=== PATIENT | male | born 1955 | race Caucasian/White ===

== ENCOUNTER → 2017-03-01 | Outpatient (CLI) | payer MEDICARE ==
[2017-03-01 17:51] LABS: Blood Urea Nitrogen 12 mg/dL (9-20); Non-African American GFR(MDRD) >60 (>60 ml/min/1.73 sqM)
== END | disposition home or self-care (01) ==
LOC: LABWHC1 16:55
PROVIDERS: ATTEND Psychiatry & Neurology Pain Medicine
DX: Z01.812 Encounter for preprocedural laboratory examination (principal); R41.3 Other amnesia
CPT/HCPCS: 36415; 82565; 84520

== ENCOUNTER → 2017-03-04 | Outpatient (CLI) | payer MEDICARE ==
--- NOTE | 2017-03-04 18:48 | MR ---
MRI brain with and without contrast HISTORY: Memory loss, R 41.3 Multiplanar multisequence and postcontrast images obtained through the brain following 18 cc MultiHan ce IV. No comparisons There is no restricted diffusion. There is no hemorrhage or hydrocephalus. Cortical atrophy is likely age-related. Pituitary, corpus callosum, cervical medullary junction, cerebellopontine angles are no rmal. There may be mucus retention cyst within the maxillary sinus, mucosal disease is present bilate rally. There are normal vascular flow voids. Increased signal on inversion recovery T2-weighted seque nces within the amanda, scattered hyperintensities also present within the periventricular white matter on inversion recovery and T2-weighted sequences. There are approximately 20-30 lesions. There is no abnormal enhancement following contrast administration. The orbits show a symmetric appearance. IMPRESSION: Findings likely represent demyelination related to chronic small vessel ischemia in the a ppropriate clinical setting. Age-related atrophy. Sinus disease.
== END | disposition home or self-care (01) ==
LOC: RADMRIMAIN 14:09
PROVIDERS: ATTEND Psychiatry & Neurology Pain Medicine
DX: R41.3 Other amnesia (principal); G31.9 Degenerative disease of nervous system, unspecified
CPT/HCPCS: 70553; A9577

== ENCOUNTER → 2017-03-31 | Outpatient (CLI) | payer MEDICARE ==
--- NOTE | 2017-03-31 15:10 | NM ---
EXAMINATION TYPE: NM DatScan Brain SPECT DATE OF EXAM: 03/31/2017 2:48 PM COMPARISON: NONE HISTORY: Memory loss TECHNIQUE: 10 drops of Lugol's solution was administered 1 hour prior to injection as a thyroid bloc gay agent. After the administration of 4.26 mCi I-123 Ioflupane DaTscan. Images obtained 3 hours p ost injection. SPECT images of the brain were acquired with axial and coronal reconstructions. FINDINGS: There is a normal comma shape to the striata demonstrated bilaterally. There is balanced lo ss bilaterally, slightly greater on the right than the left. 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
== END | disposition home or self-care (01) ==
LOC: RADNMMAIN 09:54
PROVIDERS: ATTEND Psychiatry & Neurology Neurology
DX: R41.3 Other amnesia (principal)
CPT/HCPCS: 78607; A9584

== ENCOUNTER 2018-02-06 11:31 | Observation (INO) | payer MEDICARE ==
[2018-02-06] MEDS ORDERED: ASPIRIN 81 MG PO STA (11:51)
[2018-02-06] MEDS ORDERED: NITROGLYCERIN OINT 1 INCH/GM PACKET TOPICAL STA (11:51)
--- NOTE | 2018-02-06 11:54 | ED ---
General Adult HPI - General Chief complaint: Chest Pain Stated complaint: High BP Time Seen by Provider: 02/06/18 11:35 Source: patient, RN notes reviewed Mode of arrival: wheelchair Limitations: no limitations - History of Present Illness Initial comments: This is a 62-year-old male who presents emergency Department with a past medical history significant for stents in December and a stent a few years ago. Patient states she was lying on the floor playing with his dog and all of a sudden he became extremely diaphoretic and dizzy he got up he was a little bit short of breath but he had no chest pain. Patient states he is exact same symptoms he had with every prior to his stenting. Patient states the only difference was he did have a little chest pain in December and today he had none. Patient denies any palpitations. Patient denies any recent fever chills or cough. Patient states he was dizzy but he did not feel near syncopal. Patient denies any leg swelling patient denies any calf pain. Patient denies abdominal pain patient denies nausea vomiting diarrhea. Patient states he feels better currently. - Related Data Home Medications Medication Instructions Recorded Confirmed Nadolol 40 mg PO QAM 10/07/14 02/06/18 Nitroglycerin Sl Tabs [Nitrostat] 0.4 mg SUBLINGUAL Q5M PRN 10/07/14 02/06/18 buPROPion HCL [Wellbutrin XL] 300 mg PO QAM 10/07/14 02/06/18 Doxazosin [Cardura] 4 mg PO BID 03/03/15 02/06/18 lamoTRIgine 150 mg PO BID 03/03/15 02/06/18 Donepezil [Aricept] 10 mg PO BID 12/20/17 02/06/18 Hydrocodone/Acetaminophen [[place] 1 tab PO Q6HR PRN 12/20/17 02/06/18 7.5-325] Memantine HCl [Namenda] 5 mg PO BID 12/20/17 02/06/18 Pramipexole Di-HCl [Mirapex] 1 mg PO HS 12/20/17 02/06/18 Primidone [Mysoline] 100 mg PO BID 12/20/17 02/06/18 QUEtiapine FUMARATE [SEROquel] 25 mg PO BID 12/20/17 02/06/18 Sertraline [Zoloft] 150 mg PO DAILY 12/20/17 02/06/18 Previous Rx's Medication Instructions Recorded Zolpidem [Ambien] 10 mg PO HS PRN #7 tab 11/28/15 Aspirin 81 mg PO DAILY #30 chew 12/22/17 Clopidogrel [Plavix] 75 mg PO DAILY #30 tab 12/24/17 Lisinopril [Prinivil] 20 mg PO DAILY #30 tablet 12/24/17 Pravastatin Sodium [Pravachol] 40 mg PO HS #30 tab 12/24/17 Allergies Allergy/AdvReac Type Severity Reaction Status Date / Time No Known Allergies Allergy Verified 02/06/18 12:14 Review of Systems ROS Statement: Those systems with pertinent positive or pertinent negative responses have been documented in the HPI. ROS Other: All systems not noted in ROS Statement are negative. Past Medical History Past Medical History: Coronary Artery Disease (CAD), Chest Pain / Angina, Dementia, GERD/Reflux, GI Bleed, Hyperlipidemia, Hypertension, Myocardial Infarction ([place]), Neurologic Disorder, Pneumonia, Prostate Disorder, Renal Disease, Skin Disorder, Sleep Apnea/CPAP/BIPAP Additional Past Medical History / Comment(s): 02/08/16 Pt presented to [facility] ER with chest pain which started last nite and he had sweating, SOB and nausea along with it. Pt spoke to his PCP and he was advised to come to the ER. Pt is being admitted with clinical impression of chest pain. Other HX: Early parkinson's with essential tremors, recent R nephrolithiasis with surgery, EDITH with no CPAP, diarrhea off and on, pneumonia/bronchitis, BPH, blood in stool-EGD /colonoscopy were normal. past hiatal hernia(sx), past falls last one 02/2017 Last Myocardial Infarction Date:: 06/09/13 History of Any Multi-Drug Resistant Organisms: None Reported Past Surgical History: Heart Catheterization, Heart Catheterization With Stent Additional Past Surgical History / Comment(s): 05/2013 stent to LAD and then a cardiac cath which showed stent patent, Recent R kidney stone removal, 03/19/15 Laparoscopic Elizabeth fundlaplication. SKIN GRAFTS CHEST & BACK FROM BASSETT AT 13 YRS OLD., COLONOSCOPY. EGD, L lazy eye surgery as toddler. Past Anesthesia/Blood Transfusion Reactions: No Reported Reaction Additional Past Anesthesia/Blood Transfusion Reaction / Comment(s): Pt received blood in 1967 without reaction. Date of Last Stent Placement:: 06/09/13 Past Psychological History: Bipolar, Depression Smoking Status: Never smoker Past Drug Use History: None Reported - Past Family History Mother Family Medical History: Liver Disease Additional Family Medical History / Comment(s): Mother was an alcoholic. She of cirrhosis of the liver at age 60yrs. Father Family Medical History: Cancer, Coronary Artery Disease (CAD), Myocardial Infarction ([place]) Additional Family Medical History / Comment(s): SKIN CA. Father of a [place] at age 65 yrs. Brother(s) Family Medical History: Cancer Additional Family Medical History / Comment(s): LEUKEMIA, LYMPH NODE CA AND MULTIPLE MYELOMA. General Exam - General Exam Comments Initial Comments: GENERAL: Patient is well-developed and well-nourished. Patient is nontoxic and well- hydrated and is in mild distress. ENT: Neck is soft and supple. No significant lymphadenopathy is noted. Oropharynx is clear. Moist mucous membranes. Neck has full range of motion without eliciting any pain. EYES: The sclera were anicteric and conjunctiva were pink and moist. Extraocular movements were intact and pupils were equal round and reactive to light. Eyelids were unremarkable. PULMONARY: Unlabored respirations. Good breath sounds bilaterally. No audible rales rhonchi or wheezing was noted. CARDIOVASCULAR: There is a regular rate and rhythm without any murmurs gallops or rubs. ABDOMEN: Soft and nontender with normal bowel sounds. No palpable organomegaly was noted. There is no palpable pulsatile mass. SKIN: Skin is clear with no lesions or rashes and otherwise unremarkable. NEUROLOGIC: Patient is alert and oriented x3. Cranial nerves II through XII are grossly intact. Motor and sensory are also intact. Normal speech, volume and content. Symmetrical smile. MUSCULOSKELETAL: Normal extremities with adequate strength and full range of motion. No lower extremity swelling or edema. No calf tenderness. LYMPHATICS: No significant lymphadenopathy is noted PSYCHIATRIC: Normal psychiatric evaluation. Normal interpersonal interactions appears functionally intact in deals appropriately with others. No signs of depression. No signs of anxiety. Limitations: no limitations Course Vital Signs 02/06/18 02/06/18 02/06/18 11:44 11:54 12:39 Temperature 98.6 F Pulse Rate 47 L 55 L Respiratory 16 17 Rate Blood Pressure 194/105 161/95 147/83 O2 Sat by Pulse 96 94 L Oximetry Medical Decision Making - Medical Decision Making EKG shows sinus bradycardia 51 bpm DE interval 282 QRS is 90 QT interval 470 QTC is 433. Patient's EKG shows no ST segment elevation or depression or T wave abnormalities are noted Patient's chest x-ray shows no acute abnormality. Patient's been asymptomatic since being in the emergency department. Blood pressure for them bilaterally and there was no discrepancy. Patient was started on heparin. I spoke with Dr. Horton he agreed to admit the patient admitted the patient continued aspirin Nitropaste and heparin on the floor. - Lab Data Result diagrams: 02/06/18 11:50 02/06/18 11:50 Lab Results 02/06/18 02/06/18 02/06/18 Range/Units 11:50 11:50 11:50 WBC 5.9 (3.8-10.6) k/uL RBC 4.62 (4.30-5.90) m/uL Hgb 13.3 (13.0-17.5) gm/dL Hct 40.2 (39.0-53.0) % MCV 87.0 (80.0-100.0) fL MCH 28.8 (25.0-35.0) pg MCHC 33.1 (31.0-37.0) g/dL RDW 14.2 (11.5-15.5) % Plt Count 252 (150-450) k/uL Neutrophils % 64 % Lymphocytes % 18 % Monocytes % 8 % Eosinophils % 7 % Basophils % 1 % Neutrophils # 3.8 (1.3-7.7) k/uL Lymphocytes # 1.1 (1.0-4.8) k/uL Monocytes # 0.5 (0-1.0) k/uL Eosinophils # 0.4 (0-0.7) k/uL Basophils # 0.0 (0-0.2) k/uL PT (9.0-12.0) sec INR (<1.2) APTT (22.0-30.0) sec Sodium 143 (137-145) mmol/L Potassium 3.9 (3.5-5.1) mmol/L Chloride 106 (98-107) mmol/L Carbon Dioxide 23 (22-30) mmol/L Anion Gap 14 mmol/L BUN 13 (9-20) mg/dL Creatinine 0.73 (0.66-1.25) mg/dL Est GFR (CKD-EPI)AfAm >90 (>60 ml/min/1.73 sqM) Est GFR (CKD-EPI)NonAf >90 (>60 ml/min/1.73 sqM) Glucose 97 (74-99) mg/dL Calcium 9.0 (8.4-10.2) mg/dL Magnesium 2.1 (1.6-2.3) mg/dL Total Bilirubin 0.4 (0.2-1.3) mg/dL AST 25 (17-59) U/L ALT 33 (21-72) U/L Alkaline Phosphatase 72 (38-126) U/L Total Creatine Kinase 86 (55-170) U/L CK-MB (CK-2) 1.7 (0.0-2.4) ng/mL CK-MB (CK-2) Rel Index 2.0 Troponin I <0.012 (0.000-0.034) ng/mL Total Protein 7.0 (6.3-8.2) g/dL Albumin 4.1 (3.5-5.0) g/dL 02/06/18 Range/Units 11:50 WBC (3.8-10.6) k/uL RBC (4.30-5.90) m/uL Hgb (13.0-17.5) gm/dL Hct (39.0-53.0) % MCV (80.0-100.0) fL MCH (25.0-35.0) pg MCHC (31.0-37.0) g/dL RDW (11.5-15.5) % Plt Count (150-450) k/uL Neutrophils % % Lymphocytes % % Monocytes % % Eosinophils % % Basophils % % Neutrophils # (1.3-7.7) k/uL Lymphocytes # (1.0-4.8) k/uL Monocytes # (0-1.0) k/uL Eosinophils # (0-0.7) k/uL Basophils # (0-0.2) k/uL PT 10.3 (9.0-12.0) sec INR 1.0 (<1.2) APTT 23.2 (22.0-30.0) sec Sodium (137-145) mmol/L Potassium (3.5-5.1) mmol/L Chloride (98-107) mmol/L Carbon Dioxide (22-30) mmol/L Anion Gap mmol/L BUN (9-20) mg/dL Creatinine (0.66-1.25) mg/dL Est GFR (CKD-EPI)AfAm (>60 ml/min/1.73 sqM) Est GFR (CKD-EPI)NonAf (>60 ml/min/1.73 sqM) Glucose (74-99) mg/dL Calcium (8.4-10.2) mg/dL Magnesium (1.6-2.3) mg/dL Total Bilirubin (0.2-1.3) mg/dL AST (17-59) U/L ALT (21-72) U/L Alkaline Phosphatase (38-126) U/L Total Creatine Kinase (55-170) U/L CK-MB (CK-2) (0.0-2.4) ng/mL CK-MB (CK-2) Rel Index Troponin I (0.000-0.034) ng/mL Total Protein (6.3-8.2) g/dL Albumin (3.5-5.0) g/dL Disposition Clinical Impression: Unstable angina Disposition: ADMITTED IP TO THIS HOSP Referrals: Hiren Horton DO [Primary Care Provider] - 1-2 days Time of Disposition: 12:53
[2018-02-06 12:04] LABS: Basophils % (A) 1 %; Eosinophils # (A) 0.4 k/uL (0-0.7); Eosinophils % (A) 7 %; HCT 40.2 % (39.0-53.0); HGB 13.3 gm/dL (13.0-17.5); Lymphocytes # (A) 1.1 k/uL (1.0-4.8); Lymphocytes % (A) 18 %; MCH 28.8 pg (25.0-35.0); MCHC 33.1 g/dL (31.0-37.0); Mean Platelet Volume 6.7; Monocytes # (A) 0.5 k/uL (0-1.0); Monocytes % (A) 8 %; Neutrophils # (A) 3.8 k/uL (1.3-7.7); Neutrophils % (A) 64 %; Platelet Count 252 k/uL (150-450); RBC 4.62 m/uL (4.30-5.90); RDW 14.2 % (11.5-15.5); WBC 5.9 k/uL (3.8-10.6)
[2018-02-06 12:10] LABS: ALT 33 U/L (21-72); AST 25 U/L (17-59); Albumin 4.1 g/dL (3.5-5.0); Alkaline Phosphatase 72 U/L (38-126); Anion Gap 14 mmol/L; Blood Urea Nitrogen 13 mg/dL (9-20); Carbon Dioxide 23 mmol/L (22-30); Chloride 106 mmol/L (98-107); Glucose 97 mg/dL (74-99); Magnesium 2.1 mg/dL (1.6-2.3); Potassium 3.9 mmol/L (3.5-5.1); Sodium 143 mmol/L (137-145); Total Bilirubin 0.4 mg/dL (0.2-1.3)
--- NOTE | 2018-02-06 12:13 | XR ---
EXAMINATION TYPE: XR chest 2V DATE OF EXAM: 02/06/2018 COMPARISON: 12/20/2017 HISTORY: Chest pain TECHNIQUE: Frontal and lateral views of the chest are obtained. FINDINGS: There is no focal air space opacity, pleural effusion, or pneumothorax seen. The cardiac silhouette size is upper limits of normal. The osseous structures are intact. Minimal multilevel de generative changes of the thoracic spine are noted. IMPRESSION: No acute cardiopulmonary process.
[2018-02-06 12:23] LABS: Partial Thromboplastin Time 23.2 sec (22.0-30.0); Prothrombin Time 10.3 sec (9.0-12.0)
[2018-02-06 12:24] LABS: Creatine Kinase 86 U/L (55-170)
[2018-02-06 12:36] LABS: Creatine Kinase MB 1.7 ng/mL (0.0-2.4); Troponin I <0.012 ng/mL (0.000-0.034)
[2018-02-06] MEDS ORDERED: HEPARIN SODIUM,PORCINE 5,000 UNIT/ML 1 ML VIAL IV ONE (12:53)
[2018-02-06] MEDS ORDERED: NITROGLYCERIN SL TABS 0.4 MG TAB SUBLINGUAL PRN ×2 (12:55→18:24)
[2018-02-06] MEDS: HEPARIN SOD,PORK IN 0.45% NACL 25,000 UNIT in 0.45% NACL 1 500ML.BAG IV SCH (13:21)
[2018-02-06] MEDS ORDERED: ZOLPIDEM 10 MG TAB PO PRN (18:24)
[2018-02-06] MEDS ORDERED: HYDROcodone/APAP 7.5-325MG 1 EACH TAB PO PRN (18:24)
[2018-02-06 18:42] LABS: Creatine Kinase 72 U/L (55-170)
[2018-02-06 18:56] LABS: Creatine Kinase MB 1.7 ng/mL (0.0-2.4); Troponin I <0.012 ng/mL (0.000-0.034)
[2018-02-06] MEDS: DONEPEZIL 10 MG TAB PO SCH (20:49)
[2018-02-06] MEDS: DOXAZOSIN 4 MG TAB PO SCH (20:49)
[2018-02-06] MEDS: NITROGLYCERIN OINT 1 INCH/GM PACKET TOPICAL SCH ×2 (20:49→23:07)
[2018-02-06] MEDS: lamoTRIgine 100 MG TAB PO SCH (20:50)
[2018-02-06] MEDS: QUEtiapine 25 MG TAB PO SCH (20:50)
[2018-02-06] MEDS: PRIMIDONE 50 MG TAB PO SCH (20:50)
[2018-02-06] MEDS: MEMANTINE 5 MG TAB PO SCH (20:50)
[2018-02-06] MEDS ORDERED: PRAMIPEXOLE 1 MG TAB PO SCH (21:00)
[2018-02-06] MEDS ORDERED: PRAVASTATIN SODIUM 40 MG TAB PO SCH (21:00)
[2018-02-07 01:58] LABS: Creatine Kinase 58 U/L (55-170)
[2018-02-07 02:12] LABS: Creatine Kinase MB 1.1 ng/mL (0.0-2.4); Troponin I <0.012 ng/mL (0.000-0.034)
[2018-02-07 04:58] LABS: Cholesterol 201 mg/dL (<200); HDL Cholesterol 34 mg/dL (40-60); LDL Cholesterol,Calculated 128 mg/dL (0-99); Triglycerides 195 mg/dL (<150)
[2018-02-07] MEDS: NITROGLYCERIN OINT 1 INCH/GM PACKET TOPICAL SCH ×2 (06:04→13:09)
[2018-02-07] MEDS ORDERED: ATORVASTATIN 80 MG TAB PO SCH (09:00)
[2018-02-07] MEDS ORDERED: CLOPIDOGREL 75 MG TAB PO SCH (09:00)
[2018-02-07] MEDS ORDERED: buPROPion XL 300 MG TAB.ER.24H PO SCH (09:00)
[2018-02-07] MEDS ORDERED: LISINOPRIL 20 MG TAB PO SCH (09:00)
[2018-02-07] MEDS ORDERED: NADOLOL 20 MG TAB PO SCH (09:00)
[2018-02-07] MEDS ORDERED: ASPIRIN 325 MG TAB PO SCH (09:00)
[2018-02-07] MEDS ORDERED: ASPIRIN 81 MG PO SCH (09:00)
[2018-02-07] MEDS ORDERED: SERTRALINE 50 MG TAB PO SCH (09:00)
[2018-02-07] MEDS ORDERED: AMINOPHYLLINE 500 MG/20 ML VIAL IV PRN (09:30)
[2018-02-07] MEDS ORDERED: REGADENOSON 0.4 MG/5 ML SYRINGE IV ONE (09:30)
--- NOTE | 2018-02-07 10:38 | P.HPIM ---
History of Present Illness H&P Date: 02/07/18 Chief Complaint: Dizziness, diaphoresis 62-year-old male who presented to the emergency room with a chief complaint of diaphoresis and dizziness. The patient states he was playing with his dog when he suddenly began to feel dizzy and noticed he was diaphoretic. The patient states these symptoms were similar to symptoms that he experienced when he required stent placement and became worried. He denied any chest pain. Denies shortness of breath. Denies nausea or vomiting. The patient has a history of hyperlipidemia, hypertension, myocardial infarction , pneumonia, sleep apnea, and memory impairment. The patient also has a history of coronary artery disease and underwent a cardiac catheterization on after having an abnormal stress test and had 3 stents placed: Mid RCA, distal left circumflex, and mid left circumflex. The patient has also had a prior stent placed to the LAD. Chest x-ray: Negative for an acute process. EKG: Sinus bradycardia. Rate 51. No ST elevation or depression. Laboratory data: WBC 5.9. Hemoglobin 13.3. Platelet count 252. Sodium 143. Potassium 3.9. BUN 13. Creatinine 0.73. Glucose 97. Magnesium 2.1. Troponins negative 3 The patient was admitted to the hospital under the care of Dr. Horton to the observation unit. Consultations were placed to cardiology. Review of Systems GENERAL: Positive for diaphoresis and dizziness, which has resolved. Patient denies fever. Denies chills. EYES: Denies blurred vision. Denies vision changes. Denies eye pain. EARS, NOSE, MOUTH, & THROAT: Denies headache. Denies sore throat. Denies ear pain. RESPIRATORY: Denies cough. Denies shortness of breath. Denies sputum production. Denies hemoptysis. CARDIOVASCULAR: Denies chest pain or pressure. Denies palpitations. Denies arrhythmias. GASTROINTESTINAL: Denies abdominal pain. Denies diarrhea. Denies constipation. Denies nausea. Denies vomiting. Denies heartburn. Denies blood in the stool. GENITOURINARY: Denies urinary frequency. Denies burning. Denies dysuria. Denies cloudy urine. Denies blood in the urine. MUSCULOSKELETAL: Denies myalgias. Denies joint swelling. Denies decreased range of motion beyond patients baseline. INTEGUMENTARY: Denies pruitis. Denies rash. PSYCHIATRIC: Denies suicidal or homicial ideations. ENDOCRINE: Denies weight change. Denies polydipsia. Denies polyuria. HEMATOLOGIC: Denies bleeding disorders. Past Medical History Past Medical History: Coronary Artery Disease (CAD), Chest Pain / Angina, Dementia, GERD/Reflux, GI Bleed, Hyperlipidemia, Hypertension, Myocardial Infarction ([place]), Neurologic Disorder, Pneumonia, Prostate Disorder, Renal Disease, Skin Disorder, Sleep Apnea/CPAP/BIPAP Additional Past Medical History / Comment(s): Pt recently admitted to [facility] with chest pain/had another PCI with stent. Other hx: early parkinson's with essential tremors, R nephrolithiasis with surgery, EDITH with no CPAP, diarrhea off and on, pneumonia/bronchitis, BPH, blood in stool-EGD/colonoscopy were normal, past hiatal hernia(sx), past falls. Last Myocardial Infarction Date:: 06/09/13 History of Any Multi-Drug Resistant Organisms: None Reported Past Surgical History: Heart Catheterization, Heart Catheterization With Stent Additional Past Surgical History / Comment(s): 05/2013 stent to LAD and then a cardiac cath which showed stent patent, Recent R kidney stone removal, 03/19/15 Laparoscopic Elizabeth fundlaplication. SKIN GRAFTS CHEST & BACK FROM BASSETT AT 13 YRS OLD., COLONOSCOPY. EGD, Jennifer rosales eye surgery as toddler. Past Anesthesia/Blood Transfusion Reactions: No Reported Reaction Additional Past Anesthesia/Blood Transfusion Reaction / Comment(s): Pt received blood in 1967 without reaction. Date of Last Stent Placement:: 12/2017 Smoking Status: Never smoker - Past Family History Mother Family Medical History: Liver Disease Additional Family Medical History / Comment(s): Mother was an alcoholic. She of cirrhosis of the liver at age 60yrs. Father Family Medical History: Cancer, Coronary Artery Disease (CAD), Myocardial Infarction ([place]) Additional Family Medical History / Comment(s): SKIN CA. Father of a [place] at age 65 yrs. Brother(s) Family Medical History: Cancer Additional Family Medical History / Comment(s): LEUKEMIA, LYMPH NODE CA AND MULTIPLE MYELOMA. Medications and Allergies Home Medications Medication Instructions Recorded Confirmed Type Nadolol 40 mg PO QAM 10/07/14 02/06/18 History Nitroglycerin Sl Tabs [Nitrostat] 0.4 mg SUBLINGUAL Q5M PRN 10/07/14 02/06/18 History buPROPion HCL [Wellbutrin XL] 300 mg PO QAM 10/07/14 02/06/18 History Doxazosin [Cardura] 4 mg PO BID 03/03/15 02/06/18 History lamoTRIgine 150 mg PO BID 03/03/15 02/06/18 History Zolpidem [Ambien] 10 mg PO HS PRN #7 tab 11/28/15 02/06/18 Rx Donepezil [Aricept] 10 mg PO BID 12/20/17 02/06/18 History Hydrocodone/Acetaminophen [[place] 1 tab PO Q6HR PRN 12/20/17 02/06/18 History 7.5-325] Memantine HCl [Namenda] 5 mg PO BID 12/20/17 02/06/18 History Pramipexole Di-HCl [Mirapex] 1 mg PO HS 12/20/17 02/06/18 History Primidone [Mysoline] 100 mg PO BID 12/20/17 02/06/18 History QUEtiapine FUMARATE [SEROquel] 25 mg PO BID 12/20/17 02/06/18 History Sertraline [Zoloft] 150 mg PO DAILY 12/20/17 02/06/18 History Aspirin 81 mg PO DAILY #30 chew 12/22/17 02/06/18 Rx Clopidogrel [Plavix] 75 mg PO DAILY #30 tab 12/24/17 02/06/18 Rx Lisinopril [Prinivil] 20 mg PO DAILY #30 tablet 12/24/17 02/06/18 Rx Pravastatin Sodium [Pravachol] 40 mg PO HS #30 tab 12/24/17 02/06/18 Rx Allergies Allergy/AdvReac Type Severity Reaction Status Date / Time No Known Allergies Allergy Verified 02/06/18 12:14 Physical Exam Vitals: Vital Signs Temp Pulse Pulse Resp BP BP Pulse Ox 02/07/18 08:00 97.8 F 55 L 18 155/91 96 02/07/18 04:00 97.6 F 55 L 16 137/76 93 L 02/07/18 00:00 54 L 16 02/06/18 23:36 98.1 F 54 L 16 136/81 94 L 02/06/18 20:00 49 L 16 02/06/18 19:35 97.8 F 49 L 16 151/76 95 02/06/18 18:44 98 02/06/18 18:01 97.6 F 46 L 17 159/88 96 02/06/18 17:45 96.9 F L 48 L 17 118/62 96 02/06/18 16:05 98.7 F 47 L 17 157/82 98 02/06/18 14:23 88 17 139/77 97 02/06/18 13:32 54 L 16 128/75 98 02/06/18 12:39 55 L 17 147/83 94 L 02/06/18 11:54 161/95 02/06/18 11:44 98.6 F 47 L 16 194/105 96 Intake and Output 02/06/18 02/07/18 02/07/18 22:59 06:59 14:59 Intake Total 377.265 473.282 Balance 377.265 473.282 Intake: IV 320 0.9 160 Heparin Sod,Pork in 0.45% 160 NaCl 25,000 unit In 0.45 % NaCl 1 500ml.bag @ 10. 02 UNITS/KG/HR 19.99 mls/ hr IV .Q24H [facility]OR[facility] Rx#: [id number] Intake, IV Titration 137.265 153.282 Amount Heparin Sod,Pork in 0.45% 137.265 153.282 NaCl 25,000 unit In 0.45 % NaCl 1 500ml.bag @ 10. 02 UNITS/KG/HR 19.99 mls/ hr IV .Q24H [facility]ORES Rx#: [id number] Oral 240 Other: Voiding Method Toilet Toilet Toilet # Voids 1 Weight 99.7 kg GENERAL: This is a 62-year-old male in no apparent distress at the time of examination. Pleasant and cooperative. HEENT: Head is atraumatic, normocephalic. Pupils are equal, round, and reactive to light. Sclerae anicteric. Conjunctivae are clear. Mucus membranes of the mouth are moist. Neck is supple. RESPIRATORY: Clear to ausculation. No wheezes, rales, or rhonchi. No use of accessory muscles. Patient maintaining oxygen saturation greater than 92%. No chest wall tenderness is noted on palpation or with deep breathing. CARDIOVASCULAR: Bradycardic. Regular rate and rhythm. S1 and S2 noted. No systolic or diastolic murmur auscultated. No JVD noted. No S3 or S4 noted. GASTROINTESTINAL: No distention noted. Abdomen soft and round. Normal active bowel sounds auscultated x 4 quadrants. No pain or tenderness noted upon palpation. INTEGUMENTARY: No cyanosis. No jaundice. No rashes noted. No cellulitis noted. EXTREMITIES: 2+ peripheral pulses. No evidence of peripheral edema. No calf tenderness noted. NEUROLOGIC: Cranial nerves II-XII intact. PSYCHIATRIC: Awake, alert, and oriented X 3. Appropriate affect. Intact judgement and insight. Results CBC & Chem 7: 02/06/18 11:50 02/06/18 11:50 Labs: Abnormal Lab Results - Last 24 Hours (Table) 02/06/18 02/06/18 02/07/18 Range/Units 11:30 19:24 01:05 APTT 32.8 H 38.4 H (22.0-30.0) sec Triglycerides 195 H (<150) mg/dL Cholesterol 201 H (<200) mg/dL LDL Cholesterol, Calc 128 H (0-99) mg/dL HDL Cholesterol 34 L (40-60) mg/dL 02/07/18 Range/Units 07:30 APTT 56.8 H (22.0-30.0) sec Triglycerides (<150) mg/dL Cholesterol (<200) mg/dL LDL Cholesterol, Calc (0-99) mg/dL HDL Cholesterol (40-60) mg/dL Thrombosis Risk Factor Assmnt - Choose All That Apply Any of the Below Risk Factors Present?: Yes Each Factor Represents 1 point: Obesity (BMI >25) Other Risk Factors: Yes Each Risk Factor Represents 2 Points: Age 61-74 years Other congenital or acquired thrombophilia - If yes, enter type in comment: No Thrombosis Risk Factor Assessment Total Risk Factor Score: 3 Thrombosis Risk Factor Assessment Level: Moderate Risk Assessment and Plan Plan: ASSESSMENT: 1. Complaints of dizziness and diaphoresis in a patient with recent stent placement who describes symptoms as being similiar to previous episode, troponins negative x 3, rule out acute coronary syndrome 2. Coronary artery disease with recent cardiac catheterization on 12/23/2017 with stent placement to the mid RCA, distal left circumflex, and mid left circumflex. Also previous stent to LAD 3. Hyperlipidemia 4. Essential hypertension 5. Sleep apnea PLAN: Cardiology on consult. Appreciate recommendations and input Patient will undergo stress test today Home meds as appropriate Monitor labs GI prophylaxis: Protonix 40 mg PO Daily DVT prophylaxis: Patient is currently on a heparin drip Monitor vital signs and address as appropriate Further recommendations pending patient's course Nurse practitioner note has been reviewed by physician. Signing provider agrees with the documented findings, assessment, and plan of care.
[2018-02-07 12:30] VITALS: BP 160/98; PULSE 57; RESP 16; TEMP 98.1
[2018-02-07] MEDS: MEMANTINE 5 MG TAB PO SCH (12:38)
[2018-02-07] MEDS: QUEtiapine 25 MG TAB PO SCH (12:38)
[2018-02-07] MEDS: DOXAZOSIN 4 MG TAB PO SCH (12:38)
[2018-02-07] MEDS: PRIMIDONE 50 MG TAB PO SCH (12:38)
[2018-02-07] MEDS: DONEPEZIL 10 MG TAB PO SCH (12:38)
[2018-02-07] MEDS: lamoTRIgine 100 MG TAB PO SCH (12:39)
--- NOTE | 2018-02-07 12:51 | CONS ---
CONSULTATION This is a 62-year-old gentleman with a history of multivessel PCI. Sometime probably 3 years or more ago, he had a LAD stenting performed. The details of the LAD stenting are not available to me. As recently as December of this year, he underwent stenting of circumflex as well as the right coronary artery, performed by Dr. Hernandez on 12/23/2017. At that time, the LAD was widely patent. He sees Dr. Gibbons usually in the office as an outpatient. He came into the hospital yesterday mainly with a complaint of feeling suddenly diaphoretic, sick and had pressure and discomfort in the chest. The quality of his chest discomfort is not strongly suggestive angina, but patient and both insist that he had a similar presentation last time. He was playing with his dog and then lying on the floor, suddenly felt dizzy, diaphoretic, then had pressure and discomfort across the chest. This pain has not recurred. He is feeling well at this time. His troponins are normal. EKG does not reveal acute changes. However, patient and both insist that his discomfort in the chest is strongly suggestive of his similar episode in December when he came in and had PCI of both RCA and distal circumflex and mid circumflex. In view of this, I am recommending a Lexiscan stress test. At the time of my evaluation, patient is resting comfortably without symptoms. PAST MEDICAL HISTORY: CAD with multivessel PCI. More than 3 years ago, LAD stenting and the vessel was patent in December of this year. He had stenting of mid and distal circumflex and RCA in December. He has history of prior VT, details unclear. He also has history of obstructive sleep apnea, wears a CPAP. He has had some Elizabeth fundoplication surgery performed according to the chart. SOCIAL HISTORY: Patient is not a smoker. Does not consume alcohol. MEDICATIONS: At home include nadolol 40 mg daily, Wellbutrin, Cardura, aspirin 81 mg daily, Plavix 75 mg daily, lisinopril 20 mg daily, pravastatin 40 mg daily. LDL cholesterol is still elevated of more than 120. He also takes Mysoline, Seroquel, Zoloft. ALLERGIES: No known drug allergies. PHYSICAL EXAMINATION: Blood pressure is 138/70, pulse rate is 60 per minute, regular. HEENT: Unremarkable. Fundus was not examined by me. Neck is supple. No JVD. I do not hear a carotid bruit. Heart exam reveals S1, S2 heard normally. No significant murmurs. Lungs are clear. Abdomen is soft, nontender. Lower extremities reveal diminished pulses. Central nervous system is normal. EKG revealed sinus bradycardia, no acute changes, voltage criteria for LVH. IMPRESSION: 1. Chest pain syndrome with diaphoresis. Cannot exclude angina in a patient with multivessel PCI. 2. Hypertension. 3. Hyperlipidemia. 4. History of some obstructive sleep apnea syndrome, on CPAP. RECOMMENDATIONS: I am recommending that we increase activity. If he has any symptoms, I will perform cardiac cath. If he has no symptoms, will perform a Lexiscan stress test and then make further recommendations. Based on the results of the stress test, will make further recommendations. Discussed my thoughts in detail with the patient and . Thank you very much for the consult. CARL / KAVON: [id number] /
--- NOTE | 2018-02-07 12:51 | NM ---
EXAMINATION TYPE: NM stress lexiscan cardiolite DATE OF EXAM: 02/07/2018 COMPARISON: NONE HISTORY: Chest pain TECHNIQUE: After the intravenous administration of 10.26 mCi Tc 99m Sestamibi - Cardiolite resting S PECT images acquired 45 minutes post injection. The patient received 0.4mg Lexiscan, 26.3 mCi Tc 99m Sestamibi - Stress images obtained [address] injection FINDINGS: Review of stress and rest SPECT images demonstrates no distinct perfusion abnormality. Gated analysi s shows normal wall motion with an estimated left ventricular ejection fraction of 56 %. TID is withi n normal limits calculated at 0.88. IMPRESSION: 1. No scintigraphic evidence for reversible ischemia. 2. Estimated left ventricular ejection fraction of 56%.
[2018-02-07] MEDS: HEPARIN SOD,PORK IN 0.45% NACL 25,000 UNIT in 0.45% NACL 1 500ML.BAG IV SCH (13:10)
--- NOTE | 2018-02-07 14:14 | P.DS ---
Providers Date of admission: 02/06/18 12:55 Expected date of discharge: 02/07/18 Attending physician: Hiren Horton Consults: 02/06/18 12:55 Consult Physician Urgent Consulting Provider: [facility] Reason/Comments: Unstable angina Do you want consulting provider notified?: Yes Primary care physician: Hiren Horton [facility] Course: 62-year-old male who presented to the emergency room with a chief complaint of diaphoresis and dizziness. The patient states he was playing with his dog when he suddenly began to feel dizzy and noticed he was diaphoretic. The patient states these symptoms were similar to symptoms that he experienced when he required stent placement and became worried. He denied any chest pain. Denies shortness of breath. Denies nausea or vomiting. The patient has a history of hyperlipidemia, hypertension, myocardial infarction , pneumonia, sleep apnea, and memory impairment. The patient also has a history of coronary artery disease and underwent a cardiac catheterization on after having an abnormal stress test and had 3 stents placed: Mid RCA, distal left circumflex, and mid left circumflex. The patient has also had a prior stent placed to the LAD. Chest x-ray: Negative for an acute process. EKG: Sinus bradycardia. Rate 51. No ST elevation or depression. Laboratory data: WBC 5.9. Hemoglobin 13.3. Platelet count 252. Sodium 143. Potassium 3.9. BUN 13. Creatinine 0.73. Glucose 97. Magnesium 2.1. Troponins negative 3 The patient was evaluated by cardiology. He underwent stress testing which was negative. He was cleared for discharge from a cardiac standpoint. He is to follow up with his information systems director on an outpatient basis. The patient was deemed stable for discharge. He is to follow up with Dr. Horton and his information systems director on an outpatient basis. patient is to resume all his previous home medications. DISCHARGE DIAGNOSIS: 1. Complaints of dizziness and diaphoresis in a patient with recent stent placement who describes symptoms as being similiar to previous episode, troponins negative x 3, acute coronary syndrome ruled out, stress testing negative 2. Coronary artery disease with recent cardiac catheterization on 12/23/2017 with stent placement to the mid RCA, distal left circumflex, and mid left circumflex. Also previous stent to LAD 3. Hyperlipidemia 4. Essential hypertension 5. Sleep apnea Nurse practitioner note has been reviewed by physician. Signing provider agrees with the documented findings, assessment, and plan of care. Plan - Discharge Summary Discharge Rx Participant: No New Discharge Prescriptions: Continue Nitroglycerin Sl Tabs [Nitrostat] 0.4 mg SUBLINGUAL Q5M PRN PRN Reason: Angina Nadolol 40 mg PO QAM buPROPion HCL [Wellbutrin XL] 300 mg PO QAM Doxazosin [Cardura] 4 mg PO BID lamoTRIgine 150 mg PO BID Zolpidem [Ambien] 10 mg PO HS PRN #7 tab PRN Reason: Agitation Sertraline [Zoloft] 150 mg PO DAILY Primidone [Mysoline] 100 mg PO BID Memantine HCl [Namenda] 5 mg PO BID Donepezil [Aricept] 10 mg PO BID Hydrocodone/Acetaminophen [[place] 7.5-325] 1 tab PO Q6HR PRN PRN Reason: Pain QUEtiapine FUMARATE [SEROquel] 25 mg PO BID Pramipexole Di-HCl [Mirapex] 1 mg PO HS Aspirin 81 mg PO DAILY #30 chew Clopidogrel [Plavix] 75 mg PO DAILY #30 tab Lisinopril [Prinivil] 20 mg PO DAILY #30 tablet Pravastatin Sodium [Pravachol] 40 mg PO HS #30 tab Discharge Medication List Nadolol 40 mg PO QAM 10/07/14 [History] Nitroglycerin Sl Tabs [Nitrostat] 0.4 mg SUBLINGUAL Q5M PRN 10/07/14 [History] buPROPion HCL [Wellbutrin XL] 300 mg PO QAM 10/07/14 [History] Doxazosin [Cardura] 4 mg PO BID 03/03/15 [History] lamoTRIgine 150 mg PO BID 03/03/15 [History] Zolpidem [Ambien] 10 mg PO HS PRN #7 tab 11/28/15 [Rx] Donepezil [Aricept] 10 mg PO BID 12/20/17 [History] Hydrocodone/Acetaminophen [[place] 7.5-325] 1 tab PO Q6HR PRN 12/20/17 [History] Memantine HCl [Namenda] 5 mg PO BID 12/20/17 [History] Pramipexole Di-HCl [Mirapex] 1 mg PO HS 12/20/17 [History] Primidone [Mysoline] 100 mg PO BID 12/20/17 [History] QUEtiapine FUMARATE [SEROquel] 25 mg PO BID 12/20/17 [History] Sertraline [Zoloft] 150 mg PO DAILY 12/20/17 [History] Aspirin 81 mg PO DAILY #30 chew 12/22/17 [Rx] Clopidogrel [Plavix] 75 mg PO DAILY #30 tab 12/24/17 [Rx] Lisinopril [Prinivil] 20 mg PO DAILY #30 tablet 12/24/17 [Rx] Pravastatin Sodium [Pravachol] 40 mg PO HS #30 tab 12/24/17 [Rx] Follow up Appointment(s)/Referral(s): Hiren Horton DO [Primary Care Provider] - 1 Week Rod Gibbons MD [STAFF PHYSICIAN] - 2 Weeks Discharge Disposition: HOME SELF-CARE
[2018-02-08] MEDS ORDERED: PANTOPRAZOLE 40 MG TABLET PO SCH (07:30)
--- NOTE | 2018-02-09 11:29 | EST ---
EXERCISE STRESS AGE: 62 SEX: M HT: 74" WT: 219 PROTOCOL: Lexiscan Cardiolite Stress Test HEART RATE REST: 53 BLOOD PRESSURE REST: 156/87 MAXIMUM HEART RATE ACHIEVED: 80 MAXIMUM BLOOD PRESSURE: 140/84 85% MPHR: 135 100% MPHR: 157 INDICATIONS: Chest pain. CLINICAL INFORMATION: Baseline EKG revealed a sinus mechanism with minor nonspecific ST abnormality. With Lexiscan administration. heart rate went up from 53 to 77 beats per minute. Blood pressure changed from 156/87 to 140/84. Patient had transient shortness of breath. EKG remained unremarkable with minor resting EKG changes. By EKG criteria, this is unremarkable Lexiscan stress test with minor resting changes. The nuclear scan results which are more pertinent, will be reported by the radiologist. MMBRYNL / IJN: [id number] /
== END 2018-02-07 15:10 | disposition home or self-care (01) ==
LOC: EC 11:31 → 3OBS 12:55
PROVIDERS: ADMIT Family Medicine; ATTEND Family Medicine
DX: R42 Dizziness and giddiness (principal); R61 Generalized hyperhidrosis; I25.10 Atherosclerotic heart disease of native coronary artery without angina pectoris; Z95.5 Presence of coronary angioplasty implant and graft; I10 Essential (primary) hypertension; E78.5 Hyperlipidemia, unspecified; G47.33 Obstructive sleep apnea (adult) (pediatric); G25.0 Essential tremor; G20 Parkinson's disease; F03.90 Unspecified dementia, unspecified severity, without behavioral disturbance, psychotic disturbance, mood disturbance, and anxiety; I25.2 Old myocardial infarction; N40.0 Benign prostatic hyperplasia without lower urinary tract symptoms; K21.9 Gastro-esophageal reflux disease without esophagitis; F31.9 Bipolar disorder, unspecified; Z79.82 Long term (current) use of aspirin; Z79.02 Long term (current) use of antithrombotics/antiplatelets; Z79.899 Other long term (current) drug therapy; Z99.89 Dependence on other enabling machines and devices; Z87.01 Personal history of pneumonia (recurrent); Z87.442 Personal history of urinary calculi; Z87.19 Personal history of other diseases of the digestive system; Z87.448 Personal history of other diseases of urinary system; Z83.79 Family history of other diseases of the digestive system; Z81.1 Family history of alcohol abuse and dependence; Z82.49 Family history of ischemic heart disease and other diseases of the circulatory system; Z80.7 Family history of other malignant neoplasms of lymphoid, hematopoietic and related tissues; Z80.6 Family history of leukemia
CPT/HCPCS: 99285 ×2; 96365 ×2; 96366 ×7; 96376 ×2; 36415; 93005; 93017; 80061; 80053; 82550 ×2; 82553 ×2; 83735; 84484 ×2; 85025; 85610; 85730 ×2; 71046; 78452; G0378 ×2; A9500; J1644 ×2; J2785

== ENCOUNTER 2018-03-07 17:18 | Inpatient (IN) | payer MEDICARE ==
[2018-03-07] MEDS ORDERED: RX INFO: IV CONTRAST WAS GIVEN 1 EACH MISC MISCELLANE PRN (19:53)
--- NOTE | 2018-03-07 19:59 | ED ---
SOB HPI - General Chief Complaint: Shortness of Breath Stated Complaint: DSYPNEA ON EXERTION, SENT BY FOR CT Time Seen by Provider: 03/07/18 19:45 Source: patient Mode of arrival: ambulatory Limitations: no limitations - History of Present Illness Initial Comments: This 62-year-old white male presents with a complaint of some dyspnea on exertion. This is been present for approximately 2 months ever since he had some cardiac stents placed. He has an occasional cough which is nonproductive. He states that the dyspnea is worse with exertion and better with rest. He denies any fevers or chills. There is no chest pain. He denies any leg pain or swelling or history of DVT or PE. He denies any history of pulmonary problems particularly asthma or COPD. He is never smoked. He apparently was seen at his primary care physician's office today and they found that he had a lowering of his pulse ox with exertion. He walked around office and his pulse ox dropped from 94% down to 88%. His doctor sent him to the ER for further evaluation and requests that he have a CT angiogram of his chest for prescription with the patient. He denies any other complaints or modifying factors. - Related Data Home Medications Medication Instructions Recorded Confirmed Nadolol 40 mg PO QAM 10/07/14 03/07/18 Nitroglycerin Sl Tabs [Nitrostat] 0.4 mg SUBLINGUAL Q5M PRN 10/07/14 03/07/18 buPROPion HCL [Wellbutrin XL] 300 mg PO QAM 10/07/14 03/07/18 Doxazosin [Cardura] 4 mg PO BID 03/03/15 03/07/18 lamoTRIgine 150 mg PO BID 03/03/15 03/07/18 Donepezil [Aricept] 10 mg PO BID 12/20/17 03/07/18 Hydrocodone/Acetaminophen [[place] 1 tab PO Q6HR PRN 12/20/17 03/07/18 7.5-325] Memantine HCl [Namenda] 5 mg PO BID 12/20/17 03/07/18 Pramipexole Di-HCl [Mirapex] 1 mg PO HS 12/20/17 03/07/18 Primidone [Mysoline] 100 mg PO BID 12/20/17 03/07/18 QUEtiapine FUMARATE [SEROquel] 25 mg PO BID 12/20/17 03/07/18 Sertraline [Zoloft] 150 mg PO DAILY 12/20/17 03/07/18 Eszopiclone [L[place]esta] 2 mg PO HS 03/07/18 03/07/18 Previous Rx's Medication Instructions Recorded Aspirin 81 mg PO DAILY #30 chew 12/22/17 Clopidogrel [Plavix] 75 mg PO DAILY #30 tab 12/24/17 Lisinopril [Prinivil] 20 mg PO DAILY #30 tablet 12/24/17 Pravastatin Sodium [Pravachol] 40 mg PO HS #30 tab 12/24/17 Allergies Allergy/AdvReac Type Severity Reaction Status Date / Time No Known Allergies Allergy Verified 03/07/18 19:57 Review of Systems ROS Statement: Those systems with pertinent positive or pertinent negative responses have been documented in the HPI. ROS Other: All systems not noted in ROS Statement are negative. Past Medical History Past Medical History: Coronary Artery Disease (CAD), Chest Pain / Angina, Dementia, GERD/Reflux, GI Bleed, Hyperlipidemia, Hypertension, Myocardial Infarction (ME), Neurologic Disorder, Pneumonia, Prostate Disorder, Renal Disease, Skin Disorder, Sleep Apnea/CPAP/BIPAP Additional Past Medical History / Comment(s): Pt recently admitted to [facility] with chest pain/had another PCI with stent. Other hx: early parkinson's with essential tremors, R nephrolithiasis with surgery, EDITH with no CPAP, diarrhea off and on, pneumonia/bronchitis, BPH, blood in stool-EGD/colonoscopy were normal, past hiatal hernia(sx), past falls. Last Myocardial Infarction Date:: 06/09/13 History of Any Multi-Drug Resistant Organisms: None Reported Past Surgical History: Heart Catheterization, Heart Catheterization With Stent Additional Past Surgical History / Comment(s): 05/2013 stent to LAD and then a cardiac cath which showed stent patent, Recent R kidney stone removal, 03/19/15 Laparoscopic Elizabeth fundlaplication. SKIN GRAFTS CHEST & BACK FROM [place] AT 13 YRS OLD., COLONOSCOPY. EGD, L lazy eye surgery as toddler. Past Anesthesia/Blood Transfusion Reactions: No Reported Reaction Additional Past Anesthesia/Blood Transfusion Reaction / Comment(s): Pt received blood in 1967 without reaction. Date of Last Stent Placement:: 12/2017 Past Psychological History: Bipolar, Depression Smoking Status: Never smoker Past Alcohol Use History: None Reported Past Drug Use History: None Reported - Past Family History Mother Family Medical History: Liver Disease Additional Family Medical History / Comment(s): Mother was an alcoholic. She of cirrhosis of the liver at age 60yrs. Father Family Medical History: Cancer, Coronary Artery Disease (CAD), Myocardial Infarction (ME) Additional Family Medical History / Comment(s): SKIN CA. Father of a ME at age 65 yrs. Brother(s) Family Medical History: Cancer Additional Family Medical History / Comment(s): LEUKEMIA, LYMPH NODE CA AND MULTIPLE MYELOMA. General Exam - General Exam Comments Initial Comments: GENERAL: The patient is well nourished and well hydrated. VITAL SIGNS: Heart rate, blood pressure, respiratory rate reviewed as recorded in nurse's notes. EYES: Pupils are round and reactive. Extraocular movements are intact. No conjunctival / lid redness or swelling. ENT: No external evidence of injury, swelling, or ecchymosis. Airway is patent. Throat is clear. NECK: Nontender. No swelling or evidence of injury. No subcutaneous emphysema. Trachea is midline. No thyroid mass. HEART: Regular rate and rhythm. Good peripheral pulses. LUNGS/CHEST: Breath sounds clear and equal bilaterally. No rales, rhonchi, or wheezes. No ecchymosis, subcutaneous emphysema, or tenderness. ABDOMEN: Abdomen soft without tenderness. No palpable masses or organomegaly. No peritoneal signs. No abdominal wall swelling or ecchymosis. EXTREMITIES: No extremity tenderness. Normal muscle tone and function. No thoracolumbar tenderness. NEUROLOGIC: Sensation is grossly intact. Cranial nerve exam reveals face is symmetrical, tongue is midline, speech is clear. SKIN: No abrasions or ecchymosis is noted. No induration or masses noted. PSYCHIATRIC: Alert and oriented. Appropriate behavior and judgment. Limitations: no limitations Course Vital Signs 03/07/18 03/07/18 03/07/18 17:53 19:52 20:07 Temperature 98.3 F Pulse Rate 54 L 67 Respiratory 20 18 18 Rate Blood Pressure 165/96 150/84 O2 Sat by Pulse 95 94 L Oximetry 03/07/18 21:16 Temperature Pulse Rate 55 L Respiratory 18 Rate Blood Pressure 152/74 O2 Sat by Pulse 96 Oximetry Medical Decision Making - Medical Decision Making The patient is seen and examined. All diagnostics are reviewed. An IV is established and he is placed on a monitoring and evaluation advisor. The EKG shows a sinus bradycardia at a rate of [address]-T wave changes noted. The patient' s WV interval is 176, QRS duration is 92, and the QTC intervals 440. The patient's d-dimer is elevated. He did have a CT a of the chest and this does show some changes of congestive heart failure with pleural effusions as well. There is some lymphadenopathy noted in the thorax. There is no definite pulmonary embolism identified. The patient's laboratory is reviewed and does show elevation of his BNP. It is felt as though he likely does have congestive heart failure. He does receive some aspirin, Nitropaste, and Lasix. It is felt as though he would benefit from admission to the hospital. He is agreeable. Case is discussed with Dr. Chakraborty and he is agreeable with admission. - Lab Data Result diagrams: 03/07/18 19:59 03/07/18 19:59 Lab Results 03/07/18 03/07/18 03/07/18 Range/Units 19:59 19:59 19:59 WBC 5.7 (3.8-10.6) k/uL RBC 4.64 (4.30-5.90) m/uL Hgb 13.2 (13.0-17.5) gm/dL Hct 40.0 (39.0-53.0) % MCV 86.2 (80.0-100.0) fL MCH 28.4 (25.0-35.0) pg MCHC 32.9 (31.0-37.0) g/dL RDW 13.7 (11.5-15.5) % Plt Count 256 (150-450) k/uL Neutrophils % 69 % Lymphocytes % 17 % Monocytes % 9 % Eosinophils % 2 % Basophils % 1 % Neutrophils # 4.0 (1.3-7.7) k/uL Lymphocytes # 1.0 (1.0-4.8) k/uL Monocytes # 0.5 (0-1.0) k/uL Eosinophils # 0.1 (0-0.7) k/uL Basophils # 0.1 (0-0.2) k/uL PT (9.0-12.0) sec INR (<1.2) APTT (22.0-30.0) sec D-Dimer (<0.60) mg/L FEU Sodium 143 (137-145) mmol/L Potassium 4.2 (3.5-5.1) mmol/L Chloride 102 (98-107) mmol/L Carbon Dioxide 26 (22-30) mmol/L Anion Gap 15 mmol/L BUN 15 (9-20) mg/dL Creatinine 0.90 (0.66-1.25) mg/dL Est GFR (CKD-EPI)AfAm >90 (>60 ml/min/1.73 sqM) Est GFR (CKD-EPI)NonAf >90 (>60 ml/min/1.73 sqM) Glucose 138 H (74-99) mg/dL Calcium 9.3 (8.4-10.2) mg/dL Total Bilirubin 0.4 (0.2-1.3) mg/dL AST 24 (17-59) U/L ALT 27 (21-72) U/L Alkaline Phosphatase 82 (38-126) U/L Total Creatine Kinase 52 L (55-170) U/L CK-MB (CK-2) 1.5 (0.0-2.4) ng/mL CK-MB (CK-2) Rel Index 2.9 Troponin I 0.027 (0.000-0.034) ng/mL NT-Pro-B Natriuret Pep pg/mL Total Protein 6.6 (6.3-8.2) g/dL Albumin 4.0 (3.5-5.0) g/dL 03/07/18 03/07/18 Range/Units 19:59 19:59 WBC (3.8-10.6) k/uL RBC (4.30-5.90) m/uL Hgb (13.0-17.5) gm/dL Hct (39.0-53.0) % MCV (80.0-100.0) fL MCH (25.0-35.0) pg MCHC (31.0-37.0) g/dL RDW (11.5-15.5) % Plt Count (150-450) k/uL Neutrophils % % Lymphocytes % % Monocytes % % Eosinophils % % Basophils % % Neutrophils # (1.3-7.7) k/uL Lymphocytes # (1.0-4.8) k/uL Monocytes # (0-1.0) k/uL Eosinophils # (0-0.7) k/uL Basophils # (0-0.2) k/uL PT 10.9 (9.0-12.0) sec INR 1.1 (<1.2) APTT 23.9 (22.0-30.0) sec D-Dimer 0.82 H (<0.60) mg/L FEU Sodium (137-145) mmol/L Potassium (3.5-5.1) mmol/L Chloride (98-107) mmol/L Carbon Dioxide (22-30) mmol/L Anion Gap mmol/L BUN (9-20) mg/dL Creatinine (0.66-1.25) mg/dL Est GFR (CKD-EPI)AfAm (>60 ml/min/1.73 sqM) Est GFR (CKD-EPI)NonAf (>60 ml/min/1.73 sqM) Glucose (74-99) mg/dL Calcium (8.4-10.2) mg/dL Total Bilirubin (0.2-1.3) mg/dL AST (17-59) U/L ALT (21-72) U/L Alkaline Phosphatase (38-126) U/L Total Creatine Kinase (55-170) U/L CK-MB (CK-2) (0.0-2.4) ng/mL CK-MB (CK-2) Rel Index Troponin I (0.000-0.034) ng/mL NT-Pro-B Natriuret Pep 1470 pg/mL Total Protein (6.3-8.2) g/dL Albumin (3.5-5.0) g/dL Disposition Clinical Impression: Dyspnea on exertion, Hypertension, S/P coronary artery stent placement, Congestive heart failure Disposition: ADMITTED IP TO THIS HOSP Condition: Fair Is patient prescribed a controlled substance at discharge?: No Referrals: Román Gutierrez DO [Primary Care Provider] - 1-2 days Time of Disposition: :44 Decision Date: 03/07/18 Decision Time: 21:44
[2018-03-07 20:17] LABS: Basophils # (A) 0.1 k/uL (0-0.2); Basophils % (A) 1 %; Eosinophils # (A) 0.1 k/uL (0-0.7); Eosinophils % (A) 2 %; HGB 13.2 gm/dL (13.0-17.5); Lymphocytes % (A) 17 %; MCH 28.4 pg (25.0-35.0); MCHC 32.9 g/dL (31.0-37.0); MCV 86.2 fL (80.0-100.0); Monocytes # (A) 0.5 k/uL (0-1.0); Monocytes % (A) 9 %; Neutrophils % (A) 69 %; Platelet Count 256 k/uL (150-450); RBC 4.64 m/uL (4.30-5.90); RDW 13.7 % (11.5-15.5); WBC 5.7 k/uL (3.8-10.6)
[2018-03-07 20:27] LABS: ALT 27 U/L (21-72); AST 24 U/L (17-59); Alkaline Phosphatase 82 U/L (38-126); Anion Gap 15 mmol/L; Blood Urea Nitrogen 15 mg/dL (9-20); Calcium 9.3 mg/dL (8.4-10.2); Carbon Dioxide 26 mmol/L (22-30); Chloride 102 mmol/L (98-107); Glucose 138 mg/dL (74-99); Potassium 4.2 mmol/L (3.5-5.1); Sodium 143 mmol/L (137-145); Total Bilirubin 0.4 mg/dL (0.2-1.3); Total Protein 6.6 g/dL (6.3-8.2)
[2018-03-07 20:39] LABS: D-Dimer 0.82 mg/L FEU (<0.60); INR 1.1 (<1.2); Partial Thromboplastin Time 23.9 sec (22.0-30.0); Prothrombin Time 10.9 sec (9.0-12.0)
[2018-03-07 20:52] LABS: Creatine Kinase MB 1.5 ng/mL (0.0-2.4); Troponin I 0.027 ng/mL (0.000-0.034)
--- NOTE | 2018-03-07 21:30 | CT ---
EXAMINATION TYPE: CT angio chest DATE OF EXAM: 03/07/2018 COMPARISON: Chest x-ray February 06, 2018 HISTORY: Dyspnea on exertion CT DLP: 434.5 mGycm. Automated Exposure Control for Dose Reduction was Utilized. CONTRAST: CTA scan of the thorax is performed with IV Contrast, patient injected with 70 mL of Isovue 370, pulm onary embolism protocol. MIP Images are created on CT scanner and reviewed. FINDINGS: LUNGS: There are tiny bilateral pleural effusions. There is adjacent increased groundglass opacity co uld reflect mild alveolar edema. There is increased interstitial markings bilaterally suggesting mild interstitial edema. No pneumothorax is present bilaterally. Mild central peribronchial wall thickeni ng is noted. No suspicious nodules or masses are identified MEDIASTINUM: There is satisfactory enhancement of the pulmonary artery and its branches, there is no CT evidence for pulmonary embolism. There is prominent bilateral hilar adenopathy. There are no defi nitive enlarged mediastinal lymph nodes No significant pericardial effusion is seen. Cardiomegaly is present. Coronary artery calcification is present which is noted marker for coronary artery disease. OTHER: There is fairly moderate fat replaced atrophy of the pancreas at level of head and more mild g eneralized atrophy noted. There is mild to moderate multilevel spurring in the thoracic spine. IMPRESSION: 1. No CT evidence for acute pulmonary embolism. 2. Correlate for CHF exacerbation as there is cardiomegaly with tiny bilateral pleural effusions and mild interstitial edema felt present. 3. Note is made of bilateral hilar adenopathy, differential includes inflammatory and infectious proc esses as well as granulomatous disease. Further clinical workup and correlation advised.
[2018-03-07] MEDS ORDERED: FUROSEMIDE 10 MG/ML 10 ML VIAL IV STA (21:40)
[2018-03-07] MEDS ORDERED: NITROGLYCERIN OINT 1 INCH/GM PACKET TOPICAL STA (21:40)
[2018-03-07] MEDS ORDERED: ASPIRIN 81 MG PO STA (21:40)
[2018-03-07] MEDS ORDERED: HYDROcodone/APAP 7.5-325MG 1 EACH TAB PO PRN (21:49)
[2018-03-07] MEDS ORDERED: NITROGLYCERIN SL TABS 0.4 MG TAB SUBLINGUAL PRN (21:49)
[2018-03-07] MEDS ORDERED: FUROSEMIDE 10 MG/ML 4 ML VIAL IV SCH (22:00)
[2018-03-07] MEDS ORDERED: NITROGLYCERIN OINT 1 INCH/GM PACKET TOPICAL SCH (22:00)
[2018-03-07] MEDS: ENOXAPARIN 40 MG/0.4 ML SYRINGE SQ SCH (22:12)
[2018-03-07] MEDS ORDERED: ALPRAZolam 0.25 MG TAB PO PRN (22:46)
[2018-03-07] MEDS ORDERED: LACTULOSE 20 GM/30 ML CUP PO PRN (22:46)
[2018-03-07] MEDS ORDERED: NALOXONE 0.4 MG/ML 1 ML VIAL IV PRN (22:46)
[2018-03-07] MEDS ORDERED: MELATONIN 3 MG TABLET PO PRN (22:46)
[2018-03-07] MEDS ORDERED: MAGNESIUM HYDROXIDE 2,400 MG/10 ML CUP PO PRN (22:46)
[2018-03-07] MEDS ORDERED: ACETAMINOPHEN TAB 325 MG TAB PO PRN (22:46)
[2018-03-07] MEDS ORDERED: CALCIUM CARBONATE 500 MG CHEWABLE PO PRN (22:46)
[2018-03-07] MEDS ORDERED: ONDANSETRON 4 MG/2 ML VIAL IVP PRN (22:46)
[2018-03-08] MEDS ORDERED: TEMAZEPAM 15 MG CAP PO ONE (00:45)
[2018-03-08 02:13] LABS: Creatine Kinase MB 1.1 ng/mL (0.0-2.4); Troponin I 0.031 ng/mL (0.000-0.034)
[2018-03-08] MEDS: FUROSEMIDE 10 MG/ML 4 ML VIAL IV SCH ×2 (06:22→17:32)
[2018-03-08] MEDS: QUEtiapine 25 MG TAB PO SCH ×2 (08:50→21:29)
[2018-03-08] MEDS: NITROGLYCERIN OINT 1 INCH/GM PACKET TOPICAL SCH ×2 (08:50→12:41)
[2018-03-08] MEDS: ASPIRIN 325 MG TAB PO SCH (08:50)
[2018-03-08] MEDS: CLOPIDOGREL 75 MG TAB PO SCH (08:50)
[2018-03-08] MEDS: DONEPEZIL 10 MG TAB PO SCH ×2 (08:50→21:29)
[2018-03-08] MEDS: lamoTRIgine 100 MG TAB PO SCH ×2 (08:51→21:30)
[2018-03-08] MEDS: buPROPion XL 300 MG TAB.ER.24H PO SCH (08:52)
[2018-03-08] MEDS: DOXAZOSIN 4 MG TAB PO SCH ×2 (08:52→21:29)
[2018-03-08] MEDS: SERTRALINE 50 MG TAB PO SCH (08:52)
[2018-03-08] MEDS: PRIMIDONE 50 MG TAB PO SCH ×2 (08:52→21:30)
[2018-03-08] MEDS: LISINOPRIL 20 MG TAB PO SCH (08:53)
[2018-03-08] MEDS: MEMANTINE 5 MG TAB PO SCH ×2 (08:53→21:29)
[2018-03-08] MEDS: NADOLOL 20 MG TAB PO SCH (08:53)
[2018-03-08] MEDS: ENOXAPARIN 40 MG/0.4 ML SYRINGE SQ SCH (09:53)
[2018-03-08 09:54] LABS: Creatine Kinase MB 0.9 ng/mL (0.0-2.4); Troponin I 0.03 ng/mL (0.000-0.034)
--- NOTE | 2018-03-08 10:27 | ECHOF ---
Referral Reason:Heart Failure MEASUREMENTS -------- HEIGHT: 182.9 cm WEIGHT: 97.1 kg BP: 110/69 IVSd: 1.6 cm (0.6 - 1.1) LVIDd: 3.6 cm (3.9 - 5.3) LVPWd: 1.6 cm (0.6 - 1.1) IVSs: 1.6 cm LVIDs: 1.9 cm LVPWs: 1.7 cm LAESV Index (A-L): 20.87 ml/m Ao Diam: 4.1 cm (2.0 - 3.7) AV Cusp: 1.7 cm (1.5 - 2.6) LA Diam: 3.9 cm (2.7 - 3.8) MV EXCURSION: 32.820 mm (> 18.000) MV EF SLOPE: 348 mm/s (70 - 150) EPSS: 1.2 cm MV E Tan: 0.55 m/s MV DecT: 209 ms MV A Tan: 0.81 m/s MV E/A Ratio: 0.69 RAP: 5.00 mmHg RVSP: 13.89 mmHg FINDINGS -------- Sinus rhythm. This was a technically good study. The left ventricular size is normal. There is moderate concentric left ventricular hypertrophy. O verall left ventricular systolic function is normal with, an EF between 55 - 60 %. The right ventricle is normal in size and function. The left atrium is normal in size. The right atrium is normal in size. Aortic valve is trileaflet and is mildly thickened. The mitral valve leaflets are mildly thickened. There is trace mitral regurgitation. Trace tricuspid regurgitation present. The right ventricular systolic pressure, as measured by Dopp ler, is 13.89mmHg. Pulmonic valve appears structurally normal. The aortic root size is normal. The pericardium is normal. CONCLUSIONS -------- 1. Sinus rhythm. 2. This was a technically good study. 3. The left ventricular size is normal. 4. There is moderate concentric left ventricular hypertrophy. 5. Overall left ventricular systolic function is normal with, an EF between 55 - 60 %. 6. The right ventricle is normal in size and function. 7. The left atrium is normal in size. 8. The right atrium is normal in size. 9. Aortic valve is trileaflet and is mildly thickened. 10. The mitral valve leaflets are mildly thickened. 11. There is trace mitral regurgitation. 12. Trace tricuspid regurgitation present. 13. The right ventricular systolic pressure, as measured by Doppler, is 13.89mmHg. 14. Pulmonic valve appears structurally normal. 15. The aortic root size is normal. 16. The pericardium is normal. NEWS CAMERAMAN: Vicky Flores RDCS
--- NOTE | 2018-03-08 12:43 | P.CRDCN ---
History of Present Illness Consult date: 03/08/18 Requesting physician: Pierce Chakraborty Reason for Consult (text): CHF Chief complaint: shortness of breath History of present illness: This is a pleasant 62-year-old gentleman with a history of coronary artery disease, status post 2 vessel stenting in December of this year, LAD stent a few years back that was patent on last heart catheterization, hypertension, hyperlipidemia, and dementia. He follows with Dr. Mireles in the office. Presented to the hospital after being seen by his primary care physician for complaints of progressively worsening shortness of breath on exertion. He was found to have a low oxygen saturation with activity in the office apparently dropping down to 83% on room air. Was sent here for further evaluation with a computed tomography scan of the chest and to be evaluated in the emergency department. CT of the chest was negative for pulmonary embolism however did show findings suggestive of congestive heart failure with tiny bilateral pleural effusions and mild interstitial edema. NT proBNP was mildly elevated at 1470. Troponins came in to be negative 3. Renal function is normal with a BUN of 15 and creatinine of 0.9. He's been started on Lasix 40 mg IV push every 12 hours and has been diuresing well. He feels his breathing is somewhat improved he is laying flat in bed without any obvious difficulty breathing. He was up walking in the halls without any difficulty. He denies having any complaints of chest discomfort, palpitations, dizziness, or syncope. He has noticed a weight gain of about 15 pounds over the last couple of months and has had noticed some abdominal distention without any peripheral edema.. Past Medical History Past Medical History: Coronary Artery Disease (CAD), Chest Pain / Angina, Dementia, GERD/Reflux, Hyperlipidemia, Hypertension, Myocardial Infarction (NM) , Neurologic Disorder, Pneumonia, Prostate Disorder, Renal Disease, Skin Disorder, Sleep Apnea/CPAP/BIPAP Additional Past Medical History / Comment(s): early parkinson's with essential tremors, R nephrolithiasis with surgery, EDITH with no CPAP, Irritable Bowel Syndrome diarrhea off and on, pneumonia/bronchitis, BPH, blood in stool-EGD/ colonoscopy were normal, past hiatal hernia(sx), past falls. Last Myocardial Infarction Date:: 06/09/13 History of Any Multi-Drug Resistant Organisms: None Reported Past Surgical History: Heart Catheterization, Heart Catheterization With Stent, Hernia Repair Additional Past Surgical History / Comment(s): 05/2013 stent to LAD and then a cardiac cath which showed stent patent, Recent R kidney stone removal, 03/19/15 Laparoscopic Elizabeth fundlaplication. SKIN GRAFTS CHEST & BACK FROM [place] AT 13 YRS OLD., COLONOSCOPY. EGD, L lazy eye surgery as toddler. Past Anesthesia/Blood Transfusion Reactions: No Reported Reaction Additional Past Anesthesia/Blood Transfusion Reaction / Comment(s): Pt received blood in 1967 without reaction. Date of Last Stent Placement:: 12/2017 Past Psychological History: Bipolar, Depression Additional Psychological History / Comment(s): Pt lives with his . He has depression but states medication for this is working. He is normally independent. Smoking Status: Never smoker Past Alcohol Use History: None Reported Additional Past Alcohol Use History / Comment(s): Pt quit drinking alcohol in 2004( drank almost on daily basis) Past Drug Use History: None Reported - Past Family History Mother Family Medical History: Liver Disease Additional Family Medical History / Comment(s): Mother was an alcoholic. She of cirrhosis of the liver at age 60yrs. Father Family Medical History: Cancer, Coronary Artery Disease (CAD), Myocardial Infarction (NM) Additional Family Medical History / Comment(s): SKIN CA. Father of a NM at age 65 yrs. Brother(s) Family Medical History: Cancer Additional Family Medical History / Comment(s): LEUKEMIA, LYMPH NODE CA AND MULTIPLE MYELOMA. Medications and Allergies Home Medications Medication Instructions Recorded Confirmed Type Nadolol 40 mg PO QAM 10/07/14 03/07/18 History Nitroglycerin Sl Tabs [Nitrostat] 0.4 mg SUBLINGUAL Q5M PRN 10/07/14 03/07/18 History buPROPion HCL [Wellbutrin XL] 300 mg PO QAM 10/07/14 03/07/18 History Doxazosin [Cardura] 4 mg PO BID 03/03/15 03/07/18 History lamoTRIgine 150 mg PO BID 03/03/15 03/07/18 History Donepezil [Aricept] 10 mg PO BID 12/20/17 03/07/18 History Hydrocodone/Acetaminophen [[place] 1 tab PO Q6HR PRN 12/20/17 03/07/18 History 7.5-325] Memantine HCl [Namenda] 5 mg PO BID 12/20/17 03/07/18 History Pramipexole Di-HCl [Mirapex] 1 mg PO HS 12/20/17 03/07/18 History Primidone [Mysoline] 100 mg PO BID 12/20/17 03/07/18 History QUEtiapine FUMARATE [SEROquel] 25 mg PO BID 12/20/17 03/07/18 History Sertraline [Zoloft] 150 mg PO DAILY 12/20/17 03/07/18 History Aspirin 81 mg PO DAILY #30 chew 12/22/17 03/07/18 Rx Clopidogrel [Plavix] 75 mg PO DAILY #30 tab 12/24/17 03/07/18 Rx Lisinopril [Prinivil] 20 mg PO DAILY #30 tablet 12/24/17 03/07/18 Rx Pravastatin Sodium [Pravachol] 40 mg PO HS #30 tab 12/24/17 03/07/18 Rx Eszopiclone [Lunesta] 2 mg PO HS 03/07/18 03/07/18 History Allergies Allergy/AdvReac Type Severity Reaction Status Date / Time No Known Allergies Allergy Verified 03/08/18 00:43 Physical Exam Vitals: Vital Signs Temp Pulse Pulse Resp BP BP Pulse Ox 03/08/18 11:00 97.4 F L 54 L 16 127/75 97 03/08/18 10:35 92 L 03/08/18 08:50 18 03/08/18 08:14 92 L 03/08/18 08:00 18 90 L 03/08/18 07:42 97.1 F L 58 L 17 138/86 93 L 03/08/18 04:00 97.8 F 61 16 110/69 93 L 03/08/18 00:20 98 F 55 L 18 106/58 98 03/07/18 22:46 70 18 146/82 93 L 03/07/18 21:55 56 L 18 149/81 95 03/07/18 21:16 55 L 18 152/74 96 03/07/18 20:07 67 18 150/84 94 L 03/07/18 19:52 18 03/07/18 17:53 98.3 F 54 L 20 165/96 95 Intake and Output 04/18/18 04/19/18 04/19/18 22:59 06:59 14:59 Intake Total 100 660 Output Total 200 Balance -100 660 Intake: Oral 100 660 Output: Urine 200 Other: Voiding Method Toilet Toilet # Voids 1 1 Weight 99.337 kg 97.2 kg PHYSICAL EXAMINATION: HEENT: Head is atraumatic, normocephalic. Pupils equal, round. Neck is supple. There is no elevated jugular venous pressure. HEART EXAMINATION: Heart sounds regular, S1 and S2 normal. No murmur or gallop heard. CHEST EXAMINATION: Lungs reveal crackles at bilateral bases. No chest wall tenderness is noted on palpation or with deep breathing. ABDOMEN: Soft, nontender, mild distention. Bowel sounds are heard. No organomegaly noted. EXTREMITIES: 2+ peripheral pulses with no evidence of peripheral edema and no calf tenderness noted. NEUROLOGIC patient is awake, alert and oriented x3. . Results 03/07/18 19:59 03/07/18 19:59 Cardiac Enzymes 03/07/18 03/07/18 03/08/18 Range/Units 19:59 19:59 01:29 AST 24 (17-59) U/L CK-MB (CK-2) 1.5 1.1 (0.0-2.4) ng/mL Troponin I 0.027 0.031 (0.000-0.034) ng/mL 03/08/18 Range/Units 08:24 AST (17-59) U/L CK-MB (CK-2) 0.9 (0.0-2.4) ng/mL Troponin I 0.030 (0.000-0.034) ng/mL Coagulation 03/07/18 Range/Units 19:59 PT 10.9 (9.0-12.0) sec APTT 23.9 (22.0-30.0) sec CBC 03/07/18 Range/Units 19:59 WBC 5.7 (3.8-10.6) k/uL RBC 4.64 (4.30-5.90) m/uL Hgb 13.2 (13.0-17.5) gm/dL Hct 40.0 (39.0-53.0) % Plt Count 256 (150-450) k/uL Comprehensive Metabolic Panel 03/07/18 Range/Units 19:59 Sodium 143 (137-145) mmol/L Potassium 4.2 (3.5-5.1) mmol/L Chloride 102 (98-107) mmol/L Carbon Dioxide 26 (22-30) mmol/L BUN 15 (9-20) mg/dL Creatinine 0.90 (0.66-1.25) mg/dL Glucose 138 H (74-99) mg/dL Calcium 9.3 (8.4-10.2) mg/dL AST 24 (17-59) U/L ALT 27 (21-72) U/L Alkaline Phosphatase 82 (38-126) U/L Total Protein 6.6 (6.3-8.2) g/dL Albumin 4.0 (3.5-5.0) g/dL Current Medications Generic Name Dose Route Start Last Admin Trade Name Freq PRN Reason Stop Dose Admin Acetaminophen 650 mg 03/07/18 22:46 Tylenol Tab PO Q6HR PRN Mild Pain or Fever > 100.5 Hydrocodone Bitart/Acetaminophen 1 each 03/07/18 21:49 [place] 7.5-325 PO Q6HR PRN Moderate Pain Alprazolam 0.25 mg 03/07/18 22:46 Xanax PO Q6HR PRN Anxiety Aspirin 325 mg 03/08/18 09:00 03/08/18 08:50 Aspirin PO 325 mg DAILY DELORES Administration Bupropion HCl 300 mg 03/08/18 09:00 03/08/18 08:52 Wellbutrin Xl PO 300 mg QAM DELORES Administration Calcium Carbonate/Glycine 1,000 mg 03/07/18 22:46 Tums PO Q4HR PRN Dyspepsia Clopidogrel Bisulfate 75 mg 03/08/18 09:00 03/08/18 08:50 Plavix PO 75 mg DAILY DELORES Administration Donepezil HCl 10 mg 03/08/18 09:00 03/08/18 08:50 Aricept PO 10 mg BID [facility]ORES Administration Doxazosin Mesylate 4 mg 03/08/18 09:00 03/08/18 08:52 Cardura PO 4 mg BID DELORES Administration Enoxaparin Sodium 40 mg 03/07/18 22:00 03/08/18 09:53 Lovenox SQ 40 mg DAILY [facility]ORES Administration Furosemide 40 mg 03/08/18 06:00 03/08/18 06:22 Lasix IV 40 mg Q12H DELORES Administration Lactulose 20 gm 03/07/18 22:46 Cephulac PO DAILY PRN Constipation Lamotrigine 150 mg 03/08/18 09:00 03/08/18 08:51 Lamictal PO 150 mg BID [facility] Administration Lisinopril 20 mg 03/08/18 09:00 03/08/18 08:53 Zestril PO 20 mg DAILY [facility]OR[facility] Administration Memantine 5 mg 03/08/18 09:00 03/08/18 08:53 Namenda PO 5 mg BID [facility] Administration Miscellaneous Information 1 each 03/07/18 19:53 03/07/18 20:06 Rx Info: Iv Contrast Was Given MISCELLANE 03/09/18 19:53 1 each DAILY PRN Administration Per Protocol Nadolol 40 mg 03/08/18 09:00 03/08/18 08:53 Corgard PO 40 mg QAM [facility] Administration Naloxone HCl 0.2 mg 03/07/18 22:46 Narcan IV Q2M PRN Opioid Reversal Nitroglycerin 0.4 mg 03/07/18 21:49 Nitrostat SUBLINGUAL Q5M PRN Angina Nitroglycerin 1 inch 03/08/18 09:00 03/08/18 08:50 Nitro-Bid Oint TOPICAL 1 inch QID [facility] Administration Ondansetron HCl 4 mg 03/07/18 22:46 Zofran IVP Q8HR PRN Nausea And Vomiting Pramipexole Dihydrochloride 1 mg 03/08/18 21:00 Mirapex PO HS [facility] Pravastatin Sodium 40 mg 03/08/18 21:00 Pravachol PO HS [facility] Primidone 100 mg 03/08/18 09:00 03/08/18 08:52 Mysoline PO 100 mg BID [facility] Administration Quetiapine Fumarate 25 mg 03/08/18 09:00 03/08/18 08:50 Seroquel PO 25 mg BID [facility] Administration Sertraline HCl 150 mg 03/08/18 09:00 03/08/18 08:52 Zoloft PO 150 mg DAILY [facility] Administration Temazepam 15 mg 03/08/18 21:00 Restoril PO HS [facility] Intake and Output 03/07/18 03/08/18 03/08/18 22:59 06:59 14:59 Intake Total 100 660 Output Total 200 Balance -100 660 Intake: Oral 100 660 Output: Urine 200 Other: Voiding Method Toilet Toilet # Voids 1 1 Weight 99.337 kg 97.2 kg 03/07/18 19:59 03/07/18 19:59 Assessment and Plan Assessment: #1 acute diastolic congestive heart failure with an ejection fraction of 55-60% #2 CAD with most recent stenting to the RCA and circumflex in December 2017 #3 hypertension #4 hyperlipidemia #5 dementia Plan: From cardiology's perspective, medications were reviewed and will continue the same. We will continue IV Lasix at this time and likely transition to by mouth Lasix tomorrow morning. We will continue to follow the patient provide further recommendations accordingly. [employer] note has been reviewed, I agree with a documented findings and plan of care. Patient was seen and examined.
--- NOTE | 2018-03-08 12:51 | P.PN ---
Progress Note - Text This is an addendum to the dictated cardiology consultation. The patient has a known history of CAD status post multivessel stenting who presented with symptoms progressive dyspnea. He denies any significant anginal pain, he has mild cough but no fever or wheezing. He has chronic dyspnea on exertion for the last 2 months is much worse recently. His physical examination shows clear lungs with no significant peripheral edema and he is in sinus mechanism. His echocardiogram showed a normal systolic function and he had minimal elevation of his NT proBNP The patient presents with mild CHF with diastolic dysfunction. We will continue IV diuretics for 24 hours and if he is stable I would expect he should be able to be discharged home tomorrow. Thank you for this consult we will follow with you.
[2018-03-08 14:02] VITALS: BMI 27.5
--- NOTE | 2018-03-08 16:40 | HP ---
HISTORY AND PHYSICAL DATE OF SERVICE: 03/08/18. PRESENTING COMPLAINT: Short of breath. HISTORY OF PRESENTING COMPLAINT: This is a 62-year-old patient who follows with Dr. Gutierrez. The patient's chronic stable medical conditions include coronary artery disease, GERD, hypertension, hyperlipidemia, BPH, obstructive sleep apnea, early Parkinson disease, irritable bowel syndrome, BPH. The patient had a stenting done in December of this year and then started feeling short of breath after that. He did have a stress test that was negative. In January of this year did have a stress test that was negative. The patient continues to feel short of breath with exertion. Denies any edema, but does need to use 2 pillows at night. His orthopnea has been positive. The patient has noted abdominal bloating. Denies any cough. No sputum. No fever. PE was ruled out. When he came in, patient did receive IV Lasix to which he feels a bit better. Denies any chest pain otherwise. REVIEW OF SYSTEMS: CONSTITUTIONAL: Tired. HEENT: None. RESPIRATORY: As above. CARDIOVASCULAR: As above. GASTROINTESTINAL: Some heartburn. GENITOURINARY: Some slow stream. MUSCULOSKELETAL: Some arthritic pain in joints. DERMATOLOGICAL: None. HEMATOLOGIC: None. LYMPHATIC: None. PSYCHIATRY: None. NEUROLOGICAL: None. PAST MEDICAL HISTORY: Coronary artery disease with stent, GERD, hypertension, hyperlipidemia, BPH, early Parkinson disease with tremor, right kidney stones, obstructive sleep apnea does not use CPAP, irritable bowel syndrome, BPH. PAST SURGICAL HISTORY: Cardiac cath with stent, had right kidney stone removed, laparoscopic Elizabeth fundoplication, lazy left eye surgery. PSYCH HISTORY: Bipolar. SOCIAL HISTORY: . Stopped drinking alcohol in 2004. No smoking. FAMILY HISTORY: Skin cancer. Father of a heart attack at age of 65. HOME MEDICATIONS: 1. Mirapex 1 mg q.h.s. 2. Nitrostat 0.4 sublingual q.5h p.r.n. 3. Nadolol 40 mg p.o. daily. 4. Namenda 5 mg b.i.d. 5. Prinivil 20 mg p.o. daily. 6. [place] 7.5 one tab q.6h p.r.n. 7. Cardura 4 mg p.o. b.i.d. 8. Aricept 10 mg p.o. b.i.d. 9. Plavix 75 mg p.o. daily. 10.Aspirin 81 mg p.o. daily. 11.Lamictal 150 mg p.o. b.i.d. 12.Wellbutrin XL 10 mg p.o. daily. 13.Zoloft 150 mg p.o. daily. 14.Seroquel 25 p.o. b.i.d. 15.Mysoline 100 mg p.o. b.i.d. 16.Pravachol 40 mg q.h.s. 17.Lunesta 2 mg q.h.s. ALLERGIES: None. PHYSICAL EXAMINATION: VITAL SIGNS ON PRESENTATION: Temperature 98.3, pulse 54, respirations 20, blood pressure 165/96, pulse ox 95% room air. GENERAL APPEARANCE: Average built sitting up not in distress. EYES: Pupils equal. Conjunctivae normal. HEENT: External nose and ears normal. Oral cavity normal. NECK: JVD possibly raised. Mass not palpable. RESPIRATORY: Effort normal. Lungs, questionable basal crackles. CARDIOVASCULAR: First and second sounds, no edema. ABDOMEN: Distended, soft. Liver and spleen not palpable. LYMPHATIC: No lymph node palpable in neck and axillae. PSYCHIATRY: Alert and oriented x3. Mood and affect normal. NEUROLOGICAL: Pupils equal. Cranial nerves grossly intact. Power and sensation grossly intact. INVESTIGATIONS: White count 5.7, hemoglobin 13.2, potassium 4.2, BUN and creatinine are normal. Troponin 0.027. ProBNP 1470. Chest CTA negative for PE, suggestive for CHF. 2D echocardiogram shows moderate concentric left ventricular hypertrophy. Ejection fraction 55-60%. ASSESSMENT: 1. Acute on chronic congestive heart failure exacerbation from diastolic dysfunction. Ejection fraction 55-60% from underlying coronary artery disease. 2. Coronary artery disease with prior history of stent. 3. Gastroesophageal reflux disease. 4. Essential hypertension. 5. Hyperlipidemia. 6. Benign prostatic hypertrophy. 7. Irritable bowel syndrome. PLAN: Patient is started on IV Lasix. Home medications are resumed. Given his abnormal CT chest and some lymphadenopathy, we will have the patient follow up as an outpatient with Pulmonary. Care was discussed with the patient. Keep a close eye on the electrolytes. MMODL / IJN: [id number] /
[2018-03-08] MEDS ORDERED: TEMAZEPAM 15 MG CAP PO SCH (21:00)
[2018-03-08] MEDS: PRAVASTATIN SODIUM 40 MG TAB PO SCH (21:29)
[2018-03-08] MEDS: PRAMIPEXOLE 1 MG TAB PO SCH (21:30)
[2018-03-08] MEDS: ZOLPIDEM 5 MG TAB PO PRN (23:00)
[2018-03-09] MEDS: FUROSEMIDE 10 MG/ML 4 ML VIAL IV SCH (06:15)
[2018-03-09 06:54] LABS: Calcium 9.3 mg/dL (8.4-10.2); Potassium 3.7 mmol/L (3.5-5.1)
[2018-03-09] MEDS: NADOLOL 20 MG TAB PO SCH (09:25)
[2018-03-09] MEDS: CLOPIDOGREL 75 MG TAB PO SCH (09:25)
[2018-03-09] MEDS: DONEPEZIL 10 MG TAB PO SCH ×2 (09:25→20:56)
[2018-03-09] MEDS: ENOXAPARIN 40 MG/0.4 ML SYRINGE SQ SCH (09:25)
[2018-03-09] MEDS: PRIMIDONE 50 MG TAB PO SCH ×2 (09:25→20:56)
[2018-03-09] MEDS: ASPIRIN 325 MG TAB PO SCH (09:25)
[2018-03-09] MEDS: buPROPion XL 300 MG TAB.ER.24H PO SCH (09:25)
[2018-03-09] MEDS: lamoTRIgine 100 MG TAB PO SCH ×2 (09:26→20:55)
[2018-03-09] MEDS: QUEtiapine 25 MG TAB PO SCH ×2 (09:26→20:56)
[2018-03-09] MEDS: DOXAZOSIN 4 MG TAB PO SCH ×2 (09:26→20:56)
[2018-03-09] MEDS: LISINOPRIL 20 MG TAB PO SCH (09:26)
[2018-03-09] MEDS: SERTRALINE 50 MG TAB PO SCH (09:26)
[2018-03-09] MEDS: MEMANTINE 5 MG TAB PO SCH ×2 (09:26→20:56)
--- NOTE | 2018-03-09 15:25 | P.PN ---
Subjective Progress Note Date: 03/09/18 Principal diagnosis: acute diastolic heart failure This is a pleasant 62-year-old gentleman with a history of coronary artery disease, status post 2 vessel stenting in December of this year, LAD stent a few years back that was patent on last heart catheterization, hypertension, hyperlipidemia, and dementia. He follows with Dr. Mireles in the office. Presented to the hospital after being seen by his primary care physician for complaints of progressively worsening shortness of breath on exertion. He was found to have a low oxygen saturation with activity in the office apparently dropping down to 83% on room air. Was sent here for further evaluation with a computed tomography scan of the chest and to be evaluated in the emergency department. CT of the chest was negative for pulmonary embolism however did show findings suggestive of congestive heart failure with tiny bilateral pleural effusions and mild interstitial edema. NT proBNP was mildly elevated at 1470. Troponins came in to be negative 3. Renal function is normal with a BUN of 15 and creatinine of 0.9. He's been started on Lasix 40 mg IV push every 12 hours and has been diuresing well. He feels his breathing is somewhat improved he is laying flat in bed without any obvious difficulty breathing. He was up walking in the halls without any difficulty. He denies having any complaints of chest discomfort, palpitations, dizziness, or syncope. He has noticed a weight gain of about 15 pounds over the last couple of months and has had noticed some abdominal distention without any peripheral edema. 03/09/18 - patient was seen and examined today. He is feeling quite a bit better. He's been up ambulating without difficulty in breathing. Upon examination he is laying flat in bed without any shortness of breath or difficulty breathing or distress. He has diuresed well on IV Lasix with close to 2 kg weight lose. Laboratory values reviewed and showed a potassium of 3.7, BUN 22, creatinine 1.05. Objective - Vital Signs Vital signs: Vital Signs Temp 97.9 F 03/09/18 09:24 Pulse 56 L 03/09/18 12:00 Resp 16 03/09/18 12:00 BP 124/72 03/09/18 12:00 Pulse Ox 91 L 03/09/18 12:00 Intake & Output 03/08/18 03/09/18 03/09/18 18:59 06:59 18:59 Intake Total 660 360 Balance 660 360 Weight 97.2 kg 95.9 kg Intake: Oral 660 360 Other: Voiding Method Toilet Toilet Toilet # Voids 2 1 2 - Exam PHYSICAL EXAMINATION: HEENT: Head is atraumatic, normocephalic. Pupils equal, round. Neck is supple. There is no elevated jugular venous pressure. HEART EXAMINATION: Heart sounds regular, S1 and S2 normal. No murmur or gallop heard. CHEST EXAMINATION: Lungs are clear to auscultation and precussion. No chest wall tenderness is noted on palpation or with deep breathing. ABDOMEN: Soft, nontender. Bowel sounds are heard. No organomegaly noted. EXTREMITIES: 2+ peripheral pulses with no evidence of peripheral edema and no calf tenderness noted. NEUROLOGIC patient is awake, alert and oriented x3. . - Labs CBC & Chem 7: 03/07/18 19:59 03/09/18 06:17 Labs: Abnormal Lab Results - Last 24 Hours (Table) 03/09/18 Range/Units 06:17 BUN 22 H (9-20) mg/dL Glucose 137 H (74-99) mg/dL Microbiology - Last 24 Hours (Table) 03/07/18 19:59 Blood Culture - Preliminary Blood No Growth after 24 hours Assessment and Plan Assessment: #1 acute diastolic congestive heart failure with an ejection fraction of 55-60% #2 CAD with most recent stenting to the RCA and circumflex in December 2017 #3 hypertension #4 hyperlipidemia #5 dementia Plan: From cardiology's perspective, medications were reviewed, we will stop IV Lasix and transition the patient to by mouth Lasix. The patient was encouraged to increase his activity. We anticipate the patient will be discharged in the next 24-48 hours. We will continue to follow the patient provide further recommendations accordingly. CELEBRITY MANAGER note has been reviewed, I agree with a documented findings and plan of care. Patient was seen and examined.
--- NOTE | 2018-03-09 17:17 | PN ---
PROGRESS NOTE DATE OF SERVICE: 03/09/18. PRESENTING COMPLAINT: Short of breath. INTERVAL HISTORY: Patient admitted with CHF exacerbation on IV Lasix. Breathing is getting better. Has been out of bed, did tolerate a diet. REVIEW OF SYSTEMS: Done for constitutional, cardiovascular, GI, pulmonary; relevant findings as above. CURRENT MEDICATIONS: Reviewed that include IV Lasix. PHYSICAL EXAMINATION: Temperature 96.7, pulse 60, respirations 18, blood pressure 113/65, pulse ox 98% on room air. GENERAL APPEARANCE: Sitting up, comfortable. EYES: Pupils equal. Conjunctivae normal. HEENT: External appearance of nose and ears normal. Oral cavity normal. NECK: JVD not raised. Mass not palpable. RESPIRATORY: Effort normal. Lungs improved air entry. CARDIOVASCULAR: First and second sounds, no edema. ABDOMEN: Soft, nontender. Liver and spleen not palpable. PSYCHIATRY: Alert and oriented x3. Mood and affect normal. INVESTIGATIONS: Potassium 3.7, BUN 22, creatinine 1.05. ASSESSMENT: 1. Acute on chronic congestive heart failure exacerbation from diastolic dysfunction, ejection fraction 55-60%, underlying coronary artery disease, improving. 2. Coronary artery disease with prior history of stent. 3. Gastroesophageal reflux disease. 4. Essential hypertension. 5. Hyperlipidemia. 6. Benign prostatic hypertrophy. 7. Irritable bowel syndrome. 8. Hypertensive heart disease. PLAN: Patient will be able to be switched over to oral Lasix. Encouraged the patient to ambulate. Hoping he can be discharged tomorrow. MMODL / IJN: [id number] /
[2018-03-09] MEDS: FUROSEMIDE 20 MG TAB PO SCH (17:52)
[2018-03-09] MEDS: PRAMIPEXOLE 1 MG TAB PO SCH (20:56)
[2018-03-09] MEDS: PRAVASTATIN SODIUM 40 MG TAB PO SCH (20:56)
[2018-03-09] MEDS: ZOLPIDEM 5 MG TAB PO PRN (23:00)
[2018-03-10 07:32] LABS: Anion Gap 13 mmol/L; Blood Urea Nitrogen 22 mg/dL (9-20); Calcium 9.3 mg/dL (8.4-10.2); Carbon Dioxide 29 mmol/L (22-30); Chloride 100 mmol/L (98-107); Glucose 99 mg/dL (74-99); Potassium 4.3 mmol/L (3.5-5.1); Sodium 142 mmol/L (137-145)
[2018-03-10 07:44] VITALS: PULSE 54; RESP 18
[2018-03-10] MEDS: buPROPion XL 300 MG TAB.ER.24H PO SCH (07:46)
[2018-03-10] MEDS: ASPIRIN 325 MG TAB PO SCH (07:46)
[2018-03-10] MEDS: DONEPEZIL 10 MG TAB PO SCH (07:47)
[2018-03-10] MEDS: DOXAZOSIN 4 MG TAB PO SCH (07:47)
[2018-03-10] MEDS: CLOPIDOGREL 75 MG TAB PO SCH (07:47)
[2018-03-10] MEDS: FUROSEMIDE 20 MG TAB PO SCH (07:47)
[2018-03-10] MEDS: ENOXAPARIN 40 MG/0.4 ML SYRINGE SQ SCH ×2 (07:47→07:53)
[2018-03-10] MEDS: MEMANTINE 5 MG TAB PO SCH (07:48)
[2018-03-10] MEDS: lamoTRIgine 100 MG TAB PO SCH (07:48)
[2018-03-10] MEDS: NADOLOL 20 MG TAB PO SCH (07:48)
[2018-03-10] MEDS: LISINOPRIL 20 MG TAB PO SCH (07:48)
[2018-03-10] MEDS: PRIMIDONE 50 MG TAB PO SCH (07:49)
[2018-03-10] MEDS: QUEtiapine 25 MG TAB PO SCH (07:49)
[2018-03-10] MEDS: SERTRALINE 50 MG TAB PO SCH (07:49)
[2018-03-10 11:12] VITALS: BP 122/74; TEMP 97.4
--- NOTE | 2018-03-10 13:21 | PN ---
PROGRESS NOTE Mr. Michael is a 63-year-old male who presented with symptoms of dyspnea. He is feeling much better today, ambulating without difficulty, denying any symptoms of chest pain. Denies any dizziness or palpitation. Denies any nausea. He is quite anxious to go home. He has a history of coronary artery disease, status post percutaneous revascularization in December. His left ventricular systolic function is stable. He continues to be at this time on aspirin once a day, Plavix 75 mg daily, Lasix 20 mg twice a day, lisinopril 20 mg daily, nadolol 40 mg daily and pravastatin 40 mg daily. PHYSICAL EXAMINATION: Blood pressure 122/70 with a heart rate in the 60s. LUNGS: Clear. HEART: Regular rate and rhythm. S1, S2. No S3. No rub. ABDOMEN: Soft, nontender. EXTREMITIES: No edema. LAB DATA: Lab data revealed a BUN and creatinine of 22 and 0.9, potassium 4.3. IMPRESSION: 1. Episode of congestive heart failure with diastolic dysfunction, stable. 2. Coronary artery disease. 3. Hypertension. 4. Hyperlipidemia. RECOMMENDATION: Patient will be discharged home today and followed as an outpatient. MMODL / IJN: [id number] /
--- NOTE | 2018-03-10 19:15 | DS ---
DISCHARGE SUMMARY DATE OF ADMISSION: 03/07/18. DATE OF DISCHARGE: 03/10/18. FINAL DIAGNOSES: 1. Acute on chronic congestive heart failure exacerbation from diastolic dysfunction. Ejection fraction 55-60% from underlying coronary artery disease. 2. Coronary artery disease with prior history of stent. 3. Gastroesophageal reflux disease. 4. Essential hypertension. 5. Hyperlipidemia. 6. Benign prostatic hypertrophy. 7. Irritable bowel syndrome. 8. Hypertensive heart disease. HOSPITAL COURSE: This is a patient with multiple medical problems who had a cardiac stent placed in December of this year presented with worsening short of breath, found to be in CHF. PE was ruled out. Echo showed the EF 55-60%. By the time of discharge doing much better. EXAM: Lungs are clear. Cardiovascular: 1st and 2nd sounds normal. CONSULTATION: Dr. Joshi from Cardiology. MEDICATIONS: Nadolol 40 mg p.o. daily, Nitrostat 0.4 sublingual q.5 p.r.n., Wellbutrin XL 300 mg p.o. daily, Cardura 4 mg p.o. b.i.d., Lamictal 150 mg p.o. b.i.d., Aricept 10 mg p.o. b.i.d., [place] 7.5 one tab q.6h p.r.n., Namenda 5 mg b.i.d., Mirapex 1 mg p.o. q.h.s., Mysoline 100 mg p.o. b.i.d., Seroquel 25 mg p.o. b.i.d., Zoloft 150 mg p.o. daily, aspirin 81 mg p.o. daily, Plavix 25 mg p.o. daily, Prinivil 20 mg p.o. daily, Pravachol 40 mg q.h.s., Lunesta 2 mg q.h.s., Lasix 20 mg p.o. b.i.d., potassium 10 mEq p.o. daily. Follow with Dr. Gutierrez on March 19, 2018; Dr. White on March 20, 2018, Dr. Sp Gibbons on March 28, 2018. BMP in 3 days. MMODL / IJN: [id number] /
== END 2018-03-10 12:59 | disposition home or self-care (01) | DRG 293 ==
LOC: EC 17:18 → 6SEL 21:47
PROVIDERS: ADMIT Hospitalist; ATTEND Hospitalist
DX: I11.0 Hypertensive heart disease with heart failure (principal); G20 Parkinson's disease; F03.90 Unspecified dementia, unspecified severity, without behavioral disturbance, psychotic disturbance, mood disturbance, and anxiety; E78.5 Hyperlipidemia, unspecified; I25.10 Atherosclerotic heart disease of native coronary artery without angina pectoris; I50.33 Acute on chronic diastolic (congestive) heart failure; K21.9 Gastro-esophageal reflux disease without esophagitis; N40.0 Benign prostatic hyperplasia without lower urinary tract symptoms; G25.0 Essential tremor; F31.9 Bipolar disorder, unspecified; R00.1 Bradycardia, unspecified; G47.33 Obstructive sleep apnea (adult) (pediatric); K58.9 Irritable bowel syndrome, unspecified; R59.1 Generalized enlarged lymph nodes; I25.2 Old myocardial infarction; Z79.82 Long term (current) use of aspirin; Z79.02 Long term (current) use of antithrombotics/antiplatelets; Z79.899 Other long term (current) drug therapy; Z87.442 Personal history of urinary calculi; Z95.5 Presence of coronary angioplasty implant and graft; Z87.01 Personal history of pneumonia (recurrent); Z91.81 History of falling; Z98.890 Other specified postprocedural states; Z81.1 Family history of alcohol abuse and dependence; Z83.79 Family history of other diseases of the digestive system; Z82.49 Family history of ischemic heart disease and other diseases of the circulatory system; Z80.8 Family history of malignant neoplasm of other organs or systems; Z80.6 Family history of leukemia; Z80.7 Family history of other malignant neoplasms of lymphoid, hematopoietic and related tissues
CPT/HCPCS: 36415; 71275; 80048; 80053; 82550; 82553; 83880; 84484; 85025; 85379; 85610; 85730; 87040; 93005; 93306; 94760; 96372; 96374; 99285

== ENCOUNTER → 2018-05-01 | Outpatient (CLI) | payer MEDICARE ==
--- NOTE | 2018-05-01 08:36 | US ---
EXAMINATION TYPE: US abdomen complete DATE OF EXAM: 05/01/2018 COMPARISON: NONE CLINICAL HISTORY: R14.0 Abdominal Distension. Distension on and off for 3 years EXAM MEASUREMENTS: Liver Length: 16.9 cm Gallbladder Wall: 0.3 cm CBD: 0.5 cm Spleen: 11.8 cm Right Kidney: 12.4 x 4.5 x 6.2 cm Left Kidney: 11.2 x 4.7 x 6.2 cm barrel chest male with bowel gas limits exam Pancreas: not seen due to bowel gas Liver: limited view due to high placement within ribcage Gallbladder: wall upper limits of normal for size, otherwise wnl Evidence for sonographic Lou's sign: no CBD: wnl Spleen: wnl Right Kidney: wnl Left Kidney: wnl Upper IVC: wnl Abd Aorta: bowel gas limits exam IMPRESSION: Somewhat Limited exam demonstrates no definite acute process.
== END | disposition home or self-care (01) ==
LOC: RADUSWWP 07:46
PROVIDERS: ATTEND Family Medicine
DX: R14.0 Abdominal distension (gaseous) (principal)
CPT/HCPCS: 76700

== ENCOUNTER → 2018-05-04 | Outpatient (CLI) | payer MEDICARE ==
--- NOTE | 2018-05-04 09:47 | CT ---
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 TECHNIQUE: Axial images at 3 mm thick sections. Reconstructed images in the coronal plane and sagitt al plane are reviewed. FINDINGS: Limited CT sections are obtained the lung apices. The lung apices appear clear. CT neck: The torus tubarius and fossa of Rosenmuller are normal. Super[employer] spaces are normal. Para nasal sinuses and mastoid air cells are clear. Parotid glands appear normal and symmetrical. Submandibular glands, are normal. Parapharyngeal spac es are normal. Multiple bilateral shotty lymph nodes are present. A suspicious mass is not identifie d at the level of the left neck BB. This is approximately at the carotid bifurcation level. A suspici ous underlying mass is not identified. On post contrast images no abnormal enhancing mass is identifi ed. Atheromatous plaquing is present at bilateral carotid bifurcations without obvious significant fl ow-limiting stenosis. No suspicious enlarged lymphadenopathy in this region is evident at this time. The hypopharynx appears within normal limits. Vocal cord level appear symmetrical. Thyroid is somewhat heterogenous and small. Osseous structures are normal. IMPRESSIONS: 1. Scattered small lymph nodes present bilaterally. No suspicious abnormality identified at the level marked by the BB.
== END | disposition home or self-care (01) ==
LOC: RADCTMAIN 07:53
PROVIDERS: ATTEND Otolaryngology
DX: R59.9 Enlarged lymph nodes, unspecified (principal); D44.6 Neoplasm of uncertain behavior of carotid body
CPT/HCPCS: 70492; Q9967

== ENCOUNTER → 2018-09-07 | Outpatient (CLI) | payer MEDICARE ==
[2018-09-07 14:34] LABS: Calcium 9.7 mg/dL (8.4-10.2); Potassium 4.1 mmol/L (3.5-5.1)
== END | disposition home or self-care (01) ==
LOC: LABWHC1 12:42
PROVIDERS: ATTEND Nurse Practitioner Adult Health
DX: I10 Essential (primary) hypertension (principal)
CPT/HCPCS: 36415; 80048

== ENCOUNTER → 2018-10-17 | Outpatient (CLI) | payer MEDICARE ==
[2018-10-17 15:52] LABS: Anion Gap 5.1 mmol/L (4.00-12.00); Calcium 9.2 mg/dL (8.7-10.3); Carbon Dioxide 30.9 mmol/L (21.6-31.8); Potassium 4.2 mmol/L (3.5-5.5)
== END | disposition home or self-care (01) ==
LOC: LABWHC1 09:27
PROVIDERS: ATTEND Internal Medicine Interventional Cardiology
DX: I25.10 Atherosclerotic heart disease of native coronary artery without angina pectoris (principal)
CPT/HCPCS: 36415; 80048

== ENCOUNTER → 2018-12-31 | Outpatient (CLI) | payer MEDICARE ==
[2018-12-31 12:19] LABS: HCT 36.3 % (39.0-53.0); HGB 12.5 gm/dL (13.0-17.5); MCHC 34.3 g/dL (31.0-37.0); MCV 93.4 fL (80.0-100.0); Mean Platelet Volume 6.4; Platelet Count 242 k/uL (150-450); RBC 3.89 m/uL (4.30-5.90); WBC 6.1 k/uL (3.8-10.6)
[2018-12-31 22:02] LABS: Anion Gap 7.7 mmol/L (4.00-12.00); Calcium 9.2 mg/dL (8.7-10.3); Carbon Dioxide 28.3 mmol/L (21.6-31.8); Potassium 4.4 mmol/L (3.5-5.5)
== END ==
LOC: LABWHC1 11:07
PROVIDERS: ATTEND Internal Medicine Interventional Cardiology
DX: N18.9 Chronic kidney disease, unspecified (principal)
CPT/HCPCS: 36415; 80048; 85027

== ENCOUNTER → 2019-01-04 | Outpatient (CLI) | payer MEDICARE ==
[2019-01-04 19:13] LABS: Anion Gap 16.7 mmol/L (4.00-12.00); Calcium 9.4 mg/dL (8.7-10.3); Carbon Dioxide 25.3 mmol/L (21.6-31.8); Potassium 3.9 mmol/L (3.5-5.5)
== END ==
LOC: LABWHC1 14:07
PROVIDERS: ATTEND Internal Medicine Critical Care Medicine
DX: E86.0 Dehydration (principal); Z79.899 Other long term (current) drug therapy
CPT/HCPCS: 36415; 80048

== ENCOUNTER 2019-01-07 18:31 | Inpatient (IN) | payer MEDICARE ==
--- NOTE | 2019-01-07 20:39 | XR ---
EXAMINATION TYPE: XR chest 2V DATE OF EXAM: 01/07/2019 COMPARISON: 12/10/2018 HISTORY: Short of breath TECHNIQUE: Frontal and lateral views of the chest are obtained. FINDINGS: There is no heart failure. There is some linear density at the left lung base. The other l laura el are clear. There are no hilar masses. Mediastinum is normal. IMPRESSION: Subsegmental atelectasis at the left lung base is new compared to old exam. Normal heart .
[2019-01-07 20:50] LABS: Basophils # (A) 0.1 k/uL (0-0.2); Basophils % (A) 1 %; Eosinophils # (A) 0.4 k/uL (0-0.7); Eosinophils % (A) 6 %; HCT 36.2 % (39.0-53.0); HGB 12.3 gm/dL (13.0-17.5); Lymphocytes # (A) 1.4 k/uL (1.0-4.8); Lymphocytes % (A) 18 %; MCH 31.6 pg (25.0-35.0); MCV 92.8 fL (80.0-100.0); Monocytes # (A) 0.7 k/uL (0-1.0); Monocytes % (A) 10 %; Neutrophils # (A) 4.8 k/uL (1.3-7.7); Neutrophils % (A) 63 %; Platelet Count 263 k/uL (150-450); WBC 7.6 k/uL (3.8-10.6)
[2019-01-07 20:58] LABS: Albumin 4.3 g/dL (3.5-5.0); Calcium 9.8 mg/dL (8.4-10.2); Magnesium 2.5 mg/dL (1.6-2.3); Phosphorus 6.7 mg/dL (2.5-4.5); Potassium 3.5 mmol/L (3.5-5.1); Total Bilirubin 0.4 mg/dL (0.2-1.3); Total Protein 7.4 g/dL (6.3-8.2)
[2019-01-07] MEDS ORDERED: ACETAMINOPHEN TAB 500 MG TAB PO STA (21:53)
[2019-01-07] MEDS ORDERED: SODIUM CHLORIDE 0.9% 500 ML 500 ML IV ONE (21:53)
[2019-01-07 21:58] LABS: Appearance,Urine Clear (Clear); Bilirubin,Urine Negative (Negative); Blood,Urine Negative (Negative); Color,Urine Light Yellow; Glucose,Urine (UA) Negative (Negative); Ketones,Urine Negative (Negative); Leukocyte Esterase,Urine Negative (Negative); Nitrite,Urine Negative (Negative); Protein,Urine Negative (Negative); Specific Gravity,Urine 1.009 (1.001-1.035); Urobilinogen,Urine <2.0 mg/dL (<2.0)
--- NOTE | 2019-01-07 22:43 | US ---
EXAM: US Retroperitoneal Limited, Renal CLINICAL HISTORY: ITS.REASON US Reason: decreased renal function TECHNIQUE: Real-time ultrasound of the retroperitoneum (limited) with image documentation. COMPARISON: No relevant prior studies available. FINDINGS: Right kidney: No stones. No solid mass. No hydronephrosis. Left kidney: No stones. No solid mass. No hydronephrosis. Bladder: Bilateral ureteral jets are seen. IMPRESSION: No acute findings.
[2019-01-07] MEDS ORDERED: NALOXONE 0.4 MG/ML 1 ML VIAL IV PRN (23:40)
--- NOTE | 2019-01-07 23:40 | ED ---
General Adult HPI - General Chief complaint: Recheck/Abnormal Lab/Rx Stated complaint: sob, Dx acute kidney failure Time Seen by Provider: 01/07/19 21:27 Source: patient Mode of arrival: wheelchair Limitations: no limitations - History of Present Illness Initial comments: 63-year-old male patient presents to the emergency department today for abnormal labs. Patient states that he was called by his physician today and told to present to the emergency department due to kidney function issues. Patient states that he does have history of congestive heart failure was started on a new water pill a couple of weeks ago. States it did draw labs Monday and called today with abnormal results. Patient states that his GFR went from 50 to 14. Patient states he has been feeling generally weak and fatigued. States he has had some dizziness. He denies any chest pain, shortness of breath, or extremity swelling. Patient states he has had increase in headaches over the last week. Patient denies any recent rash, fever, chills, abdominal pain, nausea, vomiting, diarrhea, constipation, back pain, numbness, tingling, dizziness, hematuria, dysuria, urinary urgency, urinary frequency, visual changes, or any other complaints. - Related Data Home Medications Medication Instructions Recorded Confirmed Nadolol 40 mg PO QAM 10/07/14 01/07/19 buPROPion HCL [Wellbutrin XL] 300 mg PO QAM 10/07/14 01/07/19 lamoTRIgine 150 mg PO BID 03/03/15 01/07/19 Donepezil [Aricept] 10 mg PO BID 12/20/17 01/07/19 Memantine HCl [Namenda] 5 mg PO BID 12/20/17 01/07/19 Pramipexole Di-HCl [Mirapex] 1 mg PO HS 12/20/17 01/07/19 Primidone [Mysoline] 150 mg PO BID 12/20/17 01/07/19 QUEtiapine FUMARATE [SEROquel] 50 mg PO HS 12/20/17 01/07/19 Sertraline [Zoloft] 150 mg PO DAILY 12/20/17 01/07/19 Furosemide [Lasix] 80 mg PO BID 12/10/18 01/07/19 Zolpidem Tartrate [Ambien] 10 mg PO HS 12/10/18 01/07/19 Doxazosin [Cardura] 4 mg PO HS 12/12/18 01/07/19 Melatonin 10 mg PO HS 01/07/19 01/07/19 clonazePAM [KlonoPIN] 0.5 mg PO HS 01/07/19 01/07/19 Previous Rx's Medication Instructions Recorded Clopidogrel [Plavix] 75 mg PO DAILY #30 tab 12/24/17 Lisinopril [Prinivil] 20 mg PO DAILY #30 tablet 12/24/17 Pravastatin Sodium [Pravachol] 40 mg PO HS #30 tab 12/24/17 Potassium Chloride ER [K-Dur 10] 10 meq PO DAILY #30 tab 03/10/18 Allergies Allergy/AdvReac Type Severity Reaction Status Date / Time No Known Allergies Allergy Verified 01/07/19 22:09 Review of Systems ROS Statement: Those systems with pertinent positive or pertinent negative responses have been documented in the HPI. ROS Other: All systems not noted in ROS Statement are negative. Past Medical History Past Medical History: Coronary Artery Disease (CAD), Chest Pain / Angina, Heart Failure, Dementia, GERD/Reflux, Hyperlipidemia, Hypertension, Myocardial Infarction (NC), Neurologic Disorder, Pneumonia, Prostate Disorder, Renal Disease, Skin Disorder, Sleep Apnea/CPAP/BIPAP Additional Past Medical History / Comment(s): early parkinson's with essential tremors, "lewy body dementia" R nephrolithiasis with surgery, EDITH with no CPAP, Irritable Bowel Syndrome diarrhea off and on, pneumonia/bronchitis, BPH, blood in stool-EGD/colonoscopy were normal, past hiatal hernia(sx), past falls., kidney failure, Last Myocardial Infarction Date:: 06/09/13 History of Any Multi-Drug Resistant Organisms: None Reported Past Surgical History: Heart Catheterization, Heart Catheterization With Stent, Hernia Repair Additional Past Surgical History / Comment(s): 05/2013 stent to LAD and then a cardiac cath which showed stent patent, Recent R kidney stone removal, 03/19/15 Laparoscopic Elizabeth fundlaplication. SKIN GRAFTS CHEST & BACK FROM [place] AT 13 YRS OLD., COLONOSCOPY. EGD, L lazy eye surgery as toddler. Past Anesthesia/Blood Transfusion Reactions: No Reported Reaction Additional Past Anesthesia/Blood Transfusion Reaction / Comment(s): Pt received blood in 1967 without reaction. Date of Last Stent Placement:: 12/2017 Past Psychological History: Bipolar, Depression Smoking Status: Never smoker Past Alcohol Use History: None Reported Past Drug Use History: None Reported - Past Family History Mother Family Medical History: Liver Disease Additional Family Medical History / Comment(s): Mother was an alcoholic. She of cirrhosis of the liver at age 60yrs. Father Family Medical History: Cancer, Coronary Artery Disease (CAD), Myocardial Infarction (NC) Additional Family Medical History / Comment(s): SKIN CA. Father of a NC at age 65 yrs. Brother(s) Family Medical History: Cancer Additional Family Medical History / Comment(s): LEUKEMIA, LYMPH NODE CA AND MULTIPLE MYELOMA. General Exam Limitations: no limitations General appearance: alert, in no apparent distress, other (This is a well- developed, well-nourished adult male patient in no acute distress. Vital signs upon presentation are temperature 97.9F, pulse 65, respirations 18, blood pressure 115/73, pulse ox 95% on room air.) Eye exam: Present: normal appearance, PERRL, EOMI. Absent: scleral icterus, conjunctival injection, periorbital swelling ENT exam: Present: normal exam, normal oropharynx, mucous membranes moist Respiratory exam: Present: normal lung sounds bilaterally. Absent: respiratory distress, wheezes, rales, rhonchi, stridor Cardiovascular Exam: Present: regular rate, normal rhythm, normal heart sounds. Absent: systolic murmur, diastolic murmur, rubs, gallop, clicks GI/Abdominal exam: Present: soft, normal bowel sounds. Absent: distended, tenderness, guarding, rebound, rigid Extremities exam: Present: normal inspection, full ROM, normal capillary refill , other (No extremity edema). Absent: tenderness, pedal edema, joint swelling, calf tenderness Neurological exam: Present: alert, oriented X3, CN II-XII intact Psychiatric exam: Present: normal affect, normal mood Skin exam: Present: warm, dry, intact, normal color. Absent: rash Course Vital Signs 01/07/19 01/07/19 19:37 22:28 Temperature 97.9 F 97.7 F Pulse Rate 65 55 L Respiratory 18 16 Rate Blood Pressure 115/73 110/77 O2 Sat by Pulse 95 95 Oximetry Medical Decision Making - Medical Decision Making 63-year-old male patient presents to emergency department today for evaluation of abnormal labs. Labs reviewed and did reveal hemoglobin 12.3, sodium 135, chloride 93, BUN 78, creatinine 3.34, GFR 19. Patient's phosphorus 6.7 and magnesium 2.5. Patient's labs to effect acute kidney injury. US kidneys/renal/ bladder was unremarkable. We'll admit for IV hydration. We will perform gentle hydration given his history of CHF. Chest x-ray was reviewed and showed no current evidence for pulmonary edema or heart failure. Extremities are not edematous. He was given a 500 mL bolus. We started at 50 mL of normal saline per hour. We will admit to hospitalist and consult nephrology. - Lab Data Result diagrams: 01/07/19 20:34 01/07/19 20:34 Lab Results 01/07/19 01/07/19 01/07/19 Range/Units 20:34 20:34 21:47 WBC 7.6 (3.8-10.6) k/uL RBC 3.90 L (4.30-5.90) m/uL Hgb 12.3 L (13.0-17.5) gm/dL Hct 36.2 L (39.0-53.0) % MCV 92.8 (80.0-100.0) fL MCH 31.6 (25.0-35.0) pg MCHC 34.0 (31.0-37.0) g/dL RDW 14.0 (11.5-15.5) % Plt Count 263 (150-450) k/uL Neutrophils % 63 % Lymphocytes % 18 % Monocytes % 10 % Eosinophils % 6 % Basophils % 1 % Neutrophils # 4.8 (1.3-7.7) k/uL Lymphocytes # 1.4 (1.0-4.8) k/uL Monocytes # 0.7 (0-1.0) k/uL Eosinophils # 0.4 (0-0.7) k/uL Basophils # 0.1 (0-0.2) k/uL Sodium 135 L (137-145) mmol/L Potassium 3.5 (3.5-5.1) mmol/L Chloride 93 L (98-107) mmol/L Carbon Dioxide 29 (22-30) mmol/L Anion Gap 13 mmol/L BUN 78 H (9-20) mg/dL Creatinine 3.34 H (0.66-1.25) mg/dL Est GFR (CKD-EPI)AfAm 22 (>60 ml/min/1.73 sqM) Est GFR (CKD-EPI)NonAf 19 (>60 ml/min/1.73 sqM) Glucose 105 H (74-99) mg/dL Calcium 9.8 (8.4-10.2) mg/dL Phosphorus 6.7 H (2.5-4.5) mg/dL Magnesium 2.5 H (1.6-2.3) mg/dL Total Bilirubin 0.4 (0.2-1.3) mg/dL AST 22 (17-59) U/L ALT 33 (21-72) U/L Alkaline Phosphatase 79 (38-126) U/L Total Protein 7.4 (6.3-8.2) g/dL Albumin 4.3 (3.5-5.0) g/dL Urine Color Light Yellow Urine Appearance Clear (Clear) Urine pH 5.0 (5.0-8.0) Ur Specific [place] 1.009 (1.001-1.035) Urine Protein Negative (Negative) Urine Glucose (UA) Negative (Negative) Urine Ketones Negative (Negative) Urine Blood Negative (Negative) Urine Nitrite Negative (Negative) Urine Bilirubin Negative (Negative) Urine Urobilinogen <2.0 (<2.0) mg/dL Ur Leukocyte Esterase Negative (Negative) - Radiology Data Radiology results: report reviewed, image reviewed Two-view x-ray of the chest is obtained. Report was reviewed in its entirety. Impression by Dr. East shows subsegmental atelectasis at the left lung bases new compared to old exam. Normal heart. Ultrasound of the kidneys and bladder showed no acute findings. Disposition Clinical Impression: Acute kidney injury Disposition: ADMITTED IP TO THIS [facility] Condition: Serious Referrals: Román Gutierrez DO [Primary Care Provider] - 1-2 days Decision to Admit Reason: Admit from EC Decision Date: 01/07/19 Decision Time: 23:39
[2019-01-08] MEDS: ZOLPIDEM 5 MG TAB PO SCH ×2 (00:54→22:53)
[2019-01-08] MEDS: SODIUM CHLORIDE 0.9% 1,000 ML IV SCH ×2 (00:55→20:07)
[2019-01-08 09:00] LABS: Calcium 9.4 mg/dL (8.4-10.2); Potassium 3.6 mmol/L (3.5-5.1)
[2019-01-08] MEDS ORDERED: LISINOPRIL 20 MG TAB PO SCH (09:00)
[2019-01-08] MEDS: DONEPEZIL 10 MG TAB PO SCH ×2 (09:50→20:06)
[2019-01-08] MEDS: CLOPIDOGREL 75 MG TAB PO SCH (09:50)
[2019-01-08] MEDS: buPROPion XL 300 MG TAB.ER.24H PO SCH (09:50)
[2019-01-08] MEDS: lamoTRIgine 100 MG TAB PO SCH ×2 (09:50→20:05)
[2019-01-08] MEDS: NADOLOL 20 MG TAB PO SCH (09:51)
[2019-01-08] MEDS: PRIMIDONE 50 MG TAB PO SCH ×2 (09:51→20:04)
[2019-01-08] MEDS: MEMANTINE 5 MG TAB PO SCH ×2 (09:51→20:06)
[2019-01-08] MEDS: SERTRALINE 50 MG TAB PO SCH (09:51)
[2019-01-08] MEDS: POTASSIUM CHLORIDE ER 10 MEQ TAB.ER.PRT PO SCH (09:51)
[2019-01-08] MEDS ORDERED: ACETAMINOPHEN TAB 500 MG TAB PO PRN (16:23)
[2019-01-08] MEDS ORDERED: ALPRAZolam 0.25 MG TAB PO PRN (16:23)
[2019-01-08 17:12] LABS: Prothrombin Time 10.3 sec (9.0-12.0)
--- NOTE | 2019-01-08 20:03 | HP ---
HISTORY AND PHYSICAL CHIEF COMPLAINTS: Dehydration, renal injury. HISTORY OF PRESENT ILLNESS: This 63-year-old gentleman with a past medical history of CAD, CHF, dementia, GERD, hypertension, hyperlipidemia, history of myocardial infarction, history of pneumonia, history of skin disorder, history of sleep apnea, early Parkinson's, history of CAD, stent, being followed by Dr. Gutierrez in the outpatient setting, was admitted to [facility] with complaints of abnormal labs. The patient apparently saw the physician today and was asked to go home. His GFR apparently went from 50 to 14. The patient also complained of some weakness and some fatigue. The patient also nausea and diminished p.o. intake. A chest x-ray and abdominal ultrasound were done during the admission. Chest x-ray showed some atelectasis. Bladder ultrasound showed no acute findings. The creatinine was found to be 3.34, which was worsened from the baseline of 1.1. Patient apparently was taking Motrin, also. Nephrology is following the patient. Patient was placed on IV fluids. Past medical history reviewed. The patient also apparently was recently started on . REVIEW OF SYSTEMS: CARDIOVASCULAR SYSTEM: No angina, palpitations. RESPIRATORY SYSTEM: As mentioned earlier. GI: No nausea, vomiting. : No dysuria or retention. NERVOUS SYSTEM: No numbness, weakness. ALLERGY/IMMUNOLOGY: No asthma, hayfever. MUSCULOSKELETAL: As mentioned earlier. HEMATOLOGY/ONCOLOGY: No history of anemia. ENDOCRINE: As mentioned earlier. CONSTITUTIONAL: As mentioned earlier. DERMATOLOGY: Negative. RHEUMATOLOGY: Negative. PSYCHIATRY: As mentioned earlier. MEDICATIONS: Include: 1. Lamictal 150 mg p.o. b.i.d. 2. Klonopin 0.5 mg at bedtime. 3. Wellbutrin XL 300 mg each morning. 4. Ambien 10 mg at bedtime. 5. Zoloft 150 mg daily. 6. Seroquel 50 mg at bedtime. 7. Mysoline 150 mg p.o. b.i.d. 8. Pravachol 40 mg at bedtime. 9. MiraLAX 1 mg at bedtime. 10.K-Dur 10 mEq p.o. daily. 11.Nadolol 40 mg each morning. 12.Namenda 5 mg p.o. b.i.d. 13.Melatonin 10 mg at bedtime. 14.Prinivil 20 mg p.o. daily. 15.Lasix 80 mg p.o. b.i.d. 16.Cardura 4 mg at bedtime. 17.Aricept 10 mg p.o. daily. 18.Plavix 75 mg p.o. daily. ALLERGIES: NONE. FAMILY HISTORY: History of CAD, myocardial infarction, skin cancer. SOCIAL HISTORY: No history of smoking. No history of alcohol intake. PHYSICAL EXAMINATION: Patient is alert, oriented x3. Pulse 60, blood pressure 119/60, respiration 20, temperature 97.9, pulse ox 96% on room air. HEENT: Conjunctivae normal. Oral mucosa dry. NECK: No jugular venous distention. No carotid bruit. No lymph node enlargement. CARDIOVASCULAR SYSTEM: S1, S2 muffled. RESPIRATORY SYSTEM: Breath sounds diminished at the bases. No rhonchi. No crackles. ABDOMEN: Soft, non-tender. No mass palpable. No hepatosplenomegaly. LEGS: No edema. No swelling. NERVOUS SYSTEM: Higher functions as mentioned earlier. Moves all 4 limbs. No focal motor or sensory deficit. LYMPHATICS: No lymph node palpable in neck, axillae or groin. SKIN: No ulcer, rash, bleeding. JOINTS: No active deforming arthropathy. LABS: Labs at this time show WBC 7.6, hemoglobin 12.3. Sodium 135, creatinine 3.34. Magnesium is 2.5. ASSESSMENT: 1. Acute renal failure, possibly prerenal, with acute tubular necrosis, possibly medication-induced. 2. Hyponatremia. 3. Anemia, normocytic; anemia of chronic disease. 4. Coronary artery disease. 5. History of congestive heart failure. 6. Dementia. 7. Gastroesophageal reflux disease. 8. Hypertension. 9. Hyperlipidemia. 10.History of myocardial infarction. 11.History of pneumonia. 12.History of sleep apnea. 13.History of early Parkinson's. 14.History of Lewy body dementia. 15.History of right nephrolithiasis. 16.History of sleep apnea. 17.History of coronary artery disease, stent. 18.History of bipolar and depression. RECOMMENDATIONS AND DISCUSSION: In this 63-year-old gentleman who presented with multiple complex medical issues , we will monitor the patient closely, continue the current medications, continue with symptomatic treatment. Otherwise at this time I would recommend continuing with IV fluids. Monitor creatinine closely. Avoid diuretics for now. Closely follow with Nephrology. Guarded prognosis because of multiple complex medical issues. Further recommendations to follow. See orders for further details. MMODL / IJN: [id number] / MTDD
[2019-01-08] MEDS ORDERED: ZOLPIDEM 5 MG TAB PO SCH (21:00)
[2019-01-08] MEDS ORDERED: PRAVASTATIN SODIUM 40 MG TAB PO SCH (21:00)
[2019-01-08] MEDS ORDERED: clonazePAM 0.5 MG TAB PO SCH (21:00)
[2019-01-08] MEDS ORDERED: PRAMIPEXOLE 1 MG TAB PO SCH (21:00)
[2019-01-08] MEDS ORDERED: MELATONIN 5 MG TABLET PO SCH (21:00)
[2019-01-08] MEDS ORDERED: QUEtiapine 50 MG TAB PO SCH (21:00)
[2019-01-08] MEDS ORDERED: DOXAZOSIN 4 MG TAB PO SCH (21:00)
[2019-01-08] MEDS: HEPARIN SODIUM,PORCINE 5,000 UNIT/ML 1 ML VIAL SQ SCH (22:53)
--- NOTE | 2019-01-08 23:46 | CONS ---
CONSULTATION REASON FOR CONSULT: Renal failure. HISTORY OF PRESENT ILLNESS: The patient is a 63-year-old male who was admitted to the hospital with complaints of increasing weakness, unsteadiness and abnormal labs done as outpatient. Patient stated that he had issues with increasing lower extremity swelling, for which he was started on metolazone about a week ago by Cardiology. He noticed that he had voided significant amounts of urine, and over the past one week he has become increasingly weak and dizzy. He was evaluated at printed circuit designer's office and noted to be volume- depleted. Patient denies any prior history of kidney diseases. He stated that his GFR went from 50 to 14. Other labs are not available. On admission to the hospital, serum creatinine was 3.3. It is down to 2.7 now. We do have a serum creatinine of 0.9 on 12/10/2018. His serum creatinine on 01/04/2019 was 4.1. Patient states he is feeling better. He is currently maintained on IV fluids. He is voiding as well. Patient also admitted to history of use of nonsteroidal anti-inflammatory agents in the form of ibuprofen prior to admission. PAST MEDICAL HISTORY: 1. Hypertension. 2. Congestive heart failure, ejection fraction not known. 3. Dyslipidemia. 4. Coronary artery disease. 5. History of MD. 6. BPH. 7. Obstructive sleep apnea. 8. Early Parkinson's disease. 9. History of Lewy body dementia. 10.History of right kidney stones. 11.Hiatal hernia. 12.Bipolar disorder. PAST SURGICAL HISTORY: 1. Cardiac catheterization. 2. Coronary stent placement. 3. Hernia repair. 4. Right kidney stone removal. 5. Skin grafts from villareal. 6. Colonoscopy. 7. EGD. 8. Left eye surgery for lazy eye. SOCIAL HISTORY: Negative for smoking, drug abuse or alcohol abuse. MEDICATIONS: Medications prior to admission included: 1. Klonopin. 2. Melatonin. 3. Cardura. 4. Ambien. 5. Lasix. 6. Zoloft. 7. Seroquel. 8. Mirapex. 9. Namenda. 10.Aricept. 11.Prinivil. 12.Plavix. 13.Pravachol. 14.Potassium. 15.Metolazone. 16.Nadolol. 17.Wellbutrin. 18.Lamotrigine. ALLERGIES: NONE. REVIEW OF SYSTEMS: As per HPI. Other systems negative. PHYSICAL EXAMINATION: Patient is comfortable, awake, alert, oriented x3, not in any acute distress. Blood pressure is 119/68, heart rate 60 per minute. Patient is afebrile. EXAMINATION OF THE HEART: S1 and S2. EXAMINATION OF LUNGS: Bilateral breath sounds are heard. ABDOMEN: Soft, non-tender. Examination of lower extremities shows no evidence of edema. [employer] exam is grossly intact. LABS: Sodium 138, potassium 3.6, chloride 95, CO2 of 33, BUN 71, serum creatinine 2.7. Hemoglobin was 12.3. UA is completely benign. ASSESSMENT: 1. Acute kidney injury secondary to recent diuresis, currently improving. Continue to maintain patient on IV fluids. Continue to avoid nephrotoxic agents. I decreased the dose of lisinopril. We will hold the CHERELLE inhibitors today and we can resume at 5 mg daily tomorrow. Blood pressure is actually on the lower side. Therefore I will discontinue it. 2. Hypertension. Blood pressure is low. Hold off on the anti-hypertensive medications, particularly the CHERELLE inhibitors, for now. 3. History of congestive heart failure, ejection fraction not known. 4. Volume overload prior to admission as outpatient, currently improved. Patient is currently volume-depleted and receiving IV fluids. 5. Hypokalemia secondary to diuretics. We will replace. PLAN: Continue IV fluids. Continue with potassium supplementation. Repeat labs in a.m. Discontinue lisinopril. I will check an ultrasound of the kidneys as well. Thank you for this consultation. Will continue to follow the patient with you during his hospitalization. MMODL / IJN: [id number] /
[2019-01-09 07:04] VITALS: BP 105/64; PULSE 59; TEMP 98.2
[2019-01-09] MEDS ORDERED: PANTOPRAZOLE 40 MG TABLET PO SCH (07:30)
[2019-01-09 07:54] LABS: Basophils # (A) 0.1 k/uL (0-0.2); Basophils % (A) 1 %; Eosinophils # (A) 0.3 k/uL (0-0.7); Eosinophils % (A) 5 %; HCT 36.7 % (39.0-53.0); HGB 11.9 gm/dL (13.0-17.5); Lymphocytes # (A) 1.2 k/uL (1.0-4.8); Lymphocytes % (A) 20 %; MCH 31.1 pg (25.0-35.0); MCHC 32.3 g/dL (31.0-37.0); MCV 96.4 fL (80.0-100.0); Mean Platelet Volume 6.2; Monocytes # (A) 0.4 k/uL (0-1.0); Monocytes % (A) 7 %; Neutrophils # (A) 3.9 k/uL (1.3-7.7); Neutrophils % (A) 66 %; Platelet Count 250 k/uL (150-450); RBC 3.81 m/uL (4.30-5.90)
[2019-01-09 08:10] LABS: Calcium 9.6 mg/dL (8.4-10.2); Potassium 3.9 mmol/L (3.5-5.1)
[2019-01-09] MEDS: NADOLOL 20 MG TAB PO SCH (08:46)
[2019-01-09] MEDS: lamoTRIgine 100 MG TAB PO SCH (08:53)
[2019-01-09] MEDS: HEPARIN SODIUM,PORCINE 5,000 UNIT/ML 1 ML VIAL SQ SCH (08:53)
[2019-01-09] MEDS: CLOPIDOGREL 75 MG TAB PO SCH (08:53)
[2019-01-09] MEDS: buPROPion XL 300 MG TAB.ER.24H PO SCH (08:53)
[2019-01-09] MEDS: DONEPEZIL 10 MG TAB PO SCH (08:53)
[2019-01-09] MEDS: POTASSIUM CHLORIDE ER 10 MEQ TAB.ER.PRT PO SCH (08:54)
[2019-01-09] MEDS: PRIMIDONE 50 MG TAB PO SCH (08:54)
[2019-01-09] MEDS: MEMANTINE 5 MG TAB PO SCH (08:54)
[2019-01-09] MEDS: SERTRALINE 50 MG TAB PO SCH (08:55)
[2019-01-09] MEDS ORDERED: LISINOPRIL 5 MG TAB PO SCH (09:00)
[2019-01-09 09:30] VITALS: RESP 18
--- NOTE | 2019-01-09 11:49 | P.CRDCN ---
History of Present Illness History of present illness: This is a pleasant 63-year-old male past medical history significant for coronary artery disease, chronic diastolic heart failure, hypertension, dyslipidemia, obstructive sleep apnea, chronic kidney disease and former alcohol dependence. He follows in the office with Dr. Hernandez. Most recent cardiac catheterization performed 12/12/2018 revealed patent stents in the mid RCA, mid circumflex and mid LAD with severe disease involving the very distal apical LAD. He presented to the hospital with symptoms of dehydration. Laboratory data reviewed, WBC 6.0, hemoglobin 11.9, platelet's 250, sodium 140, potassium 3.9, creatinine on admission 3.34 down to 1.71 this morning, magnesium on admission 2.5. He recently saw Dr. Hernandez in the office and was complaining of weight gain and shortness of breath. At that time it was recommended that he take metazalone 2.5 mg every other day, continue Lasix 80 mg twice a day, low sodium diet and monitor kidney function and electrolytes in one week. Chest x-ray on admission revealed atelectasis at the left lung base with no overt heart failure noted. Ultrasound of the kidneys was negative. Current cardiac medications include Plavix 75 mg daily, Cardura 4 mg daily, Lasix 80 mg twice a day, Zaroxolyn 2.5 mg every other day, lisinopril 20 mg daily, nadolol 40 mg daily, potassium supplementation daily, pravastatin 40 mg daily, primidone 150 mg twice a day. He hasn't seen a consultation by nephrology and Lasix and lisinopril are currently being held and metaxalone is discontinued indefinitely. Patient was seen and examined sitting up in the chair in no acute distress. He denies symptoms of chest discomfort, dizziness or palpitations. He states that he saw Dr. Hernandez in the office he had significant lower extremity edema and over the previous week he had urinated quite significantly and the swelling in his legs has gone down completely. However he still states he feels full in the abdomen region. And he does get short of breath with mild exertion. At rest he is breathing quite comfortably completing sentences without difficulty. Most recent echocardiogram obtained November 2018 reveals preserved left ventricular systolic function with ejection fraction 50-55%. At the time of my exam: CONSTITUTIONAL: Denies fever. Denies chills. EYES: Denies blurred vision. Denies vision changes. Denies eye pain. EARS, NOSE, MOUTH & THROAT: Denies headache. Denies sore throat. Denies ear pain. CARDIOVASCULAR: Denies chest pain. Denies shortness of breath. Denies orthopnea. Denies PND. Denies palpitations. RESPIRATORY: Denies cough. GASTROINTESTINAL: Denies abdominal pain. Denies diarrhea. Denies constipation. Denies nausea. Denies vomiting. Complains of abdominal bloating. MUSCULOSKELETAL: Denies myalgias. INTEGUMENTARY: Denies pruitis. Denies rash. NEUROLOGIC: Denies numbness. Denies tingling. Denies weakness. PSYCHIATRIC: Denies anxiety. Denies depression. ENDOCRINE: Denies fatigue. Denies weight change. Denies polydipsia. Denies polyurina. GENITOURINARY: Denies burning, hematuria or urgency with micturation. HEMATOLOGIC: Denies history of anemia. Denies bleeding. Blood pressure 105/64 heart rate 59 afebrile maintaining oxygen saturation on room air GENERAL: This is a 63-year-old male in no apparent distress at the time of my examination. HEENT: Head is atraumatic, normocephalic. Pupils are equal, round. Sclerae anicteric. Conjunctivae are clear. Mucous membranes of the mouth are moist. Neck is supple. There is no jugular venous distention. No carotid bruit is heard. LUNGS: Clear to auscultation no wheezes, rales or rhonchi. No chest wall tenderness is noted on palpation or with deep breathing. HEART: Regular rate and rhythm without murmurs, rubs or gallops. S1 and S2 heard. ABDOMEN: Soft, nontender. Bowel sounds are heard. No organomegaly noted. EXTREMITIES: No evidence of peripheral edema and no calf tenderness noted. VASCULAR: Radial and dorsalis pedis pulses palpated, no evidence of clubbing. NEUROLOGIC: Patient is awake, alert and oriented x3. ASSESSMENT Acute kidney injury secondary to diuretic therapy Chronic diastolic heart failure, currently euvolemic Coronary artery disease status post multiple angioplasties with recent cath revealing patent stents. Dyslipidemia Hypertension PLAN Continue current regimen. Discontinue metazalone. When appropriate per nephrology lasix should be resumed. Follow up with Dr. Hernandez upon discharge. Thank you kindly for this consultation. Nurse Practitioner note has been reviewed, I agree with a documented findings and plan of care. Patient was seen and examined. Past Medical History Past Medical History: Coronary Artery Disease (CAD), Chest Pain / Angina, Heart Failure, Dementia, GERD/Reflux, Hyperlipidemia, Hypertension, Myocardial Infarction (ME), Neurologic Disorder, Pneumonia, Prostate Disorder, Renal Disease, Skin Disorder, Sleep Apnea/CPAP/BIPAP Additional Past Medical History / Comment(s): early parkinson's with essential tremors, "lewy body dementia" R nephrolithiasis with surgery, EDITH with no CPAP, Irritable Bowel Syndrome diarrhea off and on, pneumonia/bronchitis, BPH, blood in stool-EGD/colonoscopy were normal, past hiatal hernia(sx), past falls., kidney failure, Last Myocardial Infarction Date:: 06/09/13 History of Any Multi-Drug Resistant Organisms: None Reported Past Surgical History: Heart Catheterization, Heart Catheterization With Stent, Hernia Repair Additional Past Surgical History / Comment(s): 05/2013 stent to LAD and then a cardiac cath which showed stent patent, Recent R kidney stone removal, 03/19/15 Laparoscopic Elizabeth fundlaplication. SKIN GRAFTS CHEST & BACK FROM [place] AT 13 YRS OLD., COLONOSCOPY. EGD, L [facility] eye surgery as toddler. Past Anesthesia/Blood Transfusion Reactions: No Reported Reaction Additional Past Anesthesia/Blood Transfusion Reaction / Comment(s): Pt received blood in 1967 without reaction. Date of Last Stent Placement:: 12/2017 Past Psychological History: Bipolar, Depression Additional Psychological History / Comment(s): Pt lives with his . He has depression but states medication for this is working. He is normally independent. Smoking Status: Never smoker Past Alcohol Use History: None Reported Additional Past Alcohol Use History / Comment(s): Pt quit drinking alcohol in 2004( drank almost on daily basis) Past Drug Use History: None Reported - Past Family History Mother Family Medical History: Liver Disease Additional Family Medical History / Comment(s): Mother was an alcoholic. She of cirrhosis of the liver at age 60yrs. Father Family Medical History: Cancer, Coronary Artery Disease (CAD), Myocardial Infarction (ME) Additional Family Medical History / Comment(s): SKIN CA. Father of a ME at age 65 yrs. Brother(s) Family Medical History: Cancer Additional Family Medical History / Comment(s): LEUKEMIA, LYMPH NODE CA AND MULTIPLE MYELOMA. Medications and Allergies Home Medications Medication Instructions Recorded Confirmed Type Nadolol 40 mg PO QAM 10/07/14 01/07/19 History buPROPion HCL [Wellbutrin XL] 300 mg PO QAM 10/07/14 01/07/19 History lamoTRIgine 150 mg PO BID 03/03/15 01/07/19 History Donepezil [Aricept] 10 mg PO BID 12/20/17 01/07/19 History Memantine HCl [Namenda] 5 mg PO BID 12/20/17 01/07/19 History Pramipexole Di-HCl [Mirapex] 1 mg PO HS 12/20/17 01/07/19 History Primidone [Mysoline] 150 mg PO BID 12/20/17 01/07/19 History QUEtiapine FUMARATE [SEROquel] 50 mg PO HS 12/20/17 01/07/19 History Sertraline [Zoloft] 150 mg PO DAILY 12/20/17 01/07/19 History Clopidogrel [Plavix] 75 mg PO DAILY #30 tab 12/24/17 01/07/19 Rx Pravastatin Sodium [Pravachol] 40 mg PO HS #30 tab 12/24/17 01/07/19 Rx Potassium Chloride ER [K-Dur 10] 10 meq PO DAILY #30 tab 03/10/18 01/07/19 Rx Zolpidem Tartrate [Ambien] 10 mg PO HS 12/10/18 01/07/19 History Doxazosin [Cardura] 4 mg PO HS 12/12/18 01/07/19 History Melatonin 10 mg PO HS 01/07/19 01/07/19 History clonazePAM [KlonoPIN] 0.5 mg PO HS 01/07/19 01/07/19 History Furosemide [Lasix] 40 mg PO BID #0 01/09/19 01/07/19 Rx Pantoprazole [Protonix] 40 mg PO JUANCARLOS #30 tablet. 01/09/19 Rx Allergies Allergy/AdvReac Type Severity Reaction Status Date / Time No Known Allergies Allergy Verified 01/07/19 22:09 Physical Exam Vitals: Vital Signs Temp Pulse Resp BP Pulse Ox 01/09/19 07:02 98.2 F 59 L 16 105/64 92 L 01/09/19 04:43 97.5 F L 51 L 16 93/54 93 L 01/08/19 21:00 97.7 F 58 L 18 129/88 92 L 01/08/19 15:41 65 20 01/08/19 13:00 97.9 F 60 20 119/68 96 01/08/19 11:03 97.9 F 57 L 16 108/65 94 L Intake and Output 01/08/19 01/09/19 01/09/19 22:59 06:59 14:59 Intake Total 480 Balance 480 Intake: Oral 480 Other: Voiding Method Toilet Urinal # Voids 2 2 Results 01/09/19 07:06 01/09/19 07:06 Coagulation 01/08/19 Range/Units 08:00 PT 10.3 (9.0-12.0) sec CBC 01/09/19 Range/Units 07:06 WBC 6.0 (3.8-10.6) k/uL RBC 3.81 L (4.30-5.90) m/uL Hgb 11.9 L (13.0-17.5) gm/dL Hct 36.7 L (39.0-53.0) % Plt Count 250 (150-450) k/uL Comprehensive Metabolic Panel 01/08/19 01/09/19 Range/Units 08:00 07:06 Sodium 138 140 (137-145) mmol/L Potassium 3.6 3.9 (3.5-5.1) mmol/L Chloride 95 L 100 (98-107) mmol/L Carbon Dioxide 33 H 32 H (22-30) mmol/L BUN 71 H 48 H (9-20) mg/dL Creatinine 2.71 H 1.71 H (0.66-1.25) mg/dL Glucose 113 H 138 H (74-99) mg/dL Calcium 9.4 9.6 (8.4-10.2) mg/dL Current Medications Generic Name Dose Route Start Last Admin Trade Name Freq PRN Reason Stop Dose Admin Acetaminophen 500 mg 01/08/19 16:23 01/08/19 17:54 Tylenol Tab PO 500 mg Q6HR PRN Administration Fever and/ or Pain Alprazolam 0.25 mg 01/08/19 16:23 Xanax PO TID PRN Anxiety Bupropion HCl 300 mg 01/08/19 09:00 01/08/19 09:50 Wellbutrin Xl PO 300 mg QAM DELORES Administration Clonazepam 0.5 mg 01/08/19 21:00 01/08/19 20:07 Klonopin PO 0.5 mg HS DELORES Administration Clopidogrel Bisulfate 75 mg 01/08/19 09:00 01/08/19 09:50 Plavix PO 75 mg DAILY DELORES Administration Donepezil HCl 10 mg 01/08/19 09:00 01/08/19 20:06 Aricept PO 10 mg BID DELORES Administration Doxazosin Mesylate 4 mg 01/08/19 21:00 01/08/19 20:06 Cardura PO 4 mg HS DELORES Administration Heparin Sodium (Porcine) 5,000 unit 01/08/19 21:00 01/08/19 22:53 Heparin SQ 5,000 unit Q12HR DELORES Administration Sodium Chloride 1,000 mls @ 50 mls/hr 01/07/19 23:45 01/08/19 20:07 Saline 0.9% IV 50 mls/hr .Q20H DELORES Administration Lamotrigine 150 mg 01/08/19 09:00 01/08/19 20:05 Lamictal PO 150 mg BID DELORES Administration Melatonin 10 mg 01/08/19 21:00 01/08/19 20:06 Melatonin PO 10 mg HS DELORES Administration Memantine 5 mg 01/08/19 09:00 01/08/19 20:06 Namenda PO 5 mg BID DELORES Administration Nadolol 40 mg 01/08/19 09:00 01/08/19 09:51 Corgard PO 40 mg QAM DELORES Administration Naloxone HCl 0.2 mg 01/07/19 23:40 Narcan IV Q2M PRN Opioid Reversal Pantoprazole Sodium 40 mg 01/09/19 07:30 Protonix PO AC-BRKFST DELORES Potassium Chloride 10 meq 01/08/19 09:00 01/08/19 09:51 K-Dur 10 PO 10 meq DAILY DELORES Administration Pramipexole Dihydrochloride 1 mg 01/08/19 21:00 01/08/19 20:06 Mirapex PO 1 mg HS DELORES Administration Pravastatin Sodium 40 mg 01/08/19 21:00 01/08/19 20:06 Pravachol PO 40 mg HS DELORES Administration Primidone 150 mg 01/08/19 09:00 01/08/19 20:04 Mysoline PO 150 mg BID DELORES Administration Quetiapine Fumarate 50 mg 01/08/19 21:00 01/08/19 20:05 Seroquel PO 50 mg HS DELORES Administration Sertraline HCl 150 mg 01/08/19 09:00 01/08/19 09:51 Zoloft PO 150 mg DAILY DELORES Administration Zolpidem Tartrate 10 mg 01/08/19 00:34 01/08/19 22:53 Ambien PO 10 mg HS DELORES Administration Intake and Output 01/08/19 01/09/19 01/09/19 22:59 06:59 14:59 Intake Total 480 Balance 480 Intake: Oral 480 Other: Voiding Method Toilet Urinal # Voids 2 2 01/09/19 07:06 01/09/19 07:06
--- NOTE | 2019-01-10 07:11 | PN ---
PROGRESS NOTE Patient is seen for followup for acute kidney injury. He is currently comfortable. Renal function has improved significantly with creatinine down to 1.7 mg/dL from 3.34. The patient denies any complaints and he would like to go home today. PHYSICAL EXAMINATION: On examination, blood pressure this morning was 105/64, heart rate 59 per minute. He is afebrile. EXAMINATION OF THE HEART: S1, S2. EXAMINATION OF THE LUNGS: Bilateral breath sounds are heard. Abdomen is soft, nontender. Examination of lower extremities shows no evidence of edema. [employer] exam is grossly intact. LABS: Labs show serum creatinine down to 1.7, sodium 140, potassium 3.9, BUN 48, hemoglobin 11.9 g/dL. ASSESSMENT: 1. Acute kidney injury, prerenal, currently significantly improved. I will discontinue the IV fluids. Patient may resume his diuretics at a lower dose as outpatient. We should also see him in the office for followup in about 1 week's time. 2. History of congestive heart failure, ejection fraction not known. 3. Hypertension, currently off of CHERELLE inhibitors. 4. Hypokalemia secondary to diuretics, status post replacement. PLAN: Continue off of lisinopril. Discontinue IV fluids today. The patient can resume lower dose of Lasix at 40 mg daily as outpatient and he will need follow up as outpatient in about 1 week's time. MMODL / IJN: [id number] /
--- NOTE | 2019-01-10 11:39 | DS ---
DISCHARGE SUMMARY DATE OF SERVICE: 01/09/2019 FINAL DIAGNOSES: 1. Acute renal failure possibly prerenal with acute tubular necrosis, possibly medication induced. 2. Hyponatremia. 3. Anemia, normocytic anemia of chronic disease. 4. Coronary artery disease. 5. History of congestive heart failure. 6. Dementia. 7. Gastroesophageal reflux disease. 8. Hypertension. 9. Hyperlipidemia. 10.History of myocardial infarction. 11.History of pneumonia. 12.History of sleep apnea. 13.History of early Parkinson's. 14.History of Lewy body dementia. 15.History of right nephrolithiasis. 16.History of sleep apnea. 17.History of coronary artery disease, stent. 18.History of bipolar depression. 19.Congestive heart failure with chronic diastolic dysfunction, ejection fraction 50% to 55%. DISCHARGE DISPOSITION: The patient will be discharged in stable condition with guarded prognosis. HISTORY OF PRESENT ILLNESS: This is a 63-year-old gentleman with a past medical history of multiple medical problems was admitted with renal failure. The patient had multiple medical issues and the patient was treated with IV fluids. The patient improved significantly. The patient was seen by Dr. Hyde. The creatinine improved to 1.7 from 3.34 and the patient was discharged in stable condition with guarded prognosis. On exam, vitals are stable. CARDIOVASCULAR: S1, S2. ABDOMEN: Soft. NERVOUS SYSTEM: No focal deficit. The Lasix dose was decreased and recommended close follow up with Dr. Hyde and Dr. Hernandez in the outpatient. DISCHARGE ADVICE: 1. Diet is cardiac. 2. Activity limited until followup. 3. Follow up with Dr. Gutierrez to 2 to 3 days.. 4. Follow up with Dr. Hyde as advised. 5. Follow up with Dr. Hernandez as advised. The medications are: 1. Wellbutrin XL 300 mg q.a.m. 2. Klonopin 0.5 mg q.h.s. 3. Aricept 10 mg p.o. b.i.d. 4. Cardura 4 mg q.h.s. 5. Lamictal 150 mg p.o. b.i.d. 6. Melatonin 10 mg q.h.s. 7. Namenda 5 mg p.o. b.i.d. 8. Nadolol 40 mg q.a.m. 9. Mirapex 1 mg q.h.s. 10.Mysoline 150 mg p.o. b.i.d. 11.Seroquel 50 mg q.h.s. 12.Zoloft 150 mg p.o. daily. 13.Ambien 10 mg q.h.s. 14.Plavix 75 mg p.o. daily. 15.Lasix 40 daily p.o. b.i.d. 16.Protonix 40 mg daily. 17.K-Dur 10 mEq p.o. daily. 18.Pravachol 40 mg q.h.s. Once again, the patient will be discharged in a stable condition with a guarded prognosis. MMODL / IJN: [id number] /
== END 2019-01-09 12:45 | disposition home or self-care (01) | DRG 683 ==
LOC: EC 18:31 → 3NMEDONC 23:13
PROVIDERS: ADMIT Hospitalist; ATTEND Hospitalist
DX: N17.9 Acute kidney failure, unspecified (principal); E87.1 Hypo-osmolality and hyponatremia; I50.32 Chronic diastolic (congestive) heart failure; J98.11 Atelectasis; G20 Parkinson's disease; I11.0 Hypertensive heart disease with heart failure; F02.80 Dementia in other diseases classified elsewhere, unspecified severity, without behavioral disturbance, psychotic disturbance, mood disturbance, and anxiety; D63.8 Anemia in other chronic diseases classified elsewhere; E78.5 Hyperlipidemia, unspecified; E86.0 Dehydration; E87.6 Hypokalemia; G47.33 Obstructive sleep apnea (adult) (pediatric); I25.10 Atherosclerotic heart disease of native coronary artery without angina pectoris; I25.2 Old myocardial infarction; K21.9 Gastro-esophageal reflux disease without esophagitis; N40.0 Benign prostatic hyperplasia without lower urinary tract symptoms; T50.2X5A Adverse effect of carbonic-anhydrase inhibitors, benzothiadiazides and other diuretics, initial encounter; F32.9 Major depressive disorder, single episode, unspecified; K44.9 Diaphragmatic hernia without obstruction or gangrene; K58.0 Irritable bowel syndrome with diarrhea; Z79.02 Long term (current) use of antithrombotics/antiplatelets; Z79.899 Other long term (current) drug therapy; Z87.01 Personal history of pneumonia (recurrent); Z87.442 Personal history of urinary calculi; Z95.5 Presence of coronary angioplasty implant and graft; Z80.6 Family history of leukemia; Z80.7 Family history of other malignant neoplasms of lymphoid, hematopoietic and related tissues; Z80.8 Family history of malignant neoplasm of other organs or systems; Z81.1 Family history of alcohol abuse and dependence; Z82.49 Family history of ischemic heart disease and other diseases of the circulatory system; Z83.79 Family history of other diseases of the digestive system
CPT/HCPCS: 36415; 71046; 76770; 80048; 80053; 81003; 83735; 84100; 85025; 85610; 93005; 96360; 99285

== ENCOUNTER → 2019-01-14 | Outpatient (CLI) | payer MEDICARE ==
[2019-01-14 18:39] LABS: Calcium 9.4 mg/dL (8.7-10.3); Potassium 4.2 mmol/L (3.5-5.5)
== END | disposition home or self-care (01) ==
LOC: LABWHC1 08:30
PROVIDERS: ATTEND Internal Medicine Interventional Cardiology
DX: N18.9 Chronic kidney disease, unspecified (principal)
CPT/HCPCS: 36415; 80048

== ENCOUNTER 2019-03-27 13:45 | Inpatient (IN) | payer MEDICARE ==
--- NOTE | 2019-03-27 14:28 | ED ---
General Adult HPI - General Chief complaint: Shortness of Breath Stated complaint: Dyspnea Time Seen by Provider: 03/27/19 13:55 Source: patient, RN notes reviewed Mode of arrival: wheelchair Limitations: no limitations - History of Present Illness Initial comments: Patient is a pleasant 64-year-old male presenting to the emergency department with complaints of difficulty in breathing. Symptoms have progressed over the past couple of weeks. Symptoms do worsen with exertion. No leg swelling. Patient does have history of similar symptoms previously associated with congestive heart failure. Occasional cough. Patient did have fever last week. - Related Data Home Medications Medication Instructions Recorded Confirmed Nadolol 40 mg PO QAM 10/07/14 03/27/19 buPROPion HCL [Wellbutrin XL] 300 mg PO QAM 10/07/14 03/27/19 lamoTRIgine 150 mg PO BID 03/03/15 03/27/19 Donepezil [Aricept] 10 mg PO BID 12/20/17 03/27/19 Memantine HCl [Namenda] 5 mg PO BID 12/20/17 03/27/19 Pramipexole Di-HCl [Mirapex] 1 mg PO HS 12/20/17 03/27/19 Primidone [Mysoline] 150 mg PO BID 12/20/17 03/27/19 QUEtiapine FUMARATE [SEROquel] 50 mg PO HS 12/20/17 03/27/19 Sertraline [Zoloft] 150 mg PO DAILY 12/20/17 03/27/19 Zolpidem Tartrate [Ambien] 10 mg PO HS 12/10/18 03/27/19 Doxazosin [Cardura] 4 mg PO HS 12/12/18 03/27/19 Melatonin 10 mg PO HS 01/07/19 03/27/19 clonazePAM [KlonoPIN] 0.5 mg PO HS 01/07/19 03/27/19 Previous Rx's Medication Instructions Recorded Clopidogrel [Plavix] 75 mg PO DAILY #30 tab 12/24/17 Pravastatin Sodium [Pravachol] 40 mg PO HS #30 tab 12/24/17 Potassium Chloride ER [K-Dur 10] 10 meq PO DAILY #30 tab 03/10/18 Furosemide [Lasix] 40 mg PO BID #0 01/09/19 Pantoprazole [Protonix] 40 mg PO AC-BRKFST #30 tablet. 01/09/19 Allergies Allergy/AdvReac Type Severity Reaction Status Date / Time No Known Allergies Allergy Verified 03/27/19 14:19 Review of Systems ROS Statement: Those systems with pertinent positive or pertinent negative responses have been documented in the HPI. ROS Other: All systems not noted in ROS Statement are negative. Constitutional: Reports: as per HPI, fever Eyes: Denies: eye pain ENT: Denies: ear pain Respiratory: Reports: cough, dyspnea Cardiovascular: Reports: as per HPI Endocrine: Reports: fatigue Gastrointestinal: Denies: abdominal pain Genitourinary: Denies: dysuria Musculoskeletal: Denies: back pain Skin: Denies: rash Neurological: Denies: headache Past Medical History Past Medical History: Coronary Artery Disease (CAD), Chest Pain / Angina, Heart Failure, Dementia, GERD/Reflux, Hyperlipidemia, Hypertension, Myocardial Infarction (NH), Neurologic Disorder, Pneumonia, Prostate Disorder, Renal Disease, Skin Disorder, Sleep Apnea/CPAP/BIPAP Additional Past Medical History / Comment(s): early parkinson's with essential tremors, "lewy body dementia" R nephrolithiasis with surgery, EDITH with no CPAP, Irritable Bowel Syndrome diarrhea off and on, pneumonia/bronchitis, BPH, blood in stool-EGD/colonoscopy were normal, past hiatal hernia(sx), past falls., kidney failure, Last Myocardial Infarction Date:: 06/09/13 History of Any Multi-Drug Resistant Organisms: None Reported Past Surgical History: Heart Catheterization, Heart Catheterization With Stent, Hernia Repair Additional Past Surgical History / Comment(s): 05/2013 stent to LAD and then a ca rdiac cath which showed stent patent, Recent R kidney stone removal, 03/19/15 Laparoscopic Elizabeth fundlaplication. SKIN GRAFTS CHEST & BACK FROM BASSETT AT 13 YRS OLD., COLONOSCOPY. EGD, L lazy eye surgery as toddler. Past Anesthesia/Blood Transfusion Reactions: No Reported Reaction Additional Past Anesthesia/Blood Transfusion Reaction / Comment(s): Pt received blood in 1967 without reaction. Date of Last Stent Placement:: 12/2017 Past Psychological History: Bipolar, Depression Smoking Status: Never smoker Past Alcohol Use History: None Reported Past Drug Use History: None Reported - Past Family History Mother Family Medical History: Liver Disease Additional Family Medical History / Comment(s): Mother was an alcoholic. She of cirrhosis of the liver at age 60yrs. Father Family Medical History: Cancer, Coronary Artery Disease (CAD), Myocardial Infarction (NH) Additional Family Medical History / Comment(s): SKIN CA. Father of a NH at age 65 yrs. Brother(s) Family Medical History: Cancer Additional Family Medical History / Comment(s): LEUKEMIA, LYMPH NODE CA AND MULTIPLE MYELOMA. General Exam Limitations: no limitations General appearance: alert, in no apparent distress Head exam: Present: atraumatic Eye exam: Present: normal appearance, PERRL ENT exam: Present: normal oropharynx Neck exam: Present: normal inspection Respiratory exam: Present: decreased breath sounds Cardiovascular Exam: Present: regular rate, normal rhythm GI/Abdominal exam: Present: soft, distended (Mild distention which patient states she gets with CHF.). Absent: tenderness, guarding, rebound, rigid Extremities exam: Present: normal inspection. Absent: pedal edema, calf tenderness Neurological exam: Present: alert Psychiatric exam: Present: normal affect, normal mood Skin exam: Present: normal color Course Vital Signs 03/27/19 03/27/19 03/27/19 13:49 14:06 14:10 Temperature 98.8 F 100.1 F H Pulse Rate 76 Respiratory 16 20 Rate Blood Pressure 128/80 O2 Sat by Pulse 94 L Oximetry 03/27/19 15:08 Temperature Pulse Rate 65 Respiratory 18 Rate Blood Pressure 141/98 O2 Sat by Pulse 97 Oximetry EKG Findings - EKG Comments: EKG Findings:: Normal sinus rhythm 65. CA 174. QRS 98. QT 412. QTC 420. Normal QRS. No acute ST change. Medical Decision Making - Medical Decision Making Patient reevaluated and resting comfortably in bed. Patient updated on results and plan. Case was discussed in detail with Dr. caba, who will admit for Dr. Gutierrez. Cardiology will be consult. - Lab Data Result diagrams: 03/27/19 14:30 03/27/19 14:30 Lab Results 03/27/19 03/27/19 03/27/19 Range/Units 14:30 14:30 14:30 WBC 6.5 (3.8-10.6) k/uL RBC 3.67 L (4.30-5.90) m/uL Hgb 11.2 L (13.0-17.5) gm/dL Hct 34.0 L (39.0-53.0) % MCV 92.5 (80.0-100.0) fL MCH 30.6 (25.0-35.0) pg MCHC 33.1 (31.0-37.0) g/dL RDW 14.3 (11.5-15.5) % Plt Count 307 (150-450) k/uL Neutrophils % 74 % Lymphocytes % 11 % Monocytes % 7 % Eosinophils % 4 % Basophils % 1 % Neutrophils # 4.8 (1.3-7.7) k/uL Lymphocytes # 0.7 L (1.0-4.8) k/uL Monocytes # 0.5 (0-1.0) k/uL Eosinophils # 0.3 (0-0.7) k/uL Basophils # 0.0 (0-0.2) k/uL PT (9.0-12.0) sec INR (<1.2) APTT (22.0-30.0) sec D-Dimer (<0.60) mg/L FEU Sodium 136 L (137-145) mmol/L Potassium 4.3 (3.5-5.1) mmol/L Chloride 102 (98-107) mmol/L Carbon Dioxide 27 (22-30) mmol/L Anion Gap 7 mmol/L BUN 16 (9-20) mg/dL Creatinine 0.90 (0.66-1.25) mg/dL Est GFR (CKD-EPI)AfAm >90 (>60 ml/min/1.73 sqM) Est GFR (CKD-EPI)NonAf >90 (>60 ml/min/1.73 sqM) Glucose 100 H (74-99) mg/dL Plasma Lactic Acid Sudheer (0.7-2.0) mmol/L Calcium 9.0 (8.4-10.2) mg/dL Total Bilirubin 0.4 (0.2-1.3) mg/dL AST 41 (17-59) U/L ALT 74 H (21-72) U/L Alkaline Phosphatase 156 H (38-126) U/L Creatine Kinase 44 L (55-170) U/L Troponin I (0.000-0.034) ng/mL NT-Pro-B Natriuret Pep 1500 pg/mL Total Protein 6.3 (6.3-8.2) g/dL Albumin 3.5 (3.5-5.0) g/dL Influenza Type A RNA (Not Detectd) Influenza Type B (PCR) (Not Detectd) 03/27/19 03/27/19 03/27/19 Range/Units 14:30 14:30 14:30 WBC (3.8-10.6) k/uL RBC (4.30-5.90) m/uL Hgb (13.0-17.5) gm/dL Hct (39.0-53.0) % MCV (80.0-100.0) fL MCH (25.0-35.0) pg MCHC (31.0-37.0) g/dL RDW (11.5-15.5) % Plt Count (150-450) k/uL Neutrophils % % Lymphocytes % % Monocytes % % Eosinophils % % Basophils % % Neutrophils # (1.3-7.7) k/uL Lymphocytes # (1.0-4.8) k/uL Monocytes # (0-1.0) k/uL Eosinophils # (0-0.7) k/uL Basophils # (0-0.2) k/uL PT 11.4 (9.0-12.0) sec INR 1.1 (<1.2) APTT 25.8 (22.0-30.0) sec D-Dimer (<0.60) mg/L FEU Sodium (137-145) mmol/L Potassium (3.5-5.1) mmol/L Chloride (98-107) mmol/L Carbon Dioxide (22-30) mmol/L Anion Gap mmol/L BUN (9-20) mg/dL Creatinine (0.66-1.25) mg/dL Est GFR (CKD-EPI)AfAm (>60 ml/min/1.73 sqM) Est GFR (CKD-EPI)NonAf (>60 ml/min/1.73 sqM) Glucose (74-99) mg/dL Plasma Lactic Acid Sudheer 0.8 (0.7-2.0) mmol/L Calcium (8.4-10.2) mg/dL Total Bilirubin (0.2-1.3) mg/dL AST (17-59) U/L ALT (21-72) U/L Alkaline Phosphatase (38-126) U/L Creatine Kinase (55-170) U/L Troponin I 0.193 H* (0.000-0.034) ng/mL NT-Pro-B Natriuret Pep pg/mL Total Protein (6.3-8.2) g/dL Albumin (3.5-5.0) g/dL Influenza Type A RNA (Not Detectd) Influenza Type B (PCR) (Not Detectd) 03/27/19 03/27/19 Range/Units 14:30 15:06 WBC (3.8-10.6) k/uL RBC (4.30-5.90) m/uL Hgb (13.0-17.5) gm/dL Hct (39.0-53.0) % MCV (80.0-100.0) fL MCH (25.0-35.0) pg MCHC (31.0-37.0) g/dL RDW (11.5-15.5) % Plt Count (150-450) k/uL Neutrophils % % Lymphocytes % % Monocytes % % Eosinophils % % Basophils % % Neutrophils # (1.3-7.7) k/uL Lymphocytes # (1.0-4.8) k/uL Monocytes # (0-1.0) k/uL Eosinophils # (0-0.7) k/uL Basophils # (0-0.2) k/uL PT (9.0-12.0) sec INR (<1.2) APTT (22.0-30.0) sec D-Dimer 0.44 (<0.60) mg/L FEU Sodium (137-145) mmol/L Potassium (3.5-5.1) mmol/L Chloride (98-107) mmol/L Carbon Dioxide (22-30) mmol/L Anion Gap mmol/L BUN (9-20) mg/dL Creatinine (0.66-1.25) mg/dL Est GFR (CKD-EPI)AfAm (>60 ml/min/1.73 sqM) Est GFR (CKD-EPI)NonAf (>60 ml/min/1.73 sqM) Glucose (74-99) mg/dL Plasma Lactic Acid Sudheer (0.7-2.0) mmol/L Calcium (8.4-10.2) mg/dL Total Bilirubin (0.2-1.3) mg/dL AST (17-59) U/L ALT (21-72) U/L Alkaline Phosphatase (38-126) U/L Creatine Kinase (55-170) U/L Troponin I (0.000-0.034) ng/mL NT-Pro-B Natriuret Pep pg/mL Total Protein (6.3-8.2) g/dL Albumin (3.5-5.0) g/dL Influenza Type A RNA Not Detected (Not Detectd) Influenza Type B (PCR) Not Detected (Not Detectd) - Radiology Data Radiology results: image reviewed (Chest x-ray shows no acute process) Disposition Clinical Impression: NSTEMI (non-ST elevated myocardial infarction) Disposition: ADMITTED IP TO THIS HOSP Is patient prescribed a controlled substance at d/c from ED?: No Referrals: Román Gutierrez DO [Primary Care Provider] - 1-2 days Decision Time: 16:41
--- NOTE | 2019-03-27 14:40 | XR ---
EXAMINATION TYPE: XR chest 2V DATE OF EXAM: 03/27/2019 COMPARISON: 01/07/2019 HISTORY: Shortness of breath TECHNIQUE: Frontal and lateral views of the chest are obtained. FINDINGS: Scattered senescent parenchymal changes noted. Hyperinflation compatible with COPD. No evidence for infiltrate. No evidence for atelectasis. Heart size is stable. Mediastinal structures are stable and grossly unremarkable. No evidence for hilar prominence. Degenerative changes dorsal spine. IMPRESSION: 1. No evidence for acute pulmonary disease.
[2019-03-27 14:56] LABS: ALT 74 U/L (21-72); AST 41 U/L (17-59); Albumin 3.5 g/dL (3.5-5.0); Alkaline Phosphatase 156 U/L (38-126); Anion Gap 7 mmol/L; Blood Urea Nitrogen 16 mg/dL (9-20); Carbon Dioxide 27 mmol/L (22-30); Chloride 102 mmol/L (98-107); Creatine Kinase 44 U/L (55-170); Glucose 100 mg/dL (74-99); Potassium 4.3 mmol/L (3.5-5.1); Sodium 136 mmol/L (137-145); Total Bilirubin 0.4 mg/dL (0.2-1.3); Total Protein 6.3 g/dL (6.3-8.2)
[2019-03-27 15:11] LABS: INR 1.1 (<1.2); Partial Thromboplastin Time 25.8 sec (22.0-30.0); Prothrombin Time 11.4 sec (9.0-12.0)
[2019-03-27 15:25] LABS: Basophils % (A) 1 %; Eosinophils # (A) 0.3 k/uL (0-0.7); Eosinophils % (A) 4 %; HGB 11.2 gm/dL (13.0-17.5); Lymphocytes # (A) 0.7 k/uL (1.0-4.8); Lymphocytes % (A) 11 %; MCH 30.6 pg (25.0-35.0); MCHC 33.1 g/dL (31.0-37.0); MCV 92.5 fL (80.0-100.0); Monocytes # (A) 0.5 k/uL (0-1.0); Monocytes % (A) 7 %; Neutrophils # (A) 4.8 k/uL (1.3-7.7); Neutrophils % (A) 74 %; Platelet Count 307 k/uL (150-450); RBC 3.67 m/uL (4.30-5.90); RDW 14.3 % (11.5-15.5); WBC 6.5 k/uL (3.8-10.6)
[2019-03-27] MEDS ORDERED: ASPIRIN 81 MG PO STA (16:43)
[2019-03-27] MEDS ORDERED: HEPARIN SODIUM,PORCINE 5,000 UNIT/ML 1 ML VIAL IV PRN (16:43)
[2019-03-27] MEDS ORDERED: HEPARIN SODIUM,PORCINE 5,000 UNIT/ML 1 ML VIAL IV ONE (16:43)
[2019-03-27] MEDS ORDERED: NITROGLYCERIN SL TABS 0.4 MG TAB SUBLINGUAL PRN (16:43)
[2019-03-27] MEDS: HEPARIN SOD,PORK IN 0.45% NACL 25,000 UNIT in 0.45% NACL 1 250ML.BAG IV SCH (17:06)
[2019-03-27 19:23] LABS: Appearance,Urine Clear (Clear); Bilirubin,Urine Negative (Negative); Blood,Urine Negative (Negative); Color,Urine Yellow; Glucose,Urine (UA) Negative (Negative); Ketones,Urine Negative (Negative); Leukocyte Esterase,Urine Negative (Negative); Nitrite,Urine Negative (Negative); PH, Urine 6.5 (5.0-8.0); Protein,Urine Trace (Negative); Specific Gravity,Urine 1.025 (1.001-1.035); Urobilinogen,Urine <2.0 mg/dL (<2.0)
[2019-03-27 21:29] VITALS: BMI 30.8
[2019-03-27 21:48] LABS: Troponin I 0.216 ng/mL (0.000-0.034)
[2019-03-27] MEDS: PRIMIDONE 50 MG TAB PO SCH (22:51)
[2019-03-27] MEDS: DONEPEZIL 10 MG TAB PO SCH (22:51)
[2019-03-27] MEDS: clonazePAM 0.5 MG TAB PO SCH (22:51)
[2019-03-27] MEDS: PRAVASTATIN SODIUM 40 MG TAB PO SCH (22:52)
[2019-03-27] MEDS: DOXAZOSIN 4 MG TAB PO SCH (22:52)
[2019-03-27] MEDS: ZOLPIDEM 10 MG TAB PO SCH (22:52)
[2019-03-27] MEDS: QUEtiapine 25 MG TAB PO SCH (22:52)
--- NOTE | 2019-03-27 23:10 | HP ---
HISTORY AND PHYSICAL DATE OF ADMISSION: 03/27/2019 DATE OF SERVICE: 03/27/2019. PRESENTING COMPLAINT: Short of breath. HISTORY OF PRESENTING COMPLAINT: This is a pleasant 64-year-old patient of Dr. Gutierrez whose chronic stable medical conditions include congestive heart failure, EF 55% to 60%, coronary artery disease with stent in December of 2017, GERD, essential hypertension, hyperlipidemia, irritable bowel syndrome, hypertensive heart disease, mild cognitive impairment and interstitial pulmonary fibrosis. The patient has been progressively getting increasingly short of breath for one week, got a cough with yellow sputum. Also had a fever of 102 to 103 at home, decreased appetite, tired, rundown. Hence patient was brought in. The patient did have a cardiac catheterization in November of this year by Dr. Hernandez. No significant disease was found. The patient did also have a high-resolution CT scan that did show pulmonary fibrosis. REVIEW OF SYSTEMS: CONSTITUTIONAL: Weak and tired. Loss of appetite. Fever. HEENT: None. RESPIRATORY: As above. CARDIOVASCULAR: No edema. GASTROINTESTINAL: Heartburn. GENITOURINARY: None. MUSCULOSKELETAL: None. DERMATOLOGICAL: None. HEMATOLOGICAL: None. LYMPHATICS: None. PSYCHIATRY: None. NEUROLOGICAL: None. PAST MEDICAL HISTORY: 1. Congestive heart failure, diastolic dysfunction, EF 55% to 60%. 2. Coronary artery disease with stent in December 2017. 3. GERD. 4. Hypertension. 5. Hyperlipidemia. 6. Irritable bowel syndrome. 7. Hypertensive heart disease. 8. Obstructive sleep apnea. Does not use CPAP. 9. Early Parkinson's with transitional tremors. 10.Lewy body dementia. 11.Right nephrolithiasis with surgery. 12.BPH. PAST SURGICAL HISTORY: 1. Coronary artery disease with stent. 2. Right kidney stone removed. 3. Laparoscopic Elizabeth fundoplication. 4. Skin graft from villareal at 13 years of age. 5. Left lazy eye since surgery. PSYCH HISTORY: Bipolar. SOCIAL HISTORY: . Stopped drinking alcohol in 2004. No smoking. FAMILY HISTORY: Coronary artery disease, skin cancer. HOME MEDICATIONS: 1. Tylenol 1500 mg p.o. daily p.r.n. 2. Hydralazine 25 mg t.i.d. 3. Lamictal 150 mg p.o. b.i.d. 4. Klonopin 0.5 mg p.o. at bedtime. 5. Wellbutrin XL 300 mg p.o. daily. 6. Ambien 10 mg at bedtime. 7. Zoloft 150 mg p.o. daily. 8. Seroquel 50 mg at bedtime. 9. Mysoline 150 mg p.o. b.i.d. 10.Pravachol 40 mg at bedtime. 11.Mirapex 1 mg p.o. at bedtime. 12.Potassium 10 mEq p.o. daily. 13.Protonix 40 mg before breakfast. 14.Marinol 40 mg p.o. daily. 15.Namenda 5 mg p.o. b.i.d. 16.Melatonin 10 mg at bedtime. 17.Lasix 40 mg p.o. b.i.d. 18.Cardura 4 mg at bedtime. 19.Aricept 10 mg b.i.d. 20.Plavix 75 mg p.o. daily. ALLERGIES: NONE. PHYSICAL EXAMINATION: VITAL SIGNS ON PRESENTATION: Temperature 100.1, pulse 76, respiration 20, blood pressure 128/80, pulse ox 94% on room air. GENERAL APPEARANCE: Sitting up. Short of breath. Some wheezing. CARDIOVASCULAR: First and second sounds normal. No edema. ABDOMEN: Soft, non-tender. Liver and spleen not palpable. LYMPHATIC: No lymph node palpable in neck or axillae. PSYCHIATRY: Alert and oriented x3. Mood and affect normal. NEUROLOGICAL: Pupils equal. Cranial nerves grossly intact. Power and sensation grossly intact. INVESTIGATIONS: White count 6.5, hemoglobin 11.2, potassium 4.3. BUN and creatinine normal. Troponin 0.193, 0.216. ProBNP 1500. Influenza A and B negative. EKG tracing, personally reviewed by me, shows normal sinus rhythm. Chest x-ray film, personally reviewed by me, shows no obvious infiltrate. ASSESSMENT: 1. Patient presented with worsening shortness of breath for one week, cough, yellow sputum, fever up to 102 at home. This could be possibly underlying acute tracheobronchitis, though x-ray does not show any obvious evidence of pneumonia. 2. Chronic congestive heart failure from diastolic dysfunction. Ejection fraction 55% to 60%. 3. Coronary artery disease with stent in December 2017 and repeat cardiac cath in November of 2018. 4. Gastroesophageal reflux disease. 5. Essential hypertension. 6. Hyperlipidemia. 7. Irritable bowel syndrome. 8. Hypertensive heart disease. 9. Obesity; body mass index 31. 10.Mild cognitive impairment secondary to early Parkinson's disorder. 11.Troponin leak; could be from hemodynamic mismatch. No obvious evidence of acute coronary syndrome. PLAN: Cardiology and Pulmonary are being consulted. Home medications are resumed. Patient will be put on IV ceftriaxone. Other home medications are resumed. Care was discussed with the patient. MMODL / MARYN: [id number] /
[2019-03-28] MEDS: MELATONIN 5 MG TABLET PO SCH ×2 (00:16→22:27)
[2019-03-28] MEDS: hydrALAZINE HCL 25 MG TAB PO SCH ×4 (00:16→22:27)
[2019-03-28] MEDS: lamoTRIgine 100 MG TAB PO SCH ×3 (00:16→22:27)
[2019-03-28] MEDS: PRAMIPEXOLE 0.5 MG TAB PO SCH ×2 (00:17→22:26)
[2019-03-28] MEDS: MEMANTINE 5 MG TAB PO SCH ×3 (00:17→22:28)
[2019-03-28 03:04] LABS: Mean Platelet Volume 6.8; Platelet Count 323 k/uL (150-450)
[2019-03-28 03:08] LABS: Cholesterol 143 mg/dL (<200); HDL Cholesterol 18 mg/dL (40-60); LDL Cholesterol,Calculated 90 mg/dL (0-99); Triglycerides 174 mg/dL (<150)
[2019-03-28 03:50] LABS: Troponin I 0.253 ng/mL (0.000-0.034)
[2019-03-28] MEDS: PANTOPRAZOLE 40 MG TABLET PO SCH (06:56)
[2019-03-28] MEDS: FUROSEMIDE 80 MG TAB PO SCH ×2 (07:43→22:28)
[2019-03-28] MEDS: CLOPIDOGREL 75 MG TAB PO SCH (07:50)
[2019-03-28] MEDS: buPROPion XL 300 MG TAB.ER.24H PO SCH (07:50)
[2019-03-28] MEDS: DONEPEZIL 10 MG TAB PO SCH ×2 (07:50→22:28)
[2019-03-28] MEDS: NADOLOL 20 MG TAB PO SCH (07:51)
[2019-03-28] MEDS: POTASSIUM CHLORIDE ER 10 MEQ TAB.ER.PRT PO SCH (07:51)
[2019-03-28] MEDS: SERTRALINE 50 MG TAB PO SCH (07:51)
[2019-03-28] MEDS: PRIMIDONE 50 MG TAB PO SCH ×2 (07:51→22:27)
--- NOTE | 2019-03-28 08:13 | P.CRDCN ---
History of Present Illness Consult date: 03/28/19 Requesting physician: Pierce Chakraborty Reason for Consult (text): Abnormal troponin Chief complaint: Cough, shortness of breath, fever History of present illness: This is a pleasant 64-year-old gentleman who follows with Dr. Menendez in the office. He has a known history of coronary artery disease with prior stent placements, hypertension, hyperlipidemia, obstructive sleep apnea, chronic kidney disease, former alcohol abuse. Most recent cardiac catheterization was performed in November of this year which revealed patent stents in the mid RCA, mid circumflex, and mid LAD with severe disease involving the distal apical LAD. He presents to the hospital on this occasion with symptoms of fever of 102, associated cough of productive sputum which is yellow, and exertional shortness of breath. He states he's been feeling well for approximately a week. He went to see his primary care doctor. Lab tests, they called him that his troponins were abnormal and he was advised to come to the hospital for further evaluation and treatment. Chest x-ray on admission did not reveal any evidence for acute pulmonary disease. EKG shows a normal sinus rhythm with nonspecific ST-T wave changes. Blood pressure on arrival here 128/80 with a heart rate in the 70s, 94% on room air. Patient did have a temperature of 100.1. White blood cell count is normal, hemoglobin 11.2, platelet count 323. D-dimer 0.4. Sodium 136, potassium 4.3, BUN 16 and creatinine 0.9. BNP level MD, troponins 0.193, 0.216, 0.253. Influenza A and B were negative. At the time of my examination this morning, patient just complains of feeling weak, he denies having any chest discomfort prior to his admission or at present. His breathing while lying in bed is stable, he did state that just walking to the bathroom he became quite short of breath. Past Medical History Past Medical History: Coronary Artery Disease (CAD), Chest Pain / Angina, Heart Failure, Dementia, GERD/Reflux, Hyperlipidemia, Hypertension, Myocardial Infarction (AR), Neurologic Disorder, Pneumonia, Prostate Disorder, Renal Disease, Skin Disorder, Sleep Apnea/CPAP/BIPAP Additional Past Medical History / Comment(s): early parkinson's with essential tremors, "lewy body dementia" R nephrolithiasis with surgery, EDITH with no CPAP, Irritable Bowel Syndrome diarrhea off and on, pneumonia/bronchitis, BPH, blood in stool-EGD/colonoscopy were normal, past hiatal hernia(sx), past falls., kidney failure, Last Myocardial Infarction Date:: 06/09/13 History of Any Multi-Drug Resistant Organisms: None Reported Past Surgical History: Heart Catheterization, Heart Catheterization With Stent, Hernia Repair Additional Past Surgical History / Comment(s): 05/2013 stent to LAD and then a cardiac cath which showed stent patent, Recent R kidney stone removal, 03/19/15 Laparoscopic Elizabeth fundlaplication. SKIN GRAFTS CHEST & BACK FROM [place] AT 13 YRS OLD., COLONOSCOPY. EGD[facility]. Past Anesthesia/Blood Transfusion Reactions: No Reported Reaction Additional Past Anesthesia/Blood Transfusion Reaction / Comment(s): Pt received blood in 1967 without reaction. Date of Last Stent Placement:: 12/2017 Past Psychological History: Bipolar, Depression Additional Psychological History / Comment(s): Pt lives with his . He has depression but states medication for this is working. He is normally independent. Smoking Status: Never smoker Past Alcohol Use History: None Reported Additional Past Alcohol Use History / Comment(s): Pt quit drinking alcohol in 2004( drank almost on daily basis) Past Drug Use History: None Reported - Past Family History Mother Family Medical History: Liver Disease Additional Family Medical History / Comment(s): Mother was an alcoholic. She of cirrhosis of the liver at age 60yrs. Father Family Medical History: Cancer, Coronary Artery Disease (CAD), Myocardial Infarction (AR) Additional Family Medical History / Comment(s): SKIN CA. Father of a AR at age 65 yrs. Brother(s) Family Medical History: Cancer Additional Family Medical History / Comment(s): LEUKEMIA, LYMPH NODE CA AND MULTIPLE MYELOMA. Medications and Allergies Home Medications Medication Instructions Recorded Confirmed Type Nadolol 40 mg PO QAM 10/07/14 03/27/19 History buPROPion HCL [Wellbutrin XL] 300 mg PO QAM 10/07/14 03/27/19 History lamoTRIgine 150 mg PO BID 03/03/15 03/27/19 History Donepezil [Aricept] 10 mg PO BID 12/20/17 03/27/19 History Memantine HCl [Namenda] 5 mg PO BID 12/20/17 03/27/19 History Pramipexole Di-HCl [Mirapex] 1 mg PO HS 12/20/17 03/27/19 History Primidone [Mysoline] 150 mg PO BID 12/20/17 03/27/19 History QUEtiapine FUMARATE [SEROquel] 50 mg PO HS 12/20/17 03/27/19 History Sertraline [Zoloft] 150 mg PO DAILY 12/20/17 03/27/19 History Clopidogrel [Plavix] 75 mg PO DAILY #30 tab 12/24/17 03/27/19 Rx Pravastatin Sodium [Pravachol] 40 mg PO HS #30 tab 12/24/17 03/27/19 Rx Potassium Chloride ER [K-Dur 10] 10 meq PO DAILY #30 tab 03/10/18 03/27/19 Rx Zolpidem Tartrate [Ambien] 10 mg PO HS 12/10/18 03/27/19 History Doxazosin [Cardura] 4 mg PO HS 12/12/18 03/27/19 History Melatonin 10 mg PO HS 01/07/19 03/27/19 History clonazePAM [KlonoPIN] 0.5 mg PO HS 01/07/19 03/27/19 History Furosemide [Lasix] 40 mg PO BID #0 01/09/19 03/27/19 Rx Pantoprazole [Protonix] 40 mg PO AC-BRKFST #30 tablet.dr 01/09/19 03/27/19 Rx Acetaminophen [Tylenol] 1,500 mg PO DAILY PRN 03/27/19 03/27/19 History hydrALAZINE HCL 25 mg PO TID 03/27/19 03/27/19 History Allergies Allergy/AdvReac Type Severity Reaction Status Date / Time No Known Allergies Allergy Verified 03/27/19 14:19 Physical Exam Vitals: Vital Signs Temp Pulse Pulse Resp BP BP Pulse Ox 03/28/19 04:00 98.2 F 62 18 114/71 92 L 03/28/19 00:00 98.3 F 68 18 132/76 95 03/27/19 21:09 98.2 F 63 18 120/73 96 03/27/19 20:00 98.2 F 63 18 120/73 96 03/27/19 18:48 98.3 F 63 18 138/83 96 03/27/19 17:17 65 16 97 03/27/19 15:08 65 18 141/98 97 03/27/19 14:10 100.1 F H 03/27/19 14:06 20 03/27/19 13:49 98.8 F 76 16 128/80 94 L Intake and Output 03/27/19 03/28/19 03/28/19 22:59 06:59 14:59 Intake Total 240 89.979 67.177 Output Total 200 Balance 40 89.979 67.177 Intake: Intake, IV Titration 89.979 67.177 Amount Heparin Sod,Pork in 0.45% 89.979 67.177 NaCl 25,000 unit In 0.45 % NaCl 1 250ml.bag @ 9.1 UNITS/KG/HR 9.906 mls/hr IV .Q24H [facility] Rx#: [id number] Oral 240 Output: Urine 200 Other: Voiding Method Toilet Toilet # Voids 1 Weight 107.3 kg PHYSICAL EXAMINATION: GENERAL: 64-year-old gentleman in no acute distress at the time of my examination HEENT: Head is atraumatic, normocephalic. Pupils equal, round. Sclera ani cteric. Conjunctiva are clear. Mucous membranes of the mouth are moist. Neck is supple. There is no elevated jugular venous pressure. No carotid bruit is heard. HEART EXAMINATION: Heart S1, S2 normal. No murmur or gallop heard. CHEST EXAMINATION: Ends reveal fine crackles to bilateral bases. ABDOMEN: Soft, nontender. Bowel sounds are heard. No organomegaly noted. EXTREMITIES: 2+ peripheral pulses with no evidence of peripheral edema and no calf tenderness noted. NEUROLOGIC patient is awake, alert and oriented 3 . . Results 03/28/19 02:34 03/27/19 14:30 Cardiac Enzymes 03/27/19 03/27/19 03/27/19 Range/Units 14:30 14:30 20:57 AST 41 (17-59) U/L CK-MB (CK-2) 1.0 (0.0-2.4) ng/mL Troponin I 0.193 H* 0.216 H* (0.000-0.034) ng/mL 03/28/19 Range/Units 02:34 AST (17-59) U/L CK-MB (CK-2) 1.0 (0.0-2.4) ng/mL Troponin I 0.253 H* (0.000-0.034) ng/mL Coagulation 03/27/19 03/27/19 03/28/19 Range/Units 14:30 23:51 06:32 PT 11.4 (9.0-12.0) sec APTT 25.8 28.4 29.9 (22.0-30.0) sec Lipids 03/28/19 Range/Units 02:34 Triglycerides 174 H (<150) mg/dL Cholesterol 143 (<200) mg/dL HDL Cholesterol 18 L (40-60) mg/dL CBC 03/27/19 03/28/19 Range/Units 14:30 02:34 WBC 6.5 (3.8-10.6) k/uL RBC 3.67 L (4.30-5.90) m/uL Hgb 11.2 L (13.0-17.5) gm/dL Hct 34.0 L (39.0-53.0) % Plt Count 307 323 (150-450) k/uL Comprehensive Metabolic Panel 03/27/19 Range/Units 14:30 Sodium 136 L (137-145) mmol/L Potassium 4.3 (3.5-5.1) mmol/L Chloride 102 (98-107) mmol/L Carbon Dioxide 27 (22-30) mmol/L BUN 16 (9-20) mg/dL Creatinine 0.90 (0.66-1.25) mg/dL Glucose 100 H (74-99) mg/dL Calcium 9.0 (8.4-10.2) mg/dL AST 41 (17-59) U/L ALT 74 H (21-72) U/L Alkaline Phosphatase 156 H (38-126) U/L Total Protein 6.3 (6.3-8.2) g/dL Albumin 3.5 (3.5-5.0) g/dL Current Medications Generic Name Dose Route Start Last Admin Trade Name Freq PRN Reason Stop Dose Admin Acetaminophen 1,000 mg 03/27/19 22:10 Tylenol Tab PO DAILY PRN Headache Aspirin 325 mg 03/28/19 09:00 03/28/19 07:50 Aspirin PO 325 mg DAILY [facility] Administration Bupropion HCl 300 mg 03/28/19 09:00 03/28/19 07:50 Wellbutrin Xl PO 300 mg QAM [facility] Administration Clonazepam 0.5 mg 03/27/19 22:15 03/27/19 22:51 Klonopin PO 0.5 mg HS [facility] Administration Clopidogrel Bisulfate 75 mg 03/28/19 09:00 03/28/19 07:50 Plavix PO 75 mg DAILY [facility] Administration Donepezil HCl 10 mg 03/27/19 22:15 03/28/19 07:50 Aricept PO 10 mg BID [facility] Administration Doxazosin Mesylate 4 mg 03/27/19 22:15 03/27/19 22:52 Cardura PO 4 mg HS [facility] Administration Furosemide 40 mg 03/28/19 09:00 03/28/19 07:43 Lasix PO Not Given BID [facility] Heparin Sodium (Porcine) 0 unit 03/27/19 16:43 Heparin IV Q6HR PRN Low PTT Protocol Hydralazine HCl 25 mg 03/27/19 22:15 03/28/19 07:50 Apresoline PO 25 mg TID [facility] Administration Heparin Sodium/Sodium Chloride 250 mls @ 9.906 mls/hr 03/27/19 16:45 03/28/19 07:17 25,000 unit/ Sodium Chloride IV 15.1 units/kg/hr .Q24H [facility] 16.438 mls/hr Titration Protocol 9.1 UNITS/KG/HR Ceftriaxone Sodium 1 gm/ 50 mls @ 100 mls/hr 03/27/19 22:15 03/27/19 23:02 Sodium Chloride IVPB 100 mls/hr Q24H [facility] Administration Lamotrigine 150 mg 03/27/19 22:15 03/28/19 07:50 Lamictal PO 150 mg BID [facility] Administration Melatonin 10 mg 03/27/19 22:15 03/28/19 00:16 Melatonin PO Not Given HS [facility] Memantine 5 mg 03/27/19 22:15 03/28/19 07:51 Namenda PO 5 mg BID [facility] Administration Nadolol 40 mg 03/28/19 09:00 03/28/19 07:51 Corgard PO 40 mg QAM [facility] Administration Nitroglycerin 0.4 mg 03/27/19 16:43 Nitrostat SUBLINGUAL Q5M PRN Chest Pain Pantoprazole Sodium 40 mg 03/28/19 07:30 03/28/19 06:56 Protonix PO 40 mg AC-BRKFST [facility] Administration Potassium Chloride 10 meq 03/28/19 09:00 03/28/19 07:51 K-Dur 10 PO 10 meq DAILY [facility] Administration Pramipexole Dihydrochloride 1 mg 03/27/19 22:15 03/28/19 00:17 Mirapex PO 1 mg HS [facility] Administration Pravastatin Sodium 40 mg 03/27/19 22:15 03/27/19 22:52 Pravachol PO 40 mg HS [facility] Administration Primidone 150 mg 03/27/19 22:15 03/28/19 07:51 Mysoline PO 150 mg BID [facility] Administration Quetiapine Fumarate 50 mg 03/27/19 22:15 03/27/19 22:52 Seroquel PO 50 mg HS [facility] Administration Sertraline HCl 150 mg 03/28/19 09:00 03/28/19 07:51 Zoloft PO 150 mg DAILY [facility] Administration Sodium Chloride 10 ml 03/27/19 21:00 03/28/19 07:52 Saline Flush IV 10 ml BID [facility] Administration Zolpidem Tartrate 10 mg 03/27/19 22:15 03/27/19 22:52 Ambien PO 10 mg HS [facility] Administration Intake and Output 03/27/19 03/28/19 03/28/19 22:59 06:59 14:59 Intake Total 240 89.979 67.177 Output Total 200 Balance 40 89.979 67.177 Intake: Intake, IV Titration 89.979 67.177 Amount Heparin Sod,Pork in 0.45% 89.979 67.177 NaCl 25,000 unit In 0.45 % NaCl 1 250ml.bag @ 9.1 UNITS/KG/HR 9.906 mls/hr IV .Q24H [facility] Rx#: [id number] Oral 240 Output: Urine 200 Other: Voiding Method Toilet Toilet # Voids 1 Weight 107.3 kg 03/28/19 02:34 03/27/19 14:30 EKG Interpretations (text) EKG shows normal sinus rhythm with nonspecific ST-T wave changes. Assessment and Plan Plan: Assessment and plan #1 symptoms of shortness of breath with productive cough of yellow sputum, fever up to 102 at home. Possible tracheobronchitis. Influenza A and B were neg ative. #2 abnormal troponins, could be secondary to infectious process, patient denies chest pain. No significant rise and fall pattern noted. #3 known history of coronary artery disease with prior stent placement #4 hypertension #5 hyperlipidemia #6 sleep apnea #7 Early Parkinson's #8 chronic diastolic congestive heart failure Plan We will obtain an echocardiogram with Doppler study. Decrease aspirin to 81 mg daily, patient has been initiated on IV antibiotics. We will obtain Dr. Menendez's most recent progress note from the office, at this time continue current medical therapy. DNP note has been reviewed, I agree with a documented findings and plan of care. Patient was seen and examined.
[2019-03-28] MEDS ORDERED: ASPIRIN 325 MG TAB PO SCH (09:00)
[2019-03-28] MEDS: ACETAMINOPHEN TAB 500 MG TAB PO PRN (09:02)
--- NOTE | 2019-03-28 10:45 | US ---
EXAMINATION TYPE: US abdomen limited DATE OF EXAM: 03/28/2019 COMPARISON: CT chest December 13, 2018. CLINICAL HISTORY: abdominal distention. ABD distention x many years Scanning of bilateral flank and lower quadrants as well as midline of pelvis shows no drainable fluid collection or ascites. IMPRESSION: As above.
[2019-03-28] MEDS: HEPARIN SOD,PORK IN 0.45% NACL 25,000 UNIT in 0.45% NACL 1 250ML.BAG IV SCH ×2 (15:50→20:52)
[2019-03-28] MEDS ORDERED: VANCOMYCIN IV PER PHARMACY 1 EACH MISC MISCELLANE PRN (15:51)
--- NOTE | 2019-03-28 16:11 | P.CNPUL ---
History of Present Illness Consult date: 03/28/19 Reason for consult: dyspnea Chief complaint: Shortness of breath History of present illness: This is a 64-year-old white male patient with past medical history of coronary artery disease with previous stenting, hypertension, hyperlipidemia, obstructive sleep apnea, and patient does not have a CPAP device, CK-MB, former alcohol abuse. Other history includes Parkinson's disease with essential tremors, BPH, irritable bowel syndrome, depression. he is a lifetime nonsmoker. No history of asthma or COPD. Not on oxygen at his baseline, patient presented to the hospital with complaints of increased shortness of breath, cough with production of some yellow sputum, fever of 102, and increased exertional shortness of breath. He was seen in the office by his primary care physician, who obtained some blood work and troponins were found to be abnormal and patient was advised to come to the hospital for further evaluation and treatment. Chest x-ray on admission did not reveal any evidence of acute pulmonary disease, EKG showed normal sinus rhythm with nonspecific ST and T wave changes. No signs were stable, patient is on room air, and his pulse ox is 94%, he is afebrile currently, did have a low-grade temp on presentation with a temp of 100.1F. No significant leukocytosis, white blood cell count was normal, hemoglobin was 11.2, d-dimer was not elevated to 0.4, electrolytes are within normal limits, and his renal profile was normal. ProBNP was elevated at 1500, and troponins were 0.193, 0.216, 0.253, influenza screen was negative. Patient was started on oral Lasix, enteric antibiotics, breathing treatments, he is on heparin drip for positive troponins. He denies having any chest pain. No palpitations, has had issues with the increased abdominal distention lately, but abdomen is soft, nontender, he stated Dr. Gutierrez was obtain ultrasound of the abdomen to evaluate for ascites, ultrasound the abdomen was obtained and showed no evidence of any drainable fluid collection or ascites. Patient was seen by Dr. Ludwig in the office for his history of obstructive sleep apnea, and his age he was found to be at around 18, patient was having night terrors, and he was unable to wear a CPAP device. No underlying chronic lung disease, his FEV1 is 3.46 L or 85% of predicted, FVC of 4.5 L or 84% of predicted. During my evaluation patient is calm and comfortable, she is resting in bed, he is on room air with pulse ox of 95%, lung sounds are positive for bibasilar crackles, no rhonchi or wheezing. No swelling in his lower extremities Review of Systems All systems: negative Constitutional: Denies chills, Denies fever Eyes: denies blurred vision, denies pain Ears, nose, mouth and throat: Denies headache, Denies sore throat Cardiovascular: Denies chest pain, Denies shortness of breath Respiratory: Denies cough Gastrointestinal: Denies abdominal pain, Denies diarrhea, Denies nausea, Denies vomiting Musculoskeletal: Denies myalgias Integumentary: Denies pruritus, Denies rash Neurological: Denies numbness, Denies weakness Psychiatric: Denies anxiety, Denies depression Endocrine: Denies fatigue, Denies weight change Past Medical History Past Medical History: Coronary Artery Disease (CAD), Chest Pain / Angina, Heart Failure, Dementia, GERD/Reflux, Hyperlipidemia, Hypertension, Myocardial Infarction (GA), Neurologic Disorder, Pneumonia, Prostate Disorder, Renal Disease, Skin Disorder, Sleep Apnea/CPAP/BIPAP Additional Past Medical History / Comment(s): early parkinson's with essential tremors, "lewy body dementia" R nephrolithiasis with surgery, EDITH with no CPAP, Irritable Bowel Syndrome diarrhea off and on, pneumonia/bronchitis, BPH, blood in stool-EGD/colonoscopy were normal, past hiatal hernia(sx), past falls., kidney failure, Last Myocardial Infarction Date:: 06/09/13 History of Any Multi-Drug Resistant Organisms: None Reported Past Surgical History: Heart Catheterization, Heart Catheterization With Stent, Hernia Repair Additional Past Surgical History / Comment(s): 05/2013 stent to LAD and then a cardiac cath which showed stent patent, Recent R kidney stone removal, 03/19/15 Laparoscopic Elizabeth fundlaplication. SKIN GRAFTS CHEST & BACK FROM [place]T AT 13 YRS OLD., COLONOSCOPY. EGD, L abdiely eye surgery as toddler. Past Anesthesia/Blood Transfusion Reactions: No Reported Reaction Additional Past Anesthesia/Blood Transfusion Reaction / Comment(s): Pt received blood in 1967 without reaction. Date of Last Stent Placement:: 12/2017 Past Psychological History: Bipolar, Depression Additional Psychological History / Comment(s): Pt lives with his . He has d epression but states medication for this is working. He is normally independent. Smoking Status: Never smoker Past Alcohol Use History: None Reported Additional Past Alcohol Use History / Comment(s): Pt quit drinking alcohol in 2004( drank almost on daily basis) Past Drug Use History: None Reported - Past Family History Mother Family Medical History: Liver Disease Additional Family Medical History / Comment(s): Mother was an alcoholic. She of cirrhosis of the liver at age 60yrs. Father Family Medical History: Cancer, Coronary Artery Disease (CAD), Myocardial Infarction (GA) Additional Family Medical History / Comment(s): SKIN CA. Father of a GA at age 65 yrs. Brother(s) Family Medical History: Cancer Additional Family Medical History / Comment(s): LEUKEMIA, LYMPH NODE CA AND MULTIPLE MYELOMA. Medications and Allergies Home Medications Medication Instructions Recorded Confirmed Type Nadolol 40 mg PO QAM 10/07/14 03/27/19 History buPROPion HCL [Wellbutrin XL] 300 mg PO QAM 10/07/14 03/27/19 History lamoTRIgine 150 mg PO BID 03/03/15 03/27/19 History Donepezil [Aricept] 10 mg PO BID 12/20/17 03/27/19 History Memantine HCl [Namenda] 5 mg PO BID 12/20/17 03/27/19 History Pramipexole Di-HCl [Mirapex] 1 mg PO HS 12/20/17 03/27/19 History Primidone [Mysoline] 150 mg PO BID 12/20/17 03/27/19 History QUEtiapine FUMARATE [SEROquel] 50 mg PO HS 12/20/17 03/27/19 History Sertraline [Zoloft] 150 mg PO DAILY 12/20/17 03/27/19 History Clopidogrel [Plavix] 75 mg PO DAILY #30 tab 12/24/17 03/27/19 Rx Pravastatin Sodium [Pravachol] 40 mg PO HS #30 tab 12/24/17 03/27/19 Rx Potassium Chloride ER [K-Dur 10] 10 meq PO DAILY #30 tab 03/10/18 03/27/19 Rx Zolpidem Tartrate [Ambien] 10 mg PO HS 12/10/18 03/27/19 History Doxazosin [Cardura] 4 mg PO HS 12/12/18 03/27/19 History Melatonin 10 mg PO HS 01/07/19 03/27/19 History clonazePAM [KlonoPIN] 0.5 mg PO HS 01/07/19 03/27/19 History Furosemide [Lasix] 40 mg PO BID #0 01/09/19 03/27/19 Rx Pantoprazole [Protonix] 40 mg PO AC-BRKFST #30 tablet. 01/09/19 03/27/19 Rx Acetaminophen [Tylenol] 1,500 mg PO DAILY PRN 03/27/19 03/27/19 History hydrALAZINE HCL 25 mg PO TID 03/27/19 03/27/19 History Allergies Allergy/AdvReac Type Severity Reaction Status Date / Time No Known Allergies Allergy Verified 03/27/19 14:19 Physical Exam Vitals: Vital Signs Temp Pulse Pulse Resp BP Pulse Ox 03/28/19 15:20 97.8 F 62 16 113/71 95 03/28/19 11:53 96.6 F L 61 18 115/72 94 L 03/28/19 09:57 94 L 03/28/19 08:00 98 F 67 18 127/79 94 L 03/28/19 04:00 98.2 F 62 18 114/71 92 L 03/28/19 00:00 98.3 F 68 18 132/76 95 03/27/19 21:09 98.2 F 63 18 120/73 96 03/27/19 20:00 98.2 F 63 18 120/73 96 03/27/19 18:48 98.3 F 63 18 138/83 96 03/27/19 17:17 65 16 97 Intake and Output 03/28/19 03/28/19 03/28/19 06:59 14:59 22:59 Intake Total 89.979 880.021 Balance 89.979 880.021 Intake: IV 240 0.9 160 Heparin Sod,Pork in 0.45% 80 NaCl 25,000 unit In 0.45 % NaCl 1 250ml.bag @ 9.1 UNITS/KG/HR 9.906 mls/hr IV .Q24H [facility] Rx#: [id number] Intake, IV Titration 89.979 160.021 Amount Heparin Sod,Pork in 0.45% 89.979 160.021 NaCl 25,000 unit In 0.45 % NaCl 1 250ml.bag @ 9.1 UNITS/KG/HR 9.906 mls/hr IV .Q24H [facility] Rx#: [id number] Oral 480 Other: Voiding Method Toilet # Voids 1 Weight 107.3 kg GENERAL EXAM: Alert, pleasant, 64-year-old white male, on room air, with pulse ox of 95%, comfortable in no apparent distress. HEAD: Normocephalic/atraumatic. EYES: Normal reaction of pupils, equal size. Conjunctiva pink, sclera white. NOSE: Clear with pink turbinates. THROAT: No erythema or exudates. NECK: No masses, no JVD, no thyroid enlargement, no adenopathy. CHEST: No chest wall deformity. Symmetrical expansion. LUNGS: Equal air entry with bibasilar crackles CVS: Regular rate and rhythm, normal S1 and S2, no gallops, no murmurs, no rubs ABDOMEN: Soft, nontender, distended. No hepatosplenomegaly, normal bowel sounds, no guarding or rigidity. EXTREMITIES: No clubbing, no edema, no cyanosis, 2+ pulses and upper and lower extremities. MUSCULOSKELETAL: Muscle strength and tone normal. SPINE: No scoliosis or deformity SKIN: No rashes CENTRAL NERVOUS SYSTEM: Alert and oriented -3. No focal deficits, tone is normal in all 4 extremities. PSYCHIATRIC: Alert and oriented -3. Appropriate affect. Intact judgment and insight. Results - Laboratory Findings CBC and BMP: 03/28/19 02:34 03/27/19 14:30 PT/INR, D-dimer PT 11.4 sec (9.0-12.0) 03/27/19 14:30 INR 1.1 (<1.2) 03/27/19 14:30 D-Dimer 0.44 mg/L FEU (<0.60) 03/27/19 14:30 Abnormal lab findings: Abnormal Labs 03/27/19 03/27/19 03/27/19 14:30 14:30 14:30 RBC 3.67 L Hgb 11.2 L Hct 34.0 L Lymphocytes # 0.7 L APTT Sodium 136 L Glucose 100 H ALT 74 H Alkaline Phosphatase 156 H Creatine Kinase 44 L Troponin I 0.193 H* Triglycerides HDL Cholesterol Urine Protein 03/27/19 03/27/1919 18:55 20:57 20:57 RBC Hgb Hct Lymphocytes # APTT Sodium Glucose ALT Alkaline Phosphatase Creatine Kinase 36 L Troponin I 0.216 H* Triglycerides HDL Cholesterol Urine Protein Trace H 03/28/19 03/28/19 03/28/19 02:34 02:34 02:34 RBC Hgb Hct Lymphocytes # APTT Sodium Glucose ALT Alkaline Phosphatase Creatine Kinase 32 L Troponin I 0.253 H* Triglycerides 174 H HDL Cholesterol 18 L Urine Protein 03/28/19 13:12 RBC Hgb Hct Lymphocytes # APTT 42.4 H Sodium Glucose ALT Alkaline Phosphatase Creatine Kinase Troponin I Triglycerides HDL Cholesterol Urine Protein - Diagnostic Findings Chest x-ray: report reviewed, image reviewed Assessment and Plan Plan: #1. Increased dyspnea, related to acute exacerbation of chronic congestive hea rt failure with previously documented preserved left ventricle systolic function #2. Febrile illness, possibly related to tracheobronchitis, no leukocytosis, no acute pulmonary process on chest x-ray #3. Abdominal distention, an ultrasound the abdomen did not show any significant drainable amount of ascites #4. History of obstructive sleep apnea, with AHI of 17, not on CPAP #5. History of coronary artery disease with previous stenting #6. Hypertention, hyperlipidemia #7. Early Parkinson's disease with the essential tremors #8. Chronic diastolic congestive heart failure Plan: We'll continue with a past, breathing treatments, x-ray was reviewed and did not show any evidence of acute pulmonary process, no focal infiltrates, currently afebrile, blood culture and sent, and is negative thus far, urinalysis was negative for infection. Influenza screen was negative, we'll obtain sputum culture. Echocardiogram is pending, patient is undergoing cardiac evaluation, US ultrasound was obtained and did not show any significant ascites. Continue to follow and make further recommendations based on the course I performed a history & physical examination of the patient and discussed their management with my nurse practitioner, Deidra Dempsey. I reviewed the nurse practitioner's note and agree with the documented findings and plan of care. Lung sounds are positive for basilar rales. The findings and the impression was discussed with the patient. I attest to the documentation by the nurse practitioner. Time with Patient: Greater than 30
[2019-03-28] MEDS ORDERED: VANCOMYCIN 1,750 MG in SODIUM CHLORIDE 0.9% 500 ML 500 ML IVPB ONE (16:30)
[2019-03-28 16:39] LABS: Anion Gap 7 mmol/L; Blood Urea Nitrogen 16 mg/dL (9-20); Calcium 8.5 mg/dL (8.4-10.2); Carbon Dioxide 27 mmol/L (22-30); Chloride 105 mmol/L (98-107); Glucose 92 mg/dL (74-99); Potassium 4.4 mmol/L (3.5-5.1); Sodium 139 mmol/L (137-145)
[2019-03-28 17:31] LABS: ABG Base Excess 2.2 mmol/L; ABG HCO3 26 mmol/L (21-25); ABG Oxygen Saturation 94.7 % (94-97); ABG PCO2 38 mmHg (35-45); ABG PH 7.45 (7.35-7.45); ABG PO2 73 mmHg (83-108); ABG TCO2 27 mmol/L (19-24)
[2019-03-28] MEDS: clonazePAM 0.5 MG TAB PO SCH (22:27)
[2019-03-28] MEDS: QUEtiapine 25 MG TAB PO SCH (22:27)
[2019-03-28] MEDS: DOXAZOSIN 4 MG TAB PO SCH (22:28)
[2019-03-28] MEDS: PRAVASTATIN SODIUM 40 MG TAB PO SCH (22:28)
[2019-03-28] MEDS: ZOLPIDEM 10 MG TAB PO SCH (22:28)
[2019-03-29 03:39] VITALS: RESP 18
[2019-03-29] MEDS ORDERED: VANCOMYCIN 1,750 MG in SODIUM CHLORIDE 0.9% 500 ML 500 ML IVPB SCH (06:00)
[2019-03-29] MEDS: PANTOPRAZOLE 40 MG TABLET PO SCH (06:15)
[2019-03-29] MEDS: ACETAMINOPHEN TAB 500 MG TAB PO PRN (06:15)
[2019-03-29 06:59] LABS: Anion Gap 7 mmol/L; Blood Urea Nitrogen 11 mg/dL (9-20); Calcium 8.6 mg/dL (8.4-10.2); Carbon Dioxide 24 mmol/L (22-30); Chloride 106 mmol/L (98-107); Glucose 100 mg/dL (74-99); Potassium 4.4 mmol/L (3.5-5.1); Sodium 137 mmol/L (137-145)
--- NOTE | 2019-03-29 06:59 | PN ---
PROGRESS NOTE DATE OF SERVICE: 03/28/2019 PRESENTING COMPLAINT: Short of breath. INTERVAL HISTORY: The patient presented with what appears to be acute tracheobronchitis/pneumonia. Feels a little bit less congested today. Decreased cough and decreased sputum production. Had a fever at home. Feels a bit tired. REVIEW OF SYSTEMS: Done for constitutional, cardiovascular, GI, pulmonary; relevant findings as above. CURRENT MEDICATIONS: Current medications are reviewed that include IV ceftriaxone. PHYSICAL EXAMINATION: On examination, temperature 97.8, pulse 62, respirations 16, blood pressure 113/71, pulse ox 97% on room air. GENERAL APPEARANCE: Sitting up, short of breath. EYES: Pupils equal. Conjunctivae normal. NECK: JVD not raised. Mass not palpable. RESPIRATORY: Effort increased. LUNGS: Decreased breath sounds. CARDIOVASCULAR: First and second sounds normal. No edema. ABDOMEN: Soft, nontender. Liver and spleen not palpable. PSYCHIATRY: Alert and oriented x3. Mood and affect normal. INVESTIGATIONS: Troponin 0.1, 0.2, 0.2. Abdominal ultrasound does not show any significant ascites. ASSESSMENT: 1. Pneumonia versus acute tracheobronchitis with a fever up to 102 at home, short of breath, cough, yellow sputum. 2. Chronic congestive heart failure from diastolic dysfunction. Ejection fraction 55% to 60%. 3. Coronary artery disease with stent in December , repeat cardiac cath in November 2018. 4. Gastroesophageal reflux disease. 5. Essential hypertension. 6. Hyperlipidemia. 7. Irritable bowel syndrome. 8. Hypertensive heart disease. 9. Obesity; body mass index 31. 10.Mild cognitive impairment secondary to early Parkinson's disorder. 11.Troponin leak, could be from hemodynamic mismatch. No evidence of acute coronary syndrome. PLAN: Continue current medications and treatment plan. Patient is slowly starting to turn around. Patient was seen both by Cardiology and Pulmonary. Continue with same treatment and DC the IV heparin. MMODL / IJN: [id number] /
[2019-03-29 07:10] LABS: Basophils # (A) 0.1 k/uL (0-0.2); Basophils % (A) 1 %; Eosinophils # (A) 0.2 k/uL (0-0.7); Eosinophils % (A) 3 %; HCT 33.4 % (39.0-53.0); HGB 10.9 gm/dL (13.0-17.5); Lymphocytes # (A) 0.7 k/uL (1.0-4.8); Lymphocytes % (A) 12 %; MCH 30.5 pg (25.0-35.0); MCHC 32.7 g/dL (31.0-37.0); MCV 93.2 fL (80.0-100.0); Monocytes # (A) 0.4 k/uL (0-1.0); Monocytes % (A) 7 %; Neutrophils # (A) 4.1 k/uL (1.3-7.7); Neutrophils % (A) 75 %; Platelet Count 361 k/uL (150-450); RBC 3.58 m/uL (4.30-5.90); RDW 14.8 % (11.5-15.5); WBC 5.4 k/uL (3.8-10.6)
[2019-03-29] MEDS: lamoTRIgine 100 MG TAB PO SCH (08:07)
[2019-03-29] MEDS: NADOLOL 20 MG TAB PO SCH (08:07)
[2019-03-29] MEDS: PRIMIDONE 50 MG TAB PO SCH (08:07)
[2019-03-29] MEDS: MEMANTINE 5 MG TAB PO SCH (08:08)
[2019-03-29] MEDS: POTASSIUM CHLORIDE ER 10 MEQ TAB.ER.PRT PO SCH (08:08)
[2019-03-29] MEDS: buPROPion XL 300 MG TAB.ER.24H PO SCH (08:08)
[2019-03-29] MEDS: FUROSEMIDE 80 MG TAB PO SCH (08:08)
[2019-03-29] MEDS: hydrALAZINE HCL 25 MG TAB PO SCH ×2 (08:08→15:20)
[2019-03-29] MEDS: SERTRALINE 50 MG TAB PO SCH (08:08)
[2019-03-29] MEDS: DONEPEZIL 10 MG TAB PO SCH (08:08)
[2019-03-29] MEDS: CLOPIDOGREL 75 MG TAB PO SCH (08:08)
[2019-03-29] MEDS ORDERED: ASPIRIN 81 MG PO SCH (09:00)
--- NOTE | 2019-03-29 11:09 | ECHOF ---
Referral Reason:nstemi MEASUREMENTS -------- HEIGHT: 182.9 cm WEIGHT: 107.0 kg BP: 114/71 RVIDd: 3.9 cm (< 3.3) IVSd: 1.1 cm (0.6 - 1.1) LVIDd: 4.9 cm (3.9 - 5.3) LVPWd: 1.1 cm (0.6 - 1.1) IVSs: 1.5 cm LVIDs: 4.1 cm LVPWs: 1.7 cm LA Diam: 5.2 cm (2.7 - 3.8) LAESV Index (A-L): 41.85 ml/m Ao Diam: 3.8 cm (2.0 - 3.7) AV Cusp: 2.2 cm (1.5 - 2.6) LA Diam: 4.6 cm (2.7 - 3.8) MV EXCURSION: 18.959 mm (> 18.000) MV EF SLOPE: 74 mm/s (70 - 150) EPSS: 0.4 cm MV E Tna: 0.68 m/s MV DecT: 205 ms MV A Tan: 0.86 m/s MV E/A Ratio: 0.79 RAP: 5.00 mmHg RVSP: 14.49 mmHg FINDINGS -------- Sinus rhythm. This was a technically adequate study. The left ventricular size is normal. Left ventricular wall thickness is normal. Overall left vent ricular systolic function is normal with, an EF between 55 - 60 %. The right ventricle is mildly enlarged. The left atrium is moderately dilated. LA is severely dilated >40 ml/m2 The right atrium is mildly enlarged. Interatrial and interventricular septum intact. Trace amount of aortic regurgitation. Mild mitral regurgitation is present. Trace tricuspid regurgitation present. Right ventricular systolic pressure is normal at < 35 mmHg. The pulmonic valve is normal. The aortic root size is normal. Normal inferior vena cava with normal inspiratory collapse consistent with estimated right atrial pre ssure of 5 mmHg. Echo free space represents a pericardial fat pad. CONCLUSIONS -------- 1. Sinus rhythm. 2. This was a technically adequate study. 3. The left ventricular size is normal. 4. Left ventricular wall thickness is normal. 5. Overall left ventricular systolic function is normal with, an EF between 55 - 60 %. 6. The right ventricle is mildly enlarged. 7. The left atrium is moderately dilated. 8. LA is severely dilated >40 ml/m2 9. The right atrium is mildly enlarged. 10. Interatrial and interventricular septum intact. 11. Trace amount of aortic regurgitation. 12. Mild mitral regurgitation is present. 13. Trace tricuspid regurgitation present. 14. Right ventricular systolic pressure is normal at < 35 mmHg. 15. The pulmonic valve is normal. 16. The aortic root size is normal. 17. Normal inferior vena cava with normal inspiratory collapse consistent with estimated right atrial pressure of 5 mmHg. 18. Echo free space represents a pericardial fat pad. [employer]CR[employer] BOOM OPERATOR: Honey Roberson RDCS
--- NOTE | 2019-03-29 14:14 | P.PN ---
Subjective Progress Note Date: 03/29/19 Principal diagnosis: Tracheobronchitis This is a pleasant 64-year-old gentleman with a known history of CAD and prior LAD stenting, chronic diastolic congestive heart failure, hypertension, dyslipidemia, was admitted to the hospital with symptoms of shortness of breath and productive cough as well as fever of 102 Fahrenheit. He was diagnosed with tracheobronchitis. On follow-up with the patient today, 03/29/2019, he is feeling better intermittent shortness of breath. No chest pain or chest discomfort. The troponin is a slightly elevated but the patient does not have any chest pain or ischemic ST or T-wave abnormalities nor wall motion abnormalities by echocardiogram. We'll continue the conservative medical approach and continue following up with the patient. Objective - Vital Signs Vital signs: Vital Signs Temp 97.4 F L 03/29/19 08:09 Pulse 55 L 03/29/19 11:16 Resp 18 03/29/19 11:16 BP 125/74 03/29/19 11:16 Pulse Ox 96 03/29/19 11:16 Intake & Output 03/28/19 03/29/19 03/29/19 18:59 06:59 18:59 Intake Total 1120.021 480 Output Total 300 Balance 1120.021 180 Intake: IV 240 0.9 160 Heparin Sod,Pork in 0.45% 80 NaCl 25,000 unit In 0.45 % NaCl 1 250ml.bag @ 9.1 UNITS/KG/HR 9.906 mls/hr IV .Q24H [facility] Rx#: [id number] Intake, IV Titration 160.021 Amount Heparin Sod,Pork in 0.45% 160.021 NaCl 25,000 unit In 0.45 % NaCl 1 250ml.bag @ 9.1 UNITS/KG/HR 9.906 mls/hr IV .Q24H [facility] Rx#: [id number] Oral 720 480 Output: Urine 300 Other: Voiding Method Toilet - Constitutional General appearance: Present: no acute distress - Respiratory Respiratory: bilateral: wheezing - Cardiovascular Rhythm: regular Heart sounds: normal: S1, S2 - Labs CBC & Chem 7: 03/29/19 06:25 03/29/19 06:25 Labs: Abnormal Lab Results - Last 24 Hours (Table) 03/28/19 03/28/19 03/29/19 Range/Units 17:27 19:52 06:25 RBC 3.58 L (4.30-5.90) m/uL Hgb 10.9 L (13.0-17.5) gm/dL Hct 33.4 L (39.0-53.0) % Lymphocytes # 0.7 L (1.0-4.8) k/uL APTT 51.7 H (22.0-30.0) sec ABG pO2 73 L (83-108) mmHg ABG HCO3 26 H (21-25) mmol/L ABG Total CO2 27 H (19-24) mmol/L Glucose (74-99) mg/dL 03/29/19 Range/Units 06:25 RBC (4.30-5.90) m/uL Hgb (13.0-17.5) gm/dL Hct (39.0-53.0) % Lymphocytes # (1.0-4.8) k/uL APTT (22.0-30.0) sec ABG pO2 (83-108) mmHg ABG HCO3 (21-25) mmol/L ABG Total CO2 (19-24) mmol/L Glucose 100 H (74-99) mg/dL Microbiology - Last 24 Hours (Table) 03/27/19 14:30 Blood Culture Gram Stain - Preliminary Blood Blood Culture - Preliminary Coagulase Negative Staph 03/27/19 14:30 Blood Culture - Final Blood Assessment and Plan Assessment: Assessment #1 tracheobronchitis #2 CAD and prior LAD stenting #3 chronic diastolic CHF #4 hypertension #5 dyslipidemia Plan #1 continue the current medical regimen #2 the echocardiogram was reviewed and revealed normal LV function without wall motion abnormalities #3 continue the conservative approach regarding the mildly abnormal cardiac enzymes
--- NOTE | 2019-03-29 14:18 | P.PN ---
Subjective Progress Note Date: 03/29/19 Principal diagnosis: Shortness of breath This is a 64-year-old white male patient with past medical history of coronary artery disease with previous stenting, hypertension, hyperlipidemia, obstructive sleep apnea, and patient does not have a CPAP device, CK-MB, former alcohol abu se. Other history includes Parkinson's disease with essential tremors, BPH, irritable bowel syndrome, depression. he is a lifetime nonsmoker. No history of asthma or COPD. Not on oxygen at his baseline, patient presented to the hospital with complaints of increased shortness of breath, cough with production of some yellow sputum, fever of 102, and increased exertional shortness of breath. He was seen in the office by his primary care physician, who obtained some blood work and troponins were found to be abnormal and patient was advised to come to the hospital for further evaluation and treatment. Chest x-ray on admission did not reveal any evidence of acute pulmonary disease, EKG showed normal sinus rhythm with nonspecific ST and T wave changes. No signs were stable, patient is on room air, and his pulse ox is 94%, he is afebrile currently, did have a low-grade temp on presentation with a temp of 100.1F. No significant leukocytosis, white blood cell count was normal, hemoglobin was 11.2, d-dimer was not elevated to 0.4, electrolytes are within normal limits, and his renal profile was normal. ProBNP was elevated at 1500, and troponins were 0.193, 0.216, 0.253, influenza screen was negative. Patient was started on oral Lasix, enteric antibiotics, breathing treatments, he is on heparin drip for positive troponins. He denies having any chest pain. No palpitations, has had issues with the increased abdominal distention lately, but abdomen is soft, nontender, he stated Dr. Gutierrez was obtain ultrasound of the abdomen to evaluate for ascites, ultrasound the abdomen was obtained and showed no evidence of any drainable fluid collection or ascites. Patient was seen by Dr. Ludwig in the office for his history of obstructive sleep apnea, and his age he was found to be at around 18, patient was having night terrors, and he was unable to wear a CPAP device. No underlying chronic lung disease, his FEV1 is 3.46 L or 85% of predicted, FVC of 4.5 L or 84% of predicted. During my evaluation patient is calm and comfortable, she is resting in bed, he is on room air with pulse ox of 95%, lung sounds are positive for bibasilar crackles, no rhonchi or wheezing. No swelling in his lower extremities On 03/29/2019 patient seen in follow-up on selective care unit, he is awake and alert, in no acute distress, he is resting comfortably in bed, denies any chest pain, lung sounds are diminished at the bases, a few crackles, no rhonchi, no wheezes, abdomen is large obese and soft, ultrasound the abdomen did not show any amount of drainable ascites. Patient has been up ambulating in the room, tolerating activity well, he has been afebrile, echocardiogram was completed and showed normal left ventricular systolic function with an EF of 55-60%, trace aortic regurgitation, mild mitral regurgitation, trace tricuspid regurgitation, right ventricular systolic pressure is less than 35mm is of mercury. Room air pulse ox is 96%, blood culture is showing coagulase-negative staph, likely contamination. No complaints of chest pain, no difficulty breathing, no significant congestion. Objective - Vital Signs Vital signs: Vital Signs Temp 97.4 F L 03/29/19 08:09 Pulse 55 L 03/29/19 11:16 Resp 18 03/29/19 11:16 BP 125/74 03/29/19 11:16 Pulse Ox 96 03/29/19 11:16 Intake & Output 03/28/19 03/29/19 03/29/19 18:59 06:59 18:59 Intake Total 1120.021 480 Output Total 300 Balance 1120.021 180 Intake: IV 240 0.9 160 Heparin Sod,Pork in 0.45% 80 NaCl 25,000 unit In 0.45 % NaCl 1 250ml.bag @ 9.1 UNITS/KG/HR 9.906 mls/hr IV .Q24H [facility]OR[facility] Rx#: [id number] Intake, IV Titration 160.021 Amount Heparin Sod,Pork in 0.45% 160.021 NaCl 25,000 unit In 0.45 % NaCl 1 250ml.bag @ 9.1 UNITS/KG/HR 9.906 mls/hr IV .Q24H [facility]OR[facility] Rx#: [id number] Oral 720 480 Output: Urine 300 Other: Voiding Method Toilet - Exam GENERAL EXAM: Alert, pleasant, 64-year-old white male, on room air, with pulse ox of 95%, comfortable in no apparent distress. HEAD: Normocephalic/atraumatic. EYES: Normal reaction of pupils, equal size. Conjunctiva pink, sclera white. NOSE: Clear with pink turbinates. THROAT: No erythema or exudates. NECK: No masses, no JVD, no thyroid enlargement, no adenopathy. CHEST: No chest wall deformity. Symmetrical expansion. LUNGS: Equal air entry with bibasilar crackles CVS: Regular rate and rhythm, normal S1 and S2, no gallops, no murmurs, no rubs ABDOMEN: Soft, nontender, distended. No hepatosplenomegaly, normal bowel sounds, no guarding or rigidity. EXTREMITIES: No clubbing, no edema, no cyanosis, 2+ pulses and upper and lower extremities. MUSCULOSKELETAL: Muscle strength and tone normal. SPINE: No scoliosis or deformity SKIN: No rashes CENTRAL NERVOUS SYSTEM: Alert and oriented -3. No focal deficits, tone is normal in all 4 extremities. PSYCHIATRIC: Alert and oriented -3. Appropriate affect. Intact judgment and insight. - Labs CBC & Chem 7: 03/29/19 06:25 03/29/19 06:25 Labs: Abnormal Lab Results - Last 24 Hours (Table) 03/28/19 03/28/19 03/29/19 Range/Units 17:27 19:52 06:25 RBC 3.58 L (4.30-5.90) m/uL Hgb 10.9 L (13.0-17.5) gm/dL Hct 33.4 L (39.0-53.0) % Lymphocytes # 0.7 L (1.0-4.8) k/uL APTT 51.7 H (22.0-30.0) sec ABG pO2 73 L (83-108) mmHg ABG HCO3 26 H (21-25) mmol/L ABG Total CO2 27 H (19-24) mmol/L Glucose (74-99) mg/dL 03/29/19 Range/Units 06:25 RBC (4.30-5.90) m/uL Hgb (13.0-17.5) gm/dL Hct (39.0-53.0) % Lymphocytes # (1.0-4.8) k/uL APTT (22.0-30.0) sec ABG pO2 (83-108) mmHg ABG HCO3 (21-25) mmol/L ABG Total CO2 (19-24) mmol/L Glucose 100 H (74-99) mg/dL Microbiology - Last 24 Hours (Table) 03/27/19 14:30 Blood Culture Gram Stain - Preliminary Blood Blood Culture - Preliminary Coagulase Negative Staph 03/27/19 14:30 Blood Culture - Final Blood Assessment and Plan Plan: #1. Increased dyspnea, related to acute exacerbation of chronic congestive hea rt failure with previously documented preserved left ventricle systolic function #2. Febrile illness, possibly related to tracheobronchitis, no leukocytosis, no acute pulmonary process on chest x-ray #3. Abdominal distention, an ultrasound the abdomen did not show any significant drainable amount of ascites #4. History of obstructive sleep apnea, with AHI of 17, not on CPAP #5. History of coronary artery disease with previous stenting #6. Hypertention, hyperlipidemia #7. Early Parkinson's disease with the essential tremors #8. Chronic diastolic congestive heart failure Plan: Vital signs have been stable, patient is afebrile, blood cultures showing coagulase-negative staph, likely contamination, no acute events overnight, no worsening dyspnea, no chest pain, echocardiogram showed normal ventricular function, patient is on empiric antibiotics, breathing treatments, oral diu retics. Doing well. Will await further recommendations from cardiology I performed a history & physical examination of the patient and discussed their management with my nurse practitioner, Deidra Dempsey. I reviewed the nurse practitioner's note and agree with the documented findings and plan of care. Lung sounds are positive for basilar rales. The findings and the impression was discussed with the patient. I attest to the documentation by the nurse practitioner. Time with Patient: Less than 30
[2019-03-29 15:23] VITALS: BP 137/102; PULSE 58; TEMP 97.5
--- NOTE | 2019-03-30 14:34 | DS ---
DISCHARGE SUMMARY DATE OF ADMISSION: 03/27/2019 DATE OF DISCHARGE: 03/29/2019 FINAL DIAGNOSES: 1. Pneumonia suspect gram-negative organism, POA. 2. Chronic congestive heart failure from diastolic dysfunction. Ejection fraction 55% to 60%. 3. Coronary artery disease with stent in December of 2017. 4. Gastroesophageal reflux disease. 5. Essential hypertension. 6. Hyperlipidemia. 7. Irritable bowel syndrome. 8. Hypertensive heart disease. 9. Obesity; body mass index 31. 10.Mild cognitive impairment secondary to Parkinson's disorder. 11.Troponin leak due to hemodynamic mismatch. No evidence of acute coronary syndrome. CONSULTATIONS: Dr. Hernandez from Cardiology; Dr. Sanabria from Pulmonary. HOSPITAL COURSE: This patient presented with what appears to be pneumonia and a small troponin leak. Doing much better by the time of discharge, up and about, tolerating a diet. Did have a abdominal ultrasound unremarkable and 2-D echocardiogram, EF of 55% to 60%. On examination, temperature 97.5, pulse 58, respiration 18, blood pressure 137/102, pulse ox 95% on room air. The patient is up and about in the hallway. LUNGS: Improved air entry. CARDIOVASCULAR: First and second sounds normal. DISCHARGE MEDICATIONS: 1. Nadolol 40 mg p.o. daily. 2. Wellbutrin XL 300 mg p.o. daily. 3. Lamictal 150 mg p.o. b.i.d. 4. Aricept 10 mg p.o. b.i.d. 5. Namenda 5 mg p.o. b.i.d. 6. Mirapex 1 mg p.o. q.h.s. 7. Mysoline 150 mg p.o. b.i.d. 8. Seroquel 50 mg q.h.s. 9. Zoloft 150 mg p.o. daily. 10.Plavix 75 mg p.o. daily. 11.Pravachol 40 mg q.h.s. 12.Potassium 10 mEq p.o. daily. 13.Ambien 10 mg q.h.s. 14.Cardura 4 mg q.h.s. 15.Melatonin 10 mg q.h.s. 16.Klonopin 0.5 mg p.o. q.h.s. 17.Lasix 40 mg b.i.d. 18.Protonix 40 mg before breakfast. 19.Tylenol 1500 mg p.o. daily p.r.n. 20.Hydralazine 25 mg p.o. t.i.d. 21.Aspirin 81 mg p.o. daily. 22.Ceftin 500 mg p.o. b.i.d. for 3 days. Follow up with Dr. Gutierrez on 04/03/2019. Follow up with Dr. Hernandez on 04/01/2019. MMBRYNL / IJN: [id number] /
== END 2019-03-29 16:50 | disposition home or self-care (01) | DRG 178 ==
LOC: EC 13:45 → 3SCARD 16:43
PROVIDERS: ADMIT Hospitalist; ATTEND Hospitalist
DX: J15.6 Pneumonia due to other Gram-negative bacteria (principal); I50.32 Chronic diastolic (congestive) heart failure; I11.0 Hypertensive heart disease with heart failure; J84.10 Pulmonary fibrosis, unspecified; F02.80 Dementia in other diseases classified elsewhere, unspecified severity, without behavioral disturbance, psychotic disturbance, mood disturbance, and anxiety; G31.83 Neurocognitive disorder with Lewy bodies; E66.9 Obesity, unspecified; R77.9 Abnormality of plasma protein, unspecified; E78.5 Hyperlipidemia, unspecified; G47.33 Obstructive sleep apnea (adult) (pediatric); I34.0 Nonrheumatic mitral (valve) insufficiency; I25.10 Atherosclerotic heart disease of native coronary artery without angina pectoris; I25.2 Old myocardial infarction; K21.9 Gastro-esophageal reflux disease without esophagitis; K58.9 Irritable bowel syndrome, unspecified; N40.0 Benign prostatic hyperplasia without lower urinary tract symptoms; F32.9 Major depressive disorder, single episode, unspecified; Z68.31 Body mass index [BMI] 31.0-31.9, adult; Z79.02 Long term (current) use of antithrombotics/antiplatelets; Z79.899 Other long term (current) drug therapy; Z87.442 Personal history of urinary calculi; Z95.5 Presence of coronary angioplasty implant and graft; Z87.01 Personal history of pneumonia (recurrent); Z80.6 Family history of leukemia; Z80.8 Family history of malignant neoplasm of other organs or systems; Z81.1 Family history of alcohol abuse and dependence; Z82.49 Family history of ischemic heart disease and other diseases of the circulatory system
CPT/HCPCS: 36415; 36600; 71046; 76705; 80048; 80053; 80061; 81003; 82550; 82553; 82805; 83605; 83880; 84484; 85025; 85049; 85379; 85610; 85730; 87040; 87077; 87186; 87502; 93005; 93306; 94760; 96374; 99291

== ENCOUNTER → 2019-07-02 | Outpatient (CLI) | payer MEDICARE | END | disposition home or self-care (01) | LOC: LAB 10:31 | PROVIDERS: ATTEND Urology | DX: N40.1 Benign prostatic hyperplasia with lower urinary tract symptoms (principal) | CPT/HCPCS: 84153 ==

== ENCOUNTER 2019-08-04 22:57 | Inpatient (IN) | payer MEDICARE ==
[~2019-08-04 22:57] MED LIST: IV FLUID CONTINUATION 400 ML IV ONE; LIDOCAINE 1% INJ 10MG/ML (20 ML MDV) SQ ONE
[2019-08-04] MEDS ORDERED: SODIUM CHLORIDE 0.9% 1,000 ML IV STA (23:02)
[2019-08-04] MEDS ORDERED: NITROGLYCERIN OINT 1 INCH/GM PACKET TOPICAL STA (23:02)
[2019-08-04] MEDS ORDERED: HEPARIN SODIUM,PORCINE 5,000 UNIT/ML 1 ML VIAL IV STA (23:02)
[2019-08-04 23:11] LABS: Anisocytosis Slight; Basophils # (A) 0.1 k/uL (0-0.2); Basophils % (A) 1 %; Eosinophils # (A) 0.3 k/uL (0-0.7); Eosinophils % (A) 5 %; HCT 38.3 % (39.0-53.0); Lymphocytes # (A) 1.3 k/uL (1.0-4.8); Lymphocytes % (A) 21 %; MCH 29.4 pg (25.0-35.0); MCHC 33.8 g/dL (31.0-37.0); MCV 86.9 fL (80.0-100.0); Mean Platelet Volume 6.6; Monocytes # (A) 0.5 k/uL (0-1.0); Monocytes % (A) 7 %; Neutrophils # (A) 3.9 k/uL (1.3-7.7); Neutrophils % (A) 63 %; Platelet Count 237 k/uL (150-450); RBC 4.41 m/uL (4.30-5.90); RDW 16.2 % (11.5-15.5); WBC 6.1 k/uL (3.8-10.6)
--- NOTE | 2019-08-04 23:13 | ED ---
Chest Pain HPI - General Stated Complaint: chest pain Time Seen by Provider: 08/04/19 23:02 Source: patient, EMS Mode of arrival: EMS Limitations: no limitations - History of Present Illness Initial Comments: Ye is a 64-year-old gentleman with a history of known coronary artery disease who presents to the emergency department today for evaluation of chest pain. Patient reports that he was resting at home sitting on the couch when he developed left-sided retrosternal chest pain. Patient then contacted EMS, EMS arrived on scene and gave him aspirin as well as nitro in route to the hospital the patient began saying that the pain was now pressure-like and more severe. Patient was somewhat diaphoretic appearing uncomfortable. A repeat EKG showed new developing ST elevations in the anterior leads. - Related Data Home Medications Medication Instructions Recorded Confirmed Nadolol 40 mg PO QAM 10/07/14 08/04/19 buPROPion HCL [Wellbutrin XL] 300 mg PO QAM 10/07/14 08/04/19 lamoTRIgine 150 mg PO BID 03/03/15 08/04/19 Donepezil [Aricept] 10 mg PO BID 12/20/17 08/04/19 Memantine HCl [Namenda] 5 mg PO BID 12/20/17 08/04/19 Pramipexole Di-HCl [Mirapex] 1 mg PO HS 12/20/17 08/04/19 Primidone [Mysoline] 150 mg PO BID 12/20/17 08/04/19 QUEtiapine FUMARATE [SEROquel] 50 mg PO HS 12/20/17 08/04/19 Sertraline [Zoloft] 150 mg PO DAILY 12/20/17 08/04/19 Zolpidem Tartrate [Ambien] 10 mg PO HS 12/10/18 08/04/19 Doxazosin [Cardura] 4 mg PO HS 12/12/18 08/04/19 Melatonin 10 mg PO HS 01/07/19 08/04/19 Acetaminophen [Tylenol] 1,000 mg PO DAILY PRN 03/27/19 08/04/19 hydrALAZINE HCL 25 mg PO TID 03/27/19 08/04/19 HYDROcodone/APAP 5-325MG [Tupman 1 tab PO BID PRN 08/04/19 08/04/19 5-325] clonazePAM [KlonoPIN] 1 mg PO HS 08/04/19 08/04/19 Previous Rx's Medication Instructions Recorded Clopidogrel [Plavix] 75 mg PO DAILY #30 tab 12/24/17 Pravastatin Sodium [Pravachol] 40 mg PO HS #30 tab 12/24/17 Potassium Chloride ER [K-Dur 10] 10 meq PO DAILY #30 tab 03/10/18 Furosemide [Lasix] 40 mg PO BID #0 01/09/19 Pantoprazole [Protonix] 40 mg PO AC-BRKFST #30 tablet. 01/09/19 Allergies Allergy/AdvReac Type Severity Reaction Status Date / Time No Known Allergies Allergy Verified 08/04/19 23:21 Review of Systems ROS Statement: Those systems with pertinent positive or pertinent negative responses have been documented in the HPI. ROS Other: All systems not noted in ROS Statement are negative. EKG Findings - EKG Comments: EKG Findings:: Prehospital initial EKG was obtained at 2237, sinus rhythm normal axis normal intervals no obvious ST elevations or depressions. Repeat prehospital EKG obtained at 2251, sinus rhythm with ST elevations in V2 V3 and V4 concerning for STEMI. Initial 12-lead EKG obtained at 2300, rate is 73 rhythm is sinus with PVCs, normal axis, normal intervals, SD 172, QRS 98, QTC 442. There are significant ST elevations in leads V3 and V4 with minimal ST depression in lead 1 but no other reciprocal changes. This is concerning for acute infarction. Repeat EKG obtained at 2312, rate is 60 rhythm is sinus there is normal axis, there are normal intervals, SD 176, QRS 92, QTc 433. There continues to be ST elevations in V3 and V4 patient concerning for ischemia Past Medical History Past Medical History: Coronary Artery Disease (CAD), Chest Pain / Angina, Heart Failure, Dementia, GERD/Reflux, Hyperlipidemia, Hypertension, Myocardial Infarction ([place]), Neurologic Disorder, Pneumonia, Prostate Disorder, Renal Disease, Skin Disorder, Sleep Apnea/CPAP/BIPAP Additional Past Medical History / Comment(s): early parkinson's with essential tremors, "lewy body dementia" R nephrolithiasis with surgery, EDITH with no CPAP, Irritable Bowel Syndrome diarrhea off and on, pneumonia/bronchitis, BPH, blood in stool-EGD/colonoscopy were normal, past hiatal hernia(sx), past falls., kidney failure, Last Myocardial Infarction Date:: 06/09/13 History of Any Multi-Drug Resistant Organisms: None Reported Past Surgical History: Heart Catheterization, Heart Catheterization With Stent, Hernia Repair Additional Past Surgical History / Comment(s): 05/2013 stent to LAD and then a cardiac cath which showed stent patent, Recent R kidney stone removal, 03/19/15 Laparoscopic Elizabeth fundlaplication. SKIN GRAFTS CHEST & BACK FROM BASSETT AT 13 YRS OLD., COLONOSCOPY. EGD, L lazy eye surgery as toddler. Past Anesthesia/Blood Transfusion Reactions: No Reported Reaction Additional Past Anesthesia/Blood Transfusion Reaction / Comment(s): Pt received blood in 1967 without reaction. Date of Last Stent Placement:: 12/2017 Past Psychological History: Bipolar, Depression Smoking Status: Never smoker Past Alcohol Use History: None Reported Past Drug Use History: None Reported - Past Family History Mother Family Medical History: Liver Disease Additional Family Medical History / Comment(s): Mother was an alcoholic. She of cirrhosis of the liver at age 60yrs. Father Family Medical History: Cancer, Coronary Artery Disease (CAD), Myocardial Infarction ([place]) Additional Family Medical History / Comment(s): SKIN CA. Father of a [place] at age 65 yrs. Brother(s) Family Medical History: Cancer Additional Family Medical History / Comment(s): LEUKEMIA, LYMPH NODE CA AND MULTIPLE MYELOMA. General Exam - General Exam Comments Initial Comments: Physical Exam GENERAL: Uncomfortable appearing 64-year-old gentleman Diaphoretic, merino discoloration of skin HENT: Normocephalic, Atraumatic. EYES: PERRL, EOMI PULMONARY: Unlabored respirations. No audible rales rhonchi or wheezing was noted. CARDIOVASCULAR: There is a regular rate and rhythm without any murmurs gallops or rubs. Warm and well perfused extremities Strong radial DP and PT pulses ABDOMEN: Soft and nontender with normal bowel sounds. No palpable masses, no pulsatile masses SKIN: Diaphoretic : External genitalia NEUROLOGIC: Patient is alert and oriented x3. Moving all extremities spontaneously MUSCULOSKELETAL: Normal extremities with adequate strength and full range of motion. No lower extremity swelling or edema. No calf tenderness. PSYCHIATRIC: Normal psychiatric evaluation. Limitations: no limitations Course Vital Signs 08/04/19 08/04/19 08/04/19 22:57 23:14 23:21 Temperature 97.8 F Pulse Rate 69 62 63 Respiratory 16 20 16 Rate Blood Pressure 158/101 177/106 139/85 O2 Sat by Pulse 95 98 96 Oximetry Chest Pain MDM - Differential Diagnosis AMI - MDM Prehospital EKG concerning for STEMI EKG upon arrival concerning for ischemic changes with ST elevations in V3 and V4 no reciprocal changes Patient care was discussed with Dr. Gibbons cardiology exceptional children teacher assistant agrees with plan for activation of labor operator Meds and admission ordered Critical Care Time Critical Care Time: Yes Total Critical Care Time: 30 Critical Care Time: Critical Care Time Critical care time was exclusive of separately billable procedures and treating other patients and teaching time. Critical care was necessary to treat or prevent imminent or life-threatening deterioration. Given the critical condition in which the patient arrived, the patient was immediately assessed by myself and the nurse, and cardiac monitoring initiated due to the potential for rapid decompensation of the patient's clinical condition. During the course of the patients stay, I spent a considerable amount of time at the bedside performing serial re-evaluations of the patient's hemodynamic and clinical status because of the recognized potential threat to life or limb in this condition. I then had a chance to review not only all of the available current laboratory and radiographic studies obtained today, but I also reviewed old records available to me at the time. Additionally, any ancillary information available including nanotechnology engineering technician records were reviewed. Sequential vital signs were obtained. Disposition Clinical Impression: ST elevation myocardial infarction (STEMI) Disposition: ADMITTED IP TO THIS HOSP Condition: Serious
[2019-08-04 23:20] LABS: ALT 45 U/L (21-72); AST 38 U/L (17-59); African American GFR (CKD) >90 (>60 ml/min/1.73 sqM); Albumin 4.1 g/dL (3.5-5.0); Alkaline Phosphatase 81 U/L (38-126); Anion Gap 10 mmol/L; Blood Urea Nitrogen 15 mg/dL (9-20); Calcium 9.4 mg/dL (8.4-10.2); Carbon Dioxide 25 mmol/L (22-30); Chloride 106 mmol/L (98-107); Glucose 94 mg/dL (74-99); Magnesium 2.1 mg/dL (1.6-2.3); Potassium 4.1 mmol/L (3.5-5.1); Sodium 141 mmol/L (137-145); Total Bilirubin 0.3 mg/dL (0.2-1.3); Total Protein 7.3 g/dL (6.3-8.2)
[2019-08-04] MEDS ORDERED: NALOXONE 0.4 MG/ML 1 ML VIAL IV PRN (23:22)
[2019-08-04 23:26] LABS: Partial Thromboplastin Time 24.5 sec (22.0-30.0); Prothrombin Time 10.4 sec (9.0-12.0)
[2019-08-04] MEDS ORDERED: MIDAZOLAM (PF) 2 MG/2 ML VIAL IV ONE (23:56)
--- NOTE | 2019-08-04 23:56 | XR ---
EXAM: XR Chest, 1 View CLINICAL HISTORY: ITS.REASON XR Reason: chest pain TECHNIQUE: Frontal view of the chest. COMPARISON: Chest radiography 03/27/19 FINDINGS: Lungs: Atelectasis versus infiltrate at the left lower lobe. Pleural space: Unremarkable. No pneumothorax. Heart: Unremarkable. No cardiomegaly. Mediastinum: Unchanged. Bones/joints: Unremarkable. IMPRESSION: Atelectasis versus infiltrate at the left lower lobe.
[2019-08-05] MEDS ORDERED: IOPAMIDOL-370 125ML BTL INJ ONE (00:09)
[2019-08-05] MEDS ORDERED: RX INFO: IV CONTRAST WAS GIVEN 1 EACH MISC MISCELLANE PRN (00:14)
--- NOTE | 2019-08-05 00:19 | CONS ---
CONSULTATION CHIEF COMPLAINT: Chest pain. This is a 64-year-old gentleman with history of coronary artery disease, status post prior angioplasty, who presented to [facility] complaining of chest pain. His chest discomfort started around 7 o'clock last night and has gradually gotten worse and he arrived in the emergency room around 11 o'clock this night. He describes it as a moderate to severe intensity pericardial chest pain without any shortness of breath or diaphoresis. The pain radiated to his back. His EKG shows ST- segment elevation in V3 and V4 with ST-segment depression in the 1 and aVL. He was brought to cardiac catheterization for emergent catheterization and primary angioplasty. I am seeing the patient in the catheterization laboratory technician. At the time of my evaluation, patient states that his chest discomfort is getting better after the initial intervention in the emergency room. PAST MEDICAL HISTORY: Significant for coronary artery disease status post angioplasty and hypertension. MEDICATIONS: I do not have a list of his medications. ALLERGIES: He denies any allergies. SOCIAL HISTORY: Negative for smoking, EtOH abuse, or drug abuse. REVIEW OF SYSTEMS: HEENT is unremarkable. Cardiac as described above. Respiratory negative. GI negative. ALLERGY/IMMUNOLOGY: Negative. SKIN: Negative. Musculoskeletal negative. Endocrine: Negative. Derm negative. Constitutional negative. Oncological negative. Rest of the system review is not relevant. EXAM: The patient is comfortable at rest. Vital signs are stable. Chest exam reveals good air entry bilaterally. Heart exam reveals first and second heart sounds. No gallop. No murmur. Abdomen is soft, nontender. Exam of extremities did not reveal any edema. Peripheral pulses are felt. Labs are pending at this time. I do not have his old records with me. ASSESSMENT: Acute anterior wall myocardial infarction. PLAN: Patient will undergo emergent cardiac catheterization with a view to performing angioplasty. He understands risks, benefits. MMODL / IJN: [id number] /
[2019-08-05 00:48] VITALS: BMI 29.5
--- NOTE | 2019-08-05 00:52 | CC ---
CARDIAC CATHETERIZATION REPORT INDICATION: Acute ischemic syndrome in a patient with known CAD status post prior multivessel angioplasty. PROCEDURE NOTE: After obtaining informed consent, left heart catheterization and coronary angiogram were performed via the right femoral artery using standard Alcira catheters. The patient tolerated the procedure well without any obvious immediate complications. A femoral angiogram was performed and Angio-Seal was deployed for hemostasis. Patient received moderate conscious sedation. Total sedation time was 12 minutes. FINDINGS: HEMODYNAMICS: Left ventricular end-diastolic pressure is 8 to 12 mm. There is no significant gradient across the aortic valve. LEFT VENTRICULOGRAM: Left ventriculogram is not performed. ANGIOGRAPHIC DATA: LEFT MAIN CORONARY ARTERY: Left main coronary artery is a normal-sized vessel and is free of stenosis. Divides into left anterior descending coronary artery and circumflex coronary artery. CIRCUMFLEX CORONARY ARTERY: Circumflex coronary artery shows a mild atherosclerotic plaque in its midportion. The proximal circumflex coronary artery is previously stented and the stent appears patent. LEFT ANTERIOR DESCENDING CORONARY ARTERY: LAD has been previously stented in its midportion and the stent appears patent. In the very distal LAD as it wraps around the apex of the heart, there is a 90 to 95% stenosis, but this vessel is very distal. The diagonal branch has an atherosclerotic plaque in the ostial portion and in its midportion, but this again is a small caliber vessel. RIGHT CORONARY ARTERY: Right coronary artery is a large dominant vessel that shows atherosclerotic plaque in its midportion. This was previously stented and the stent appears patent. The angiograms were compared to the previous angiogram done at the beginning of the year and they seem relatively unchanged. CONCLUSIONS: 1. Patent stents within the LAD, circ and the right coronary artery. 2. Very distal left anterior descending coronary artery has a significant stenosis, but this is a very small caliber vessel and patient was advised medical therapy. 3. The diagonal branch is a small caliber vessel, shows diffuse disease. PLAN: I reviewed angiographic data with the patient and advised him on medical therapy at this time. He understands and is in agreement with the plan. MMODL / IJN: [id number] /
[2019-08-05 02:28] VITALS: RESP 18
[2019-08-05] MEDS: SODIUM CHLORIDE 0.9% 1,000 ML IV SCH (05:49)
[2019-08-05] MEDS: CLOPIDOGREL 75 MG TAB PO SCH (09:34)
[2019-08-05] MEDS: ASPIRIN 81 MG PO SCH (09:34)
--- NOTE | 2019-08-05 11:51 | P.HPIM ---
History of Present Illness This is a pleasant 64 years old male with past medical history of coronary artery disease, status post stent placement in LAD congestive heart failure, dementia, GERD, hyperlipidemia, hypertension, pneumonia, kidney stones, sleep a pnea and Parkinson disease and Irritable bowel syndrome lewy body dementia, recurrent falls. Patient presents this time because of chest pain Vital signs stable and patient is afebrile. CBC, BMP and liver enzymes were unremarkable. Troponin is elevated 0.02 to 0.09. Chest x-ray showing atelect asis versus infiltrate in the left lower lung, however patient is a febrile, no leukocytosis, no overt respiratory symptoms. Most likely patient have atelectasis. He underwent cardiac cath by coroner forensic technician team and found to have patent LAD and it's stent as well as circumflex and right coronary arteries. Review of Systems CONSTITUTIONAL: No fever, no malaise, no fatigue. HEENT: No recent visual problems or hearing problems. Denied any sore throat. CARDIOVASCULAR: No orthopnea, PND, no palpitations, no syncope. PULMONARY: No shortness of breath, no cough, no hemoptysis. GASTROINTESTINAL: No diarrhea, no nausea, no vomiting, no abdominal pain. Normoactive bowel sounds. NEUROLOGICAL: No headaches, no weakness, no numbness. HEMATOLOGICAL: Denies any bleeding or petechiae. GENITOURINARY: Denies any burning micturition, frequency, or urgency. MUSCULOSKELETAL/RHEUMATOLOGICAL: Denies any joint pain, swelling, or any muscle pain. ENDOCRINE: Denies any polyuria or polydipsia. Past Medical History Past Medical History: Coronary Artery Disease (CAD), Chest Pain / Angina, Heart Failure, Dementia, GERD/Reflux, Hyperlipidemia, Hypertension, Myocardial Infarction ([place]), Neurologic Disorder, Pneumonia, Prostate Disorder, Renal Disease, Skin Disorder, Sleep Apnea/CPAP/BIPAP Additional Past Medical History / Comment(s): early parkinson's with essential tremors, "lewy body dementia" R nephrolithiasis with surgery, EDITH with no CPAP, Irritable Bowel Syndrome diarrhea off and on, pneumonia/bronchitis, BPH, blood in stool-EGD/colonoscopy were normal, past hiatal hernia(sx), past falls., kidney failure, Last Myocardial Infarction Date:: 06/09/13 History of Any Multi-Drug Resistant Organisms: None Reported Past Surgical History: Heart Catheterization, Heart Catheterization With Stent, Hernia Repair Additional Past Surgical History / Comment(s): 05/2013 stent to LAD and then a cardiac cath which showed stent patent, Recent R kidney stone removal, 03/19/15 Laparoscopic Elizabeth fundlaplication. SKIN GRAFTS CHEST & BACK FROM B[place]ETT AT 13 YRS OLD., COLONOSCOPY. EGD, L lazy eye surgery as toddler. Past Anesthesia/Blood Transfusion Reactions: No Reported Reaction Additional Past Anesthesia/Blood Transfusion Reaction / Comment(s): Pt received blood in 1967 without reaction. Date of Last Stent Placement:: 12/2017 Past Psychological History: Bipolar, Depression Smoking Status: Never smoker Past Alcohol Use History: None Reported Past Drug Use History: None Reported - Past Family History Mother Family Medical History: Liver Disease Additional Family Medical History / Comment(s): Mother was an alcoholic. She of cirrhosis of the liver at age 60yrs. Father Family Medical History: Cancer, Coronary Artery Disease (CAD), Myocardial Infarction ([place]) Additional Family Medical History / Comment(s): SKIN CA. Father of a [place] at age 65 yrs. Brother(s) Family Medical History: Cancer Additional Family Medical History / Comment(s): LEUKEMIA, LYMPH NODE CA AND MULTIPLE MYELOMA. Medications and Allergies Home Medications Medication Instructions Recorded Confirmed Type Nadolol 40 mg PO QAM 10/07/14 08/04/19 History buPROPion HCL [Wellbutrin XL] 300 mg PO QAM 10/07/14 08/04/19 History lamoTRIgine 150 mg PO BID 03/03/15 08/04/19 History Donepezil [Aricept] 10 mg PO BID 12/20/17 08/04/19 History Memantine HCl [Namenda] 5 mg PO BID 12/20/17 08/04/19 History Pramipexole Di-HCl [Mirapex] 1 mg PO HS 12/20/17 08/04/19 History Primidone [Mysoline] 150 mg PO BID 12/20/17 08/04/19 History QUEtiapine FUMARATE [SEROquel] 50 mg PO HS 12/20/17 08/04/19 History Sertraline [Zoloft] 150 mg PO DAILY 12/20/17 08/04/19 History Clopidogrel [Plavix] 75 mg PO DAILY #30 tab 12/24/17 08/04/19 Rx Pravastatin Sodium [Pravachol] 40 mg PO HS #30 tab 12/24/17 08/04/19 Rx Potassium Chloride ER [K-Dur 10] 10 meq PO DAILY #30 tab 03/10/18 08/04/19 Rx Zolpidem Tartrate [Ambien] 10 mg PO HS 12/10/18 08/04/19 History Doxazosin [Cardura] 4 mg PO HS 12/12/18 08/04/19 History Melatonin 10 mg PO HS 01/07/19 08/04/19 History Furosemide [Lasix] 40 mg PO BID #0 01/09/19 08/04/19 Rx Pantoprazole [Protonix] 40 mg PO AC-BRKFST #30 tablet.dr 01/09/19 08/04/19 Rx Acetaminophen [Tylenol] 1,000 mg PO DAILY PRN 03/27/19 08/04/19 History hydrALAZINE HCL 25 mg PO TID 03/27/19 08/04/19 History HYDROcodone/APAP 5-325MG [[place] 1 tab PO BID PRN 08/04/19 08/04/19 History 5-325] clonazePAM [KlonoPIN] 1 mg PO HS 08/04/19 08/04/19 History Allergies Allergy/AdvReac Type Severity Reaction Status Date / Time No Known Allergies Allergy Verified 08/04/19 23:21 Physical Exam Vitals: Vital Signs Temp Pulse Pulse Resp BP BP Pulse Ox 08/05/19 08:00 97.6 F 72 18 121/75 95 08/05/19 04:00 97.6 F 55 L 18 122/75 97 08/05/19 02:15 73 18 106/67 97 08/05/19 01:15 62 16 145/92 98 08/05/19 00:59 64 16 128/78 97 08/05/19 00:45 62 16 135/74 98 08/05/19 00:37 98.0 F 64 16 137/88 95 08/05/19 00:30 98.0 F 64 16 137/88 95 08/04/19 23:21 63 16 139/85 96 08/04/19 23:14 62 20 177/106 98 08/04/19 22:57 97.8 F 69 16 158/101 95 Intake and Output 09/15/19 09/16/19 09/16/19 22:59 06:59 14:59 Intake Total 358 Balance 358 Intake: Oral 358 Other: Voiding Method Urinal Weight 104.326 kg 106.1 kg GENERAL: The patient is alert and oriented x3, not in any acute distress. Well developed, well nourished. HEENT: Pupils are round and equally reacting to light. EOMI. No scleral icterus. No conjunctival pallor. Normocephalic, atraumatic. No pharyngeal erythema. No thyromegaly. CARDIOVASCULAR: S1 and S2 present. No murmurs, rubs, or gallops. PULMONARY: Chest is clear to auscultation, no wheezing or crackles. ABDOMEN: Soft, nontender, nondistended, normoactive bowel sounds. No palpable organomegaly. MUSCULOSKELETAL: No joint swelling or deformity. EXTREMITIES: No cyanosis, clubbing, or pedal edema. NEUROLOGICAL: Gross neurological examination did not reveal any focal deficits. SKIN: No rashes. Results CBC & Chem 7: 08/04/19 23:02 08/04/19 23:02 Labs: Abnormal Lab Results - Last 24 Hours (Table) 08/04/19 08/05/19 Range/Units 23:02 05:02 Hct 38.3 L (39.0-53.0) % RDW 16.2 H (11.5-15.5) % Troponin I 0.090 H* (0.000-0.034) ng/mL Thrombosis Risk Factor Assmnt - Choose All That Apply Any of the Below Risk Factors Present?: Yes Each Factor Represents 1 point: Obesity (BMI >25) Other Risk Factors: Yes Each Risk Factor Represents 2 Points: Age 61-74 years Thrombosis Risk Factor Assessment Total Risk Factor Score: 3 Thrombosis Risk Factor Assessment Level: Moderate Risk Assessment and Plan Assessment: Chest pain, rule out cardiac causes History of coronary artery disease status post stent in LAD in 2013 Chronic congestive heart failure Dementia Parkinson disease with Lewy body dementia Irritable bowel syndrome Recurrent falls History of kidney stones Hyperlipidemia Hypertension GERD Atelectasis of the left lung Plan: This is a pleasant 64 years old male who presents because of chest pain. We will do EKG and serial cardiac enzymes and call cardiology consult. Labs and medication were reviewed.. Continue same treatment. Continue with symptomatic treatment. Resume home medication. Monitor lytes and vitals. DVT and GI prophylaxis. Further recommendations of the clinical course of the patient DVT prophylaxis: Subcutaneous heparin GI Prophylaxis: Pepcid PT/OT: Pending Prognosis is guarded
--- NOTE | 2019-08-05 15:07 | P.PN ---
Subjective Progress Note Date: 08/05/19 This is a 64-year-old gentleman with history of coronary artery disease and prior angioplasty who presented to the hospital with symptoms of chest discomfort, his EKG suggestive of possible anterior lateral wall myocardial infarction and for this reason the patient was taken directly to the cardiac catheterization lab by Dr. Mireles. The cardiac catheterization revealed patent stents within the LAD, circumflex and right coronary artery. The very distal LAD has a significant stenosis however this is a very small caliber vessel and medical therapy was advised. The diagonal branch is a small-caliber vessel which shows diffuse disease. The decision was made to continue maximal medical therapy. Patient was seen and examined this morning, he denies any chest pain at present. His blood pressures 122/70 with a heart rate in the 50s to 60s, 97% on room air. Patient's initial troponin was 0.0-2, subsequent troponin 0.09, 0.13. We will add some to come and do an echocardiogram with Doppler study. Continue aspirin 81 mg daily, Plavix 75 mg daily. We will start the patient on a statin, and if blood pressure and heart rate tolerate we will also initiate a small dose beta florinda. No CHERELLE inhibitor at this time because of hypotension, if pressure continues to be stable we will consider the addition of a well. Objective - Vital Signs Vital signs: Vital Signs Temp 97.6 F 08/05/19 08:00 Pulse 72 08/05/19 08:00 Resp 18 08/05/19 08:00 BP 121/75 08/05/19 08:00 Pulse Ox 95 08/05/19 08:00 Intake & Output 08/04/19 08/05/19 08/05/19 18:59 06:59 18:59 Intake Total 200 358 Balance 200 358 Weight 106.1 kg Intake: IV 200 Oral 358 Other: Voiding Method Urinal Urinal - Exam PHYSICAL EXAMINATION: GENERAL: 64-year-old gentleman in no acute distress at the time of my examination HEENT: Head is atraumatic, normocephalic. Pupils equal, round. Sclera anicteric. Conjunctiva are clear. Mucous membranes of the mouth are moist. Neck is supple. There is no elevated jugular venous pressure. No carotid bruit is heard. HEART EXAMINATION: Heart S1, S2 normal. No murmur or gallop heard. CHEST EXAMINATION: Lungs are clear to auscultation and precussion. No chest wall tenderness is noted on palpation or with deep breathing. ABDOMEN: Soft, nontender. Bowel sounds are heard. No organomegaly noted. EXTREMITIES: 2+ peripheral pulses with no evidence of peripheral edema and no calf tenderness noted. Right groin soft, no evidence of any hematoma. NEUROLOGIC patient is awake, alert and oriented 3. . - Labs CBC & Chem 7: 08/04/19 23:02 08/04/19 23:02 Labs: Abnormal Lab Results - Last 24 Hours (Table) 08/04/19 08/05/19 08/05/19 Range/Units 23:02 05:02 11:13 Hct 38.3 L (39.0-53.0) % RDW 16.2 H (11.5-15.5) % Troponin I 0.090 H* 0.130 H* (0.000-0.034) ng/mL Assessment and Plan Plan: Assessment and plan #1 non-Q-wave MA, status post cardiac catheterization, medical therapy advised #2 known history of coronary artery disease with prior PCI #3 hypertension #4 hyperlipidemia Plan We will start the patient on a statin, continue aspirin and Plavix, obtain an ec hocardiogram with Doppler study. We will also add a small dose of beta florinda, and if the blood pressure tolerates consider the addition of an CHERELLE inhibitor from tomorrow. Further recommendations to follow. DNP note has been reviewed, I agree with a documented findings and plan of care. Patient was seen and examined.
[2019-08-05] MEDS ORDERED: HYDROcodone/APAP 5-325MG 1 EACH TAB PO PRN (18:22)
[2019-08-05] MEDS ORDERED: ACETAMINOPHEN TAB 500 MG TAB PO PRN (18:22)
[2019-08-05] MEDS ORDERED: MELATONIN 5 MG TABLET PO SCH (21:00)
[2019-08-05] MEDS ORDERED: clonazePAM 1 MG TAB PO SCH (21:00)
[2019-08-05] MEDS ORDERED: PRAVASTATIN SODIUM 40 MG TAB PO SCH (21:00)
[2019-08-05] MEDS ORDERED: QUEtiapine 50 MG TAB PO SCH (21:00)
[2019-08-05] MEDS ORDERED: PRAMIPEXOLE 1 MG TAB PO SCH (21:00)
[2019-08-05] MEDS ORDERED: DOXAZOSIN 4 MG TAB PO SCH (21:00)
[2019-08-05] MEDS: lamoTRIgine 100 MG TAB PO SCH (22:58)
[2019-08-05] MEDS: PRIMIDONE 50 MG TAB PO SCH ×2 (22:59→23:02)
[2019-08-05] MEDS: MEMANTINE 5 MG TAB PO SCH (23:00)
[2019-08-05] MEDS: hydrALAZINE HCL 25 MG TAB PO SCH (23:01)
[2019-08-05] MEDS: DONEPEZIL 10 MG TAB PO SCH (23:02)
[2019-08-05] MEDS: FUROSEMIDE 40 MG TAB PO SCH (23:04)
[2019-08-06 06:10] LABS: African American GFR (CKD) >90 (>60 ml/min/1.73 sqM); Anion Gap 9 mmol/L; Blood Urea Nitrogen 12 mg/dL (9-20); Calcium 8.9 mg/dL (8.4-10.2); Carbon Dioxide 25 mmol/L (22-30); Chloride 106 mmol/L (98-107); Glucose 102 mg/dL (74-99); Potassium 4.1 mmol/L (3.5-5.1); Sodium 140 mmol/L (137-145)
[2019-08-06] MEDS ORDERED: PANTOPRAZOLE 40 MG TABLET PO SCH (07:30)
--- NOTE | 2019-08-06 07:34 | ECHOF ---
Referral Reason:assess lvf MEASUREMENTS -------- HEIGHT: 182.9 cm WEIGHT: 105.7 kg BP: RVIDd: 3.5 cm (< 3.3) IVSd: 1.2 cm (0.6 - 1.1) LVIDd: 4.8 cm (3.9 - 5.3) LVPWd: 1.5 cm (0.6 - 1.1) IVSs: 1.6 cm LVIDs: 3.7 cm LVPWs: 1.5 cm LA Diam: 3.9 cm (2.7 - 3.8) LAESV Index (A-L): 28.11 ml/m Ao Diam: 3.6 cm (2.0 - 3.7) AV Cusp: 1.7 cm (1.5 - 2.6) LA Diam: 4.3 cm (2.7 - 3.8) MV EXCURSION: 20.824 mm (> 18.000) MV EF SLOPE: 65 mm/s (70 - 150) EPSS: 0.6 cm MV E Tan: 0.58 m/s MV DecT: 196 ms MV A Tan: 0.59 m/s MV E/A Ratio: 0.98 RAP: 5.00 mmHg RVSP: 21.36 mmHg FINDINGS -------- Sinus rhythm. This was a technically adequate study. The left ventricular size is normal. There is mild concentric left ventricular hypertrophy. Overa ll left ventricular systolic function is normal with, an EF between 55 - 60 %. The diastolic fillin g pattern is normal for the age of the patient 8.00. The right ventricle is normal in size. Normal LA size by volume 22+/-6 ml/m2. The right atrial size is normal. The aortic valve is trileaflet, and appears structurally normal. No aortic stenosis or regurgitation. The mitral valve leaflets are mildly thickened. Mild mitral regurgitation is present. Mild tricuspid regurgitation present. There is no evidence of pulmonary hypertension. The right v entricular systolic pressure, as measured by Doppler, is 21.36mmHg. Trace/mild (physiologic) pulmonic regurgitation. The aortic root size is normal. There is no pericardial effusion. CONCLUSIONS -------- 1. Sinus rhythm. 2. This was a technically adequate study. 3. The left ventricular size is normal. 4. There is mild concentric left ventricular hypertrophy. 5. Overall left ventricular systolic function is normal with, an EF between 55 - 60 %. 6. The diastolic filling pattern is normal for the age of the patient 8.00 7. Normal LA size by volume 22+/-6 ml/m2. 8. The aortic valve is trileaflet, and appears structurally normal. No aortic stenosis or regurgitati on. 9. The mitral valve leaflets are mildly thickened. 10. Mild mitral regurgitation is present. 11. Mild tricuspid regurgitation present. 12. There is no evidence of pulmonary hypertension. 13. Trace/mild (physiologic) pulmonic regurgitation. 14. The aortic root size is normal. 15. There is no pericardial effusion. AERIAL PHOTOGRAPH INTERPRETER: Mary Mtz RDCS
[2019-08-06] MEDS: ASPIRIN 81 MG PO SCH (08:25)
[2019-08-06] MEDS: FUROSEMIDE 40 MG TAB PO SCH (08:25)
[2019-08-06] MEDS: lamoTRIgine 100 MG TAB PO SCH (08:25)
[2019-08-06] MEDS: hydrALAZINE HCL 25 MG TAB PO SCH (08:25)
[2019-08-06] MEDS: CLOPIDOGREL 75 MG TAB PO SCH (08:25)
[2019-08-06] MEDS: DONEPEZIL 10 MG TAB PO SCH (08:25)
[2019-08-06] MEDS: MEMANTINE 5 MG TAB PO SCH (08:26)
[2019-08-06] MEDS ORDERED: METOPROLOL SUCCINATE (ER) 50 MG TAB.ER.24H PO SCH (09:00)
[2019-08-06] MEDS ORDERED: buPROPion XL 300 MG TAB.ER.24H PO SCH (09:00)
[2019-08-06] MEDS ORDERED: POTASSIUM CHLORIDE ER 10 MEQ TAB.ER.PRT PO SCH (09:00)
[2019-08-06] MEDS ORDERED: SERTRALINE 50 MG TAB PO SCH (09:00)
[2019-08-06] MEDS ORDERED: NADOLOL 20 MG TAB PO SCH (09:00)
[2019-08-06] MEDS: SODIUM CHLORIDE 0.9% 1,000 ML IV SCH (09:53)
--- NOTE | 2019-08-06 14:06 | P.PN ---
Subjective Progress Note Date: 08/06/19 This is a 64-year-old gentleman with history of coronary artery disease and prior angioplasty who presented to the hospital with symptoms of chest discomfort, his EKG suggestive of possible anterior lateral wall myocardial infarction and for this reason the patient was taken directly to the cardiac catheterization lab by Dr. Mireles. The cardiac catheterization revealed patent stents within the LAD, circumflex and right coronary artery. The very distal LAD has a significant stenosis however this is a very small caliber vessel and medical therapy was advised. The diagonal branch is a small-caliber vessel which shows diffuse disease. The decision was made to continue maximal medical therapy. Patient was seen and examined this morning, he denies any chest pain at present. His blood pressures 122/70 with a heart rate in the 50s to 60s, 97% on room air. Patient's initial troponin was 0.0-2, subsequent troponin 0.09, 0.13. We will add some to come and do an echocardiogram with Doppler study. Continue aspirin 81 mg daily, Plavix 75 mg daily. We will start the patient on a statin, and if blood pressure and heart rate tolerate we will also initiate a small dose beta florinda. No CHERELLE inhibitor at this time because of hypotension, if pressure continues to be stable we will consider the addition of a well. 08/06/2019 Patient seen and examined this morning, denies any chest pain, breathing is stable. Echo was performed which revealed a normal left ventricular systolic function. Blood pressure 130/80 with a heart rate in the 70s, 94% on room air. Sodium 140, potassium 4.1, BUN 12 and creatinine 0.8. Objective - Vital Signs Vital signs: Vital Signs Temp 98.1 F 08/06/19 08:00 Pulse 77 08/06/19 08:00 Resp 18 08/06/19 08:00 BP 131/81 08/06/19 08:00 Pulse Ox 94 L 08/06/19 08:00 Intake & Output 08/05/19 08/06/19 08/06/19 18:59 06:59 18:59 Intake Total 824 480 Output Total 300 300 Balance 524 -300 480 Weight 105.7 kg Intake: Oral 824 480 Output: Urine 300 300 Other: Voiding Method Urinal Urinal # Voids 0 1 - Exam PHYSICAL EXAMINATION: GENERAL: 64-year-old gentleman in no acute distress at the time of my examination HEENT: Head is atraumatic, normocephalic. Pupils equal, round. Sclera anicteric. Conjunctiva are clear. Mucous membranes of the mouth are moist. Neck is supple. There is no elevated jugular venous pressure. No carotid bruit is heard. HEART EXAMINATION: Heart S1, S2 normal. No murmur or gallop heard. CHEST EXAMINATION: Lungs are clear to auscultation and precussion. No chest wall tenderness is noted on palpation or with deep breathing. ABDOMEN: Soft, nontender. Bowel sounds are heard. No organomegaly noted. EXTREMITIES: 2+ peripheral pulses with no evidence of peripheral edema and no calf tenderness noted. Right groin soft, no evidence of any hematoma. NEUROLOGIC patient is awake, alert and oriented 3. . - Labs CBC & Chem 7: 08/04/19 23:02 08/06/19 05:07 Labs: Abnormal Lab Results - Last 24 Hours (Table) 08/05/19 08/06/19 Range/Units 11:13 05:07 Glucose 102 H (74-99) mg/dL Troponin I 0.130 H* (0.000-0.034) ng/mL Assessment and Plan Plan: Assessment and plan #1 non-Q-wave OR, status post cardiac catheterization, medical therapy advised #2 known history of coronary artery disease with prior PCI #3 hypertension #4 hyperlipidemia Plan From cardiology's perspective, patient may be able to be discharged home today. We will make a follow-up appointment in the office post discharge. DNP note has been reviewed, I agree with a documented findings and plan of care. Patient was seen and examined.
[2019-08-06 14:11] VITALS: BP 128/80; PULSE 74; TEMP 97.9
[2019-08-06] MEDS ORDERED: ATORVASTATIN 80 MG TAB PO SCH (21:00)
--- NOTE | 2019-08-06 22:05 | P.DS ---
Providers Date of admission: 08/04/19 23:35 Attending physician: Lashawn Bernal Consults: 08/05/19 10:19 Consult Physician Routine Consulting Provider: Almaz Vidal Consult Reason/Comments: cath on 08/04/19 Do you want consulting provider notified?: Already Contacted Primary care physician: [facility] Course: Diagnoses: Chest pain, with ST elevation in the anterior lateral lytes and elevated troponins. Status post cardiac cath showing patent coronary arteries Left lung atelectasis History of coronary artery disease status post stent in LAD in 2013 Chronic congestive heart failure Dementia Parkinson disease with Lewy body dementia Irritable bowel syndrome Recurrent falls History of kidney stones Hyperlipidemia Hypertension GERD Atelectasis of the left lung Hospital course: This is a pleasant 64 years old male with past medical history of coronary artery disease, status post stent placement in LAD, congestive heart failure, dementia, GERD, hyperlipidemia, hypertension, pneumonia, kidney stones, sleep apnea and Parkinson disease and Irritable bowel syndrome lewy body dementia, recurrent falls. Patient presents this time because of chest pain. On admission patient has elevated troponin 0.09 and 0.23, and EKG was suspicious for ST elevation in the renae-ateral leads. Relations Director evaluated the patient and He underwent cardiac catheterization revealed patent stents within the LAD, circumflex and right coronary artery. Relations Director recommended to continue with medical therapy. He's was started on statin and beta florinda (changed Nadolol to metoprolol on discharge) and to continue with aspirin and Plavix. Vital signs stable and patient is afebrile. CBC, BMP and liver enzymes were unremarkable. Chest x-ray showing atelectasis versus infiltrate in the left lower lung, however patient is a febrile, no leukocytosis, no overt respiratory symptoms. Most likely patient have atelectasis. On the day of discharge his chest pain is completely resolved as 0/10 in severity. No other symptoms. No dyspnea. No fever. No change in urine or bowel habits. No abdominal pain. No nausea vomiting. No headache or weakness. At baseline and normal. Get up and go test is normal. Patient was cleared for discharge by zinc furnace charger team Problems and management plan were discussed with the patient and he verbalized understanding and acceptance Patient was found stable and can be discharged home however he needs follow-up as an outpatient. pt agrees with appointment and timing made for him with his pcp and zinc furnace charger and states he will follow up Gen: patient is a AAOx3, no distress CVS: S1-S2, RRR, no murmur Lungs: B/L CTA, no wheezing Abdomen: soft, no distention, no tenderness, positive bowel sounds Extremity: no leg edema or induration Time spent more than 35 minutes Patient Condition at Discharge: Stable Plan - Discharge Summary Discharge Rx Participant: No New Discharge Prescriptions: New Aspirin 81 mg PO DAILY #30 chew Atorvastatin [Lipitor] 80 mg PO HS #30 tab Metoprolol Succinate (ER) [Toprol XL] 50 mg PO DAILY #30 tab.er.24h Continue buPROPion HCL [Wellbutrin XL] 300 mg PO QAM lamoTRIgine 150 mg PO BID Sertraline [Zoloft] 150 mg PO DAILY Primidone [Mysoline] 150 mg PO BID Memantine HCl [Namenda] 5 mg PO BID Donepezil [Aricept] 10 mg PO BID QUEtiapine FUMARATE [SEROquel] 50 mg PO HS Pramipexole Di-HCl [Mirapex] 1 mg PO HS Clopidogrel [Plavix] 75 mg PO DAILY #30 tab Potassium Chloride ER [K-Dur 10] 10 meq PO DAILY #30 tab Zolpidem Tartrate [Ambien] 10 mg PO HS Doxazosin [Cardura] 4 mg PO HS Melatonin 10 mg PO HS Pantoprazole [Protonix] 40 mg PO AC-BRKFST #30 tablet. Furosemide [Lasix] 40 mg PO BID #0 Acetaminophen [Tylenol] 1,000 mg PO DAILY PRN PRN Reason: Headache hydrALAZINE HCL 25 mg PO TID clonazePAM [KlonoPIN] 1 mg PO HS HYDROcodone/APAP 5-325MG [[place] 5-325] 1 tab PO BID PRN PRN Reason: Pain Discontinued Nadolol 40 mg PO QAM Pravastatin Sodium [Pravachol] 40 mg PO HS #30 tab Discharge Medication List buPROPion HCL [Wellbutrin XL] 300 mg PO QAM 10/07/14 [History] lamoTRIgine 150 mg PO BID 03/03/15 [History] Donepezil [Aricept] 10 mg PO BID 12/20/17 [History] Memantine HCl [Namenda] 5 mg PO BID 12/20/17 [History] Pramipexole Di-HCl [Mirapex] 1 mg PO HS 12/20/17 [History] Primidone [Mysoline] 150 mg PO BID 12/20/17 [History] QUEtiapine FUMARATE [SEROquel] 50 mg PO HS 12/20/17 [History] Sertraline [Zoloft] 150 mg PO DAILY 12/20/17 [History] Clopidogrel [Plavix] 75 mg PO DAILY #30 tab 12/24/17 [Rx] Potassium Chloride ER [K-Dur 10] 10 meq PO DAILY #30 tab 03/10/18 [Rx] Zolpidem Tartrate [Ambien] 10 mg PO HS 12/10/18 [History] Doxazosin [Cardura] 4 mg PO HS 12/12/18 [History] Melatonin 10 mg PO HS 01/07/19 [History] Furosemide [Lasix] 40 mg PO BID #0 01/09/19 [Rx] Pantoprazole [Protonix] 40 mg PO AC-BRKFST #30 tablet.dr 01/09/19 [Rx] Acetaminophen [Tylenol] 1,000 mg PO DAILY PRN 03/27/19 [History] hydrALAZINE HCL 25 mg PO TID 03/27/19 [History] HYDROcodone/APAP 5-325MG [[place] 5-325] 1 tab PO BID PRN 08/04/19 [History] clonazePAM [KlonoPIN] 1 mg PO HS 08/04/19 [History] Aspirin 81 mg PO DAILY #30 chew 08/06/19 [Rx] Atorvastatin [Lipitor] 80 mg PO HS #30 tab 08/06/19 [Rx] Metoprolol Succinate (ER) [Toprol XL] 50 mg PO DAILY #30 tab.er.24h 08/06/19 [Rx] Follow up Appointment(s)/Referral(s): Román Gutierrez DO [Primary Care Provider] - 08/07/19 (Please keep previous appointment with primary care provider. ) Deshawn Hernandez MD [STAFF PHYSICIAN] - 08/13/19 1:15 pm Patient Instructions/Handouts: *Surgery [facility] - After Heart Catheterization - Corporate Security Manager Instructions, Heart Healthy Diet (DC) Discharge Disposition: HOME SELF-CARE
== END 2019-08-06 15:51 | disposition home or self-care (01) | DRG 281 ==
LOC: EC 22:57 → 2SICU 23:35 → 3SCARD 08-05 00:30
PROVIDERS: ADMIT Hospitalist; ATTEND Hospitalist
PROC: 4A023N7 Measurement of Cardiac Sampling and Pressure, Left Heart, Percutaneous Approach (ICD-10-PCS; principal; 2019-08-05)
PROC: B2111ZZ Fluoroscopy of Multiple Coronary Arteries using Low Osmolar Contrast (ICD-10-PCS; 2019-08-05)
DX: I21.09 ST elevation (STEMI) myocardial infarction involving other coronary artery of anterior wall (principal); J98.11 Atelectasis; E78.5 Hyperlipidemia, unspecified; G31.83 Neurocognitive disorder with Lewy bodies; F32.9 Major depressive disorder, single episode, unspecified; G25.0 Essential tremor; G47.33 Obstructive sleep apnea (adult) (pediatric); I11.0 Hypertensive heart disease with heart failure; I25.10 Atherosclerotic heart disease of native coronary artery without angina pectoris; I25.2 Old myocardial infarction; I50.9 Heart failure, unspecified; K21.9 Gastro-esophageal reflux disease without esophagitis; K58.0 Irritable bowel syndrome with diarrhea; R29.6 Repeated falls; Z79.02 Long term (current) use of antithrombotics/antiplatelets; Z79.82 Long term (current) use of aspirin; Z79.899 Other long term (current) drug therapy; Z80.6 Family history of leukemia; Z80.7 Family history of other malignant neoplasms of lymphoid, hematopoietic and related tissues; Z81.1 Family history of alcohol abuse and dependence; F02.80 Dementia in other diseases classified elsewhere, unspecified severity, without behavioral disturbance, psychotic disturbance, mood disturbance, and anxiety; Z82.49 Family history of ischemic heart disease and other diseases of the circulatory system; Z87.442 Personal history of urinary calculi; Z95.5 Presence of coronary angioplasty implant and graft; Z91.81 History of falling; Z87.01 Personal history of pneumonia (recurrent); N40.0 Benign prostatic hyperplasia without lower urinary tract symptoms; N19 Unspecified kidney failure
CPT/HCPCS: 36415; 71045; 80048; 80053; 83735; 83880; 84484; 85025; 85610; 85730; 93005; 93306; 93458; 96372; 96374; 99291

== ENCOUNTER → 2020-01-23 | Outpatient (CLI) | payer MEDICARE ==
[2020-01-23 16:53] LABS: African American GFR (CKD) 67.3 (60.0-200.0); Anion Gap 9.5 mmol/L (4.00-12.00); BUN/Creat Ratio 10.77 Ratio (12.00-20.00); Calcium 9.1 mg/dL (8.7-10.3); Carbon Dioxide 27.5 mmol/L (21.6-31.8); Magnesium 2.1 mg/dL (1.5-2.4); Non-African American GFR(CKD) 58.1 (60.0-200.0); Potassium 4.2 mmol/L (3.5-5.5)
== END | disposition home or self-care (01) ==
LOC: LABWHC1 11:12
PROVIDERS: ATTEND Nurse Practitioner Adult Health
DX: I10 Essential (primary) hypertension (principal)
CPT/HCPCS: 36415; 80048; 83735

== ENCOUNTER → 2020-02-05 | Outpatient (CLI) | payer MEDICARE ==
[2020-02-05 18:26] LABS: African American GFR (CKD) 48.7 (60.0-200.0); Anion Gap 13.9 mmol/L (4.00-12.00); BUN/Creat Ratio 21.76 Ratio (12.00-20.00); Calcium 9.5 mg/dL (8.7-10.3); Carbon Dioxide 31.1 mmol/L (21.6-31.8); Potassium 3.5 mmol/L (3.5-5.5)
== END | disposition home or self-care (01) ==
LOC: LABWHC1 14:26
PROVIDERS: ATTEND Internal Medicine Interventional Cardiology
DX: N18.9 Chronic kidney disease, unspecified (principal)
CPT/HCPCS: 36415; 80048

== ENCOUNTER 2020-02-17 13:07 | Observation (INO) | payer MEDICARE ==
[2020-02-17] MEDS ORDERED: NITROGLYCERIN OINT 1 INCH/GM PACKET TOPICAL STA (13:36)
--- NOTE | 2020-02-17 13:41 | ED ---
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 No fevers chills no sweats no other modifying factors. MD Complaint: shortness of breath - Related Data Home Medications Medication Instructions Recorded Confirmed buPROPion HCL [Wellbutrin XL] 300 mg PO QAM 10/07/14 08/04/19 lamoTRIgine 150 mg PO BID 03/03/15 08/04/19 Donepezil [Aricept] 10 mg PO BID 12/20/17 08/04/19 Memantine HCl [Namenda] 5 mg PO BID 12/20/17 08/04/19 Pramipexole Di-HCl [Mirapex] 1 mg PO HS 12/20/17 08/04/19 Primidone [Mysoline] 150 mg PO BID 12/20/17 08/04/19 QUEtiapine FUMARATE [SEROquel] 50 mg PO HS 12/20/17 08/04/19 Sertraline [Zoloft] 150 mg PO DAILY 12/20/17 08/04/19 Zolpidem Tartrate [Ambien] 10 mg PO HS 12/10/18 08/04/19 Doxazosin [Cardura] 4 mg PO HS 12/12/18 08/04/19 Melatonin 10 mg PO HS 01/07/19 08/04/19 Acetaminophen [Tylenol] 1,000 mg PO DAILY PRN 03/27/19 08/04/19 hydrALAZINE HCL 25 mg PO TID 03/27/19 08/04/19 HYDROcodone/APAP 5-325MG [[place] 1 tab PO BID PRN 08/04/19 08/04/19 5-325] clonazePAM [KlonoPIN] 1 mg PO HS 08/04/19 08/04/19 Previous Rx's Medication Instructions Recorded Clopidogrel [Plavix] 75 mg PO DAILY #30 tab 12/24/17 Potassium Chloride ER [K-Dur 10] 10 meq PO DAILY #30 tab 03/10/18 Furosemide [Lasix] 40 mg PO BID #0 01/09/19 Pantoprazole [Protonix] 40 mg PO COLTBRKFST #30 tablet. 01/09/19 Aspirin 81 mg PO DAILY #30 chew 08/06/19 Atorvastatin [Lipitor] 80 mg PO HS #30 tab 08/06/19 Metoprolol Succinate (ER) [Toprol 50 mg PO DAILY #30 tab.er.24h 08/06/19 XL] Allergies Allergy/AdvReac Type Severity Reaction Status Date / Time No Known Allergies Allergy Verified 02/17/20 13:10 Review of Systems ROS Statement: Those systems with pertinent positive or pertinent negative responses have been documented in the HPI. ROS Other: All systems not noted in ROS Statement are negative. Past Medical History Past Medical History: Coronary Artery Disease (CAD), Chest Pain / Angina, Heart Failure, Dementia, GERD/Reflux, Hyperlipidemia, Hypertension, Myocardial Infarction ([place]), Neurologic Disorder, Pneumonia, Prostate Disorder, Renal Disease, Skin Disorder, Sleep Apnea/CPAP/BIPAP Additional Past Medical History / Comment(s): early parkinson's with essential tremors, "lewy body dementia" R nephrolithiasis with surgery, EDITH with no CPAP, Irritable Bowel Syndrome diarrhea off and on, pneumonia/bronchitis, BPH, blood in stool-EGD/colonoscopy were normal, past hiatal hernia(sx), past falls., kidney failure, Last Myocardial Infarction Date:: 06/09/13 History of Any Multi-Drug Resistant Organisms: None Reported Past Surgical History: Back Surgery, Heart Catheterization, Heart Catheterization With Stent, Hernia Repair Additional Past Surgical History / Comment(s): 05/2013 stent to LAD and then a cardiac cath which showed stent patent, Recent R kidney stone removal, 03/19/15 Laparoscopic Elizabeth fundlaplication. SKIN GRAFTS CHEST & BACK FROM BASSETT AT 13 YRS OLD., COLONOSCOPY. EGD, L [facility] eye surgery as toddler. Past Anesthesia/Blood Transfusion Reactions: No Reported Reaction Additional Past Anesthesia/Blood Transfusion Reaction / Comment(s): Pt received blood in 1967 without reaction. Date of Last Stent Placement:: 12/2017 Past Psychological History: Bipolar, Depression Smoking Status: Never smoker Past Alcohol Use History: None Reported Past Drug Use History: None Reported - Past Family History Mother Family Medical History: Liver Disease Additional Family Medical History / Comment(s): Mother was an alcoholic. She of cirrhosis of the liver at age 60yrs. Father Family Medical History: Cancer, Coronary Artery Disease (CAD), Myocardial Infarction ([place]) Additional Family Medical History / Comment(s): SKIN CA. Father of a [place] at age 65 yrs. Brother(s) Family Medical History: Cancer Additional Family Medical History / Comment(s): LEUKEMIA, LYMPH NODE CA AND MULTIPLE MYELOMA. General Exam - General Exam Comments Initial Comments: This is a well-developed well-nourished awake alert oriented times female Limitations: no limitations General appearance: alert, in no apparent distress, anxious Head exam: Present: atraumatic, normocephalic, normal inspection Eye exam: Present: normal appearance, PERRL, EOMI. Absent: scleral icterus, conjunctival injection, periorbital swelling ENT exam: Present: normal exam, mucous membranes moist Neck exam: Present: normal inspection. Absent: tenderness, meningismus, lymphadenopathy Respiratory exam: Present: normal lung sounds bilaterally. Absent: respiratory distress, wheezes, rales, rhonchi, stridor Cardiovascular Exam: Present: regular rate, normal rhythm, normal heart sounds. Absent: systolic murmur, diastolic murmur, rubs, gallop, clicks GI/Abdominal exam: Present: soft, normal bowel sounds. Absent: distended, tenderness, guarding, rebound, rigid Extremities exam: Present: normal inspection, full ROM, normal capillary refill. Absent: tenderness, pedal edema, joint swelling, calf tenderness Back exam: Present: normal inspection Neurological exam: Present: alert, oriented X3, CN II-XII intact Psychiatric exam: Present: normal affect, normal mood Skin exam: Present: warm, dry, intact, normal color. Absent: rash Course Vital Signs 02/17/20 02/17/20 13:10 14:00 Temperature 98.3 F Pulse Rate 97 87 Respiratory 18 18 Rate Blood Pressure 143/82 O2 Sat by Pulse 97 96 Oximetry - Reevaluation(s) Reevaluation #1: 02/17/20 14:14 Examination the patient finds that he is pain-free at this time. Medical Decision Making - Medical Decision Making I did discuss [employer] the patient as well as Dr. Chakraborty. Patient be admitted for evaluation by Dr. Hernandez from cardiology. The presentation is consistent with unstable angina. - Lab Data Result diagrams: 02/17/20 13:30 02/17/20 13:30 Lab Results 02/17/20 02/17/20 02/17/20 Range/Units 13:30 13:30 13:30 WBC 7.3 (3.8-10.6) k/uL RBC 4.42 (4.30-5.90) m/uL Hgb 12.9 L (13.0-17.5) gm/dL Hct 38.6 L (39.0-53.0) % MCV 87.3 (80.0-100.0) fL MCH 29.3 (25.0-35.0) pg MCHC 33.5 (31.0-37.0) g/dL RDW 17.9 H (11.5-15.5) % Plt Count 243 (150-450) k/uL Neutrophils % 76 % Lymphocytes % 13 % Monocytes % 7 % Eosinophils % 2 % Basophils % 0 % Neutrophils # 5.6 (1.3-7.7) k/uL Lymphocytes # 1.0 (1.0-4.8) k/uL Monocytes # 0.5 (0-1.0) k/uL Eosinophils # 0.1 (0-0.7) k/uL Basophils # 0.0 (0-0.2) k/uL Anisocytosis Slight PT 10.0 (9.0-12.0) sec INR 1.0 (<1.2) APTT 21.9 L (22.0-30.0) sec D-Dimer 0.46 (<0.60) mg/L FEU Sodium 139 (137-145) mmol/L Potassium 3.9 (3.5-5.1) mmol/L Chloride 103 (98-107) mmol/L Carbon Dioxide 24 (22-30) mmol/L Anion Gap 12 mmol/L BUN 28 H (9-20) mg/dL Creatinine 1.02 (0.66-1.25) mg/dL Est GFR (CKD-EPI)AfAm >90 (>60 ml/min/1.73 sqM) Est GFR (CKD-EPI)NonAf 78 (>60 ml/min/1.73 sqM) Glucose 150 H (74-99) mg/dL Plasma Lactic Acid Sudheer (0.7-2.0) mmol/L Calcium 9.2 (8.4-10.2) mg/dL Magnesium 2.2 (1.6-2.3) mg/dL Total Bilirubin 0.3 (0.2-1.3) mg/dL AST 31 (17-59) U/L ALT 45 (4-49) U/L Alkaline Phosphatase 87 (38-126) U/L Creatine Kinase 40 L (55-170) U/L Total Protein 7.2 (6.3-8.2) g/dL Albumin 4.2 (3.5-5.0) g/dL 02/16/20 Range/Units 13:30 WBC (3.8-10.6) k/uL RBC (4.30-5.90) m/uL Hgb (13.0-17.5) gm/dL Hct (39.0-53.0) % MCV (80.0-100.0) fL MCH (25.0-35.0) pg MCHC (31.0-37.0) g/dL RDW (11.5-15.5) % Plt Count (150-450) k/uL Neutrophils % % Lymphocytes % % Monocytes % % Eosinophils % % Basophils % % Neutrophils # (1.3-7.7) k/uL Lymphocytes # (1.0-4.8) k/uL Monocytes # (0-1.0) k/uL Eosinophils # (0-0.7) k/uL Basophils # (0-0.2) k/uL Anisocytosis PT (9.0-12.0) sec INR (<1.2) APTT (22.0-30.0) sec D-Dimer (<0.60) mg/L FEU Sodium (137-145) mmol/L Potassium (3.5-5.1) mmol/L Chloride (98-107) mmol/L Carbon Dioxide (22-30) mmol/L Anion Gap mmol/L BUN (9-20) mg/dL Creatinine (0.66-1.25) mg/dL Est GFR (CKD-EPI)AfAm (>60 ml/min/1.73 sqM) Est GFR (CKD-EPI)NonAf (>60 ml/min/1.73 sqM) Glucose (74-99) mg/dL Plasma Lactic Acid Sudheer 2.0 (0.7-2.0) mmol/L Calcium (8.4-10.2) mg/dL Magnesium (1.6-2.3) mg/dL Total Bilirubin (0.2-1.3) mg/dL AST (17-59) U/L ALT (4-49) U/L Alkaline Phosphatase (38-126) U/L Creatine Kinase (55-170) U/L Total Protein (6.3-8.2) g/dL Albumin (3.5-5.0) g/dL - EKG Data -: EKG Interpreted by Me EKG shows normal: sinus rhythm (Sinus rhythm with frequent unifocal PVCs rate was 89. Interval 166 QRS duration 106 QT since QTC 370/4) - Radiology Data Radiology results: report reviewed (I did review the imaging and report no acute findings.), image reviewed Critical Care Time Critical Care Time: Yes Critical Care Time: 34 minutes of critical care time which includes initial presentation with history physical labs x-rays multiple reevaluation of the patient to response to therapy discuss with the patient and admitting physician regarding findings admission orders documentation of the above Disposition Clinical Impression: Dyspnea on exertion, Unstable angina Disposition: ADMITTED IP TO THIS [facility] Condition: Fair Referrals: Román Gutierrez DO [Primary Care Provider] - 1-2 days
[2020-02-17 13:48] LABS: Anisocytosis Slight; Basophils % (A) 0 %; Eosinophils # (A) 0.1 k/uL (0-0.7); Eosinophils % (A) 2 %; HCT 38.6 % (39.0-53.0); HGB 12.9 gm/dL (13.0-17.5); Lymphocytes % (A) 13 %; MCH 29.3 pg (25.0-35.0); MCHC 33.5 g/dL (31.0-37.0); MCV 87.3 fL (80.0-100.0); Mean Platelet Volume 6.8; Monocytes # (A) 0.5 k/uL (0-1.0); Monocytes % (A) 7 %; Neutrophils # (A) 5.6 k/uL (1.3-7.7); Neutrophils % (A) 76 %; Platelet Count 243 k/uL (150-450); RBC 4.42 m/uL (4.30-5.90); RDW 17.9 % (11.5-15.5); WBC 7.3 k/uL (3.8-10.6)
[2020-02-17 13:58] LABS: ALT 45 U/L (4-49); AST 31 U/L (17-59); African American GFR (CKD) >90 (>60 ml/min/1.73 sqM); Albumin 4.2 g/dL (3.5-5.0); Alkaline Phosphatase 87 U/L (38-126); Anion Gap 12 mmol/L; Blood Urea Nitrogen 28 mg/dL (9-20); Calcium 9.2 mg/dL (8.4-10.2); Carbon Dioxide 24 mmol/L (22-30); Chloride 103 mmol/L (98-107); Creatine Kinase 40 U/L (55-170); Glucose 150 mg/dL (74-99); Magnesium 2.2 mg/dL (1.6-2.3); Non-African American GFR(CKD) 78 (>60 ml/min/1.73 sqM); Potassium 3.9 mmol/L (3.5-5.1); Sodium 139 mmol/L (137-145); Total Bilirubin 0.3 mg/dL (0.2-1.3); Total Protein 7.2 g/dL (6.3-8.2)
[2020-02-17 14:12] LABS: D-Dimer 0.46 mg/L FEU (<0.60); Partial Thromboplastin Time 21.9 sec (22.0-30.0)
--- NOTE | 2020-02-17 14:17 | XR ---
EXAMINATION TYPE: XR chest 1V portable DATE OF EXAM: 02/17/2020 Comparison: 08/04/2019 Clinical History: 64-year-old male difficulty breathing Findings: The heart is upper limits of normal in size. Mild atherosclerotic arch calcifications. Large patient body habitus casts some density over the lungs, especially peripherally on the right. No obvious cons olidation or sizable effusion. Impression: Exam limitations as above. No definite acute process.
[2020-02-17] MEDS ORDERED: HEPARIN SODIUM,PORCINE 5,000 UNIT/ML 1 ML VIAL IV ONE (14:20)
[2020-02-17] MEDS ORDERED: NITROGLYCERIN SL TABS 0.4 MG TAB SUBLINGUAL PRN (14:20)
[2020-02-17] MEDS ORDERED: ACETAMINOPHEN TAB 500 MG TAB PO PRN (14:28)
[2020-02-17] MEDS ORDERED: HYDROcodone/APAP 5-325MG 1 EACH TAB PO PRN (14:28)
[2020-02-17] MEDS ORDERED: HEPARIN SOD,PORK IN 0.45% NACL 25,000 UNIT in 0.45% NACL 1 250ML.BAG IV SCH (14:30)
[2020-02-17] MEDS: SODIUM CHLORIDE 0.9% 1,000 ML IV SCH (15:07)
[2020-02-17] MEDS: hydrALAZINE HCL 25 MG TAB PO SCH ×2 (15:52→21:29)
[2020-02-17] MEDS: NITROGLYCERIN OINT 1 INCH/GM PACKET TOPICAL SCH ×2 (17:05→23:16)
[2020-02-17] MEDS: FUROSEMIDE 80 MG TAB PO SCH (17:05)
[2020-02-17] MEDS ORDERED: ZOLPIDEM 10 MG TAB PO PRN (21:00)
[2020-02-17] MEDS ORDERED: clonazePAM 1 MG TAB PO SCH (21:00)
[2020-02-17] MEDS ORDERED: QUEtiapine 25 MG TAB PO SCH (21:00)
[2020-02-17] MEDS: MELATONIN 5 MG TABLET PO PRN (21:29)
[2020-02-17] MEDS: MEMANTINE 5 MG TAB PO SCH (21:29)
[2020-02-17] MEDS: ATORVASTATIN 80 MG TAB PO SCH (21:29)
[2020-02-17] MEDS: DOXAZOSIN 4 MG TAB PO SCH (21:30)
[2020-02-17] MEDS: lamoTRIgine 100 MG TAB PO SCH (21:30)
[2020-02-17] MEDS: PRIMIDONE 50 MG TAB PO SCH (21:30)
[2020-02-17] MEDS: PRAMIPEXOLE 1 MG TAB PO SCH (21:30)
[2020-02-17] MEDS: DONEPEZIL 10 MG TAB PO SCH (21:30)
--- NOTE | 2020-02-17 22:09 | P.HPIM ---
History of Present Illness H&P Date: 02/17/20 Chief Complaint: Chest pressure or shortness of breath History of presenting complaint: This is a pleasant 64-year-old patient of Dr. Gutierrez. Chronic stable medical conditions include cognitive impairment, GERD, hyperlipidemia, hypertension, early Parkinson's versus essential tremor, reported dementia, obstructive sleep apnea does not use CPAP, irritable bowel syndrome, BPH hiatal hernia. Has known coronary artery disease with stent. 4 over the patient has been progressively getting more and more short of breath. And feeling like a heavy pressure across the chest like elephant sitting. Symptoms became more progressively worse decided come to the hospital. Some perspiration. No dizziness no lightheadedness. Admitted for the same. No radiation to the neck or arm of the chest pressure. Review of systems: GEN.: Tired EYES: None HEENT: None NECK: None RESPIRATORY: As above CARDIOVASCULAR: As above GASTROINTESTINAL: None GENITOURINARY: Decreased urine stream MUSCULOSKELETAL: Joint pains LYMPHATICS: None HEMATOLOGICAL: None PSYCHIATRY: A bit forgetful NEUROLOGICAL: None Past medical history to include: Coronary artery disease with stent, cognitive impairment, GERD, hyperlipidemia, hypertension, Parkinson disease, BPH, obstructive sleep apnea does not use CPAP, hiatal hernia Elizabeth fundoplication depression Social history: lives with no smoking. Stopped drinking alcohol in 2004. Prior to that used to drink every day Physical examination: VITAL SIGNS: 98.3, 97, 18, 143/82, 97% on room air GENERAL: [BMI 30.8, propped up in bed a bit tired. EYES: Pupils equal. Conjunctiva normal. HEENT: External appearance of nose and ears normal, oral cavity grossly normal. NECK: JVD not raised; masses not palpable. HEART: First and second heart sounds are normal; no edema. LUNGS: Respiratory rate increased clear to auscultation. ABDOMEN: Soft, distended, some divarication of recti nontender, liver spleen not palpable, no masses palpable. MUSCULAR skeletal: Evidence of OA PSYCH: Alert and oriented x3; mood and affect normal. NEUROLOGICAL: Cranial nerves grossly intact; no facial asymmetry, power and sensation grossly intact. LYMPHATICS: No lymph nodes palpable in the axilla and neck INVESTIGATIONS, reviewed in the clinical context: White count 7.3 hemoglobin 12.9 platelets 243 potassium 3.9 creatinine 1.0 to ProBNP 71 d-dimer 0.46 EKG tracing personally reviewed by me-normal sinus rhythm with PVCs Chest x-ray film personally reviewed by me-poor inspiration no obvious infiltrate or vascular prominence Assessment: -Possible unstable angina and a patient known coronary artery disease, patient does not have much evidence of CHF. 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 Cardiac exam is negative. Cardiology will be consulted. Care was discussed with the patient question were answered. Past Medical History Past Medical History: Coronary Artery Disease (CAD), Chest Pain / Angina, Heart Failure, Dementia, GERD/Reflux, Hyperlipidemia, Hypertension, Myocardial Infarction ([place]), Neurologic Disorder, Pneumonia, Prostate Disorder, Renal Disease, Skin Disorder, Sleep Apnea/CPAP/BIPAP Additional Past Medical History / Comment(s): early parkinson's with essential tremors, "lewy body dementia" R nephrolithiasis with surgery, EDITH with no CPAP, Irritable Bowel Syndrome diarrhea off and on, pneumonia/bronchitis, BPH, blood in stool-EGD/colonoscopy were normal, past hiatal hernia(sx), past falls., kidney failure, Last Myocardial Infarction Date:: 06/09/13 History of Any Multi-Drug Resistant Organisms: None Reported Past Surgical History: Back Surgery, Heart Catheterization, Heart Catheterization With Stent, Hernia Repair Additional Past Surgical History / Comment(s): 05/2013 stent to LAD and then a cardiac cath which showed stent patent, Recent R kidney stone removal, 03/19/15 Laparoscopic Elizabeth fundlaplication. SKIN GRAFTS CHEST & BACK FROM BASSETT AT 13 YRS OLD., COLONOSCOPY. [facility], [facility]. Past Anesthesia/Blood Transfusion Reactions: No Reported Reaction Additional Past Anesthesia/Blood Transfusion Reaction / Comment(s): Pt received blood in 1967 without reaction. Date of Last Stent Placement:: 12/2017 Past Psychological History: Bipolar, Depression Additional Psychological History / Comment(s): Pt lives with his . He has depression but states medication for this is working. He is normally independent. Smoking Status: Never smoker Past Alcohol Use History: None Reported Additional Past Alcohol Use History / Comment(s): Pt quit drinking alcohol in 2004( drank almost on daily basis) Past Drug Use History: None Reported - Past Family History Mother Family Medical History: Liver Disease Additional Family Medical History / Comment(s): Mother was an alcoholic. She of cirrhosis of the liver at age 60yrs. Father Family Medical History: Cancer, Coronary Artery Disease (CAD), Myocardial Infarction ([place]) Additional Family Medical History / Comment(s): SKIN CA. Father of a [place] at age 65 yrs. Brother(s) Family Medical History: Cancer Additional Family Medical History / Comment(s): LEUKEMIA, LYMPH NODE CA AND MULTIPLE MYELOMA. Medications and Allergies Home Medications Medication Instructions Recorded Confirmed Type Primidone [Mysoline] 150 mg PO BID 12/20/17 02/17/20 History Potassium Chloride ER [K-Dur 10] 10 meq PO DAILY #30 tab 03/10/18 02/17/20 Rx Doxazosin [Cardura] 4 mg PO BID 12/12/18 02/17/20 History HYDROcodone/APAP 5-325MG [[place] 1 tab PO BID PRN 08/04/19 02/17/20 History 5-325] Atorvastatin [Lipitor] 80 mg PO HS #30 tab 08/06/19 02/17/20 Rx Metoprolol Succinate (ER) [Toprol 50 mg PO DAILY #30 tab.er.24h 08/06/19 02/17/20 Rx XL] Cyclobenzaprine [Flexeril] 5 mg PO BID 02/17/20 02/17/20 History Ibuprofen [Motrin] 800 mg PO TID PRN 02/17/20 02/17/20 History Memantine [Namenda] 10 mg PO BID 02/17/20 02/17/20 History Metolazone [Zaroxolyn] 2.5 mg PO DIRECTED 02/17/20 02/17/20 History Pramipexole Di-HCl [Mirapex] 1.5 mg PO HS 02/17/20 02/17/20 History Primidone [Mysoline] 100 mg PO DAILY@1200 02/17/20 02/17/20 History QUEtiapine FUMARATE [SEROquel] 300 mg PO HS 02/17/20 02/17/20 History clonazePAM [KlonoPIN] 0.5 mg PO HS 02/17/20 02/17/20 History lamoTRIgine [LaMICtal] 200 mg PO BID 02/17/20 02/17/20 History Allergies Allergy/AdvReac Type Severity Reaction Status Date / Time No Known Allergies Allergy Verified 02/17/20 14:31 Physical Exam Vitals: Vital Signs Temp Pulse Pulse Resp BP BP Pulse Ox 02/17/20 20:03 92 18 02/17/20 20:02 97.6 F 92 18 131/85 94 L 02/17/20 19:23 97 02/17/20 16:00 75 18 02/17/20 15:36 98.0 F 75 18 120/76 95 02/17/20 14:55 80 18 110/79 96 02/17/20 14:00 87 18 96 02/17/20 13:10 98.3 F 97 18 143/82 97 Intake and Output 02/17/20 02/17/20 02/17/20 06:59 14:59 22:59 Intake Total 356 Output Total 900 Balance -544 Intake: Oral 356 Output: Urine 900 Other: Voiding Method Urinal # Voids 1 Weight 108.862 kg Results CBC & Chem 7: 02/17/20 13:30 02/17/20 13:30 Labs: Abnormal Lab Results - Last 24 Hours (Table) 02/17/20 02/17/20 02/17/20 Range/Units 13:30 13:30 13:30 Hgb 12.9 L (13.0-17.5) gm/dL Hct 38.6 L (39.0-53.0) % RDW 17.9 H (11.5-15.5) % APTT 21.9 L (22.0-30.0) sec BUN 28 H (9-20) mg/dL Glucose 150 H (74-99) mg/dL Creatine Kinase 40 L (55-170) U/L Thrombosis Risk Factor Assmnt - Choose All That Apply Each Factor Represents 1 point: Obesity (BMI >25) Each Risk Factor Represents 3 Points: Family history of DVT/PE Thrombosis Risk Factor Assessment Total Risk Factor Score: 4 Thrombosis Risk Factor Assessment Level: Moderate Risk
[2020-02-17] MEDS ORDERED: HEPARIN SODIUM,PORCINE 5,000 UNIT/ML 1 ML VIAL IV PRN (22:45)
[2020-02-18 05:29] LABS: Cholesterol 120 mg/dL (<200); HDL Cholesterol 36 mg/dL (40-60); LDL Cholesterol,Calculated 64 mg/dL (0-99); Triglycerides 98 mg/dL (<150)
[2020-02-18] MEDS: NITROGLYCERIN OINT 1 INCH/GM PACKET TOPICAL SCH ×2 (06:26→11:43)
[2020-02-18] MEDS: PANTOPRAZOLE 40 MG TABLET PO SCH (06:26)
[2020-02-18] MEDS: DONEPEZIL 10 MG TAB PO SCH ×2 (08:15→21:09)
[2020-02-18] MEDS: ASPIRIN 81 MG PO SCH (08:15)
[2020-02-18] MEDS: POTASSIUM CHLORIDE ER 10 MEQ TAB.ER.PRT PO SCH (08:15)
[2020-02-18] MEDS: MEMANTINE 5 MG TAB PO SCH ×2 (08:15→21:08)
[2020-02-18] MEDS: PRIMIDONE 50 MG TAB PO SCH ×2 (08:15→21:09)
[2020-02-18] MEDS: METOPROLOL SUCCINATE (ER) 50 MG TAB.ER.24H PO SCH (08:15)
[2020-02-18] MEDS: lamoTRIgine 100 MG TAB PO SCH ×2 (08:15→21:08)
[2020-02-18] MEDS: CLOPIDOGREL 75 MG TAB PO SCH (08:15)
[2020-02-18] MEDS: hydrALAZINE HCL 25 MG TAB PO SCH ×3 (08:16→21:08)
[2020-02-18] MEDS: FUROSEMIDE 80 MG TAB PO SCH ×2 (08:19→17:10)
[2020-02-18] MEDS ORDERED: buPROPion XL 300 MG TAB.ER.24H PO SCH (09:00)
[2020-02-18] MEDS ORDERED: ASPIRIN 325 MG TAB PO SCH (09:00)
[2020-02-18] MEDS ORDERED: SERTRALINE 50 MG TAB PO SCH (09:00)
--- NOTE | 2020-02-18 13:15 | P.CRDCN ---
History of Present Illness Consult date: 02/18/20 Requesting physician: Pierce Chakraborty Consult reason: chest pain Chief complaint: Exertional shortness of breath History of present illness: This is a 64-year-old gentleman with history of coronary artery disease and prior PCI, hypertension, hyperlipidemia, nonsmoker, nondiabetic who follows with Dr. Menendez in the office. His most recent hospitalization was in July 2019 at which time he presented with an acute coronary syndrome, underwent a cardiac catheterization which revealed patent stents within the LAD circumflex and RCA. Very distal LAD had significant stenosis but it was a small caliber vessel and the patient was advised medical therapy at that time, patient also had a diagonal branch, small vessel which showed diffuse disease at that time. Patient also underwent an echocardiogram with Doppler study on that admission which revealed an ejection fraction of 55-60%. The patient presents to the hospital on this occasion with symptoms of exertional shortness of br eath, he denies any overt chest discomfort but states that with even minimal exertion he becomes very short of breath. He states that the symptoms have been going on for approximately one week in duration. Blood pressure 108/70 with a heart rate in the 80s. EKG on presentation here showed a normal sinus rhythm with occasional PVC. Chest x-ray did not reveal any acute process. Laboratory data was reviewed, white blood cell count 7.3, hemoglobin 12.9, platelet count 243. D-dimer 0.46, sodium 139, potassium 3.9, BUN 28, creatinine 1.0, troponins were negative 3. Past Medical History Past Medical History: Coronary Artery Disease (CAD), Chest Pain / Angina, Heart Failure, Dementia, GERD/Reflux, Hyperlipidemia, Hypertension, Myocardial Infarction (MD), Neurologic Disorder, Pneumonia, Prostate Disorder, Renal Disease, Skin Disorder, Sleep Apnea/CPAP/BIPAP Additional Past Medical History / Comment(s): early parkinson's with essential tremors, "lewy body dementia" R nephrolithiasis with surgery, EDITH with no CPAP, Irritable Bowel Syndrome diarrhea off and on, pneumonia/bronchitis, BPH, blood in stool-EGD/colonoscopy were normal, past hiatal hernia(sx), past falls., kidney failure, Last Myocardial Infarction Date:: 06/09/13 History of Any Multi-Drug Resistant Organisms: None Reported Past Surgical History: Back Surgery, Heart Catheterization, Heart Catheterization With Stent, Hernia Repair Additional Past Surgical History / Comment(s): 05/2013 stent to LAD and then a cardiac cath which showed stent patent, Recent R kidney stone removal, 03/19/15 Laparoscopic Elizabeth fundlaplication. SKIN GRAFTS CHEST & BACK FROM [place] AT 13 YRS OLD., COLONOSCOPY. EGD, L lazy eye surgery as toddler. Past Anesthesia/Blood Transfusion Reactions: No Reported Reaction Additional Past Anesthesia/Blood Transfusion Reaction / Comment(s): Pt received blood in 1967 without reaction. Date of Last Stent Placement:: 12/2017 Past Psychological History: Bipolar, Depression Additional Psychological History / Comment(s): Pt lives with his . He has depression but states medication for this is working. He is normally independent. Smoking Status: Never smoker Past Alcohol Use History: None Reported Additional Past Alcohol Use History / Comment(s): Pt quit drinking alcohol in 2004( drank almost on daily basis) Past Drug Use History: None Reported - Past Family History Mother Family Medical History: Liver Disease Additional Family Medical History / Comment(s): Mother was an alcoholic. She of cirrhosis of the liver at age 60yrs. Father Family Medical History: Cancer, Coronary Artery Disease (CAD), Myocardial Infarction (MD) Additional Family Medical History / Comment(s): SKIN CA. Father of a MD at age 65 yrs. Brother(s) Family Medical History: Cancer Additional Family Medical History / Comment(s): LEUKEMIA, LYMPH NODE CA AND MULTIPLE MYELOMA. Medications and Allergies Home Medications Medication Instructions Recorded Confirmed Type Primidone [Mysoline] 150 mg PO BID 12/20/17 02/17/20 History Potassium Chloride ER [K-Dur 10] 10 meq PO DAILY #30 tab 03/10/18 02/17/20 Rx Doxazosin [Cardura] 4 mg PO BID 12/12/18 02/17/20 History HYDROcodone/APAP 5-325MG [Purchase 1 tab PO BID PRN 08/04/19 02/17/20 History 5-325] Atorvastatin [Lipitor] 80 mg PO HS #30 tab 08/06/19 02/17/20 Rx Metoprolol Succinate (ER) [Toprol 50 mg PO DAILY #30 tab.er.24h 08/06/19 02/17/20 Rx XL] Cyclobenzaprine [Flexeril] 5 mg PO BID PRN 02/17/20 02/17/20 History Ibuprofen [Motrin] 800 mg PO TID PRN 02/17/20 02/17/20 History Memantine [Namenda] 10 mg PO BID 02/17/20 02/17/20 History Pramipexole Di-HCl [Mirapex] 1.5 mg PO HS 02/17/20 02/17/20 History QUEtiapine FUMARATE [SEROquel] 300 mg PO HS 02/17/20 02/17/20 History lamoTRIgine [LaMICtal] 200 mg PO BID 02/17/20 02/17/20 History Allergies Allergy/AdvReac Type Severity Reaction Status Date / Time No Known Allergies Allergy Verified 02/17/20 14:31 Physical Exam Vitals: Vital Signs Temp Pulse Pulse Resp BP BP Pulse Ox 02/18/20 08:00 98.1 F 83 16 106/71 96 02/18/20 04:00 97.9 F 82 18 111/63 92 L 02/18/20 02:10 88 84/54 02/18/20 02:04 85 103/61 02/18/20 00:00 98.1 F 92 18 100/55 91 L 02/17/20 20:03 92 18 02/17/20 20:02 97.6 F 92 18 131/85 94 L 02/17/20 19:23 97 02/17/20 16:00 75 18 02/17/20 15:36 98.0 F 75 18 120/76 95 02/17/20 14:55 80 18 110/79 96 02/17/20 14:00 87 18 96 02/17/20 13:10 98.3 F 97 18 143/82 97 Intake and Output 02/17/20 02/18/20 02/18/20 22:59 06:59 14:59 Intake Total 672.167 240 115.635 Output Total 900 425 Balance -227.833 -185 115.635 Intake: IV 240 Sodium Chloride 0.9% 1, 240 000 ml @ 20 mls/hr IV . Q24H [facility] Rx#:[id number] Intake, IV Titration 76.167 115.635 Amount Heparin Sod,Pork in 0.45% 76.167 115.635 NaCl 25,000 unit In 0.45 % NaCl 1 250ml.bag @ 9. 186 UNITS/KG/HR 10 mls/hr IV .Q24H [facility] Rx#: [id number] Oral 596 Output: Urine 900 425 Other: Voiding Method Urinal Urinal # Voids 1 Weight 110.2 kg PHYSICAL EXAMINATION: GENERAL: 64-year-old gentleman in no acute distress at the time of my examination HEENT: Head is atraumatic, normocephalic. Pupils equal, round. Sclera anicteric. Conjunctiva are clear. Mucous membranes of the mouth are moist. Neck is supple. There is no elevated jugular venous pressure. No carotid bruit is heard. HEART EXAMINATION: Heart S1, S2 normal. No murmur or gallop heard. CHEST EXAMINATION: Lungs are clear to auscultation and precussion. No chest wall tenderness is noted on palpation or with deep breathing. ABDOMEN: Soft, obese, nontender. Bowel sounds are heard. No organomegaly noted. EXTREMITIES: 2+ peripheral pulses with evidence of peripheral edema and no calf tenderness noted. NEUROLOGIC patient is awake, alert and oriented 3 . Results 02/17/20 13:30 02/17/20 13:30 Cardiac Enzymes 02/17/20 02/17/20 02/17/20 Range/Units 13: 13: 20:50 AST 31 (17-59) U/L Troponin I <0.012 <0.012 (0.000-0.034) ng/mL 02/18/20 Range/Units 02:04 AST (17-59) U/L Troponin I <0.012 (0.000-0.034) ng/mL Coagulation 02/17/20 02/17/20 02/18/20 Range/Units 13:30 20:50 05:02 PT 10.0 (9.0-12.0) sec APTT 21.9 L 27.7 55.1 H (22.0-30.0) sec Lipids 02/18/20 Range/Units 05:02 Triglycerides 98 (<150) mg/dL Cholesterol 120 (<200) mg/dL HDL Cholesterol 36 L (40-60) mg/dL CBC 02/17/20 Range/Units 13:30 WBC 7.3 (3.8-10.6) k/uL RBC 4.42 (4.30-5.90) m/uL Hgb 12.9 L (13.0-17.5) gm/dL Hct 38.6 L (39.0-53.0) % Plt Count 243 (150-450) k/uL Comprehensive Metabolic Panel 02/17/20 Range/Units 13:30 Sodium 139 (137-145) mmol/L Potassium 3.9 (3.5-5.1) mmol/L Chloride 103 (98-107) mmol/L Carbon Dioxide 24 (22-30) mmol/L BUN 28 H (9-20) mg/dL Creatinine 1.02 (0.66-1.25) mg/dL Glucose 150 H (74-99) mg/dL Calcium 9.2 (8.4-10.2) mg/dL AST 31 (17-59) U/L ALT 45 (4-49) U/L Alkaline Phosphatase 87 (38-126) U/L Total Protein 7.2 (6.3-8.2) g/dL Albumin 4.2 (3.5-5.0) g/dL Current Medications Generic Name Dose Route Start Last Admin Trade Name Freq PRN Reason Stop Dose Admin Acetaminophen 1,000 mg 02/17/20 14:28 Tylenol Tab PO DAILY PRN Headache Hydrocodone Bitart/Acetaminophen 1 each 02/17/20 14:28 Purchase 5-325 PO BID PRN Pain Aspirin 81 mg 02/18/20 09:00 02/18/20 08:15 Aspirin PO 81 mg DAILY [facility] Administration Atorvastatin Calcium 80 mg 02/17/20 21:00 02/17/20 21:29 Lipitor PO 80 mg HS [facility] Administration Bupropion HCl 300 mg 02/18/20 09:00 02/18/20 08:16 Wellbutrin Xl PO 300 mg QAM [facility] Administration Clonazepam 1 mg 02/17/20 21:00 02/17/20 21:29 Klonopin PO 1 mg HS [facility] Administration Clopidogrel Bisulfate 75 mg 02/18/20 09:00 02/18/20 08:15 Plavix PO 75 mg DAILY [facility] Administration Donepezil HCl 10 mg 02/17/20 21:00 02/18/20 08:15 Aricept PO 10 mg BID [facility] Administration Doxazosin Mesylate 4 mg 02/17/20 21:00 02/17/20 21:30 Cardura PO 4 mg HS [facility] Administration Furosemide 40 mg 02/17/20 17:30 03/31/20 08:19 Lasix PO 40 mg BID-W/MEALS [facility] Administration Hydralazine HCl 25 mg 02/17/20 16:00 02/18/20 08:16 Apresoline PO 25 mg TID [facility] Administration Sodium Chloride 1,000 mls @ 20 mls/hr 02/17/20 14:30 02/17/20 15:07 Saline 0.9% IV 20 mls/hr .Q24H [facility] Administration Heparin Sodium/Sodium Chloride 250 mls @ 10 mls/hr 02/17/20 14:30 02/18/20 07:25 25,000 unit/ Sodium Chloride IV 12.186 units/kg/hr .Q24H [facility] 13.266 mls/hr Titration Protocol 9.186 UNITS/KG/HR Lamotrigine 150 mg 02/17/20 21:00 02/18/20 08:15 Lamictal PO 150 mg BID [facility] Administration Melatonin 10 mg 02/17/20 21:00 02/17/20 21:29 Melatonin PO 10 mg HS PRN Administration Insomnia Memantine 5 mg 02/17/20 21:00 02/18/20 08:15 Namenda PO 5 mg BID [facility] Administration Metoprolol Succinate 50 mg 02/18/20 09:00 02/18/20 08:15 Toprol Xl PO 50 mg DAILY [facility] Administration Nitroglycerin 0.4 mg 02/17/20 14:20 02/18/20 02:04 Nitrostat SUBLINGUAL 0.4 mg Q5M PRN Administration Chest Pain Nitroglycerin 1 inch 02/17/20 18:00 02/18/20 06:26 Nitro-Bid Oint TOPICAL 1 inch Q6HR [facility] Administration Pantoprazole Sodium 40 mg 02/18/20 07:30 02/18/20 06:26 Protonix PO Not Given AC-BRKFST [facility] Potassium Chloride 10 meq 02/18/20 09:00 02/18/20 08:15 K-Dur 10 PO 10 meq DAILY [facility] Administration Pramipexole Dihydrochloride 1 mg 02/17/20 21:00 02/17/20 21:30 Mirapex PO 1 mg HS [facility] Administration Primidone 150 mg 02/17/20 21:00 02/18/20 08:15 Mysoline PO 150 mg BID [facility] Administration Quetiapine Fumarate 50 mg 02/17/20 21:00 02/17/20 21:29 Seroquel PO 50 mg HS [facility] Administration Sertraline HCl 150 mg 02/18/20 09:00 02/18/20 08:15 Zoloft PO 150 mg DAILY [facility] Administration Zolpidem Tartrate 10 mg 02/17/20 21:00 Ambien PO HS PRN Insomnia Intake and Output 02/17/20 02/18/20 02/18/20 22:59 06:59 14:59 Intake Total 672.167 240 115.635 Output Total 900 425 Balance -227.833 -185 115.635 Intake: IV 240 Sodium Chloride 0.9% 1, 240 000 ml @ 20 mls/hr IV . Q24H [facility] Rx#:[id number] Intake, IV Titration 76.167 115.635 Amount Heparin Sod,Pork in 0.45% 76.167 115.635 NaCl 25,000 unit In 0.45 % NaCl 1 250ml.bag @ 9. 186 UNITS/KG/HR 10 mls/hr IV .Q24H [facility] Rx#: [id number] Oral 596 Output: Urine 900 425 Other: Voiding Method Urinal Urinal # Voids 1 Weight 110.2 kg 02/17/20 13:30 02/17/20 13:30 EKG Interpretations (text) EKG shows a normal sinus rhythm with occasional PVC Assessment and Plan Plan: Assessment and plan #1 symptoms of exertional shortness of breath. Troponins negative 3. EKG shows normal sinus rhythm with occasional PVC. Patient had a cardiac catheterization performed in July of last year which revealed patent stents in the LAD, circumflex, and right coronary artery, patient had a significant stenosis in the very distal LAD, and it was felt to be a very small-caliber vessel. The diagonal branch showed diffuse disease. Medical therapy was advised at that time. #2 known history of coronary artery disease with prior PCI's #3 hypertension #4 hyperlipidemia Plan We will repeat an echocardiogram with Doppler study as well as a chest x-ray. Discontinue the IV heparin and start the patient on subcutaneous heparin. We will also request a consultation with pulmonary, patient follows with Dr. Ludwig as an outpatient. Further recommendations to follow. DNP note has been reviewed, I agree with a documented findings and plan of care. Patient was seen and examined.
--- NOTE | 2020-02-18 13:38 | XR ---
EXAMINATION TYPE: XR chest 2V DATE OF EXAM: 02/18/2020 COMPARISON: 02/17/2020 HISTORY: Shortness of breath TECHNIQUE: Frontal and lateral views of the chest are obtained. FINDINGS: Scattered senescent parenchymal changes noted. Hyperinflation compatible with COPD. No evidence for infiltrate. No evidence for atelectasis. Heart size is stable. Mediastinal structures are stable and grossly unremarkable. No evidence for hilar prominence. Degenerative changes dorsal spine. IMPRESSION: 1. No evidence for acute pulmonary disease.
[2020-02-18] MEDS ORDERED: RX INFO: IV CONTRAST WAS GIVEN 1 EACH MISC MISCELLANE PRN (19:05)
--- NOTE | 2020-02-18 19:05 | P.PN ---
Progress Note - Text Progress Note Date: 02/18/20 Chief Complaint: Chest pressure or shortness of breath History of presenting complaint: This is a pleasant 64-year-old patient of Dr. Gutierrez. Chronic stable medical conditions include cognitive impairment, GERD, hyperlipidemia, hypertension, early Parkinson's versus essential tremor, reported dementia, obstructive sleep apnea does not use CPAP, irritable bowel syndrome, BPH hiatal hernia. Has known coronary artery disease with stent. 4 over the patient has been progressively getting more and more short of breath. And feeling like a heavy pressure across the chest like elephant sitting. Symptoms became more progressively worse decided come to the hospital. Some perspiration. No dizziness no lightheadedness. Admitted for the same. No radiation to the neck or arm of the chest pressure. Today-laying in bed. No new issues. Seen by cardiology. Patient did have a cardiac catheterization July. Apparently no significant blockage at that time.. Review of systems: Was done for constitutional, cardiovascular, GI, pulmonary. relevant finding as above Active Medications Acetaminophen (Tylenol Tab) 1,000 mg PO DAILY PRN PRN Reason: Headache Hydrocodone Bitart/Acetaminophen ([place] 5-325) 1 each PO BID PRN PRN Reason: Pain Aspirin (Aspirin) 81 mg PO DAILY [facility] Last Admin: 02/18/20 08:15 Dose: 81 mg Documented by: Atorvastatin Calcium (Lipitor) 80 mg PO [facility] Last Admin: 02/17/20 21:29 Dose: 80 mg Documented by: Clopidogrel Bisulfate (Plavix) 75 mg PO DAILY [facility] Last Admin: 02/18/20 08:15 Dose: 75 mg Documented by: Donepezil HCl (Aricept) 10 mg PO BID [facility] Last Admin: 02/18/20 08:15 Dose: 10 mg Documented by: Doxazosin Mesylate (Cardura) 4 mg PO HS [facility] Last Admin: 02/17/20 21:30 Dose: 4 mg Documented by: Furosemide (Lasix) 40 mg PO BID-W/MEALS [facility] Last Admin: 02/18/20 17:10 Dose: 40 mg Documented by: Heparin Sodium (Porcine) (Heparin) 5,000 unit SQ Q12HR [facility] Hydralazine HCl (Apresoline) 25 mg PO TID [facility] Last Admin: 02/18/20 15:32 Dose: 25 mg Documented by: Sodium Chloride (Saline 0.9%) 1,000 mls @ 20 mls/hr IV .Q24H [facility] Last Admin: 02/17/20 15:07 Dose: 20 mls/hr Documented by: Lamotrigine (Lamictal) 150 mg PO BID [facility] Last Admin: 02/18/20 08:15 Dose: 150 mg Documented by: Melatonin (Melatonin) 10 mg PO HS PRN PRN Reason: Insomnia Last Admin: 02/17/20 21:29 Dose: 10 mg Documented by: Memantine (Namenda) 5 mg PO BID [facility] Last Admin: 02/18/20 08:15 Dose: 5 mg Documented by: Metoprolol Succinate (Toprol Xl) 50 mg PO DAILY [facility] Last Admin: 02/18/20 08:15 Dose: 50 mg Documented by: Nitroglycerin (Nitrostat) 0.4 mg SUBLINGUAL Q5M PRN PRN Reason: Chest Pain Last Admin: 02/18/20 02:04 Dose: 0.4 mg Documented by: Pantoprazole Sodium (Protonix) 40 mg PO AC-BRKFST [facility] Last Admin: 02/18/20 06:26 Dose: Not Given Documented by: Potassium Chloride (K-Dur 10) 10 meq PO DAILY [facility] Last Admin: 02/18/20 08:15 Dose: 10 meq Documented by: Pramipexole Dihydrochloride (Mirapex) 1 mg PO HS [facility] Last Admin: 02/17/20 21:30 Dose: 1 mg Documented by: Primidone (Mysoline) 150 mg PO BID [facility] Last Admin: 02/18/20 08:15 Dose: 150 mg Documented by: Quetiapine Fumarate (Seroquel) 300 mg PO [facility] Zolpidem Tartrate (Ambien) 10 mg PO HS PRN PRN Reason: Insomnia Physical examination: VITAL SIGNS: 97.7, 83, 16, 105/59, 92% on room air GENERAL: Propped up in bed. EYES: Pupils equal. Conjunctiva normal. HEENT: External appearance of nose and ears normal, oral cavity grossly normal. NECK: JVD not raised; masses not palpable. HEART: First and second heart sounds are normal; no edema. LUNGS: Respiratory rate increased clear to auscultation. ABDOMEN: Soft, distended, some divarication of recti nontender, liver spleen not palpable, no masses palpable. MUSCULAR skeletal: Evidence of OA PSYCH: Alert and oriented x3; mood and affect normal. INVESTIGATIONS, reviewed in the clinical context: White count 7.3 hemoglobin 12.9 platelets 243 potassium 3.9 creatinine 1.0 to ProBNP 71 d-dimer 0.46 EKG tracing personally reviewed by me-normal sinus rhythm with PVCs Chest x-ray film personally reviewed by me-poor inspiration no obvious infiltrate or vascular prominence Assessment: -Anterior chest wall pain and pressure. Not felt to be angina per cardiology. 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 Pulmonary has been consulted. Other medication treatment plan to continue. We'll order a computed tomography scan of the chest to rule out PE.
[2020-02-18] MEDS ORDERED: QUEtiapine 100 MG TAB PO SCH (21:00)
[2020-02-18] MEDS: HEPARIN SODIUM,PORCINE 5,000 UNIT/ML 1 ML VIAL SQ SCH (21:08)
[2020-02-18] MEDS: ATORVASTATIN 80 MG TAB PO SCH (21:08)
[2020-02-18] MEDS: DOXAZOSIN 4 MG TAB PO SCH (21:08)
[2020-02-18] MEDS: PRAMIPEXOLE 1 MG TAB PO SCH (21:08)
--- NOTE | 2020-02-18 21:10 | CT ---
EXAMINATION TYPE: CT chest angio for PE DATE OF EXAM: 02/18/2020 COMPARISON: 12/10/2018 HISTORY: Shortness of breath. CT DLP: 1095.8 mGycm Automated exposure control for dose reduction was used. CONTRAST: Performed with IV Contrast, patient injected with 160ml mL of Isovue 370. There are 3-D post processed images. FINDINGS: There is no pleural effusion. The lungs are clear of consolidation. There are no hilar masses. There is no mediastinal adenopathy. Thoracic aorta is atheromatous. Heart size is fairly normal. There is normal contrast opacification of the central pulmonary arteries. There are no filling defect s. There is suboptimal contrast density in the smaller branches of the pulmonary arteries. I see no d efinite filling defect. There is no thoracic aortic aneurysm or dissection. The bony thorax appears i ntact. IMPRESSION: No evidence of pulmonary embolism. Minimal subsegmental atelectasis in the posterior lung el. No adverse change compared to old exam.
[2020-02-18] MEDS: MELATONIN 5 MG TABLET PO PRN (21:14)
--- NOTE | 2020-02-18 21:20 | P.CNPUL ---
History of Present Illness Consult date: 02/18/20 Reason for consult: dyspnea History of present illness: We are consulted on this patient is a 64-year-old male with known history of EDITH, REM behavioral disorder, lower body dementia, coronary artery disease and bipolar disorder. We will consulted for increased shortness of breath. The patient was reporting that he was getting progressively more short of breath especially with activity. Breasts he does well. His pulse ox is around 96%. His chest x-ray is within normal limits. His FEV1 is at 85% of predicted which is also within normal limits. His diffusion capacity is at 59% predicted and this is based on the pulmonary function test from 12/18/2018. In fact, I saw this patient in my office on 02/07/2020 and seeing the patient for increased shortness of breath. The patient underwent a cardiac catheterization on 08/04/2019 and the patient was found to have patent stents to the LAD, circumflex and RCA. The patient also had a very distant LAD coronary artery disease that was stenotic but it was of a small caliber and he was advised medical therapy for that. The diagonal branch was also small caliber with diffuse disease and he was advised medical therapy for that. He underwent a echo cardiogram and 2018 and echo showed an ejection fraction of 55-60% and there was mild LVH, no significant valvular heart disease and no evidence of any significant pulmonary hypertension. I also reviewed the last chest x-ray from 08/04/2019 that showed some atelectasis in the left lower lobe. The patient continued to be short of breath and the patient was given increased dose of diuretics and currently is taking Lasix 80 mg twice a day which made him hypotensive and the patient was given Midrin every other day. I reviewed a series of blood and that the patient hadn't [facility]. Specifically the last 2, which were done on01/23/2020 and 02/05/2020, the creatinine came up from 0.8 up to 1.3 and later on to 1.7 without any GFR down to 48. The patient is orthostatic. The patient stands up and he gets quite dizzy and this was witnessed today in the office. At the same time is having some increased cough and congestion and some increased wheezing. No chest pain. No angina. No swelling lower extremities. The chest x-ray in the office was within normal limits. At that point, I gave this patient a prednisone burst taper although I was not actually sure that his symptoms were related to COPD exacerba tion. I also gave the patient recommendations to The Lasix to 40 Mg Once a Day. During this current admission, the patient is a negative troponin 3, CPKs of 40, renal function is within normal limits, coagulation profile is within normal limits, d-dimer is at 0.4, the troponin 3 was negative. ProBNP level is at 71. The white cell count is at 7.3. He was 12.9. Chest x-ray is within normal limits. EKG showing a normal sinus rhythm with premature ventricular complexes. Fortunately, his renal function is stable and has normalized compared to his last evaluation. Review of Systems Constitutional: Denies weight loss, denies fatigue, no night sweats, no fever, no chills. Cardiovascular:As noted in HPI.Multiple stents placed, previous HI, recent cardiac catheterization showed patent stents. History of diastolic congestive heart failure. Pulmonary: As noted in HPI.Mostly dyspnea on exertion. GI: Denies nausea vomiting abdominal pain Has history of irritable bowel syndrome. Genitourinary: Denies dysuria, frequency, or urgency. Neurologic: Denies weakness, confusion, dizziness, or numbness. Musculoskeletal: Denies weakness arthralgia or myalgia Skin: Denies any skin lesions or rashes. Endocrine: No polydipsia, no polyuria, no heat or cold sensitivity. Hematologic: No clotting bleeding or bruising Psychiatric: No symptoms of active depression. Past Medical History Past Medical History: Coronary Artery Disease (CAD), Chest Pain / Angina, Heart Failure, Dementia, GERD/Reflux, Hyperlipidemia, Hypertension, Myocardial Infarction (HI), Neurologic Disorder, Pneumonia, Prostate Disorder, Renal Disease, Skin Disorder, Sleep Apnea/CPAP/BIPAP Additional Past Medical History / Comment(s): early parkinson's with essential tremors, "lewy body dementia" R nephrolithiasis with surgery, EDITH with no CPAP, Irritable Bowel Syndrome diarrhea off and on, pneumonia/bronchitis, BPH, blood in stool-EGD/colonoscopy were normal, past hiatal hernia(sx), past falls., kidney failure, Last Myocardial Infarction Date:: 06/09/13 History of Any Multi-Drug Resistant Organisms: None Reported Past Surgical History: Back Surgery, Heart Catheterization, Heart Catheterization With Stent, Hernia Repair Additional Past Surgical History / Comment(s): 05/2013 stent to LAD and then a cardiac cath which showed stent patent, Recent R kidney stone removal, 03/19/15 Laparoscopic Leizabeth fundlaplication. SKIN GRAFTS CHEST & BACK FROM [place] AT 13 YRS OLD., COLONOSCOPY. EGD, L lazy eye surgery as toddler. Past Anesthesia/Blood Transfusion Reactions: No Reported Reaction Additional Past Anesthesia/Blood Transfusion Reaction / Comment(s): Pt received blood in 1967 without reaction. Date of Last Stent Placement:: 12/2017 Past Psychological History: Bipolar, Depression Additional Psychological History / Comment(s): Pt lives with his . He has depression but states medication for this is working. He is normally independent. Smoking Status: Never smoker Past Alcohol Use History: None Reported Additional Past Alcohol Use History / Comment(s): Pt quit drinking alcohol in 2004( drank almost on daily basis) Past Drug Use History: None Reported - Past Family History Mother Family Medical History: Liver Disease Additional Family Medical History / Comment(s): Mother was an alcoholic. She of cirrhosis of the liver at age 60yrs. Father Family Medical History: Cancer, Coronary Artery Disease (CAD), Myocardial Infarction (HI) Additional Family Medical History / Comment(s): SKIN CA. Father of a HI at age 65 yrs. Brother(s) Family Medical History: Cancer Additional Family Medical History / Comment(s): LEUKEMIA, LYMPH NODE CA AND MULTIPLE MYELOMA. Medications and Allergies Home Medications Medication Instructions Recorded Confirmed Type Primidone [Mysoline] 150 mg PO BID 12/20/17 02/17/20 History Potassium Chloride ER [K-Dur 10] 10 meq PO DAILY #30 tab 03/10/18 02/17/20 Rx Doxazosin [Cardura] 4 mg PO BID 12/12/18 02/17/20 History HYDROcodone/APAP 5-325MG [[place] 1 tab PO BID PRN 08/04/19 02/17/20 History 5-325] Atorvastatin [Lipitor] 80 mg PO HS #30 tab 08/06/19 02/17/20 Rx Metoprolol Succinate (ER) [Toprol 50 mg PO DAILY #30 tab.er.24h 08/06/19 02/17/20 Rx XL] Cyclobenzaprine [Flexeril] 5 mg PO BID PRN 02/17/20 02/17/20 History Ibuprofen [Motrin] 800 mg PO TID PRN 02/17/20 02/17/20 History Memantine [Namenda] 10 mg PO BID 02/17/20 02/17/20 History Pramipexole Di-HCl [Mirapex] 1.5 mg PO HS 02/17/20 02/17/20 History QUEtiapine FUMARATE [SEROquel] 300 mg PO HS 02/17/20 02/17/20 History lamoTRIgine [LaMICtal] 200 mg PO BID 02/17/20 02/17/20 History Allergies Allergy/AdvReac Type Severity Reaction Status Date / Time No Known Allergies Allergy Verified 02/17/20 14:31 Physical Exam Vitals: Vital Signs Temp Pulse Pulse Resp BP BP Pulse Ox 02/18/20 11:46 97.7 F 83 16 105/59 92 L 02/18/20 08:00 98.1 F 83 16 106/71 96 02/18/20 04:00 97.9 F 82 18 111/63 92 L 02/18/20 02:10 88 84/54 02/18/20 02:04 85 103/61 02/18/20 00:00 98.1 F 92 18 100/55 91 L 02/17/20 20:03 92 18 02/17/20 20:02 97.6 F 92 18 131/85 94 L 02/17/20 19:23 97 02/17/20 16:00 75 18 02/17/20 15:36 98.0 F 75 18 120/76 95 02/17/20 14:55 80 18 110/79 96 Intake and Output 02/17/20 02/18/20 02/18/20 22:59 06:59 14:59 Intake Total 672.167 240 355.635 Output Total 900 425 Balance -227.833 -185 355.635 Intake: IV 240 Sodium Chloride 0.9% 1, 240 000 ml @ 20 mls/hr IV . Q24H DELORES Rx#:[id number] Intake, IV Titration 76.167 115.635 Amount Heparin Sod,Pork in 0.45% 76.167 115.635 NaCl 25,000 unit In 0.45 % NaCl 1 250ml.bag @ 9. 186 UNITS/KG/HR 10 mls/hr IV .Q24H DELORES Rx#: [id number] Oral 596 240 Output: Urine 900 425 Other: Voiding Method Urinal Urinal # Voids 1 Weight 110.2 kg General Appearance no diaphoresis, no respiratory distress, speech not interrupted by breaths, no dyspnea, no pallor, not cachectic, well nourished, appears well HEENT no pursed lip breathing, no jugular venous distention, no mucous membrane cyanosis, no perioral cyanosis, mallampati classification: class 1 Chest no barrel chest, no retractions, no sternocleidomastoid muscle contractions, no supraclavicular retractions, no intercostal retractions, no prolonged expiratory wheezing, no decreased air movement, no rhonchi, no hyperinflation, (normal) adventitious sounds: rales / crackles: bilaterally: midlung el, decreased air movement Heart no right ventricular heave, no distant heart sounds, no s3 gallop, (normal) jugular vein: jugular venous distention: by 0cm, (normal) jugular vein GI bowel sounds: hyperactive (borborygmi), bowel sounds: diminished or absent Extremities no cyanosis, no clubbing, no edema Neurologic no decreased mental status, no somnolence, no confusion Assisstive Devices: ambulates with no assitive devices Gait and Mobility: gait WNL, full weight bearing Skin General Appearance normal, (normal) normal except as noted Results - Laboratory Findings CBC and BMP: 02/17/20 13:30 02/17/20 13:30 PT/INR, D-dimer PT 10.0 sec (9.0-12.0) 02/17/20 13:30 INR 1.0 (<1.2) 02/17/20 13:30 D-Dimer 0.46 mg/L FEU (<0.60) 02/17/20 13:30 Abnormal lab findings: Abnormal Labs 02/17/20 02/17/20 02/17/20 13:30 13:30 13:30 Hgb 12.9 L Hct 38.6 L RDW 17.9 H APTT 21.9 L BUN 28 H Glucose 150 H Creatine Kinase 40 L HDL Cholesterol 02/18/20 02/18/20 05:02 05:02 Hgb Hct RDW APTT 55.1 H BUN Glucose Creatine Kinase HDL Cholesterol 36 L - Diagnostic Findings Chest x-ray: image reviewed Assessment and Plan Plan: 1 dyspnea on exertion, without any underlying clear pulmonary cause. The patient was recently treated for symptoms of bronchitis and was given a Depo- Medrol shot and a prednisone burst taper. His chest x-ray within normal limits. He was found to have some degree of dehydration and he was asked to reduce his diuretics. Cardiac enzymes are normal. Cardiac catheterization was noted fro July 2019. His presentation could be related to stable angina. Cardiac enzymes are negative. ProBNP level was nonelevated. D-dimer is low. Chest x- ray is within normal limits. EKG is nonspecific. 2 obstructive sleep apnea syndrome this patient's sleep apnea is mild. His AHI 17. He is not tolerant to BiPAP therapy. 3 Lewy body dementia with behavioral disturbance 4 coronary arteriosclerosis Cardiac catheterization 08/04/2019 revealed patent stents to LAD RCA and circumflex and there was some distant stenosis in the LAD and diagonal branch that showed diffuse disease and he was offered medical treatment. 5 bipolar disorder currently on a combination of Seroquel, Wellbutrin, Lamictal and Zoloft 6 congestive heart failure inactive and stable. The patient's most recent echocardiogram at shown a preserved LV function with an ejection fraction of 55% without pulmonary hyp ertension or valvular heart disease.repeat echocardiogram that was done on 08/05/2019 showed preserved LV function without any significant changes in his LV function or valvular function. 7 BPH 8 hypertension 9 hyperlipidemia 10 acid reflux 11 nephrolithiasis Plan no evidence of any pulmonary limitation for the patient's shortness of breath. The patient was given a walk in the hallways and the patient maintain a pulse ox above 92% without any significant desaturation. The pulmonary workup did not indicate any clear cause to contribute to his shortness of breath. May benefit from an outpatient cardiac stress test to see if there is any limitation was exertion due to stable coronary artery disease.
[2020-02-18] MEDS: SODIUM CHLORIDE 0.9% 1,000 ML IV SCH (22:21)
[2020-02-19 04:24] VITALS: RESP 18
[2020-02-19] MEDS: PANTOPRAZOLE 40 MG TABLET PO SCH (06:19)
[2020-02-19] MEDS: FUROSEMIDE 80 MG TAB PO SCH (06:19)
[2020-02-19] MEDS: PRIMIDONE 50 MG TAB PO SCH (08:51)
[2020-02-19] MEDS: POTASSIUM CHLORIDE ER 10 MEQ TAB.ER.PRT PO SCH (08:51)
[2020-02-19] MEDS: lamoTRIgine 100 MG TAB PO SCH (08:51)
[2020-02-19] MEDS: CLOPIDOGREL 75 MG TAB PO SCH (08:51)
[2020-02-19] MEDS: hydrALAZINE HCL 25 MG TAB PO SCH ×2 (08:51→15:15)
[2020-02-19] MEDS: MEMANTINE 5 MG TAB PO SCH (08:51)
[2020-02-19] MEDS: METOPROLOL SUCCINATE (ER) 50 MG TAB.ER.24H PO SCH (08:51)
[2020-02-19] MEDS: HEPARIN SODIUM,PORCINE 5,000 UNIT/ML 1 ML VIAL SQ SCH (08:52)
[2020-02-19] MEDS: DONEPEZIL 10 MG TAB PO SCH (08:52)
[2020-02-19] MEDS: ASPIRIN 81 MG PO SCH (08:53)
--- NOTE | 2020-02-19 09:00 | ECHOF ---
Referral Reason:sob MEASUREMENTS -------- HEIGHT: 188.0 cm WEIGHT: 109.8 kg BP: 105/59 RVIDd: 4.0 cm (< 3.3) IVSd: 1.4 cm (0.6 - 1.1) LVIDd: 4.5 cm (3.9 - 5.3) LVPWd: 1.4 cm (0.6 - 1.1) IVSs: 2.3 cm LVIDs: 2.2 cm LVPWs: 2.2 cm LAESV Index (A-L): 28.36 ml/m Ao Diam: 3.8 cm (2.0 - 3.7) AV Cusp: 1.8 cm (1.5 - 2.6) MV EXCURSION: 18.959 mm (> 18.000) MV EF SLOPE: 79 mm/s (70 - 150) EPSS: 1.0 cm MV E Tan: 0.61 m/s MV DecT: 206 ms MV A Tan: 0.88 m/s MV E/A Ratio: 0.70 RAP: 5.00 mmHg RVSP: 16.65 mmHg FINDINGS -------- Sinus rhythm. This was a technically adequate study. The left ventricular size is normal. There is mild concentric left ventricular hypertrophy. Overa ll left ventricular systolic function is normal with, an EF between 55 - 60 %. The diastolic fillin g pattern is normal for the age of the patient 9.61. The right ventricle is mild to moderately enlarged. Normal LA size by volume 22+/-6 ml/m2. The right atrium was not well visualized. Interatrial and interventricular septum intact. The aortic valve is trileaflet, and appears structurally normal. No aortic stenosis or regurgitation. The mitral valve is normal. Mild mitral regurgitation is present. Mild tricuspid regurgitation present. There is no evidence of pulmonary hypertension. The right v entricular systolic pressure, as measured by Doppler, is 16.65mmHg. Trace/mild (physiologic) pulmonic regurgitation. The aortic root size is normal. IVC Not well visulized. There is no pericardial effusion. CONCLUSIONS -------- 1. There is mild concentric left ventricular hypertrophy. 2. Overall left ventricular systolic function is normal with, an EF between 55 - 60 %. 3. The diastolic filling pattern is normal for the age of the patient 9.61 4. The right ventricle is mild to moderately enlarged. 5. Normal LA size by volume 22+/-6 ml/m2. 6. The aortic valve is trileaflet, and appears structurally normal. No aortic stenosis or regurgitati on. 7. Mild mitral regurgitation is present. 8. Mild tricuspid regurgitation present. 9. There is no evidence of pulmonary hypertension. 10. Trace/mild (physiologic) pulmonic regurgitation. 11. IVC Not well visulized. 12. There is no pericardial effusion. KETTLE FRY COOK OPERATOR: Honey Roberson RDCS
[2020-02-19 11:16] VITALS: BP 102/65; PULSE 62; TEMP 97.7
--- NOTE | 2020-02-19 12:14 | P.PN ---
Subjective Progress Note Date: 02/19/20 This is a 64-year-old gentleman with history of coronary artery disease and prior PCI, hypertension, hyperlipidemia, nonsmoker, nondiabetic who follows with Dr. Menendez in the office. His most recent hospitalization was in July 2019 at which time he presented with an acute coronary syndrome, underwent a cardiac catheterization which revealed patent stents within the LAD circumflex and RCA. Very distal LAD had significant stenosis but it was a small caliber vessel and the patient was advised medical therapy at that time, patient also had a diagonal branch, small vessel which showed diffuse disease at that time. Patient also underwent an echocardiogram with Doppler study on that admi ssion which revealed an ejection fraction of 55-60%. The patient presents to the hospital on this occasion with symptoms of exertional shortness of breath, he denies any overt chest discomfort but states that with even minimal exertion he becomes very short of breath. He states that the symptoms have been going on for approximately one week in duration. Blood pressure 108/70 with a heart rate in the 80s. EKG on presentation here showed a normal sinus rhythm with occasional PVC. Chest x-ray did not reveal any acute process. Laboratory data was reviewed, white blood cell count 7.3, hemoglobin 12.9, platelet count 243. D-dimer 0.46, sodium 139, potassium 3.9, BUN 28, creatinine 1.0, troponins were negative 3. 02/19/2020 Patient was seen and examined this morning, doing well overall, denies any chest discomfort, patient does feel quite short of breath walking back from the bathroom. Dr. Jackson had a lengthy discussion with the patient explaining that this was all likely due to deconditioning. Patient was also seen in consultation by pulmonary service, who did not feel that there is any active pulmonary issue at this time. Hemodynamically he is stable. Objective - Vital Signs Vital signs: Vital Signs Temp 97.7 F 02/19/20 11:11 Pulse 62 02/19/20 11:11 Resp 18 02/19/20 11:11 BP 102/65 02/19/20 11:11 Pulse Ox 92 L 02/19/20 11:11 Intake & Output 02/18/20 02/19/20 02/19/20 18:59 06:59 18:59 Intake Total 499.635 40 240 Output Total 200 Balance 499.635 -160 240 Weight 110.8 kg Intake: IV 40 Sodium Chloride 0.9% 1, 40 000 ml @ 20 mls/hr IV . Q24H DELORES Rx#:[id number] Intake, IV Titration 115.635 Amount Heparin Sod,Pork in 0.45% 115.635 NaCl 25,000 unit In 0.45 % NaCl 1 250ml.bag @ 9. 186 UNITS/KG/HR 10 mls/hr IV .Q24H DELORES Rx#: [id number] Oral 384 240 Output: Urine 200 Other: Voiding Method Urinal Urinal Urinal # Voids 1 1 # Bowel Movements 1 - Exam PHYSICAL EXAMINATION: GENERAL: 64-year-old gentleman in no acute distress at the time of my examination HEENT: Head is atraumatic, normocephalic. Pupils equal, round. Sclera anicteric. Conjunctiva are clear. Mucous membranes of the mouth are moist. Neck is supple. There is no elevated jugular venous pressure. No carotid bruit is heard. HEART EXAMINATION: Heart S1, S2 normal. No murmur or gallop heard. CHEST EXAMINATION: Lungs are clear to auscultation and precussion. No chest wall tenderness is noted on palpation or with deep breathing. ABDOMEN: Soft, nontender. Bowel sounds are heard. No organomegaly noted. EXTREMITIES: 2+ peripheral pulses with evidence of peripheral edema and no calf tenderness noted. NEUROLOGIC patient is awake, alert and oriented 3 . - Labs CBC & Chem 7: 02/17/20 13:30 02/17/20 13:30 Assessment and Plan Plan: Assessment and plan #1 symptoms of exertional shortness of breath. Troponins negative 3. EKG shows normal sinus rhythm with occasional PVC. Patient had a cardiac catheterization performed in July of last year which revealed patent stents in the LAD, circumflex, and right coronary artery, patient had a significant stenosis in the very distal LAD, and it was felt to be a very small-caliber vessel. The diagonal branch showed diffuse disease. Medical therapy was advised at that time. #2 known history of coronary artery disease with prior PCI's #3 hypertension #4 hyperlipidemia Plan CTA of the chest was performed which was negative for pulmonary embolism. From cardiology's perspective, Dr. Jackson felt that the patient needs to increase his physical activity, he feels that the shortness of breath is related to deconditioning. Patient has been advised to be discharged home, and follow-up in the office. DNP note has been reviewed, I agree with a documented findings and plan of care. Patient was seen and examined.
--- NOTE | 2020-02-19 14:20 | P.PN ---
Subjective Progress Note Date: 02/19/20 We are consulted on this patient is a 64-year-old male with known history of EDITH, REM behavioral disorder, lower body dementia, coronary artery disease and bipolar disorder. We will consulted for increased shortness of breath. The patient was reporting that he was getting progressively more short of breath especially with activity. Breasts he does well. His pulse ox is around 96%. His chest x-ray is within normal limits. His FEV1 is at 85% of predicted which is also within normal limits. His diffusion capacity is at 59% predicted and this is based on the pulmonary function test from 12/18/2018. In fact, I saw this patient in my office on 02/07/2020 and seeing the patient for increased shortness of breath. The patient underwent a cardiac catheterization on 08/04/2019 and the patient was found to have patent stents to the LAD, circumflex and RCA. The patient also had a very distant LAD coronary artery disease that was stenotic but it was of a small caliber and he was advised medical therapy for that. The diagonal branch was also small caliber with diffuse disease and he was advised medical therapy for that. He underwent a echo cardiogram and 2018 and echo showed an ejection fraction of 55-60% and there was mild LVH, no significant valvular heart disease and no evidence of any significant pulmonary hypertension. I also reviewed the last chest x-ray from 08/04/2019 that showed some atelectasis in the left lower lobe. The patient continued to be short of breath and the patient was given increased dose of diuretics and currently is taking Lasix 80 mg twice a day which made him hypotensive and the patient was given Midrin every other day. I reviewed a series of blood and that the patient hadn't [facility]. Specifically the last 2, which were done on01/23/2020 and 02/05/2020, the creatinine came up from 0.8 up to 1.3 and later on to 1.7 without any GFR down to 48. The patient is orthostatic. The patient stands up and he gets quite dizzy and this was witnessed today in the office. At the same time is having some increased cough and congestion and some increased wheezing. No chest pain. No angina. No swelling lower extremities. The chest x-ray in the office was within normal limits. At that point, I gave this patient a prednisone burst taper although I was not actually sure that his symptoms were related to COPD exacerbation. I also gave the patient recommendations to The Lasix to 40 Mg Once a Day. During this current admission, the patient is a negative troponin 3, CPKs of 40, renal function is within normal limits, coagulation profile is within normal limits, d-dimer is at 0.4, the troponin 3 was negative. ProBNP level is at 71. The white cell count is at 7.3. He was 12.9. Chest x-ray is within normal limits. EKG showing a normal sinus rhythm with premature ventricular complexes. Fortunately, his renal function is stable and has normalized compared to his last evaluation. On 02/19/2020 patient seen in follow-up on selective care unit, still has episodes of exertional dyspnea, but no acute distress, medical point of chest pain, patient has been evaluated by cardiology, Karlos cardiac enzymes and troponins were negative, EKG on presentation showed normal sinus rhythm with occasional PVCs. CT chest has been reviewed showing no evidence of pulmonary embolism, and minimal subsegmental atelectasis in the posterior lung el. No cough, no rhonchi, no wheezing, no clear cut pulmonary cause for his shortness of breath. Hemodynamically patient has been stable. Cardiology has cleared the patient for discharge home with outpatient follow-up in the office Objective - Vital Signs Vital signs: Vital Signs Temp 97.7 F 02/19/20 11:11 Pulse 62 02/19/20 11:11 Resp 18 02/19/20 11:11 BP 102/65 02/19/20 11:11 Pulse Ox 92 L 02/19/20 11:11 Intake & Output 02/18/20 02/19/20 02/19/20 18:59 06:59 18:59 Intake Total 499.635 40 600 Output Total 200 Balance 499.635 -160 600 Weight 110.8 kg Intake: IV 40 Sodium Chloride 0.9% 1, 40 000 ml @ 20 mls/hr IV . Q24H DELORES Rx#:[id number] Intake, IV Titration 115.635 Amount Heparin Sod,Pork in 0.45% 115.635 NaCl 25,000 unit In 0.45 % NaCl 1 250ml.bag @ 9. 186 UNITS/KG/HR 10 mls/hr IV .Q24H DELORES Rx#: [id number] Oral 384 600 Output: Urine 200 Other: Voiding Method Urinal Urinal Urinal # Voids 1 1 # Bowel Movements 1 - Exam GENERAL EXAM: Alert, very pleasant, 64-year-old white male, on room air comfortable in no apparent distress. HEAD: Normocephalic/atraumatic. EYES: Normal reaction of pupils, equal size. Conjunctiva pink, sclera white. NOSE: Clear with pink turbinates. THROAT: No erythema or exudates. NECK: No masses, no JVD, no thyroid enlargement, no adenopathy. CHEST: No chest wall deformity. Symmetrical expansion. LUNGS: Equal air entry with no crackles, wheeze, rhonchi or dullness. CVS: Regular rate and rhythm, normal S1 and S2, no gallops, no murmurs, no rubs ABDOMEN: Soft, nontender. No hepatosplenomegaly, normal bowel sounds, no guarding or rigidity. EXTREMITIES: No clubbing, no edema, no cyanosis, 2+ pulses and upper and lower extremities. MUSCULOSKELETAL: Muscle strength and tone normal. SPINE: No scoliosis or deformity SKIN: No rashes CENTRAL NERVOUS SYSTEM: Alert and oriented -3. No focal deficits, tone is normal in all 4 extremities. PSYCHIATRIC: Alert and oriented -3. Appropriate affect. Intact judgment and insight. - Labs CBC & Chem 7: 02/17/20 13:30 02/17/20 13:30 Assessment and Plan Plan: Assessment: 1 dyspnea on exertion, without any underlying clear pulmonary cause. The patient was recently treated for symptoms of bronchitis and was given a Depo- Medrol shot and a prednisone burst taper. His chest x-ray within normal limits. He was found to have some degree of dehydration and he was asked to reduce his diuretics. Cardiac enzymes are normal. Cardiac catheterization was noted from July 2019. His presentation could be related to stable angina. Cardiac enzymes are negative. ProBNP level was nonelevated. D-dimer is low. Chest x- ray is within normal limits. EKG is nonspecific. 2 obstructive sleep apnea syndrome this patient's sleep apnea is mild. His AHI 17. He is not tolerant to BiPAP therapy. 3 Lewy body dementia with behavioral disturbance 4 coronary arteriosclerosis Cardiac catheterization 08/04/2019 revealed patent stents to LAD RCA and circumflex and there was some distant stenosis in the LAD and diagonal branch th at showed diffuse disease and he was offered medical treatment. 5 bipolar disorder currently on a combination of Seroquel, Wellbutrin, Lamictal and Zoloft 6 congestive heart failure inactive and stable. The patient's most recent echocardiogram at shown a preserved LV function with an ejection fraction of 55% without pulmonary hypertension or valvular heart disease.repeat echocardiogram that was done on 08/05/2019 showed preserved LV function without any significant changes in his LV function or valvular function. 7 BPH 8 hypertension 9 hyperlipidemia 10 acid reflux 11 nephrolithiasis Plan: perspective patient is clear for discharge home today, vital signs are stable, patient has been tolerating ambulation, still has some mild exertional dyspnea, but no other pulmonary complaints, no cough, no congestion, no wheezing, lung sounds are clear, he is on room air, no evidence of pulmonary embolism, no clear-cut evidence of pulmonary cause for his dyspnea. Patient has been cleared by cardiology for discharge home with outpatient follow-up. I performed a history & physical examination of the patient and discussed their management with my nurse practitioner, Deidra Dempsey. I reviewed the nurse practitioner's note and agree with the documented findings and plan of care. Lung sounds are positive for clear breath sounds. The findings and the impression was discussed with the patient. I attest to the documentation by the nurse practitioner. Time with Patient: Less than 30
--- NOTE | 2020-02-20 00:43 | P.DS ---
Providers Date of admission: 02/17/20 14:20 Attending physician: Pierce Chakraborty Consults: 02/17/20 14:20 Consult Physician Urgent Consulting Provider: Deshawn Hernandez Consult Reason/Comments: Angina, exertional dyspnea Do you want consulting provider notified?: Yes 02/18/20 12:46 Consult Physician Urgent Consulting Provider: Chioma Ludwig Consult Reason/Comments: shortness of breath Do you want consulting provider notified?: Yes Primary care physician: [facility] Hospital Course: Diagnoses: -Exertional dyspnea, mostly related to deconditioning. 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 Patient has been evaluated by both cardiology and pulmonary service with no clear cause found. Continue his heart or lung. His d-dimer is negative at 0.46 WNL, no leukocytosis and no fever, BMP and liver enzymes were unremarkable serial troponins were negative. Patient underwent cardiac catheterization on 08/04/2019 and found to have patent stents to the LAD, circumflex and RCA coronary arteries. When I saw the patient this morning he was lying in bed comfortable states that his baseline, he states to me that he work today and the whole weight of the medical mckeon [id number] with no exertional dyspnea however his concerns that way never he goes upstairs around 12 steps he got exertional dyspnea, I discussed with the patient if he wants to wait for physical therapy to evaluate him home patient declined and wanted to go home and follow up with his doctors as an outpatient. On the day of discharge patient denies other symptoms, no chest pain no abdominal pain no nausea vomiting, no change in urine or bowel habits, no fever Patient was cleared for discharge by both pulmonary and cardiology services Aspirin and Plavix was added by cardiology service, also his Lasix was increased from 40 twice a day up to 80 by mouth twice a day, upon my recommendation the bedside nurse double checked with the cardiology team about the date 6 dose and they confirmed to her the recommendation for patient to be discharged on Lasix 80 mg twice daily, prescription was sent to the pharmacy Patient also discharged on hydralazine his other blood pressure medication. Patient states that he was taken Seroquel and Aricept for 3 years with no problems and he has this medication at home Problems and management plan were discussed with the patient and he verbalized understanding and acceptance Patient was found stable and can be discharged home however he needs follow-up as an outpatient. Patient was instructed to follow up with PCP within one week and patient agrees, patient confirmed to me that he agrees with his appointments and timing with his PCP Dr. Gutierrez at sterile preparation technician Dr. Menendez Gen: patient is a AAOx3, no distress CVS: S1-S2, RRR, no murmur Lungs: B/L CTA, no wheezing Abdomen: soft, no distention, no tenderness, positive bowel sounds Extremity: no leg edema or induration Time spent more than 35 minutes Patient Condition at Discharge: Fair Plan - Discharge Summary Discharge Rx Participant: Yes New Discharge Prescriptions: New hydrALAZINE HCL [Apresoline] 25 mg PO TID #90 tab Donepezil [Aricept] 10 mg PO BID tab Aspirin 81 mg PO DAILY #30 chew Furosemide [Lasix] 40 mg PO BID-W/MEALS #120 tab Nitroglycerin Sl Tabs [Nitrostat] 0.4 mg SUBLINGUAL Q5M PRN #30 tab PRN Reason: Chest Pain Clopidogrel [Plavix] 75 mg PO DAILY #30 tab Pantoprazole [Protonix] 40 mg PO AC-BRKFST #14 tablet.dr Acetaminophen Tab [Tylenol] 1,000 mg PO DAILY PRN tab PRN Reason: Headache Continue Primidone [Mysoline] 150 mg PO BID Potassium Chloride ER [K-Dur 10] 10 meq PO DAILY #30 tab Doxazosin [Cardura] 4 mg PO BID HYDROcodone/APAP 5-325MG [[place] 5-325] 1 tab PO BID PRN PRN Reason: Pain Atorvastatin [Lipitor] 80 mg PO HS #30 tab Metoprolol Succinate (ER) [Toprol XL] 50 mg PO DAILY #30 tab.er.24h Cyclobenzaprine [Flexeril] 5 mg PO BID PRN PRN Reason: Muscle Pain lamoTRIgine [LaMICtal] 200 mg PO BID Memantine [Namenda] 10 mg PO BID Pramipexole Di-HCl [Mirapex] 1.5 mg PO HS QUEtiapine FUMARATE [SEROquel] 300 mg PO HS Discontinued Ibuprofen [Motrin] 800 mg PO TID PRN PRN Reason: Pain Discharge Medication List Primidone [Mysoline] 150 mg PO BID 12/20/17 [History] Potassium Chloride ER [K-Dur 10] 10 meq PO DAILY #30 tab 03/10/18 [Rx] Doxazosin [Cardura] 4 mg PO BID 12/12/18 [History] HYDROcodone/APAP 5-325MG [[place] 5-325] 1 tab PO BID PRN 08/04/19 [History] Atorvastatin [Lipitor] 80 mg PO HS #30 tab 08/06/19 [Rx] Metoprolol Succinate (ER) [Toprol XL] 50 mg PO DAILY #30 tab.er.24h 08/06/19 [Rx] Cyclobenzaprine [Flexeril] 5 mg PO BID PRN 02/17/20 [History] Memantine [Namenda] 10 mg PO BID 02/17/20 [History] Pramipexole Di-HCl [Mirapex] 1.5 mg PO HS 02/17/20 [History] QUEtiapine FUMARATE [SEROquel] 300 mg PO HS 02/17/20 [History] lamoTRIgine [LaMICtal] 200 mg PO BID 02/17/20 [History] Acetaminophen Tab [Tylenol] 1,000 mg PO DAILY PRN tab 02/19/20 [Rx] Aspirin 81 mg PO DAILY #30 chew 02/19/20 [Rx] Clopidogrel [Plavix] 75 mg PO DAILY #30 tab 02/19/20 [Rx] Donepezil [Aricept] 10 mg PO BID tab 02/19/20 [Rx] Furosemide [Lasix] 40 mg PO BID-W/MEALS #120 tab 02/19/20 [Rx] Nitroglycerin Sl Tabs [Nitrostat] 0.4 mg SUBLINGUAL Q5M PRN #30 tab 02/19/20 [Rx] Pantoprazole [Protonix] 40 mg PO AC-BRKFST #14 tablet. 02/19/20 [Rx] hydrALAZINE HCL [Apresoline] 25 mg PO TID #90 tab 02/19/20 [Rx] Follow up Appointment(s)/Referral(s): Román Gutierrez DO [Primary Care Provider] - 02/21/20 8:40 am (we recommend to check your blood tests with your doctors including youir kidney function test and electrolytes) Deshawn Hernandez MD [STAFF PHYSICIAN] - 02/28/20 2:15 pm Activity/Diet/Wound Care/Special Instructions: heart healthy diet activity is limited till you see your doctor we recommend to avoid (Viagra) or similar medications and follow up with your doctor Discharge Disposition: HOME SELF-CARE
== END 2020-02-18 14:20 | disposition home or self-care (01) ==
LOC: EC 13:07 → 3SCARD 14:20 → INTOOBSV 14:20 → 3SCARD 14:43 → UNDODISIN 02-19 17:47
PROVIDERS: ADMIT Hospitalist; ATTEND Hospitalist
DX: R06.09 Other forms of dyspnea (principal); F02.81 Dementia in other diseases classified elsewhere, unspecified severity, with behavioral disturbance; R07.9 Chest pain, unspecified; E78.5 Hyperlipidemia, unspecified; E86.0 Dehydration; F31.9 Bipolar disorder, unspecified; G47.33 Obstructive sleep apnea (adult) (pediatric); I11.0 Hypertensive heart disease with heart failure; I25.10 Atherosclerotic heart disease of native coronary artery without angina pectoris; I25.2 Old myocardial infarction; I50.9 Heart failure, unspecified; K21.9 Gastro-esophageal reflux disease without esophagitis; K58.9 Irritable bowel syndrome, unspecified; N20.0 Calculus of kidney; N40.0 Benign prostatic hyperplasia without lower urinary tract symptoms; Z79.02 Long term (current) use of antithrombotics/antiplatelets; Z79.82 Long term (current) use of aspirin; Z79.899 Other long term (current) drug therapy; G31.83 Neurocognitive disorder with Lewy bodies; I49.3 Ventricular premature depolarization; Z80.6 Family history of leukemia; Z80.7 Family history of other malignant neoplasms of lymphoid, hematopoietic and related tissues; Z81.1 Family history of alcohol abuse and dependence; Z82.49 Family history of ischemic heart disease and other diseases of the circulatory system; Z87.442 Personal history of urinary calculi; Z95.5 Presence of coronary angioplasty implant and graft; F02.80 Dementia in other diseases classified elsewhere, unspecified severity, without behavioral disturbance, psychotic disturbance, mood disturbance, and anxiety
CPT/HCPCS: 96376 ×2; 96366 ×2; 96372; 96365; 99291; 36415; 93005 ×2; 93306; 85379; 83880; 80061; 80053; 82550; 83605; 83735; 84484 ×2; 85025; 85610; 85730 ×2; 71045; 71046; 71275; G0378 ×2; J1644 ×3; Q9967

== ENCOUNTER → 2020-06-05 | Outpatient (CLI) | payer MEDICARE ==
--- NOTE | 2020-06-05 09:44 | CT ---
EXAMINATION TYPE: CT lumbar spine wo/w con DATE OF EXAM: 06/05/2020 COMPARISON: None HISTORY: follow up low back pain post lumbar fusion oct 2019 CT DLP: 4659.4 mGycm Automated exposure control for dose reduction was used. CONTRAST: CT scan of the lumbar is performed without and with IV Contrast, patient injected with 100 mL of Isov ue 300. Enhanced CT of the lumbar spine was performed. Bone and soft tissue window settings are submitted as well as coronal and sagittal reconstructions. L1-L2: Normal disc space height. No disc herniation protrusion or central stenosis. No facet joint arthropathy. No evidence for foraminal encroachment. L2-L3: Normal disc space height. No disc herniation protrusion or central stenosis. No facet joint arthropathy. No evidence for foraminal encroachment. L3-L4: Postoperative changes of lumbar fusion and laminectomy. Pedicular screws are in place with str eak artifact limiting evaluation. No obvious no recurrent disc seen with certainty. L4-L5: Vacuum disc noted. Postoperative changes of decompressive laminectomy with pedicular screws. E xtensive streak artifact renders this level nondiagnostic. L5-S1: Normal disc space height. No disc herniation protrusion or central stenosis. No facet joint arthropathy. No evidence for foraminal encroachment. IMPRESSION: Decompressive laminectomy and pedicular screw placement from L3 through L5 S1. Alignment is anatomic. There is extensive streak artifact resulting in exam limitation.
== END | disposition home or self-care (01) ==
LOC: RADCTMAIN 08:32
PROVIDERS: ATTEND Psychiatry & Neurology Neurology
DX: M54.5 Low back pain (principal); Z98.1 Arthrodesis status; M51.36 Other intervertebral disc degeneration, lumbar region
CPT/HCPCS: 72133; Q9967

== ENCOUNTER → 2020-07-08 | Outpatient (CLI) | payer MEDICARE ==
[2020-07-08 18:07] LABS: African American GFR (CKD) 91.8 (60.0-200.0); Anion Gap 8.9 mmol/L (4.00-12.00); Calcium 8.9 mg/dL (8.7-10.3); Carbon Dioxide 23.1 mmol/L (21.6-31.8); Non-African American GFR(CKD) 79.2 (60.0-200.0); Potassium 4.3 mmol/L (3.5-5.5)
== END | disposition home or self-care (01) ==
LOC: LABWHC1 08:06
PROVIDERS: ATTEND Nurse Practitioner Adult Health
DX: I11.0 Hypertensive heart disease with heart failure (principal); I25.10 Atherosclerotic heart disease of native coronary artery without angina pectoris; I50.32 Chronic diastolic (congestive) heart failure; E78.2 Mixed hyperlipidemia; Z51.81 Encounter for therapeutic drug level monitoring
CPT/HCPCS: 36415; 80048; 83735

== ENCOUNTER 2020-08-11 20:55 | Emergency (ER) | payer MEDICARE ==
[2020-08-11 21:03] VITALS: BP 158/98; PULSE 89; RESP 18; TEMP 98.5
--- NOTE | 2020-08-11 21:19 | ED ---
Male Urogenital HPI - General Chief complaint: Urogenital Stated complaint: Catheter Issue Source: patient Mode of arrival: ambulatory Limitations: no limitations - History of Present Illness Initial comments: 65yo male presenting to the ER for cc of pulled catheter half way out. Patient states he didn't indwelling Pulido catheter placed after his TURP procedure yesterday for prostate disease. He states that his urine was finally clearing of blood just prior to him pulling the catheter out now he states he has a light red tint to the urine. patient admits to pain. Denies fevers. Denies abdominal pain or additional complaints. Patient presented for replacement of catheter. - Related Data Home Medications Medication Instructions Recorded Confirmed Primidone [Mysoline] 150 mg PO BID 12/20/17 02/17/20 Doxazosin [Cardura] 4 mg PO BID 12/12/18 02/17/20 HYDROcodone/APAP 5-325MG [[place] 1 tab PO BID PRN 08/04/19 02/17/20 5-325] Cyclobenzaprine [Flexeril] 5 mg PO BID PRN 02/17/20 02/17/20 Memantine [Namenda] 10 mg PO BID 02/17/20 02/17/20 Pramipexole Di-HCl [Mirapex] 1.5 mg PO HS 02/17/20 02/17/20 QUEtiapine FUMARATE [SEROquel] 300 mg PO HS 02/17/20 02/17/20 lamoTRIgine [LaMICtal] 200 mg PO BID 02/17/20 02/17/20 Previous Rx's Medication Instructions Recorded Potassium Chloride ER [K-Dur 10] 10 meq PO DAILY #30 tab 03/10/18 Atorvastatin [Lipitor] 80 mg PO HS #30 tab 08/06/19 Metoprolol Succinate (ER) [Toprol 50 mg PO DAILY #30 tab.er.24h 08/06/19 XL] Acetaminophen Tab [Tylenol] 1,000 mg PO DAILY PRN tab 02/19/20 Aspirin 81 mg PO DAILY #30 chew 02/19/20 Clopidogrel [Plavix] 75 mg PO DAILY #30 tab 02/19/20 Donepezil [Aricept] 10 mg PO BID tab 02/19/20 Furosemide [Lasix] 40 mg PO BID-W/MEALS #120 tab 04/01/20 Nitroglycerin Sl Tabs [Nitrostat] 0.4 mg SUBLINGUAL Q5M PRN #30 tab 02/19/20 Pantoprazole [Protonix] 40 mg PO AC-BRKFST #14 tablet. 02/19/20 hydrALAZINE HCL [Apresoline] 25 mg PO TID #90 tab 02/19/20 Allergies Allergy/AdvReac Type Severity Reaction Status Date / Time No Known Allergies Allergy Verified 08/11/20 21:03 Review of Systems ROS Statement: Those systems with pertinent positive or pertinent negative responses have been documented in the HPI. ROS Other: All systems not noted in ROS Statement are negative. Past Medical History Past Medical History: Coronary Artery Disease (CAD), Chest Pain / Angina, Heart Failure, Dementia, GERD/Reflux, Hyperlipidemia, Hypertension, Myocardial Infarction (NH), Neurologic Disorder, Pneumonia, Prostate Disorder, Renal Disease, Skin Disorder, Sleep Apnea/CPAP/BIPAP Additional Past Medical History / Comment(s): early parkinson's with essential tremors, "lewy body dementia" R nephrolithiasis with surgery, EDITH with no CPAP, Irritable Bowel Syndrome diarrhea off and on, pneumonia/bronchitis, BPH, blood in stool-EGD/colonoscopy were normal, past hiatal hernia(sx), past falls., kidney failure, Last Myocardial Infarction Date:: 06/09/13 History of Any Multi-Drug Resistant Organisms: None Reported Past Surgical History: Back Surgery, Heart Catheterization, Heart Catheterization With Stent, Hernia Repair Additional Past Surgical History / Comment(s): 05/2013 stent to LAD and then a cardiac cath which showed stent patent, Recent R kidney stone removal, 03/19/15 Laparoscopic Elizabeth fundlaplication. SKIN GRAFTS CHEST & BACK FROM [place]T AT 13 YRS OLD., COLONOSCOPY. EGD, L lazy eye surgery as toddler. Past Anesthesia/Blood Transfusion Reactions: No Reported Reaction Additional Past Anesthesia/Blood Transfusion Reaction / Comment(s): Pt received blood in 1967 without reaction. Date of Last Stent Placement:: 12/2017 Past Psychological History: Bipolar, Depression Smoking Status: Never smoker Past Alcohol Use History: None Reported Past Drug Use History: None Reported - Past Family History Mother Family Medical History: Liver Disease Additional Family Medical History / Comment(s): Mother was an alcoholic. She of cirrhosis of the liver at age 60yrs. Father Family Medical History: Cancer, Coronary Artery Disease (CAD), Myocardial Infarction (NH) Additional Family Medical History / Comment(s): SKIN CA. Father of a NH at age 65 yrs. Brother(s) Family Medical History: Cancer Additional Family Medical History / Comment(s): LEUKEMIA, LYMPH NODE CA AND MULTIPLE MYELOMA. General Exam - General Exam Comments Initial Comments: General: The patient is awake and alert, in no distress, and does not appear acutely ill. Eye: Pupils are equal, round and reactive to light, extra-ocular movements are intact. No nystagmus. There is normal conjunctiva bilaterally. No signs of icterus. Cardiovascular: There is a regular rate and rhythm. No murmur, rub or gallop is appreciated. Respiratory: Lungs are clear to auscultation, respirations are non-labored, breath sounds are equal. No wheezes, stridor, rales, or rhonchi. Gastrointestinal: Soft, non-distended, non-tender abdomen without masses or organomegaly noted. There is no rebound or guarding present. Musculoskeletal: Normal ROM, no tenderness. Strength 5/5. Sensation intact. Pulses equal bilaterally 2+. Neurological: A&O x 3. CN II-XII intact grossly, There are no obvious motor or sensory deficits. Coordination appears grossly intact. Speech is normal. Skin: Skin is warm and dry and no rashes or lesions are noted. Psychiatric: Cooperative, appropriate mood & affect, normal judgment. Limitations: no limitations Course Vital Signs 08/11/20 21:00 Temperature 98.5 F Pulse Rate 89 Respiratory 18 Rate Blood Pressure 158/98 O2 Sat by Pulse 95 Oximetry Medical Decision Making - Medical Decision Making Pulido replaced, no meatus injury noted. Pulido functioning. Pt denies current pain. Patient is to contact urology tomorrow and schedule appointment for f/u. Patient discharged appearing well after discussing case with DR. Rodriguez Disposition Clinical Impression: Pulido catheter problem Disposition: HOME SELF-CARE Condition: Good Instructions (If sedation given, give patient instructions): Pulido Catheter Placement and Care (ED) Additional Instructions: Please use medication as discussed. Please follow-up with urology in the next 2 days.. Please return to emergency room if the symptoms increase or worsen or for any other concerns. Is patient prescribed a controlled substance at d/c from ED?: No Referrals: Román Gutierrez DO [Primary Care Provider] - 1-2 days Time of Disposition: 21:36
== END 2020-08-11 21:48 | disposition home or self-care (01) ==
LOC: EC 20:55
DX: T83.021A Displacement of indwelling urethral catheter, initial encounter (principal); I13.0 Hypertensive heart and chronic kidney disease with heart failure and stage 1 through stage 4 chronic kidney disease, or unspecified chronic kidney disease; N18.9 Chronic kidney disease, unspecified; I50.9 Heart failure, unspecified; N40.0 Benign prostatic hyperplasia without lower urinary tract symptoms; G47.33 Obstructive sleep apnea (adult) (pediatric); G20 Parkinson's disease; F31.9 Bipolar disorder, unspecified; I25.2 Old myocardial infarction; Z79.899 Other long term (current) drug therapy; Z99.89 Dependence on other enabling machines and devices
CPT/HCPCS: 51702; 99283

== ENCOUNTER 2021-03-10 11:59 | Observation (INO) | payer MEDICARE, OTHER ==
--- NOTE | 2021-03-10 12:26 | ED ---
General Adult HPI - General Chief complaint: Fall Stated complaint: Fall Time Seen by Provider: 03/10/21 12:06 Source: patient, EMS Mode of arrival: EMS Limitations: no limitations - History of Present Illness Initial comments: 66-year-old male with a complicated past medical history including early Parkinson's presents to the emergency room for a chief complaint of fall. Patient states he was at [employer] and he thinks he must of tripped over the c urb and fallen. Patient does not remember tripping. He does not know if he lost consciousness, however no lightheadedness or chest pain preceding the fall. He states he just suddenly "found himself on the ground." Patient states he is having neck pain and right upper neck shoulder pain. He also has a scrape on his right knee. Patient has no other complaints at this time including shortness of breath, chest pain, abdominal pain, nausea or vomiting, headache, or visual changes. - Related Data Home Medications Medication Instructions Recorded Confirmed Primidone [Mysoline] 200 mg PO BID 12/20/17 03/10/21 HYDROcodone/APAP 5-325MG [[place] 1 tab PO BID PRN 08/04/19 03/10/21 5-325] Cyclobenzaprine [Flexeril] 5 mg PO BID PRN 02/17/20 03/10/21 Memantine [Namenda] 10 mg PO BID 02/17/20 03/10/21 Pramipexole Di-HCl [Mirapex] 1.5 mg PO HS 02/17/20 03/10/21 Furosemide [Lasix] 40 mg PO BID 03/10/21 03/10/21 Ibuprofen [Motrin] 800 mg PO Q8H PRN 03/10/21 03/10/21 Pregabalin [Lyrica] 100 mg PO BID 03/10/21 03/10/21 QUEtiapine [SEROquel] 100 mg PO HS 03/10/21 03/10/21 Sertraline [Zoloft] 50 mg PO DAILY 03/10/21 03/10/21 clonazePAM [KlonoPIN] 0.5 mg PO HS 03/10/21 03/10/21 hydrALAZINE HCL [Apresoline] 25 mg PO BID 03/10/21 03/10/21 Previous Rx's Medication Instructions Recorded Atorvastatin [Lipitor] 80 mg PO HS #30 tab 08/06/19 Metoprolol Succinate (ER) [Toprol 50 mg PO DAILY #30 tab.er.24h 08/06/19 XL] Aspirin 81 mg PO DAILY #30 chew 02/19/20 Nitroglycerin Sl Tabs [Nitrostat] 0.4 mg SUBLINGUAL Q5M PRN #30 tab 02/19/20 Allergies Allergy/AdvReac Type Severity Reaction Status Date / Time No Known Allergies Allergy Verified 03/10/21 13:29 Review of Systems ROS Statement: Those systems with pertinent positive or pertinent negative responses have been documented in the HPI. ROS Other: All systems not noted in ROS Statement are negative. Past Medical History Past Medical History: Coronary Artery Disease (CAD), Chest Pain / Angina, Heart Failure, Dementia, GERD/Reflux, Hyperlipidemia, Hypertension, Myocardial Infarction ([place]), Neurologic Disorder, Pneumonia, Prostate Disorder, Renal Disease, Skin Disorder, Sleep Apnea/CPAP/BIPAP Additional Past Medical History / Comment(s): early parkinson's with essential tremors, "lewy body dementia" R nephrolithiasis with surgery, EDITH with no CPAP, Irritable Bowel Syndrome diarrhea off and on, pneumonia/bronchitis, BPH, blood in stool-EGD/colonoscopy were normal, past hiatal hernia(sx), past falls., kidney failure, Last Myocardial Infarction Date:: 06/09/13 History of Any Multi-Drug Resistant Organisms: None Reported Past Surgical History: Back Surgery, Heart Catheterization, Heart Cathet erization With Stent, Hernia Repair Additional Past Surgical History / Comment(s): 05/2013 stent to LAD and then a cardiac cath which showed stent patent, Recent R kidney stone removal, 03/19/15 Laparoscopic Elizabeth fundlaplication. SKIN GRAFTS CHEST & BACK FROM BASSETT AT 13 YRS OLD., COLONOSCOPY. EGD, L lazy eye surgery as toddler. Past Anesthesia/Blood Transfusion Reactions: No Reported Reaction Additional Past Anesthesia/Blood Transfusion Reaction / Comment(s): Pt received blood in 1967 without reaction. Date of Last Stent Placement:: 12/2017 Past Psychological History: Bipolar, Depression Smoking Status: Never smoker Past Alcohol Use History: None Reported Past Drug Use History: None Reported - Past Family History Mother Family Medical History: Liver Disease Additional Family Medical History / Comment(s): Mother was an alcoholic. She of cirrhosis of the liver at age 60yrs. Father Family Medical History: Cancer, Coronary Artery Disease (CAD), Myocardial Infarction (MO) Additional Family Medical History / Comment(s): SKIN CA. Father of a [place] at age 65 yrs. Brother(s) Family Medical History: Cancer Additional Family Medical History / Comment(s): LEUKEMIA, LYMPH NODE CA AND MULTIPLE MYELOMA. General Exam Limitations: no limitations General appearance: alert, in no apparent distress Head exam: Present: atraumatic, normocephalic, normal inspection Eye exam: Present: normal appearance, PERRL, EOMI. Absent: scleral icterus, conjunctival injection, periorbital swelling ENT exam: Present: normal exam, mucous membranes moist Neck exam: Present: tenderness (generalized midline neck tenderness). Absent: full ROM (c-collar in place) Respiratory exam: Present: normal lung sounds bilaterally. Absent: respiratory distress, wheezes Cardiovascular Exam: Present: regular rate, normal rhythm, normal heart sounds GI/Abdominal exam: Present: soft, normal bowel sounds. Absent: distended, tenderness, guarding, rebound, rigid Extremities exam: Present: other (strength 5/5 in EDSON, sensation intact, radial pulses 2+ bilat) Back exam: Absent: CVA tenderness (R), CVA tenderness (L), vertebral tenderness (no thoracic or lumbar spine tenderness) Neurological exam: Present: alert Course Vital Signs 03/10/21 12:01 Temperature 98.1 F Pulse Rate 52 L Respiratory 18 Rate Blood Pressure 200/97 O2 Sat by Pulse 97 Oximetry Medical Decision Making - Medical Decision Making Vitals are stable. Patient hypertensive likely secondary to pain. Patient does have midline neck tenderness. Patient feels that his right arm is weaker than his left. My physical exam findings do not elicit this. CBC CMP unremarkable. CT cervical spine shows no evident acute fracture or subluxation. However c- collar was not cleared because he feels weak in the right arm. At this time patient will be admitted for neck pain and sensation of right arm weakness and syncopal syncopal event. Orthopedics did accept this case as this this is a trauma admission. We will consult medicine and cardiology. - Lab Data Result diagrams: 03/10/21 12:37 03/10/21 13:30 Lab Results 03/10/21 03/10/21 03/10/21 Range/Units 12:37 12:37 13:30 WBC 4.7 (3.8-10.6) k/uL RBC 4.55 (4.30-5.90) m/uL Hgb 13.1 (13.0-17.5) gm/dL Hct 38.1 L (39.0-53.0) % MCV 83.7 (80.0-100.0) fL MCH 28.7 (25.0-35.0) pg MCHC 34.3 (31.0-37.0) g/dL RDW 16.1 H (11.5-15.5) % Plt Count 181 (150-450) k/uL MPV 7.6 Neutrophils % (Manual) 58 % Band Neuts % (Manual) 1 % Lymphocytes % (Manual) 23 % Monocytes % (Manual) 14 % Eosinophils % (Manual) 4 % Neutrophils # (Manual) 2.70 (1.3-7.7) k/uL Lymphocytes # (Manual) 1.08 (1.0-4.8) k/uL Monocytes # (Manual) 0.66 (0-1.0) k/uL Eosinophils # (Manual) 0.19 (0-0.7) k/uL Nucleated RBCs 0 (0-0) /100 WBC Manual Slide Review Performed Anisocytosis Slight PT 11.2 (9.0-12.0) sec INR 1.1 (<1.2) APTT 24.6 (22.0-30.0) sec Sodium 137 (137-145) mmol/L Potassium 4.0 (3.5-5.1) mmol/L Chloride 107 (98-107) mmol/L Carbon Dioxide 24 (22-30) mmol/L Anion Gap 6 mmol/L BUN 8 L (9-20) mg/dL Creatinine 0.65 L (0.66-1.25) mg/dL Est GFR (CKD-EPI)AfAm >90 (>60 ml/min/1.73 sqM) Est GFR (CKD-EPI)NonAf >90 (>60 ml/min/1.73 sqM) Glucose 99 (74-99) mg/dL Calcium 8.1 L (8.4-10.2) mg/dL Total Bilirubin 0.6 (0.2-1.3) mg/dL AST 34 (17-59) U/L ALT 23 (4-49) U/L Alkaline Phosphatase 79 (38-126) U/L Total Protein 6.5 (6.3-8.2) g/dL Albumin 3.5 (3.5-5.0) g/dL Disposition Clinical Impression: Syncope, Fall, Neck pain Disposition: ADMITTED IP TO THIS HOSP Referrals: Román Gutierrez DO [Primary Care Provider] - 1-2 days Time of Disposition: 14:30
--- NOTE | 2021-03-10 12:36 | CT ---
EXAMINATION TYPE: CT brain [facility] DATE OF EXAM: 03/10/2021 COMPARISON: None HISTORY: Fall CT DLP: 1435.[address] of the brain was performed. The ventricles, basal cisterns and sulci overlying the cerebral convexities demonstrate mild enlargem ent. There is no evidence for intracranial hemorrhage or sulcal effacement. There is decreased attenuatio n about the periventricular white matter and deep white matter of both cerebral hemispheres, compatib le with chronic small vessel ischemia. No mass effects are seen. If symptoms persist consider MRI. Osseous calvarium is intact. IMPRESSION: 1. Age related atrophic and chronic small vessel ischemic change without acute intracranial process seen at this time. CT Cervical Spine: Unenhanced CT of the cervical spine was performed with bone and soft tissue window settings submitted . Coronal and sagittal reconstruction is obtained. There is normal alignment and prevertebral soft tissues. No evidence for acute cervical fracture . Scattered degenerative disc disease and spondylosis. Biapical scarring. IMPRESSION: 1. No evidence for acute fracture or subluxation of the cervical spine.
[2021-03-10 12:56] LABS: Anisocytosis Slight; HCT 38.1 % (39.0-53.0); HGB 13.1 gm/dL (13.0-17.5); MCH 28.7 pg (25.0-35.0); MCHC 34.3 g/dL (31.0-37.0); MCV 83.7 fL (80.0-100.0); Mean Platelet Volume 7.6; Platelet Count 181 k/uL (150-450); RBC 4.55 m/uL (4.30-5.90); RDW 16.1 % (11.5-15.5); WBC 4.7 k/uL (3.8-10.6)
[2021-03-10 13:12] LABS: INR 1.1 (<1.2); Partial Thromboplastin Time 24.6 sec (22.0-30.0); Prothrombin Time 11.2 sec (9.0-12.0)
[2021-03-10 13:50] LABS: Band Neutrophils % 1 %; Eosinophils # (M) 0.19 k/uL (0-0.7); Lymphocytes # (M) 1.08 k/uL (1.0-4.8); Monocytes # (M) 0.66 k/uL (0-1.0); Neutrophils % (M) 58 %; Nucleated Red Blood Cells 0 /100 WBC (0-0); Total Cells Counted 100
[2021-03-10 14:02] LABS: ALT 23 U/L (4-49); African American GFR (CKD) >90 (>60 ml/min/1.73 sqM); Albumin 3.5 g/dL (3.5-5.0); Anion Gap 6 mmol/L; Blood Urea Nitrogen 8 mg/dL (9-20); Calcium 8.1 mg/dL (8.4-10.2); Carbon Dioxide 24 mmol/L (22-30); Chloride 107 mmol/L (98-107); Glucose 99 mg/dL (74-99); Non-African American GFR(CKD) >90 (>60 ml/min/1.73 sqM); Sodium 137 mmol/L (137-145); Total Bilirubin 0.6 mg/dL (0.2-1.3); Total Protein 6.5 g/dL (6.3-8.2)
[2021-03-10 14:05] LABS: AST 34 U/L (17-59); Alkaline Phosphatase 79 U/L (38-126)
--- NOTE | 2021-03-10 14:14 | XR ---
EXAMINATION TYPE: XR chest 1V portable DATE OF EXAM: 03/10/2021 HISTORY: Shortness of breath. COMPARISON: 02/18/2020 TECHNIQUE: Single view of the chest is submitted. FINDINGS: Demonstrated are scattered senescent parenchymal change. There is no evidence for focal infiltrate. The heart is stable. Hilar and mediastinal structures are within normal limits. Degenerative changes are seen of the dorsal spine. IMPRESSION: 1. Chronic changes without evidence for acute pulmonary disease.
[2021-03-10] MEDS ORDERED: HYDROmorphone 0.5 MG/0.5 ML SYRINGE IVP STA (14:23)
[2021-03-10] MEDS ORDERED: NALOXONE 0.4 MG/ML 1 ML VIAL IV PRN (14:32)
[2021-03-10] MEDS ORDERED: ONDANSETRON 4 MG/2 ML VIAL IVP PRN (14:32)
[2021-03-10] MEDS: HYDROmorphone 0.5 MG/0.5 ML SYRINGE IVP PRN ×2 (16:47→23:21)
[2021-03-10] MEDS: DEXAMETHASONE SOD PHOSPHATE 4 MG/ML 1 ML VIAL IV SCH ×3 (16:47→23:21)
[2021-03-10] MEDS ORDERED: CYCLOBENZAPRINE 5 MG TAB PO PRN (22:24)
[2021-03-10] MEDS ORDERED: HYDROcodone/APAP 5-325MG 1 EACH TAB PO PRN (22:24)
[2021-03-10] MEDS ORDERED: IBUPROFEN 800 MG TAB PO PRN (22:24)
--- NOTE | 2021-03-10 22:24 | MR ---
EXAMINATION TYPE: MR cervical spine wo con DATE OF EXAM: 03/10/2021 COMPARISON: None HISTORY: Neck pain, right arm weakness. Multiplanar multiecho imaging of the cervical spine was performed without contrast. Normal alignment. There is some degenerative disc space narrowing at C5-6. There is less severe narro wing of the other disc spaces. There is no compression fracture. There is small posterior disc bulgin g and herniation from C3 to C6. There is some facet arthropathy and endplate spur formation. There is a mild relative spinal stenosis at C3-4. The canal is narrowed to 6.5 mm. There is no evidence of ce rvical cord edema. The canal measures 7 mm at C5-6. On the T2 images there is abnormal increased signal in the amanda not changed compared to old MR scan o f 03/04/2017. I see no focal bone destruction. IMPRESSION: Mild multilevel spondylotic changes with small posterior disc herniations. Mild spinal stenosis at C3 -4 and C5-6 as above. No fracture. No cord edema. There is pontine increased signal not changed rosi red to exam 4 years ago and could relate to chronic ischemia or demyelinating disease. Pontine abnorm ality measures 2.5 x 1.3 cm.
[2021-03-10] MEDS ORDERED: clonazePAM 0.5 MG TAB PO SCH (22:30)
[2021-03-10] MEDS ORDERED: QUEtiapine 100 MG TAB PO SCH (22:30)
[2021-03-10] MEDS ORDERED: PRAMIPEXOLE 0.5 MG TAB PO SCH (22:30)
[2021-03-10] MEDS: MEMANTINE 10 MG TAB PO SCH (23:18)
[2021-03-11] MEDS: DEXAMETHASONE SOD PHOSPHATE 4 MG/ML 1 ML VIAL IV SCH ×3 (04:07→12:28)
[2021-03-11 04:48] LABS: Cholesterol 87 mg/dL (<200); HDL Cholesterol 19 mg/dL (40-60); LDL Cholesterol,Calculated 50 mg/dL (0-99); Triglycerides 89 mg/dL (<150)
--- NOTE | 2021-03-11 07:27 | P.PN ---
Progress Note - Text Progress Note Date: 03/11/21 Reviewed C spine MRI and CT scan. There is no fracture or dislocation noted. There is overall well maintained alignment of the C spine. There is stenosis noted at C3-4 as well as C4-5 and 5-6 which is moderate in nature. There is somewhat of pincer lesion at C3-4 due to anterior and posterior compression but no cord signal changes, no evidence of myelomalacia or demylenation in the cord. There is central pontine demylination which was read as old and no changes. There is C4-5 anterior listhesis that appears to be stable. We will evaluate the patient. Continue on decadron for now. Secondary survey for other orthopedic injuries. Medicine work up for syncope and medical issues related to fall.
[2021-03-11 07:55] VITALS: RESP 18; TEMP 97.3
[2021-03-11] MEDS ORDERED: FUROSEMIDE 20 MG TAB PO SCH (09:00)
[2021-03-11] MEDS ORDERED: PREGABALIN 100 MG CAP PO SCH (09:00)
[2021-03-11] MEDS ORDERED: hydrALAZINE HCL 25 MG TAB PO SCH (09:00)
[2021-03-11] MEDS ORDERED: METOPROLOL SUCCINATE (ER) 50 MG TAB.ER.24H PO SCH (09:00)
[2021-03-11] MEDS ORDERED: FUROSEMIDE 40 MG TAB PO SCH (09:00)
[2021-03-11] MEDS ORDERED: PRIMIDONE 50 MG TAB PO SCH (09:00)
[2021-03-11] MEDS ORDERED: SERTRALINE 50 MG TAB PO SCH (09:00)
[2021-03-11 09:18] VITALS: BP 134/80; PULSE 76
--- NOTE | 2021-03-11 10:12 | P.HPOR ---
History of Present Illness H&P Date: 03/11/21 Chief Complaint: neck pain 66-year-old male presents emergency department after taking a fall while he was at [employer]. The patient states that he is unsure of the events the fall as he just woke up on the ground. He complains of neck pain and head pain after this. Patient does state that in positive loss of consciousness but unknown blunt head trauma. He is not complaining of any head pain. He does complain of neck pain that seems to be in the posterior aspect of his neck near the cervical thoracic junction. The patient does have a history of neck pain and states that he is being treated outpatient by Dr. Kaur who was going to place injections into his neck in the next few days. The patient has had some upper and lower extremity issues in the past specifically in his legs he has had some lower extremity numbness and tingling which seems to be about the same as it was previously he is a previous history of a lumbar fusion that was done several years ago by an outside hospital [facility]. He states no surgeries or other injuries to his neck. He denies any numbness or tingling in his upper extremities. 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 He does complain of some right upper extremity weakness says it just seems different than before. He denies any new weakness in his lower extremities denies any new numbness or tingling in his lower extremities denies any bowel or bladder issues. He denies any perineal numbness or tingling at this time. He denies any fevers chills shortness of breath or chest pain at this time. Review of Systems 14 points review of systems completed and as stated in HPI, all other systems reviewed are negative. Past Medical History Past Medical History: Coronary Artery Disease (CAD), Chest Pain / Angina, Heart Failure, Dementia, GERD/Reflux, Hyperlipidemia, Hypertension, Myocardial Infarction (LA), Neurologic Disorder, Pneumonia, Prostate Disorder, Renal Disease, Skin Disorder, Sleep Apnea/CPAP/BIPAP Additional Past Medical History / Comment(s): early parkinson's with essential tremors, "lewy body dementia" R nephrolithiasis with surgery, EDITH with no CPAP, Irritable Bowel Syndrome diarrhea off and on, pneumonia/bronchitis, BPH, blood in stool-EGD/colonoscopy were normal, past hiatal hernia(sx), past falls., kidney failure, Last Myocardial Infarction Date:: 06/09/13 History of Any Multi-Drug Resistant Organisms: None Reported Past Surgical History: Back Surgery, Heart Catheterization, Heart Catheterization With Stent, Hernia Repair Additional Past Surgical History / Comment(s): 05/2013 stent to LAD and then a cardiac cath which showed stent patent, Recent R kidney stone removal, 03/19/15 Laparoscopic Elizabeth fundlaplication. SKIN GRAFTS CHEST & BACK FROM BASSETT AT 13 YRS OLD., COLONOSCOPY. [facility] Past Anesthesia/Blood Transfusion Reactions: No Reported Reaction Additional Past Anesthesia/Blood Transfusion Reaction / Comment(s): Pt received blood in 1967 without reaction. Date of Last Stent Placement:: 12/2017 Past Psychological History: Bipolar, Depression Additional Psychological History / Comment(s): Pt lives with his . He has depression but states medication for this is working. He is normally independent. Smoking Status: Never smoker Past Alcohol Use History: None Reported Additional Past Alcohol Use History / Comment(s): Pt quit drinking alcohol in 2004( drank almost on daily basis) Past Drug Use History: None Reported - Past Family History Mother Family Medical History: Liver Disease Additional Family Medical History / Comment(s): Mother was an alcoholic. She of cirrhosis of the liver at age 60yrs. Father Family Medical History: Cancer, Coronary Artery Disease (CAD), Myocardial Infarction (LA) Additional Family Medical History / Comment(s): SKIN CA. Father of a [place] at age 65 yrs. Brother(s) Family Medical History: Cancer Additional Family Medical History / Comment(s): LEUKEMIA, LYMPH NODE CA AND MULTIPLE MYELOMA. Medications and Allergies Home Medications Medication Instructions Recorded Confirmed Type Primidone [Mysoline] 200 mg PO BID 12/20/17 03/10/21 History HYDROcodone/APAP 5-325MG [[place] 1 tab PO BID PRN 08/04/19 03/10/21 History 5-325] Atorvastatin [Lipitor] 80 mg PO HS #30 tab 08/06/19 03/10/21 Rx Metoprolol Succinate (ER) [Toprol 50 mg PO DAILY #30 tab.er.24h 08/06/19 03/10/21 Rx XL] Cyclobenzaprine [Flexeril] 5 mg PO BID PRN 02/17/20 03/10/21 History Memantine [Namenda] 10 mg PO BID 02/17/20 03/10/21 History Pramipexole Di-HCl [Mirapex] 1.5 mg PO HS 02/17/20 03/10/21 History Aspirin 81 mg PO DAILY #30 chew 02/19/20 03/10/21 Rx Nitroglycerin Sl Tabs [Nitrostat] 0.4 mg SUBLINGUAL Q5M PRN #30 tab 02/19/20 03/10/21 Rx Furosemide [Lasix] 40 mg PO BID 03/10/21 03/10/21 History Ibuprofen [Motrin] 800 mg PO Q8H PRN 03/10/21 03/10/21 History Pregabalin [Lyrica] 100 mg PO BID 03/10/21 03/10/21 History QUEtiapine [SEROquel] 100 mg PO HS 03/10/21 03/10/21 History Sertraline [Zoloft] 50 mg PO DAILY 03/10/21 03/10/21 History clonazePAM [KlonoPIN] 0.5 mg PO HS 03/10/21 03/10/21 History hydrALAZINE HCL [Apresoline] 25 mg PO BID 03/10/21 03/10/21 History Allergies Allergy/AdvReac Type Severity Reaction Status Date / Time No Known Allergies Allergy Verified 03/10/21 13:29 Physical Examination Osteopathic Statement: *. No significant issues noted on an osteopathic structural exam other than those noted in the History and Physical/Consult. PHYSICAL EXAMINATION: Vitals: Stable General: Awake, alert, appropriate for age, in no acute distress. HEENT: No unusual neck masses around region of lateral neck triangle, thyroid, supraclavicular groove. Extremities: Skin warm and dry without no acute lesions, coloration, temperature, skin intact, no tenderness or erythema. Integument: Hairy patches: Absent Dorsal skin dimples: Absent Cafe au lait spots: Absent Surgical incisions: Posterior lumbar spine well-healed midline Palpation: Please see Pain drawing on Intake sheet for further detail. (Tenderness = T, Nontender = NT, Swelling = S, Ecchymosis = E) Findings on Midline and paraspinal palpation and percussion: Cervical: Mild midline tenderness to palpation Thoracic: Mild midline tenderness to palpation Lumbar: NT Sacral: NT Special findings: None POSTURAL and MUSCULO-SKELETAL EVALUATION: Coronal Balance: Neutral Recumbent testing: Patient can lay flat on back Sagittal Balance: Positive Shoulder Profile: Level Pelvic Girdle: Level Neck ROM: Unrestricted in six directions Lumbar ROM: Unrestricted in six directions Shoulder ROM: Symmetric in abduction, ER/IR Hip ROM: Symmetric in abduction, adduction, ER/IR Knee ROM: Symmetric and intact in Flexion / extension Hands: Normal appearing structure L and R Feet: Normal appearing structure L and R VASCULAR STATUS : Wrist Pulses: 2/4 bilateral radial and ulnar Pedal Pulses: 2/4 bilateral DP and PT Color: Normal Edema: None NEUROLOGIC EXAMINATION: Mental Status: Awake and alert, fully oriented, with normal attention, concentration and memory, and fluent, appropriate speech. Cranial Nerves: I: Olfactory not tested. II: Visual acuity normal, no visual field deficit noted with confrontation. III,IV: Normal pupillary reflexes & intact extraocular movements without nystagmus. V,: Intact symmetrical facial sensation. VII: Intact symmetrical facial motor movement VIII: Hearing intact. IX,X: Intact gag, swallow, & normal voice. XI: Sternocleidomastoid, trapezius function intact. XII: Tongue midline with normal movements. Special Tests: L'hermitte's Sign: Absent Spurling'Sign: Absent Bilateral Cubital percussion test: Absent Bilateral Sunni-Tinel sign - Carpal region: Absent Bilateral Straight Leg Raising: Absent Bilateral Motor Exam (0-5/5, N/T) STRENGTH UPPER EXTREMITY Shoulder Abd (Not part of TAMARA Motor score): RIGHT 4+ LEFT 5 Elbow Flexors: RIGHT 4+ LEFT 5 Elbow Extensor: RIGHT 5 LEFT 5 Wrrist Dorsiflexors: RIGHT 4+ LEFT 5 Finger Abductor: RIGHT 5 LEFT 5 Quality Assurance Coach: RIGHT 5 LEFT 5 LOWER EXTREMITY Hip Flexor (Not part of TAMARA Motor Score): RIGHT 5 LEFT 5 Knee Flexor: RIGHT 5 LEFT 5 Knee Extensor: RIGHT 5 LEFT 5 Ankle Dorsiflexion: RIGHT 5 LEFT 5 Ankle Plantarflexion: RIGHT 5 LEFT 5 EHL: RIGHT 5 LEFT 5 FHL: RIGHT 5 LEFT 5 TAMARA Motor Score: RIGHT 47/50 LEFT 50/50 The only appreciable weakness that he has right now is in his biceps and somewhat in his wrist extension however this is somewhat due to cooperation at this time. REFLEXES Biecp: RIGHT 2 LEFT 2 Tricep: RIGHT 2 LEFT 2 Brachioradialis: RIGHT 2 LEFT 2 Patellar: RIGHT 2 LEFT 2 Achilles: RIGHT 2 LEFT 2 Pathological Reflexes Chahal's: RIGHT Absent LEFT Absent Babinski: RIGHT Absent LEFT Absent Clonus: RIGHT None LEFT None SENSORY Joint Position: Intact bilaterally Vibration Intact bilaterally Pain and LT sense Intact C5-T1 and L2-S1 Dermatomal deficit None Gait and Functional Evaluation: Ambulatory aids: Independent Hand and finger dexterity intact bilaterally. Disdiadochokinesis examination negative bilaterally. Results CT cervical spine 03/10/2021: This demonstrates overall fairly well-maintained alignment within the cervical spine. There is no instability noted. Occipital cervical and C1 2 joints appear stable. There is a slight anterior listhesis of C4 on C5. There is spondylosis from C3 to C6. There is anterior osteophytic changes C5-C6 with complete disc desiccation at this level. There are no apparent fractures or dislocations throughout the subaxial or super axial cervical spine. There is bony stenosis noted at C3 4 and L4 5 bilaterally. MRI without contrast cervical spine 03/10/2021: This demonstrates again overall well-maintained alignment with no acute fracture dislocation that is evident. There is stenosis noted from C3 to C6 with the most significant stenosis at C3 4 and C5 6. There is a pincer-type lesion due to disc herniation disc bulge as well as ligamentum hypertrophy at C3-C4. There is no evident myelomalacia in this area. No evident cord signal change throughout. There is pontine myelomalacia which is noted and this is also noted in radiology report however this is not changed since previous imaging. There are no other fractures dislocations or lesions noted the central and foraminal stenosis from C3 to C6 is moderate to severe. - Labs Labs: Abnormal Lab Results - Last 24 Hours (Table) 03/10/21 03/10/21 03/10/21 Range/Units 12:37 13:30 13:30 Hct 38.1 L (39.0-53.0) % RDW 16.1 H (11.5-15.5) % BUN 8 L (9-20) mg/dL Creatinine 0.65 L (0.66-1.25) mg/dL Calcium 8.1 L (8.4-10.2) mg/dL HDL Cholesterol 19 L (40-60) mg/dL H & H 03/10/21 Range/Units 12:37 Hgb 13.1 (13.0-17.5) gm/dL Hct 38.1 L (39.0-53.0) % Coagulation 03/10/21 Range/Units 12:37 INR 1.1 (<1.2) Result Diagrams: 03/10/21 12:37 03/10/21 13:30 Assessment and Plan Assessment: 66-year-old male status post fall from standing 1. C3 to C6 moderate to severe stenosis, without myelopathy 2. Right upper extremity weakness 3. Pontine demyelination, chronic 4. Status post fall from standing with loss of consciousness and presumed blunt head trauma, negative CT for fracture or acute intracranial processes 5. Presumed syncopal event 6. Complex medical history Plan: -medicine management. Symptom Control: -Pain control: Adequate at this time . Would recommend low on the narcotic side of pain medications if needed. Could try a muscle relaxer as well Activity: -Aggressive ambulation protocol. OOB with all meals. OOB or in chair 4-5x daily. -PT/OT Hard cervical collar, aspen collar when up and about Prophylaxis: -TEDs, SCDs, mechanical ppx. OK for heparin today. Early ambulation is best. -GI ppx. Imaging/labs: No further imaging needed -Trend labs as appropriate Intervention: Hard cervical collar PT OT Continue Decadron 4 mg every 4 hours Monitor neurologic status. While this is not a overt central cord injury he does have reason and stenosis which could be related to this. I do not feel that emergent or urgent surgery is needed however we will attempt to treat his symptoms at this time. Dispo: Likely home when medically cleared. Patient can follow-up with me in the office in one week we will we can discuss his symptoms as well as possible surgical interventions. We will monitor his symptoms while he is here, if they change or get worse we can discuss surgical options however at this point I do not feel that he is in need of emergent or urgent surgical intervention.
--- NOTE | 2021-03-11 10:43 | P.CRDCN ---
History of Present Illness History of present illness: HISTORY OF PRESENTING ILLNESS This is a 64-year-old male with history of coronary artery disease and prior PCI, chronic diastolic heart failure, hypertension, hyperlipidemia, early Parkinson's. He is a nonsmoker, nondiabetic who follows with Dr. Menendez in the office. Patient presents to the emergency department for chief complaint of fall. He states that he was at [place] and he thinks he tripped over the curb and fell. However he does not remember tripping. He states that he just suddenly found himself on the ground and a gentlemen called EMS and he was transported to the hospital. He states he was slightly lightheaded and short of breath after fall. He denies at that time or yesterday any chest pain, palpitations, dizziness, fatigue, change in vision, weakness. At home over the past week he has noticed a temperature of 100.F which resolved. He also describes having palpitations, maybe anxiety, while sleeping, he has a bed that is capable of raising the head which he does, sleeps with one pillow. He also endorses 15lb unintentional weight loss in 2 weeks. He denies symptoms of orthopnea or PND Laboratory data reviewed, troponin negative x 3, Sodium 137, K 4.0, Scr 0.65, BUN 8, covid-19 [place] [id number], HR 64, afebrile, oxygen saturations 94% on room air. Current cardiac medications include hydralazine 25 mg twice a day metoprolol succinate 50 mg daily, Lasix 40 mg twice a day, atorvastatin 80 mg nightly, aspirin 81 mg daily DIAGNOSTICS EKG reveals sinus rhythm, heart rate 63, no significant STT wave abnormalities, left axis deviation. Prior EKG sinus rhythm, heart rate 85, with PAC. Telemetry tracings indicate sinus mechanism with occasional PVCs, no arrhythmia noted. Occasionally HR 50s. Chest xray- no acute cardiopulmonary process CT cervical spine with no evidence of acute fracture or subluxation of the cervical spine MRI without contrast cervical spine: no acute fracture dislocation that is evident. There is stenosis noted from C3 to C6 with the most significant stenosis at C3 4 and C5 6. There is a pincer-type lesion due to disc herniation disc bulge as well as ligamentum hypertrophy at C3-C4. Echo 01/2020: EF between 5560 percent, RV is mildly to moderately enlarged, mild MR, mild TR July 2019- cardiac catheterization which revealed patent stents within the LAD circumflex and RCA. Very distal LAD had significant stenosis but it was a small caliber vessel and the patient was advised medical therapy at that time, patient also had a diagonal branch, small vessel which showed diffuse disease at that time. REVIEW OF SYSTEMS At the time of my exam: CONSTITUTIONAL: Denies fever or chills. CARDIOVASCULAR: Denies chest pain, shortness of breath, orthopnea, PND or palpitations. RESPIRATORY: Denies cough. GASTROINTESTINAL: Denies abdominal pain, diarrhea, constipation, nausea or vomiting. MUSCULOSKELETAL: Denies myalgias. NEUROLOGIC: +syncope Denies numbness, tingling, headacbe or weakness. ENDOCRINE: Denies fatigue, weight change, polydipsia or polyurina. GENITOURINARY: Denies burning, hematuria or urgency with micturation. HEMATOLOGIC: Denies history of anemia or bleeding. PHYSICAL EXAMINATION CONSTITUTIONAL: No apparent distress. HEENT: Head is normocephalic. Pupils are equal, round. Sclerae anicteric. Mucous membranes of the mouth are moist. No JVD. No carotid bruit. CHEST EXAMINATION: Lungs are clear to auscultation. No chest wall tenderness is noted on palpation or with deep breathing. HEART EXAMINATION: Regular rate and rhythm. S1, S2 heard. No murmurs, gallops or rub. ABDOMEN: Soft, nontender. Positive bowel sounds. EXTREMITIES: 2+ peripheral pulses, no lower extremity edema and no calf tenderness. SKIN: intact NEUROLOGIC EXAMINATION: Patient is awake, alert and oriented x3. ASSESSMENT Syncope- unclear etiology. Acute coronary syndrome has been ruled out. Telemetry tracings indicate no arrhythmia at this time. Orthostatic vitals signs are not significant. Possibly related to hypotension vs arrhythmia Coronary artery disease s/p PCI Hypertension Hyperlipididema Chronic Diastolic heart failure with preserved EF PLAN Decrease Lasix 20mg BID Orthostatic vitals- BP decreased from lying to sitting, but increased when standing Ortho following for C3 to C6 moderate to severe stenosis seen on MRI cervial spine Continue telemetry, if no arrhythmia on telemetry, and Vital signs remain stable. Ok to discharge patient from cardiology perspective and patient can follow up with Dr. Hernandez in the office for an event monitor outpatient to rule out arrhythmia event. Thank you kindly for this consultation. Nurse Practitioner note has been reviewed, I agree with a documented findings and plan of care. Patient was seen and examined. Past Medical History Past Medical History: Coronary Artery Disease (CAD), Chest Pain / Angina, Heart Failure, Dementia, GERD/Reflux, Hyperlipidemia, Hypertension, Myocardial I nfarction (CO), Neurologic Disorder, Pneumonia, Prostate Disorder, Renal Disease, Skin Disorder, Sleep Apnea/CPAP/BIPAP Additional Past Medical History / Comment(s): early parkinson's with essential tremors, "lewy body dementia" R nephrolithiasis with surgery, EDITH with no CPAP, Irritable Bowel Syndrome diarrhea off and on, pneumonia/bronchitis, BPH, blood in stool-EGD/colonoscopy were normal, past hiatal hernia(sx), past falls., kidney failure, Last Myocardial Infarction Date:: 06/09/13 History of Any Multi-Drug Resistant Organisms: None Reported Past Surgical History: Back Surgery, Heart Catheterization, Heart Catheterization With Stent, Hernia Repair Additional Past Surgical History / Comment(s): 05/2013 stent to LAD and then a cardiac cath which showed stent patent, Recent R kidney stone removal, 03/19/15 Laparoscopic Elizabeth fundlaplication. SKIN GRAFTS CHEST & BACK FROM [place] AT 13 YRS OLD., COLONOSCOPY. EGD, L connie eye surgery as toddler. Past Anesthesia/Blood Transfusion Reactions: No Reported Reaction Additional Past Anesthesia/Blood Transfusion Reaction / Comment(s): Pt received blood in 1967 without reaction. Date of Last Stent Placement:: 12/2017 Past Psychological History: Bipolar, Depression Additional Psychological History / Comment(s): Pt lives with his . He has depression but states medication for this is working. He is normally independent. Smoking Status: Never smoker Past Alcohol Use History: None Reported Additional Past Alcohol Use History / Comment(s): Pt quit drinking alcohol in 2004( drank almost on daily basis) Past Drug Use History: None Reported - Past Family History Mother Family Medical History: Liver Disease Additional Family Medical History / Comment(s): Mother was an alcoholic. She of cirrhosis of the liver at age 60yrs. Father Family Medical History: Cancer, Coronary Artery Disease (CAD), Myocardial Infarction (CO) Additional Family Medical History / Comment(s): SKIN CA. Father of a CO at age 65 yrs. Brother(s) Family Medical History: Cancer Additional Family Medical History / Comment(s): LEUKEMIA, LYMPH NODE CA AND MULTIPLE MYELOMA. Medications and Allergies Home Medications Medication Instructions Recorded Confirmed Type Primidone [Mysoline] 200 mg PO BID 12/20/17 03/10/21 History HYDROcodone/APAP 5-325MG [[place] 1 tab PO BID PRN 08/04/19 03/10/21 History 5-325] Atorvastatin [Lipitor] 80 mg PO HS #30 tab 08/06/19 03/10/21 Rx Metoprolol Succinate (ER) [Toprol 50 mg PO DAILY #30 tab.er.24h 08/06/1903/10 Rx XL] Cyclobenzaprine [Flexeril] 5 mg PO BID PRN 02/17/20 03/10/21 History Memantine [Namenda] 10 mg PO BID 02/17/20 03/10/21 History Pramipexole Di-HCl [Mirapex] 1.5 mg PO HS 02/17/20 03/10/21 History Aspirin 81 mg PO DAILY #30 chew 02/19/20 03/10/21 Rx Nitroglycerin Sl Tabs [Nitrostat] 0.4 mg SUBLINGUAL Q5M PRN #30 tab 02/19/20 03/10/21 Rx Furosemide [Lasix] 40 mg PO BID 03/10/21 03/10/21 History Ibuprofen [Motrin] 800 mg PO Q8H PRN 03/10/21 03/10/21 History Pregabalin [Lyrica] 100 mg PO BID 03/10/21 03/10/21 History QUEtiapine [SEROquel] 100 mg PO HS 03/10/21 03/10/21 History Sertraline [Zoloft] 50 mg PO DAILY 03/10/21 03/10/21 History clonazePAM [KlonoPIN] 0.5 mg PO HS 03/10/21 03/10/21 History hydrALAZINE HCL [Apresoline] 25 mg PO BID 03/10/21 03/10/21 History Allergies Allergy/AdvReac Type Severity Reaction Status Date / Time No Known Allergies Allergy Verified 03/10/21 13:29 Physical Exam Vitals: Vital Signs Temp Pulse Pulse Resp BP BP Pulse Ox 03/11/21 01:36 20 03/11/21 01:21 97.5 F L 81 14 83/56 93 L 03/10/21 21:09 97.8 F 59 L 20 163/89 94 L 03/10/21 20:58 97.9 F 66 18 142/91 93 L 03/10/21 17:32 97.9 F 66 18 142/91 93 L 03/10/21 16:45 73 18 159/100 95 03/10/21 14:37 63 18 190/90 97 03/10/21 12:01 98.1 F 52 L 18 200/97 97 Intake and Output 03/10/21 03/11/21 03/11/21 22:59 06:59 14:59 Other: Voiding Method Urinal # Voids 0 1 Weight 102.965 kg Results 03/10/21 12:37 03/10/21 13:30 Cardiac Enzymes 03/10/21 03/10/21 03/10/21 Range/Units 13:30 13:30 20:44 AST 34 (17-59) U/L Troponin I <0.012 <0.012 (0.000-0.034) ng/mL 03/10/21 Range/Units 23:57 AST (17-59) U/L Troponin I <0.012 (0.000-0.034) ng/mL Coagulation 03/10/21 Range/Units 12:37 PT 11.2 (9.0-12.0) sec APTT 24.6 (22.0-30.0) sec Lipids 03/10/21 Range/Units 13:30 Triglycerides 89 (<150) mg/dL Cholesterol 87 (<200) mg/dL HDL Cholesterol 19 L (40-60) mg/dL CBC 03/10/21 Range/Units 12:37 WBC 4.7 (3.8-10.6) k/uL RBC 4.55 (4.30-5.90) m/uL Hgb 13.1 (13.0-17.5) gm/dL Hct 38.1 L (39.0-53.0) % Plt Count 181 (150-450) k/uL Comprehensive Metabolic Panel 03/10/21 Range/Units 13:30 Sodium 137 (137-145) mmol/L Potassium 4.0 (3.5-5.1) mmol/L Chloride 107 (98-107) mmol/L Carbon Dioxide 24 (22-30) mmol/L BUN 8 L (9-20) mg/dL Creatinine 0.65 L (0.66-1.25) mg/dL Glucose 99 (74-99) mg/dL Calcium 8.1 L (8.4-10.2) mg/dL AST 34 (17-59) U/L ALT 23 (4-49) U/L Alkaline Phosphatase 79 (38-126) U/L Total Protein 6.5 (6.3-8.2) g/dL Albumin 3.5 (3.5-5.0) g/dL Current Medications Generic Name Dose Route Start Last Admin Trade Name Freq PRN Reason Stop Dose Admin Hydrocodone Bitart/Acetaminophen 1 each 03/10/21 22:24 Hydrocodone/Apap 5-325mg 1 Each Tab PO BID PRN Pain Atorvastatin Calcium 80 mg 03/11/21 21:00 Atorvastatin 80 Mg Tab PO HS DELORES Clonazepam 0.5 mg 03/10/21 22:30 03/10/21 23:00 Clonazepam 0.5 Mg Tab PO 0.5 mg HS DELORES Administration Cyclobenzaprine HCl 5 mg 03/10/21 22:24 03/10/21 23:00 Cyclobenzaprine 5 Mg Tab PO 5 mg BID PRN Administration Muscle Pain Dexamethasone Sodium Phosphate 4 mg 03/10/21 16:00 03/11/21 04:07 Dexamethasone Sod Phosphate 4 Mg/Ml 1 Ml Vial IV 4 mg Q4HR DELORES Administration Furosemide 40 mg 03/11/21 09:00 Furosemide 40 Mg Tab PO BID@0900,1600 DELORES Hydralazine HCl 25 mg 03/11/21 09:00 Hydralazine Hcl 25 Mg Tab PO BID DELORES Hydromorphone HCl 0.5 mg 03/10/21 14:32 03/10/21 23:21 Hydromorphone 0.5 Mg/0.5 Ml Syringe IVP 0.5 mg Q3HR PRN Administration Moderate Pain Ibuprofen 800 mg 03/10/21 22:24 Ibuprofen 800 Mg Tab PO Q8H PRN Pain Memantine 10 mg 03/10/21 22:30 03/10/21 23:18 Memantine 10 Mg Tab PO 10 mg BID DELORES Administration Metoprolol Succinate 50 mg 03/11/21 09:00 Metoprolol Succinate (Er) 50 Mg Tab.Er.24h PO DAILY DELORES Naloxone HCl 0.2 mg 03/10/21 14:32 Naloxone 0.4 Mg/Ml 1 Ml Vial IV Q2M PRN Opioid Reversal Ondansetron HCl 4 mg 03/10/21 14:32 Ondansetron 4 Mg/2 Ml Vial IVP Q8HR PRN Nausea And Vomiting Pramipexole Dihydrochloride 1.5 mg 03/10/21 22:30 03/10/21 23:18 Pramipexole 0.5 Mg Tab PO 1.5 mg HS DELORES Administration Pregabalin 100 mg 03/11/21 09:00 Pregabalin 100 Mg Cap PO BID DELORES Primidone 200 mg 03/11/21 09:00 Primidone 50 Mg Tab PO BID DELORES Quetiapine Fumarate 100 mg 03/10/21 22:30 03/10/21 23:18 Quetiapine 100 Mg Tab PO 100 mg HS DELORES Administration Sertraline HCl 50 mg 03/11/21 09:00 Sertraline 50 Mg Tab PO DAILY DELORES Intake and Output 03/10/21 03/11/21 03/11/21 22:59 06:59 14:59 Other: Voiding Method Urinal # Voids 0 1 Weight 102.965 kg 03/10/21 12:37 03/10/21 13:30
[2021-03-11] MEDS: MEMANTINE 10 MG TAB PO SCH (10:56)
--- NOTE | 2021-03-11 14:04 | HP ---
HISTORY AND PHYSICAL HISTORY AND PHYSICAL AND DISCHARGE SUMMARY: HISTORY OF PRESENT ILLNESS: This 66-year-old gentleman with a past medical history of CAD, CHF, dementia, GERD, hypertension, hyperlipidemia, being followed by Dr. Gutierrez in the outpatient setting apparently had a fall at [facility]. The patient also had early Parkinson's. The patient does not have any loss of consciousness. Patient complains of neck pain. Patient admitted for further evaluation and treatment. Patient apparently had cervical stenosis. Dr. Lopez from Orthopedic Surgery seen the patient recommended outpatient followup. Currently the patient is comfortable. There is no history of fever, rigors. There is no history of headache, loss of consciousness or seizures at this time. No weakness. The patient is able to ambulate. PAST MEDICAL HISTORY: History of CAD, CHF, dementia, GERD, hypertension, hyperlipidemia, multiple medical issues. MEDICATIONS: Home medications are: 1. Apresoline. 2. Klonopin. 3. Zoloft. 4. Seroquel. 5. Mysoline. 6. Lyrica. 7. Mirapex. 8. Nitrostat. 9. Toprol. 10.Namenda. 11.Motrin. 12.Mason. 13.Lasix. 14.Flexeril. 15.Lipitor. 16.Aspirin. ALLERGIES: None. FAMILY HISTORY: History of CAD, myocardial infarction, skin cancer. SOCIAL HISTORY: No history of smoking. No history of alcohol intake. REVIEW OF SYSTEMS: ENT: As mentioned earlier. CARDIOVASCULAR SYSTEM: No angina. RESPIRATORY SYSTEM: No cough or hemoptysis. GI: No nausea. : No dysuria. NERVOUS SYSTEM: No numbness or weakness. ALLERGY/IMMUNOLOGY: No asthma or hayfever. MUSCULOSKELETAL: As mentioned earlier. HEMATOLOGY: No history of anemia. ENDOCRINE: No history of diabetes or hypothyroidism. CONSTITUTIONAL: As mentioned earlier. DERMATOLOGY: Negative. RHEUMATOLOGY: Negative. PSYCHIATRY: As mentioned earlier. PHYSICAL EXAMINATION: The patient is alert and oriented x3. Pulse is 64, blood pressure 134/79, respiration 18, temperature 97.3, pulse ox 94% on room air. HEENT: Conjunctivae normal. NECK: No jugular venous distention. CARDIOVASCULAR: S1, S2 muffled. RESPIRATORY: Breath sounds diminished at the bases. No rhonchi. No crackles. ABDOMEN: Soft, nontender. No mass palpable. LEGS: No edema, no swelling. NERVOUS SYSTEM: Higher functions as mentioned earlier. Moves all 4 limbs. No focal motor or sensory deficits. LYMPHATICS: No lymphadenopathy of the neck, axillae or groin. SKIN: No ulcer, rash or bleeding. JOINTS: No active deforming arthropathy. No orthostatic vitals. Neck movements are full. LABS: WBC 4.7, hemoglobin 13.1, creatinine is 0.65. COVID-19 is negative. Otherwise cervical spine MRI shows spondylitic changes, mild spinal stenosis C3-4. ASSESSMENT: 1. Fall and neck pain, cervical degenerative joint disease. 2. Cervical stenosis mild C3-4 and C5-6. 3. Coronary artery disease. 4. Congestive heart failure. 5. Dementia. 6. Gastroesophageal reflux disease. 7. Hypertension. 8. Hyperlipidemia. 9. History of myocardial infarction. 10.History of Parkinson's. 11.History of prostate disorder. 12.History of sleep apnea. 13.Essential tremors. 14.Lewy body dementia. 15.Nephrolithiasis. 16.Back surgery, degenerative joint disease. 17.History of coronary artery disease, stent. 18.Bipolar, depression. 19.FULL CODE. RECOMMENDATIONS AND DISCUSSION: In this 66-year-old gentleman who presented with multiple medical problems at this time we will continue with conservative line of management and Orthopedic has seen the patient, Dr. Lopez has recommended outpatient followup. Patient may be discharged in stable condition with guarded prognosis. I recommend the patient to continue the home medications. Follow with Dr. Gutierrez and Dr. Lopez as recommended. Please refer to the labs and multiple progress and history and physical notes for further information. MMODL / IJN: [id number] /
[2021-03-11] MEDS ORDERED: ATORVASTATIN 80 MG TAB PO SCH (21:00)
== END 2021-03-11 12:57 | disposition home or self-care (01) ==
LOC: EC 11:59 → 6NMEDSUR 16:19
PROVIDERS: ADMIT Hospitalist; ATTEND Hospitalist
DX: R55 Syncope and collapse (principal); M54.2 Cervicalgia; M50.321 Other cervical disc degeneration at C4-C5 level; M48.02 Spinal stenosis, cervical region; W10.1XXA Fall (on)(from) sidewalk curb, initial encounter; Y92.511 Restaurant or cafe as the place of occurrence of the external cause; Y93.89 Activity, other specified; I25.10 Atherosclerotic heart disease of native coronary artery without angina pectoris; I50.32 Chronic diastolic (congestive) heart failure; G31.83 Neurocognitive disorder with Lewy bodies; K21.9 Gastro-esophageal reflux disease without esophagitis; E78.5 Hyperlipidemia, unspecified; I11.0 Hypertensive heart disease with heart failure; I25.2 Old myocardial infarction; G47.30 Sleep apnea, unspecified; K58.0 Irritable bowel syndrome with diarrhea; N20.0 Calculus of kidney; Z98.1 Arthrodesis status; K44.9 Diaphragmatic hernia without obstruction or gangrene; M47.812 Spondylosis without myelopathy or radiculopathy, cervical region; G37.8 Other specified demyelinating diseases of central nervous system; G25.0 Essential tremor; I49.3 Ventricular premature depolarization; F31.9 Bipolar disorder, unspecified; Z79.82 Long term (current) use of aspirin; Z79.899 Other long term (current) drug therapy; Z20.822 Contact with and (suspected) exposure to COVID-19; Z94.5 Skin transplant status; Z95.5 Presence of coronary angioplasty implant and graft; Z86.59 Personal history of other mental and behavioral disorders; Z80.6 Family history of leukemia; Z82.49 Family history of ischemic heart disease and other diseases of the circulatory system; Z81.1 Family history of alcohol abuse and dependence; Z80.8 Family history of malignant neoplasm of other organs or systems; Z80.7 Family history of other malignant neoplasms of lymphoid, hematopoietic and related tissues
CPT/HCPCS: 96376 ×3; 96374; 96375; 99285; 36415; 93005; 80061; 80053; 84484; 85025; 85610; 85730; 87635; 71045; 72125; 70450; 72141; G0378 ×2; J1100 ×2; J1170

== ENCOUNTER → 2021-06-01 | Outpatient (CLI) | payer MEDICARE ==
--- NOTE | 2021-06-01 09:07 | US ---
EXAMINATION TYPE: US thyroid st tissue head/neck DATE OF EXAM: 06/01/2021 COMPARISON: MR & CT CLINICAL HISTORY: R59.0 Localized enlarged lymph nodes. Patient states he has two palpable areas. The first area is left lateral neck near carotid bulb. Ther e is a node seen measuring 1.5 x 0.6 cm, and another smaller node measuring 0.9 x 0.4 cm. The second palpable area is located right posterior neck just below hairline. There is an echogenic l esion measuring 0.8 x 0.5 x 0.8 cm, appears as a lipoma. IMPRESSION: 1. Palpable abnormality in the left lateral neck near the carotid bulb corresponds to 2 adjacent none nlarged normal-appearing lymph nodes. 2. The second palpable abnormality in the right posterior neck below the hairline corresponds to a 0. 8 cm ill-defined hyperechoic lesion which may represent a lipoma. CT neck with contrast may be helpful for further evaluation of both areas.
== END | disposition home or self-care (01) ==
LOC: RADUSWWP 07:16
PROVIDERS: ATTEND Family Medicine
DX: R22.1 Localized swelling, mass and lump, neck (principal)
CPT/HCPCS: 76536

== ENCOUNTER 2021-06-07 14:27 | Emergency (ER) | payer MEDICARE ==
[2021-06-07] MEDS ORDERED: ACETAMINOPHEN TAB 500 MG TAB PO STA (15:40)
[2021-06-07] MEDS ORDERED: SODIUM CHLORIDE 0.9% 1,000 ML IV STA (15:40)
[2021-06-07 16:11] LABS: ALT 27 U/L (4-49); AST 33 U/L (17-59); African American GFR (CKD) >90 (>60 ml/min/1.73 sqM); Albumin 4.1 g/dL (3.5-5.0); Alkaline Phosphatase 78 U/L (38-126); Anion Gap 9 mmol/L; Blood Urea Nitrogen 21 mg/dL (9-20); Carbon Dioxide 26 mmol/L (22-30); Chloride 107 mmol/L (98-107); Glucose 95 mg/dL (74-99); Non-African American GFR(CKD) >90 (>60 ml/min/1.73 sqM); Potassium 4.3 mmol/L (3.5-5.1); Sodium 142 mmol/L (137-145); Total Bilirubin 0.3 mg/dL (0.2-1.3)
[2021-06-07 16:19] LABS: Basophils # (A) 0.1 k/uL (0-0.2); Basophils % (A) 1 %; Eosinophils # (A) 0.3 k/uL (0-0.7); Eosinophils % (A) 5 %; HCT 39.9 % (39.0-53.0); HGB 13.1 gm/dL (13.0-17.5); Lymphocytes # (A) 1.1 k/uL (1.0-4.8); Lymphocytes % (A) 19 %; MCHC 32.9 g/dL (31.0-37.0); MCV 85.1 fL (80.0-100.0); Mean Platelet Volume 6.8; Monocytes # (A) 0.5 k/uL (0-1.0); Monocytes % (A) 9 %; Neutrophils # (A) 3.7 k/uL (1.3-7.7); Neutrophils % (A) 62 %; Platelet Count 225 k/uL (150-450); RBC 4.69 m/uL (4.30-5.90)
--- NOTE | 2021-06-07 17:11 | CT ---
EXAMINATION TYPE: CT brain cspine wo con DATE OF EXAM: 06/07/2021 COMPARISON: 03/10/2021 HISTORY: Swelling to the back of the head and neck without injury. CT DLP: 1714.9 mGycm Automated exposure control for dose reduction was used. There is cerebral cortical atrophy. There is no mass effect nor midline shift. There is no sign of in tracranial hemorrhage. The calvarium is intact. Skull base is intact. There is mucus retention cysts in the maxillary sinuses. Orbital margins are intact. Cervical vertebra have normal alignment. There is degenerative disc space narrowing at C5-6 and C6-7 with spur formation. Posterior elements are intact. There is hypertrophic mild multilevel facet arthr opathy. IMPRESSION: Spondylotic changes in the lower cervical spine. No fracture. No change. Mild cerebral atrophy. No acute intracranial abnormality. Maxillary sinusitis slightly worse than old exam.
--- NOTE | 2021-06-07 17:13 | ED ---
Neck Injury/Pain HPI - General Chief Complaint: Neck Pain/Injury Stated Complaint: Swelling in head Time Seen by Provider: 06/07/21 15:35 Source: patient, RN notes reviewed Mode of arrival: ambulatory Limitations: no limitations - History of Present Illness Initial Comments: Patient is a 66-year-old male that presents with posterior right-sided neck pain and a swollen lymph node. He notes that he was seen here several days ago with no acute findings and imaging or labs. He notes that his primary care sent him to get a possible computed tomography scan. Patient did not appear to be any distress or pain. He noted that he was mildly tender on the posterior right aspect of his neck over swollen lymph nodes. He denied any chest pain shortness of breath headache nausea vomiting diarrhea constipation fever fatigue chills. - Related Data Home Medications Medication Instructions Recorded Confirmed Primidone [Mysoline] 200 mg PO BID 12/20/17 03/10/21 HYDROcodone/APAP 5-325MG [[place] 1 tab PO BID PRN 08/04/19 03/10/21 5-325] Cyclobenzaprine [Flexeril] 5 mg PO BID PRN 02/17/20 03/10/21 Memantine [Namenda] 10 mg PO BID 02/17/20 03/10/21 Pramipexole Di-HCl [Mirapex] 1.5 mg PO HS 02/17/20 03/10/21 Furosemide [Lasix] 40 mg PO BID 03/10/21 03/10/21 Ibuprofen [Motrin] 800 mg PO Q8H PRN 03/10/21 03/10/21 Pregabalin [Lyrica] 100 mg PO BID 03/10/21 03/10/21 QUEtiapine [SEROquel] 100 mg PO HS 03/10/21 03/10/21 Sertraline [Zoloft] 50 mg PO DAILY 03/10/21 03/10/21 clonazePAM [KlonoPIN] 0.5 mg PO HS 03/10/21 03/10/21 hydrALAZINE HCL [Apresoline] 25 mg PO BID 03/10/21 03/10/21 Previous Rx's Medication Instructions Recorded Atorvastatin [Lipitor] 80 mg PO HS #30 tab 08/06/19 Metoprolol Succinate (ER) [Toprol 50 mg PO DAILY #30 tab.er.24h 08/06/19 XL] Aspirin 81 mg PO DAILY #30 chew 02/19/20 Nitroglycerin Sl Tabs [Nitrostat] 0.4 mg SUBLINGUAL Q5M PRN #30 tab 02/19/20 Allergies Allergy/AdvReac Type Severity Reaction Status Date / Time No Known Allergies Allergy Verified 06/07/21 15:20 Review of Systems ROS Statement: Those systems with pertinent positive or pertinent negative responses have been documented in the HPI. ROS Other: All systems not noted in ROS Statement are negative. Past Medical History Past Medical History: Coronary Artery Disease (CAD), Chest Pain / Angina, Heart Failure, Dementia, GERD/Reflux, Hyperlipidemia, Hypertension, Myocardial Infarction (NM), Neurologic Disorder, Pneumonia, Prostate Disorder, Renal Disease, Skin Disorder, Sleep Apnea/CPAP/BIPAP Additional Past Medical History / Comment(s): early parkinson's with essential tremors, "lewy body dementia" R nephrolithiasis with surgery, EDITH with no CPAP, Irritable Bowel Syndrome diarrhea off and on, pneumonia/bronchitis, BPH, blood in stool-EGD/colonoscopy were normal, past hiatal hernia(sx), past falls., kidney failure, Last Myocardial Infarction Date:: 06/09/13 History of Any Multi-Drug Resistant Organisms: None Reported Past Surgical History: Back Surgery, Heart Catheterization, Heart Catheterizatio n With Stent, Hernia Repair Additional Past Surgical History / Comment(s): 05/2013 stent to LAD and then a cardiac cath which showed stent patent, Recent R kidney stone removal, 03/19/15 Laparoscopic Elizabeth fundlaplication. SKIN GRAFTS CHEST & BACK FROM BASSETT AT 13 YRS OLD., COLONOSCOPY. EGD, L [facility] eye surgery as toddler. Past Anesthesia/Blood Transfusion Reactions: No Reported Reaction Additional Past Anesthesia/Blood Transfusion Reaction / Comment(s): Pt received blood in 1967 without reaction. Date of Last Stent Placement:: 12/2017 Past Psychological History: Bipolar, Depression Smoking Status: Never smoker Past Alcohol Use History: None Reported Past Drug Use History: None Reported - Past Family History Mother Family Medical History: Liver Disease Additional Family Medical History / Comment(s): Mother was an alcoholic. She of cirrhosis of the liver at age 60yrs. Father Family Medical History: Cancer, Coronary Artery Disease (CAD), Myocardial Infarction (NM) Additional Family Medical History / Comment(s): SKIN CA. Father of a NM at age 65 yrs. Brother(s) Family Medical History: Cancer Additional Family Medical History / Comment(s): LEUKEMIA, LYMPH NODE CA AND MULTIPLE MYELOMA. General Exam Limitations: no limitations General appearance: alert, in no apparent distress Head exam: Present: atraumatic, normocephalic, normal inspection Eye exam: Present: normal appearance, PERRL, EOMI. Absent: scleral icterus, conjunctival injection, periorbital swelling Neck exam: Present: normal inspection, full ROM, lymphadenopathy (Singular p osterior cervical lymph node less than 0.5 cm.). Absent: tenderness, meningismus Respiratory exam: Present: normal lung sounds bilaterally. Absent: respiratory distress, wheezes, rales, rhonchi, stridor Cardiovascular Exam: Present: regular rate, normal rhythm, normal heart sounds. Absent: systolic murmur, diastolic murmur, rubs, gallop, clicks GI/Abdominal exam: Present: soft, normal bowel sounds. Absent: distended, tenderness, guarding, rebound, rigid Extremities exam: Present: normal inspection, full ROM, normal capillary refill. Absent: tenderness, pedal edema, joint swelling, calf tenderness Neurological exam: Present: alert, oriented X3, CN II-XII intact Psychiatric exam: Present: normal affect, normal mood Skin exam: Present: warm, dry, intact, normal color. Absent: rash Course Vital Signs 06/07/21 06/07/21 15:17 15:37 Temperature 98.1 F Pulse Rate 73 74 Respiratory 18 20 Rate Blood Pressure 155/85 172/93 O2 Sat by Pulse 95 95 Oximetry Medical Decision Making - Medical Decision Making 66-year-old male complaining of right-sided posterior neck pain with swollen lymph nodes. Labs, CT of the head and C-spine, 1 L normal saline, 1000 mg of Tylenol ordered. Labs unremarkable. Computed tomography scan negative for any acute process. Case discussed with Dr. Hoffman, patient discharge home with follow-up to primary care. - Lab Data Result diagrams: 06/07/21 15:44 06/07/21 15:44 Lab Results 06/07/21 06/07/21 Range/Units 15:44 15:44 WBC 6.0 (3.8-10.6) k/uL RBC 4.69 (4.30-5.90) m/uL Hgb 13.1 (13.0-17.5) gm/dL Hct 39.9 (39.0-53.0) % MCV 85.1 (80.0-100.0) fL MCH 28.0 (25.0-35.0) pg MCHC 32.9 (31.0-37.0) g/dL RDW 16.0 H (11.5-15.5) % Plt Count 225 (150-450) k/uL MPV 6.8 Neutrophils % 62 % Lymphocytes % 19 % Monocytes % 9 % Eosinophils % 5 % Basophils % 1 % Neutrophils # 3.7 (1.3-7.7) k/uL Lymphocytes # 1.1 (1.0-4.8) k/uL Monocytes # 0.5 (0-1.0) k/uL Eosinophils # 0.3 (0-0.7) k/uL Basophils # 0.1 (0-0.2) k/uL Sodium 142 (137-145) mmol/L Potassium 4.3 (3.5-5.1) mmol/L Chloride 107 (98-107) mmol/L Carbon Dioxide 26 (22-30) mmol/L Anion Gap 9 mmol/L BUN 21 H (9-20) mg/dL Creatinine 0.82 (0.66-1.25) mg/dL Est GFR (CKD-EPI)AfAm >90 (>60 ml/min/1.73 sqM) Est GFR (CKD-EPI)NonAf >90 (>60 ml/min/1.73 sqM) Glucose 95 (74-99) mg/dL Calcium 9.0 (8.4-10.2) mg/dL Total Bilirubin 0.3 (0.2-1.3) mg/dL AST 33 (17-59) U/L ALT 27 (4-49) U/L Alkaline Phosphatase 78 (38-126) U/L Total Protein 7.0 (6.3-8.2) g/dL Albumin 4.1 (3.5-5.0) g/dL - Radiology Data Radiology results: report reviewed, image reviewed CT of the brain and C-spine: Spondylitic changes in the lower cervical spine. No fracture. No change. Mild cerebral atrophy. No acute intracranial abnormality. Maxillary sinusitis/worsen or exam. Disposition Clinical Impression: Neck pain, Cervical lymphadenopathy Disposition: HOME SELF-CARE Condition: Stable Instructions (If sedation given, give patient instructions): Neck Pain (ED) Additional Instructions: Please return to the Emergency Department if symptoms worsen or any other concerns. Follow-up with primary care in the next several days. Take Tylenol and Motrin as needed for pain. Is patient prescribed a controlled substance at d/c from ED?: No Referrals: Román Gutierrez DO [Primary Care Provider] - 1-2 days Time of Disposition: 17:29
[2021-06-07 17:39] VITALS: BP 147/89; PULSE 62; RESP 18; TEMP 97.9
== END 2021-06-07 17:38 | disposition home or self-care (01) ==
LOC: EC 14:27
DX: R59.0 Localized enlarged lymph nodes (principal); M54.2 Cervicalgia; I11.0 Hypertensive heart disease with heart failure; I50.9 Heart failure, unspecified; I25.10 Atherosclerotic heart disease of native coronary artery without angina pectoris; I25.2 Old myocardial infarction; K21.9 Gastro-esophageal reflux disease without esophagitis; E78.5 Hyperlipidemia, unspecified; G20 Parkinson's disease; F02.80 Dementia in other diseases classified elsewhere, unspecified severity, without behavioral disturbance, psychotic disturbance, mood disturbance, and anxiety; F31.9 Bipolar disorder, unspecified; Z79.891 Long term (current) use of opiate analgesic; Z79.1 Long term (current) use of non-steroidal anti-inflammatories (NSAID); Z79.82 Long term (current) use of aspirin; Z79.899 Other long term (current) drug therapy; Z82.49 Family history of ischemic heart disease and other diseases of the circulatory system
CPT/HCPCS: 36415; 70450; 72125; 80053; 85025; 96360; 96361; 99284

== ENCOUNTER → 2021-06-15 | Outpatient (CLI) | payer MEDICARE ==
--- NOTE | 2021-06-15 16:21 | CT ---
EXAMINATION TYPE: CT soft tissue neck w con DATE OF EXAM: 06/15/2021 COMPARISON: 06/07/2021 cervical spine HISTORY: posterior neck swelling CT DLP: 532.5 mGycm CONTRAST: Patient injected with 100 mL of Isovue 300. TECHNIQUE: Axial images at 3 mm thick sections. Reconstructed images in the coronal plane and sagitt al plane are reviewed. FINDINGS: Limited CT sections are obtained the lung apices. The lung apices appear clear. CT neck: The torus tubarius and fossa of Rosenmuller are normal. Lumber Mover spaces are normal. Ther e is a retention cyst within the left maxillary sinus. Parotid glands appear normal and symmetrical. Submandibular glands, are normal. Parapharyngeal spac es are normal. No suspicious adenopathy is evident. The hypopharynx appears within normal limits. Vocal cord level appear symmetrical. Thyroid as visualized is normal. Mild degenerative disc changes are within the cervical spine. IMPRESSIONS: 1. No suspicious abnormality to account for posterior neck swelling.
== END | disposition home or self-care (01) ==
LOC: RADCTMAIN 13:32
PROVIDERS: ATTEND Family Medicine
DX: R22.1 Localized swelling, mass and lump, neck (principal)
CPT/HCPCS: 70491; Q9967

== ENCOUNTER 2021-08-13 21:21 | Emergency (ER) | payer MEDICARE ==
[2021-08-13] MEDS ORDERED: MORPHINE SULFATE 4 MG/ML SYRINGE IV STA ×2 (21:50→23:26)
[2021-08-13 22:02] VITALS: RESP 18
--- NOTE | 2021-08-13 22:10 | ED ---
Fall HPI - General Chief Complaint: Fall Stated Complaint: Fall, neck pain Time Seen by Provider: 08/13/21 21:22 Source: patient, EMS Mode of arrival: EMS - History of Present Illness MD Complaint: fall -: minutes(s) Fall From: standing When Fall Occurred: just prior to arrival Fall Witnessed: yes, by bystander Place Fall Occurred: street Loss of Consciousness: unsure Prolonged Down Time?: no Symptoms Prior to Fall: none Location: neck, back Severity: severe Quality: sharp Associated Symptoms: numbness (Bilateral arms) - Related Data Home Medications Medication Instructions Recorded Confirmed Primidone [Mysoline] 200 mg PO BID 12/20/17 03/10/21 HYDROcodone/APAP 5-325MG [[place] 1 tab PO BID PRN 08/04/19 03/10/21 5-325] Cyclobenzaprine [Flexeril] 5 mg PO BID PRN 02/17/20 03/10/21 Memantine [Namenda] 10 mg PO BID 02/17/20 03/10/21 Pramipexole Di-HCl [Mirapex] 1.5 mg PO HS 02/17/20 03/10/21 Furosemide [Lasix] 40 mg PO BID 03/10/21 03/10/21 Ibuprofen [Motrin] 800 mg PO Q8H PRN 03/10/21 03/10/21 Pregabalin [Lyrica] 100 mg PO BID 03/10/21 03/10/21 QUEtiapine [SEROquel] 100 mg PO HS 03/10/21 03/10/21 Sertraline [Zoloft] 50 mg PO DAILY 03/10/21 03/10/21 clonazePAM [KlonoPIN] 0.5 mg PO HS 03/10/21 03/10/21 hydrALAZINE HCL [Apresoline] 25 mg PO BID 03/10/21 03/10/21 Previous Rx's Medication Instructions Recorded Atorvastatin [Lipitor] 80 mg PO HS #30 tab 08/06/19 Metoprolol Succinate (ER) [Toprol 50 mg PO DAILY #30 tab.er.24h 08/06/19 XL] Aspirin 81 mg PO DAILY #30 chew 02/19/20 Nitroglycerin Sl Tabs [Nitrostat] 0.4 mg SUBLINGUAL Q5M PRN #30 tab 04/01/20 Allergies Allergy/AdvReac Type Severity Reaction Status Date / Time No Known Allergies Allergy Verified 06/07/21 15:20 Review of Systems ROS Statement: Those systems with pertinent positive or pertinent negative responses have been documented in the HPI. ROS Other: All systems not noted in ROS Statement are negative. Constitutional: Denies: fever, chills, weakness Eyes: Denies: vision change ENT: Denies: throat pain Respiratory: Denies: cough, dyspnea Cardiovascular: Denies: chest pain, palpitations, syncope Gastrointestinal: Denies: abdominal pain, vomiting, diarrhea Genitourinary: Denies: dysuria, hematuria, testicular pain Musculoskeletal: Reports: as per HPI, back pain Skin: Denies: rash, lesions Neurological: Reports: paresthesias (Bilateral arms). Denies: headache, weakness, numbness Past Medical History Past Medical History: Coronary Artery Disease (CAD), Chest Pain / Angina, Heart Failure, Dementia, GERD/Reflux, Hyperlipidemia, Hypertension, Myocardial Infarction (PR), Neurologic Disorder, Pneumonia, Prostate Disorder, Renal Disease, Skin Disorder, Sleep Apnea/CPAP/BIPAP Additional Past Medical History / Comment(s): early parkinson's with essential tremors, "lewy body dementia" R nephrolithiasis with surgery, EDITH with no CPAP, Irritable Bowel Syndrome diarrhea off and on, pneumonia/bronchitis, BPH, blood in stool-EGD/colonoscopy were normal, past hiatal hernia(sx), past falls., kidney failure, Last Myocardial Infarction Date:: 06/09/13 History of Any Multi-Drug Resistant Organisms: None Reported Past Surgical History: Back Surgery, Heart Catheterization, Heart Catheterization With Stent, Hernia Repair Additional Past Surgical History / Comment(s): 05/2013 stent to LAD and then a cardiac cath which showed stent patent, Recent R kidney stone removal, 03/19/15 Laparoscopic Elizabeth fundlaplication. SKIN GRAFTS CHEST & BACK FROM BASSETT AT 13 YRS OLD., COLONOSCOPY. EGD, [facility] as toddler. Past Anesthesia/Blood Transfusion Reactions: No Reported Reaction Additional Past Anesthesia/Blood Transfusion Reaction / Comment(s): Pt received blood in 1967 without reaction. Date of Last Stent Placement:: 12/2017 Past Psychological History: Bipolar, Depression Smoking Status: Never smoker Past Alcohol Use History: None Reported Past Drug Use History: None Reported - Past Family History Mother Family Medical History: Liver Disease Additional Family Medical History / Comment(s): Mother was an alcoholic. She of cirrhosis of the liver at age 60yrs. Father Family Medical History: Cancer, Coronary Artery Disease (CAD), Myocardial Infarction (PR) Additional Family Medical History / Comment(s): SKIN CA. Father of a PR at age 65 yrs. Brother(s) Family Medical History: Cancer Additional Family Medical History / Comment(s): LEUKEMIA, LYMPH NODE CA AND MULTIPLE MYELOMA. General Exam Limitations: physical limitation General appearance: alert, in no apparent distress Head exam: Present: atraumatic, normocephalic Eye exam: Present: normal appearance. Absent: scleral icterus, conjunctival injection ENT exam: Present: normal oropharynx Neck exam: Present: normal inspection Respiratory exam: Present: normal lung sounds bilaterally. Absent: respiratory distress, wheezes, rales, rhonchi, stridor Cardiovascular Exam: Present: regular rate, normal rhythm, normal heart sounds. Absent: systolic murmur, diastolic murmur, rubs, gallop GI/Abdominal exam: Present: soft Extremities exam: Present: normal inspection, full ROM, normal capillary refill. Absent: tenderness Back exam: Present: normal inspection, tenderness, vertebral tenderness (T- spine) Neurological exam: Present: alert, oriented X3, CN II-XII intact. Absent: motor sensory deficit Skin exam: Present: warm, dry, intact, normal color. Absent: rash Course Vital Signs 08/13/21 08/13/21 21:50 23:45 Temperature 98 F Pulse Rate 65 59 L Respiratory 18 18 Rate Blood Pressure 165/106 145/92 O2 Sat by Pulse 97 96 Oximetry Medical Decision Making - Lab Data Result diagrams: 08/13/21 22:03 08/13/21 22:03 Lab Results 08/13/21 08/13/21 Range/Units 22:03 22:03 WBC 6.9 (3.8-10.6) k/uL RBC 4.48 (4.30-5.90) m/uL Hgb 12.8 L (13.0-17.5) gm/dL Hct 39.6 (39.0-53.0) % MCV 88.5 (80.0-100.0) fL MCH 28.7 (25.0-35.0) pg MCHC 32.4 (31.0-37.0) g/dL RDW 15.4 (11.5-15.5) % Plt Count 175 (150-450) k/uL MPV 8.1 Neutrophils % 68 % Lymphocytes % 17 % Monocytes % 9 % Eosinophils % 3 % Basophils % 1 % Neutrophils # 4.7 (1.3-7.7) k/uL Lymphocytes # 1.2 (1.0-4.8) k/uL Monocytes # 0.6 (0-1.0) k/uL Eosinophils # 0.2 (0-0.7) k/uL Basophils # 0.0 (0-0.2) k/uL Sodium 138 (137-145) mmol/L Potassium 4.6 (3.5-5.1) mmol/L Chloride 105 (98-107) mmol/L Carbon Dioxide 25 (22-30) mmol/L Anion Gap 8 mmol/L BUN 14 (9-20) mg/dL Creatinine 0.76 (0.66-1.25) mg/dL Est GFR (CKD-EPI)AfAm >90 (>60 ml/min/1.73 sqM) Est GFR (CKD-EPI)NonAf >90 (>60 ml/min/1.73 sqM) Glucose 84 (74-99) mg/dL Calcium 8.3 L (8.4-10.2) mg/dL Serum Alcohol <10 mg/dL Disposition Clinical Impression: Cervical strain Disposition: HOME SELF-CARE Condition: Good Instructions (If sedation given, give patient instructions): Fall Prevention ( ED), Cervical Strain (ED) Is patient prescribed a controlled substance at d/c from ED?: No Referrals: Román Gutierrez DO [Primary Care Provider] - 1-2 days
[2021-08-13 22:47] LABS: Basophils % (A) 1 %; Eosinophils # (A) 0.2 k/uL (0-0.7); Eosinophils % (A) 3 %; HCT 39.6 % (39.0-53.0); HGB 12.8 gm/dL (13.0-17.5); Lymphocytes # (A) 1.2 k/uL (1.0-4.8); Lymphocytes % (A) 17 %; MCH 28.7 pg (25.0-35.0); MCHC 32.4 g/dL (31.0-37.0); MCV 88.5 fL (80.0-100.0); Mean Platelet Volume 8.1; Monocytes # (A) 0.6 k/uL (0-1.0); Monocytes % (A) 9 %; Neutrophils # (A) 4.7 k/uL (1.3-7.7); Neutrophils % (A) 68 %; Platelet Count 175 k/uL (150-450); RBC 4.48 m/uL (4.30-5.90); RDW 15.4 % (11.5-15.5); WBC 6.9 k/uL (3.8-10.6)
[2021-08-13 23:00] LABS: African American GFR (CKD) >90 (>60 ml/min/1.73 sqM); Alcohol <10 mg/dL; Anion Gap 8 mmol/L; Blood Urea Nitrogen 14 mg/dL (9-20); Calcium 8.3 mg/dL (8.4-10.2); Carbon Dioxide 25 mmol/L (22-30); Chloride 105 mmol/L (98-107); Glucose 84 mg/dL (74-99); Non-African American GFR(CKD) >90 (>60 ml/min/1.73 sqM); Sodium 138 mmol/L (137-145)
[2021-08-13 23:01] LABS: Potassium 4.6 mmol/L (3.5-5.1)
--- NOTE | 2021-08-13 23:19 | CT ---
EXAMINATION TYPE: CT brain cspine wo con DATE OF EXAM: 08/13/2021 COMPARISON: 06/07/2021 HISTORY: FALL INJURY CT DLP: 1572.3 mGycm Automated exposure control for dose reduction was used. Images of the brain and cervical spine obtained with no contrast. Ventricles have normal size. There is no mass effect nor midline shift. There is no sign of intracran ial hemorrhage. Calvarium is intact. Cervical vertebra have normal alignment. There is narrowing of C5-6 disc space with anterior spurring . Posterior elements are intact. There is mild hypertrophic facet arthropathy in the cervical spine a t C3-4. There is no evidence for fracture. IMPRESSION: Negative CT scan of the brain. Spondylotic changes in the cervical spine. No fracture. The No change compared to old exam.
--- NOTE | 2021-08-13 23:26 | CT ---
EXAMINATION TYPE: CT thoracic spine wo con DATE OF EXAM: 08/13/2021 COMPARISON: Chest CT scan 02/18/2020 HISTORY: PAIN FROM FALL CT DLP: 1680 mGycm Automated exposure control for dose reduction was used. Thoracic vertebra have normal alignment. There is no compression fracture. There is mild spurring ant eriorly in the mid and lower thoracic spine. There is no evidence of paraspinal mass. I see no focal bone destruction. Posterior elements are intact. There is no evidence of thoracic bony spinal stenosi s. IMPRESSION: Mild spur formation. No fracture. No change compared to old exam.
[2021-08-14] MEDS ORDERED: MORPHINE SULFATE 4 MG/ML SYRINGE IV STA (01:05)
[2021-08-14] MEDS ORDERED: HYDROmorphone 0.5 MG/0.5 ML SYRINGE IVP STA (01:30)
[2021-08-14 02:00] VITALS: BP 128/90; PULSE 63; TEMP 97.6
== END 2021-08-14 02:00 | disposition home or self-care (01) ==
LOC: EC 21:21
DX: S16.1XXA Strain of muscle, fascia and tendon at neck level, initial encounter (principal); I11.0 Hypertensive heart disease with heart failure; I25.10 Atherosclerotic heart disease of native coronary artery without angina pectoris; I25.2 Old myocardial infarction; I50.9 Heart failure, unspecified; Z79.899 Other long term (current) drug therapy; W18.30XA Fall on same level, unspecified, initial encounter; Y92.410 Unspecified street and highway as the place of occurrence of the external cause
CPT/HCPCS: 36415; 80048; 85025; 72128; 72125; 70450; 99284; 96374; 96375; 96376; G0480; J2270 ×2; J1170; 80320

== ENCOUNTER 2021-08-18 12:34 | Emergency (ER) | payer MEDICARE ==
[2021-08-18 12:50] VITALS: TEMP 98.2
[2021-08-18] MEDS ORDERED: MECLIZINE 12.5 MG TAB PO STA (14:46)
[2021-08-18] MEDS ORDERED: METOCLOPRAMIDE 5 MG/ML 2 ML VIAL IM STA (14:46)
--- NOTE | 2021-08-18 14:50 | ED ---
General Adult HPI - General Chief complaint: Dizziness Stated complaint: dizziness, falls-revisit Time Seen by Provider: 08/18/21 14:29 Source: patient, RN notes reviewed Mode of arrival: wheelchair Limitations: no limitations - History of Present Illness Initial comments: Patient is a pleasant 66-year-old male presenting to the emergency department with complaints of dizziness. Patient did have a fall several days ago. Patient stepped on a pot hole and tripped. Patient did strike his head at that time. Patient has been having dizziness described as a spinning sensation since that time. Patient does have history of similar episodes once previously. Patient states dizziness has been fairly steady since he fell. Patient did have a secondary fall today however no injury. No significant headache. No confusion or speech problems. Symptoms are positional and worse with upright position. - Related Data Home Medications Medication Instructions Recorded Confirmed Primidone [Mysoline] 100 mg PO BID 12/20/17 08/18/21 Memantine [Namenda] 10 mg PO BID 02/17/20 08/18/21 Pramipexole Di-HCl [Mirapex] 1.5 mg PO HS 02/17/20 08/18/21 Furosemide [Lasix] 40 mg PO BID 03/10/21 08/18/21 Pregabalin [Lyrica] 100 mg PO BID 03/10/21 08/18/21 QUEtiapine [SEROquel] 200 mg PO HS 03/10/21 08/18/21 hydrALAZINE HCL [Apresoline] 25 mg PO BID-W/MEALS 03/10/21 08/18/21 Sertraline [Zoloft] 200 mg PO DAILY 08/18/21 08/18/21 tiZANidine [Zanaflex] 2 mg PO BID PRN 08/18/21 08/18/21 Previous Rx's Medication Instructions Recorded Atorvastatin [Lipitor] 80 mg PO HS #30 tab 08/06/19 Metoprolol Succinate (ER) [Toprol 50 mg PO DAILY #30 tab.er.24h 08/06/19 XL] Nitroglycerin Sl Tabs [Nitrostat] 0.4 mg SUBLINGUAL Q5M PRN #30 tab 02/19/20 Metoclopramide HCl [Reglan] 10 mg PO Q6HR PRN #10 tablet 08/18/21 Allergies Allergy/AdvReac Type Severity Reaction Status Date / Time No Known Allergies Allergy Verified 08/18/21 15:01 Review of Systems ROS Statement: Those systems with pertinent positive or pertinent negative responses have been documented in the HPI. ROS Other: All systems not noted in ROS Statement are negative. Constitutional: Denies: fever Eyes: Denies: eye pain ENT: Denies: ear pain Respiratory: Denies: cough Cardiovascular: Denies: chest pain Endocrine: Denies: fatigue Gastrointestinal: Denies: abdominal pain Genitourinary: Denies: dysuria Musculoskeletal: Denies: back pain Skin: Denies: rash Neurological: Reports: vertigo. Denies: headache, weakness, confusion Past Medical History Past Medical History: Coronary Artery Disease (CAD), Chest Pain / Angina, Heart Failure, Dementia, GERD/Reflux, Hyperlipidemia, Hypertension, Myocardial Infarction ([place]), Neurologic Disorder, Pneumonia, Prostate Disorder, Renal Disease, Skin Disorder, Sleep Apnea/CPAP/BIPAP Additional Past Medical History / Comment(s): early parkinson's with essential tremors, "lewy body dementia" R nephrolithiasis with surgery, EDITH with no CPAP, Irritable Bowel Syndrome diarrhea off and on, pneumonia/bronchitis, BPH, blood in stool-EGD/colonoscopy were normal, past hiatal hernia(sx), past falls., kidney failure, Last Myocardial Infarction Date:: 06/09/13 History of Any Multi-Drug Resistant Organisms: None Reported Past Surgical History: Back Surgery, Heart Catheterization, Heart Catheterization With Stent, Hernia Repair Additional Past Surgical History / Comment(s): 05/2013 stent to LAD and then a cardiac cath which showed stent patent, Recent R kidney stone removal, 03/19/15 Laparoscopic Elizabeth fundlaplication. SKIN GRAFTS CHEST & BACK FROM BASSETT AT 13 YRS OLD., COLONOSCOPY. EGD, L lazy eye surgery as toddler. Past Anesthesia/Blood Transfusion Reactions: No Reported Reaction Additional Past Anesthesia/Blood Transfusion Reaction / Comment(s): Pt received blood in 1967 without reaction. Date of Last Stent Placement:: 12/2017 Past Psychological History: Bipolar, Depression Smoking Status: Never smoker Past Alcohol Use History: None Reported Past Drug Use History: None Reported - Past Family History Mother Family Medical History: Liver Disease Additional Family Medical History / Comment(s): Mother was an alcoholic. She of cirrhosis of the liver at age 60yrs. Father Family Medical History: Cancer, Coronary Artery Disease (CAD), Myocardial Infarction (SD) Additional Family Medical History / Comment(s): SKIN CA. Father of a SD at age 65 yrs. Brother(s) Family Medical History: Cancer Additional Family Medical History / Comment(s): LEUKEMIA, LYMPH NODE CA AND MULTIPLE MYELOMA. General Exam Limitations: no limitations General appearance: alert, in no apparent distress Head exam: Present: normocephalic, other (Posterior scalp abrasion) Eye exam: Present: normal appearance, PERRL, EOMI. Absent: nystagmus ENT exam: Present: normal oropharynx Neck exam: Present: normal inspection. Absent: tenderness Respiratory exam: Present: normal lung sounds bilaterally Cardiovascular Exam: Present: regular rate, normal rhythm GI/Abdominal exam: Present: soft. Absent: tenderness Extremities exam: Present: normal inspection, full ROM. Absent: tenderness Neurological exam: Present: alert, oriented X3, CN II-XII intact. Absent: motor sensory deficit Expanded Neurological exam: Present: protecting the airway Patient oriented to: Present: person, place, time Speech: Present: fluid speech Cranial nerves: EOM's Intact: Normal Sensory exam: Upper Extremity Light Touch: Normal, Lower Extremity Light Touch: Normal Motor strength exam: RUE: 5, LUE: 5, RLE: 5, LLE: 5 Eye Response: (4) open spontaneously Motor Response: (6) obeys commands Verbal Response: (5) oriented Psychiatric exam: Present: normal affect, normal mood Skin exam: Present: normal color Course Vital Signs 08/18/21 12:47 Temperature 98.2 F Pulse Rate 78 Respiratory 20 Rate Blood Pressure 165/84 O2 Sat by Pulse 97 Oximetry Medical Decision Making - Medical Decision Making Patient reevaluated and feeling much better following medications. Patient states his symptoms seem to be somewhat worse following previous CT and did want repeat CT. Patient was updated on results. Patient is comfortable with discharge at this time. - Radiology Data Radiology results: report reviewed (brain CT shows no acute process) Disposition Clinical Impression: Dizziness, Head injury Disposition: HOME SELF-CARE Condition: Stable Instructions (If sedation given, give patient instructions): Dizziness (ED), Head Injury (ED) Additional Instructions: [id number] Antivert if needed. Prescription has been sent to pharmacy. Return for increased dizziness, weakness or confusion, worsening or change in symptoms or other concerns. Please do follow-up with your doctor in the next day or 2 for recheck. Prescriptions: Metoclopramide HCl [Reglan] 10 mg PO Q6HR PRN #10 tablet PRN Reason: Nausea Is patient prescribed a controlled substance at d/c from ED?: No Referrals: Román Gutierrez DO [Primary Care Provider] - 1-2 days Time of Disposition: 17:03
--- NOTE | 2021-08-18 15:57 | CT ---
EXAMINATION TYPE: CT brain wo con DATE OF EXAM: 08/18/2021 COMPARISON: 08/13/2021 INDICATION: headache, dizziness, falls DLP: 1099.4 mGycm, Automated exposure control for dose reduction was used. CONTRAST: None CT of the brain is performed utilizing 3 mm thick sections through the posterior fossa and 3 mm thick sections through the remaining calvarium. Study is performed within 24 hours of arrival to the hosp [facility]. No abnormal hyperdensity is present to suggest an acute intracranial hemorrhage. No mass lesion is evident. No acute infarcts are evident. Ventricles and sulci are appropriate for the patient age. Paranasal sinuses and mastoid air cells within the [id number] are clear. IMPRESSIONS: 1. No acute intracranial process.
[2021-08-18 17:12] VITALS: BP 150/78; PULSE 76; RESP 18
== END 2021-08-18 17:11 | disposition home or self-care (01) ==
LOC: EC 12:34
DX: S09.90XA Unspecified injury of head, initial encounter (principal); I11.0 Hypertensive heart disease with heart failure; I50.9 Heart failure, unspecified; I25.10 Atherosclerotic heart disease of native coronary artery without angina pectoris; F02.80 Dementia in other diseases classified elsewhere, unspecified severity, without behavioral disturbance, psychotic disturbance, mood disturbance, and anxiety; K21.9 Gastro-esophageal reflux disease without esophagitis; E78.5 Hyperlipidemia, unspecified; I25.2 Old myocardial infarction; F31.9 Bipolar disorder, unspecified; Z79.899 Other long term (current) drug therapy; W01.0XXA Fall on same level from slipping, tripping and stumbling without subsequent striking against object, initial encounter
CPT/HCPCS: 99284; 96372; 70450; J2765

== ENCOUNTER → 2022-01-25 | Outpatient (CLI) | payer MEDICARE ==
[2022-01-25 17:46] LABS: African American GFR (CKD) >90 (>60 ml/min/1.73 sqM); Blood Urea Nitrogen 17 mg/dL (9-20); Non-African American GFR(CKD) 85 (>60 ml/min/1.73 sqM)
--- NOTE | 2022-01-25 18:28 | CT ---
EXAMINATION TYPE: CT angio chest DATE OF EXAM: 01/25/2022 6:19 PM COMPARISON: Same-day radiograph. HISTORY: SOB CT DLP: 436.3 mGycm Automated exposure control for dose reduction was used. CONTRAST: CTA scan of the thorax is performed with IV Contrast, patient injected with 100 mL of Isovue 370, pul monary embolism protocol. MIP images are created and reviewed. FINDINGS: LUNGS: The lungs are grossly clear, there is no concerning parenchymal mass or nodule identified. T here is no pleural effusion or pneumothorax seen. The tracheobronchial tree is patent. MEDIASTINUM: There is satisfactory enhancement of the pulmonary artery and its branches, there is no CT evidence for pulmonary embolism. There are no greater than 1 cm hilar or mediastinal lymph nodes. There is moderate thoracic aorta and coronary atherosclerotic disease. There is ectasia of the asce nding aorta measuring up to 3.8 cm. No pericardial effusion is seen. OTHER: Remote healed right eighth rib fracture. No additional significant abnormality is seen. IMPRESSION: NO ACUTE PE OR CARDIOPULMONARY ABNORMALITY.
== END | disposition home or self-care (01) ==
LOC: RADCTMAIN 16:57
PROVIDERS: ATTEND Internal Medicine
DX: R06.02 Shortness of breath (principal)
CPT/HCPCS: 82565; 84520; 71275; Q9967

== ENCOUNTER 2022-11-19 17:13 | Inpatient (IN) | payer MEDICARE ==
[2022-11-19] MEDS ORDERED: ALBUTEROL HFA INHALER INHALATION STA (17:40)
[2022-11-19] MEDS ORDERED: DEXAMETHASONE SOD PHOSPHATE 10 MG/ML 1 ML VIAL IM STA (17:40)
[2022-11-19] MEDS ORDERED: DEXAMETHASONE SOD PHOSPHATE 10 MG/ML 1 ML VIAL IVP STA (17:47)
--- NOTE | 2022-11-19 17:49 | ED ---
URI HPI - General Chief Complaint: Upper Respiratory Infection Stated Complaint: ANUJ, chest pain Time Seen by Provider: 11/19/22 17:32 Source: patient, RN notes reviewed, old records reviewed Mode of arrival: ambulatory Limitations: no limitations - History of Present Illness Initial Comments: 67-year-old male presents with 2 days of low grade fever 99, cough, shortness of breath and tickle in his throat. Denies any sick contacts. Did see his primary care yesterday and x-ray was negative and influenza swab negative. States continues to have persistent cough and shortness of breath. Patient states chest pain worse with deep breaths or coughing. MD Complaint: fever, cough, sore throat, nasal congestion -: days(s) (2) Severity scale (1-10): 6 Consistency: intermittent Worsens With: deep breaths (cough) - Related Data Home Medications Medication Instructions Recorded Confirmed Primidone [Mysoline] 150 mg PO BID 12/20/17 11/19/22 Memantine [Namenda] 10 mg PO BID 02/17/20 11/19/22 Pramipexole Di-HCl [Mirapex] 1.5 mg PO HS 02/17/20 11/19/22 Furosemide [Lasix] 40 mg PO DAILY 03/10/21 11/19/22 Pregabalin [Lyrica] 200 mg PO HS 03/10/21 11/19/22 QUEtiapine [SEROquel] 100 mg PO HS 03/10/21 11/19/22 hydrALAZINE HCL [Apresoline] 25 mg PO DAILY 03/10/21 11/19/22 Sertraline [Zoloft] 200 mg PO HS 08/18/21 11/19/22 tiZANidine [Zanaflex] 2 mg PO BID PRN 08/18/21 11/19/22 Ibuprofen [Motrin] 800 mg PO TID PRN 11/19/22 11/19/22 Metoprolol Succinate [Metoprolol 25 mg PO DAILY 11/19/22 11/19/22 Succinate ER] predniSONE [Deltasone] 20 mg PO DIRECTED 11/19/22 11/19/22 Previous Rx's Medication Instructions Recorded Atorvastatin [Lipitor] 80 mg PO HS #30 tab 08/06/19 Nitroglycerin Sl Tabs [Nitrostat] 0.4 mg SUBLINGUAL Q5M PRN #30 tab 02/19/20 Allergies Allergy/AdvReac Type Severity Reaction Status Date / Time No Known Allergies Allergy Verified 11/19/22 19:20 Review of Systems ROS Statement: Those systems with pertinent positive or pertinent negative responses have been documented in the HPI. ROS Other: All systems not noted in ROS Statement are negative. Past Medical History Past Medical History: Coronary Artery Disease (CAD), Chest Pain / Angina, Heart Failure, Dementia, GERD/Reflux, Hyperlipidemia, Hypertension, Myocardial Infarction ([place]), Neurologic Disorder, Pneumonia, Prostate Disorder, Renal Disease, Skin Disorder, Sleep Apnea/CPAP/BIPAP Additional Past Medical History / Comment(s): early parkinson's with essential tremors, "lewy body dementia" R nephrolithiasis with surgery, EDITH with no CPAP, Irritable Bowel Syndrome diarrhea off and on, pneumonia/bronchitis, BPH, blood in stool-EGD/colonoscopy were normal, past hiatal hernia(sx), past falls., kidney failure, Last Myocardial Infarction Date:: 06/09/13 History of Any Multi-Drug Resistant Organisms: None Reported Past Surgical History: Back Surgery, Heart Catheterization, Heart Catheterization With Stent, Hernia Repair Additional Past Surgical History / Comment(s): 05/2013 stent to LAD and then a cardiac cath which showed stent patent, Recent R kidney stone removal, 03/19/15 Laparoscopic Elizabeth fundlaplication. SKIN GRAFTS CHEST & BACK FROM BASSETT AT 13 YRS OLD., COLONOSCOPY. EGD, L lazy eye surgery as toddler. Past Anesthesia/Blood Transfusion Reactions: No Reported Reaction Additional Past Anesthesia/Blood Transfusion Reaction / Comment(s): Pt received blood in 1967 without reaction. Date of Last Stent Placement:: 12/2017 Past Psychological History: Bipolar, Depression Smoking Status: Never smoker Past Alcohol Use History: None Reported Past Drug Use History: None Reported - Past Family History Mother Family Medical History: Liver Disease Additional Family Medical History / Comment(s): Mother was an alcoholic. She of cirrhosis of the liver at age 60yrs. Father Family Medical History: Cancer, Coronary Artery Disease (CAD), Myocardial Infarction ([place]) Additional Family Medical History / Comment(s): SKIN CA. Father of a [place] at age 65 yrs. Brother(s) Family Medical History: Cancer Additional Family Medical History / Comment(s): LEUKEMIA, LYMPH NODE CA AND MULTIPLE MYELOMA. General Exam Limitations: no limitations General appearance: alert, in no apparent distress Head exam: Present: atraumatic Eye exam: Absent: scleral icterus, conjunctival injection, periorbital swelling ENT exam: Present: mucous membranes moist Expanded Mouth exam: Present: tongue normal, tongue elevation. Absent: drooling, son mus, muffled voice Throat exam: negative: tonsillar erythema, tonsillar exudate, R peritonsillar mass, L peritonsillar mass Neck exam: Absent: tenderness, meningismus, lymphadenopathy Respiratory exam: Present: wheezes (Bilateral expiratory). Absent: respiratory distress, rales, rhonchi, stridor, chest wall tenderness, decreased breath sounds Cardiovascular Exam: Present: regular rate GI/Abdominal exam: Present: soft. Absent: distended, tenderness, rigid Extremities exam: Present: normal capillary refill. Absent: pedal edema Back exam: Present: other (old lumbar surgical scar). Absent: tenderness, CVA tenderness (R), CVA tenderness (L), rash noted Neurological exam: Present: alert, oriented X3 Psychiatric exam: Present: normal affect, normal mood Skin exam: Present: warm, dry, normal color. Absent: rash, cyanosis, diaphoretic, petechiae, pallor Course Vital Signs 11/19/22 11/19/22 11/19/22 17:18 19:00 19:05 Temperature 99.1 F Pulse Rate 91 78 75 Respiratory 16 24 Rate Blood Pressure 178/93 151/92 O2 Sat by Pulse 96 93 L Oximetry 11/19/22 11/19/22 11/19/22 19:15 19:20 20:18 Temperature Pulse Rate 92 81 Respiratory 20 Rate Blood Pressure 151/92 O2 Sat by Pulse 98 Oximetry 11/19/22 11/19/22 20:47 21:21 Temperature 98.7 F Pulse Rate 95 90 Respiratory 20 Rate Blood Pressure 141/95 O2 Sat by Pulse 95 Oximetry - Reevaluation(s) Reevaluation #1: 11/19/22 20:12 Lab contacted by Darren CARLISLE regarding troponin result, test was not run and state will run it at this time. Patient remains with expiratory wheezes bilaterally. Repeat treatment ordered, oxygen sat 98% on room air 11/19/22 20:12 Time: 20:11 Medical Decision Making - Medical Decision Making No evidence of leukocytosis. Troponin negative at 0.016. EKG shows some ST depression in leads II and III which are not seen compared to old February 2021. Patient states has chest tightness with deep breath or coughing. Chest x-ray shows no acute cardiopulmonary disease. This is likely pleuritic due to a viral URI as he does have bilateral expiratory wheezes which improved after albuterol treatment. Case discussed with Dr. Lujan and due to patient's significant cardiac history and ekg changes will be admitted to the hospital. I did discuss heparin with Dr. Delgadillo and will hold at this time until repeat troponin. Aspirin was given. Patient is agreeable to admission. - Lab Data Result diagrams: 11/19/22 18:22 11/19/22 18:22 Lab Results 11/19/22 11/19/22 11/19/22 Range/Units 17:22 18:22 18:22 WBC 7.7 (3.8-10.6) k/uL RBC 4.25 L (4.30-5.90) m/uL Hgb 13.0 (13.0-17.5) gm/dL Hct 38.5 L (39.0-53.0) % MCV 90.5 (80.0-100.0) fL MCH 30.6 (25.0-35.0) pg MCHC 33.8 (31.0-37.0) g/dL RDW 15.1 (11.5-15.5) % Plt Count 174 (150-450) k/uL MPV 7.6 Neutrophils % 79 % Lymphocytes % 8 % Monocytes % 6 % Eosinophils % 5 % Basophils % 1 % Neutrophils # 6.1 (1.3-7.7) k/uL Lymphocytes # 0.6 L (1.0-4.8) k/uL Monocytes # 0.5 (0-1.0) k/uL Eosinophils # 0.4 (0-0.7) k/uL Basophils # 0.1 (0-0.2) k/uL Sodium 140 (137-145) mmol/L Potassium 4.1 (3.5-5.1) mmol/L Chloride 105 (98-107) mmol/L Carbon Dioxide 25 (22-30) mmol/L Anion Gap 10 mmol/L BUN 11 (9-20) mg/dL Creatinine 0.88 (0.66-1.25) mg/dL Est GFR (CKD-EPI)AfAm >90 (>60 ml/min/1.73 sqM) Est GFR (CKD-EPI)NonAf 90 (>60 ml/min/1.73 sqM) Glucose 95 (74-99) mg/dL Calcium 8.0 L (8.4-10.2) mg/dL Total Bilirubin 0.7 (0.2-1.3) mg/dL AST 32 (17-59) U/L ALT 24 (4-49) U/L Alkaline Phosphatase 79 (38-126) U/L Troponin I (0.000-0.034) ng/mL Total Protein 6.6 (6.3-8.2) g/dL Albumin 3.7 (3.5-5.0) g/dL Influenza Type A (PCR) Not Detected (Not Detectd) Influenza Type B (PCR) Not Detected (Not Detectd) RSV (PCR) Not Detected (Not Detectd) SARS-CoV-2 (PCR) Not Detected (Not Detectd) 11/19/22 Range/Units 18:22 WBC (3.8-10.6) k/uL RBC (4.30-5.90) m/uL Hgb (13.0-17.5) gm/dL Hct (39.0-53.0) % MCV (80.0-100.0) fL MCH (25.0-35.0) pg MCHC (31.0-37.0) g/dL RDW (11.5-15.5) % Plt Count (150-450) k/uL MPV Neutrophils % % Lymphocytes % % Monocytes % % Eosinophils % % Basophils % % Neutrophils # (1.3-7.7) k/uL Lymphocytes # (1.0-4.8) k/uL Monocytes # (0-1.0) k/uL Eosinophils # (0-0.7) k/uL Basophils # (0-0.2) k/uL Sodium (137-145) mmol/L Potassium (3.5-5.1) mmol/L Chloride (98-107) mmol/L Carbon Dioxide (22-30) mmol/L Anion Gap mmol/L BUN (9-20) mg/dL Creatinine (0.66-1.25) mg/dL Est GFR (CKD-EPI)AfAm (>60 ml/min/1.73 sqM) Est GFR (CKD-EPI)NonAf (>60 ml/min/1.73 sqM) Glucose (74-99) mg/dL Calcium (8.4-10.2) mg/dL Total Bilirubin (0.2-1.3) mg/dL AST (17-59) U/L ALT (4-49) U/L Alkaline Phosphatase (38-126) U/L Troponin I 0.016 (0.000-0.034) ng/mL Total Protein (6.3-8.2) g/dL Albumin (3.5-5.0) g/dL Influenza Type A (PCR) (Not Detectd) Influenza Type B (PCR) (Not Detectd) RSV (PCR) (Not Detectd) SARS-CoV-2 (PCR) (Not Detectd) - EKG Data EKG shows normal: sinus rhythm (Sinus rhythm with a ventricular rate of 86, IL interval 0.160, QRS 0.94, QTC 0.449; indeterminate axis; compared to old EKG for 03/10/21) Disposition Clinical Impression: Chest pain Disposition: ADMITTED IP TO THIS [facility] Condition: Good Decision Date: 11/19/22 Decision Time: 20:48
--- NOTE | 2022-11-19 18:21 | XR ---
EXAMINATION TYPE: XR chest 2V DATE OF EXAM: 11/19/2022 COMPARISON: 01/25/2022 HISTORY: Short of breath TECHNIQUE: 2 view FINDINGS: Heart is normal. Lungs are clear of consolidation. There are no hilar masses. Costophrenic angles are clear. IMPRESSION: No active cardiopulmonary disease. No change.
[2022-11-19 18:33] LABS: Basophils # (A) 0.1 k/uL (0-0.2); Basophils % (A) 1 %; Eosinophils # (A) 0.4 k/uL (0-0.7); Eosinophils % (A) 5 %; HCT 38.5 % (39.0-53.0); Lymphocytes # (A) 0.6 k/uL (1.0-4.8); Lymphocytes % (A) 8 %; MCH 30.6 pg (25.0-35.0); MCHC 33.8 g/dL (31.0-37.0); MCV 90.5 fL (80.0-100.0); Mean Platelet Volume 7.6; Monocytes # (A) 0.5 k/uL (0-1.0); Monocytes % (A) 6 %; Neutrophils # (A) 6.1 k/uL (1.3-7.7); Neutrophils % (A) 79 %; Platelet Count 174 k/uL (150-450); RBC 4.25 m/uL (4.30-5.90); RDW 15.1 % (11.5-15.5); WBC 7.7 k/uL (3.8-10.6)
[2022-11-19] MEDS ORDERED: IPRATROPIUM-ALBUTEROL 3 ML NEB INHALATION STA (18:43)
[2022-11-19 18:49] LABS: Chloride 105 mmol/L (98-107); Potassium 4.1 mmol/L (3.5-5.1)
[2022-11-19 18:50] LABS: ALT 24 U/L (4-49); AST 32 U/L (17-59); African American GFR (CKD) >90 (>60 ml/min/1.73 sqM); Albumin 3.7 g/dL (3.5-5.0); Alkaline Phosphatase 79 U/L (38-126); Anion Gap 10 mmol/L; Blood Urea Nitrogen 11 mg/dL (9-20); Carbon Dioxide 25 mmol/L (22-30); Glucose 95 mg/dL (74-99); Non-African American GFR(CKD) 90 (>60 ml/min/1.73 sqM); Sodium 140 mmol/L (137-145); Total Bilirubin 0.7 mg/dL (0.2-1.3); Total Protein 6.6 g/dL (6.3-8.2)
[2022-11-19] MEDS ORDERED: ALBUTEROL NEBULIZED 2.5 MG/3 ML INHALATION STA (20:13)
[2022-11-19] MEDS ORDERED: NALOXONE 0.4 MG/ML 1 ML VIAL IV PRN (20:47)
[2022-11-19] MEDS ORDERED: ASPIRIN 81 MG PO STA (20:50)
[2022-11-19] MEDS ORDERED: tiZANidine 4 MG TAB PO PRN (22:00)
[2022-11-19] MEDS: MEMANTINE 10 MG TAB PO SCH (23:46)
[2022-11-19] MEDS: ATORVASTATIN 80 MG TAB PO SCH (23:46)
[2022-11-19] MEDS: QUEtiapine 100 MG TAB PO SCH (23:47)
[2022-11-19] MEDS: PRAMIPEXOLE 0.5 MG TAB PO SCH (23:47)
[2022-11-19] MEDS: SERTRALINE 100 MG TAB PO SCH (23:47)
[2022-11-19] MEDS: PREGABALIN 100 MG CAP PO SCH (23:47)
[2022-11-19] MEDS: PRIMIDONE 50 MG TAB PO SCH (23:47)
--- NOTE | 2022-11-20 01:21 | P.HPIM ---
History of Present Illness H&P Date: 11/19/22 The patient is a 67-year-old male with a PMH of CAD status post stenting, chronic diastolic CHF, hyperlipidemia, hypertension who presented to the emergency room with complaints of chest discomfort. The patient states that this past morning, he gradually developed a sharp substernal chest discomfort, 7 out of 10 on maximal intensity, pleuritic in nature, nonradiating, and constant. The patient was ultimately seen at an urgent care center where a chest x-ray and EKG were unremarkable. The patient reports however that he continued having the chest discomfort without became accompanied with shortness of breath, dry cough, and wheezing. He subsequently decided to come to the emergency room. Upon arrival at the emergency room the vital signs were BP 170/93, pulse 91, SpO2 96% on room air, and temp 99.1F. EKG had revealed normal sinus rhythm at 86 bpm with poor R-wave progression and biphasic inferior lead Q waves as reviewed by me. Chest x-ray was unremarkable. Laboratory evaluation was remarkable for troponin of 0.016. Review of systems: Pertinent positives and negatives as discussed in HPI, a complete review of systems was performed and all other systems are negative. Physical examination: General: non toxic, no distress, appears older than stated age, obese Derm: no unusual rashes/lesions, warm Head: atraumatic, normocephalic, symmetric Eyes: EOMI, no lid lag, anicteric sclera, pupils equal round reactive to light ENT: Nose and ears atraumatic Neck: No cervical lymphadenopathy, trachea midline, supple Mouth: no lip lesion, mucus membranes moist Cardiovascular: S1S2 reg, no murmur, positive dorsalis pedis pulse bilateral, no edema Lungs: Diffuse expiratory wheezing with some rhonchi noted, no rales, no accessory muscle use Abdominal: soft, nontender to palpation, no guarding Ext: muscle strength 5 out of 5 in all 4 extremities grossly, no gross muscle atrophy, no contractures, Neuro: CN II-XI grossly intact, no gross focal neuro deficits Psych: Alert, oriented, appropriate affect Assessment/plan Atypical Chest pain, rule out ACS -Cardiac monitoring -Cardiology consulted -Continue with aspirin, statin -Trend troponin -Echocardiogram Chronic conditions: Diastolic CHF, hyperlipidemia, hypertension -Continue with home meds DVT prophylaxis -Heparin subcu The patient is admitted with an anticipated less than 2 midnight stay for evaluation of chest pain CODE STATUS: Full Code Discussed with: Patient Anticipated discharge date: in am Anticipated discharge place: Home Past Medical History Past Medical History: Coronary Artery Disease (CAD), Chest Pain / Angina, Heart Failure, Dementia, GERD/Reflux, Hyperlipidemia, Hypertension, Myocardial Infarction ([place]), Neurologic Disorder, Pneumonia, Prostate Disorder, Renal Disease, Skin Disorder, Sleep Apnea/CPAP/BIPAP Additional Past Medical History / Comment(s): early parkinson's with essential tremors, "lewy body dementia" R nephrolithiasis with surgery, EDITH with no CPAP, Irritable Bowel Syndrome diarrhea off and on, pneumonia/bronchitis, BPH, blood in stool-EGD/colonoscopy were normal, past hiatal hernia(sx), past falls., kidney failure, Last Myocardial Infarction Date:: 06/09/13 History of Any Multi-Drug Resistant Organisms: None Reported Past Surgical History: Back Surgery, Heart Catheterization, Heart Catheterizatio n With Stent, Hernia Repair Additional Past Surgical History / Comment(s): 05/2013 stent to LAD and then a cardiac cath which showed stent patent, Recent R kidney stone removal, 03/19/15 Laparoscopic Elizabeth fundlaplication. SKIN GRAFTS CHEST & BACK FROM BASSETT AT 13 YRS OLD., COLONOSCOPY. EGD, L lazy eye surgery as toddler. Past Anesthesia/Blood Transfusion Reactions: No Reported Reaction Additional Past Anesthesia/Blood Transfusion Reaction / Comment(s): Pt received blood in 1967 without reaction. Date of Last Stent Placement:: 12/2017 Past Psychological History: Bipolar, Depression Smoking Status: Never smoker Past Alcohol Use History: None Reported Past Drug Use History: None Reported - Past Family History Mother Family Medical History: Liver Disease Additional Family Medical History / Comment(s): Mother was an alcoholic. She of cirrhosis of the liver at age 60yrs. Father Family Medical History: Cancer, Coronary Artery Disease (CAD), Myocardial Infarction ([place]) Additional Family Medical History / Comment(s): SKIN CA. Father of a [place] at age 65 yrs. Brother(s) Family Medical History: Cancer Additional Family Medical History / Comment(s): LEUKEMIA, LYMPH NODE CA AND MULTIPLE MYELOMA. Medications and Allergies Home Medications Medication Instructions Recorded Confirmed Type Primidone [Mysoline] 150 mg PO BID 12/20/17 11/19/22 History Atorvastatin [Lipitor] 80 mg PO HS #30 tab 08/06/19 11/19/22 Rx Memantine [Namenda] 10 mg PO BID 02/17/20 11/19/22 History Pramipexole Di-HCl [Mirapex] 1.5 mg PO HS 02/17/20 11/19/22 History Nitroglycerin Sl Tabs [Nitrostat] 0.4 mg SUBLINGUAL Q5M PRN #30 tab 02/19/20 11/19/22 Rx Furosemide [Lasix] 40 mg PO DAILY 03/10/21 11/19/22 History Pregabalin [Lyrica] 200 mg PO HS 03/10/21 11/19/22 History QUEtiapine [SEROquel] 100 mg PO HS 03/10/21 11/19/22 History hydrALAZINE HCL [Apresoline] 25 mg PO DAILY 03/10/21 11/19/22 History Sertraline [Zoloft] 200 mg PO HS 08/18/21 11/19/22 History tiZANidine [Zanaflex] 2 mg PO BID PRN 08/18/21 11/19/22 History Ibuprofen [Motrin] 800 mg PO TID PRN 11/19/22 11/19/22 History Metoprolol Succinate [Metoprolol 25 mg PO DAILY 11/19/22 11/19/22 History Succinate ER] predniSONE [Deltasone] 20 mg PO DIRECTED 11/19/22 11/19/22 History Allergies Allergy/AdvReac Type Severity Reaction Status Date / Time No Known Allergies Allergy Verified 11/19/22 19:20 Physical Exam Vitals: Vital Signs Temp Pulse Pulse Resp BP BP Pulse Ox 11/20/22 00:00 86 19 11/19/22 22:19 98.4 F 86 19 144/84 95 11/19/22 21:21 98.7 F 90 20 141/95 95 11/19/22 20:47 95 11/19/22 20:18 81 11/19/22 19:20 20 151/92 98 11/19/22 19:15 92 11/19/22 19:05 75 11/19/22 19:00 78 24 151/92 93 L 11/19/22 17:18 99.1 F 91 16 178/93 96 Intake and Output 11/19/22 11/19/22 11/20/22 14:59 22:59 06:59 Other: Weight 108.862 kg Results CBC & Chem 7: 11/19/22 18:22 11/19/22 18:22 Labs: Abnormal Lab Results - Last 24 Hours (Table) 11/19/22 11/19/22 Range/Units 18:22 18:22 RBC 4.25 L (4.30-5.90) m/uL Hct 38.5 L (39.0-53.0) % Lymphocytes # 0.6 L (1.0-4.8) k/uL Calcium 8.0 L (8.4-10.2) mg/dL Thrombosis Risk Factor Assmnt - Choose All That Apply Each Factor Represents 1 point: Abnormal pulmonary function (COPD), Obesity (BMI >25) Other Risk Factors: Yes Each Risk Factor Represents 2 Points: Age 61-74 years Other congenital or acquired thrombophilia - If yes, enter type in comment: No Thrombosis Risk Factor Assessment Total Risk Factor Score: 4 Thrombosis Risk Factor Assessment Level: Moderate Risk
[2022-11-20 06:28] LABS: Basophils % (A) 0 %; Eosinophils % (A) 0 %; HCT 36.1 % (39.0-53.0); HGB 12.3 gm/dL (13.0-17.5); Lymphocytes # (A) 0.4 k/uL (1.0-4.8); Lymphocytes % (A) 6 %; MCV 91.2 fL (80.0-100.0); Monocytes # (A) 0.4 k/uL (0-1.0); Monocytes % (A) 6 %; Neutrophils # (A) 5.2 k/uL (1.3-7.7); Neutrophils % (A) 86 %; Platelet Count 181 k/uL (150-450); RBC 3.96 m/uL (4.30-5.90); RDW 14.9 % (11.5-15.5)
[2022-11-20 06:36] LABS: African American GFR (CKD) >90 (>60 ml/min/1.73 sqM); Anion Gap 7 mmol/L; Blood Urea Nitrogen 16 mg/dL (9-20); Calcium 8.1 mg/dL (8.4-10.2); Carbon Dioxide 25 mmol/L (22-30); Chloride 107 mmol/L (98-107); Glucose 172 mg/dL (74-99); Non-African American GFR(CKD) >90 (>60 ml/min/1.73 sqM); Potassium 4.2 mmol/L (3.5-5.1); Sodium 139 mmol/L (137-145)
[2022-11-20] MEDS: HEPARIN SODIUM,PORCINE/PF 5,000 UNIT/0.5 ML SYRINGE SQ SCH ×3 (08:21→22:57)
[2022-11-20] MEDS: hydrALAZINE HCL 25 MG TAB PO SCH (08:22)
[2022-11-20] MEDS ORDERED: IPRATROPIUM-ALBUTEROL 3 ML NEB INHALATION PRN (08:32)
[2022-11-20] MEDS: PRIMIDONE 50 MG TAB PO SCH ×2 (08:34→21:47)
[2022-11-20] MEDS: MEMANTINE 10 MG TAB PO SCH ×2 (08:34→21:47)
[2022-11-20] MEDS ORDERED: predniSONE 20 MG TAB PO SCH (09:00)
[2022-11-20] MEDS ORDERED: FUROSEMIDE 40 MG TAB PO SCH (09:00)
--- NOTE | 2022-11-20 10:30 | P.CRDCN ---
History of Present Illness Consult date: 11/20/22 Chief complaint: Shortness of breath and chest pain History of present illness: The patient is a pleasant 67-year-old gentleman with a past medical history significant for CAD with prior stenting of the LCx and LAD and RCA as well as heart failure with preserved ejection fraction as well as hypertension and dyslipidemia presented complaining of chest discomfort and shortness of breath. The symptoms started mainly was shortness of breath over the last week or so associated with cough not productive of any sputum. No fever and no chills. No lower extremities edema noted. Subsequently because he continues to cough extensively he developed chest discomfort. The discomfort as a sharp kind of discomfort mainly with cough but sometimes without cough. No dizziness or lightheadedness and no feeling of heart racing or fluttering and no presyncope or syncope. He gained about 5 pounds within a week. Because of the shortness of breath and chest discomfort. To continue the emergency department if he underwent a workup including a chest x-ray did not show any acute abnormalities. EKG showed sinus rhythm was no significant changes. The troponin came in to be unremarkable. No NT proBNP was checked but we are in process of getting that checked. His oxygen saturation was borderline on room air but better on oxygen through nasal cannula. On examination he definitely have bilateral expiratory wheezing as well as bilateral rhonchi and he seems to be in heart failure. Past Medical History Past Medical History: Coronary Artery Disease (CAD), Chest Pain / Angina, Heart Failure, Dementia, GERD/Reflux, Hyperlipidemia, Hypertension, Myocardial Infarction ([place]), Neurologic Disorder, Pneumonia, Prostate Disorder, Renal Disease, Skin Disorder, Sleep Apnea/CPAP/BIPAP Additional Past Medical History / Comment(s): early parkinson's with essential tremors, "lewy body dementia" R nephrolithiasis with surgery, EDITH with no CPAP, Irritable Bowel Syndrome diarrhea off and on, pneumonia/bronchitis, BPH, blood in stool-EGD/colonoscopy were normal, past hiatal hernia(sx), past falls., kidney failure, Last Myocardial Infarction Date:: 06/09/13 History of Any Multi-Drug Resistant Organisms: None Reported Past Surgical History: Back Surgery, Heart Catheterization, Heart Catheterization With Stent, Hernia Repair Additional Past Surgical History / Comment(s): 05/2013 stent to LAD and then a cardiac cath which showed stent patent, Recent R kidney stone removal, 03/19/15 Laparoscopic Elizabeth fundlaplication. SKIN GRAFTS CHEST & BACK FROM BASSETT AT 13 YRS OLD., COLONOSCOPY. EGD, L abdiely eye surgery as toddler. Past Anesthesia/Blood Transfusion Reactions: No Reported Reaction Additional Past Anesthesia/Blood Transfusion Reaction / Comment(s): Pt received blood in 1967 without reaction. Date of Last Stent Placement:: 12/2017 Past Psychological History: Bipolar, Depression Smoking Status: Never smoker Past Alcohol Use History: None Reported Past Drug Use History: None Reported - Past Family History Mother Family Medical History: Liver Disease Additional Family Medical History / Comment(s): Mother was an alcoholic. She of cirrhosis of the liver at age 60yrs. Father Family Medical History: Cancer, Coronary Artery Disease (CAD), Myocardial Infarction ([place]) Additional Family Medical History / Comment(s): SKIN CA. Father of a [place] at age 65 yrs. Brother(s) Family Medical History: Cancer Additional Family Medical History / Comment(s): LEUKEMIA, LYMPH NODE CA AND MULTIPLE MYELOMA. Medications and Allergies Home Medications Medication Instructions Recorded Confirmed Type Primidone [Mysoline] 150 mg PO BID 12/20/17 11/19/22 History Atorvastatin [Lipitor] 80 mg PO HS #30 tab 08/06/19 11/19/22 Rx Memantine [Namenda] 10 mg PO BID 02/17/20 11/19/22 History Pramipexole Di-HCl [Mirapex] 1.5 mg PO HS 02/17/20 11/19/22 History Nitroglycerin Sl Tabs [Nitrostat] 0.4 mg SUBLINGUAL Q5M PRN #30 tab 02/19/20 11/19/22 Rx Furosemide [Lasix] 40 mg PO DAILY 03/10/21 11/19/22 History Pregabalin [Lyrica] 200 mg PO HS 03/10/21 11/19/22 History QUEtiapine [SEROquel] 100 mg PO HS 03/10/21 11/19/22 History hydrALAZINE HCL [Apresoline] 25 mg PO DAILY 03/10/21 11/19/22 History Sertraline [Zoloft] 200 mg PO HS 08/18/21 11/19/22 History tiZANidine [Zanaflex] 2 mg PO BID PRN 08/18/21 11/19/22 History Ibuprofen [Motrin] 800 mg PO TID PRN 11/19/22 11/19/22 History Metoprolol Succinate [Metoprolol 25 mg PO DAILY 11/19/22 11/19/22 History Succinate ER] predniSONE [Deltasone] 20 mg PO DIRECTED 11/19/22 11/19/22 History Allergies Allergy/AdvReac Type Severity Reaction Status Date / Time No Known Allergies Allergy Verified 11/19/22 19:20 Physical Exam Vitals: Vital Signs Temp Pulse Pulse Resp BP BP Pulse Ox 11/20/22 09:08 78 11/20/22 08:56 93 L 11/20/22 08:52 85 11/20/22 08:21 22 11/20/22 07:00 97.4 F L 64 22 110/72 95 11/20/22 01:49 97.8 F 85 20 135/84 93 L 11/20/22 00:00 86 19 11/19/22 22:19 98.4 F 86 19 144/84 95 11/19/22 21:21 98.7 F 90 20 141/95 95 11/19/22 20:47 95 11/19/22 20:18 81 11/19/22 19:20 20 151/92 98 11/19/22 19:15 92 11/19/22 19:05 75 11/19/22 19:00 78 24 151/92 93 L 11/19/22 17:18 99.1 F 91 16 178/93 96 Intake and Output 11/19/22 11/20/22 11/20/22 22:59 06:59 14:59 Other: Voiding Method Toilet # Voids 2 3 Weight 108.862 kg - Constitutional General appearance: no acute distress - Respiratory Respiratory: bilateral: rhonchi, wheezing - Cardiovascular Rhythm: regular Results 11/20/22 05:06 11/20/22 05:06 Cardiac Enzymes 11/19/22 11/19/22 11/19/22 Range/Units 18:22 18:22 21:09 AST 32 (17-59) U/L Troponin I 0.016 0.020 (0.000-0.034) ng/mL 11/20/22 Range/Units 00:22 AST (17-59) U/L Troponin I 0.015 (0.000-0.034) ng/mL CBC 11/19/22 11/20/22 Range/Units 18:22 05:06 WBC 7.7 6.0 (3.8-10.6) k/uL RBC 4.25 L 3.96 L (4.30-5.90) m/uL Hgb 13.0 12.3 L (13.0-17.5) gm/dL Hct 38.5 L 36.1 L (39.0-53.0) % Plt Count 174 181 (150-450) k/uL Comprehensive Metabolic Panel 11/19/22 11/20/22 Range/Units 18:22 05:06 Sodium 140 139 (137-145) mmol/L Potassium 4.1 4.2 (3.5-5.1) mmol/L Chloride 105 107 (98-107) mmol/L Carbon Dioxide 25 25 (22-30) mmol/L BUN 11 16 (9-20) mg/dL Creatinine 0.88 0.87 (0.66-1.25) mg/dL Glucose 95 172 H (74-99) mg/dL Calcium 8.0 L 8.1 L (8.4-10.2) mg/dL AST 32 (17-59) U/L ALT 24 (4-49) U/L Alkaline Phosphatase 79 (38-126) U/L Total Protein 6.6 (6.3-8.2) g/dL Albumin 3.7 (3.5-5.0) g/dL Current Medications Generic Name Dose Route Start Last Admin Trade Name Freq PRN Reason Stop Dose Admin Acetaminophen 650 mg 11/19/22 20:47 Acetaminophen Tab 325 Mg Tab PO Q6HR PRN Mild Pain or Fever > 100.5 Albuterol/Ipratropium 3 ml 11/20/22 08:32 11/20/22 08:52 Ipratropium-Albuterol 3 Ml Neb INHALATION 3 ml RT-Q2H PRN Administration Shortness Of Breath Or Wheezing Albuterol/Ipratropium 3 ml 11/20/22 12:00 Ipratropium-Albuterol 3 Ml Neb INHALATION RT-Q4H DELORES Atorvastatin Calcium 80 mg 11/19/22 23:00 11/19/22 23:46 Atorvastatin 80 Mg Tab PO 80 mg HS DELORES Administration Furosemide 40 mg 11/20/22 09:00 11/20/22 08:22 Furosemide 40 Mg Tab PO 40 mg DAILY DELORES Administration Heparin Sodium (Porcine) 5,000 unit 11/20/22 08:00 11/20/22 08:21 Heparin Sodium,Porcine/Pf 5,000 Unit/0.5 Ml Syringe SQ 5,000 unit Q8HR DELORES Administration Hydralazine HCl 25 mg 11/20/22 09:00 11/20/22 08:22 Hydralazine Hcl 25 Mg Tab PO 25 mg DAILY DELORES Administration Memantine 10 mg 11/19/22 23:00 11/20/22 08:34 Memantine 10 Mg Tab PO 10 mg BID DELORES Administration Metoprolol Succinate 25 mg 11/20/22 09:00 Metoprolol Succinate (Er) 25 Mg Tab.Er.24h PO DAILY DELORES Naloxone HCl 0.2 mg 11/19/22 20:47 Naloxone 0.4 Mg/Ml 1 Ml Vial IV Q2M PRN Opioid Reversal Pramipexole Dihydrochloride 1.5 mg 11/19/22 23:00 11/19/22 23:47 Pramipexole 0.5 Mg Tab PO 1.5 mg HS DELORES Administration Prednisone 20 mg 11/20/22 09:00 Prednisone 20 Mg Tab PO DIRECTED DELORES Pregabalin 200 mg 11/19/22 23:00 11/19/22 23:47 Pregabalin 100 Mg Cap PO 200 mg HS DELORES Administration Primidone 150 mg 11/19/22 23:00 11/20/22 08:34 Primidone 50 Mg Tab PO 150 mg BID DELORES Administration Quetiapine Fumarate 100 mg 11/19/22 23:00 11/19/22 23:47 Quetiapine 100 Mg Tab PO 100 mg HS DELORES Administration Sertraline HCl 200 mg 11/19/22 23:00 11/19/22 23:47 Sertraline 100 Mg Tab PO 200 mg HS DELORES Administration Tizanidine HCl 2 mg 11/19/22 22:00 Tizanidine 4 Mg Tab PO BID PRN Muscle Spasm Intake and Output 11/19/22 11/20/22 11/20/22 22:59 06:59 14:59 Other: Voiding Method Toilet # Voids 2 3 Weight 108.862 kg 11/20/22 05:06 11/20/22 05:06 Assessment and Plan Assessment: Assessment Heart failure with preserved ejection fraction exacerbation CAD with a prior stenting as described above Multiple comorbid conditions Plan DC Lasix by mouth and start the patient on Lasix IV Monitor the kidney function and electrolytes Follow-up with the patient
[2022-11-20] MEDS: METOPROLOL SUCCINATE (ER) 25 MG TAB.ER.24H PO SCH (10:33)
[2022-11-20] MEDS: IPRATROPIUM-ALBUTEROL 3 ML NEB INHALATION SCH ×4 (12:06→23:15)
[2022-11-20] MEDS: FUROSEMIDE 10 MG/ML 4 ML VIAL IV SCH (16:09)
--- NOTE | 2022-11-20 18:15 | P.PN ---
Subjective Progress Note Date: 11/20/22 Hospital course: The patient is a very pleasant 67-year-old male with a past medical history including CAD status post stenting, chronic diastolic CHF, hyperlipidemia, and hypertension. He presented to the emergency department with a chief complaint of chest pain. Patient reported pain began approximately 4 days ago and initially described as a midsternal chest discomfort that waxed and waned and progressively worsened and eventually was associated with shortness of breath, cough, and wheezing that he came to the emergency department for evaluation. Upon arrival in the emergency department, patient underwent full evaluation. Patient was found to be hypertensive with blood pressure 170/93 and heart rate of 91. EKG completed revealing normal sinus rhythm at 86 bpm with no significant T-wave or ST abnormalities showing no signs of acute ischemia upon personal review. Chest x-ray also reviewed and unremarkable showing no signs of acute cardiopulmonary process. Labs completed and reviewed. CBC and CMP showing no significant abnormalities. Troponin 0.016. Covid PCR, influenza A, influenza B, and RSV were negative. Patient was admitted under our services with consultation to cardiology. Troponins trended overnight resulting is 0.016, 0.020, and 0.015. Physical examination: patient seen and fully evaluated at bedside. Patient with significant wheezing and diffuse scattered rhonchithroughout bilateral lungs. Patient currently requiring supplemental oxygen 2 L to maintain SpO2 greater than 90%. Morning labs reviewed and stable.patient reports chest pain/tightness has resolved but continues to have significant wheezing and shortness of breath. Patient does report slight chest discomfort with deep breath. Patient denies having any other complaints or needs at this time. General: non toxic, no distress, appears older than stated age, obese Derm: no unusual rashes/lesions, warm Head: atraumatic, normocephalic, symmetric Eyes: EOMI, no lid lag, anicteric sclera, pupils equal round reactive to light ENT: Nose and ears atraumatic Neck: No cervical lymphadenopathy, trachea midline, supple Mouth: no lip lesion, mucus membranes moist Cardiovascular: S1S2 reg, no murmur, positive dorsalis pedis pulse bilateral, no edema Lungs: Diffuse expiratory wheezing with some rhonchi noted, no rales, no accessory muscle use Abdominal: soft, nontender to palpation, no guarding Ext: muscle strength 5 out of 5 in all 4 extremities grossly, no gross muscle a trophy, no contractures, Neuro: CN II-XI grossly intact, no gross focal neuro deficits Psych: Alert, oriented, appropriate affect Assessment and plan of care: Chest pain, acute coronary event ruled out Acute on chronic diastolic heart failure exacerbation Hypertension Hyperlipidemia -Cardiology consult -Telemetry monitoring -Troponins negative -ProBNP 1200 -Daily weights -Close monitoring of I's and O's -Cardiac diet -Lasix -Aspirin, atorvastatin, hydralazine, and metoprolol -Continued close monitoring of electrolytes while diuresing. CODE STATUS: Full Code DVT prophylaxis: Heparin Discussed with: Patient Anticipated discharge date: 1-[address]: Home A total of 34 minutes was spent on the care of this complex patient more than 50% of the time was spent in counseling and care coordination. Objective - Vital Signs Vital signs: Vital Signs Temp 97.4 F L 11/20/22 07:00 Pulse 78 11/20/22 09:08 Resp 22 11/20/22 08:21 BP 110/72 11/20/22 07:00 Pulse Ox 93 L 11/20/22 08:56 FiO2 Intake & Output 11/19/22 11/20/22 11/20/22 18:59 06:59 18:59 Weight 108.862 kg 108.862 kg Other: Voiding Method Toilet # Voids 3 - Labs CBC & Chem 7: 11/20/22 05:06 11/20/22 05:06 Labs: Abnormal Lab Results - Last 24 Hours (Table) 11/19/22 11/19/22 11/20/22 Range/Units 18:22 18:22 05:06 RBC 4.25 L 3.96 L (4.30-5.90) m/uL Hgb 12.3 L (13.0-17.5) gm/dL Hct 38.5 L 36.1 L (39.0-53.0) % Lymphocytes # 0.6 L 0.4 L (1.0-4.8) k/uL Glucose (74-99) mg/dL Calcium 8.0 L (8.4-10.2) mg/dL 11/20/22 Range/Units 05:06 RBC (4.30-5.90) m/uL Hgb (13.0-17.5) gm/dL Hct (39.0-53.0) % Lymphocytes # (1.0-4.8) k/uL Glucose 172 H (74-99) mg/dL Calcium 8.1 L (8.4-10.2) mg/dL
[2022-11-20] MEDS: ATORVASTATIN 80 MG TAB PO SCH (21:46)
[2022-11-20] MEDS: PREGABALIN 100 MG CAP PO SCH (21:47)
[2022-11-20] MEDS: QUEtiapine 100 MG TAB PO SCH (21:47)
[2022-11-20] MEDS: SERTRALINE 100 MG TAB PO SCH (21:48)
[2022-11-20] MEDS: PRAMIPEXOLE 0.5 MG TAB PO SCH (21:48)
[2022-11-21] MEDS: IPRATROPIUM-ALBUTEROL 3 ML NEB INHALATION SCH ×5 (03:05→21:29)
[2022-11-21] MEDS: FUROSEMIDE 10 MG/ML 4 ML VIAL IV SCH ×2 (07:56→21:31)
[2022-11-21] MEDS: PRAMIPEXOLE 0.5 MG TAB PO SCH (07:56)
[2022-11-21] MEDS: ASPIRIN 81 MG PO SCH (07:57)
[2022-11-21] MEDS: PRIMIDONE 50 MG TAB PO SCH ×2 (07:57→22:14)
[2022-11-21] MEDS: hydrALAZINE HCL 25 MG TAB PO SCH (07:57)
[2022-11-21] MEDS: HEPARIN SODIUM,PORCINE/PF 5,000 UNIT/0.5 ML SYRINGE SQ SCH ×2 (07:57→15:31)
[2022-11-21] MEDS: MEMANTINE 10 MG TAB PO SCH ×2 (07:57→22:14)
[2022-11-21] MEDS: METOPROLOL SUCCINATE (ER) 25 MG TAB.ER.24H PO SCH (07:57)
[2022-11-21] MEDS: methylPREDNISolone SOD SUCCI 125 MG/2 ML VIAL IV SCH ×2 (08:23→15:31)
--- NOTE | 2022-11-21 09:34 | P.PN ---
Subjective Progress Note Date: 11/21/22 HISTORY OF PRESENT ILLNESS: The patient is a pleasant 67-year-old gentleman with a past medical history significant for CAD with prior stenting of the LCx and LAD and RCA as well as heart failure with preserved ejection fraction as well as hypertension and dyslipidemia presented complaining of chest discomfort and shortness of breath. The symptoms started mainly was shortness of breath over the last week or so associated with cough not productive of any sputum. No fever and no chills. No lower extremities edema noted. Subsequently because he continues to cough extensively he developed chest discomfort. The discomfort as a sharp kind of discomfort mainly with cough but sometimes without cough. No dizziness or lightheadedness and no feeling of heart racing or fluttering and no presyncope or syncope. He gained about 5 pounds within a week. Because of the shortness of breath and chest discomfort. To continue the emergency department if he underwent a workup including a chest x-ray did not show any acute abnormalities. EKG showed sinus rhythm was no significant changes. The troponin came in to be unremarkable. No NT proBNP was checked but we are in process of getting that checked. His oxygen saturation was borderline on room air but better on oxygen through nasal cannula. On examination he definitely have bilateral expiratory wheezing as well as bilateral rhonchi and he seems to be in heart failure. 11/21/2022 Patient examined this morning at the bedside. Patient denies chest pain or pressure. He reports shortness of breath and has audible wheezing during examination. He remains on IV Lasix. PHYSICAL EXAM: VITAL SIGNS: Reviewed. GENERAL: Well-developed in no acute distress. NECK: Supple. No JVD or thyromegaly LUNGS: Respirations even and unlabored. Lungs with significant wheezing throughout HEART: Regular rate and rhythm. S1 and S2 heard. EXTREMITIES: Normal range of motion. No clubbing or cyanosis. Peripheral pulses intact. No lower extremity edema ASSESSMENT: Acute exacerbation of COPD Acute on chronic heart failure with preserved ejection fraction Coronary artery disease with previous stenting Hyperlipidemia PLAN: Await results of 2D echo Continue IV Lasix Accurate I&O, daily weights, and monitoring of kidney function Begin IV Solu-Medrol 60 mg every 8 hours Further recommendations pending patient course Nurse practitioner note has been reviewed by physician. Signing provider agrees with the documented findings, assessment, and plan of care. Objective - Vital Signs Vital signs: Vital Signs Temp 98.4 F 01/02/23 07:15 Pulse 80 11/21/22 08:26 Resp 26 H 11/21/22 07:15 BP 119/75 11/21/22 07:15 Pulse Ox 95 11/21/22 07:15 FiO2 Intake & Output 11/20/22 11/21/22 11/21/22 18:59 06:59 18:59 Intake Total 118 118 Output Total 1300 650 Balance -1182 -650 118 Intake: Oral 118 118 Output: Urine 1300 650 Other: Voiding Method Toilet Toilet Toilet Urinal Urinal # Voids 1 2 - Labs CBC & Chem 7: 11/20/22 05:06 11/20/22 05:06
[2022-11-21] MEDS: guaiFENesin 600 MG TABLET.ER PO SCH ×3 (11:03→22:15)
[2022-11-21] MEDS: BUDESONIDE 1 MG/2 ML NEBU INHALATION SCH ×2 (12:42→21:29)
--- NOTE | 2022-11-21 14:41 | CA ---
Transthoracic Echo Report Name: Ye Michael Age: 67 Gender: M : 1955 Exam Date: 11/21/2022 10:23 Exam Location: [facility] Ht (in): 74 Wt (lb): 240 Ordering Physician: Mike Virk Attending/Referring Phys: Project Surveyor Honey Roberson RDCS Procedure CPT: Indications: Chest Pain Cardiac Hx: Technical Quality: Fair Contrast 1: Total Dose (mL): Contrast 2: Total Dose (mL): MEASUREMENTS (Male / Female) Normal Values 2D ECHO LV Diastolic Diameter PLAX 4.4 cm 4.2 - 5.9 / 3.9 - 5.3 cm LV Systolic Diameter PLAX 2.4 cm IVS Diastolic Thickness 1.3 cm 0.6 - 1.0 / 0.6 - 0.9 cm LVPW Diastolic Thickness 1.5 cm 0.6 - 1.0 / 0.6 - 0.9 cm LV Relative Wall Thickness 0.6 LA Volume 59.5 cm??? 18 - 58 / 22 - 52 cm??? M-MODE Aortic Root Diameter MM 3.7 cm LA Systolic Diameter MM 4.6 cm LA Ao Ratio MM 1.3 AV Cusp Separation MM 2.1 cm DOPPLER AV Peak Velocity 171.4 cm/s AV Peak Gradient 11.8 mmHg LVOT Peak Velocity 135.3 cm/s LVOT Peak Gradient 7.3 mmHg MV Area PHT 3.0 cm??? Mitral E Point Velocity 60.0 cm/s Mitral A Point Velocity 90.7 cm/s Mitral E to A Ratio 0.7 MV Deceleration Time 250.8 ms TR Peak Velocity 207.3 cm/s TR Peak Gradient 17.2 mmHg Right Ventricular Systolic Press 22.2 mmHg FINDINGS Left Ventricle Mildly increased septal wall thickness. Normal left ventricular systolic function with no obvious regional wall motion abnormalities. Left ventricular ejection fraction is estimated at 55%. Right Ventricle Mild right ventricular dilatation. Right ventricular systolic pressure within normal limits. Right Atrium Normal right atrial size. Left Atrium Mildly increased left atrial volume. Mitral Valve Structurally normal mitral valve. No mitral stenosis. Mild mitral regurgitation. Aortic Valve No aortic valve stenosis or regurgitation. Tricuspid Valve Mild tricuspid regurgitation. Pulmonic Valve Trace pulmonic regurgitation. Pericardium No pericardial effusion. Aorta Normal size aortic root and proximal ascending aorta. CONCLUSIONS Normal left ventricular dimension and systolic function Previewed by: Dr. Deshawn Hernandez MD (Electronically Signed) Final Date: 21 November 2022 14:40
[2022-11-21] MEDS: SERTRALINE 100 MG TAB PO SCH (22:14)
[2022-11-21] MEDS: ATORVASTATIN 80 MG TAB PO SCH (22:14)
[2022-11-21] MEDS: QUEtiapine 100 MG TAB PO SCH (22:14)
[2022-11-21] MEDS: PREGABALIN 100 MG CAP PO SCH (22:15)
--- NOTE | 2022-11-21 22:22 | P.PN ---
Progress Note - Text Progress Note Date: 11/21/22 Hospital course: The patient is a very pleasant 67-year-old male with a past medical history including CAD status post stenting, chronic diastolic CHF, hyperlipidemia, and hypertension. He presented to the emergency department with a chief complaint of chest pain. Patient reported pain began approximately 4 days ago and initially described as a midsternal chest discomfort that waxed and waned and progressively worsened and eventually was associated with shortness of breath, cough, and wheezing that he came to the emergency department for evaluation. Upon arrival in the emergency department, patient underwent full evaluation. Patient was found to be hypertensive with blood pressure 170/93 and heart rate of 91. EKG completed revealing normal sinus rhythm at 86 bpm with no significant T-wave or ST abnormalities showing no signs of acute ischemia upon personal review. Chest x-ray also reviewed and unremarkable showing no signs of acute cardiopulmonary process. Labs completed and reviewed. CBC and CMP showing no significant abnormalities. Troponin 0.016. Covid PCR, influenza A, influenza B, and RSV were negative. Patient was admitted under our services with consultation to cardiology. Troponins trended overnight resulting is 0.016, 0.020, and 0.015. 11/21/2022: I assumed care of the patient today. [67-year-old patient of Dr. Gutierrez. Chronic stable medical conditions include cognitive impairment, GERD, hyperlipidemia, hypertension, early Parkinson's versus essential tremor, reported dementia, obstructive sleep apnea does not use CPAP, irritable bowel syndrome, BPH hiatal hernia. Has known coronary artery disease with stent.] Significantly short of breath. Wheezing. Appetite is fair. Had a BM. Starting the patient on IV Solu-Medrol, IV Pulmicort, have the patient sit up in a chair. Past medical history to include: Coronary artery disease with stent, cognitive impairment, GERD, hyperlipidemia, hypertension, Parkinson disease, BPH, obstructive sleep apnea does not use CPAP, hiatal hernia Elizabeth fundoplication depression Social history: lives with no smoking. Stopped drinking alcohol in 2004. Prior to that used to drink every day Active Medications Acetaminophen (Acetaminophen Tab 325 Mg Tab) 650 mg PO Q6HR PRN PRN Reason: Mild Pain or Fever > 100.5 Albuterol/Ipratropium (Ipratropium-Albuterol 3 Ml Neb) 3 ml INHALATION RT-Q2H PRN PRN Reason: Shortness Of Breath Or Wheezing Last Admin: 11/20/22 08:52 Dose: 3 ml Albuterol/Ipratropium (Ipratropium-Albuterol 3 Ml Neb) 3 ml INHALATION RT-Q4H [facility] Last Admin: 11/21/22 21:29 Dose: 3 ml Aspirin (Aspirin 81 Mg) 81 mg PO DAILY [facility] Last Admin: 11/21/22 07:57 Dose: 81 mg Atorvastatin Calcium (Atorvastatin 80 Mg Tab) 80 mg PO HS [facility] Last Admin: 11/20/22 21:46 Dose: 80 mg Budesonide (Budesonide 1 Mg/2 Ml Nebu) 1 mg INHALATION RT-BID [facility] Last Admin: 11/21/22 21:29 Dose: 1 mg Furosemide (Furosemide 10 Mg/Ml 4 Ml Vial) 40 mg IV Q12HR [facility] Last Admin: 11/21/22 21:31 Dose: 40 mg Guaifenesin (Guaifenesin 600 Mg Tablet.Er) 600 mg PO TID [facility] Last Admin: 11/21/22 15:31 Dose: 600 mg Heparin Sodium (Porcine) (Heparin Sodium,Porcine/Pf 5,000 Unit/0.5 Ml Syringe) 5,000 unit SQ Q8HR [facility] Last Admin: 11/21/22 15:31 Dose: 5,000 unit Hydralazine HCl (Hydralazine Hcl 25 Mg Tab) 25 mg PO DAILY [facility] Last Admin: 11/21/22 07:57 Dose: 25 mg Memantine (Memantine 10 Mg Tab) 10 mg PO BID [facility] Last Admin: 11/21/22 07:57 Dose: 10 mg Methylprednisolone Sodium Succinate (Methylprednisolone Sod Succi 125 Mg/2 Ml Vial) 60 mg IV Q8HR [facility] Last Admin: 11/21/22 15:31 Dose: 60 mg Metoprolol Succinate (Metoprolol Succinate (Er) 25 Mg Tab.Er.24h) 25 mg PO DAILY [facility] Last Admin: 11/21/22 07:57 Dose: 25 mg Naloxone HCl (Naloxone 0.4 Mg/Ml 1 Ml Vial) 0.2 mg IV Q2M PRN PRN Reason: Opioid Reversal Pramipexole Dihydrochloride (Pramipexole 0.5 Mg Tab) 1.5 mg PO [facility] Last Admin: 11/21/22 07:56 Dose: 1.5 mg Pregabalin (Pregabalin 100 Mg Cap) 200 mg PO [facility] Last Admin: 11/20/22 21:47 Dose: 200 mg Primidone (Primidone 50 Mg Tab) 150 mg PO BID [facility] Last Admin: 11/21/22 07:57 Dose: 150 mg Quetiapine Fumarate (Quetiapine 100 Mg Tab) 100 mg PO [facility] Last Admin: 11/20/22 21:47 Dose: 100 mg Sertraline HCl (Sertraline 100 Mg Tab) 200 mg PO [facility] Last Admin: 11/20/22 21:48 Dose: 200 mg Tizanidine HCl (Tizanidine 4 Mg Tab) 2 mg PO BID PRN PRN Reason: Muscle Spasm Last Admin: 11/20/22 22:57 Dose: 2 mg INVESTIGATIONS, reviewed in the clinical context: 2-D echo cardiac: EF 55% White count 6 hemoglobin 12.3 platelets 181 potassium 4.2 creatinine 0.87 Troponin I: 0.016, 0.020, 0.015 ProBNP 1200 Chest x-ray film personally reviewed by me-hyperinflation Assessment and plan: -Acute congestive heart exacerbation from diastolic dysfunction EF 55%: Slow to respond IV Lasix -Acute bronchospasm: severe: IV Solu-Medrol. 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 Check BNP/chest x-ray/BMP-in the morning. Other medications to continue. IV Lasix..
[2022-11-22] MEDS: IPRATROPIUM-ALBUTEROL 3 ML NEB INHALATION SCH ×6 (00:17→20:21)
[2022-11-22] MEDS: methylPREDNISolone SOD SUCCI 125 MG/2 ML VIAL IV SCH ×5 (00:18→23:50)
[2022-11-22] MEDS: HEPARIN SODIUM,PORCINE/PF 5,000 UNIT/0.5 ML SYRINGE SQ SCH ×4 (00:18→23:50)
--- NOTE | 2022-11-22 08:20 | XR ---
EXAMINATION TYPE: XR chest 2V DATE OF EXAM: 11/22/2022 COMPARISON: Chest x-ray 3 days ago HISTORY: CHF. TECHNIQUE: Frontal and lateral views of the chest are obtained. FINDINGS: There is no suspicious new focal air space opacity, pleural effusion, or pneumothorax seen . The cardiac silhouette size is stable and upper limits of normal with atherosclerotic change aorti c knob redemonstrated. Overlying EKG leads are redemonstrated . The osseous structures are intact. IMPRESSION: No acute process. No significant change from most recent x-ray.
[2022-11-22 08:46] LABS: African American GFR (CKD) 90.5 (60.0-200.0); Anion Gap 12.2 mmol/L (10.00-18.00); BUN/Creat Ratio 23.3 Ratio (12.00-20.00); Blood Urea Nitrogen 23.3 mg/dL (9.0-27.0); Calcium 8.6 mg/dL (8.7-10.3); Carbon Dioxide 26.8 mmol/L (20.0-27.5); Non-African American GFR(CKD) 78.1 (60.0-200.0); Potassium 3.7 mmol/L (3.5-5.5)
[2022-11-22] MEDS: BUDESONIDE 1 MG/2 ML NEBU INHALATION SCH ×2 (08:48→20:21)
--- NOTE | 2022-11-22 09:01 | P.CNPUL ---
History of Present Illness Consult date: 11/22/22 Requesting physician: Pierce Chakraborty Reason for consult: dyspnea, cough, hypoxemia, abnormal CXR/CT Chief complaint: Shortness of breath, chest congestion. History of present illness: Pulmonary consult dated 11/22/2021. 67-year-old male who presents to the emergency department on November 19, c omplaining of upper respiratory tract infection, chest congestion and pain, and difficulty in breathing. We were consulted just today. The patient does see my partner in the office, but only received the consultation today. The patient states that since she's been here, he's had no improvement in his respiratory issues. He's been feeling poorly, 2 days prior to his admission in the emergency department. He apparently does see his primary care physician, prior to coming to the ER, and apparently had a chest x-ray that was negative, an influenza swab that was negative. Because of worsening complaints, he decided to be seen. Currently, the patient is on 4 L of oxygen. He has been using BiPAP, at nighttime, at 12/6 and 35%. The patient may benefit from bronchoscopy. White count 6, hemoglobin 12.3, hematocrit 36.1, and platelet count normal. Electrolytes are completely normal. N-terminal proBNP is 1010. The patient's troponin was normal. The patient's had chest x-rays on the day of admission, and also on the third, both of which showed no acute disease. Review of Systems REVIEW OF SYSTEMS: CONSTITUTIONAL: [Negative.] NEUROLOGIC: [ Negative.] HEENT: [ Negative.] CARDIAC: Chest pain. PULMONARY: Shortness of breath, cough, chest congestion, wheezing, chest tightness. GI: [Negative.] : [Negative.] RHEUMATOLOGIC: [ Negative.] IMMUNOLOGIC: [ Negative.] ENDOCRINE: [Negative. ] DERMATOLOGIC: [Negative.] Past Medical History Past Medical History: Coronary Artery Disease (CAD), Chest Pain / Angina, Heart Failure, Dementia, GERD/Reflux, Hyperlipidemia, Hypertension, Myocardial Infarction (AK), Neurologic Disorder, Pneumonia, Prostate Disorder, Renal Disease, Skin Disorder, Sleep Apnea/CPAP/BIPAP Additional Past Medical History / Comment(s): early parkinson's with essential tremors, "lewy body dementia" R nephrolithiasis with surgery, EDITH with no CPAP, Irritable Bowel Syndrome diarrhea off and on, pneumonia/bronchitis, BPH, blood in stool-EGD/colonoscopy were normal, past hiatal hernia(sx), past falls., kidney failure, Last Myocardial Infarction Date:: 06/09/13 History of Any Multi-Drug Resistant Organisms: None Reported Past Surgical History: Back Surgery, Heart Catheterization, Heart Catheterization With Stent, Hernia Repair Additional Past Surgical History / Comment(s): 05/2013 stent to LAD and then a cardiac cath which showed stent patent, Recent R kidney stone removal, 03/19/15 Laparoscopic Elizabeth fundlaplication. SKIN GRAFTS CHEST & BACK FROM [place] AT 13 YRS OLD., COLONOSCOPY. EGD, [facility] surgery as toddler. Past Anesthesia/Blood Transfusion Reactions: No Reported Reaction Additional Past Anesthesia/Blood Transfusion Reaction / Comment(s): Pt received blood in 1967 without reaction. Date of Last Stent Placement:: 12/2017 Past Psychological History: Bipolar, Depression Smoking Status: Never smoker Past Alcohol Use History: None Reported Past Drug Use History: None Reported - Past Family History Mother Family Medical History: Liver Disease Additional Family Medical History / Comment(s): Mother was an alcoholic. She of cirrhosis of the liver at age 60yrs. Father Family Medical History: Cancer, Coronary Artery Disease (CAD), Myocardial Infa rction (AK) Additional Family Medical History / Comment(s): SKIN CA. Father of a AK at age 65 yrs. Brother(s) Family Medical History: Cancer Additional Family Medical History / Comment(s): LEUKEMIA, LYMPH NODE CA AND MULTIPLE MYELOMA. Medications and Allergies Home Medications Medication Instructions Recorded Confirmed Type Primidone [Mysoline] 150 mg PO BID 12/20/17 11/19/22 History Atorvastatin [Lipitor] 80 mg PO HS #30 tab 08/06/19 11/19/22 Rx Memantine [Namenda] 10 mg PO BID 02/17/20 11/19/22 History Pramipexole Di-HCl [Mirapex] 1.5 mg PO HS 02/17/20 11/19/22 History Nitroglycerin Sl Tabs [Nitrostat] 0.4 mg SUBLINGUAL Q5M PRN #30 tab 02/19/20 11/19/22 Rx Furosemide [Lasix] 40 mg PO DAILY 03/10/21 11/19/22 History Pregabalin [Lyrica] 200 mg PO HS 03/10/21 11/19/22 History QUEtiapine [SEROquel] 100 mg PO HS 03/10/21 11/19/22 History hydrALAZINE HCL [Apresoline] 25 mg PO DAILY 03/10/21 11/19/22 History Sertraline [Zoloft] 200 mg PO HS 08/18/21 11/19/22 History tiZANidine [Zanaflex] 2 mg PO BID PRN 08/18/21 11/19/22 History Ibuprofen [Motrin] 800 mg PO TID PRN 11/19/22 11/19/22 History Metoprolol Succinate [Metoprolol 25 mg PO DAILY 11/19/22 11/19/22 History Succinate ER] predniSONE [Deltasone] 20 mg PO DIRECTED 11/19/22 11/19/22 History Allergies Allergy/AdvReac Type Severity Reaction Status Date / Time No Known Allergies Allergy Verified 11/19/22 19:20 Physical Exam Osteopathic Statement: *. No significant issues noted on an osteopathic structural exam other than those noted in the History and Physical/Consult. Vitals: Vital Signs Temp Pulse Pulse Resp BP Pulse Ox FiO2 11/22/22 08:46 88 11/22/22 07:00 98.5 F 92 24 156/85 93 L 11/22/22 04:52 35 11/22/22 04:40 107 H 11/22/22 02:50 98.6 F 85 18 107/73 93 L 11/22/22 00:30 84 11/22/22 00:22 35 11/22/22 00:20 82 11/21/22 21:41 82 11/21/22 21:31 80 11/21/22 19:26 99.1 F 83 18 132/80 96 11/21/22 17:50 99 11/21/22 17:15 94 L 35 11/21/22 16:47 88 11/21/22 16:35 88 11/21/22 15:00 98.8 F 83 16 122/71 94 L 11/21/22 12:53 80 11/21/22 12:42 84 Intake and Output 11/21/22 11/22/22 11/22/22 22:59 06:59 14:59 Intake Total 240 Output Total 750 400 Balance -510 -400 Intake: Oral 240 Output: Urine 750 400 Other: Voiding Method Toilet Urinal No acute distress, oriented 3. Mild conversational dyspnea. Currently on 4 L of oxygen. No use of accessory muscles. HEENT examination is grossly unremarkable. Neck supple. Full range of motion. No adenopathy thyromegaly or neck vein distention. Cardiovascular examination reveals regular rhythm rate. S1-S2 normal. No S3 or S4. No discernible murmur noted. Heart rate 88 bpm. Heart sounds are distant. Lungs reveal scattered bilateral expiratory rhonchi. Breath sounds are equal bilaterally. The patient wheezes and coughs on forced maneuver. No crackles. Saturations 91% on 4 L. Abdomen soft bowel sounds are heard. No masses or tenderness. Extremities are intact. No cyanosis clubbing or edema. Skin is without rash or lesion. Neurologic examination is brief but nonfocal. Results - Laboratory Findings CBC and BMP: 11/20/22 05:06 11/22/22 05:35 Abnormal lab findings: Abnormal Labs 11/19/22 11/19/22 11/20/22 18:22 18:22 05:06 RBC 4.25 L 3.96 L Hgb 12.3 L Hct 38.5 L 36.1 L Lymphocytes # 0.6 L 0.4 L BUN/Creatinine Ratio Glucose Calcium 8.0 L 11/20/22 11/22/22 05:06 05:35 RBC Hgb Hct Lymphocytes # BUN/Creatinine Ratio 23.30 H Glucose 172 H 178 H Calcium 8.1 L 8.6 L - Diagnostic Findings Chest x-ray: image reviewed Assessment and Plan Assessment: Probable viral upper respiratory tract infection, with significant bronchial inflammation and acute bronchospasm. Patient tested negative for influenza, RSV, and coronavirus. History of CAD, with previous stent placement. History of CHF. History of gastroesophageal reflux disease. History of hyperlipidemia. History of hypertension. History of myocardial infarction. History of sleep apnea. History of possible Lewy body dementia. Multiple other medical problems and comorbidities. Plan: Plan dated 11/22/2021. The patient's medications are adjusted a bit. We'll make sure the patient's on budesonide and formoterol. In addition, the patient is on albuterol sulfate and ipratropium bromide. The patient's Solu-Medrol was increased to 60 mg every 6 hours. We will ask for a pro-calcitonin level. The patient may benefit from bronchoscopy, and airway examination with BAL. Continue to follow the patient and make recommendations along the way. Time with Patient: Greater than 30
[2022-11-22] MEDS: METOPROLOL SUCCINATE (ER) 25 MG TAB.ER.24H PO SCH (09:38)
[2022-11-22] MEDS: ASPIRIN 81 MG PO SCH (09:38)
[2022-11-22] MEDS: FUROSEMIDE 40 MG TAB PO SCH (09:38)
[2022-11-22] MEDS: guaiFENesin 600 MG TABLET.ER PO SCH ×3 (09:38→21:59)
[2022-11-22] MEDS: PRIMIDONE 50 MG TAB PO SCH ×2 (09:39→21:59)
[2022-11-22] MEDS: MEMANTINE 10 MG TAB PO SCH ×2 (09:39→21:59)
--- NOTE | 2022-11-22 10:05 | P.PN ---
Subjective Progress Note Date: 11/22/22 HISTORY OF PRESENT ILLNESS: The patient is a pleasant 67-year-old gentleman with a past medical history significant for CAD with prior stenting of the LCx and LAD and RCA as well as heart failure with preserved ejection fraction as well as hypertension and dyslipidemia presented complaining of chest discomfort and shortness of breath. The symptoms started mainly was shortness of breath over the last week or so associated with cough not productive of any sputum. No fever and no chills. No lower extremities edema noted. Subsequently because he continues to cough extensively he developed chest discomfort. The discomfort as a sharp kind of discomfort mainly with cough but sometimes without cough. No dizziness or lightheadedness and no feeling of heart racing or fluttering and no presyncope or syncope. He gained about 5 pounds within a week. Because of the shortness of breath and chest discomfort. To continue the emergency department if he underwent a workup including a chest x-ray did not show any acute abnormalities. EKG showed sinus rhythm was no significant changes. The troponin came in to be unremarkable. No NT proBNP was checked but we are in process of getting that checked. His oxygen saturation was borderline on room air but better on oxygen through nasal cannula. On examination he definitely have bilateral expiratory wheezing as well as bilateral rhonchi and he seems to be in heart failure. 11/21/2022 Patient examined this morning at the bedside. Patient denies chest pain or pressure. He reports shortness of breath and has audible wheezing during examination. He remains on IV Lasix. 11/22/2022 Patient examined this morning at the bedside. He reports improvement in his breathing since starting steroids. However, he continues to wheeze this morning. He denies chest pain or pressure. Vital signs are stable. Echocardiogram completed revealing ejection fraction 55%, mild mitral regurgitation, mild tricuspid regurgitation. PHYSICAL EXAM: VITAL SIGNS: Reviewed. GENERAL: Well-developed in no acute distress. NECK: Supple. No JVD or thyromegaly LUNGS: Respirations even and unlabored. Lungs with expiratory wheezing throughout HEART: Regular rate and rhythm. S1 and S2 heard. EXTREMITIES: Normal range of motion. No clubbing or cyanosis. Peripheral pulses intact. No lower extremity edema ASSESSMENT: Acute exacerbation of COPD Acute on chronic heart failure with preserved ejection fraction Coronary artery disease with previous stenting Hyperlipidemia PLAN: Continue current cardiac medications Discontinue IV Lasix. Resume home dose of oral Lasix. Patient is currently stable from a cardiac standpoint. We will sign off. Please reconsult if needed. Nurse practitioner note has been reviewed by physician. Signing provider agrees with the documented findings, assessment, and plan of care. Objective - Vital Signs Vital signs: Vital Signs Temp 98.5 F 11/22/22 07:00 Pulse 91 11/22/22 09:08 Resp 24 11/22/22 07:00 BP 156/85 11/22/22 07:00 Pulse Ox 91 L 11/22/22 08:52 FiO2 4 11/22/22 08:52 Intake & Output 11/21/22 11/22/22 11/22/22 18:59 06:59 18:59 Intake Total 598 Output Total 980 850 Balance -382 -850 Intake: Oral 598 Output: Urine 980 850 Other: Voiding Method Toilet Toilet Urinal Urinal # Bowel Movements 1 - Labs CBC & Chem 7: 11/20/22 05:06 11/22/22 05:35 Labs: Abnormal Lab Results - Last 24 Hours (Table) 11/22/22 Range/Units 05:35 BUN/Creatinine Ratio 23.30 H (12.00-20.00) Ratio Glucose 178 H (70-110) mg/dL Calcium 8.6 L (8.7-10.3) mg/dL
[2022-11-22] MEDS: ACETAMINOPHEN TAB 325 MG TAB PO PRN (12:22)
--- NOTE | 2022-11-22 18:22 | P.PN ---
Progress Note - Text Progress Note Date: 11/22/22 Hospital course: The patient is a very pleasant 67-year-old male with a past medical history including CAD status post stenting, chronic diastolic CHF, hyperlipidemia, and hypertension. He presented to the emergency department with a chief complaint of chest pain. Patient reported pain began approximately 4 days ago and initially described as a midsternal chest discomfort that waxed and waned and progressively worsened and eventually was associated with shortness of breath, cough, and wheezing that he came to the emergency department for evaluation. Upon arrival in the emergency department, patient underwent full evaluation. Patient was found to be hypertensive with blood pressure 170/93 and heart rate of 91. EKG completed revealing normal sinus rhythm at 86 bpm with no significant T-wave or ST abnormalities showing no signs of acute ischemia upon personal review. Chest x-ray also reviewed and unremarkable showing no signs of acute cardiopulmonary process. Labs completed and reviewed. CBC and CMP showing no significant abnormalities. Troponin 0.016. Covid PCR, influenza A, influenza B, and RSV were negative. Patient was admitted under our services with consultation to cardiology. Troponins trended overnight resulting is 0.016, 0.020, and 0.015. 11/21/2022: I assumed care of the patient today. [67-year-old patient of Dr. Gutierrez. Chronic stable medical conditions include cognitive impairment, GERD, hyperlipidemia, hypertension, early Parkinson's versus essential tremor, reported dementia, obstructive sleep apnea does not use CPAP, irritable bowel syndrome, BPH hiatal hernia. Has known coronary artery disease with stent.] Significantly short of breath. Wheezing. Appetite is fair. Had a BM. Starting the patient on IV Solu-Medrol, IV Pulmicort, have the patient sit up in a chair. 11/22/2022: Remains to be short of breath wheezing. Some improvement. Seen by pulmonary today. [place] Teixeira, Perforomist. IV Solu-Medrol. Eating about 50%. Past medical history to include: Coronary artery disease with stent, cognitive impairment, GERD, hyperlipidemia, hypertension, Parkinson disease, BPH, obstructive sleep apnea does not use CPAP, hiatal hernia Elizabeth fundoplication depression Social history: lives with no smoking. Stopped drinking alcohol in 2004. Prior to that used to drink every day Active Medications Acetaminophen (Acetaminophen Tab 325 Mg Tab) 650 mg PO Q6HR PRN PRN Reason: Mild Pain or Fever > 100.5 Last Admin: 11/22/22 12:22 Dose: 650 mg Albuterol/Ipratropium (Ipratropium-Albuterol 3 Ml Neb) 3 ml INHALATION RT-Q2H PRN PRN Reason: Shortness Of Breath Or Wheezing Last Admin: 11/20/22 08:52 Dose: 3 ml Albuterol/Ipratropium (Ipratropium-Albuterol 3 Ml Neb) 3 ml INHALATION RT-Q4H [facility] Last Admin: 11/22/22 16:19 Dose: 3 ml Aspirin (Aspirin 81 Mg) 81 mg PO DAILY [facility] Last Admin: 11/22/22 09:38 Dose: 81 mg Atorvastatin Calcium (Atorvastatin 80 Mg Tab) 80 mg PO HS [facility] Last Admin: 11/21/22 22:14 Dose: 80 mg Budesonide (Budesonide 1 Mg/2 Ml Nebu) 1 mg INHALATION RT-BID [facility] Last Admin: 11/22/22 08:48 Dose: 1 mg Formoterol Fumarate (Formoterol Fumarate 20 Mcg/2 Ml Nebu) 20 mcg INHALATION RT-BID [facility] Furosemide (Furosemide 40 Mg Tab) 40 mg PO DAILY [facility] Last Admin: 11/22/22 09:38 Dose: 40 mg Guaifenesin (Guaifenesin 600 Mg Tablet.Er) 600 mg PO TID [facility] Last Admin: 11/22/22 16:23 Dose: 600 mg Heparin Sodium (Porcine) (Heparin Sodium,Porcine/Pf 5,000 Unit/0.5 Ml Syringe) 5,000 unit SQ Q8HR [facility] Last Admin: 11/22/22 16:23 Dose: 5,000 unit Memantine (Memantine 10 Mg Tab) 10 mg PO BID [facility] Last Admin: 11/22/22 09:39 Dose: 10 mg Methylprednisolone Sodium Succinate (Methylprednisolone Sod Succi 125 Mg/2 Ml Vial) 60 mg IV Q6HR [facility] Last Admin: 11/22/22 17:45 Dose: 60 mg Metoprolol Succinate (Metoprolol Succinate (Er) 25 Mg Tab.Er.24h) 25 mg PO DAILY [facility] Last Admin: 11/22/22 09:38 Dose: 25 mg Naloxone HCl (Naloxone 0.4 Mg/Ml 1 Ml Vial) 0.2 mg IV Q2M PRN PRN Reason: Opioid Reversal Pramipexole Dihydrochloride (Pramipexole 0.5 Mg Tab) 1.5 mg PO [facility] Last Admin: 11/21/22 07:56 Dose: 1.5 mg Pregabalin (Pregabalin 100 Mg Cap) 200 mg PO [facility] Last Admin: 11/21/22 22:15 Dose: 200 mg Primidone (Primidone 50 Mg Tab) 150 mg PO BID [facility] Last Admin: 11/22/22 09:39 Dose: 150 mg Quetiapine Fumarate (Quetiapine 100 Mg Tab) 100 mg PO [facility] Last Admin: 11/21/22 22:14 Dose: 100 mg Sertraline HCl (Sertraline 100 Mg Tab) 200 mg PO [facility] Last Admin: 11/21/22 22:14 Dose: 200 mg Tizanidine HCl (Tizanidine 4 Mg Tab) 2 mg PO BID PRN PRN Reason: Muscle Spasm Last Admin: 11/20/22 22:57 Dose: 2 mg INVESTIGATIONS, reviewed in the clinical context: 11/22/2022: Potassium 3.7 creatinine 1.0. Pro calcitonin 0.13 proBNP 1010 2-D echo cardiac: EF 55% White count 6 hemoglobin 12.3 platelets 181 potassium 4.2 creatinine 0.87 Troponin I: 0.016, 0.020, 0.015 ProBNP 1200 Chest x-ray film personally reviewed by me-hyperinflation Assessment and plan: -Acute congestive heart exacerbation from diastolic dysfunction EF 55%: Better Changed over to oral Lasix -Acute bronchospasm: severe:: Slow to respond IV Solu-Medrol 60 mg every 6. 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 Changed over to oral Lasix. We'll add Zithromax for possible tracheal bronchitis
[2022-11-22] MEDS: AZITHROMYCIN 500 MG TAB PO SCH (19:57)
[2022-11-22] MEDS: FORMOTEROL FUMARATE 20 MCG/2 ML NEBU INHALATION SCH (20:21)
[2022-11-22] MEDS: QUEtiapine 100 MG TAB PO SCH (21:58)
[2022-11-22] MEDS: SERTRALINE 100 MG TAB PO SCH (21:58)
[2022-11-22] MEDS: PRAMIPEXOLE 0.5 MG TAB PO SCH (21:59)
[2022-11-22] MEDS: PREGABALIN 100 MG CAP PO SCH (21:59)
[2022-11-22] MEDS: ATORVASTATIN 80 MG TAB PO SCH (22:00)
[2022-11-23] MEDS: IPRATROPIUM-ALBUTEROL 3 ML NEB INHALATION SCH ×6 (01:11→20:52)
[2022-11-23] MEDS: methylPREDNISolone SOD SUCCI 125 MG/2 ML VIAL IV SCH ×2 (06:03→12:52)
[2022-11-23] MEDS: FORMOTEROL FUMARATE 20 MCG/2 ML NEBU INHALATION SCH ×2 (08:37→20:51)
[2022-11-23] MEDS: BUDESONIDE 1 MG/2 ML NEBU INHALATION SCH ×2 (08:37→20:51)
[2022-11-23] MEDS: guaiFENesin 600 MG TABLET.ER PO SCH ×3 (08:50→21:56)
[2022-11-23] MEDS: PRIMIDONE 50 MG TAB PO SCH ×2 (08:50→21:57)
[2022-11-23] MEDS: MEMANTINE 10 MG TAB PO SCH ×2 (08:51→21:56)
[2022-11-23] MEDS: HEPARIN SODIUM,PORCINE/PF 5,000 UNIT/0.5 ML SYRINGE SQ SCH ×3 (08:51→16:54)
[2022-11-23] MEDS: FUROSEMIDE 40 MG TAB PO SCH (08:51)
[2022-11-23] MEDS: ASPIRIN 81 MG PO SCH (08:51)
[2022-11-23] MEDS: AZITHROMYCIN 500 MG TAB PO SCH (08:51)
[2022-11-23] MEDS: METOPROLOL SUCCINATE (ER) 25 MG TAB.ER.24H PO SCH (08:52)
--- NOTE | 2022-11-23 14:47 | P.PN ---
Progress Note - Text Progress Note Date: 11/23/22 Hospital course: The patient is a very pleasant 67-year-old male with a past medical history including CAD status post stenting, chronic diastolic CHF, hyperlipidemia, and hypertension. He presented to the emergency department with a chief complaint of chest pain. Patient reported pain began approximately 4 days ago and initially described as a midsternal chest discomfort that waxed and waned and progressively worsened and eventually was associated with shortness of breath, cough, and wheezing that he came to the emergency department for evaluation. Upon arrival in the emergency department, patient underwent full evaluation. Patient was found to be hypertensive with blood pressure 170/93 and heart rate of 91. EKG completed revealing normal sinus rhythm at 86 bpm with no significant T-wave or ST abnormalities showing no signs of acute ischemia upon personal review. Chest x-ray also reviewed and unremarkable showing no signs of acute cardiopulmonary process. Labs completed and reviewed. CBC and CMP showing no significant abnormalities. Troponin 0.016. Covid PCR, influenza A, influenza B, and RSV were negative. Patient was admitted under our services with consultation to cardiology. Troponins trended overnight resulting is 0.016, 0.020, and 0.015. 11/21/2022: I assumed care of the patient today. [67-year-old patient of Dr. Gutierrez. Chronic stable medical conditions include cognitive impairment, GERD, hyperlipidemia, hypertension, early Parkinson's versus essential tremor, reported dementia, obstructive sleep apnea does not use CPAP, irritable bowel syndrome, BPH hiatal hernia. Has known coronary artery disease with stent.] Significantly short of breath. Wheezing. Appetite is fair. Had a BM. Starting the patient on IV Solu-Medrol, IV Pulmicort, have the patient sit up in a chair. 11/22/2022: Remains to be short of breath wheezing. Some improvement. Seen by pulmonary today. [place], Perforomist. IV Solu-Medrol. Eating about 50%. 11/23/2022: Some improvement in shortness of breath and wheezing. Eating better. Cutback and Solu-Medrol to 40 mg every 8. Other medications to continue. Have the patient sit up in a chair. Past medical history to include: Coronary artery disease with stent, cognitive impairment, GERD, hyperlipidemia, hypertension, Parkinson disease, BPH, obstructive sleep apnea does not use CPAP, hiatal hernia Elizabeth fundoplication depression Social history: lives with no smoking. Stopped drinking alcohol in 2004. Prior to that used to drink every day Active Medications Acetaminophen (Acetaminophen Tab 325 Mg Tab) 650 mg PO Q6HR PRN PRN Reason: Mild Pain or Fever > 100.5 Last Admin: 11/22/22 12:22 Dose: 650 mg Albuterol/Ipratropium (Ipratropium-Albuterol 3 Ml Neb) 3 ml INHALATION RT-Q2H PRN PRN Reason: Shortness Of Breath Or Wheezing Last Admin: 11/20/22 08:52 Dose: 3 ml Albuterol/Ipratropium (Ipratropium-Albuterol 3 Ml Neb) 3 ml INHALATION RT-Q4H [facility] Last Admin: 11/23/22 12:27 Dose: 3 ml Aspirin (Aspirin 81 Mg) 81 mg PO DAILY [facility] Last Admin: 11/23/22 08:51 Dose: 81 mg Atorvastatin Calcium (Atorvastatin 80 Mg Tab) 80 mg PO HS [facility] Last Admin: 11/22/22 22:00 Dose: 80 mg Azithromycin (Azithromycin 500 Mg Tab) 500 mg PO DAILY [facility]; Protocol Stop: 11/24/22 09:01 Last Admin: 11/23/22 08:51 Dose: 500 mg Budesonide (Budesonide 1 Mg/2 Ml Nebu) 1 mg INHALATION RT-BID [facility] Last Admin: 11/23/22 08:37 Dose: 1 mg Formoterol Fumarate (Formoterol Fumarate 20 Mcg/2 Ml Nebu) 20 mcg INHALATION RT-BID [facility] Last Admin: 11/23/22 08:37 Dose: 20 mcg Furosemide (Furosemide 40 Mg Tab) 40 mg PO DAILY [facility] Last Admin: 11/23/22 08:51 Dose: 40 mg Guaifenesin (Guaifenesin 600 Mg Tablet.Er) 600 mg PO TID [facility] Last Admin: 11/23/22 08:50 Dose: 600 mg Heparin Sodium (Porcine) (Heparin Sodium,Porcine/Pf 5,000 Unit/0.5 Ml Syringe) 5,000 unit SQ Q8HR [facility] Last Admin: 11/23/22 08:51 Dose: 5,000 unit Memantine (Memantine 10 Mg Tab) 10 mg PO BID [facility] Last Admin: 11/23/22 08:51 Dose: 10 mg Methylprednisolone Sodium Succinate (Methylprednisolone Sod Succi 125 Mg/2 Ml Vial) 40 mg IV Q8H [facility] Metoprolol Succinate (Metoprolol Succinate (Er) 25 Mg Tab.Er.24h) 25 mg PO DAILY [facility] Last Admin: 11/23/22 08:52 Dose: 25 mg Naloxone HCl (Naloxone 0.4 Mg/Ml 1 Ml Vial) 0.2 mg IV Q2M PRN PRN Reason: Opioid Reversal Pramipexole Dihydrochloride (Pramipexole 0.5 Mg Tab) 1.5 mg PO [facility] Last Admin: 11/22/22 21:59 Dose: 1.5 mg Pregabalin (Pregabalin 100 Mg Cap) 200 mg PO [facility] Last Admin: 11/22/22 21:59 Dose: 200 mg Primidone (Primidone 50 Mg Tab) 150 mg PO BID [facility] Last Admin: 11/23/22 08:50 Dose: 150 mg Quetiapine Fumarate (Quetiapine 100 Mg Tab) 100 mg PO [facility] Last Admin: 11/22/22 21:58 Dose: 100 mg Sertraline HCl (Sertraline 100 Mg Tab) 200 mg PO [facility] Last Admin: 11/22/22 21:58 Dose: 200 mg Tizanidine HCl (Tizanidine 4 Mg Tab) 2 mg PO BID PRN PRN Reason: Muscle Spasm Last Admin: 11/20/22 22:57 Dose: 2 mg INVESTIGATIONS, reviewed in the clinical context: 11/22/2022: Potassium 3.7 creatinine 1.0. Pro calcitonin 0.13 proBNP 1010 2-D echo cardiac: EF 55% White count 6 hemoglobin 12.3 platelets 181 potassium 4.2 creatinine 0.87 Troponin I: 0.016, 0.020, 0.015 ProBNP 1200 Chest x-ray film personally reviewed by me-hyperinflation Assessment and plan: -Acute congestive heart exacerbation from diastolic dysfunction EF 55%: Better Changed over to oral Lasix -Acute tracheobronchitis Zithromax -Acute bronchospasm: severe:: Slow improvement Decrease IV Solu-Medrol 40 mg every 8. 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 Zithromax for possible tracheal bronchitis
--- NOTE | 2022-11-23 14:57 | P.PN ---
Subjective Progress Note Date: 11/23/22 67-year-old male who presents to the emergency department on November 19, complaining of upper respiratory tract infection, chest congestion and pain, and difficulty in breathing. We were consulted just today. The patient does see my partner in the office, but only received the consultation today. The patient states that since she's been here, he's had no improvement in his respiratory issues. He's been feeling poorly, 2 days prior to his admission in the emergency department. He apparently does see his primary care physician, prior to coming to the ER, and apparently had a chest x-ray that was negative, an influenza swab that was negative. Because of worsening complaints, he decided to be seen. Currently, the patient is on 4 L of oxygen. He has been using BiPAP, at nighttime, at 12/6 and 35%. The patient may benefit from bronchoscopy. White count 6, hemoglobin 12.3, hematocrit 36.1, and platelet count normal. Electrolytes are completely normal. N-terminal proBNP is 1010. The patient's troponin was normal. The patient's had chest x-rays on the day of admission, and also on the third, both of which showed no acute disease. On 11/23/2022, the patient is struggling with his breathing. The patient remains bronchospastic and short of breath and he continues to have cough and congestion and chest tightness and wheezing. Resonant only limited improvement over the past 48 hours. The patient remains on IV Solu-Medrol and currently he is at a dose of 40 mg IV every 8 hours. He is on oral Zithromax 500 mg by mouth daily. Is also on DuoNeb nebulized treatments [id number] 4 times a day. Is well-known to me. Is known to have COPD. He is off the BiPAP for now. His blood work from yesterday was showing a full calcitonin level of 0.1 and a proBNP level of 1000. Electrolytes are all within normal limits. Objective - Vital Signs Vital signs: Vital Signs Temp 98.0 F 11/23/22 07:00 Pulse 67 11/23/22 12:38 Resp 22 11/23/22 07:00 BP 126/53 11/23/22 07:00 Pulse Ox 77 L 11/23/22 08:38 FiO2 35 11/23/22 01:24 Intake & Output 11/22/22 11/23/22 11/23/22 18:59 06:59 18:59 Output Total 975 Balance -975 Output: Urine 975 Other: Voiding Method Toilet Toilet Urinal Urinal # Voids 1 1 - Exam No acute distress, oriented 3. Mild conversational dyspnea. Currently on 4 L of oxygen. No use of accessory muscles. HEENT examination is grossly unremarkable. Neck supple. Full range of motion. No adenopathy thyromegaly or neck vein distention. Cardiovascular examination reveals regular rhythm rate. S1-S2 normal. No S3 or S4. No discernible murmur noted. Heart rate 88 bpm. Heart sounds are distant. Lungs reveal scattered bilateral expiratory rhonchi. Breath sounds are equal bilaterally. The patient wheezes and coughs on forced maneuver. No crackles. Abdomen soft bowel sounds are heard. No masses or tenderness. Extremities are intact. No cyanosis clubbing or edema. Skin is without rash or lesion. Neurologic examination is brief but nonfocal. - Labs CBC & Chem 7: 11/20/22 05:06 11/22/22 05:35 Assessment and Plan Plan: Acute COPD exacerbation likely secondary to a upper respiratory tract infection, with significant bronchial inflammation and acute bronchospasm. Patient tested negative for influenza, RSV, and coronavirus. History of CAD, with previous stent placement. History of CHF. History of gastroesophageal reflux disease. History of hyperlipidemia. History of hypertension. History of myocardial infarction. History of sleep apnea. History of possible Lewy body dementia. Multiple other medical problems and comorbidities. Plan: Limited recovery in this patient over the past 48 hours and the patient has developed shortness of breath and bronchospasm and wheeze Noted the vital screening including influenza, RSV and Covid 19 were negative Planning to the bronchoscopy and a bronchioloalveolar lavage in the morning to rule out any bacterial growth Continue bronchodilators and steroids We'll continue to follow. Keep oxygen at 4 L and gradually wean it down to maintain a saturation above 90%.
[2022-11-23] MEDS: methylPREDNISolone SOD SUCCI 40 MG/ML 1 ML VIAL IV SCH (21:56)
[2022-11-23] MEDS: PREGABALIN 100 MG CAP PO SCH (21:56)
[2022-11-23] MEDS: PRAMIPEXOLE 0.5 MG TAB PO SCH (21:56)
[2022-11-23] MEDS: ATORVASTATIN 80 MG TAB PO SCH (21:56)
[2022-11-23] MEDS: SERTRALINE 100 MG TAB PO SCH (21:56)
[2022-11-23] MEDS: QUEtiapine 100 MG TAB PO SCH (21:56)
[2022-11-24] MEDS: HEPARIN SODIUM,PORCINE/PF 5,000 UNIT/0.5 ML SYRINGE SQ SCH ×4 (00:12→21:07)
[2022-11-24] MEDS: IPRATROPIUM-ALBUTEROL 3 ML NEB INHALATION SCH ×6 (00:34→19:51)
[2022-11-24] MEDS: methylPREDNISolone SOD SUCCI 40 MG/ML 1 ML VIAL IV SCH ×3 (06:25→21:05)
[2022-11-24] MEDS: BUDESONIDE 1 MG/2 ML NEBU INHALATION SCH ×2 (09:02→19:51)
[2022-11-24] MEDS: FORMOTEROL FUMARATE 20 MCG/2 ML NEBU INHALATION SCH ×2 (09:02→19:51)
[2022-11-24] MEDS: ASPIRIN 81 MG PO SCH (09:05)
[2022-11-24] MEDS: PRIMIDONE 50 MG TAB PO SCH ×2 (09:05→21:07)
[2022-11-24] MEDS: MEMANTINE 10 MG TAB PO SCH ×2 (09:07→21:06)
[2022-11-24] MEDS: AZITHROMYCIN 500 MG TAB PO SCH (09:07)
[2022-11-24] MEDS: FUROSEMIDE 40 MG TAB PO SCH (09:07)
[2022-11-24] MEDS: METOPROLOL SUCCINATE (ER) 25 MG TAB.ER.24H PO SCH (09:08)
[2022-11-24] MEDS: guaiFENesin 600 MG TABLET.ER PO SCH ×3 (09:08→21:06)
[2022-11-24 11:55] VITALS: BMI 30.8
[2022-11-24] MEDS ORDERED: LIDOCAINE 2% INJ 20 MG/ML (2 ML VIAL) ONE (15:34)
[2022-11-24] MEDS ORDERED: PROPOFOL 10 MG/ML 20 ML VIAL IV ONE (15:34)
[2022-11-24] MEDS ORDERED: IV FLUID CONTINUATION 1,000 ML IV ONE ×2 (15:35)
[2022-11-24] MEDS ORDERED: LIDOCAINE 2% INJ 20 MG/ML INTRATRACH ONE (15:51)
--- NOTE | 2022-11-24 15:56 | P.PN ---
Subjective Progress Note Date: 11/24/22 67-year-old male who presents to the emergency department on November 19, complaining of upper respiratory tract infection, chest congestion and pain, and difficulty in breathing. We were consulted just today. The patient does see my partner in the office, but only received the consultation today. The patient states that since she's been here, he's had no improvement in his respiratory issues. He's been feeling poorly, 2 days prior to his admission in the emergency department. He apparently does see his primary care physician, prior to coming to the ER, and apparently had a chest x-ray that was negative, an influenza swab that was negative. Because of worsening complaints, he decided to be seen. Currently, the patient is on 4 L of oxygen. He has been using BiPAP, at nighttime, at 12/6 and 35%. The patient may benefit from bronchoscopy. White count 6, hemoglobin 12.3, hematocrit 36.1, and platelet count normal. Electrolytes are completely normal. N-terminal proBNP is 1010. The patient's troponin was normal. The patient's had chest x-rays on the day of admission, and also on the third, both of which showed no acute disease. On 11/23/2022, the patient is struggling with his breathing. The patient remains bronchospastic and short of breath and he continues to have cough and congestion and chest tightness and wheezing. Resonant only limited improvement over the past 48 hours. The patient remains on IV Solu-Medrol and currently he is at a dose of 40 mg IV every 8 hours. He is on oral Zithromax 500 mg by mouth daily. Is also on DuoNeb nebulized treatments [id number] 4 times a day. Is well-known to me. Is known to have COPD. He is off the BiPAP for now. His blood work from yesterday was showing a full calcitonin level of 0.1 and a proBNP level of 1000. Electrolytes are all within normal limits. 11/24/2022, the patient is still struggling with his breathing is limited improvement over the past several days despite being on a combination of bronchodilators and steroids and antibiotics. Based on that, we decided to proceed with a bronchoscopy and a bronchial lavage and is scheduled to be done today. Objective - Vital Signs Vital signs: Vital Signs Temp 97.5 F L 11/24/22 08:00 Pulse 67 11/24/22 12:55 Resp 18 11/24/22 08:00 BP 156/89 11/24/22 08:00 Pulse Ox 89 L 11/24/22 09:03 FiO2 35 11/23/22 01:24 Intake & Output 11/23/22 11/24/22 11/24/22 18:59 06:59 18:59 Output Total 975 Balance -975 Weight 108.862 kg Output: Urine 975 Other: Voiding Method Toilet Urinal # Voids 2 2 # Bowel Movements 2 - Exam No acute distress, oriented 3. Mild conversational dyspnea. Currently on 4 L of oxygen. No use of accessory muscles. HEENT examination is grossly unremarkable. Neck supple. Full range of motion. No adenopathy thyromegaly or neck vein distention. Cardiovascular examination reveals regular rhythm rate. S1-S2 normal. No S3 or S4. No discernible murmur noted. Heart rate 88 bpm. Heart sounds are distant. Lungs reveal scattered bilateral expiratory rhonchi. Breath sounds are equal bilaterally. The patient wheezes and coughs on forced maneuver. No crackles. Abdomen soft bowel sounds are heard. No masses or tenderness. Extremities are intact. No cyanosis clubbing or edema. Skin is without rash or lesion. Neurologic examination is brief but nonfocal. - Labs CBC & Chem 7: 11/20/22 05:06 11/22/22 05:35 Assessment and Plan Plan: Acute COPD exacerbation likely secondary to a upper respiratory tract infection, with significant bronchial inflammation and acute bronchospasm. Patient tested negative for influenza, RSV, and coronavirus. History of CAD, with previous stent placement. History of CHF. History of gastroesophageal reflux disease. History of hyperlipidemia. History of hypertension. History of myocardial infarction. History of sleep apnea. History of possible Lewy body dementia. Multiple other medical problems and comorbidities. Plan: Limited recovery in this patient over the past 48 hours and the patient has developed shortness of breath and bronchospasm and wheeze Noted the vital screening including influenza, RSV and Covid 19 were negative Planning to the bronchoscopy and a bronchioloalveolar lavage in the morning to rule out any bacterial growth Continue bronchodilators and steroids We'll continue to follow. Keep oxygen at 4 L and gradually wean it down to maintain a saturation above 90%. Overall clinical condition is unchanged. We will going to proceed with a bronchoscopy and bronchoalveolar lavage and further recommendations to follow based on the results of the lavage.
--- NOTE | 2022-11-24 16:02 | P.PCN ---
Date of Procedure: 11/24/22 Preoperative Diagnosis: Persistent COPD exacerbation, retained secretions Postoperative Diagnosis: Same Implants: Bronchoscopy, bronchioloalveolar lavage of the lingula Anesthesia: MAC Surgeon: Chioma Ludwig Lead Machinist #1: Kanwal Estrada Estimated Blood Loss (ml): 0 Pathology: other Condition: stable Disposition: floor Operative Findings: This is a flexible bronchoscopy that was done in the endoscopy suite. This procedure was done under conscious sedation. The patient was given propofol during the course of this bronchoscopy. After achieving adequate sedation, the flexible bronchoscope was introduced through the right nostril and was advanced to the upper airway. Examination of posterior pharynx, larynx, epiglottis and vocal cords was all within normal limits. The loose secretions that were suctioned out. Following that, a total of 2 mL of 1% lidocaine was applied to the vocal cords and the bronchoscope was advanced into the upper trachea. Examination of the tracheal bronchial tree was done. The airways were slightly inflamed and the bronchial mucosa was slightly erythematous. There was copious amount of rest or secretions retained within the airways that were suctioned out. The rest or secretions came on without any major difficulties. The airways otherwise were patent. No endobronchial tumors. The visualized there was included the entire trachea, bilateral mainstem bronchi, right upper lobe bronchus admitted lobe right lower lobe bronchus and the various 10 segments on the right, left upper and left lower lobe bronchus and the various 10 segments on the left. A bronchial lavage of the lingula was done. A total of 80 mL of fluid was infused and 20 mL was suctioned back without any major difficulties. Aspirate was nonbloody. Therapeutic airway suctioning was done in the bronchoscope was removed without any complications. The patient was transferred back to recovery. The bronchial lavage was sent for microbial cultures and atelectasis.
--- NOTE | 2022-11-24 16:25 | P.PN ---
Progress Note - Text Progress Note Date: 11/24/22 Hospital course: The patient is a very pleasant 67-year-old male with a past medical history including CAD status post stenting, chronic diastolic CHF, hyperlipidemia, and hypertension. He presented to the emergency department with a chief complaint of chest pain. Patient reported pain began approximately 4 days ago and initially described as a midsternal chest discomfort that waxed and waned and progressively worsened and eventually was associated with shortness of breath, cough, and wheezing that he came to the emergency department for evaluation. Upon arrival in the emergency department, patient underwent full evaluation. Patient was found to be hypertensive with blood pressure 170/93 and heart rate of 91. EKG completed revealing normal sinus rhythm at 86 bpm with no significant T-wave or ST abnormalities showing no signs of acute ischemia upon personal review. Chest x-ray also reviewed and unremarkable showing no signs of acute cardiopulmonary process. Labs completed and reviewed. CBC and CMP showing no significant abnormalities. Troponin 0.016. Covid PCR, influenza A, influenza B, and RSV were negative. Patient was admitted under our services with consultation to cardiology. Troponins trended overnight resulting is 0.016, 0.020, and 0.015. 11/21/2022: I assumed care of the patient today. [67-year-old patient of Dr. Gutierrez. Chronic stable medical conditions include cognitive impairment, GERD, hyperlipidemia, hypertension, early Parkinson's versus essential tremor, reported dementia, obstructive sleep apnea does not use CPAP, irritable bowel syndrome, BPH hiatal hernia. Has known coronary artery disease with stent.] Significantly short of breath. Wheezing. Appetite is fair. Had a BM. Starting the patient on IV Solu-Medrol, IV Pulmicort, have the patient sit up in a chair. 11/22/2022: Remains to be short of breath wheezing. Some improvement. Seen by pulmonary today. Los Teixeira, Perforomist. IV Solu-Medrol. Eating about 50%. 11/23/2022: Some improvement in shortness of breath and wheezing. Eating better. Cutback and Solu-Medrol to 40 mg every 8. Other medications to continue. Have the patient sit up in a chair. 11/24/2022: Sulfa patient this morning. Congested the chest. Later this afternoon underwent full bronchoscopy for lavage. Copious secretions were aspirated. Aspirate was nonbloody. Past medical history to include: Coronary artery disease with stent, cognitive impairment, GERD, hyperlipidemia, hypertension, Parkinson disease, BPH, obstructive sleep apnea does not use CPAP, hiatal hernia Elizabeth fundoplication depression Social history: lives with no smoking. Stopped drinking alcohol in 2004. Prior to that used to drink every day Active Medications Acetaminophen (Acetaminophen Tab 325 Mg Tab) 650 mg PO Q6HR PRN PRN Reason: Mild Pain or Fever > 100.5 Last Admin: 11/22/22 12:22 Dose: 650 mg Albuterol/Ipratropium (Ipratropium-Albuterol 3 Ml Neb) 3 ml INHALATION RT-Q2H PRN PRN Reason: Shortness Of Breath Or Wheezing Last Admin: 11/20/22 08:52 Dose: 3 ml Albuterol/Ipratropium (Ipratropium-Albuterol 3 Ml Neb) 3 ml INHALATION RT-Q4H [facility] Last Admin: 11/24/22 15:58 Dose: Not Given Aspirin (Aspirin 81 Mg) 81 mg PO DAILY [facility] Last Admin: 11/24/22 09:05 Dose: Not Given Atorvastatin Calcium (Atorvastatin 80 Mg Tab) 80 mg PO HS [facility] Last Admin: 11/23/22 21:56 Dose: 80 mg Budesonide (Budesonide 1 Mg/2 Ml Nebu) 1 mg INHALATION RT-BID [facility] Last Admin: 11/24/22 09:02 Dose: 1 mg Formoterol Fumarate (Formoterol Fumarate 20 Mcg/2 Ml Nebu) 20 mcg INHALATION RT-BID [facility] Last Admin: 11/24/22 09:02 Dose: 20 mcg Furosemide (Furosemide 40 Mg Tab) 40 mg PO DAILY [facility] Last Admin: 11/24/22 09:07 Dose: 40 mg Guaifenesin (Guaifenesin 600 Mg Tablet.Er) 600 mg PO TID [facility] Last Admin: 11/24/22 09:08 Dose: 600 mg Heparin Sodium (Porcine) (Heparin Sodium,Porcine/Pf 5,000 Unit/0.5 Ml Syringe) 5,000 unit SQ Q8HR [facility] Last Admin: 11/24/22 09:04 Dose: Not Given Memantine (Memantine 10 Mg Tab) 10 mg PO BID [facility] Last Admin: 11/24/22 09:07 Dose: 10 mg Methylprednisolone Sodium Succinate (Methylprednisolone Sod Succi 40 Mg/Ml 1 Ml Vial) 40 mg IV Q8H [facility] Last Admin: 11/24/22 15:04 Dose: 40 mg Metoprolol Succinate (Metoprolol Succinate (Er) 25 Mg Tab.Er.24h) 25 mg PO DAILY [facility] Last Admin: 11/24/22 09:08 Dose: 25 mg Naloxone HCl (Naloxone 0.4 Mg/Ml 1 Ml Vial) 0.2 mg IV Q2M PRN PRN Reason: Opioid Reversal Pramipexole Dihydrochloride (Pramipexole 0.5 Mg Tab) 1.5 mg PO [facility] Last Admin: 11/23/22 21:56 Dose: 1.5 mg Pregabalin (Pregabalin 100 Mg Cap) 200 mg PO [facility] Last Admin: 11/23/22 21:56 Dose: 200 mg Primidone (Primidone 50 Mg Tab) 150 mg PO BID [facility] Last Admin: 11/24/22 09:05 Dose: 150 mg Quetiapine Fumarate (Quetiapine 100 Mg Tab) 100 mg PO [facility] Last Admin: 11/23/22 21:56 Dose: 100 mg Sertraline HCl (Sertraline 100 Mg Tab) 200 mg PO [facility] Last Admin: 11/23/22 21:56 Dose: 200 mg Tizanidine HCl (Tizanidine 4 Mg Tab) 2 mg PO BID PRN PRN Reason: Muscle Spasm Last Admin: 11/20/22 22:57 Dose: 2 mg INVESTIGATIONS, reviewed in the clinical context: 11/22/2022: Potassium 3.7 creatinine 1.0. Pro calcitonin 0.13 proBNP 1010 2-D echo cardiac: EF 55% White count 6 hemoglobin 12.3 platelets 181 potassium 4.2 creatinine 0.87 Troponin I: 0.016, 0.020, 0.015 ProBNP 1200 Chest x-ray film personally reviewed by me-hyperinflation Assessment and plan: -Acute congestive heart exacerbation from diastolic dysfunction EF 55%: Better Changed over to oral Lasix -Acute severe tracheobronchitis Zithromax. Patient underwent bronchoscopy with lavage -Acute bronchospasm: severe:: Slow improvement Decrease IV Solu-Medrol 40 mg every 8. 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 Zithromax for possible tracheal bronchitis. Status post bronchial lavage today.
[2022-11-24] MEDS: ACETAMINOPHEN TAB 325 MG TAB PO PRN (21:05)
[2022-11-24] MEDS: QUEtiapine 100 MG TAB PO SCH (21:06)
[2022-11-24] MEDS: PRAMIPEXOLE 0.5 MG TAB PO SCH (21:06)
[2022-11-24] MEDS: SERTRALINE 100 MG TAB PO SCH (21:06)
[2022-11-24] MEDS: PREGABALIN 100 MG CAP PO SCH (21:07)
[2022-11-24] MEDS: ATORVASTATIN 80 MG TAB PO SCH (21:07)
[2022-11-24 23:24] LABS: Appearance,BF Blood Tinged
[2022-11-25] MEDS: IPRATROPIUM-ALBUTEROL 3 ML NEB INHALATION SCH ×3 (02:58→10:58)
[2022-11-25] MEDS: methylPREDNISolone SOD SUCCI 40 MG/ML 1 ML VIAL IV SCH (05:56)
[2022-11-25] MEDS: FORMOTEROL FUMARATE 20 MCG/2 ML NEBU INHALATION SCH (07:22)
[2022-11-25] MEDS: BUDESONIDE 1 MG/2 ML NEBU INHALATION SCH (07:22)
[2022-11-25 08:54] VITALS: BP 135/79; PULSE 64; RESP 19; TEMP 97.8
[2022-11-25] MEDS: HEPARIN SODIUM,PORCINE/PF 5,000 UNIT/0.5 ML SYRINGE SQ SCH (10:11)
[2022-11-25] MEDS: ASPIRIN 81 MG PO SCH (10:12)
[2022-11-25] MEDS: METOPROLOL SUCCINATE (ER) 25 MG TAB.ER.24H PO SCH (10:12)
[2022-11-25] MEDS: MEMANTINE 10 MG TAB PO SCH (10:12)
[2022-11-25] MEDS: FUROSEMIDE 40 MG TAB PO SCH (10:12)
[2022-11-25] MEDS: guaiFENesin 600 MG TABLET.ER PO SCH (10:12)
[2022-11-25] MEDS: PRIMIDONE 50 MG TAB PO SCH (10:12)
--- NOTE | 2022-11-25 16:14 | P.DS ---
Providers Date of admission: 11/20/22 11:07 Expected date of discharge: 11/25/22 Attending physician: Pierce Chakraborty Consults: 11/21/22 17:00 Consult Physician Routine Consulting Provider: Scot Summers Reason/Comments: SOB Do you want consulting provider notified?: Yes [facility] [place] [facility] Course: Hospital course: The patient is a very pleasant 67-year-old male with a past medical history including CAD status post stenting, chronic diastolic CHF, hyperlipidemia, and hypertension. He presented to the emergency department with a chief complaint of chest pain. Patient reported pain began approximately 4 days ago and initially described as a midsternal chest discomfort that waxed and waned and progressively worsened and eventually was associated with shortness of breath, cough, and wheezing that he came to the emergency department for evaluation. Upon arrival in the emergency department, patient underwent full evaluation. Patient was found to be hypertensive with blood pressure 170/93 and heart rate of 91. EKG completed revealing normal sinus rhythm at 86 bpm with no significant T-wave or ST abnormalities showing no signs of acute ischemia upon personal review. Chest x-ray also reviewed and unremarkable showing no signs of acute cardiopulmonary process. Labs completed and reviewed. CBC and CMP sh owing no significant abnormalities. Troponin 0.016. Covid PCR, influenza A, influenza B, and RSV were negative. Patient was admitted under our services with consultation to cardiology. Troponins trended overnight resulting is 0.016, 0.020, and 0.015. 11/21/2022: I assumed care of the patient today. [67-year-old patient of Dr. Gutierrez. Chronic stable medical conditions include cognitive impairment, GERD, hyperlipidemia, hypertension, early Parkinson's versus essential tremor, reported dementia, obstructive sleep apnea does not use CPAP, irritable bowel syndrome, BPH hiatal hernia. Has known coronary artery disease with stent.] Significantly short of breath. Wheezing. Appetite is fair. Had a BM. Starting the patient on IV Solu-Medrol, IV Pulmicort, have the patient sit up in a chair. 11/22/2022: Remains to be short of breath wheezing. Some improvement. Seen by pulmonary today. [place]ira, Perforomist. IV Solu-Medrol. Eating about 50%. 11/23/2022: Some improvement in shortness of breath and wheezing. Eating better. Cutback and Solu-Medrol to 40 mg every 8. Other medications to continue. Have the patient sit up in a chair. 11/24/2022: Sulfa patient this morning. Congested the chest. Later this afternoon underwent full bronchoscopy for lavage. Copious secretions were aspirated. Aspirate was nonbloody. 11/25/2022: Patient doing much better after his lavage bronchoscopy yesterday. Slight cough. Breathing better. Home oxygen being arranged. Discussed with Dr. Ludwig. Stable for discharge. Discussed with patient. Will follow with Dr. Ludwig in the office. Discussion and discharge planning more than 35 minutes. Past medical history to include: Coronary artery disease with stent, cognitive impairment, GERD, hyperlipidemia, hypertension, Parkinson disease, BPH, obstructive sleep apnea does not use CPAP, hiatal hernia Elizabeth fundoplication depression Social history: lives with no smoking. Stopped drinking alcohol in 2004. Prior to that used to drink every day On examination: VITAL SIGNS: [97.8, 64, 19, 135 and 79, 89% room air] GENERAL APPEARANCE: Sitting up in a chair, breathing better HEENT: Normal external appearance of nose and ear. Oral cavity normal EYES: Pupils equal. Conjunctiva normal. NECK: JVD not raised. Mass not palpable. RESPIRATORY: Respiratory effort increased. Lungs decreased breath sounds, mild wheezing CARDIOVASCULAR: First and second sounds normal. No edema. ABDOMEN: Soft. Liver and spleen not palpable. No tenderness. No mass palpable. PSYCHIATRY: Alert and oriented x3. Mood and affect normal. INVESTIGATIONS, reviewed in the clinical context: 11/22/2022: Potassium 3.7 creatinine 1.0. Pro calcitonin 0.13 proBNP 1010 2-D echo cardiac: EF 55% White count 6 hemoglobin 12.3 platelets 181 potassium 4.2 creatinine 0.87 Troponin I: 0.016, 0.020, 0.015 ProBNP 1200 Chest x-ray film personally reviewed by me-hyperinflation Assessment and plan: -Acute congestive heart exacerbation from diastolic dysfunction EF 55%: Better Lasix -Acute severe tracheobronchitis Zithromax. Patient underwent bronchoscopy with lavage by Dr. Ludwig -Acute bronchospasm: severe:: Better Prednisone taper. Symbicort. 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 Namenda -Irritable bowel syndrome -Bipolar depression Zoloft, Seroquel Disposition: Home Plan - Discharge Summary New Discharge Prescriptions: New guaiFENesin [Mucinex] 600 mg PO TID #60 tab Budesonide/Formoterol Fumarate [Symbicort 80-4.5 Mcg Inhaler] 1 puff INHALATION BID #1 each Albuterol Sulfate [Albuterol Sulfate Hfa] 1 puff PO Q4-6H #8.5 gm Aspirin 81 mg PO DAILY tab predniSONE 10 mg PO DAILY #30 tab Continue Primidone [Mysoline] 150 mg PO BID Atorvastatin [Lipitor] 80 mg PO HS #30 tab Memantine [Namenda] 10 mg PO BID Pramipexole Di-HCl [Mirapex] 1.5 mg PO HS Nitroglycerin Sl Tabs [Nitrostat] 0.4 mg SUBLINGUAL Q5M PRN #30 tab PRN Reason: Chest Pain Furosemide [Lasix] 40 mg PO DAILY Pregabalin [Lyrica] 200 mg PO HS QUEtiapine [SEROquel] 100 mg PO HS tiZANidine [Zanaflex] 2 mg PO BID PRN PRN Reason: Muscle Spasm Sertraline [Zoloft] 200 mg PO HS Ibuprofen [Motrin] 800 mg PO TID PRN PRN Reason: Pain Or Fever > 100.5 Metoprolol Succinate [Metoprolol Succinate ER] 25 mg PO DAILY Discontinued predniSONE [Deltasone] 20 mg PO DIRECTED hydrALAZINE HCL [Apresoline] 25 mg PO DAILY Discharge Medication List Primidone [Mysoline] 150 mg PO BID 12/20/17 [History] Atorvastatin [Lipitor] 80 mg PO HS #30 tab 08/06/19 [Rx] Memantine [Namenda] 10 mg PO BID 02/17/20 [History] Pramipexole Di-HCl [Mirapex] 1.5 mg PO HS 02/17/20 [History] Nitroglycerin Sl Tabs [Nitrostat] 0.4 mg SUBLINGUAL Q5M PRN #30 tab 02/19/20 [Rx] Furosemide [Lasix] 40 mg PO DAILY 03/10/21 [History] Pregabalin [Lyrica] 200 mg PO HS 03/10/21 [History] QUEtiapine [SEROquel] 100 mg PO HS 03/10/21 [History] Sertraline [Zoloft] 200 mg PO HS 08/18/21 [History] tiZANidine [Zanaflex] 2 mg PO BID PRN 08/18/21 [History] Ibuprofen [Motrin] 800 mg PO TID PRN 11/19/22 [History] Metoprolol Succinate [Metoprolol Succinate ER] 25 mg PO DAILY 11/19/22 [History] Albuterol Sulfate [Albuterol Sulfate Hfa] 1 puff PO Q4-6H #8.5 gm 11/25/22 [Rx] Aspirin 81 mg PO DAILY tab 11/25/22 [Rx] Budesonide/Formoterol Fumarate [Symbicort 80-4.5 Mcg Inhaler] 1 puff INHALATION BID #1 each 11/25/22 [Rx] guaiFENesin [Mucinex] 600 mg PO TID #60 tab 11/25/22 [Rx] predniSONE 10 mg PO DAILY #30 tab 11/25/22 [Rx] Follow up Appointment(s)/Referral(s): Román Gutierrez DO [Primary Care Provider] - 1-2 days Chioma Ludwig MD [STAFF PHYSICIAN] - 1 Week Discharge Disposition: HOME SELF-CARE
== END 2022-11-25 12:30 | disposition home or self-care (01) | DRG 291 ==
LOC: EC 17:13 → 6NMEDSUR 20:31 → OBSVTOIN 11-20 11:07
PROVIDERS: ADMIT Hospitalist; ATTEND Hospitalist
PROC: 5A09357 Assistance with Respiratory Ventilation, Less than 24 Consecutive Hours, Continuous Positive Airway Pressure (ICD-10-PCS; 2022-11-23)
PROC: 0B9H8ZX Drainage of Lung Lingula, Via Natural or Artificial Opening Endoscopic, Diagnostic (ICD-10-PCS; principal; 2022-11-24 07:45)
DX: I11.0 Hypertensive heart disease with heart failure (principal); I50.33 Acute on chronic diastolic (congestive) heart failure; J44.1 Chronic obstructive pulmonary disease with (acute) exacerbation; J98.11 Atelectasis; J44.0 Chronic obstructive pulmonary disease with (acute) lower respiratory infection; F31.30 Bipolar disorder, current episode depressed, mild or moderate severity, unspecified; F02.A0 Dementia in other diseases classified elsewhere, mild, without behavioral disturbance, psychotic disturbance, mood disturbance, and anxiety; I25.2 Old myocardial infarction; I25.10 Atherosclerotic heart disease of native coronary artery without angina pectoris; J20.9 Acute bronchitis, unspecified; E66.9 Obesity, unspecified; G47.33 Obstructive sleep apnea (adult) (pediatric); G31.83 Neurocognitive disorder with Lewy bodies; Z68.30 Body mass index [BMI] 30.0-30.9, adult; K21.9 Gastro-esophageal reflux disease without esophagitis; N40.0 Benign prostatic hyperplasia without lower urinary tract symptoms; R09.02 Hypoxemia; K58.9 Irritable bowel syndrome, unspecified; G20 Parkinson's disease; E78.5 Hyperlipidemia, unspecified; Z79.82 Long term (current) use of aspirin; Z79.899 Other long term (current) drug therapy; Z82.49 Family history of ischemic heart disease and other diseases of the circulatory system; Z95.5 Presence of coronary angioplasty implant and graft; Z28.311 Partially vaccinated for COVID-19; Z20.822 Contact with and (suspected) exposure to COVID-19; Z87.442 Personal history of urinary calculi; Z71.3 Dietary counseling and surveillance
CPT/HCPCS: 31624; 36415; 71046; 80048; 80053; 83880; 84145; 84484; 85025; 87070; 87102; 87116; 87205; 87206; 87252; 87496; 87498; 87502; 87529; 87634; 87636; 87798; 88108; 88305; 89050; 93005; 93306; 94640; 94660; 94760; 94762; 96374; 99285

== ENCOUNTER 2023-02-27 16:05 | Observation (INO) | payer MEDICARE ==
[2023-02-27] MEDS ORDERED: SODIUM CHLORIDE 0.9% 500 ML 500 ML IV STA ×2 (16:26→19:53)
[2023-02-27] MEDS ORDERED: SODIUM CHLORIDE 0.9% 1,000 ML IV STA (16:26)
[2023-02-27] MEDS ORDERED: DILTIAZEM DRIP BOLUS FROM BAG 1 MG SOLN IV ONE ×2 (16:29→20:27)
[2023-02-27] MEDS ORDERED: niCARdipine 20 MG in SODIUM CHLORIDE 0.9% 192 ML IV SCH (16:30)
[2023-02-27 16:46] LABS: Basophils # (A) 0.1 k/uL (0-0.2); Basophils % (A) 1 %; Eosinophils # (A) 0.3 k/uL (0-0.7); Eosinophils % (A) 4 %; HGB 13.9 gm/dL (13.0-17.5); Lymphocytes # (A) 1.4 k/uL (1.0-4.8); Lymphocytes % (A) 20 %; MCH 29.2 pg (25.0-35.0); MCHC 33.1 g/dL (31.0-37.0); MCV 88.3 fL (80.0-100.0); Mean Platelet Volume 7.5; Monocytes # (A) 0.5 k/uL (0-1.0); Monocytes % (A) 8 %; Neutrophils # (A) 4.5 k/uL (1.3-7.7); Neutrophils % (A) 65 %; Platelet Count 257 k/uL (150-450); RBC 4.75 m/uL (4.30-5.90); RDW 14.7 % (11.5-15.5)
[2023-02-27 16:55] LABS: ALT 32 U/L (4-49); AST 28 U/L (17-59); African American GFR (CKD) >90 (>60 ml/min/1.73 sqM); Albumin 3.9 g/dL (3.5-5.0); Alkaline Phosphatase 92 U/L (38-126); Anion Gap 8 mmol/L; Blood Urea Nitrogen 16 mg/dL (9-20); Calcium 9.1 mg/dL (8.4-10.2); Carbon Dioxide 25 mmol/L (22-30); Chloride 106 mmol/L (98-107); Glucose 128 mg/dL (74-99); Magnesium 1.9 mg/dL (1.6-2.3); Non-African American GFR(CKD) 85 (>60 ml/min/1.73 sqM); Potassium 3.3 mmol/L (3.5-5.1); Sodium 139 mmol/L (137-145); Total Bilirubin 0.8 mg/dL (0.2-1.3); Total Protein 6.9 g/dL (6.3-8.2)
[2023-02-27] MEDS ORDERED: DILTIAZEM 5 MG/ML 5 ML VIAL IV NR (17:00)
[2023-02-27 17:01] LABS: Partial Thromboplastin Time 22.5 sec (22.0-30.0); Prothrombin Time 10.7 sec (9.0-12.0)
--- NOTE | 2023-02-27 17:09 | XR ---
EXAMINATION TYPE: XR chest 1V portable DATE OF EXAM: 02/27/2023 COMPARISON: 11/22/2022 INDICATION: Seeing spots TECHNIQUE: Single frontal view of the chest is obtained. FINDINGS: The heart size is normal. The pulmonary vasculature is normal. The lungs are clear. IMPRESSION: 1. No acute pulmonary process.
--- NOTE | 2023-02-27 17:42 | ED ---
Dizziness HPI - General Chief Complaint: Chest Pain Stated Complaint: Dizziness,Chest Pain Time Seen by Provider: 02/27/23 16:20 Source: patient, RN notes reviewed, old records reviewed Mode of arrival: ambulatory Limitations: no limitations - History of Present Illness Initial Comments: This is a 67-year-old male to the ER for evaluation today. Patient presents today for evaluation of dizziness lightheadedness not feeling well elevated heart rate was sent in for elevated heart rate possibly atrial fibrillation was found to be nature fibrillation here in the emergency department. No change in medications no other complaints no chest pain currently MD Complaint: dizziness, lightheadedness, other (Elevated heart rate at his doctor's office) Timing: unsure, constant Description: lightheadedness, near-syncope Severity: severe Improves With: nothing Worsens With: movement Associated Symptoms: denies other symptoms - Related Data Home Medications Medication Instructions Recorded Confirmed Primidone [Mysoline] 150 mg PO BID 12/20/17 02/27/23 Memantine [Namenda] 10 mg PO BID 02/17/20 02/27/23 Pramipexole Di-HCl [Mirapex] 1.5 mg PO HS 02/17/20 02/27/23 Furosemide [Lasix] 40 mg PO BID 03/10/21 02/27/23 Pregabalin [Lyrica] 200 mg PO HS 03/10/21 02/27/23 QUEtiapine [SEROquel] 100 mg PO HS 03/10/21 02/27/23 Sertraline [Zoloft] 200 mg PO HS 08/18/21 02/27/23 Ibuprofen [Motrin] 800 mg PO TID PRN 11/19/22 02/27/23 Albuterol Sulfate [Albuterol 2 puff INHALATION RT-Q4H PRN 02/27/23 02/27/23 Sulfate Hfa] Budesonide/Formoterol Fumarate 1 puff INHALATION RT-BID 02/27/23 02/27/23 [Symbicort 80-4.5 Mcg Inhaler] HYDROcodone/APAP 5-325MG [[place] 1 tab PO TID PRN 02/27/23 02/27/23 5-325] Metoprolol Succinate (ER) [Toprol 50 mg PO DAILY 02/27/23 02/27/23 Xl] hydrALAZINE HCL [Apresoline] 25 mg PO DAILY 02/27/23 02/27/23 Previous Rx's Medication Instructions Recorded Atorvastatin [Lipitor] 80 mg PO HS #30 tab 08/06/19 Nitroglycerin Sl Tabs [Nitrostat] 0.4 mg SUBLINGUAL Q5M PRN #30 tab 02/19/20 Aspirin 81 mg PO DAILY tab 11/25/22 Allergies Allergy/AdvReac Type Severity Reaction Status Date / Time No Known Allergies Allergy Verified 02/27/23 16:55 Review of Systems ROS Statement: Those systems with pertinent positive or pertinent negative responses have been documented in the HPI. ROS Other: All systems not noted in ROS Statement are negative. Past Medical History Past Medical History: Coronary Artery Disease (CAD), Chest Pain / Angina, Heart Failure, Dementia, GERD/Reflux, Hyperlipidemia, Hypertension, Myocardial Infarction ([place]), Neurologic Disorder, Pneumonia, Prostate Disorder, Renal Disease, Skin Disorder, Sleep Apnea/CPAP/BIPAP Additional Past Medical History / Comment(s): early parkinson's with essential tremors, "lewy body dementia" R nephrolithiasis with surgery, EDITH with no CPAP, Irritable Bowel Syndrome diarrhea off and on, pneumonia/bronchitis, BPH, blood in stool-EGD/colonoscopy were normal, past hiatal hernia(sx), past falls., kidney failure, Last Myocardial Infarction Date:: 06/09/13 History of Any Multi-Drug Resistant Organisms: None Reported Past Surgical History: Back Surgery, Heart Catheterization, Heart Catheterization With Stent, Hernia Repair Additional Past Surgical History / Comment(s): 05/2013 stent to LAD and then a cardiac cath which showed stent patent, Recent R kidney stone removal, 03/19/15 Laparoscopic Elizabeth fundlaplication. SKIN GRAFTS CHEST & BACK FROM BASSETT AT 13 YRS OLD., COLONOSCOPY. EGD, L [facility] eye surgery as toddler. Past Anesthesia/Blood Transfusion Reactions: No Reported Reaction Additional Past Anesthesia/Blood Transfusion Reaction / Comment(s): Pt received blood in 1967 without reaction. Date of Last Stent Placement:: 12/2017 Past Psychological History: Bipolar, Depression Smoking Status: Never smoker Past Alcohol Use History: None Reported Past Drug Use History: None Reported - Past Family History Mother Family Medical History: Liver Disease Additional Family Medical History / Comment(s): Mother was an alcoholic. She of cirrhosis of the liver at age 60yrs. Father Family Medical History: Cancer, Coronary Artery Disease (CAD), Myocardial Infarction ([place]) Additional Family Medical History / Comment(s): SKIN CA. Father of a [place] at age 65 yrs. Brother(s) Family Medical History: Cancer Additional Family Medical History / Comment(s): LEUKEMIA, LYMPH NODE CA AND MULTIPLE MYELOMA. General Exam Limitations: no limitations General appearance: alert, in no apparent distress, anxious Head exam: Present: atraumatic, normocephalic, normal inspection Eye exam: Present: normal appearance, PERRL, EOMI. Absent: scleral icterus, conjunctival injection, periorbital swelling ENT exam: Present: normal exam, mucous membranes moist Neck exam: Present: normal inspection. Absent: tenderness, meningismus, lymphadenopathy Respiratory exam: Present: normal lung sounds bilaterally. Absent: respiratory distress, wheezes, rales, rhonchi, stridor Cardiovascular Exam: Present: tachycardia, irregular rhythm, normal heart sound s. Absent: systolic murmur, diastolic murmur, rubs, gallop, clicks GI/Abdominal exam: Present: soft, normal bowel sounds. Absent: distended, tenderness, guarding, rebound, rigid Extremities exam: Present: normal inspection, full ROM, normal capillary refill. Absent: tenderness, pedal edema, joint swelling, calf tenderness Back exam: Present: normal inspection Neurological exam: Present: alert, oriented X3, CN II-XII intact Psychiatric exam: Present: normal affect, normal mood Skin exam: Present: warm, dry, intact, normal color. Absent: rash Course Vital Signs 02/27/23 02/27/23 02/27/23 16:10 16:50 17:08 Temperature 97.9 F Pulse Rate 170 H 137 H 96 Respiratory 18 20 18 Rate Blood Pressure 108/68 110/75 108/67 O2 Sat by Pulse 91 L 95 95 Oximetry 02/27/23 02/27/23 02/27/23 17:38 18:26 19:15 Temperature Pulse Rate 111 H 125 H 117 H Respiratory 20 19 17 Rate Blood Pressure 106/75 106/75 121/77 O2 Sat by Pulse 94 L 95 94 L Oximetry - Reevaluation(s) Reevaluation #1: 02/27/23 19:55 Medical record is reviewed Reevaluation #2: 02/27/23 19:56 patient's heart rate and blood pressure remained labile heart rate remains elevated despite treatment here in the ER Reevaluation #3: 02/27/23 19:56 Patient informed results and questions are answered Reevaluation #4: 02/27/23 19:56 Was pt. sent in by a medical professional or institution? @ -PCP Did you speak to anyone other than the patient for history? @ -family at bedside, PCP Did you review nursing and triage notes? @ -agree Were old charts reviewed? @ -yes Differential Diagnosis? @ -dizziness EKG interpreted by me (3pts min.)? @ -yes X-rays interpreted by me (1pt min.)? @ -yes CT interpreted by me (1pt min.)? @ -no U/S interpreted by me (1pt. min.)? @ -no What testing was considered but not performed? (CT, X-rays, U/S, labs)? Why? @ no What meds were considered but not given? Why? @ -no Did you discuss the management of the patient with other professionals? @ -no Did you reconcile home meds? @ -yes Was smoking cessation discussed for >3mins.? @ -no Was critical care preformed (if so, how long)? @ -yes Were there social determinants of health that impacted care today? How? (Homelessness, low income, unemployed, alcoholism, drug addiction, transportation, low edu. Level, literacy, decrease access to med. care, skilled nursing, rehab)? @ -no Was there de-escalation of care discussed even if they declined? (Discuss DNR or withdrawal of care, Hospice)? @ -no What co-morbidities impacted this encounter? (DM, HTN, Smoking, COPD, CAD, Cancer, CVA, Hep., AIDS, mental health diagnosis, sleep apnea, morbid obesity)? @ -no Was patient admitted / discharged? @ -admit Undiagnosed new problem with uncertain prognosis? @ -no Drug Therapy requiring intensive monitoring for toxicity (Heparin, Nitro, Insulin, Cardizem)? @ -cardizem Were any procedures done? @ -no Diagnosis/symptom? @ -afibRVR Acute, or Chronic, or Acute on Chronic? @ -AonC Uncomplicated (without systemic symptoms) or Complicated (systemic symptoms)? @ -compicated Side effects of treatment? @ -yes Exacerbation, Progression, or Severe Exacerbation] @ -exacerbation/severe Poses a threat to life or bodily function? @ -yes Reevaluation #5: 02/27/23 19:56 Differential Dizziness: Benign paroxysmal positional Vertigo, Menieres disease, otitis media, acoustic neuroma, vertebrobasilar insufficiency, cerebellar stroke, encephalitis, hypovolemic, arrhythmia, coronary artery syndrome, anemia, this is not meant to be an all-inclusive list - Consultations Consultation #1: spoke w [facility] re admission and they are agreeable EKG Findings - EKG Comments: EKG Findings:: KGS shows arib RVR 147 QRS 99 QTc 383 Medical Decision Making - Medical Decision Making 67 male to the ER for evaluation patient presents today for evaluation of elevated heart rate and dizziness with labile blood pressure here in the ER A. fib with RVR will admit for rate control hydration and electronically - Lab Data Result diagrams: 02/27/23 16:33 02/27/23 16:33 Lab Results 02/27/23 02/27/23 02/27/23 Range/Units 16:33 16:33 16:33 WBC 7.0 (3.8-10.6) k/uL RBC 4.75 (4.30-5.90) m/uL Hgb 13.9 (13.0-17.5) gm/dL Hct 42.0 (39.0-53.0) % MCV 88.3 (80.0-100.0) fL MCH 29.2 (25.0-35.0) pg MCHC 33.1 (31.0-37.0) g/dL RDW 14.7 (11.5-15.5) % Plt Count 257 (150-450) k/uL MPV 7.5 Neutrophils % 65 % Lymphocytes % 20 % Monocytes % 8 % Eosinophils % 4 % Basophils % 1 % Neutrophils # 4.5 (1.3-7.7) k/uL Lymphocytes # 1.4 (1.0-4.8) k/uL Monocytes # 0.5 (0-1.0) k/uL Eosinophils # 0.3 (0-0.7) k/uL Basophils # 0.1 (0-0.2) k/uL PT 10.7 (9.0-12.0) sec INR 1.0 (<1.2) APTT 22.5 (22.0-30.0) sec Sodium 139 (137-145) mmol/L Potassium 3.3 L (3.5-5.1) mmol/L Chloride 106 (98-107) mmol/L Carbon Dioxide 25 (22-30) mmol/L Anion Gap 8 mmol/L BUN 16 (9-20) mg/dL Creatinine 0.94 (0.66-1.25) mg/dL Est GFR (CKD-EPI)AfAm >90 (>60 ml/min/1.73 sqM) Est GFR (CKD-EPI)NonAf 85 (>60 ml/min/1.73 sqM) Glucose 128 H (74-99) mg/dL Calcium 9.1 (8.4-10.2) mg/dL Magnesium 1.9 (1.6-2.3) mg/dL Total Bilirubin 0.8 (0.2-1.3) mg/dL AST 28 (17-59) U/L ALT 32 (4-49) U/L Alkaline Phosphatase 92 (38-126) U/L Troponin I (0.000-0.034) ng/mL NT-Pro-B Natriuret Pep pg/mL Total Protein 6.9 (6.3-8.2) g/dL Albumin 3.9 (3.5-5.0) g/dL 02/27/23 02/27/23 Range/Units 16:33 16:33 WBC (3.8-10.6) k/uL RBC (4.30-5.90) m/uL Hgb (13.0-17.5) gm/dL Hct (39.0-53.0) % MCV (80.0-100.0) fL MCH (25.0-35.0) pg MCHC (31.0-37.0) g/dL RDW (11.5-15.5) % Plt Count (150-450) k/uL MPV Neutrophils % % Lymphocytes % % Monocytes % % Eosinophils % % Basophils % % Neutrophils # (1.3-7.7) k/uL Lymphocytes # (1.0-4.8) k/uL Monocytes # (0-1.0) k/uL Eosinophils # (0-0.7) k/uL Basophils # (0-0.2) k/uL PT (9.0-12.0) sec INR (<1.2) APTT (22.0-30.0) sec Sodium (137-145) mmol/L Potassium (3.5-5.1) mmol/L Chloride (98-107) mmol/L Carbon Dioxide (22-30) mmol/L Anion Gap mmol/L BUN (9-20) mg/dL Creatinine (0.66-1.25) mg/dL Est GFR (CKD-EPI)AfAm (>60 ml/min/1.73 sqM) Est GFR (CKD-EPI)NonAf (>60 ml/min/1.73 sqM) Glucose (74-99) mg/dL Calcium (8.4-10.2) mg/dL Magnesium (1.6-2.3) mg/dL Total Bilirubin (0.2-1.3) mg/dL AST (17-59) U/L ALT (4-49) U/L Alkaline Phosphatase (38-126) U/L Troponin I 0.025 (0.000-0.034) ng/mL NT-Pro-B Natriuret Pep 411 pg/mL Total Protein (6.3-8.2) g/dL Albumin (3.5-5.0) g/dL - EKG Data -: EKG Interpreted by Me (EKG does show atrial fibrillation with RVR no ST elevation no ST depression) Critical Care Time Critical Care Time: Yes Total Critical Care Time: 31 Disposition Clinical Impression: Chest pain, Atrial fibrillation with RVR, Hypokalemia Disposition: ADMITTED IP TO THIS [facility] Condition: Serious Is patient prescribed a controlled substance at d/c from ED?: No Referrals: Román Gutierrez DO [Primary Care Provider] - 1-2 days Time of Disposition: 20:00
[2023-02-27] MEDS ORDERED: MORPHINE SULFATE 4 MG/ML SYRINGE IV PRN (18:31)
[2023-02-27] MEDS ORDERED: MORPHINE SULFATE 4 MG/ML SYRINGE IVP STA (18:31)
[2023-02-27] MEDS ORDERED: KETOROLAC 15 MG/ML 1 ML VIAL IVP STA (18:31)
[2023-02-27] MEDS ORDERED: POTASSIUM BICARBONATE/CIT AC 20 MEQ TABLET.EFF PO ONE (19:53)
[2023-02-27] MEDS ORDERED: METOPROLOL TARTRATE 5 MG/5 ML VIAL IVP STA (19:53)
[2023-02-27] MEDS ORDERED: DILTIAZEM 5 MG/ML 5 ML VIAL IVP STA (20:26)
[2023-02-27] MEDS ORDERED: DILTIAZEM 125 MG in SODIUM CHLORIDE 0.9% 100 ML IV SCH (20:30)
[2023-02-27] MEDS: POTASSIUM BICARBONATE/CIT AC 20 MEQ TABLET.EFF PO SCH ×2 (20:34→23:21)
[2023-02-27] MEDS ORDERED: GABAPENTIN 100 MG CAP PO STA (23:07)
[2023-02-27] MEDS ORDERED: GABAPENTIN 100 MG CAP PO ONE (23:15)
[2023-02-27] MEDS ORDERED: PRAMIPEXOLE 0.5 MG TAB PO SCH (23:15)
[2023-02-28 00:16] VITALS: RESP 16
[2023-02-28] MEDS ORDERED: ONDANSETRON 4 MG/2 ML VIAL IVP PRN (00:16)
[2023-02-28] MEDS ORDERED: NALOXONE 0.4 MG/ML 1 ML VIAL IV PRN (00:16)
[2023-02-28] MEDS: PRIMIDONE 50 MG TAB PO SCH ×2 (00:22→08:42)
[2023-02-28] MEDS: tiZANidine 4 MG TAB PO SCH ×2 (00:22→08:43)
[2023-02-28 03:16] VITALS: TEMP 97.9
[2023-02-28] MEDS ORDERED: FUROSEMIDE 40 MG TAB PO SCH (09:00)
[2023-02-28] MEDS ORDERED: hydrALAZINE HCL 25 MG TAB PO SCH (09:00)
[2023-02-28] MEDS ORDERED: ASPIRIN 81 MG PO SCH (09:00)
[2023-02-28] MEDS ORDERED: METOPROLOL SUCCINATE (ER) 50 MG TAB.ER.24H PO SCH (09:00)
[2023-02-28 09:22] LABS: ALT 27 U/L (4-49); AST 24 U/L (17-59); African American GFR (CKD) >90 (>60 ml/min/1.73 sqM); Albumin 3.3 g/dL (3.5-5.0); Alkaline Phosphatase 72 U/L (38-126); Anion Gap 5 mmol/L; Blood Urea Nitrogen 14 mg/dL (9-20); Calcium 8.1 mg/dL (8.4-10.2); Carbon Dioxide 27 mmol/L (22-30); Chloride 108 mmol/L (98-107); Glucose 96 mg/dL (74-99); Magnesium 2.1 mg/dL (1.6-2.3); Non-African American GFR(CKD) >90 (>60 ml/min/1.73 sqM); Potassium 3.6 mmol/L (3.5-5.1); Sodium 140 mmol/L (137-145); Total Bilirubin 0.5 mg/dL (0.2-1.3)
[2023-02-28] MEDS ORDERED: SYMBICORT 80-4.5 MCG INHALER INHALATION SCH (10:52)
[2023-02-28] MEDS ORDERED: HYDROcodone/APAP 5-325MG 1 EACH TAB PO PRN (10:52)
[2023-02-28] MEDS ORDERED: ALBUTEROL HFA INHALER INHALATION PRN (10:52)
[2023-02-28] MEDS ORDERED: NITROGLYCERIN SL TABS 0.4 MG TAB SUBLINGUAL PRN (10:52)
[2023-02-28] MEDS ORDERED: MEMANTINE 10 MG TAB PO SCH (11:00)
[2023-02-28 11:28] VITALS: BP 132/79; PULSE 79
--- NOTE | 2023-02-28 12:00 | CONS ---
CONSULTATION HISTORY OF PRESENT ILLNESS: Mr. Michael is a 67-year-old gentleman with a known history of CAD, prior multivessel PCI involving all 3 vessels. He also has a history of hypertension and hyperlipidemia. He came into the hospital yesterday through the emergency room with complaints of having lightheadedness, dizziness, felt rapid heart rate. He apparently went to his neurologist's office and was found to have a rapid heart rate and was sent to the emergency room. He also had dizziness and lightheadedness but no syncope and had shortness of breath. After arrival, he was found to be in atrial fibrillation with a rapid ventricular rate and has converted to sinus rhythm. He is resting comfortably without symptoms at the time of my evaluation. This is a new onset atrial fibrillation for him. He also has multiple comorbid conditions in the form of CAD, hypertension, hyperlipidemia, question of dementia, and also benign prostatic hypertrophy and obstructive sleep apnea, wears a CPAP. At the time of my evaluation, he is resting comfortably without symptoms. His EKG revealed sinus mechanism without acute changes. On arrival in the emergency room, he had atrial fibrillation, rapid ventricular rate with minor IVCD, rate in the 140s. PAST MEDICAL HISTORY: 1. CAD with multivessel PCI involving all 3 vessels. 2. Hypertension. 3. Hyperlipidemia. 4. Dementia. 5. History of some Parkinson's syndrome, and also, he is under the care of a neurologist. His last PCI procedure was performed in December 2017, mid RCA stenting and also distal circumflex stenting and mid circumflex stenting. MEDICATIONS AT HOME: Include: 1. Albuterol inhaler. 2. Metoprolol succinate 50 mg daily. 3. He takes primidone. 4. Namenda. 5. Lasix 40 mg b.i.d. 6. Lyrica. 7. Atorvastatin 80 mg daily. 8. Also, some Zoloft. 9. Aspirin 81 mg daily. LABORATORY DATA: Revealed an elevated troponin of 0.124, which has come down to 0.08. His troponin elevation is probably related to atrial fibrillation, rapid rate. He is resting comfortably with a normal EKG at this time. PHYSICAL EXAMINATION: VITAL SIGNS: Blood pressure is 140/80, pulse rate is 67 per minute. HEENT: Unremarkable. Fundus was not examined by me. NECK: Supple. No JVD. I do not hear a carotid bruit. HEART: Reveals S1 and S2 with a short systolic murmur at left sternal border. Preserved second heart sound. LUNGS: Clear. ABDOMEN: Soft and nontender. EXTREMITIES: Lower extremities reveal normal pulses. No edema. CENTRAL NERVOUS SYSTEM: Normal. IMPRESSION: 1. Atrial fibrillation, paroxysmal, rapid ventricular rate, now in sinus rhythm. 2. Coronary artery disease with multivessel percutaneous coronary intervention. 3. Elevated troponin related to atrial fibrillation, rapid ventricular rate. 4. Hypertension. 5. Hyperlipidemia. RECOMMENDATIONS: I am recommending that we increase activity, start him on Xarelto 20 mg daily, continue aspirin 81 mg daily, and possibly discharge him today, and he will see Dr. Hernandez in 2 to 3 weeks. To call if he has a question, concern, or problem. Discussed my thoughts in detail with the patient. We will check another troponin, and if it is coming down, we can send him home. [id number] / MARYN: [id number] /
[2023-02-28] MEDS ORDERED: RIVAROXABAN 20 MG TAB PO SCH (17:30)
--- NOTE | 2023-02-28 19:46 | P.HPIM ---
History of Present Illness H&P Date: 02/28/23 Chief Complaint: Chest pressure 67-year-old patient of Dr. Gutierrez. Chronic stable medical conditions include cognitive impairment, GERD, hyperlipidemia, hypertension, early Parkinson's versus essential tremor, reported dementia, obstructive sleep apnea does not use CPAP, irritable bowel syndrome, BPH hiatal hernia. Has known coronary artery disease with stent. Patient was at her appointment yesterday. He was told by his physician that his heart rate was up to 1 190s. Patient being feeling dizzy lightheaded. Some chest pressure. Was sent out of the ER. Had a small troponin leak. Started on IV Cardizem drip. No prior history of atrial fibrillation.] Review of systems: GEN.: Tired EYES: None HEENT: None NECK: None RESPIRATORY: None CARDIOVASCULAR: As above GASTROINTESTINAL: None GENITOURINARY: None MUSCULOSKELETAL: None LYMPHATICS: None HEMATOLOGICAL: None PSYCHIATRY: None NEUROLOGICAL: None Past medical history to include: Coronary artery disease with stent, cognitive impairment, GERD, hyperlipidemia, hypertension, Parkinson disease, BPH, obstructive sleep apnea does not use CPAP, hiatal hernia Elizabeth fundoplication depression Social history: lives with no smoking. Stopped drinking alcohol in 2004. Prior to that used to drink every day On examination: VITAL SIGNS: 97.9, 170, 18, 108/68, 91% room air upon presentation GENERAL APPEARANCE: BMI 29.3, awake, declining in bed, " HEENT: Normal external appearance of nose and ear. Oral cavity normal EYES: Pupils equal. Conjunctiva normal. NECK: JVD not raised. Mass not palpable. RESPIRATORY: Respiratory effort . Lungs decreased breath sounds, CARDIOVASCULAR: First and second sounds normal. No edema. ABDOMEN: Soft. Liver and spleen not palpable. No tenderness. No mass palpable. PSYCHIATRY: Alert and oriented x3. Mood and affect normal. NEUROLOGICAL: Cranial nerves grossly intact per sensation grossly intact LYMPHATICS: No lymph nodes were palpable neck and axilla INVESTIGATIONS, reviewed in the clinical context: February 28: Potassium 3.6 creatinine 0.78 Admission labs: White count 7 hemoglobin 13.9 platelets 257 potassium 3.3 crit 0.94 Troponin I 0.025, 0.124, 0.084. TSH 2.1 EKG tracing personally reviewed by me-atrial fibrillation, rate 147 Chest x-ray film personally reviewed by me-some hyperinflation Assessment and plan: -Paroxysmal atrial fibrillation with rapid ventricular rate on presentation. Started on Cardizem drip. Started on xarelto. 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 Started on xarelto. Other medications continue. Follow with cardiology. Past Medical History Past Medical History: Coronary Artery Disease (CAD), Chest Pain / Angina, Heart Failure, Dementia, GERD/Reflux, Hyperlipidemia, Hypertension, Myocardial Infarction ([place]), Neurologic Disorder, Pneumonia, Prostate Disorder, Renal Disease, Skin Disorder, Sleep Apnea/CPAP/BIPAP Additional Past Medical History / Comment(s): early parkinson's with essential tremors, "lewy body dementia" R nephrolithiasis with surgery, EDITH with no CPAP, Irritable Bowel Syndrome diarrhea off and on, pneumonia/bronchitis, BPH, blood in stool-EGD/colonoscopy were normal, past hiatal hernia(sx), past falls., kidney failure, Last Myocardial Infarction Date:: 06/09/13 History of Any Multi-Drug Resistant Organisms: None Reported Past Surgical History: Back Surgery, Heart Catheterization, Heart Catheterization With Stent, Hernia Repair Additional Past Surgical History / Comment(s): 05/2013 stent to LAD and then a cardiac cath which showed stent patent, Recent R kidney stone removal, 03/19/15 Laparoscopic Elizabeth fundlaplication. SKIN GRAFTS CHEST & BACK FROM BASSETT AT 13 YRS OLD., COLONOSCOPY. EGD, [facility] as toddler. Past Anesthesia/Blood Transfusion Reactions: No Reported Reaction Additional Past Anesthesia/Blood Transfusion Reaction / Comment(s): Pt received blood in 1967 without reaction. Date of Last Stent Placement:: 12/2017 Past Psychological History: Bipolar, Depression Additional Psychological History / Comment(s): Pt lives with his . He has depression but states medication for this is working. He is normally independent. Smoking Status: Never smoker Past Alcohol Use History: None Reported Additional Past Alcohol Use History / Comment(s): Pt quit drinking alcohol in 2004( drank almost on daily basis) Past Drug Use History: None Reported - Past Family History Mother Family Medical History: Liver Disease Additional Family Medical History / Comment(s): Mother was an alcoholic. She of cirrhosis of the liver at age 60yrs. Father Family Medical History: Cancer, Coronary Artery Disease (CAD), Myocardial Infarction ([place]) Additional Family Medical History / Comment(s): SKIN CA. Father of a [place] at age 65 yrs. Brother(s) Family Medical History: Cancer Additional Family Medical History / Comment(s): LEUKEMIA, LYMPH NODE CA AND MULTIPLE MYELOMA. Medications and Allergies Home Medications Medication Instructions Recorded Confirmed Type Primidone [Mysoline] 150 mg PO BID 12/20/17 02/27/23 History Atorvastatin [Lipitor] 80 mg PO HS #30 tab 08/06/19 02/27/23 Rx Memantine [Namenda] 10 mg PO BID 02/17/20 02/27/23 History Pramipexole Di-HCl [Mirapex] 1.5 mg PO HS 02/17/20 02/27/23 History Nitroglycerin Sl Tabs [Nitrostat] 0.4 mg SUBLINGUAL Q5M PRN #30 tab 02/19/20 02/27/23 Rx Furosemide [Lasix] 40 mg PO BID 03/10/21 02/27/23 History Pregabalin [Lyrica] 200 mg PO HS 03/10/21 02/27/23 History QUEtiapine [SEROquel] 100 mg PO HS 03/10/21 02/27/23 History Sertraline [Zoloft] 200 mg PO HS 08/18/21 02/27/23 History Aspirin 81 mg PO DAILY tab 11/25/22 02/27/23 Rx Albuterol Sulfate [Albuterol 2 puff INHALATION RT-Q4H PRN 02/27/23 02/27/23 History Sulfate Hfa] Budesonide/Formoterol Fumarate 1 puff INHALATION RT-BID 02/27/23 02/27/23 History [Symbicort 80-4.5 Mcg Inhaler] HYDROcodone/APAP 5-325MG [[place] 1 tab PO TID PRN 02/27/23 02/27/23 History 5-325] Metoprolol Succinate (ER) [Toprol 50 mg PO DAILY 02/27/23 02/27/23 History XL] Rivaroxaban [Xarelto] 20 mg PO W/SUPPER #30 tab 02/28/23 Rx tiZANidine [Zanaflex] 2 mg PO TID #60 tab 02/28/23 Rx Allergies Allergy/AdvReac Type Severity Reaction Status Date / Time No Known Allergies Allergy Verified 02/27/23 16:55 Physical Exam Vitals: Vital Signs Temp Pulse Pulse Resp BP BP Pulse Ox 02/28/23 08:52 94 L 02/28/23 08:27 97.9 F 67 16 142/80 97 02/28/23 03:15 97.9 F 66 16 109/67 94 L 02/28/23 01:02 97.7 F 88 16 118/82 99 02/28/23 00:40 98.6 F 77 16 117/68 95 02/28/23 00:15 16 02/27/23 22:35 78 17 104/80 96 02/27/23 21:17 88 18 129/101 96 02/27/23 20:35 79 18 109/74 95 02/27/23 19:15 117 H 17 121/77 94 L 02/27/23 18:26 125 H 19 106/75 95 02/27/23 17:38 111 H 20 106/75 94 L 02/27/23 17:08 96 18 108/67 95 02/27/23 16:50 137 H 20 110/75 95 02/27/23 16:10 97.9 F 170 H 18 108/68 91 L Intake and Output 02/27/23 02/28/23 02/28/23 22:59 06:59 14:59 Intake Total 140.417 25 Output Total 200 Balance 140.417 25 -200 Intake: Intake, IV Titration 140.417 25 Amount Diltiazem 125 mg In 25 Sodium Chloride 0.9% 100 ml @ 5 MG/HR 5 mls/hr IV .Q24H [facility] Rx#:[id number] niCARdipine 20 mg In 140.417 Sodium Chloride 0.9% 192 ml @ 5 MG/HR 50 mls/hr IV .Q4H [facility] Rx#:[id number] Output: Urine 200 Other: Voiding Method Toilet Urinal # Voids 1 Weight 104.326 kg 103.5 kg Results CBC & Chem 7: 02/27/23 16:33 02/28/23 08:15 Labs: Abnormal Lab Results - Last 24 Hours (Table) 02/27/23 02/28/23 02/28/23 Range/Units 16:33 03:46 08:15 Potassium 3.3 L (3.5-5.1) mmol/L Chloride (98-107) mmol/L Glucose 128 H (74-99) mg/dL Calcium (8.4-10.2) mg/dL Troponin I 0.124 H* 0.084 H* (0.000-0.034) ng/mL Total Protein (6.3-8.2) g/dL Albumin (3.5-5.0) g/dL 02/28/23 Range/Units 08:15 Potassium (3.5-5.1) mmol/L Chloride 108 H (98-107) mmol/L Glucose (74-99) mg/dL Calcium 8.1 L (8.4-10.2) mg/dL Troponin I (0.000-0.034) ng/mL Total Protein 6.0 L (6.3-8.2) g/dL Albumin 3.3 L (3.5-5.0) g/dL Thrombosis Risk Factor Assmnt - Choose All That Apply Any of the Below Risk Factors Present?: Yes Each Risk Factor Represents 2 Points: Age 61-74 years Thrombosis Risk Factor Assessment Total Risk Factor Score: 2 Thrombosis Risk Factor Assessment Level: Low Risk
--- NOTE | 2023-02-28 19:49 | P.DS ---
Providers Date of admission: 02/28/23 00:17 Expected date of discharge: 02/28/23 Attending physician: Pierce Chakraborty Consults: 02/28/23 00:16 Consult Physician Routine Consulting Provider: Dasia Joshi Consult Reason/Comments: afibRVR Do you want consulting provider notified?: Yes Primary care physician: [facility] Course: Chief Complaint: Chest pressure 67-year-old patient of Dr. Gutierrez. Chronic stable medical conditions include cognitive impairment, GERD, hyperlipidemia, hypertension, early Parkinson's versus essential tremor, reported dementia, obstructive sleep apnea does not use CPAP, irritable bowel syndrome, BPH hiatal hernia. Has known coronary artery disease with stent. Patient was at her appointment yesterday. He was told by his physician that his heart rate was up to 1 190s. Patient being feeling dizzy lightheaded. Some chest pressure. Was sent out of the ER. Had a small troponin leak. Started on IV Cardizem drip. No prior history of atrial fibrillation. Later patient converted to sinus rhythm. Started on xarelto. Patient cleared by cardiology to go home. He'll follow-up with Dr. Menendez. Past medical history to include: Coronary artery disease with stent, cognitive impairment, GERD, hyperlipidemia, hypertension, Parkinson disease, BPH, obstructive sleep apnea does not use CPAP, hiatal hernia Elizabeth fundoplication depression Social history: lives with no smoking. Stopped drinking alcohol in 2004. Prior to that used to drink every day On examination: VITAL SIGNS: Afebrile, 78, 17, 104/80, 96% on room air GENERAL APPEARANCE: BMI 29.3, awake, resting HEENT: Normal external appearance of nose and ear. Oral cavity normal EYES: Pupils equal. Conjunctiva normal. NECK: JVD not raised. Mass not palpable. RESPIRATORY: Respiratory effort . Lungs decreased breath sounds, CARDIOVASCULAR: First and second sounds normal. No edema. ABDOMEN: Soft. Liver and spleen not palpable. No tenderness. No mass palpable. PSYCHIATRY: Alert and oriented x3. Mood and affect normal. NEUROLOGICAL: Cranial nerves grossly intact per sensation grossly intact LYMPHATICS: No lymph nodes were palpable neck and axilla INVESTIGATIONS, reviewed in the clinical context: February 28: Potassium 3.6 creatinine 0.78 Admission labs: White count 7 hemoglobin 13.9 platelets 257 potassium 3.3 crit 0.94 Troponin I 0.025, 0.124, 0.084. TSH 2.1 EKG tracing personally reviewed by me-atrial fibrillation, rate 147 Chest x-ray film personally reviewed by me-some hyperinflation Assessment and plan: -Paroxysmal atrial fibrillation with rapid ventricular rate on presentation., Back in sinus rhythm Started on Cardizem drip-discontinued. Started on xarelto. Cardiology consulted -Troponin leak due to uncontrolled A. fib. 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 Namenda -Irritable bowel syndrome -Bipolar depression Zoloft, Seroquel Disposition: Home Plan - Discharge Summary Discharge Rx Participant: No New Discharge Prescriptions: New Rivaroxaban [Xarelto] 20 mg PO W/SUPPER #30 tab tiZANidine [Zanaflex] 2 mg PO TID #60 tab Continue Primidone [Mysoline] 150 mg PO BID Atorvastatin [Lipitor] 80 mg PO HS #30 tab Memantine [Namenda] 10 mg PO BID Pramipexole Di-HCl [Mirapex] 1.5 mg PO HS Nitroglycerin Sl Tabs [Nitrostat] 0.4 mg SUBLINGUAL Q5M PRN #30 tab PRN Reason: Chest Pain Furosemide [Lasix] 40 mg PO BID Pregabalin [Lyrica] 200 mg PO HS QUEtiapine [SEROquel] 100 mg PO HS Sertraline [Zoloft] 200 mg PO HS Budesonide/Formoterol Fumarate [Symbicort 80-4.5 Mcg Inhaler] 1 puff INHALATION RT-BID Aspirin 81 mg PO DAILY tab Albuterol Sulfate [Albuterol Sulfate Hfa] 2 puff INHALATION RT-Q4H PRN PRN Reason: Shortness Of Breath HYDROcodone/APAP 5-325MG [[place] 5-325] 1 tab PO TID PRN PRN Reason: Pain Metoprolol Succinate (ER) [Toprol XL] 50 mg PO DAILY Discontinued Ibuprofen [Motrin] 800 mg PO TID PRN PRN Reason: Pain Or Fever > 100.5 hydrALAZINE HCL [Apresoline] 25 mg PO DAILY Discharge Medication List Primidone [Mysoline] 150 mg PO BID 12/20/17 [History] Atorvastatin [Lipitor] 80 mg PO HS #30 tab 08/06/19 [Rx] Memantine [Namenda] 10 mg PO BID 02/17/20 [History] Pramipexole Di-HCl [Mirapex] 1.5 mg PO HS 02/17/20 [History] Nitroglycerin Sl Tabs [Nitrostat] 0.4 mg SUBLINGUAL Q5M PRN #30 tab 02/19/20 [Rx] Furosemide [Lasix] 40 mg PO BID 03/10/21 [History] Pregabalin [Lyrica] 200 mg PO HS 03/10/21 [History] QUEtiapine [SEROquel] 100 mg PO HS 03/10/21 [History] Sertraline [Zoloft] 200 mg PO HS 08/18/21 [History] Aspirin 81 mg PO DAILY tab 11/25/22 [Rx] Albuterol Sulfate [Albuterol Sulfate Hfa] 2 puff INHALATION RT-Q4H PRN 02/27/23 [History] Budesonide/Formoterol Fumarate [Symbicort 80-4.5 Mcg Inhaler] 1 puff INHALATION RT-BID 02/27/23 [History] HYDROcodone/APAP 5-325MG [[place] 5-325] 1 tab PO TID PRN 02/27/23 [History] Metoprolol Succinate (ER) [Toprol XL] 50 mg PO DAILY 02/27/23 [History] Rivaroxaban [Xarelto] 20 mg PO W/SUPPER #30 tab 02/28/23 [Rx] tiZANidine [Zanaflex] 2 mg PO TID #60 tab 02/28/23 [Rx] Follow up Appointment(s)/Referral(s): Román Gutierrez DO [Primary Care Provider] - 03/02/23 11:20 am Deshawn Hernandez MD [STAFF PHYSICIAN] - 03/22/23 1:45 pm Patient Instructions/Handouts: A-fib (Atrial Fibrillation) (DC), Safe Use of Anticoagulants (ED) Discharge Disposition: HOME SELF-CARE
[2023-02-28] MEDS ORDERED: SERTRALINE 100 MG TAB PO SCH (21:00)
[2023-02-28] MEDS ORDERED: ATORVASTATIN 80 MG TAB PO SCH (21:00)
[2023-02-28] MEDS ORDERED: PREGABALIN 100 MG CAP PO SCH (21:00)
[2023-02-28] MEDS ORDERED: QUEtiapine 100 MG TAB PO SCH (21:00)
== END 2023-02-28 14:57 | disposition home or self-care (01) ==
LOC: EC 16:05 → 3SCARD 02-28 00:17 → INTOOBSV 02-28 00:17 → 3SCARD 02-28 00:28 → UNDODISIN 02-28 14:57
PROVIDERS: ADMIT Hospitalist; ATTEND Hospitalist
DX: I48.0 Paroxysmal atrial fibrillation (principal); E87.6 Hypokalemia; G31.83 Neurocognitive disorder with Lewy bodies; F02.83 Dementia in other diseases classified elsewhere, unspecified severity, with mood disturbance; R79.89 Other specified abnormal findings of blood chemistry; I25.10 Atherosclerotic heart disease of native coronary artery without angina pectoris; I11.0 Hypertensive heart disease with heart failure; I50.9 Heart failure, unspecified; N40.0 Benign prostatic hyperplasia without lower urinary tract symptoms; G47.33 Obstructive sleep apnea (adult) (pediatric); G20 Parkinson's disease; K21.9 Gastro-esophageal reflux disease without esophagitis; K58.9 Irritable bowel syndrome, unspecified; K44.9 Diaphragmatic hernia without obstruction or gangrene; F31.9 Bipolar disorder, unspecified; E78.5 Hyperlipidemia, unspecified; Z79.82 Long term (current) use of aspirin; Z79.51 Long term (current) use of inhaled steroids; Z79.899 Other long term (current) drug therapy; Z95.5 Presence of coronary angioplasty implant and graft; I25.2 Old myocardial infarction; Z87.442 Personal history of urinary calculi; Z87.01 Personal history of pneumonia (recurrent); Z98.890 Other specified postprocedural states; Z63.72 Alcoholism and drug addiction in family; Z81.1 Family history of alcohol abuse and dependence; Z82.49 Family history of ischemic heart disease and other diseases of the circulatory system; Z83.79 Family history of other diseases of the digestive system; Z80.7 Family history of other malignant neoplasms of lymphoid, hematopoietic and related tissues; Z80.6 Family history of leukemia; Z80.8 Family history of malignant neoplasm of other organs or systems
CPT/HCPCS: 96366 ×2; 96376; 96361; 96365; 96367; 96375; 99291; 36415; 94640; 94760; 93005; 83880; 80053 ×2; 84443; 83735 ×2; 84484 ×2; 85025; 85610; 85730; 71045; G0378; J1885

== ENCOUNTER → 2023-02-27 | Outpatient (CLI) | payer MEDICARE | END | disposition home or self-care (01) | LOC: LABWHC1 15:48 | PROVIDERS: ATTEND Psychiatry & Neurology Neurology | DX: I49.9 Cardiac arrhythmia, unspecified (principal) | CPT/HCPCS: 36415; 93005 ==

== ENCOUNTER → 2023-07-04 | Outpatient (CLI) | payer MEDICARE ==
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
== END | disposition home or self-care (01) ==
LOC: RADUSWWP 10:19
PROVIDERS: ATTEND Family Medicine
DX: R22.2 Localized swelling, mass and lump, trunk (principal)
CPT/HCPCS: 76705

== ENCOUNTER 2023-11-06 19:12 | Emergency (ER) | payer MEDICARE, OTHER ==
[2023-11-06 19:31] VITALS: TEMP 97.9
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
[2023-11-06 23:05] VITALS: BP 173/91; PULSE 63; RESP 16
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
== END 2023-11-06 22:59 | disposition home or self-care (01) ==
LOC: EC 19:12
DX: M54.2 Cervicalgia (principal); M54.50 Low back pain, unspecified; I25.10 Atherosclerotic heart disease of native coronary artery without angina pectoris; I11.0 Hypertensive heart disease with heart failure; I50.9 Heart failure, unspecified; I25.2 Old myocardial infarction; G47.30 Sleep apnea, unspecified; F31.9 Bipolar disorder, unspecified; Z79.899 Other long term (current) drug therapy; V89.2XXA Person injured in unspecified motor-vehicle accident, traffic, initial encounter; Y92.410 Unspecified street and highway as the place of occurrence of the external cause
CPT/HCPCS: 72050; 72100; 99284

== ENCOUNTER → 2023-12-28 | Outpatient (CLI) | payer MEDICARE ==
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
== END | disposition home or self-care (01) ==
LOC: RADUSWWP 15:46
PROVIDERS: ATTEND Family Medicine
DX: R22.1 Localized swelling, mass and lump, neck (principal); R09.89 Other specified symptoms and signs involving the circulatory and respiratory systems
CPT/HCPCS: 76536; 93880

== ENCOUNTER 2024-02-16 19:58 | Observation (INO) | payer MEDICARE, OTHER ==
[2024-02-16] MEDS: MORPHINE SULFATE 4 MG/ML SYRINGE IV STA (20:40)
[2024-02-16] MEDS: NITROGLYCERIN SL TABS 0.4 MG TAB SUBLINGUAL STA (20:51)
[2024-02-16] MEDS: ASPIRIN 81 MG PO STA (20:52)
[2024-02-16 21:15] LABS: Basophils % (A) 0 %; Eosinophils # (A) 0.2 k/uL (0-0.7); Eosinophils % (A) 4 %; HCT 40.6 % (39.0-53.0); HGB 13.7 gm/dL (13.0-17.5); Lymphocytes # (A) 1.3 k/uL (1.0-4.8); Lymphocytes % (A) 19 %; MCH 30.3 pg (25.0-35.0); MCHC 33.7 g/dL (31.0-37.0); Mean Platelet Volume 7.5; Monocytes # (A) 0.5 k/uL (0-1.0); Monocytes % (A) 8 %; Neutrophils # (A) 4.5 k/uL (1.3-7.7); Neutrophils % (A) 67 %; Platelet Count 212 k/uL (150-450); RBC 4.51 m/uL (4.30-5.90); RDW 15.1 % (11.5-15.5); WBC 6.7 k/uL (3.8-10.6)
[2024-02-16 21:22] LABS: Partial Thromboplastin Time 23.1 sec (22.0-30.0); Prothrombin Time 11.4 sec (10.0-12.5)
[2024-02-16 21:26] LABS: ALT 28 U/L (4-49); AST 27 U/L (17-59); African American GFR (CKD) >90 (>60 ml/min/1.73 sqM); Albumin 3.7 g/dL (3.5-5.0); Alkaline Phosphatase 75 U/L (38-126); Anion Gap 7 mmol/L; Blood Urea Nitrogen 12 mg/dL (9-20); Calcium 8.3 mg/dL (8.4-10.2); Carbon Dioxide 25 mmol/L (22-30); Chloride 108 mmol/L (98-107); Glucose 96 mg/dL (74-99); Non-African American GFR(CKD) >90 (>60 ml/min/1.73 sqM); Potassium 3.5 mmol/L (3.5-5.1); Sodium 140 mmol/L (137-145); Total Bilirubin 0.5 mg/dL (0.2-1.3); Total Protein 6.5 g/dL (6.3-8.2)
--- NOTE | 2024-02-16 22:59 | ED ---
Chest Pain HPI - General Chief Complaint: Chest Pain Stated Complaint: high BP chest pain Time Seen by Provider: 02/16/24 20:31 Source: patient Mode of arrival: ambulatory Limitations: no limitations - History of Present Illness Initial Comments: this patient is 68-year-old man who presents to have evaluation of substernal chest pain. The patient states that it had come on approximate 2 hours ago. He did not note exertional component. There was associated dyspnea. He checked his blood pressure at home and found that it was elevated as well. The patient called EMS and he did take aspirin and nitroglycerin. There was some relief of the symptoms following nitroglycerin. MD Complaint: chest pain Onset/Timin -: hour(s) Onset: during rest Pain Location: substernal Pain Radiation: none Severity: moderate Quality: heaviness Consistency: now resolved Improves With: nothing Worsens With: nothing Anginal Symptoms: dyspnea Treatments Prior to Arrival: aspirin, nitroglycerin - Related Data Home Medications Medication Instructions Recorded Confirmed Primidone [Mysoline] 150 mg PO BID 12/20/17 02/27/23 Memantine [Namenda] 10 mg PO BID 02/17/20 02/27/23 Pramipexole Di-HCl [Mirapex] 1.5 mg PO HS 02/17/20 02/27/23 Furosemide [Lasix] 40 mg PO BID 03/10/21 02/27/23 Pregabalin [Lyrica] 200 mg PO HS 03/10/21 02/27/23 QUEtiapine [SEROquel] 100 mg PO HS 03/10/21 02/27/23 Sertraline [Zoloft] 200 mg PO HS 08/18/21 02/27/23 Albuterol Sulfate [Albuterol 2 puff INHALATION RT-Q4H PRN 02/27/23 02/27/23 Sulfate Hfa] Budesonide/Formoterol Fumarate 1 puff INHALATION RT-BID 02/27/23 02/27/23 [Symbicort 80-4.5 Mcg Inhaler] HYDROcodone/APAP 5-325MG [[place] 1 tab PO TID PRN 02/27/23 02/27/23 5-325] Metoprolol Succinate (ER) [Toprol 50 mg PO DAILY 02/27/23 02/27/23 XL] Previous Rx's Medication Instructions Recorded Atorvastatin [Lipitor] 80 mg PO HS #30 tab 08/06/19 Nitroglycerin Sl Tabs [Nitrostat] 0.4 mg SUBLINGUAL Q5M PRN #30 tab 02/19/20 Aspirin 81 mg PO DAILY tab 11/25/22 Rivaroxaban [Xarelto] 20 mg PO W/SUPPER #30 tab 02/28/23 tiZANidine [Zanaflex] 2 mg PO TID #60 tab 02/28/23 Allergies Allergy/AdvReac Type Severity Reaction Status Date / Time No Known Allergies Allergy Verified 02/16/24 20:18 Review of Systems ROS Statement: Those systems with pertinent positive or pertinent negative responses have been documented in the HPI. ROS Other: All systems not noted in ROS Statement are negative. Constitutional: Denies: fever, chills, weakness Respiratory: Reports: as per HPI, dyspnea. Denies: cough, wheezes Cardiovascular: Reports: as per HPI, chest pain. Denies: palpitations, orthopnea, edema, syncope Gastrointestinal: Denies: abdominal pain, nausea, vomiting, diarrhea Genitourinary: Denies: dysuria, hematuria Musculoskeletal: Denies: back pain Skin: Denies: rash Neurological: Denies: headache, weakness EKG Findings - EKG Results: EKG: sinus rhythm (rate 71 bpm), normal ST/T - Blocks, [place], Hypertrophy, ST Abn: AV and intraventricular conduction: intraventricular conduction delay QRS axis and voltage: left axis deviation (-30 to -90) Past Medical History Past Medical History: Coronary Artery Disease (CAD), Chest Pain / Angina, Heart Failure, Dementia, GERD/Reflux, Hyperlipidemia, Hypertension, Myocardial Infarction (ID), Neurologic Disorder, Pneumonia, Prostate Disorder, Renal Disease, Skin Disorder, Sleep Apnea/CPAP/BIPAP Additional Past Medical History / Comment(s): early parkinson's with essential tremors, "lewy body dementia" R nephrolithiasis with surgery, EDITH with no CPAP, Irritable Bowel Syndrome diarrhea off and on, pneumonia/bronchitis, BPH, blood in stool-EGD/colonoscopy were normal, past hiatal hernia(sx), past falls., kidney failure, Last Myocardial Infarction Date:: 06/09/13 History of Any Multi-Drug Resistant Organisms: None Reported Past Surgical History: Back Surgery, Heart Catheterization, Heart Catheterization With Stent, Hernia Repair Additional Past Surgical History / Comment(s): 05/2013 stent to LAD and then a cardiac cath which showed stent patent, Recent R kidney stone removal, 03/19/15 Laparoscopic Elizabeth fundlaplication. SKIN GRAFTS CHEST & BACK FROM BASSETT AT 13 YRS OLD., COLONOSCOPY. EGD, L [facility] eye surgery as toddler. Past Anesthesia/Blood Transfusion Reactions: No Reported Reaction Additional Past Anesthesia/Blood Transfusion Reaction / Comment(s): Pt received blood in 1967 without reaction. Date of Last Stent Placement:: 12/2017 Past Psychological History: Bipolar, Depression Smoking Status: Never smoker Past Alcohol Use History: None Reported Past Drug Use History: None Reported - Past Family History Mother Family Medical History: Liver Disease Additional Family Medical History / Comment(s): Mother was an alcoholic. She of cirrhosis of the liver at age 60yrs. Father Family Medical History: Cancer, Coronary Artery Disease (CAD), Myocardial Infarction (ID) Additional Family Medical History / Comment(s): SKIN CA. Father of a ID at age 65 yrs. Brother(s) Family Medical History: Cancer Additional Family Medical History / Comment(s): LEUKEMIA, LYMPH NODE CA AND MULTIPLE MYELOMA. General Exam Limitations: no limitations General appearance: alert, in no apparent distress Head exam: Present: atraumatic, normocephalic Eye exam: Present: normal appearance. Absent: scleral icterus, conjunctival injection ENT exam: Present: normal oropharynx Neck exam: Present: normal inspection Respiratory exam: Present: normal lung sounds bilaterally. Absent: respiratory distress, wheezes, rales, rhonchi, stridor, accessory muscle use Cardiovascular Exam: Present: regular rate, normal rhythm, normal heart sounds. Absent: systolic murmur, diastolic murmur, rubs, gallop GI/Abdominal exam: Present: soft. Absent: distended, tenderness, guarding, rebound, rigid, mass, pulsatile mass Extremities exam: Present: normal inspection, normal capillary refill. Absent: pedal edema, calf tenderness Back exam: Present: normal inspection. Absent: CVA tenderness (R), CVA tenderness (L) Neurological exam: Present: alert Skin exam: Present: warm, dry, intact, normal color. Absent: rash Course Vital Signs 02/16/24 02/16/24 02/16/24 20:14 22:50 23:42 Temperature 98 F Pulse Rate 78 63 64 Respiratory 16 18 16 Rate Blood Pressure 153/98 157/113 145/89 O2 Sat by Pulse 94 L 95 95 Oximetry Chest Pain MDM - MDM The patient had chest x-ray which I interpreted as negative for acute infiltrate, pneumothorax, congestive heart failure Was pt. sent in by a medical professional or institution (, ANDREA, MULCHER OPERATOR, urgent care, hospital, or [facility]...) When possible be specific @ -[No] Did you speak to anyone other than the patient for history (EMS, parent, family, police, friend...)? What history was obtained from this source @ -[No] Did you review nursing and triage notes (agree or disagree)? Why? @ -[I reviewed and agree with nursing and triage notes] Were old charts reviewed (outside hosp., previous admission, EMS record, old EKG, old radiological studies, urgent care reports/EKG's, [facility] records)? Report findings @ -[Yes, old charts were reviewed] Differential Diagnosis (chest pain, altered mental status, abdominal pain women, abdominal pain men, vaginal bleeding, weakness, fever, dyspnea, syncope, headache, dizziness, GI bleed, back pain, seizure, CVA, palpatations, mental health, musculoskeletal)? @ -[Differential Chest Pain: Stable Angina, Unstable Angina, STEMI, NSTEMI Aortic Dissection, Pneumothorax, Musculoskeletal, Esophageal Spasm GERD, Cholecystitis, Pancreatitis, Zoster, this is not meant to be an all-inclusive list. EKG interpreted by me (3pts min.). @ -[I interpreted as above X-rays interpreted by me (1pt min.). @ -[Interpreted as above CT interpreted by me (1pt min.). @ -[None done] U/S interpreted by me (1pt. min.). @ -[None done] What testing was considered but not performed or refused? (CT, X-rays, U/S, labs)? Why? @ -[None] What meds were considered but not given or refused? Why? @ -[None] Did you discuss the management of the patient with other professionals (professionals i.e. ANDREA Alvarado, MULCHER OPERATOR, lab, RT, psych nurse, social services analyst, ed manager, teacher, business practices officer, rn field case manager)? Give summary @ -[Case discussed with the admitting physician and treatment recommendations incorporated Was smoking cessation discussed for >3mins.? @ -[No] Was critical care preformed (if so, how long)? @ -[No] Were there social determinants of health that impacted care today? How? (Homelessness, low income, unemployed, alcoholism, drug addiction, transportation, low edu. Level, literacy, decrease access to med. care, intermediate, rehab)? @ -[No] Was there de-escalation of care discussed even if they declined (Discuss DNR or withdrawal of care, Hospice)? DNR status @ -[No] What co-morbidities impacted this encounter? (DM, HTN, Smoking, COPD, CAD, Cancer, CVA, ARF, Chemo, Hep., AIDS, mental health diagnosis, sleep apnea, morbid obesity)? @ -[Hypertension, hyperlipidemia, coronary artery disease, COPD Was patient admitted / discharged? Hospital course, mention meds given and route, prescriptions, significant lab abnormalities, going to OR and other pertinent info. @ -[Patient is a 68-year-old man who presented with episode of chest pain that did have some relief with nitroglycerin. The patient will be admitted to have telemetry monitoring, serial cardiac enzymes, cardiology consultation Undiagnosed new problem with uncertain prognosis? @ -[No] Drug Therapy requiring intensive monitoring for toxicity (Heparin, Nitro, Insulin, Cardizem)? @ -[No] Were any procedures done? @ -[No] Diagnosis/symptom? @ -[Acute chest pain Acute on chronic hypertension Acute, or Chronic, or Acute on Chronic? @ -[As above Uncomplicated (without systemic symptoms) or Complicated (systemic symptoms)? @ -[Uncomplicated Side effects of treatment? @ -[No] Exacerbation, Progression, or Severe Exacerbation? @ -[No] Poses a threat to life or bodily function? How? (Chest pain, [place], ID, pneumonia, PE, COPD, DKA, ARF, appy, cholecystitis, CVA, Diverticulitis, Homicidal, Suicidal, threat to staff... and all critical care pts) @ -[There is possible threat to life, chest pain requires further evaluation therefore patient admitted Disposition Clinical Impression: Chest pain, Hypertension Disposition: ADMITTED IP TO THIS HOSP Condition: Fair Is patient prescribed a controlled substance at d/c from ED?: No
[2024-02-16] MEDS ORDERED: NITROGLYCERIN SL TABS 0.4 MG TAB SUBLINGUAL PRN (23:01)
[2024-02-16] MEDS ORDERED: HYDROcodone/APAP 5-325MG 1 EACH TAB PO PRN (23:08)
[2024-02-16] MEDS ORDERED: ALBUTEROL NEBULIZED 2.5 MG/3 ML INHALATION PRN (23:08)
[2024-02-16] MEDS: LABETALOL 5 MG/ML VIAL MDV IVP STA (23:33)
[2024-02-16] MEDS: SODIUM CHLORIDE 0.9% 1,000 ML IV SCH (23:35)
[2024-02-16] MEDS: ATORVASTATIN 80 MG TAB PO SCH (23:37)
[2024-02-16] MEDS: PREGABALIN 100 MG CAP PO SCH (23:38)
[2024-02-16] MEDS: QUEtiapine 100 MG TAB PO SCH (23:38)
[2024-02-16] MEDS: MEMANTINE 10 MG TAB PO SCH (23:38)
[2024-02-16] MEDS: SERTRALINE 100 MG TAB PO SCH (23:38)
[2024-02-16] MEDS: PRIMIDONE 50 MG TAB PO SCH (23:39)
[2024-02-16] MEDS: FUROSEMIDE 40 MG TAB PO SCH (23:39)
[2024-02-16 23:51] VITALS: RESP 16
[2024-02-17] MEDS: PRAMIPEXOLE 0.5 MG TAB PO SCH (01:38)
--- NOTE | 2024-02-17 02:03 | XR ---
EXAMINATION TYPE: XR chest 2V DATE OF EXAM: 02/16/2024 9:10 PM CLINICAL INDICATION:Male, 68 years old with history of Chest Pain; [facility] COMPARISON: None TECHNIQUE: XR chest 2V. Frontal and lateral views of the chest.. FINDINGS: Lines/Tubes/Devices: EKG leads overlie the chest. No indwelling lines are seen. Heart/mediastinum: Heart size upper normal. Atherosclerotic calcifications are seen in the aorta. Pulmonary vascularity: Not increased, Lungs/Pleura: COPD There is no evidence of pleural effusion, focal consolidation, or pneumothorax. Musculoskeletal: No acute osseous abnormality demonstrated in the limits of the exam. Other findings: None. IMPRESSION: No acute cardiopulmonary abnormality.
[2024-02-17] MEDS: ASPIRIN 81 MG PO SCH (08:30)
[2024-02-17] MEDS ORDERED: METOPROLOL SUCCINATE (ER) 50 MG TAB.ER.24H PO SCH (09:00)
[2024-02-17] MEDS ORDERED: ASPIRIN 325 MG TAB PO SCH (09:00)
[2024-02-17] MEDS: SYMBICORT 80-4.5 MCG INHALER INHALATION SCH (09:28)
--- NOTE | 2024-02-17 09:41 | P.HPIM ---
History of Present Illness H&P Date: 02/17/24 Chief Complaint: Chest pain 68-year-old patient of Dr. Gutierrez. Chronic stable medical conditions include cognitive impairment, GERD, hyperlipidemia, hypertension, early Parkinson's versus essential tremor, reported dementia, obstructive sleep apnea does not use CPAP, irritable bowel syndrome, BPH hiatal hernia. Has known coronary artery disease with stent. Patient initially developed upper chest pain for lasting for 3 to 4 seconds. Sharp in nature. Then developed a chest pressure with lasted maybe less than 10 minutes. Patient did feel a bit dizzy. No perspiration. No short of breath. Decided to come in. Also noticed blood pressure to be high above 220 systolic. Review of systems: GEN.: None EYES: None HEENT: None NECK: None RESPIRATORY: None CARDIOVASCULAR: As above GASTROINTESTINAL: None GENITOURINARY: None MUSCULOSKELETAL: None LYMPHATICS: None HEMATOLOGICAL: None PSYCHIATRY: None NEUROLOGICAL: None Past medical history to include: Coronary artery disease with stent, cognitive impairment, GERD, hyperlipidemia, hypertension, Parkinson disease, BPH, obstructive sleep apnea does not use CPAP, hiatal hernia Elizabeth fundoplication depression Social history: lives with no smoking. Stopped drinking alcohol in 2004. Prior to that used to drink every day On examination: VITAL SIGNS: 98.2, 50, 16, 1 one 5 x 70, 95% on 2 L GENERAL APPEARANCE: BMI 28.9, sitting up in a chair HEENT: Normal external appearance of nose and ear. Oral cavity normal EYES: Pupils equal. Conjunctiva normal. NECK: JVD not raised. Mass not palpable. RESPIRATORY: Respiratory effort . Lungs decreased breath sounds, CARDIOVASCULAR: First and second sounds normal. No edema. ABDOMEN: Soft. Liver and spleen not palpable. No tenderness. No mass palpable. PSYCHIATRY: Alert and oriented x3. Mood and affect normal. NEUROLOGICAL: Cranial nerves grossly intact per sensation grossly intact LYMPHATICS: No lymph nodes were palpable neck and axilla INVESTIGATIONS, reviewed in the clinical context: White count 6.7 hemoglobin 13.7 platelets 212 potassium 3.5 creatinine 0.75 Troponin I times three 0.013, 0.016, 0.015 EKG tracing personally reviewed by me-normal sinus rhythm Chest x-ray film personally reviewed by me-some fullness in the dalia Assessment and plan: -Anterior chest wall pain, in a patient known coronary artery disease Telemetry. Serial cardiac enzymes. Cardiology consulted. -Paroxysmal atrial fibrillation: Sinus rhythm Xarelto. 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 Home medication resumed. Cardiology consult. Past Medical History Past Medical History: Coronary Artery Disease (CAD), Chest Pain / Angina, Heart Failure, Dementia, GERD/Reflux, Hyperlipidemia, Hypertension, Myocardial Infarction ([place]), Neurologic Disorder, Pneumonia, Prostate Disorder, Renal Disease, Skin Disorder, Sleep Apnea/CPAP/BIPAP Additional Past Medical History / Comment(s): early parkinson's with essential tremors, "lewy body dementia" R nephrolithiasis with surgery, EDITH with no CPAP, Irritable Bowel Syndrome diarrhea off and on, pneumonia/bronchitis, BPH, blood in stool-EGD/colonoscopy were normal, past hiatal hernia(sx), past falls., kidney failure, Last Myocardial Infarction Date:: 06/09/13 History of Any Multi-Drug Resistant Organisms: None Reported Past Surgical History: Back Surgery, Heart Catheterization, Heart Catheterization With Stent, Hernia Repair Additional Past Surgical History / Comment(s): 05/2013 stent to LAD and then a cardiac cath which showed stent patent, Recent R kidney stone removal, 03/19/15 Laparoscopic Elizabeth fundlaplication. SKIN GRAFTS CHEST & BACK FROM BASSETT AT 13 YRS OLD., COLONOSCOPY. EGD, L [facility] eye surgery as toddler. Past Anesthesia/Blood Transfusion Reactions: No Reported Reaction Additional Past Anesthesia/Blood Transfusion Reaction / Comment(s): Pt received blood in 1967 without reaction. Date of Last Stent Placement:: 12/2017 Past Psychological History: Bipolar, Depression Smoking Status: Never smoker Past Alcohol Use History: None Reported Past Drug Use History: None Reported - Past Family History Mother Family Medical History: Liver Disease Additional Family Medical History / Comment(s): Mother was an alcoholic. She of cirrhosis of the liver at age 60yrs. Father Family Medical History: Cancer, Coronary Artery Disease (CAD), Myocardial Infarction ([place]) Additional Family Medical History / Comment(s): SKIN CA. Father of a [place] at age 65 yrs. Brother(s) Family Medical History: Cancer Additional Family Medical History / Comment(s): LEUKEMIA, LYMPH NODE CA AND MULTIPLE MYELOMA. Medications and Allergies Home Medications Medication Instructions Recorded Confirmed Type Primidone [Mysoline] 150 mg PO BID 12/20/17 02/27/23 History Atorvastatin [Lipitor] 80 mg PO HS #30 tab 08/06/19 02/27/23 Rx Memantine [Namenda] 10 mg PO BID 02/17/20 02/27/23 History Pramipexole Di-HCl [Mirapex] 1.5 mg PO HS 02/17/20 02/27/23 History Nitroglycerin Sl Tabs [Nitrostat] 0.4 mg SUBLINGUAL Q5M PRN #30 tab 02/19/20 02/27/23 Rx Furosemide [Lasix] 40 mg PO BID 03/10/21 02/27/23 History Pregabalin [Lyrica] 200 mg PO HS 03/10/21 02/27/23 History QUEtiapine [SEROquel] 100 mg PO HS 03/10/21 02/27/23 History Sertraline [Zoloft] 200 mg PO HS 08/18/21 02/27/23 History Aspirin 81 mg PO DAILY tab 11/25/22 02/27/23 Rx Albuterol Sulfate [Albuterol 2 puff INHALATION RT-Q4H PRN 02/27/23 02/27/23 History Sulfate Hfa] Budesonide/Formoterol Fumarate 1 puff INHALATION RT-BID 02/27/23 02/27/23 History [Symbicort 80-4.5 Mcg Inhaler] HYDROcodone/APAP 5-325MG [[place] 1 tab PO TID PRN 02/27/23 02/27/23 History 5-325] Metoprolol Succinate (ER) [Toprol 50 mg PO DAILY 02/27/23 02/27/23 History XL] Rivaroxaban [Xarelto] 20 mg PO W/SUPPER #30 tab 02/28/23 Rx tiZANidine [Zanaflex] 2 mg PO TID #60 tab 02/28/23 Rx Allergies Allergy/AdvReac Type Severity Reaction Status Date / Time No Known Allergies Allergy Verified 02/16/24 20:18 Physical Exam Vitals: Vital Signs Temp Pulse Pulse Resp BP BP Pulse Ox 02/17/24 02:00 98.1 F 76 16 145/84 96 02/16/24 23:42 64 16 145/89 95 02/16/24 22:50 63 18 157/113 95 02/16/24 20:14 98 F 78 16 153/98 94 L Intake and Output 02/16/24 02/17/24 02/17/24 22:59 06:59 14:59 Other: # Voids 1 Weight 102.058 kg 102.058 kg Results CBC & Chem 7: 02/16/24 21:00 02/16/24 21:00 Labs: Abnormal Lab Results - Last 24 Hours (Table) 02/16/24 Range/Units 21:00 Chloride 108 H (98-107) mmol/L Calcium 8.3 L (8.4-10.2) mg/dL
[2024-02-17 09:48] LABS: Chol/HDL Ratio 3.88 Ratio; LDL Cholesterol,Calculated 48.4 mg/dL (0.0-131.0)
[2024-02-17] MEDS ORDERED: tiZANidine 4 MG TAB PO PRN (11:03)
[2024-02-17] MEDS: tiZANidine 4 MG TAB PO SCH (11:24)
[2024-02-17] MEDS: IBUPROFEN 800 MG TAB PO SCH (11:36)
[2024-02-17] MEDS: METOPROLOL SUCCINATE (ER) 25 MG TAB.ER.24H PO SCH (11:36)
[2024-02-17] MEDS: PRIMIDONE 50 MG TAB PO SCH (15:19)
[2024-02-17] MEDS: CARBIDOPA-LEVODOPA 25-100 MG 1 EACH TAB PO SCH (15:19)
[2024-02-17] MEDS: hydrALAZINE HCL 25 MG TAB PO SCH (15:20)
[2024-02-17] MEDS: LOSARTAN 25 MG TAB PO SCH (17:31)
[2024-02-17] MEDS: amLODIPine 5 MG TAB PO SCH (17:31)
[2024-02-17] MEDS: RIVAROXABAN 20 MG TAB PO SCH (17:31)
--- NOTE | 2024-02-17 17:35 | P.CRDCN ---
History of Present Illness Consult date: 02/17/24 History of present illness: HISTORY OF PRESENTING ILLNESS Patient is a 68-year-old male with past medical history of A-fib, diagnosed in 2022, paroxysmal, CAD s/p PCI known to Dr. Menendez. He also has history of hypertension, intentional resting tremors on higher doses of primidone, resting sleep restless leg syndrome, Parkinson disease on Sinemet, dementia on Namenda. He presented to the hospital because of elevated blood pressure that he has been noticing for last 2 to 3 days. He reports that his systolic blood pressure has been in 200s. He also reported on and off substernal chest pressure-like symptoms when his blood pressure was high. In the ER he received 1 dose of labetalol and since then his blood pressure has been consistently around 120s to 130s mmHg systolic. Since then he has reported that his chest pain has not reoccurred. He denies any palpitations lightheadedness or dizziness. He denies any changes in his vision, focal weakness in bilateral upper and lower extremities or any changes in vision hearing or speech. ECG showed sinus bradycardia, heart rate 54 bpm, left axis deviation and possible LVH by voltage criteria. He had nonspecific ST changes in inferolateral leads with mild T wave inversions Labs shows hemoglobin 13.7, creatinine 0.7, troponin x 3 negative, LDL 48, HDL 26, TG 133 REVIEW OF SYSTEMS 14 point review of system is negative except what is mentioned above in HPI. PHYSICAL EXAMINATION Vital signs reviewed. Head: Normocephalic. Eyes: Sclerae nonicteric. Neck: Brisk carotid upstroke, no jugular venous distention. Lungs: Clear to auscultation. Heart: Regular rate and rhythm, S1-S2, no S3, no murmur or rub. Abdomen: Soft nontender, positive bowel sounds. Extremities: No edema, intact distal pulses. Neuro: Alert, oritented, no focal deficits. Detailed neuro exam was not performed. ASSESSMENT Hypertensive urgency, currently resolved Paroxysmal atrial fibrillation,, currently in sinus bradycardia Atypical chest pain CAD s/p three-vessel PCI with 5 MANJIT as per patient Intentional tremors Resting tremors with concerns of parkinsonism Restless leg syndrome PLAN Not of acute coronary syndrome. Patient report he had outpatient stress test with Dr. Menendez 6 months ago which was reported to be negative. With the clinical presentation and recent negative stress test I do not think we need to do inpatient stress test at this time. For some reason patient is on hydralazine. Patient is not sure if he missed his medication or delayed taking his hydralazine which could be one of the reasons his blood pressure was significantly elevated. I will discontinue his hydralazine. I will start him on amlodipine 5 mg, losartan 25 mg daily. Monitor his blood pressure overnight Continue metoprolol succinate 25 mg daily for his prior history of A-fib. His resting heart rate is around 50s. With activity his heart rate goes into 60s to 70s. Continue home medications, aspirin, Lipitor. He is on Lasix 40 mg once a day only. On discharge please discharge him on once a day not twice a day. Obtain limited echocardiogram If blood pressure normal tomorrow, discharged home Recommend outpatient follow-up with Dr. Menendez, consider Holter monitor to see chronotropic competence and heart rate response to metoprolol, review stress test results, Amilcar Anderson MD, FACC, RPVI Thank you for allowing [facility] to participate in this patient's care. Feel free to reach out in case of any followup questions. Past Medical History Past Medical History: Coronary Artery Disease (CAD), Chest Pain / Angina, Heart Failure, Dementia, GERD/Reflux, Hyperlipidemia, Hypertension, Myocardial Infarction (DE), Neurologic Disorder, Pneumonia, Prostate Disorder, Renal Disease, Skin Disorder, Sleep Apnea/CPAP/BIPAP Additional Past Medical History / Comment(s): early parkinson's with essential tremors, "lewy body dementia" R nephrolithiasis with surgery, EDITH with no CPAP, Irritable Bowel Syndrome diarrhea off and on, pneumonia/bronchitis, BPH, blood in stool-EGD/colonoscopy were normal, past hiatal hernia(sx), past falls., kidney failure, Last Myocardial Infarction Date:: 06/09/13 History of Any Multi-Drug Resistant Organisms: None Reported Past Surgical History: Back Surgery, Heart Catheterization, Heart Catheterization With Stent, Hernia Repair Additional Past Surgical History / Comment(s): 05/2013 stent to LAD and then a cardiac cath which showed stent patent, Recent R kidney stone removal, 03/19/15 Laparoscopic Elizabeth fundlaplication. SKIN GRAFTS CHEST & BACK FROM BASSETT AT 13 YRS OLD., COLONOSCOPY. EGD, L lazy eye surgery as toddler. Past Anesthesia/Blood Transfusion Reactions: No Reported Reaction Additional Past Anesthesia/Blood Transfusion Reaction / Comment(s): Pt received blood in 1967 without reaction. Date of Last Stent Placement:: 12/2017 Past Psychological History: Bipolar, Depression Smoking Status: Never smoker Past Alcohol Use History: None Reported Past Drug Use History: None Reported - Past Family History Mother Family Medical History: Liver Disease Additional Family Medical History / Comment(s): Mother was an alcoholic. She of cirrhosis of the liver at age 60yrs. Father Family Medical History: Cancer, Coronary Artery Disease (CAD), Myocardial Infarction (DE) Additional Family Medical History / Comment(s): SKIN CA. Father of a DE at age 65 yrs. Brother(s) Family Medical History: Cancer Additional Family Medical History / Comment(s): LEUKEMIA, LYMPH NODE CA AND MULTIPLE MYELOMA. Medications and Allergies Home Medications Medication Instructions Recorded Confirmed Type Primidone [Mysoline] 150 mg PO BID@0900,2100 12/20/17 02/17/24 History Atorvastatin [Lipitor] 80 mg PO HS #30 tab 08/06/19 02/17/24 Rx Memantine [Namenda] 10 mg PO BID 02/17/20 02/17/24 History Pramipexole Di-HCl [Mirapex] 1.5 mg PO HS 02/17/20 02/17/24 History Furosemide [Lasix] 40 mg PO BID 03/10/21 02/17/24 History Pregabalin [Lyrica] 100 mg PO BID 03/10/21 02/17/24 History QUEtiapine [SEROquel] 100 mg PO HS 03/10/21 02/17/24 History Sertraline [Zoloft] 200 mg PO HS 08/18/21 02/17/24 History Aspirin 81 mg PO DAILY tab 11/25/22 02/17/24 Rx HYDROcodone/APAP 5-325MG [Lewis 1 tab PO TID PRN 02/27/23 02/17/24 History 5-325] Rivaroxaban [Xarelto] 20 mg PO W/SUPPER #30 tab 02/28/23 02/17/24 Rx Carbidopa-Levodopa 25-100 mg 1 tab PO TID 02/17/24 02/17/24 History [Sinemet 25-100] Ibuprofen [Motrin] 800 mg PO TID 02/17/24 02/17/24 History Metoprolol Succinate (ER) [Toprol 25 mg PO DAILY 02/17/24 02/17/24 History Xl] Primidone [Mysoline] 100 mg PO DAILY@1500 02/17/24 02/17/24 History hydrALAZINE HCL [Apresoline] 25 mg PO TID 02/17/24 02/17/24 History tiZANidine [Zanaflex] 2 mg PO BID PRN 02/17/24 02/17/24 History Allergies Allergy/AdvReac Type Severity Reaction Status Date / Time No Known Allergies Allergy Verified 02/17/24 10:04 Physical Exam Vitals: Vital Signs Temp Pulse Pulse Resp BP BP Pulse Ox 02/17/24 14:48 97.7 F 56 L 16 114/72 92 L 02/17/24 13:31 61 16 02/17/24 11:34 61 108/58 02/17/24 08:00 50 L 16 02/17/24 07:00 98.2 F 50 L 16 115/70 95 02/17/24 02:00 98.1 F 76 16 145/84 96 02/16/24 23:42 64 16 145/89 95 02/16/24 22:50 63 18 157/113 95 02/16/24 20:14 98 F 78 16 153/98 94 L Intake and Output 02/17/24 02/17/24 02/17/24 06:59 14:59 22:59 Output Total 575 Balance -575 Output: Urine 575 Straight 575 Other: Voiding Method Toilet # Voids 1 Weight 102.058 kg Results 02/16/24 21:00 02/16/24 21:00 Cardiac Enzymes 02/16/24 02/16/24 02/16/24 Range/Units 21:00 21:00 23:43 AST 27 (17-59) U/L Troponin I 0.013 0.016 (0.000-0.034) ng/mL 02/17/24 Range/Units 04:40 AST (17-59) U/L Troponin I 0.015 (0.000-0.034) ng/mL Coagulation 02/16/24 Range/Units 21:00 PT 11.4 (10.0-12.5) sec APTT 23.1 (22.0-30.0) sec Lipids 02/17/24 Range/Units 04:40 Triglycerides 133.00 (0.00-149.00) mg/dL Cholesterol 101.00 (0.00-200.00) mg/dL HDL Cholesterol 26.00 L (40.00-60.00) mg/dL Cholesterol/HDL Ratio 3.88 Ratio CBC 02/16/24 Range/Units 21:00 WBC 6.7 (3.8-10.6) k/uL RBC 4.51 (4.30-5.90) m/uL Hgb 13.7 (13.0-17.5) gm/dL Hct 40.6 (39.0-53.0) % Plt Count 212 (150-450) k/uL Comprehensive Metabolic Panel 02/16/24 Range/Units 21:00 Sodium 140 (137-145) mmol/L Potassium 3.5 (3.5-5.1) mmol/L Chloride 108 H (98-107) mmol/L Carbon Dioxide 25 (22-30) mmol/L BUN 12 (9-20) mg/dL Creatinine 0.75 (0.66-1.25) mg/dL Glucose 96 (74-99) mg/dL Calcium 8.3 L (8.4-10.2) mg/dL AST 27 (17-59) U/L ALT 28 (4-49) U/L Alkaline Phosphatase 75 (38-126) U/L Total Protein 6.5 (6.3-8.2) g/dL Albumin 3.7 (3.5-5.0) g/dL Current Medications Generic Name Dose Route Start Last Admin Trade Name Freq PRN Reason Stop Dose Admin Hydrocodone Bitart/Acetaminophen 1 each 02/16/24 23:08 Hydrocodone/Apap 5-325mg 1 Each Tab PO TID PRN Pain Albuterol Sulfate 2.5 mg 02/16/24 23:08 Albuterol Nebulized 2.5 Mg/3 Ml INHALATION RT-Q4H PRN Shortness Of Breath Amlodipine Besylate 5 mg 02/17/24 17:30 02/17/24 17:31 Amlodipine 5 Mg Tab PO 5 mg DAILY DELORES Administration Aspirin 81 mg 02/17/24 09:00 02/17/24 08:30 Aspirin 81 Mg PO 81 mg DAILY DELORES Administration Atorvastatin Calcium 80 mg 02/16/24 23:30 02/16/24 23:37 Atorvastatin 80 Mg Tab PO 80 mg HS DELORES Administration Budesonide/Formoterol Fumarate 1 puff 02/17/24 08:00 02/17/24 09:28 Symbicort 80-4.5 Mcg Inhaler INHALATION 1 puff RT-BID DELORES Administration Carbidopa/Levodopa 1 each 02/17/24 16:00 02/17/24 15:19 Carbidopa-Levodopa 25-100 Mg 1 Each Tab PO 1 each TID DELORES Administration Furosemide 40 mg 02/18/24 09:00 Furosemide 40 Mg Tab PO DAILY [facility] Sodium Chloride 1,000 mls @ 20 mls/hr 02/16/24 23:15 02/16/24 23:35 Saline 0.9% IV 20 mls/hr .Q24H DELORES Administration Ibuprofen 800 mg 02/17/24 12:30 02/17/24 17:30 Ibuprofen 800 Mg Tab PO 800 mg TID-W/MEALS DELORES Administration Losartan Potassium 25 mg 02/17/24 17:30 02/17/24 17:31 Losartan 25 Mg Tab PO 25 mg DAILY DELORES Administration Memantine 10 mg 02/16/24 23:30 02/17/24 08:29 Memantine 10 Mg Tab PO 10 mg BID DELORES Administration Metoprolol Succinate 25 mg 02/17/24 11:15 02/17/24 11:36 Metoprolol Succinate (Er) 25 Mg Tab.Er.24h PO 25 mg DAILY DELORES Administration Nitroglycerin 0.4 mg 02/16/24 23:01 Nitroglycerin Sl Tabs 0.4 Mg Tab SUBLINGUAL Q5M PRN Chest Pain Pramipexole Dihydrochloride 1.5 mg 02/16/24 23:30 02/17/24 01:38 Pramipexole 0.5 Mg Tab PO Not Given HS DELORES Pregabalin 200 mg 02/16/24 23:30 02/16/24 23:38 Pregabalin 100 Mg Cap PO 200 mg HS DELORES Administration Primidone 150 mg 02/16/24 23:30 02/17/24 08:29 Primidone 50 Mg Tab PO 150 mg BID DELORES Administration Primidone 100 mg 02/17/24 15:00 02/17/24 15:19 Primidone 50 Mg Tab PO 100 mg DAILY@1500 DELORES Administration Quetiapine Fumarate 100 mg 02/16/24 23:30 02/16/24 23:38 Quetiapine 100 Mg Tab PO 100 mg HS DELORES Administration Rivaroxaban 20 mg 02/17/24 17:30 02/17/24 17:31 Rivaroxaban 20 Mg Tab PO 20 mg W/SUPPER DELORES Administration Protocol Sertraline HCl 200 mg 02/16/24 23:30 02/16/24 23:38 Sertraline 100 Mg Tab PO 200 mg HS DELORES Administration Tizanidine HCl 2 mg 02/17/24 11:03 Tizanidine 4 Mg Tab PO BID PRN Muscle Spasm Intake and Output 02/17/24 02/17/24 02/17/24 06:59 14:59 22:59 Output Total 575 Balance -575 Output: Urine 575 Straight 575 Other: Voiding Method Toilet # Voids 1 Weight 102.058 kg 02/16/24 21:00 02/16/24 21:00
[2024-02-18 08:22] VITALS: BP 116/70; PULSE 56; TEMP 97.4
[2024-02-18] MEDS: FUROSEMIDE 40 MG TAB PO SCH (09:17)
--- NOTE | 2024-02-18 11:17 | P.PN ---
Subjective Progress Note Date: 02/18/24 Progress note February 18, 2024 Patient is doing well from cardiovascular standpoint. Blood pressure is much better controlled, systolic blood pressure around 110 mmHg, resting heart rate around 60 mmHg. He is tolerating addition of amlodipine and losartan 25 mg. HISTORY OF PRESENTING ILLNESS Patient is a 68-year-old male with past medical history of A-fib, diagnosed in 2022, paroxysmal, CAD s/p PCI known to Dr. Menendez. He also has history of hypertension, intentional resting tremors on higher doses of primidone, resting sleep restless leg syndrome, Parkinson disease on Sinemet, dementia on Namenda. He presented to the hospital because of elevated blood pressure that he has been noticing for last 2 to 3 days. He reports that his systolic blood pressure has been in 200s. He also reported on and off substernal chest pressure-like symptoms when his blood pressure was high. In the ER he received 1 dose of labetalol and since then his blood pressure has been consistently around 120s to 130s mmHg systolic. Since then he has reported that his chest pain has not reoccurred. He denies any palpitations lightheadedness or dizziness. He denies any changes in his vision, focal weakness in bilateral upper and lower extremities or any changes in vision hearing or speech. ECG showed sinus bradycardia, heart rate 54 bpm, left axis deviation and possible LVH by voltage criteria. He had nonspecific ST changes in inferolateral leads with mild T wave inversions Labs shows hemoglobin 13.7, creatinine 0.7, troponin x 3 negative, LDL 48, HDL 26, TG 133 REVIEW OF SYSTEMS 14 point review of system is negative except what is mentioned above in HPI. PHYSICAL EXAMINATION Vital signs reviewed. Head: Normocephalic. Eyes: Sclerae nonicteric. Neck: Brisk carotid upstroke, no jugular venous distention. Lungs: Clear to auscultation. Heart: Regular rate and rhythm, S1-S2, no S3, no murmur or rub. Abdomen: Soft nontender, positive bowel sounds. Extremities: No edema, intact distal pulses. Neuro: Alert, oritented, no focal deficits. Detailed neuro exam was not performed. ASSESSMENT Hypertensive urgency, currently resolved Paroxysmal atrial fibrillation,, currently in sinus bradycardia Atypical chest pain CAD s/p three-vessel PCI with 5 MANJIT as per patient Intentional tremors Resting tremors with concerns of parkinsonism Restless leg syndrome PLAN Not of acute coronary syndrome. Patient report he had outpatient stress test with Dr. Menendez 6 months ago which was reported to be negative. With the clinical presentation and recent negative stress test I do not think we need to do inpatient stress test at this time. For some reason patient is on hydralazine. Patient is not sure if he missed his medication or delayed taking his hydralazine which could be one of the reasons his blood pressure was significantly elevated. I will discontinue his hydralazine. I will start him on amlodipine 5 mg, losartan 25 mg daily. Monitor his blood pressure overnight Continue metoprolol succinate 25 mg daily for his prior history of A-fib. His resting heart rate is around 50s. With activity his heart rate goes into 60s to 70s. Continue home medications, aspirin, Lipitor. He is on Lasix 40 mg once a day only. On discharge please discharge him on once a day not twice a day. Obtain limited echocardiogram Patient's hemodynamics and blood pressure are within normal ranges on current regimen. Okay to be discharged from cardiovascular standpoint. Do not resume hydralazine at discharge. Start the medications I started him on. Recommend obtaining a BMP 1 week from today to monitor renal function and potassium after addition of losartan. Recommend outpatient follow-up with Dr. Menendez, consider Holter monitor to see chronotropic competence and heart rate response to metoprolol, review stress test results, Objective - Vital Signs Vital signs: Vital Signs Temp 97.4 F L 02/18/24 07:00 Pulse 56 L 02/18/24 08:00 Resp 16 02/18/24 08:00 BP 116/70 02/18/24 07:00 Pulse Ox 92 L 02/18/24 07:00 FiO2 Intake & Output 02/17/24 02/18/24 02/18/24 18:59 06:59 18:59 Intake Total 118 598 Output Total 850 300 Balance -732 298 Intake: Oral 118 598 Output: Urine 850 300 Straight 575 Other: Voiding Method Toilet Toilet Urinal Urinal # Voids 0 - Labs CBC & Chem 7: 02/16/24 21:00 02/16/24 21:00
--- NOTE | 2024-02-18 19:22 | P.DS ---
Providers Date of admission: 02/16/24 23:01 Expected date of discharge: 02/18/24 Attending physician: Pierce Chakraborty Consults: 02/16/24 23:01 Consult Physician Routine Consulting Provider: Amilcar Anderson Consult Reason/Comments: chest pain Do you want consulting provider notified?: Yes Primary care physician: [facility] Course: Chief Complaint: Chest pain 68-year-old patient of Dr. Gutierrez. Chronic stable medical conditions include cognitive impairment, GERD, hyperlipidemia, hypertension, early Parkinson's versus essential tremor, reported dementia, obstructive sleep apnea does not use CPAP, irritable bowel syndrome, BPH hiatal hernia. Has known coronary artery disease with stent. Patient initially developed upper chest pain for lasting for 3 to 4 seconds. Sharp in nature. Then developed a chest pressure with lasted maybe less than 10 minutes. Patient did feel a bit dizzy. No perspiration. No short of breath. Decided to come in. Also noticed blood pressure to be high above 220 systolic. February 17: Doing well. No further chest pain. Cleared by cardiology. For blood pressure Cozaar and amlodipine was added. Hydralazine was discontinued. Patient will follow-up with Dr. Hernandez. Past medical history to include: Coronary artery disease with stent, cognitive impairment, GERD, hyperlipidemia, hypertension, Parkinson disease, BPH, obstructive sleep apnea does not use CPAP, hiatal hernia Elizabeth fundoplication depression Social history: lives with no smoking. Stopped drinking alcohol in 2004. Prior to that used to drink every day On examination: VITAL SIGNS: 97.4, 56, 16, 1 one 6 x 70, 92% room air GENERAL APPEARANCE: Comfortable HEENT: Normal external appearance of nose and ear. Oral cavity normal EYES: Pupils equal. Conjunctiva normal. NECK: JVD not raised. Mass not palpable. RESPIRATORY: Respiratory effort . Lungs decreased breath sounds, CARDIOVASCULAR: First and second sounds normal. No edema. ABDOMEN: Soft. Liver and spleen not palpable. No tenderness. No mass palpable. PSYCHIATRY: Alert and oriented x3. Mood and affect normal. INVESTIGATIONS, reviewed in the clinical context: LDL 48 White count 6.7 hemoglobin 13.7 platelets 212 potassium 3.5 creatinine 0.75 Troponin I times three 0.013, 0.016, 0.015 EKG tracing personally reviewed by me-normal sinus rhythm Chest x-ray film personally reviewed by me-some fullness in the dalia Assessment and plan: -Anterior chest wall pain, in a patient known coronary artery disease: Could be musculoskeletal Seen by cardiology. No further intervention -Paroxysmal atrial fibrillation: Sinus rhythm Xarelto. 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 Namenda -Irritable bowel syndrome -Bipolar depression Zoloft, Seroquel Disposition: Home Past Medical History Past Medical History: Coronary Artery Disease (CAD), Chest Pain / Angina, Heart Failure, Dementia, GERD/Reflux, Hyperlipidemia, Hypertension, Myocardial Inf arction (MS), Neurologic Disorder, Pneumonia, Prostate Disorder, Renal Disease, Skin Disorder, Sleep Apnea/CPAP/BIPAP Additional Past Medical History / Comment(s): early parkinson's with essential tremors, "lewy body dementia" R nephrolithiasis with surgery, EDITH with no CPAP, Irritable Bowel Syndrome diarrhea off and on, pneumonia/bronchitis, BPH, blood in stool-EGD/colonoscopy were normal, past hiatal hernia(sx), past falls., kidney failure, Last Myocardial Infarction Date:: 06/09/13 History of Any Multi-Drug Resistant Organisms: None Reported Past Surgical History: Back Surgery, Heart Catheterization, Heart Catheterization With Stent, Hernia Repair Additional Past Surgical History / Comment(s): 05/2013 stent to LAD and then a cardiac cath which showed stent patent, Recent R kidney stone removal, 03/19/15 Laparoscopic Elizabeth fundlaplication. SKIN GRAFTS CHEST & BACK FROM BASSETT AT 13 YRS OLD., COLONOSCOPY. EGD, L lazy eye surgery as toddler. Past Anesthesia/Blood Transfusion Reactions: No Reported Reaction Additional Past Anesthesia/Blood Transfusion Reaction / Comment(s): Pt received blood in 1967 without reaction. Date of Last Stent Placement:: 12/2017 Past Psychological History: Bipolar, Depression Smoking Status: Never smoker Past Alcohol Use History: None Reported Past Drug Use History: None Reported Plan - Discharge Summary New Discharge Prescriptions: New Losartan [Cozaar] 25 mg PO HS #30 tab amLODIPine [Norvasc] 5 mg PO HS #30 tab Continue Primidone [Mysoline] 150 mg PO BID@0900,2100 Atorvastatin [Lipitor] 80 mg PO HS #30 tab Memantine [Namenda] 10 mg PO BID Pramipexole Di-HCl [Mirapex] 1.5 mg PO HS Pregabalin [Lyrica] 100 mg PO BID QUEtiapine [SEROquel] 100 mg PO HS Sertraline [Zoloft] 200 mg PO HS Rivaroxaban [Xarelto] 20 mg PO W/SUPPER #30 tab tiZANidine [Zanaflex] 2 mg PO BID PRN PRN Reason: Muscle Spasm Primidone [Mysoline] 100 mg PO DAILY@1500 Carbidopa-Levodopa 25-100 mg [Sinemet 25-100 mg] 1 tab PO TID Aspirin 81 mg PO DAILY tab HYDROcodone/APAP 5-325MG [Baker 5-325] 1 tab PO TID PRN PRN Reason: Pain Metoprolol Succinate (ER) [Toprol XL] 25 mg PO DAILY Ibuprofen [Motrin] 800 mg PO TID Changed Furosemide [Lasix] 40 mg PO DAILY #0 Discontinued hydrALAZINE HCL [Apresoline] 25 mg PO TID Discharge Medication List Primidone [Mysoline] 150 mg PO BID@0900,2100 12/20/17 [History] Atorvastatin [Lipitor] 80 mg PO HS #30 tab 08/06/19 [Rx] Memantine [Namenda] 10 mg PO BID 02/17/20 [History] Pramipexole Di-HCl [Mirapex] 1.5 mg PO HS 02/17/20 [History] Pregabalin [Lyrica] 100 mg PO BID 03/10/21 [History] QUEtiapine [SEROquel] 100 mg PO HS 03/10/21 [History] Sertraline [Zoloft] 200 mg PO HS 08/18/21 [History] Aspirin 81 mg PO DAILY tab 11/25/22 [Rx] HYDROcodone/APAP 5-325MG [Baker 5-325] 1 tab PO TID PRN 02/27/23 [History] Rivaroxaban [Xarelto] 20 mg PO W/SUPPER #30 tab 02/28/23 [Rx] Carbidopa-Levodopa 25-100 mg [Sinemet 25-100 mg] 1 tab PO TID 02/17/24 [History] Ibuprofen [Motrin] 800 mg PO TID 02/17/24 [History] Metoprolol Succinate (ER) [Toprol XL] 25 mg PO DAILY 02/17/24 [History] Primidone [Mysoline] 100 mg PO DAILY@1500 02/17/24 [History] tiZANidine [Zanaflex] 2 mg PO BID PRN 02/17/24 [History] Furosemide [Lasix] 40 mg PO DAILY #0 02/18/24 [Rx] Losartan [Cozaar] 25 mg PO HS #30 tab 02/18/24 [Rx] amLODIPine [Norvasc] 5 mg PO HS #30 tab 02/18/24 [Rx] Follow up Appointment(s)/Referral(s): Román Gutierrez DO [Primary Care Provider] - 1-2 days Deshawn Hernandez MD [STAFF PHYSICIAN] - 2 Weeks Patient Instructions/Handouts: Chest Pain (ED) Discharge Disposition: HOME SELF-CARE
== END 2024-02-18 12:12 | disposition home or self-care (01) ==
LOC: EC 19:58 → 6NMEDSUR 23:01
PROVIDERS: ADMIT Hospitalist; ATTEND Hospitalist
DX: R07.89 Other chest pain (principal); I16.0 Hypertensive urgency; I48.0 Paroxysmal atrial fibrillation; I25.10 Atherosclerotic heart disease of native coronary artery without angina pectoris; I10 Essential (primary) hypertension; E78.5 Hyperlipidemia, unspecified; J44.9 Chronic obstructive pulmonary disease, unspecified; F31.9 Bipolar disorder, unspecified; K21.9 Gastro-esophageal reflux disease without esophagitis; N40.0 Benign prostatic hyperplasia without lower urinary tract symptoms; G47.33 Obstructive sleep apnea (adult) (pediatric); G20.A1 Parkinson's disease without dyskinesia, without mention of fluctuations; K58.0 Irritable bowel syndrome with diarrhea; G31.83 Neurocognitive disorder with Lewy bodies; F02.80 Dementia in other diseases classified elsewhere, unspecified severity, without behavioral disturbance, psychotic disturbance, mood disturbance, and anxiety; G25.81 Restless legs syndrome; R00.1 Bradycardia, unspecified; K44.9 Diaphragmatic hernia without obstruction or gangrene; Z79.51 Long term (current) use of inhaled steroids; Z79.82 Long term (current) use of aspirin; Z79.01 Long term (current) use of anticoagulants; Z79.899 Other long term (current) drug therapy; Z95.5 Presence of coronary angioplasty implant and graft
CPT/HCPCS: 96374; 99285; 36415; 94640 ×3; 93005; 80061; 80053; 83735; 84484 ×2; 85025; 85610; 85730; 71046; G0378 ×3; J1920

== ENCOUNTER 2024-05-18 17:55 | Inpatient (IN) | payer MEDICARE ==
--- NOTE | 2024-05-18 18:50 | ED ---
Male Urogenital HPI - General Chief complaint: Urogenital Stated complaint: fever, vomitting, hypertension Time Seen by Provider: 05/18/24 18:25 Source: patient Mode of arrival: ambulatory Limitations: no limitations - History of Present Illness Initial comments: 69-year-old male present with chief complaint of fever and urinary retention. Patient recently had neck surgery at an outside facility. States that after the surgery he was unable to empty his bladder and had a Pulido placed. 2 days ago he had his follow-up with his surgeon, they state that the appointment went well and then they were sent across the street to the urologist office for removal of the Pulido catheter. He has had difficult urination ever since and today is unable to urinate. He states that he was feeling much worse today, he had a fever at home with nausea and vomiting as well. He has generalized bodyaches and right-sided flank pain. - Related Data Home Medications Medication Instructions Recorded Confirmed Primidone [Mysoline] 100 mg PO DAILY 12/20/17 05/19/24 Memantine [Namenda] 10 mg PO BID 02/17/20 05/19/24 Pramipexole Di-HCl [Mirapex] 1.5 mg PO HS 02/17/20 05/19/24 Pregabalin [Lyrica] 100 mg PO BID 03/10/21 05/19/24 Sertraline [Zoloft] 200 mg PO DAILY 08/18/21 05/19/24 HYDROcodone/APAP 5-325MG [[place] 1 tab PO Q6H PRN 02/27/23 05/19/24 5-325] Ibuprofen [Motrin] 800 mg PO TID PRN 02/17/24 05/19/24 Metoprolol Succinate (ER) [Toprol 25 mg PO DAILY 02/17/24 05/19/24 XL] Primidone [Mysoline] 150 mg PO HS 02/17/24 05/19/24 Tamsulosin [Flomax] 0.4 mg PO DAILY 05/19/24 05/19/24 hydrALAZINE HCL [Apresoline] 25 mg PO TID 05/19/24 05/19/24 Previous Rx's Medication Instructions Recorded Atorvastatin [Lipitor] 80 mg PO HS #30 tab 08/06/19 Aspirin 81 mg PO DAILY tab 11/25/22 Furosemide [Lasix] 40 mg PO DAILY #0 02/18/24 Allergies Allergy/AdvReac Type Severity Reaction Status Date / Time No Known Allergies Allergy Verified 05/19/24 13:05 Review of Systems ROS Statement: Those systems with pertinent positive or pertinent negative responses have been documented in the HPI. ROS Other: All systems not noted in ROS Statement are negative. Past Medical History Past Medical History: Coronary Artery Disease (CAD), Chest Pain / Angina, Heart Failure, Dementia, GERD/Reflux, Hyperlipidemia, Hypertension, Myocardial Infarction ([place]), Neurologic Disorder, Pneumonia, Prostate Disorder, Renal Disease, Skin Disorder, Sleep Apnea/CPAP/BIPAP Additional Past Medical History / Comment(s): early parkinson's with essential tremors, "lewy body dementia" R nephrolithiasis with surgery, EDITH with no CPAP, Irritable Bowel Syndrome diarrhea off and on, pneumonia/bronchitis, BPH, blood in stool-EGD/colonoscopy were normal, past hiatal hernia(sx), past falls., kidney failure, Last Myocardial Infarction Date:: 06/09/13 History of Any Multi-Drug Resistant Organisms: None Reported Past Surgical History: Back Surgery, Heart Catheterization, Heart Catheterization With Stent, Hernia Repair Additional Past Surgical History / Comment(s): 05/2013 stent to LAD and then a cardiac cath which showed stent patent, Recent R kidney stone removal, 03/19/15 Laparoscopic Elizabeth fundlaplication. SKIN GRAFTS CHEST & BACK FROM BASSETT AT 13 YRS OLD., COLONOSCOPY. EGD, L lazy eye surgery as toddler. c3 c4 fusion, c4 c5 fusion. Past Anesthesia/Blood Transfusion Reactions: No Reported Reaction Additional Past Anesthesia/Blood Transfusion Reaction / Comment(s): Pt received blood in 1967 without reaction. Date of Last Stent Placement:: 12/2017 Past Psychological History: Bipolar, Depression Smoking Status: Never smoker Past Alcohol Use History: None Reported Past Drug Use History: None Reported - Past Family History Mother Family Medical History: Liver Disease Additional Family Medical History / Comment(s): Mother was an alcoholic. She of cirrhosis of the liver at age 60yrs. Father Family Medical History: Cancer, Coronary Artery Disease (CAD), Myocardial Infarction ([place]) Additional Family Medical History / Comment(s): SKIN CA. Father of a [place] at age 65 yrs. Brother(s) Family Medical History: Cancer Additional Family Medical History / Comment(s): LEUKEMIA, LYMPH NODE CA AND MULTIPLE MYELOMA. General Exam Limitations: no limitations General appearance: alert, in no apparent distress Head exam: Present: atraumatic, normocephalic Eye exam: Present: normal appearance, EOMI Neck exam: Present: normal inspection. Absent: meningismus Respiratory exam: Present: normal lung sounds bilaterally. Absent: respiratory distress, wheezes, rales, rhonchi, stridor Cardiovascular Exam: Present: normal rhythm, tachycardia, normal heart sounds. Absent: systolic murmur, diastolic murmur, rubs, gallop, clicks Neurological exam: Present: alert, oriented X3 Psychiatric exam: Present: normal affect, normal mood Skin exam: Present: normal color Course Vital Signs 05/18/24 05/18/24 05/18/24 18:18 21:00 23:08 Temperature 102.8 F H 102.7 F H 98.4 F Pulse Rate 129 H 115 H 97 Respiratory 18 20 18 Rate Blood Pressure 138/86 105/69 082/63 O2 Sat by Pulse 93 L 92 L 94 L Oximetry 05/19/24 05/19/24 01:40 02:19 Temperature Pulse Rate 76 79 Respiratory 18 18 Rate Blood Pressure 87/51 91/57 O2 Sat by Pulse 94 L Oximetry Medical Decision Making - Medical Decision Making Infection identified at 2119 Was pt. sent in by a medical professional or institution (ANDREA Alvarado, INTERNATIONAL COORDINATOR, urgent care, hospital, or long term...) When possible be specific @ -No Did you speak to anyone other than the patient for history (EMS, parent, family, police, friend...)? What history was obtained from this source @ -No Did you review nursing and triage notes (agree or disagree)? Why? @ -I reviewed and agree with nursing and triage notes Were old charts reviewed (outside hosp., previous admission, EMS record, old EKG, old radiological studies, urgent care reports/EKG's, long term records)? Report findings @ -No old charts were reviewed Differential Diagnosis (chest pain, altered mental status, abdominal pain women, abdominal pain men, vaginal bleeding, weakness, fever, dyspnea, syncope, headache, dizziness, GI bleed, back pain, seizure, CVA, palpatations, mental health, musculoskeletal)? @ - [facility] Differential Fever: Pneumonia, viral URI, endocarditis, myocarditis, pericarditis, otitis, sinusitis, peritonsillar Abscess, retropharyngeal Abscess, epiglottitis, peritonitis, appendicitis, Elvie cystitis, diverticulitis, hepatitis, colitis, UTI, PID, TOA, pyelonephritis, prostatitis, epididymitis, meningitis, encephalitis, pulmonary embolism, CVA, thyroid storm, pancreatitis, adrenal crisis, cavernous sinus thrombosis this is not meant to be an all-inclusive list. EKG interpreted by me (3pts min.). @ -As above X-rays interpreted by me (1pt min.). @ -None done CT interpreted by me (1pt min.). @ -None done U/S interpreted by me (1pt. min.). @ -None done What testing was considered but not performed or refused? (CT, X-rays, U/S, labs)? Why? @ -None What meds were considered but not given or refused? Why? @ -None Did you discuss the management of the patient with other professionals (professionals i.e. , PA, INTERNATIONAL COORDINATOR, lab, RT, psych nurse, social media marketer, cco & president, teacher, chief client officer, nurse outreach case manager)? Give summary @ -I spoke with Dr. Chakraborty who accepted admission Was smoking cessation discussed for >3mins.? @ -No Was critical care preformed (if so, how long)? @ -No Were there social determinants of health that impacted care today? How? (Homelessness, low income, unemployed, alcoholism, drug addiction, transportation, low edu. Level, literacy, decrease access to med. care, detention, rehab)? @ -No Was there de-escalation of care discussed even if they declined (Discuss DNR or withdrawal of care, Hospice)? DNR status @ -No What co-morbidities impacted this encounter? (DM, HTN, Smoking, COPD, CAD, Cancer, CVA, ARF, Chemo, Hep., AIDS, mental health diagnosis, sleep apnea, morbid obesity)? @ -None Was patient admitted / discharged? Hospital course, mention meds given and route, prescriptions, significant lab abnormalities, going to OR and other pertinent info. @ -69-year-old male presenting with chief complaint of fever. Patient recently had a Pulido catheter removed that was placed after spinal fusion surgery 2 weeks ago. For the last 2 days he has had difficulty with emptying his bladder. Today in addition to fever he was feeling generally weak nauseous, had a headache, and elevated blood pressure. History and physical exam are conducted. Patient is febrile and tachycardic, he is started on Motrin and Tylenol as well as IV fluids. UA is positive for UTI, infection identified at 2119, Rocephin 1 g administered 2200. Patient was treated with 2 L IV fluid bolus and placed on maintenance rate of 130 mL/h. No leukocytosis. Negative for influenza, RSV, COVID. Chest x-ray is negative for consolidation. Patient meets sepsis criteria. He will be admitted, urology is consulted. Patient is in agreement with this plan. I discussed this case with my attending Dr. Orozco Undiagnosed new problem with uncertain prognosis? @ -No Drug Therapy requiring intensive monitoring for toxicity (Heparin, Nitro, Insulin, Cardizem)? @ -No Were any procedures done? @ -No Diagnosis/symptom? @ -UTI, sepsis Acute, or Chronic, or Acute on Chronic? @ -Acute Uncomplicated (without systemic symptoms) or Complicated (systemic symptoms)? @ -Complicated Side effects of treatment? @ -No Exacerbation, Progression, or Severe Exacerbation? @ -No Poses a threat to life or bodily function? How? (Chest pain, [place], LA, pneumonia, PE, COPD, DKA, ARF, appy, cholecystitis, CVA, Diverticulitis, Homicidal, Suicidal, threat to staff... and all critical care pts) @ -Yes, concern for progression to end organ damage - Lab Data Result diagrams: 05/19/24 14:13 05/18/24 19:17 Lab Results 05/18/24 05/18/24 05/18/24 Range/Units 19:17 19:17 19:17 WBC 4.7 (3.8-10.6) k/uL RBC 4.66 (4.30-5.90) m/uL Hgb 13.8 (13.0-17.5) gm/dL Hct 43.8 (39.0-53.0) % MCV 94.0 (80.0-100.0) fL MCH 29.7 (25.0-35.0) pg MCHC 31.5 (31.0-37.0) g/dL RDW 15.2 (11.5-15.5) % Plt Count 168 (150-450) k/uL MPV 7.6 Neutrophils % 92 % Lymphocytes % 5 % Monocytes % 1 % Eosinophils % 1 % Basophils % 0 % Neutrophils # 4.3 (1.3-7.7) k/uL Lymphocytes # 0.3 L (1.0-4.8) k/uL Monocytes # 0.1 (0-1.0) k/uL Eosinophils # 0.0 (0-0.7) k/uL Basophils # 0.0 (0-0.2) k/uL Sodium 138 (137-145) mmol/L Potassium 3.6 (3.5-5.1) mmol/L Chloride 101 (98-107) mmol/L Carbon Dioxide 22 (22-30) mmol/L Anion Gap 15 mmol/L BUN 16 (9-20) mg/dL Creatinine 0.85 (0.66-1.25) mg/dL Est GFR (CKD-EPI)AfAm >90 (>60 ml/min/1.73 sqM) Est GFR (CKD-EPI)NonAf 90 (>60 ml/min/1.73 sqM) Glucose 127 H (74-99) mg/dL Lactic Ac Sepsis Rflx Plasma Lactic Acid Sudheer 4.9 H* (0.7-2.0) mmol/L Calcium 9.0 (8.4-10.2) mg/dL Total Bilirubin 0.7 (0.2-1.3) mg/dL AST 34 (17-59) U/L ALT 37 (4-49) U/L Alkaline Phosphatase 91 (38-126) U/L Total Protein 7.5 (6.3-8.2) g/dL Albumin 4.3 (3.5-5.0) g/dL Urine Color Urine Appearance (Clear) Urine pH (5.0-8.0) Ur Specific [place] (1.001-1.035) Urine Protein (Negative) Urine Glucose (UA) (Negative) Urine Ketones (Negative) Urine Blood (Negative) Urine Nitrite (Negative) Urine Bilirubin (Negative) Urine Urobilinogen (<2.0) mg/dL Ur Leukocyte Esterase (Negative) Urine RBC (0-5) /hpf Urine WBC (0-5) /hpf Ur Squamous Epith Cells (0-4) /hpf Urine Bacteria (None) /hpf Urine Mucus (None) /hpf Influenza Type A (PCR) (Not Detectd) Influenza Type B (PCR) (Not Detectd) RSV (PCR) (Not Detectd) SARS-CoV-2 (PCR) (Not Detectd) 05/18/24 05/18/24 05/18/24 Range/Units 19:17 21:08 21:20 WBC (3.8-10.6) k/uL RBC (4.30-5.90) m/uL Hgb (13.0-17.5) gm/dL Hct (39.0-53.0) % MCV (80.0-100.0) fL MCH (25.0-35.0) pg MCHC (31.0-37.0) g/dL RDW (11.5-15.5) % Plt Count (150-450) k/uL MPV Neutrophils % % Lymphocytes % % Monocytes % % Eosinophils % % Basophils % % Neutrophils # (1.3-7.7) k/uL Lymphocytes # (1.0-4.8) k/uL Monocytes # (0-1.0) k/uL Eosinophils # (0-0.7) k/uL Basophils # (0-0.2) k/uL Sodium (137-145) mmol/L Potassium (3.5-5.1) mmol/L Chloride (98-107) mmol/L Carbon Dioxide (22-30) mmol/L Anion Gap mmol/L BUN (9-20) mg/dL Creatinine (0.66-1.25) mg/dL Est GFR (CKD-EPI)AfAm (>60 ml/min/1.73 sqM) Est GFR (CKD-EPI)NonAf (>60 ml/min/1.73 sqM) Glucose (74-99) mg/dL Lactic Ac Sepsis Rflx Y Plasma Lactic Acid Sudheer (0.7-2.0) mmol/L Calcium (8.4-10.2) mg/dL Total Bilirubin (0.2-1.3) mg/dL AST (17-59) U/L ALT (4-49) U/L Alkaline Phosphatase (38-126) U/L Total Protein (6.3-8.2) g/dL Albumin (3.5-5.0) g/dL Urine Color Colorless Urine Appearance Cloudy (Clear) Urine pH 6.0 (5.0-8.0) Ur Specific [place] 1.016 (1.001-1.035) Urine Protein 1+ H (Negative) Urine Glucose (UA) Negative (Negative) Urine Ketones 1+ H (Negative) Urine Blood Moderate H (Negative) Urine Nitrite Negative (Negative) Urine Bilirubin Negative (Negative) Urine Urobilinogen <2.0 (<2.0) mg/dL Ur Leukocyte Esterase Large H (Negative) Urine RBC 17 H (0-5) /hpf Urine WBC >182 H (0-5) /hpf Ur Squamous Epith Cells <1 (0-4) /hpf Urine Bacteria Occasional H (None) /hpf Urine Mucus Rare H (None) /hpf Influenza Type A (PCR) Not Detected (Not Detectd) Influenza Type B (PCR) Not Detected (Not Detectd) RSV (PCR) Not Detected (Not Detectd) SARS-CoV-2 (PCR) Not Detected (Not Detectd) Disposition Clinical Impression: Pyelonephritis, Sepsis Disposition: ADMITTED IP TO THIS HOSP Condition: Serious Time of Disposition: 21:45
[2024-05-18] MEDS: IBUPROFEN 400 MG TAB PO STA ×2 (19:11→22:00)
[2024-05-18] MEDS: ACETAMINOPHEN TAB 500 MG TAB PO STA (19:11)
[2024-05-18] MEDS: SODIUM CHLORIDE 0.9% 1,000 ML IV STA ×2 (19:29→19:30)
--- NOTE | 2024-05-18 19:47 | XR ---
EXAM: XR chest 1V portable CLINICAL INDICATION:Male, 69 years old with history of fever; [facility] COMPARISON: 02/16/2024 TECHNIQUE: Chest single view. FINDINGS: Lines/tubes/devices: None. Cardiomediastinum: Cardiac silhouette appears upper normal in size. Stable mediastinal silhouette. Mildly tortuous partially calcified aorta. Vasculature: Slightly increased hilar markings with shaggy opacities and mild diffuse interstitial m arkings bilaterally compared to previous. Lungs/pleura: Perihilar calcified nodules suggested, likely granulomas. No focal airspace disease, sizable effusion , or evidence of pneumothorax. Possible mild left basilar atelectasis. Bones/soft tissues: Bony thorax appears grossly intact as seen. Regional soft tissues appear unremarkable. IMPRESSION: 1. Findings may reflect mild central vascular congestion, interstitial edema and/or pneumonitis. 2. No focal airspace disease.
[2024-05-18 20:37] LABS: Basophils % (A) 0 %; Eosinophils % (A) 1 %; HCT 43.8 % (39.0-53.0); HGB 13.8 gm/dL (13.0-17.5); Lymphocytes # (A) 0.3 k/uL (1.0-4.8); Lymphocytes % (A) 5 %; MCH 29.7 pg (25.0-35.0); MCHC 31.5 g/dL (31.0-37.0); Mean Platelet Volume 7.6; Monocytes # (A) 0.1 k/uL (0-1.0); Monocytes % (A) 1 %; Neutrophils # (A) 4.3 k/uL (1.3-7.7); Neutrophils % (A) 92 %; Platelet Count 168 k/uL (150-450); RBC 4.66 m/uL (4.30-5.90); RDW 15.2 % (11.5-15.5); WBC 4.7 k/uL (3.8-10.6)
[2024-05-18] MEDS: MORPHINE SULFATE 4 MG/ML SYRINGE IVP STA (20:57)
[2024-05-18 21:04] LABS: ALT 37 U/L (4-49); AST 34 U/L (17-59); African American GFR (CKD) >90 (>60 ml/min/1.73 sqM); Albumin 4.3 g/dL (3.5-5.0); Alkaline Phosphatase 91 U/L (38-126); Anion Gap 15 mmol/L; Blood Urea Nitrogen 16 mg/dL (9-20); Carbon Dioxide 22 mmol/L (22-30); Chloride 101 mmol/L (98-107); Glucose 127 mg/dL (74-99); Non-African American GFR(CKD) 90 (>60 ml/min/1.73 sqM); Potassium 3.6 mmol/L (3.5-5.1); Sodium 138 mmol/L (137-145); Total Bilirubin 0.7 mg/dL (0.2-1.3); Total Protein 7.5 g/dL (6.3-8.2)
[2024-05-18 21:07] LABS: Appearance,Urine Cloudy (Clear); Bacteria,Urine Occasional /hpf; Bilirubin,Urine Negative (Negative); Blood,Urine Moderate (Negative); Color,Urine Colorless; Glucose,Urine (UA) Negative (Negative); Ketones,Urine 1+ (Negative); Leukocyte Esterase,Urine Large (Negative); Mucus,Urine Rare /hpf; Nitrite,Urine Negative (Negative); Protein,Urine 1+ (Negative); RBC,Urine 17 /hpf (0-5); Specific Gravity,Urine 1.016 (1.001-1.035); Squamous Epithelial Cell,Urine <1 /hpf (0-4); Urobilinogen,Urine <2.0 mg/dL (<2.0); WBC,Urine >182 /hpf (0-5)
[2024-05-18] MEDS ORDERED: NALOXONE 0.4 MG/ML 1 ML VIAL IV PRN (21:47)
[2024-05-18] MEDS ORDERED: IBUPROFEN 400 MG TAB PO PRN (21:47)
[2024-05-18] MEDS ORDERED: ONDANSETRON 4 MG/2 ML VIAL IVP PRN (21:47)
[2024-05-18] MEDS: cefTRIAXone IN SWFI 1,000 MG/10 ML SYRINGE IVP STA (22:01)
[2024-05-18] MEDS: SODIUM CHLORIDE 0.9% 2,000 ML IV ONE (23:20)
[2024-05-19] MEDS: CEFEPIME 2 GM in SODIUM CHLORIDE 0.9% 100 ML IVPB SCH (11:41)
[2024-05-19] MEDS ORDERED: tiZANidine 4 MG TAB PO PRN (12:43)
[2024-05-19] MEDS: MORPHINE SULFATE 4 MG/ML SYRINGE IV PRN (12:46)
[2024-05-19 12:53] LABS: Glucose,Whole Blood 101 mg/dL (70-110)
[2024-05-19] MEDS: NITROGLYCERIN SL TABS 0.4 MG TAB SUBLINGUAL PRN (12:55)
[2024-05-19] MEDS: NITROGLYCERIN SL TABS 0.4 MG TAB SUBLINGUAL ONE (13:01)
[2024-05-19] MEDS: ASPIRIN 81 MG PO SCH (13:04)
[2024-05-19] MEDS: METOPROLOL SUCCINATE (ER) 25 MG TAB.ER.24H PO SCH (13:04)
[2024-05-19] MEDS: PRIMIDONE 50 MG TAB PO SCH ×2 (13:05→13:06)
[2024-05-19] MEDS: CARBIDOPA-LEVODOPA 25-100 MG 1 EACH TAB PO SCH (13:05)
[2024-05-19] MEDS: PREGABALIN 100 MG CAP PO SCH (13:05)
--- NOTE | 2024-05-19 14:09 | P.GSCN ---
History of Present Illness Consult date: 05/19/24 Reason for Consult: UTI, urinary retention Requesting physician: Pierce Chakraborty History of present illness: The patient is a 69-year-old white male who underwent cervical spine fusion at [facility] approximately 2 weeks ago. A Pulido catheter was placed for postoperative urinary retention. The catheter was removed by a [place] urologist on May 16, but the patient subsequently experienced increased urinary frequency and felt he was not emptying his bladder. He did then developed a fever up to 103 F and presented to the ER. He was found to have a UTI and admitted. A Pulido catheter was placed for ongoing urinary retention. The patient states that he underwent a TURP by Dr. Vela several years ago. He has also undergone endoscopic removal of a kidney stone by Dr. Vela. He was placed on Flomax several months ago for increased voiding symptoms, though Flomax is not listed as one of his home medications. His PSA level in September 2023 was 0.880. Review of Systems - Constitutional Reports fever - Cardiovascular Reports high blood pressure (But this) - Gastrointestinal Reports nausea, Reports vomiting - Genitourinary Reports dysuria, Reports urinary frequency Past Medical History Past Medical History: Coronary Artery Disease (CAD), Chest Pain / Angina, Heart Failure, Dementia, GERD/Reflux, Hyperlipidemia, Hypertension, Myocardial Infarction ([place]), Neurologic Disorder, Pneumonia, Prostate Disorder, Renal Di sease, Skin Disorder, Sleep Apnea/CPAP/BIPAP Additional Past Medical History / Comment(s): early parkinson's with essential tremors, "lewy body dementia" R nephrolithiasis with surgery, EDITH with no CPAP, Irritable Bowel Syndrome diarrhea off and on, pneumonia/bronchitis, BPH, blood in stool-EGD/colonoscopy were normal, past hiatal hernia(sx), past falls., kidney failure, Last Myocardial Infarction Date:: 06/09/13 History of Any Multi-Drug Resistant Organisms: None Reported Past Surgical History: Back Surgery, Heart Catheterization, Heart Catheterization With Stent, Hernia Repair Additional Past Surgical History / Comment(s): 05/2013 stent to LAD and then a cardiac cath which showed stent patent, Recent R kidney stone removal, 03/19/15 Laparoscopic Elizabeth fundlaplication. SKIN GRAFTS CHEST & BACK FROM BASSETT AT 13 YRS OLD., COLONOSCOPY. EGD, L lazy eye surgery as toddler. c3 c4 fusion, c4 c5 fusion. Past Anesthesia/Blood Transfusion Reactions: No Reported Reaction Additional Past Anesthesia/Blood Transfusion Reaction / Comm: Pt received blood in 1967 without reaction. Date of Last Stent Placement:: 12/2017 Past Psychological History: Bipolar, Depression Additional Psychological History / Comment(s): Pt lives with his . He has depression but states medication for this is working. He is normally independent. Smoking Status: Never smoker Past Alcohol Use History: None Reported Additional Past Alcohol Use History / Comment(s): Pt quit drinking alcohol in 2004( drank almost on daily basis) Past Drug Use History: None Reported - Past Family History Mother Family Medical History: Liver Disease Additional Family Medical History / Comment(s): Mother was an alcoholic. She of cirrhosis of the liver at age 60yrs. Father Family Medical History: Cancer, Coronary Artery Disease (CAD), Myocardial Infarction ([place]) Additional Family Medical History / Comment(s): SKIN CA. Father of a [place] at age 65 yrs. Brother(s) Family Medical History: Cancer Additional Family Medical History / Comment(s): LEUKEMIA, LYMPH NODE CA AND MULTIPLE MYELOMA. Medications and Allergies Home Medications Medication Instructions Recorded Confirmed Type Primidone [Mysoline] 150 mg PO BID@0900,2100 12/20/17 02/17/24 History Atorvastatin [Lipitor] 80 mg PO HS #30 tab 08/06/19 02/17/24 Rx Memantine [Namenda] 10 mg PO BID 02/17/20 02/17/24 History Pramipexole Di-HCl [Mirapex] 1.5 mg PO HS 02/17/20 02/17/24 History Pregabalin [Lyrica] 100 mg PO BID 03/10/21 02/17/24 History Sertraline [Zoloft] 200 mg PO HS 08/18/21 02/17/24 History Aspirin 81 mg PO DAILY tab 11/25/22 02/17/24 Rx HYDROcodone/APAP 5-325MG [[place] 1 tab PO TID PRN 02/27/23 02/17/24 History 5-325] Ibuprofen [Motrin] 800 mg PO TID 02/17/24 02/17/24 History Metoprolol Succinate (ER) [Toprol 25 mg PO DAILY 02/17/24 02/17/24 History XL] Primidone [Mysoline] 100 mg PO DAILY@1500 02/17/24 02/17/24 History Furosemide [Lasix] 40 mg PO DAILY #0 02/18/24 02/17/24 Rx Tamsulosin [Flomax] 0.4 mg PO DAILY 05/19/24 05/19/24 History hydrALAZINE HCL [Apresoline] 25 mg PO TID 05/19/24 05/19/24 History Allergies Allergy/AdvReac Type Severity Reaction Status Date / Time No Known Allergies Allergy Verified 05/19/24 13:05 Surgical - Exam Vital Signs Temp Pulse Resp BP Pulse Ox 102.8 F H 129 H 18 138/86 93 L 05/18/24 18:18 05/18/24 18:18 05/18/24 18:18 05/18/24 18:18 05/18/24 18:18 - General well developed, well nourished, no distress - Respiratory normal respiratory effort - Abdomen Abdomen: soft, non tender, no guarding, no rigid, no rebound - Genitourinary normal penis with no external lesions, testicles non-tender - Rectum Rectum: normal sphincter tone, no masses, other (Prostate 30 to 40 g in size, anodular, R>>L) - Psychiatric oriented to time, oriented to person, oriented to place, speech is normal, memory intact Results - Labs 05/18/24 19:17 05/18/24 19:17 Abnormal Lab Results - Last 24 Hours (Table) 05/18/24 05/18/24 05/18/24 Range/Units 19:17 19:17 19:17 Lymphocytes # 0.3 L (1.0-4.8) k/uL Glucose 127 H (74-99) mg/dL Plasma Lactic Acid Sudheer 4.9 H* (0.7-2.0) mmol/L Urine Protein (Negative) Urine Ketones (Negative) Urine Blood (Negative) Ur Leukocyte Esterase (Negative) Urine RBC (0-5) /hpf Urine WBC (0-5) /hpf Urine Bacteria (None) /hpf Urine Mucus (None) /hpf 05/18/24 Range/Units 19:17 Lymphocytes # (1.0-4.8) k/uL Glucose (74-99) mg/dL Plasma Lactic Acid Sudheer (0.7-2.0) mmol/L Urine Protein 1+ H (Negative) Urine Ketones 1+ H (Negative) Urine Blood Moderate H (Negative) Ur Leukocyte Esterase Large H (Negative) Urine RBC 17 H (0-5) /hpf Urine WBC >182 H (0-5) /hpf Urine Bacteria Occasional H (None) /hpf Urine Mucus Rare H (None) /hpf Diabetes panel 05/18/24 Range/Units 19:17 Sodium 138 (137-145) mmol/L Potassium 3.6 (3.5-5.1) mmol/L Chloride 101 (98-107) mmol/L Carbon Dioxide 22 (22-30) mmol/L BUN 16 (9-20) mg/dL Creatinine 0.85 (0.66-1.25) mg/dL Glucose 127 H (74-99) mg/dL Calcium 9.0 (8.4-10.2) mg/dL AST 34 (17-59) U/L ALT 37 (4-49) U/L Alkaline Phosphatase 91 (38-126) U/L Total Protein 7.5 (6.3-8.2) g/dL Albumin 4.3 (3.5-5.0) g/dL Calcium panel 05/18/24 Range/Units 19:17 Calcium 9.0 (8.4-10.2) mg/dL Albumin 4.3 (3.5-5.0) g/dL Pituitary panel 05/18/24 Range/Units 19:17 Sodium 138 (137-145) mmol/L Potassium 3.6 (3.5-5.1) mmol/L Chloride 101 (98-107) mmol/L Carbon Dioxide 22 (22-30) mmol/L BUN 16 (9-20) mg/dL Creatinine 0.85 (0.66-1.25) mg/dL Glucose 127 H (74-99) mg/dL Calcium 9.0 (8.4-10.2) mg/dL Adrenal panel 05/18/24 Range/Units 19:17 Sodium 138 (137-145) mmol/L Potassium 3.6 (3.5-5.1) mmol/L Chloride 101 (98-107) mmol/L Carbon Dioxide 22 (22-30) mmol/L BUN 16 (9-20) mg/dL Creatinine 0.85 (0.66-1.25) mg/dL Glucose 127 H (74-99) mg/dL Calcium 9.0 (8.4-10.2) mg/dL Total Bilirubin 0.7 (0.2-1.3) mg/dL AST 34 (17-59) U/L ALT 37 (4-49) U/L Alkaline Phosphatase 91 (38-126) U/L Total Protein 7.5 (6.3-8.2) g/dL Albumin 4.3 (3.5-5.0) g/dL Assessment and Plan (1) Retention of urine, unspecified Current Visit: Yes Status: Acute Code(s): R33.9 - RETENTION OF URINE, UNSPECIFIED SNOMED Code(s): 682798351 (2) Urinary tract infection, site not specified Current Visit: Yes Status: Acute Code(s): N39.0 - URINARY TRACT INFECTION, SITE NOT SPECIFIED SNOMED Code(s): 86871292 Plan: - Continue Pulido catheter - Tamsulosin has been ordered - Continue cefepime, pending urine and blood cultures. Time with Patient: Greater than 30
[2024-05-19] MEDS: HEPARIN SOD,PORK IN 0.45% NACL 25,000 UNIT in 0.45% NACL 1 250ML.BAG IV SCH (14:14)
[2024-05-19 14:52] LABS: Basophils % (A) 0 %; Eosinophils # (A) 0.1 k/uL (0-0.7); Eosinophils % (A) 1 %; HCT 32.9 % (39.0-53.0); Lymphocytes # (A) 0.5 k/uL (1.0-4.8); Lymphocytes % (A) 5 %; MCH 30.7 pg (25.0-35.0); MCHC 33.6 g/dL (31.0-37.0); MCV 91.5 fL (80.0-100.0); Monocytes # (A) 0.5 k/uL (0-1.0); Monocytes % (A) 5 %; Neutrophils # (A) 9.3 k/uL (1.3-7.7); Neutrophils % (A) 88 %; Platelet Count 125 k/uL (150-450); RBC 3.59 m/uL (4.30-5.90); RDW 15.5 % (11.5-15.5); WBC 10.5 k/uL (3.8-10.6)
[2024-05-19 14:56] LABS: INR 1.4 (<1.2); Partial Thromboplastin Time 30.7 sec (22.0-30.0); Prothrombin Time 14.2 sec (10.0-12.5)
--- NOTE | 2024-05-19 15:06 | P.CRDCN ---
History of Present Illness Consult date: 05/19/24 Consult reason: chest pain Chief complaint: Chest pain History of present illness: History of present illness: Patient is a pleasant 69-year-old male with significant past medical history of A-fib, CAD status post PCI, hypertension, tremors, restless leg syndrome, Parkinson's, dementia who presented with fevers, vomiting, hypotension. He does see Dr. Menendez in the office. Cardiology was consulted today due to new onset of chest pain and left arm numbness with shortness of breath. He reports that the symptoms started approximately 30 minutes ago and were consistent worse when he had a prior GA back in 2012. He was given nitroglycerin and this did resolve the symptoms. Blood pressure is currently elevated 154/85. EKG did show sinus rhythm with no significant ST or T wave changes. He had recent neck surgery 2 weeks ago, he was having urinary retention after that and went home with a Pulido catheter, this was removed a couple days ago and has been having issues with urinary retention. He reports he had a fever of 103 and began vomiting yesterday. He was diagnosed with sepsis. He had missed a few doses of his home medications. REVIEW OF SYSTEMS: No fever or chills. No cough or expectoration. No diaphoresis. Patient denies headache, dizziness, blurred vision, double vision. Patient denies any stomach discomfort. No nausea, vomiting. No hematochezia. No hematemesis. Denies any black stools or blood in his stools. Denies dysuria or hematuria. No muscle weakness or numbness. Report chest pain or pressure. Reports left arm numbness. Reports shortness of breath. PHYSICAL EXAMINATION: This is a 69-year-old male in no apparent distress at the time of my examination. HEENT: Head is atraumatic, normocephalic. Pupils are equal, round. Sclerae anicteric. Conjunctivae are clear. Mucous membranes of the mouth are moist. Neck is supple. There is no jugular venous distention. No carotid bruit is heard. CHEST EXAMINATION: Lungs are clear to auscultation. No chest wall tenderness is noted on palpation or with deep breathing. HEART EXAMINATION: Heart regular rate and rhythm. S1, S2 heard. No murmurs, gallops or rub. ABDOMEN: Soft, nontender. Bowel sounds are heard. EXTREMITIES: 2+ peripheral pulses with no evidence of peripheral edema and no calf tenderness noted. NEUROLOGIC EXAMINATION: Patient is awake, alert and oriented x3. IMPRESSION AND PLAN: Chest pain CAD status post PCI Hypertension Atrial fibrillation, paroxysmal Recent sepsis PLAN: EKG is stable. Trend troponin. Will start heparin drip and continue with aspirin. Symptoms likely related to infection and the fact that he has missed a few doses of his antianginals. Resume home medications. We will follow. I am dictating on behalf of Dr. Gustabo Page's history/physical and assessment/plan. Past Medical History Past Medical History: Coronary Artery Disease (CAD), Chest Pain / Angina, Heart Failure, Dementia, GERD/Reflux, Hyperlipidemia, Hypertension, Myocardial Infarction (GA), Neurologic Disorder, Pneumonia, Prostate Disorder, Renal Disease, Skin Disorder, Sleep Apnea/CPAP/BIPAP Additional Past Medical History / Comment(s): early parkinson's with essential tremors, "lewy body dementia" R nephrolithiasis with surgery, EDITH with no CPAP, Irritable Bowel Syndrome diarrhea off and on, pneumonia/bronchitis, BPH, blood in stool-EGD/colonoscopy were normal, past hiatal hernia(sx), past falls., kidney failure, Last Myocardial Infarction Date:: 06/09/13 History of Any Multi-Drug Resistant Organisms: None Reported Past Surgical History: Back Surgery, Heart Catheterization, Heart Catheterization With Stent, Hernia Repair Additional Past Surgical History / Comment(s): 05/2013 stent to LAD and then a cardiac cath which showed stent patent, Recent R kidney stone removal, 03/19/15 Laparoscopic Elizabeth fundlaplication. SKIN GRAFTS CHEST & BACK FROM BASSETT AT 13 YRS OLD., COLONOSCOPY. EGD, L lazy eye surgery as toddler. c3 c4 fusion, c4 c5 fusion. Past Anesthesia/Blood Transfusion Reactions: No Reported Reaction Additional Past Anesthesia/Blood Transfusion Reaction / Comment(s): Pt received blood in 1967 without reaction. Date of Last Stent Placement:: 12/2017 Past Psychological History: Bipolar, Depression Additional Psychological History / Comment(s): Pt lives with his . He has depression but states medication for this is working. He is normally independent. Smoking Status: Never smoker Past Alcohol Use History: None Reported Additional Past Alcohol Use History / Comment(s): Pt quit drinking alcohol in 2004( drank almost on daily basis) Past Drug Use History: None Reported - Past Family History Mother Family Medical History: Liver Disease Additional Family Medical History / Comment(s): Mother was an alcoholic. She of cirrhosis of the liver at age 60yrs. Father Family Medical History: Cancer, Coronary Artery Disease (CAD), Myocardial Infarction (GA) Additional Family Medical History / Comment(s): SKIN CA. Father of a GA at age 65 yrs. Brother(s) Family Medical History: Cancer Additional Family Medical History / Comment(s): LEUKEMIA, LYMPH NODE CA AND MULTIPLE MYELOMA. Medications and Allergies Home Medications Medication Instructions Recorded Confirmed Type Primidone [Mysoline] 100 mg PO DAILY 12/20/17 05/19/24 History Atorvastatin [Lipitor] 80 mg PO HS #30 tab 08/06/19 05/19/24 Rx Memantine [Namenda] 10 mg PO BID 02/17/20 05/19/24 History Pramipexole Di-HCl [Mirapex] 1.5 mg PO HS 02/17/20 05/19/24 History Pregabalin [Lyrica] 100 mg PO BID 03/10/21 05/19/24 History Sertraline [Zoloft] 200 mg PO DAILY 08/18/21 05/19/24 History Aspirin 81 mg PO DAILY tab 11/25/22 05/19/24 Rx HYDROcodone/APAP 5-325MG [[place] 1 tab PO Q6H PRN 02/27/23 05/19/24 History 5-325] Ibuprofen [Motrin] 800 mg PO TID PRN 02/17/24 05/19/24 History Metoprolol Succinate (ER) [Toprol 25 mg PO DAILY 02/17/24 05/19/24 History XL] Primidone [Mysoline] 150 mg PO HS 02/17/24 05/19/24 History Furosemide [Lasix] 40 mg PO DAILY #0 02/18/24 05/19/24 Rx Tamsulosin [Flomax] 0.4 mg PO DAILY 05/19/24 05/19/24 History hydrALAZINE HCL [Apresoline] 25 mg PO TID 05/19/24 05/19/24 History Allergies Allergy/AdvReac Type Severity Reaction Status Date / Time No Known Allergies Allergy Verified 05/19/24 13:05 Physical Exam Vitals: Vital Signs Temp Pulse Pulse Resp BP BP Pulse Ox 05/19/24 12:52 95 05/19/24 12:32 86 19 148/78 94 L 05/19/24 11:11 97.5 F L 68 19 121/76 95 05/19/24 08:48 67 19 05/19/24 08:47 97.5 F L 67 19 94/56 95 05/19/24 02:49 97.6 F 86 20 94/78 95 05/19/24 02:19 79 18 91/57 94 L 05/19/24 01:40 76 18 87/51 05/18/24 23:08 98.4 F 97 18 082/63 94 L 05/18/24 21:00 102.7 F H 115 H 20 105/69 92 L 05/18/24 18:18 102.8 F H 129 H 18 138/86 93 L Intake and Output 05/19/24 05/19/24 05/19/24 06:59 14:59 22:59 Intake Total 0 246 Balance 0 246 Intake: IV 10 Invasive Line 2 10 Oral 0 236 Other: Voiding Method Indwelling Catheter Weight 99.79 kg Results 05/19/24 14:13 05/18/24 19:17 Cardiac Enzymes 05/18/24 Range/Units 19:17 AST 34 (17-59) U/L Coagulation 05/19/24 Range/Units 14:13 PT 14.2 H (10.0-12.5) sec APTT 30.7 H (22.0-30.0) sec CBC 05/18/24 05/19/24 Range/Units 19:17 14:13 WBC 4.7 10.5 (3.8-10.6) k/uL RBC 4.66 3.59 L (4.30-5.90) m/uL Hgb 13.8 11.0 L (13.0-17.5) gm/dL Hct 43.8 32.9 L (39.0-53.0) % Plt Count 168 125 L (150-450) k/uL Comprehensive Metabolic Panel 05/18/24 Range/Units 19:17 Sodium 138 (137-145) mmol/L Potassium 3.6 (3.5-5.1) mmol/L Chloride 101 (98-107) mmol/L Carbon Dioxide 22 (22-30) mmol/L BUN 16 (9-20) mg/dL Creatinine 0.85 (0.66-1.25) mg/dL Glucose 127 H (74-99) mg/dL Calcium 9.0 (8.4-10.2) mg/dL AST 34 (17-59) U/L ALT 37 (4-49) U/L Alkaline Phosphatase 91 (38-126) U/L Total Protein 7.5 (6.3-8.2) g/dL Albumin 4.3 (3.5-5.0) g/dL Current Medications Generic Name Dose Route Start Last Admin Trade Name Freq PRN Reason Stop Dose Admin Acetaminophen 650 mg 05/18/24 21:47 Acetaminophen Tab 325 Mg Tab PO Q6HR PRN Mild Pain or Fever > 100.5 Hydrocodone Bitart/Acetaminophen 1 each 05/19/24 12:43 Hydrocodone/Apap 5-325mg 1 Each Tab PO TID PRN Pain Aspirin 81 mg 05/19/24 12:45 05/19/24 13:04 Aspirin 81 Mg PO 81 mg DAILY DELORES Administration Atorvastatin Calcium 80 mg 05/19/24 21:00 Atorvastatin 80 Mg Tab PO HS DELORES Heparin Sodium (Porcine) 0 unit 05/19/24 12:59 Heparin Sodium 1,000 Un/Ml (10ml Vl) IV PER PROTOCOL PRN Low PTT Protocol Cefepime HCl 2 gm/ Sodium 100 mls @ 25 mls/hr 05/19/24 12:00 05/19/24 11:41 Chloride IVPB 25 mls/hr Q8H DELORES Administration Protocol Heparin Sodium/Sodium Chloride 250 mls @ 9.979 mls/hr 05/19/24 13:00 05/19/24 14:14 25,000 unit/ Sodium Chloride IV 10 units/kg/hr .Q24H DELORES 9.979 mls/hr Administration Protocol 10 UNITS/KG/HR Ibuprofen 400 mg 05/18/24 21:47 Ibuprofen 400 Mg Tab PO Q6HR PRN Mild Pain or Fever > 100.5 Metoprolol Succinate 25 mg 05/19/24 12:45 05/19/24 13:04 Metoprolol Succinate (Er) 25 Mg Tab.Er.24h PO 25 mg DAILY DELORES Administration Morphine Sulfate 4 mg 05/18/24 21:47 05/19/24 12:46 Morphine Sulfate 4 Mg/Ml Syringe IV 4 mg Q4HR PRN Administration Severe Pain (Scale 7 to 10) Naloxone HCl 0.2 mg 05/18/24 21:47 Naloxone 0.4 Mg/Ml 1 Ml Vial IV Q2M PRN Opioid Reversal Nitroglycerin 0.4 mg 05/19/24 12:51 05/19/24 12:55 Nitroglycerin Sl Tabs 0.4 Mg Tab SUBLINGUAL 0.4 mg Q5M PRN Administration Chest Pain Ondansetron HCl 4 mg 05/18/24 21:47 Ondansetron 4 Mg/2 Ml Vial IVP Q8HR PRN Nausea And Vomiting Pregabalin 100 mg 05/19/24 12:45 05/19/24 13:05 Pregabalin 100 Mg Cap PO 100 mg BID DELORES Administration Primidone 150 mg 05/19/24 12:43 05/19/24 13:06 Primidone 50 Mg Tab PO Not Given BID@0900,2100 DELORES Primidone 100 mg 05/19/24 15:00 05/19/24 13:05 Primidone 50 Mg Tab PO 100 mg DAILY@1500 DELORES Administration Sertraline HCl 200 mg 05/19/24 21:00 Sertraline 100 Mg Tab PO HS DELORES Tamsulosin HCl 0.4 mg 05/20/24 09:00 Tamsulosin 0.4 Mg Cap.Er.24h PO DAILY DELORES Intake and Output 05/19/24 05/19/24 05/19/24 06:59 14:59 22:59 Intake Total 0 246 Balance 0 246 Intake: IV 10 Invasive Line 2 10 Oral 0 236 Other: Voiding Method Indwelling Catheter Weight 99.79 kg 05/19/24 14:13 05/18/24 19:17
[2024-05-19] MEDS ORDERED: CALCIUM CARBONATE 500 MG CHEWABLE PO PRN (17:28)
[2024-05-19] MEDS ORDERED: LORazepam 2 MG/ML INJ IV PRN (17:28)
[2024-05-19] MEDS ORDERED: LACTULOSE 20 GM/30 ML CUP PO PRN (17:28)
[2024-05-19] MEDS ORDERED: TEMAZEPAM 15 MG CAP PO PRN (17:28)
[2024-05-19] MEDS ORDERED: RIVAROXABAN 20 MG TAB PO SCH (17:30)
--- NOTE | 2024-05-19 17:30 | P.HPIM ---
History of Present Illness H&P Date: 05/19/24 Chief Complaint: Fever pelvic pain 69-year-old patient of Dr. Gutierrez. Chronic stable medical conditions include some cognitive impairment, GERD, hyperlipidemia, hypertension, early Parkinson's versus essential tremor, , obstructive sleep apnea does not use CPAP, irritable bowel syndrome, BPH hiatal hernia. coronary artery disease with stent. Patient recently underwent cervical spine surgery at [facility]. Patient had urinary retention and a Pulido catheter had to be placed. Surgery otherwise went well. On May 16 Pulido catheter was discontinued. Patient started off with chills rigors deep pelvic pain dysuria yesterday. Tired rundown. Patient had a fever of 102.8 today in the ER with sepsis. Blood pressure also dropped down to around 90 systolic around midnight. This morning patient did have episode of chest pain EKG was ordered. Is unremarkable. Cardiology was also consulted. Earlier today blood cultures coming back positive for Enterobacter cloacae. Patient was initially given IV ceftriaxone in the ER. Was switched over to IV cefepime per pharmacy this morning. Patient rather tired. Decreased appetite Review of systems: GEN.: Fever chills rigors decreased appetite EYES: None HEENT: None NECK: None RESPIRATORY: None CARDIOVASCULAR: As above GASTROINTESTINAL: None GENITOURINARY: Dysuria deep pelvic pain MUSCULOSKELETAL: Joint pains LYMPHATICS: None HEMATOLOGICAL: None PSYCHIATRY: None NEUROLOGICAL: None Past medical history to include: Coronary artery disease with stent, cognitive impairment, GERD, hyperlipidemia, hypertension, Parkinson disease, BPH, obstructive sleep apnea does not use CPAP, hiatal hernia Elizabeth fundoplication depression Social history: lives with no smoking. Stopped drinking alcohol in 2004. Prior to that used to drink every day On examination: VITAL SIGNS: 102.8, 129, 18, 138 x 86, 93% room air upon presentation. GENERAL APPEARANCE: BMI 28.2, reclining in bed tired HEENT: Normal external appearance of nose and ear. Oral cavity normal EYES: Pupils equal. Conjunctiva normal. NECK: JVD not raised. Mass not palpable. RESPIRATORY: Respiratory effort . Lungs decreased breath sounds, CARDIOVASCULAR: First and second sounds normal. No edema. ABDOMEN: Soft. Liver and spleen not palpable. No tenderness. No mass palpable. PSYCHIATRY: Alert and oriented x3. Mood and affect a bit anxious NEUROLOGICAL: Cranial nerves grossly intact per sensation grossly intact LYMPHATICS: No lymph nodes were palpable neck and axilla INVESTIGATIONS, reviewed in the clinical context: May 19: White count 10.5 hemoglobin 11 platelets 125 Troponin I 0.030 May 18: White count 4.7 hemoglobin 13.8 platelet 168 sodium 138 potassium 3.6 creatinine 0.85 lactic acid 4.9 Influenza type A, type B, RSV, COVID-19: PCR not detected UA positive for ketones 1+ leukoesterase EKG tracing personally reviewed by me-normal sinus rhythm Chest x-ray film personally reviewed by me-nonspecific findings questionable infiltrate Assessment and plan: -Acute UTI with cystitis secondary to Pulido catheter that was placed perioperative therapy removed on May 16.: Causing severe sepsis Blood cultures positive for Enterobacter cloacae. IV cefepime -Severe sepsis secondary to UTI IV fluids. IV cefepime -Anterior chest wall pain. Possible angina Started on IV heparin. On aspirin. Cardiology consulted. Serial cardiac enzymes. 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 Namenda -Irritable bowel syndrome -Bipolar depression Zoloft, -Bladder outflow obstruction Flomax -Recent cervical spine surgery at [facility] -Full code Past Medical History Past Medical History: Coronary Artery Disease (CAD), Chest Pain / Angina, Heart Failure, Dementia, GERD/Reflux, Hyperlipidemia, Hypertension, Myocardial Infarction (RI), Neurologic Disorder, Pneumonia, Prostate Disorder, Renal Disease, Skin Disorder, Sleep Apnea/CPAP/BIPAP Additional Past Medical History / Comment(s): early parkinson's with essential tremors, "lewy body dementia" R nephrolithiasis with surgery, EDITH with no CPAP, Irritable Bowel Syndrome diarrhea off and on, pneumonia/bronchitis, BPH, blood in stool-EGD/colonoscopy were normal, past hiatal hernia(sx), past falls., kidney failure, Last Myocardial Infarction Date:: 06/09/13 History of Any Multi-Drug Resistant Organisms: None Reported Past Surgical History: Back Surgery, Heart Catheterization, Heart Catheterization With Stent, Hernia Repair Additional Past Surgical History / Comment(s): 05/2013 stent to LAD and then a cardiac cath which showed stent patent, Recent R kidney stone removal, 03/19/15 Laparoscopic Elizabeth fundlaplication. SKIN GRAFTS CHEST & BACK FROM BASSETT AT 13 YRS OLD., COLONOSCOPY. EGD, L lazy eye surgery as toddler. c3 c4 fusion, c4 c5 fusion. Past Anesthesia/Blood Transfusion Reactions: No Reported Reaction Additional Past Anesthesia/Blood Transfusion Reaction / Comment(s): Pt received blood in 1967 without reaction. Date of Last Stent Placement:: 12/2017 Past Psychological History: Bipolar, Depression Additional Psychological History / Comment(s): Pt lives with his . He has depression but states medication for this is working. He is normally independent. Smoking Status: Never smoker Past Alcohol Use History: None Reported Additional Past Alcohol Use History / Comment(s): Pt quit drinking alcohol in 2004( drank almost on daily basis) Past Drug Use History: None Reported - Past Family History Mother Family Medical History: Liver Disease Additional Family Medical History / Comment(s): Mother was an alcoholic. She of cirrhosis of the liver at age 60yrs. Father Family Medical History: Cancer, Coronary Artery Disease (CAD), Myocardial Infarction (RI) Additional Family Medical History / Comment(s): SKIN CA. Father of a RI at age 65 yrs. Brother(s) Family Medical History: Cancer Additional Family Medical History / Comment(s): LEUKEMIA, LYMPH NODE CA AND MULTIPLE MYELOMA. Medications and Allergies Home Medications Medication Instructions Recorded Confirmed Type Primidone [Mysoline] 100 mg PO DAILY 12/20/17 05/19/24 History Atorvastatin [Lipitor] 80 mg PO HS #30 tab 08/06/19 05/19/24 Rx Memantine [Namenda] 10 mg PO BID 02/17/20 05/19/24 History Pramipexole Di-HCl [Mirapex] 1.5 mg PO HS 02/17/20 05/19/24 History Pregabalin [Lyrica] 100 mg PO BID 03/10/21 05/19/24 History Sertraline [Zoloft] 200 mg PO DAILY 08/18/21 05/19/24 History Aspirin 81 mg PO DAILY tab 11/25/22 05/19/24 Rx HYDROcodone/APAP 5-325MG [[place] 1 tab PO Q6H PRN 02/27/23 05/19/24 History 5-325] Ibuprofen [Motrin] 800 mg PO TID PRN 02/17/24 05/19/24 History Metoprolol Succinate (ER) [Toprol 25 mg PO DAILY 02/17/24 05/19/24 History XL] Primidone [Mysoline] 150 mg PO HS 02/17/24 05/19/24 History Furosemide [Lasix] 40 mg PO DAILY #0 02/18/24 05/19/24 Rx Tamsulosin [Flomax] 0.4 mg PO DAILY 05/19/24 05/19/24 History hydrALAZINE HCL [Apresoline] 25 mg PO TID 05/19/24 05/19/24 History Allergies Allergy/AdvReac Type Severity Reaction Status Date / Time No Known Allergies Allergy Verified 05/19/24 13:05 Physical Exam Vitals: Vital Signs Temp Pulse Pulse Resp BP BP Pulse Ox 05/19/24 12:32 86 19 148/78 94 L 05/19/24 11:11 97.5 F L 68 19 121/76 95 05/19/24 08:48 67 19 05/19/24 08:47 97.5 F L 67 19 94/56 95 05/19/24 02:49 97.6 F 86 20 94/78 95 05/19/24 02:19 79 18 91/57 94 L 05/19/24 01:40 76 18 87/51 05/18/24 23:08 98.4 F 97 18 082/63 94 L 05/18/24 21:00 102.7 F H 115 H 20 105/69 92 L 05/18/24 18:18 102.8 F H 129 H 18 138/86 93 L Intake and Output 05/18/24 05/19/24 05/19/24 22:59 06:59 14:59 Intake Total 0 128 Balance 0 128 Intake: IV 10 Invasive Line 2 10 Oral 0 118 Other: Voiding Method Toilet Indwelling Catheter Weight 99.79 kg 99.79 kg Results CBC & Chem 7: 05/19/24 14:13 05/18/24 19:17 Labs: Abnormal Lab Results - Last 24 Hours (Table) 05/18/24 05/18/24 05/18/24 Range/Units 19:17 19:17 19:17 Lymphocytes # 0.3 L (1.0-4.8) k/uL Glucose 127 H (74-99) mg/dL Plasma Lactic Acid Sudheer 4.9 H* (0.7-2.0) mmol/L Urine Protein (Negative) Urine Ketones (Negative) Urine Blood (Negative) Ur Leukocyte Esterase (Negative) Urine RBC (0-5) /hpf Urine WBC (0-5) /hpf Urine Bacteria (None) /hpf Urine Mucus (None) /hpf 05/18/24 Range/Units 19:17 Lymphocytes # (1.0-4.8) k/uL Glucose (74-99) mg/dL Plasma Lactic Acid Sudheer (0.7-2.0) mmol/L Urine Protein 1+ H (Negative) Urine Ketones 1+ H (Negative) Urine Blood Moderate H (Negative) Ur Leukocyte Esterase Large H (Negative) Urine RBC 17 H (0-5) /hpf Urine WBC >182 H (0-5) /hpf Urine Bacteria Occasional H (None) /hpf Urine Mucus Rare H (None) /hpf Microbiology - Last 24 Hours (Table) 05/18/24 19:10 Blood Culture Gram Stain - Preliminary Blood Blood Culture - Preliminary Molecular ID 05/18/24 19:25 Blood Culture Gram Stain - Preliminary Blood Thrombosis Risk Factor Assmnt - Choose All That Apply Any of the Below Risk Factors Present?: Yes Each Factor Represents 1 point: Obesity (BMI >25), Sepsis (< 1month) Other Risk Factors: Yes Each Risk Factor Represents 2 Points: Age 61-74 years, Major surgery Other congenital or acquired thrombophilia - If yes, enter type in comment: No Thrombosis Risk Factor Assessment Total Risk Factor Score: 6 Thrombosis Risk Factor Assessment Level: High Risk
[2024-05-19] MEDS: SODIUM CHLORIDE 0.45% 1,000 ML IV SCH (18:00)
[2024-05-19] MEDS: HEPARIN SODIUM 1,000 UN/ML (10ML VL) IV PRN (19:48)
[2024-05-19] MEDS: ATORVASTATIN 80 MG TAB PO SCH (20:03)
[2024-05-19] MEDS: MEMANTINE 10 MG TAB PO SCH (20:03)
[2024-05-19] MEDS: SERTRALINE 100 MG TAB PO SCH (20:03)
[2024-05-19] MEDS ORDERED: amLODIPine 5 MG TAB PO SCH (21:00)
[2024-05-19] MEDS ORDERED: LOSARTAN 25 MG TAB PO SCH (21:00)
[2024-05-19] MEDS: tiZANidine 4 MG TAB PO PRN (21:15)
[2024-05-19] MEDS: PRAMIPEXOLE 0.5 MG TAB PO SCH (21:16)
[2024-05-19] MEDS: ACETAMINOPHEN TAB 325 MG TAB PO PRN (23:37)
[2024-05-20 03:03] LABS: Basophils % (A) 0 %; Eosinophils # (A) 0.1 k/uL (0-0.7); Eosinophils % (A) 1 %; HCT 33.1 % (39.0-53.0); HGB 10.5 gm/dL (13.0-17.5); Lymphocytes % (A) 12 %; MCH 29.6 pg (25.0-35.0); MCHC 31.8 g/dL (31.0-37.0); Mean Platelet Volume 8.1; Monocytes # (A) 0.6 k/uL (0-1.0); Monocytes % (A) 7 %; Neutrophils # (A) 6.3 k/uL (1.3-7.7); Neutrophils % (A) 77 %; Platelet Count 122 k/uL (150-450); RBC 3.56 m/uL (4.30-5.90); RDW 15.5 % (11.5-15.5); WBC 8.1 k/uL (3.8-10.6)
[2024-05-20 03:18] LABS: INR 1.3 (<1.2); Prothrombin Time 13.7 sec (10.0-12.5)
[2024-05-20 03:44] LABS: ALT 20 U/L (4-49); AST 25 U/L (17-59); African American GFR (CKD) >90 (>60 ml/min/1.73 sqM); Albumin 2.6 g/dL (3.5-5.0); Alkaline Phosphatase 72 U/L (38-126); Anion Gap 6 mmol/L; Blood Urea Nitrogen 18 mg/dL (9-20); Calcium 7.6 mg/dL (8.4-10.2); Carbon Dioxide 20 mmol/L (22-30); Chloride 110 mmol/L (98-107); Glucose 112 mg/dL (74-99); Non-African American GFR(CKD) >90 (>60 ml/min/1.73 sqM); Potassium 3.3 mmol/L (3.5-5.1); Sodium 136 mmol/L (137-145); Total Bilirubin 0.4 mg/dL (0.2-1.3); Total Protein 5.1 g/dL (6.3-8.2)
[2024-05-20] MEDS: TAMSULOSIN 0.4 MG CAP.ER.24H PO SCH (08:57)
[2024-05-20 11:51] VITALS: BMI 28.6
--- NOTE | 2024-05-20 13:05 | P.PN ---
Subjective Progress Note Date: 05/20/24 Chief complaint: Chest pain History of present illness: History of present illness: Patient is a pleasant 69-year-old male with significant past medical history of A-fib, CAD status post PCI, hypertension, tremors, restless leg syndrome, Parkinson's, dementia who presented with fevers, vomiting, hypotension. He does see Dr. Menendez in the office. Cardiology was consulted today due to new onset of chest pain and left arm numbness with shortness of breath. He reports that the symptoms started approximately 30 minutes ago and were consistent worse when he had a prior MD back in 2012. He was given nitroglycerin and this did resolve the symptoms. Blood pressure is currently elevated 154/85. EKG did show sinus rhythm with no significant ST or T wave changes. He had recent neck surgery 2 weeks ago, he was having urinary retention after that and went home with a Pulido catheter, this was removed a couple days ago and has been having issues with urinary retention. He reports he had a fever of 103 and began vomiting yesterday. He was diagnosed with sepsis. He had missed a few doses of his home medications. 05/20 Patient is seen today in follow-up. No complaints of chest pain. He has been off hypertensive medications. Blood pressure 119/60, heart rate 65, pulse ox 95% on 2 L nasal cannula. He is on a heparin drip which we will plan to continue for a full 48 hours. Repeat blood work reveals WBC 8.1, hemoglobin 10.5. Platelet count 122. INR 1.3. Sodium 136, potassium 3.3, creatinine 0.77. Repeat troponins are 0.031 and 0.043. Blood cultures are positive for Enterobacter cloacae. PHYSICAL EXAMINATION: This is a 69-year-old male in no apparent distress at the time of my examination. HEENT: Head is atraumatic, normocephalic. Pupils are equal, round. Sclerae anicteric. Conjunctivae are clear. Mucous membranes of the mouth are moist. Neck is supple. There is no jugular venous distention. No carotid bruit is heard. CHEST EXAMINATION: Lungs are clear to auscultation. No chest wall tenderness is noted on palpation or with deep breathing. HEART EXAMINATION: Heart regular rate and rhythm. S1, S2 heard. No murmurs, gallops or rub. ABDOMEN: Soft, nontender. Bowel sounds are heard. EXTREMITIES: 2+ peripheral pulses with no evidence of peripheral edema and no calf tenderness noted. NEUROLOGIC EXAMINATION: Patient is awake, alert and oriented x3. IMPRESSION AND PLAN: Chest pain CAD status post PCI Hypertension Atrial fibrillation, paroxysmal Bacteremia PLAN: Continue heparin drip for full 48 hours Continue patient's on aspirin 81 mg daily, atorvastatin 80 mg at bedtime, Toprol-XL 25 mg daily Noted that Lasix and hydralazine are currently on hold We will follow. Nurse practitioner note has been reviewed, I agree with documented findings and plan of care. Patient was seen and examined. Objective - Vital Signs Vital signs: Vital Signs Temp 99.2 F 05/19/24 23:36 Pulse 65 05/20/24 08:00 Resp 16 05/20/24 08:00 BP 119/60 05/20/24 08:00 Pulse Ox 95 05/20/24 08:00 FiO2 Intake & Output 05/19/24 05/20/24 05/20/24 18:59 06:59 18:59 Intake Total 256 65.716 170.379 Output Total 675 500 Balance -419 -434.284 170.379 Weight 101.1 kg Intake: IV 20 10 Invasive Line 2 20 10 Intake, IV Titration 55.716 170.379 Amount Heparin Sod,Pork in 0.45% 55.716 170.379 NaCl 25,000 unit In 0.45 % NaCl 1 250ml.bag @ 10 UNITS/KG/HR 9.979 mls/hr IV .Q24H [facility] Rx#: [id number] Oral 236 0 Output: Urine 675 500 Other: Voiding Method Indwelling Catheter Indwelling Catheter - Labs CBC & Chem 7: 05/20/24 02:22 05/20/24 02:22 Labs: Abnormal Lab Results - Last 24 Hours (Table) 05/19/24 05/19/24 05/19/24 Range/Units 14:13 14:13 18:41 RBC 3.59 L (4.30-5.90) m/uL Hgb 11.0 L (13.0-17.5) gm/dL Hct 32.9 L (39.0-53.0) % Plt Count 125 L (150-450) k/uL Neutrophils # 9.3 H (1.3-7.7) k/uL Lymphocytes # 0.5 L (1.0-4.8) k/uL PT 14.2 H (10.0-12.5) sec INR 1.4 H (<1.2) APTT 30.7 H 33.2 H (22.0-30.0) sec Sodium (137-145) mmol/L Potassium (3.5-5.1) mmol/L Chloride (98-107) mmol/L Carbon Dioxide (22-30) mmol/L Glucose (74-99) mg/dL Calcium (8.4-10.2) mg/dL Troponin I (0.000-0.034) ng/mL Total Protein (6.3-8.2) g/dL Albumin (3.5-5.0) g/dL Procalcitonin (0.02-0.09) ng/mL 05/19/24 05/20/24 05/20/24 Range/Units 21:55 02:22 02:22 RBC (4.30-5.90) m/uL Hgb (13.0-17.5) gm/dL Hct (39.0-53.0) % Plt Count (150-450) k/uL Neutrophils # (1.3-7.7) k/uL Lymphocytes # (1.0-4.8) k/uL PT (10.0-12.5) sec INR (<1.2) APTT (22.0-30.0) sec Sodium 136 L (137-145) mmol/L Potassium 3.3 L (3.5-5.1) mmol/L Chloride 110 H (98-107) mmol/L Carbon Dioxide 20 L (22-30) mmol/L Glucose 112 H (74-99) mg/dL Calcium 7.6 L (8.4-10.2) mg/dL Troponin I 0.043 H* (0.000-0.034) ng/mL Total Protein 5.1 L (6.3-8.2) g/dL Albumin 2.6 L (3.5-5.0) g/dL Procalcitonin 2.96 H (0.02-0.09) ng/mL 05/20/24 05/20/24 05/20/24 Range/Units 02:22 02:22 02:22 RBC 3.56 L (4.30-5.90) m/uL Hgb 10.5 L (13.0-17.5) gm/dL Hct 33.1 L (39.0-53.0) % Plt Count 122 L (150-450) k/uL Neutrophils # (1.3-7.7) k/uL Lymphocytes # (1.0-4.8) k/uL PT 13.7 H (10.0-12.5) sec INR 1.3 H (<1.2) APTT 54.6 H (22.0-30.0) sec Sodium (137-145) mmol/L Potassium (3.5-5.1) mmol/L Chloride (98-107) mmol/L Carbon Dioxide (22-30) mmol/L Glucose (74-99) mg/dL Calcium (8.4-10.2) mg/dL Troponin I (0.000-0.034) ng/mL Total Protein (6.3-8.2) g/dL Albumin (3.5-5.0) g/dL Procalcitonin (0.02-0.09) ng/mL Microbiology - Last 24 Hours (Table) 05/18/24 19:17 Urine Culture - Preliminary Urine,Voided Gram Neg Bacilli 05/18/24 19:25 Blood Culture Gram Stain - Preliminary Blood Blood Culture - Preliminary Enterobacter cloacae Complex 05/18/24 19:10 Blood Culture Gram Stain - Preliminary Blood Blood Culture - Preliminary Enterobacter cloacae Complex Molecular ID
--- NOTE | 2024-05-20 13:52 | P.PN ---
Progress Note - Text Progress Note Date: 05/20/24 Chief Complaint: Fever pelvic pain 69-year-old patient of Dr. Gutierrez. Chronic stable medical conditions include some cognitive impairment, GERD, hyperlipidemia, hypertension, early Parkinson's versus essential tremor, , obstructive sleep apnea does not use CPAP, irritable bowel syndrome, BPH hiatal hernia. coronary artery disease with stent. Patient recently underwent cervical spine surgery at [facility]. Patient had urinary retention and a Pulido catheter had to be placed. Surgery otherwise went well. On May 16 Pulido catheter was discontinued. Patient started off with chills rigors deep pelvic pain dysuria yesterday. Tired rundown. Patient had a fever of 102.8 today in the ER with sepsis. Blood pressure also dropped down to around 90 systolic around midnight. This morning patient did have episode of chest pain EKG was ordered. Is unremarkable. Cardiology was also consulted. Earlier today blood cultures coming back positive for Enterobacter cloacae. Patient was initially given IV ceftriaxone in the ER. Was switched over to IV cefepime per pharmacy this morning. Patient rather tired. Decreased appetite May 20: Resting in bed. No further chest pain. Patient felt a possible type II OR from hypotension from sepsis. Precipitating hemodynamic mismatch. Remains on IV heparin today. Getting IV cefepime. Blood and urine culture both growing Enterobacter cloacae. Active Medications Acetaminophen (Acetaminophen Tab 325 Mg Tab) 650 mg PO Q6HR PRN PRN Reason: Mild Pain or Fever > 100.5 Last Admin: 05/19/24 23:37 Dose: 650 mg Hydrocodone Bitart/Acetaminophen (Hydrocodone/Apap 5-325mg 1 Each Tab) 1 each PO TID PRN PRN Reason: Pain Aspirin (Aspirin 81 Mg) 81 mg PO DAILY [facility] Last Admin: 05/20/24 08:57 Dose: 81 mg Atorvastatin Calcium (Atorvastatin 80 Mg Tab) 80 mg PO HS [facility] Last Admin: 05/19/24 20:03 Dose: 80 mg Calcium Carbonate/Glycine (Calcium Carbonate 500 Mg Chewable) 1,000 mg PO Q4HR PRN PRN Reason: Dyspepsia Heparin Sodium (Porcine) (Heparin Sodium 1,000 Un/Ml (10ml Vl)) 0 unit IV PER PROTOCOL PRN; Protocol PRN Reason: Low PTT Last Admin: 05/19/24 19:48 Dose: 4,989 unit Cefepime HCl 2 gm/ Sodium (Chloride) 100 mls @ 25 mls/hr IVPB Q8H [facility]; Protocol Last Admin: 05/20/24 12:20 Dose: 25 mls/hr Heparin Sodium/Sodium Chloride (25,000 unit/ Sodium Chloride) 250 mls @ 9.979 mls/hr IV .Q24H [facility]; Protocol Last Admin: 05/20/24 08:57 Dose: 13 units/kg/hr, 12.973 mls/hr Sodium Chloride (Saline 0.45%) 1,000 mls @ 125 mls/hr IV .Q8H [facility] Last Admin: 05/20/24 04:57 Dose: 125 mls/hr Ibuprofen (Ibuprofen 400 Mg Tab) 400 mg PO Q6HR PRN PRN Reason: Mild Pain or Fever > 100.5 Lactulose (Lactulose 20 Gm/30 Ml Cup) 20 gm PO DAILY PRN PRN Reason: Constipation Lorazepam (Lorazepam 2 Mg/Ml Inj) 0.5 mg IV Q6HR PRN PRN Reason: Anxiety Memantine (Memantine 10 Mg Tab) 10 mg PO BID [facility] Last Admin: 05/20/24 08:57 Dose: 10 mg Metoprolol Succinate (Metoprolol Succinate (Er) 25 Mg Tab.Er.24h) 25 mg PO DAILY [facility] Last Admin: 05/20/24 08:57 Dose: 25 mg Morphine Sulfate (Morphine Sulfate 4 Mg/Ml Syringe) 4 mg IV Q4HR PRN PRN Reason: Severe Pain (Scale 7 to 10) Last Admin: 05/19/24 12:46 Dose: 4 mg Naloxone HCl (Naloxone 0.4 Mg/Ml 1 Ml Vial) 0.2 mg IV Q2M PRN PRN Reason: Opioid Reversal Ondansetron HCl (Ondansetron 4 Mg/2 Ml Vial) 4 mg IVP Q8HR PRN PRN Reason: Nausea And Vomiting Pramipexole Dihydrochloride (Pramipexole 0.5 Mg Tab) 1.5 mg PO HS [facility] Last Admin: 05/19/24 21:16 Dose: 1.5 mg Pregabalin (Pregabalin 100 Mg Cap) 100 mg PO BID [facility] Last Admin: 05/20/24 08:57 Dose: 100 mg Primidone (Primidone 50 Mg Tab) 150 mg PO BID@0900,2100 [facility] Last Admin: 05/20/24 08:57 Dose: 150 mg Primidone (Primidone 50 Mg Tab) 100 mg PO DAILY@1500 [facility] Last Admin: 05/19/24 13:05 Dose: 100 mg Sertraline HCl (Sertraline 100 Mg Tab) 200 mg PO HS [facility] Last Admin: 05/19/24 20:03 Dose: 200 mg Tamsulosin HCl (Tamsulosin 0.4 Mg Cap.Er.24h) 0.4 mg PO DAILY [facility] Last Admin: 05/20/24 08:57 Dose: 0.4 mg Temazepam (Temazepam 15 Mg Cap) 15 mg PO HS PRN PRN Reason: Insomnia Tizanidine HCl (Tizanidine 4 Mg Tab) 2 mg PO TID PRN PRN Reason: Muscle Spasm Last Admin: 05/19/24 21:15 Dose: 2 mg Past medical history to include: Coronary artery disease with stent, cognitive impairment, GERD, hyperlipidemia, hypertension, Parkinson disease, BPH, obstructive sleep apnea does not use CPAP, hiatal hernia Elizabeth fundoplication depression Social history: lives with no smoking. Stopped drinking alcohol in 2004. Prior to that used to drink every day On examination: VITAL SIGNS: Afebrile, 65, 18, 119/60, 95% 2 L GENERAL APPEARANCE: Lying in bed, less tired appearing today. HEENT: Normal external appearance of nose and ear. Oral cavity normal EYES: Pupils equal. Conjunctiva normal. NECK: JVD not raised. Mass not palpable. RESPIRATORY: Respiratory effort . Lungs decreased breath sounds, CARDIOVASCULAR: First and second sounds normal. No edema. ABDOMEN: Soft. Liver and spleen not palpable. No tenderness. No mass palpable. PSYCHIATRY: Alert and oriented x3. Mood and affect a bit anxious INVESTIGATIONS, reviewed in the clinical context: Blood culture [May 18] positive for Enterobacter cloacae Urine culture [May 18] showing gram-negative bacilli May 20: White count 8.1 hemoglobin 10.5 platelets 122 sodium 136 creatinine 0.77. Procalcitonin 2.96 May 19: White count 10.5 hemoglobin 11 platelets 125 Troponin I 0.030, 0.031, 0.043 May 18: White count 4.7 hemoglobin 13.8 platelet 168 sodium 138 potassium 3.6 creatinine 0.85 lactic acid 4.9 Influenza type A, type B, RSV, COVID-19: PCR not detected UA positive for ketones 1+ leukoesterase EKG tracing personally reviewed by me-normal sinus rhythm Chest x-ray film personally reviewed by me-nonspecific findings questionable infiltrate Assessment and plan: -Acute UTI with cystitis secondary to Pulido catheter that was placed perioperative therapy removed on May 16.: Causing severe sepsis Blood cultures positive for Enterobacter cloacae. IV cefepime -Severe sepsis secondary to UTI IV fluids. IV cefepime -Anterior chest wall pain. Acute type II OR from hemodynamic mismatch from hypotension Continue IV heparin. On aspirin. 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 Continue current medication treatment plan. Continue IV heparin IV antibiotics. Replace potassium Past Medical History Past Medical History: Coronary Artery Disease (CAD), Chest Pain / Angina, Heart Failure, Dementia, GERD/Reflux, Hyperlipidemia, Hypertension, Myocardial Infarction (OR), Neurologic Disorder, Pneumonia, Prostate Disorder, Renal Disease, Skin Disorder, Sleep Apnea/CPAP/BIPAP Additional Past Medical History / Comment(s): early parkinson's with essential tremors, "lewy body dementia" R nephrolithiasis with surgery, EDITH with no CPAP, Irritable Bowel Syndrome diarrhea off and on, pneumonia/bronchitis, BPH, blood in stool-EGD/colonoscopy were normal, past hiatal hernia(sx), past falls., kidney failure, Last Myocardial Infarction Date:: 06/09/13 History of Any Multi-Drug Resistant Organisms: None Reported Past Surgical History: Back Surgery, Heart Catheterization, Heart Catheterization With Stent, Hernia Repair Additional Past Surgical History / Comment(s): 05/2013 stent to LAD and then a cardiac cath which showed stent patent, Recent R kidney stone removal, 03/19/15 Laparoscopic Elizabeth fundlaplication. SKIN GRAFTS CHEST & BACK FROM [place]T AT 13 YRS OLD., COLONOSCOPY. EGD, L lazy eye surgery as toddler. c3 c4 fusion, c4 c5 fusion. Past Anesthesia/Blood Transfusion Reactions: No Reported Reaction Additional Past Anesthesia/Blood Transfusion Reaction / Comment(s): Pt received blood in 1967 without reaction. Date of Last Stent Placement:: 12/2017 Past Psychological History: Bipolar, Depression Additional Psychological History / Comment(s): Pt lives with his . He has depression but states medication for this is working. He is normally independent. Smoking Status: Never smoker Past Alcohol Use History: None Reported Additional Past Alcohol Use History / Comment(s): Pt quit drinking alcohol in 2004( drank almost on daily basis) Past Drug Use History: None Reported
--- NOTE | 2024-05-21 07:39 | P.PN ---
Subjective Progress Note Date: 05/21/24 The patient is in the hospital with a uti, enterobacter. He had a cervical fusion in [place] recently He had difficulty voiding post op in [place]. He had a cath placed here but his bladder scan was only 63. He is afebrile. He feels better today Objective - Vital Signs Vital signs: Vital Signs Temp 97.8 F 05/20/24 23:38 Pulse 56 L 05/21/24 04:24 Resp 20 05/21/24 04:24 BP 146/80 05/21/24 04:24 Pulse Ox 91 L 05/21/24 04:24 FiO2 Intake & Output 05/20/24 05/20/24 05/21/24 06:59 18:59 06:59 Intake Total 65.716 880.379 10 Output Total 500 500 400 Balance -434.284 380.379 -390 Weight 101.1 kg 101.1 kg 102.1 kg Intake: IV 10 10 10 Invasive Line 2 10 10 10 Intake, IV Titration 55.716 170.379 Amount Heparin Sod,Pork in 0.45% 55.716 170.379 NaCl 25,000 unit In 0.45 % NaCl 1 250ml.bag @ 10 UNITS/KG/HR 9.979 mls/hr IV .Q24H [facility] Rx#: [id number] Oral 700 Output: Urine 500 500 400 Other: Voiding Method Indwelling Catheter Indwelling Catheter Indwelling Catheter - Labs CBC & Chem 7: 05/20/24 02:22 05/20/24 02:22 Labs: Abnormal Lab Results - Last 24 Hours (Table) 05/20/24 Range/Units 02:22 Procalcitonin 2.96 H (0.02-0.09) ng/mL Microbiology - Last 24 Hours (Table) 05/18/24 19:17 Urine Culture - Preliminary Urine,Voided Gram Neg Bacilli 05/18/24 19:25 Blood Culture Gram Stain - Preliminary Blood Blood Culture - Preliminary Enterobacter cloacae Complex 05/18/24 19:10 Blood Culture Gram Stain - Preliminary Blood Blood Culture - Preliminary Enterobacter cloacae Complex Molecular ID Assessment and Plan Assessment: Impression: Uti being treated. Urinary frequency secondary to uti. Post op urine retention Recommendation: the catheter can be removed prior to discharge. we can fu in the office
[2024-05-21] MEDS: HYDROcodone/APAP 5-325MG 1 EACH TAB PO PRN (09:13)
[2024-05-21 12:42] LABS: Basophils % (A) 1 %; Eosinophils # (A) 0.2 k/uL (0-0.7); Eosinophils % (A) 4 %; HCT 34.2 % (39.0-53.0); HGB 10.7 gm/dL (13.0-17.5); Lymphocytes # (A) 0.7 k/uL (1.0-4.8); Lymphocytes % (A) 15 %; MCH 29.4 pg (25.0-35.0); MCHC 31.3 g/dL (31.0-37.0); MCV 94.1 fL (80.0-100.0); Monocytes # (A) 0.2 k/uL (0-1.0); Monocytes % (A) 5 %; Neutrophils # (A) 3.1 k/uL (1.3-7.7); Neutrophils % (A) 72 %; Platelet Count 125 k/uL (150-450); RBC 3.63 m/uL (4.30-5.90); RDW 15.7 % (11.5-15.5); WBC 4.4 k/uL (3.8-10.6)
[2024-05-21 13:40] LABS: Sodium 133 mmol/L (137-145)
[2024-05-21 13:42] LABS: African American GFR (CKD) >90 (>60 ml/min/1.73 sqM); Anion Gap 1 mmol/L; Blood Urea Nitrogen 16 mg/dL (9-20); Carbon Dioxide 21 mmol/L (22-30); Chloride 111 mmol/L (98-107); Glucose 138 mg/dL (74-99); Non-African American GFR(CKD) >90 (>60 ml/min/1.73 sqM); Potassium 3.6 mmol/L (3.5-5.1)
--- NOTE | 2024-05-21 14:15 | P.PN ---
Subjective Progress Note Date: 05/21/24 Chief complaint: Chest pain History of present illness: History of present illness: Patient is a pleasant 69-year-old male with significant past medical history of A-fib, CAD status post PCI, hypertension, tremors, restless leg syndrome, Parkinson's, dementia who presented with fevers, vomiting, hypotension. He does see Dr. Menendez in the office. Cardiology was consulted today due to new onset of chest pain and left arm numbness with shortness of breath. He reports that the symptoms started approximately 30 minutes ago and were consistent worse when he had a prior SD back in 2012. He was given nitroglycerin and this did resolve the symptoms. Blood pressure is currently elevated 154/85. EKG did show sinus rhythm with no significant ST or T wave changes. He had recent neck surgery 2 weeks ago, he was having urinary retention after that and went home with a Pulido catheter, this was removed a couple days ago and has been having issues with urinary retention. He reports he had a fever of 103 and began vomiting yesterday. He was diagnosed with sepsis. He had missed a few doses of his home medications. 05/20 Patient is seen today in follow-up. No complaints of chest pain. He has been off hypertensive medications. Blood pressure 119/60, heart rate 65, pulse ox 95% on 2 L nasal cannula. He is on a heparin drip which we will plan to continue for a full 48 hours. Repeat blood work reveals WBC 8.1, hemoglobin 10.5. Platelet count 122. INR 1.3. Sodium 136, potassium 3.3, creatinine 0.77. Repeat troponins are 0.031 and 0.043. Blood cultures are positive for Enterobacter cloacae. 05/21 Patient is seen today in follow-up. Heparin drip will be discontinued. Regarding anticoagulation, patient states he was on Xarelto in the past but he could not afford it. Reviewed previous records and there is no absolute evidence of atrial fibrillation. His blood pressure is better today. Will make some changes to his blood pressure medications as these have been on hold due to hypotension. Blood pressure 123/74, heart rate 53, pulse ox 95% on room air, he has been afebrile for greater than 24 hours. Repeat blood work reveals WBC 4.4, hemoglobin 10.7 platelet count 125. Sodium 133. Stool for occult blood was negative. PHYSICAL EXAMINATION: This is a 69-year-old male in no apparent distress at the time of my examination. HEENT: Head is atraumatic, normocephalic. Pupils are equal, round. Sclerae anicteric. Conjunctivae are clear. Mucous membranes of the mouth are moist. Neck is supple. There is no jugular venous distention. No carotid bruit is heard. CHEST EXAMINATION: Lungs are clear to auscultation. No chest wall tenderness is noted on palpation or with deep breathing. HEART EXAMINATION: Heart regular rate and rhythm. S1, S2 heard. No murmurs, gallops or rub. ABDOMEN: Soft, nontender. Bowel sounds are heard. EXTREMITIES: 2+ peripheral pulses with no evidence of peripheral edema and no calf tenderness noted. NEUROLOGIC EXAMINATION: Patient is awake, alert and oriented x3. IMPRESSION AND PLAN: Chest pain, type II non-ST elevated SD due to sepsis CAD status post PCI Hypertension Possible atrial fibrillation, paroxysmal Bacteremia PLAN: Discontinue heparin drip Continue patient's on aspirin 81 mg daily, atorvastatin 40 mg at bedtime, Toprol-XL 25 mg daily Start patient on losartan 25 mg daily No need to resume Lasix at this time and no plan to resume hydralazine Hold on anticoagulation as no definite evidence of atrial fibrillation We will follow. Nurse practitioner note has been reviewed, I agree with documented findings and plan of care. Patient was seen and examined. Objective - Vital Signs Vital signs: Vital Signs Temp 98.1 F 05/21/24 08:00 Pulse 53 L 05/21/24 12:44 Resp 16 05/21/24 12:44 BP 123/74 05/21/24 12:44 Pulse Ox 95 05/21/24 12:44 FiO2 Intake & Output 05/20/24 05/21/24 05/21/24 18:59 06:59 18:59 Intake Total 880.379 10 10 Output Total 500 400 Balance 380.379 -390 10 Weight 101.1 kg 102.1 kg Intake: IV 10 10 10 Invasive Line 2 10 10 10 Intake, IV Titration 170.379 Amount Heparin Sod,Pork in 0.45% 170.379 NaCl 25,000 unit In 0.45 % NaCl 1 250ml.bag @ 10 UNITS/KG/HR 9.979 mls/hr IV .Q24H [facility] Rx#: [id number] Oral 700 0 Output: Urine 500 400 Other: Voiding Method Indwelling Catheter Indwelling Catheter Indwelling Catheter - Labs CBC & Chem 7: 05/21/24 12:29 05/21/24 12:29 Labs: Abnormal Lab Results - Last 24 Hours (Table) 05/21/24 05/21/24 05/21/24 Range/Units 08:40 12:29 12:29 RBC 3.63 L (4.30-5.90) m/uL Hgb 10.7 L (13.0-17.5) gm/dL Hct 34.2 L (39.0-53.0) % RDW 15.7 H (11.5-15.5) % Plt Count 125 L (150-450) k/uL Lymphocytes # 0.7 L (1.0-4.8) k/uL APTT 34.7 H (22.0-30.0) sec Sodium 133 L (137-145) mmol/L Microbiology - Last 24 Hours (Table) 05/18/24 19:17 Urine Culture - Final Urine,Voided Enterobacter cloacae
[2024-05-21] MEDS: LOSARTAN 25 MG TAB PO SCH (16:23)
--- NOTE | 2024-05-21 16:49 | XR ---
EXAMINATION TYPE: XR chest 2V DATE OF EXAM: 05/21/2024 COMPARISON: 05/18/2024 HISTORY: 69-year-old male wheezing TECHNIQUE: AP and lateral views FINDINGS: Heart borderline enlarged. Mild elongation/tortuosity of the thoracic aorta with atherosclerotic arch calcifications. No consolidation or pleural effusion. IMPRESSION: Borderline heart size. No acute process seen.
--- NOTE | 2024-05-21 18:01 | P.PN ---
Progress Note - Text Progress Note Date: 05/21/24 Chief Complaint: Fever pelvic pain 69-year-old patient of Dr. Gutierrez. Chronic stable medical conditions include some cognitive impairment, GERD, hyperlipidemia, hypertension, early Parkinson's versus essential tremor, , obstructive sleep apnea does not use CPAP, irritable bowel syndrome, BPH hiatal hernia. coronary artery disease with stent. Patient recently underwent cervical spine surgery at [facility]. Patient had urinary retention and a Pulido catheter had to be placed. Surgery otherwise went well. On May 16 Pulido catheter was discontinued. Patient started off with chills rigors deep pelvic pain dysuria yesterday. Tired rundown. Patient had a fever of 102.8 today in the ER with sepsis. Blood pressure also dropped down to around 90 systolic around midnight. This morning patient did have episode of chest pain EKG was ordered. Is unremarkable. Cardiology was also consulted. Earlier today blood cultures coming back positive for Enterobacter cloacae. Patient was initially given IV ceftriaxone in the ER. Was switched over to IV cefepime per pharmacy this morning. Patient rather tired. Decreased appetite May 20: Resting in bed. No further chest pain. Patient felt a possible type II MA from hypotension from sepsis. Precipitating hemodynamic mismatch. Remains on IV heparin today. Getting IV cefepime. Blood and urine culture both growing Enterobacter cloacae. May 21: In bed. Comfortable. Eating about 75%. IV heparin discontinued. Pulido catheter remain in place. Trial of DC Pulido prior to discharge. Repeat blood cultures done today. ID consulted. Remains on IV cefepime. Active Medications Acetaminophen (Acetaminophen Tab 325 Mg Tab) 650 mg PO Q6HR PRN PRN Reason: Mild Pain or Fever > 100.5 Last Admin: 05/20/24 21:00 Dose: 650 mg Hydrocodone Bitart/Acetaminophen (Hydrocodone/Apap 5-325mg 1 Each Tab) 1 each PO TID PRN PRN Reason: Pain Last Admin: 05/21/24 09:13 Dose: 1 each Aspirin (Aspirin 81 Mg) 81 mg PO DAILY [facility]OR[facility] Last Admin: 05/21/24 09:13 Dose: 81 mg Atorvastatin Calcium (Atorvastatin 40 Mg Tab) 40 mg PO HS [facility]OR[facility] Calcium Carbonate/Glycine (Calcium Carbonate 500 Mg Chewable) 1,000 mg PO Q4HR PRN PRN Reason: Dyspepsia Cefepime HCl 2 gm/ Sodium (Chloride) 100 mls @ 25 mls/hr IVPB Q8H [facility]; Protocol Last Admin: 05/21/24 12:38 Dose: 25 mls/hr Ibuprofen (Ibuprofen 400 Mg Tab) 400 mg PO Q6HR PRN PRN Reason: Mild Pain or Fever > 100.5 Lactulose (Lactulose 20 Gm/30 Ml Cup) 20 gm PO DAILY PRN PRN Reason: Constipation Lorazepam (Lorazepam 2 Mg/Ml Inj) 0.5 mg IV Q6HR PRN PRN Reason: Anxiety Losartan Potassium (Losartan 25 Mg Tab) 25 mg PO DAILY [facility] Last Admin: 05/21/24 16:23 Dose: 25 mg Memantine (Memantine 10 Mg Tab) 10 mg PO BID [facility] Last Admin: 05/21/24 09:13 Dose: 10 mg Metoprolol Succinate (Metoprolol Succinate (Er) 25 Mg Tab.Er.24h) 25 mg PO DAILY [facility] Last Admin: 05/21/24 09:13 Dose: 25 mg Morphine Sulfate (Morphine Sulfate 4 Mg/Ml Syringe) 4 mg IV Q4HR PRN PRN Reason: Severe Pain (Scale 7 to 10) Last Admin: 05/19/24 12:46 Dose: 4 mg Naloxone HCl (Naloxone 0.4 Mg/Ml 1 Ml Vial) 0.2 mg IV Q2M PRN PRN Reason: Opioid Reversal Ondansetron HCl (Ondansetron 4 Mg/2 Ml Vial) 4 mg IVP Q8HR PRN PRN Reason: Nausea And Vomiting Pramipexole Dihydrochloride (Pramipexole 0.5 Mg Tab) 1.5 mg PO [facility] Last Admin: 05/20/24 21:00 Dose: 1.5 mg Pregabalin (Pregabalin 100 Mg Cap) 100 mg PO BID [facility] Last Admin: 05/21/24 09:13 Dose: 100 mg Primidone (Primidone 50 Mg Tab) 150 mg PO BID@0900,2100 [facility] Last Admin: 05/21/24 09:13 Dose: 150 mg Primidone (Primidone 50 Mg Tab) 100 mg PO DAILY@1500 [facility] Last Admin: 05/21/24 16:23 Dose: 100 mg Sertraline HCl (Sertraline 100 Mg Tab) 200 mg PO [facility] Last Admin: 05/20/24 21:01 Dose: 200 mg Tamsulosin HCl (Tamsulosin 0.4 Mg Cap.Er.24h) 0.4 mg PO DAILY [facility] Last Admin: 05/21/24 09:13 Dose: 0.4 mg Temazepam (Temazepam 15 Mg Cap) 15 mg PO HS PRN PRN Reason: Insomnia Tizanidine HCl (Tizanidine 4 Mg Tab) 2 mg PO TID PRN PRN Reason: Muscle Spasm Last Admin: 05/20/24 21:01 Dose: 2 mg Past medical history to include: Coronary artery disease with stent, cognitive impairment, GERD, hyperlipidemia, hypertension, Parkinson disease, BPH, obstructive sleep apnea does not use CPAP, hiatal hernia Elizabeth fundoplication depression Social history: lives with no smoking. Stopped drinking alcohol in 2004. Prior to that used to drink every day On examination: VITAL SIGNS: 98.1, 56, 16, 152/81, 95% room air GENERAL APPEARANCE: Lying in bed, comfortable HEENT: Normal external appearance of nose and ear. Oral cavity normal EYES: Pupils equal. Conjunctiva normal. NECK: JVD not raised. Mass not palpable. RESPIRATORY: Respiratory effort normal. Lungs decreased breath sounds, CARDIOVASCULAR: First and second sounds normal. No edema. ABDOMEN: Soft. Liver and spleen not palpable. No tenderness. No mass palpable. PSYCHIATRY: Alert and oriented x3. Mood and affect normal INVESTIGATIONS, reviewed in the clinical context: May 21: White count 4.4 hemoglobin 10.7 platelets 125 potassium 3.6 creatinine 0.66 Blood culture [May 18] positive for Enterobacter cloacae Urine culture [May 18] showing gram-negative bacilli May 20: White count 8.1 hemoglobin 10.5 platelets 122 sodium 136 creatinine 0.77. Procalcitonin 2.96 May 19: White count 10.5 hemoglobin 11 platelets 125 Troponin I 0.030, 0.031, 0.043 May 18: White count 4.7 hemoglobin 13.8 platelet 168 sodium 138 potassium 3.6 creatinine 0.85 lactic acid 4.9 Influenza type A, type B, RSV, COVID-19: PCR not detected UA positive for ketones 1+ leukoesterase EKG tracing personally reviewed by me-normal sinus rhythm Chest x-ray film personally reviewed by me-nonspecific findings questionable infiltrate Assessment and plan: -Acute UTI with cystitis secondary to Pulido catheter that was placed perioperative therapy removed on May 16.: Causing severe sepsis Blood cultures positive for Enterobacter cloacae. Repeat blood culture drawn today IV cefepime -Severe sepsis secondary to UTI: Better IV fluids. IV cefepime -Anterior chest wall pain. Acute type II MA from hemodynamic mismatch from hypotension: No further chest pain Received IV heparin. On aspirin. 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 Continue antibiotics. Repeat blood culture. Past Medical History Past Medical History: Coronary Artery Disease (CAD), Chest Pain / Angina, Heart Failure, Dementia, GERD/Reflux, Hyperlipidemia, Hypertension, Myocardial Infarction (MA), Neurologic Disorder, Pneumonia, Prostate Disorder, Renal Disease, Skin Disorder, Sleep Apnea/CPAP/BIPAP Additional Past Medical History / Comment(s): early parkinson's with essential tremors, "lewy body dementia" R nephrolithiasis with surgery, EDITH with no CPAP, Irritable Bowel Syndrome diarrhea off and on, pneumonia/bronchitis, BPH, blood in stool-EGD/colonoscopy were normal, past hiatal hernia(sx), past falls., kidney failure, Last Myocardial Infarction Date:: 06/09/13 History of Any Multi-Drug Resistant Organisms: None Reported Past Surgical History: Back Surgery, Heart Catheterization, Heart Catheterization With Stent, Hernia Repair Additional Past Surgical History / Comment(s): 05/2013 stent to LAD and then a cardiac cath which showed stent patent, Recent R kidney stone removal, 03/19/15 Laparoscopic Elizabeth fundlaplication. SKIN GRAFTS CHEST & BACK FROM BASSETT AT 13 YRS OLD., COLONOSCOPY. EGD, Jennifer rosales eye surgery as toddler. c3 c4 fusion, c4 c5 fusion. Past Anesthesia/Blood Transfusion Reactions: No Reported Reaction Additional Past Anesthesia/Blood Transfusion Reaction / Comment(s): Pt received blood in 1967 without reaction. Date of Last Stent Placement:: 12/2017 Past Psychological History: Bipolar, Depression Additional Psychological History / Comment(s): Pt lives with his . He has depression but states medication for this is working. He is normally independent. Smoking Status: Never smoker Past Alcohol Use History: None Reported Additional Past Alcohol Use History / Comment(s): Pt quit drinking alcohol in 2004( drank almost on daily basis) Past Drug Use History: None Reported
[2024-05-21] MEDS: ATORVASTATIN 40 MG TAB PO SCH (22:00)
--- NOTE | 2024-05-21 22:47 | P.CONS ---
History of Present Illness - Reason for Consult Consult date: 05/21/24 UTI and bacteremia Requesting physician: Pierce Chakraborty - Chief Complaint Weakness and difficulty urination x 2 days - History of Present Illness Patient is a 69-year-old male with a past medical history significant for coronary artery disease hypertension hyperlipidemia MT in this patient recently did have a cervical spine surgery patient mention after surgery he did have problems with the retention requiring Pulido catheter placement and the patient was discharged with a Pulido catheter patient subsequently did have follow-up with urology in outpatient setting and his Pulido catheter was discontinued 2 days after his description of Pulido catheter patient has developed difficulty urination/unable to urinate feeling weak did have a nausea and vomiting and generalized body ache with the symptoms the patient has been evaluated on presentation to the hospital patient was found to be febrile with a temperature of 102.8 F patient was not tachycardic or hypotensive at home mildly hypoxic currently on 2 L nasal cannula oxygen patient did have a white count of 4.7 creatinine 0.85 electrolyte has been normal liver enzymes normal urine has been positive influenza RSV COVID testing negative patient did have bloody urine culture positive for Enterobacter initially treated with the Rocephin and subsequent switch to cefepime infectious disease was consulted today for further management of antibiotic therapy patient did have a chest x- ray concerning for central venous congestion Review of Systems Positive point and negatives has been mentioned in the HPI, complete review of systems was performed and all other systems are negative Past Medical History Past Medical History: Coronary Artery Disease (CAD), Chest Pain / Angina, Heart Failure, Dementia, GERD/Reflux, Hyperlipidemia, Hypertension, Myocardial Infarction (MT), Neurologic Disorder, Pneumonia, Prostate Disorder, Renal Disea se, Skin Disorder, Sleep Apnea/CPAP/BIPAP Additional Past Medical History / Comment(s): early parkinson's with essential tremors, "lewy body dementia" R nephrolithiasis with surgery, EDITH with no CPAP, Irritable Bowel Syndrome diarrhea off and on, pneumonia/bronchitis, BPH, blood in stool-EGD/colonoscopy were normal, past hiatal hernia(sx), past falls., kidney failure, Last Myocardial Infarction Date:: 06/09/13 History of Any Multi-Drug Resistant Organisms: None Reported Past Surgical History: Back Surgery, Heart Catheterization, Heart Catheterization With Stent, Hernia Repair Additional Past Surgical History / Comment(s): 05/2013 stent to LAD and then a cardiac cath which showed stent patent, Recent R kidney stone removal, 03/19/15 Laparoscopic Elizabeth fundlaplication. SKIN GRAFTS CHEST & BACK FROM BASSETT AT 13 YRS OLD., COLONOSCOPY. EGD, L lazy eye surgery as toddler. c3 c4 fusion, c4 c5 fusion. Past Anesthesia/Blood Transfusion Reactions: No Reported Reaction Additional Past Anesthesia/Blood Transfusion Reaction / Comm: Pt received blood in 1967 without reaction. Date of Last Stent Placement:: 12/2017 Past Psychological History: Bipolar, Depression Smoking Status: Never smoker Past Alcohol Use History: None Reported Past Drug Use History: None Reported - Past Family History Mother Family Medical History: Liver Disease Additional Family Medical History / Comment(s): Mother was an alcoholic. She di ed of cirrhosis of the liver at age 60yrs. Father Family Medical History: Cancer, Coronary Artery Disease (CAD), Myocardial Infarction (MT) Additional Family Medical History / Comment(s): SKIN CA. Father of a MT at age 65 yrs. Brother(s) Family Medical History: Cancer Additional Family Medical History / Comment(s): LEUKEMIA, LYMPH NODE CA AND MULTIPLE MYELOMA. Medications and Allergies Home Medications Medication Instructions Recorded Confirmed Type Primidone [Mysoline] 100 mg PO DAILY 12/20/17 05/19/24 History Memantine [Namenda] 10 mg PO BID 02/17/20 05/19/24 History Pramipexole Di-HCl [Mirapex] 1.5 mg PO HS 02/17/20 05/19/24 History Pregabalin [Lyrica] 100 mg PO BID 03/10/21 05/19/24 History Sertraline [Zoloft] 200 mg PO DAILY 08/18/21 05/19/24 History Aspirin 81 mg PO DAILY tab 11/25/22 05/19/24 Rx HYDROcodone/APAP 5-325MG [[place] 1 tab PO Q6H PRN 02/27/23 05/19/24 History 5-325] Metoprolol Succinate (ER) [Toprol 25 mg PO DAILY 02/17/24 05/19/24 History XL] Primidone [Mysoline] 150 mg PO HS 02/17/24 05/19/24 History Tamsulosin [Flomax] 0.4 mg PO DAILY 05/19/24 05/19/24 History Dabigatran [Pradaxa] 150 mg PO BID #60 capsule 05/22/24 Rx Atorvastatin [Lipitor] 40 mg PO HS #30 tab 05/24/24 Rx Ciprofloxacin HCl [Cipro] 500 mg PO BID 10 Days #20 tab 05/24/24 Rx Losartan Potassium [Cozaar] 100 mg PO HS #30 tab 05/24/24 Rx amLODIPine [Norvasc] 5 mg PO DAILY #30 tab 05/24/24 Rx tiZANidine [Zanaflex] 2 mg PO TID PRN #60 tab 05/24/24 Rx Allergies Allergy/AdvReac Type Severity Reaction Status Date / Time No Known Allergies Allergy Verified 05/19/24 13:05 Physical Exam Vitals: Vital Signs Temp Pulse Resp BP Pulse Ox 05/21/24 12:44 53 L 16 123/74 95 05/21/24 08:00 98.1 F 58 L 16 157/92 98 05/21/24 04:24 56 L 20 146/80 91 L 05/20/24 23:38 97.8 F 58 L 16 122/70 93 L 05/20/24 20:55 99.0 F 63 16 155/84 93 L 05/20/24 16:53 65 16 137/76 94 L Intake and Output 05/20/24 05/21/24 05/21/24 22:59 06:59 14:59 Intake Total 10 0 10 Output Total 700 200 Balance -690 -200 10 Intake: IV 10 10 Invasive Line 2 10 10 Oral 0 Output: Urine 700 200 Other: Voiding Method Indwelling Catheter Indwelling Catheter Weight 102.1 kg GENERAL DESCRIPTION: Elderly male lying in bed, no distress. No tachypnea or accessory muscle of respiration use. HEENT: Shows Pallor , no scleral icterus. Oral mucous membrane is dry. No pharyngeal erythema or thrush NECK: Trachea central, no thyromegaly. LUNGS: Unlabored breathing. Clear to auscultation anteriorly. No wheeze or crackle. HEART: S1, S2, regular rate and rhythm. No loud murmur ABDOMEN: Soft, no tenderness , guarding or rigidity, no organomegaly EXTREMITIES: No edema of feet. SKIN: No rash, no masses palpable. NEUROLOGICAL: The patient is awake, alert, oriented x3, mood and affect normal. Results CBC & Chem 7: 05/21/24 12:29 05/24/24 06:55 Labs: Abnormal Lab Results - Last 24 Hours (Table) 05/21/24 05/21/24 Range/Units 08:40 12:29 RBC 3.63 L (4.30-5.90) m/uL Hgb 10.7 L (13.0-17.5) gm/dL Hct 34.2 L (39.0-53.0) % RDW 15.7 H (11.5-15.5) % Plt Count 125 L (150-450) k/uL Lymphocytes # 0.7 L (1.0-4.8) k/uL APTT 34.7 H (22.0-30.0) sec Assessment and Plan (1) Bacteremia due to Enterobacter species Status: Acute Code(s): R78.81 - BACTEREMIA; B96.89 - OTH BACTERIAL AGENTS THE CAUSE OF DISEASES [facility]SD [facility] SNOMED Code(s): 155824752733 (2) Sepsis Status: Acute Code(s): A41.9 - SEPSIS, UNSPECIFIED ORGANISM SNOMED Code(s): 43076440 (3) Urinary tract infection, site not specified Status: Acute Code(s): N39.0 - URINARY TRACT INFECTION, SITE NOT SPECIFIED SNOMED Code(s): 62993444 Plan: 1patient presented hospital with sepsis in this patient who did have fever weakness difficulty urination concerning for a complicated UTI likely due to his underlying inability to empty his bladder completely 2-patient with Enterobacter bacteremia source is likely complicated and tract infection 3-we will obtain ultrasound of the kidney bladder to make and evidence of any abscess obstruction abnormality 4-cefepime to continue while inpatient hopefully will transition to oral antibiotic on discharge if the patient did not improve We will follow on clinical condition and cultures to further adjust medication if needed Thank you for this consultation we will follow the patient along with you Dictation was produced using nvite dictation software. please excuse any grammatical, word or spelling errors. Time with Patient: Greater than 30
--- NOTE | 2024-05-22 09:49 | US ---
EXAMINATION TYPE: US kidneys/renal and bladder DATE OF EXAM: 05/22/2024 COMPARISON: US 2018 CLINICAL INDICATION: Male, 69 years old with history of uti and bacteremia; EXAM MEASUREMENTS: Right Kidney: 11.0 x 5.1 x 5.4 cm Left Kidney: 11.7 x 6.0 x 5.4 cm [employer] Manager Architect notes: Exam done portable Right Kidney: No hydronephrosis or masses seen Left Kidney: No hydronephrosis or masses seen Bladder: wnl Bilateral Jets seen: no IMPRESSION: No hydronephrosis on either side.
--- NOTE | 2024-05-22 11:04 | P.PN ---
Subjective Progress Note Date: 05/22/24 Chief complaint: Chest pain History of present illness: History of present illness: Patient is a pleasant 69-year-old male with significant past medical history of A-fib, CAD status post PCI, hypertension, tremors, restless leg syndrome, Parkinson's, dementia who presented with fevers, vomiting, hypotension. He does see Dr. Menendez in the office. Cardiology was consulted today due to new onset of chest pain and left arm numbness with shortness of breath. He reports that the symptoms started approximately 30 minutes ago and were consistent worse when he had a prior PR back in 2012. He was given nitroglycerin and this did resolve the symptoms. Blood pressure is currently elevated 154/85. EKG did show sinus rhythm with no significant ST or T wave changes. He had recent neck surgery 2 weeks ago, he was having urinary retention after that and went home with a Pulido catheter, this was removed a couple days ago and has been having issues with urinary retention. He reports he had a fever of 103 and began vomiting yesterday. He was diagnosed with sepsis. He had missed a few doses of his home medications. 05/20 Patient is seen today in follow-up. No complaints of chest pain. He has been off hypertensive medications. Blood pressure 119/60, heart rate 65, pulse ox 95% on 2 L nasal cannula. He is on a heparin drip which we will plan to continue for a full 48 hours. Repeat blood work reveals WBC 8.1, hemoglobin 10.5. Platelet count 122. INR 1.3. Sodium 136, potassium 3.3, creatinine 0.77. Repeat troponins are 0.031 and 0.043. Blood cultures are positive for Enterobacter cloacae. 05/21 Patient is seen today in follow-up. Heparin drip will be discontinued. Regarding anticoagulation, patient states he was on Xarelto in the past but he could not afford it. Reviewed previous records and there is no absolute evidence of atrial fibrillation. His blood pressure is better today. Will make some changes to his blood pressure medications as these have been on hold due to hypotension. Blood pressure 123/74, heart rate 53, pulse ox 95% on room air, he has been afebrile for greater than 24 hours. Repeat blood work reveals WBC 4.4, hemoglobin 10.7 platelet count 125. Sodium 133. Stool for occult blood was negative. 05/22 Patient is feeling better gradually each day. Sepsis is resolving. Blood pressure is also over recovering. Blood pressure today 159/77, heart rate 59, pulse ox 92% on room air. Yesterday, patient was started on losartan 25 mg daily. Patient and his in a sinus rhythm. He states he has been on anticoagulation for atrial fibrillation with Xarelto in the past but he could not afford it. Patient had episode of atrial fibrillation in February 2023. PHYSICAL EXAMINATION: This is a 69-year-old male in no apparent distress at the time of my examination. HEENT: Head is atraumatic, normocephalic. Pupils are equal, round. Sclerae anicteric. Conjunctivae are clear. Mucous membranes of the mouth are moist. Neck is supple. There is no jugular venous distention. No carotid bruit is heard. CHEST EXAMINATION: Lungs are clear to auscultation. No chest wall tenderness is noted on palpation or with deep breathing. HEART EXAMINATION: Heart regular rate and rhythm. S1, S2 heard. No murmurs, gallops or rub. ABDOMEN: Soft, nontender. Bowel sounds are heard. EXTREMITIES: 2+ peripheral pulses with no evidence of peripheral edema and no calf tenderness noted. NEUROLOGIC EXAMINATION: Patient is awake, alert and oriented x3. IMPRESSION AND PLAN: Chest pain, type II non-ST elevated PR due to sepsis CAD status post PCI Hypertension Atrial fibrillation, paroxysmal Bacteremia PLAN: Continue patient's on aspirin 81 mg daily, atorvastatin 40 mg at bedtime, Toprol-XL 25 mg daily Continue patient on losartan 25 mg daily Start patient on amlodipine 5 mg daily Start patient on Eliquis 5 mg twice daily and prescription will be sent to pharmacy to check coverage. No need to resume Lasix at this time and no plan to resume hydralazine Further recommendations as patient progresses. Nurse practitioner note has been reviewed, I agree with documented findings and plan of care. Patient was seen and examined. Objective - Vital Signs Vital signs: Vital Signs Temp 97.4 F L 05/22/24 09:16 Pulse 59 L 05/22/24 09:16 Resp 18 05/22/24 09:16 BP 159/77 05/22/24 09:16 Pulse Ox 92 L 05/22/24 09:16 FiO2 Intake & Output 05/21/24 05/22/24 05/22/24 18:59 06:59 18:59 Intake Total 10 960 128 Output Total 475 300 Balance 10 485 -172 Weight 102.6 kg Intake: IV 10 10 Invasive Line 2 10 Invasive Line 4 10 Oral 960 118 Output: Urine 475 300 Other: Voiding Method Indwelling Catheter Indwelling Catheter # Voids 1,300 - Labs CBC & Chem 7: 05/21/24 12:29 05/21/24 12:29 Labs: Abnormal Lab Results - Last 24 Hours (Table) 05/21/24 05/21/24 Range/Units 12:29 12:29 RBC 3.63 L (4.30-5.90) m/uL Hgb 10.7 L (13.0-17.5) gm/dL Hct 34.2 L (39.0-53.0) % RDW 15.7 H (11.5-15.5) % Plt Count 125 L (150-450) k/uL Lymphocytes # 0.7 L (1.0-4.8) k/uL Sodium 133 L (137-145) mmol/L Chloride 111 H (98-107) mmol/L Carbon Dioxide 21 L (22-30) mmol/L Glucose 138 H (74-99) mg/dL Calcium 8.0 L (8.4-10.2) mg/dL Microbiology - Last 24 Hours (Table) 05/18/24 19:25 Blood Culture Gram Stain - Final Blood Blood Culture - Final Enterobacter cloacae Complex 05/18/24 19:10 Blood Culture Gram Stain - Final Blood Blood Culture - Final Enterobacter cloacae Complex Molecular ID 05/18/24 19:17 Urine Culture - Final Urine,Voided Enterobacter cloacae
[2024-05-22] MEDS: amLODIPine 5 MG TAB PO SCH (11:32)
[2024-05-22] MEDS: APIXABAN 5 MG TAB PO SCH (11:32)
--- NOTE | 2024-05-22 15:23 | P.PN ---
Progress Note - Text Progress Note Date: 05/22/24 Chief Complaint: Fever pelvic pain 69-year-old patient of Dr. Gutierrez. Chronic stable medical conditions include some cognitive impairment, GERD, hyperlipidemia, hypertension, early Parkinson's versus essential tremor, , obstructive sleep apnea does not use CPAP, irritable bowel syndrome, BPH hiatal hernia. coronary artery disease with stent. Patient recently underwent cervical spine surgery at [facility]. Patient had urinary retention and a Pulido catheter had to be placed. Surgery otherwise went well. On May 16 Pulido catheter was discontinued. Patient started off with chills rigors deep pelvic pain dysuria yesterday. Tired rundown. Patient had a fever of 102.8 today in the ER with sepsis. Blood pressure also dropped down to around 90 systolic around midnight. This morning patient did have episode of chest pain EKG was ordered. Is unremarkable. Cardiology was also consulted. Earlier today blood cultures coming back positive for Enterobacter cloacae. Patient was initially given IV ceftriaxone in the ER. Was switched over to IV cefepime per pharmacy this morning. Patient rather tired. Decreased appetite May 1: Resting in bed. No further chest pain. Patient felt a possible type II AL from hypotension from sepsis. Precipitating hemodynamic mismatch. Remains on IV heparin today. Getting IV cefepime. Blood and urine culture both growing Enterobacter cloacae. May 21: In bed. Comfortable. Eating about 75%. IV heparin discontinued. Pulido catheter remain in place. Trial of DC Pulido prior to discharge. Repeat blood cultures done today. ID consulted. Remains on IV cefepime. May 3: Comfortable. Tolerating a diet. Repeat blood cultures pending. Discussed with patient. Getting IV antibiotics. Blood pressure running high. Increase Cozaar to 50 mg nightly Active Medications Acetaminophen (Acetaminophen Tab 325 Mg Tab) 650 mg PO Q6HR PRN PRN Reason: Mild Pain or Fever > 100.5 Last Admin: 05/20/24 21:00 Dose: 650 mg Hydrocodone Bitart/Acetaminophen (Hydrocodone/Apap 5-325mg 1 Each Tab) 1 each PO TID PRN PRN Reason: Pain Last Admin: 05/21/24 22:00 Dose: 1 each Amlodipine Besylate (Amlodipine 5 Mg Tab) 5 mg PO DAILY [facility] Last Admin: 05/22/24 11:32 Dose: 5 mg Aspirin (Aspirin 81 Mg) 81 mg PO DAILY [facility] Last Admin: 05/22/24 09:23 Dose: 81 mg Atorvastatin Calcium (Atorvastatin 40 Mg Tab) 40 mg PO HS [facility] Last Admin: 05/21/24 22:00 Dose: 40 mg Calcium Carbonate/Glycine (Calcium Carbonate 500 Mg Chewable) 1,000 mg PO Q4HR PRN PRN Reason: Dyspepsia Dabigatran (Dabigatran 150 Mg Cap) 150 mg PO BID [facility]; Protocol Cefepime HCl 2 gm/ Sodium (Chloride) 100 mls @ 25 mls/hr IVPB Q8H [facility]; Protocol Last Admin: 05/22/24 11:32 Dose: 25 mls/hr Lactulose (Lactulose 20 Gm/30 Ml Cup) 20 gm PO DAILY PRN PRN Reason: Constipation Lorazepam (Lorazepam 2 Mg/Ml Inj) 0.5 mg IV Q6HR PRN PRN Reason: Anxiety Losartan Potassium (Losartan 25 Mg Tab) 25 mg PO DAILY [facility] Last Admin: 05/22/24 09:22 Dose: 25 mg Memantine (Memantine 10 Mg Tab) 10 mg PO BID [facility] Last Admin: 05/22/24 09:23 Dose: 10 mg Metoprolol Succinate (Metoprolol Succinate (Er) 25 Mg Tab.Er.24h) 25 mg PO DAILY [facility] Last Admin: 05/22/24 09:23 Dose: 25 mg Morphine Sulfate (Morphine Sulfate 4 Mg/Ml Syringe) 4 mg IV Q4HR PRN PRN Reason: Severe Pain (Scale 7 to 10) Last Admin: 05/19/24 12:46 Dose: 4 mg Naloxone HCl (Naloxone 0.4 Mg/Ml 1 Ml Vial) 0.2 mg IV Q2M PRN PRN Reason: Opioid Reversal Ondansetron HCl (Ondansetron 4 Mg/2 Ml Vial) 4 mg IVP Q8HR PRN PRN Reason: Nausea And Vomiting Pramipexole Dihydrochloride (Pramipexole 0.5 Mg Tab) 1.5 mg PO HS [facility] Last Admin: 05/21/24 22:01 Dose: 1.5 mg Pregabalin (Pregabalin 100 Mg Cap) 100 mg PO BID [facility] Last Admin: 05/22/24 09:23 Dose: 100 mg Primidone (Primidone 50 Mg Tab) 150 mg PO BID@0900,2100 [facility] Last Admin: 05/22/24 09:22 Dose: 150 mg Primidone (Primidone 50 Mg Tab) 100 mg PO DAILY@1500 [facility] Last Admin: 05/21/24 16:23 Dose: 100 mg Sertraline HCl (Sertraline 100 Mg Tab) 200 mg PO HS [facility] Last Admin: 05/21/24 22:01 Dose: 200 mg Tamsulosin HCl (Tamsulosin 0.4 Mg Cap.Er.24h) 0.4 mg PO DAILY [facility] Last Admin: 05/22/24 09:23 Dose: 0.4 mg Temazepam (Temazepam 15 Mg Cap) 15 mg PO HS PRN PRN Reason: Insomnia Tizanidine HCl (Tizanidine 4 Mg Tab) 2 mg PO TID PRN PRN Reason: Muscle Spasm Last Admin: 05/20/24 21:01 Dose: 2 mg Past medical history to include: Coronary artery disease with stent, cognitive impairment, GERD, hyperlipidemia, hypertension, Parkinson disease, BPH, obstructive sleep apnea does not use CPAP, hiatal hernia Elizabeth fundoplication depression Social history: lives with no smoking. Stopped drinking alcohol in 2004. Prior to that used to drink every day On examination: VITAL SIGNS: 97.9, 54, 16, 162/86, 95% room air GENERAL APPEARANCE: Lying in bed, comfortable HEENT: Normal external appearance of nose and ear. Oral cavity normal EYES: Pupils equal. Conjunctiva normal. NECK: JVD not raised. Mass not palpable. RESPIRATORY: Respiratory effort normal. Lungs decreased breath sounds, CARDIOVASCULAR: First and second sounds normal. No edema. ABDOMEN: Soft. Liver and spleen not palpable. No tenderness. No mass palpable. Pulido catheter PSYCHIATRY: Alert and oriented x3. Mood and affect normal INVESTIGATIONS, reviewed in the clinical context: May 21: White count 4.4 hemoglobin 10.7 platelets 125 potassium 3.6 creatinine 0.66 Blood culture [May 18] positive for Enterobacter cloacae Urine culture [May 18] showing gram-negative bacilli May 20: White count 8.1 hemoglobin 10.5 platelets 122 sodium 136 creatinine 0.77. Procalcitonin 2.96 May 19: White count 10.5 hemoglobin 11 platelets 125 Troponin I 0.030, 0.031, 0.043 May 18: White count 4.7 hemoglobin 13.8 platelet 168 sodium 138 potassium 3.6 creatinine 0.85 lactic acid 4.9 Influenza type A, type B, RSV, COVID-19: PCR not detected UA positive for ketones 1+ leukoesterase EKG tracing personally reviewed by me-normal sinus rhythm Chest x-ray film personally reviewed by me-nonspecific findings questionable infiltrate Assessment and plan: -Acute UTI with cystitis secondary to Pulido catheter that was placed perioperative therapy removed on May 16.: Causing severe sepsis Blood cultures positive for Enterobacter cloacae. Repeat blood culture pending IV cefepime -Severe sepsis secondary to UTI: Better IV fluids. IV cefepime -Anterior chest wall pain. Acute type II AL from hemodynamic mismatch from hypotension: No further chest pain Received IV heparin. On aspirin. 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 Await repeat blood cultures. Past Medical History Past Medical History: Coronary Artery Disease (CAD), Chest Pain / Angina, Heart Failure, Dementia, GERD/Reflux, Hyperlipidemia, Hypertension, Myocardial Infarction (AL), Neurologic Disorder, Pneumonia, Prostate Disorder, Renal Disease, Skin Disorder, Sleep Apnea/CPAP/BIPAP Additional Past Medical History / Comment(s): early parkinson's with essential tremors, "lewy body dementia" R nephrolithiasis with surgery, EDITH with no CPAP, Irritable Bowel Syndrome diarrhea off and on, pneumonia/bronchitis, BPH, blood in stool-EGD/colonoscopy were normal, past hiatal hernia(sx), past falls., kidney failure, Last Myocardial Infarction Date:: 06/09/13 History of Any Multi-Drug Resistant Organisms: None Reported Past Surgical History: Back Surgery, Heart Catheterization, Heart Catheterization With Stent, Hernia Repair Additional Past Surgical History / Comment(s): 05/2013 stent to LAD and then a cardiac cath which showed stent patent, Recent R kidney stone removal, 03/19/15 Laparoscopic Elizabeth fundlaplication. SKIN GRAFTS CHEST & BACK FROM [place] AT 13 YRS OLD., COLONOSCOPY. EGD, L lazy eye surgery as toddler. c3 c4 fusion, c4 c5 fusion. Past Anesthesia/Blood Transfusion Reactions: No Reported Reaction Additional Past Anesthesia/Blood Transfusion Reaction / Comment(s): Pt received blood in 1967 without reaction. Date of Last Stent Placement:: 12/2017 Past Psychological History: Bipolar, Depression Additional Psychological History / Comment(s): Pt lives with his . He has depression but states medication for this is working. He is normally independent. Smoking Status: Never smoker Past Alcohol Use History: None Reported Additional Past Alcohol Use History / Comment(s): Pt quit drinking alcohol in 2004( drank almost on daily basis) Past Drug Use History: None Reported
--- NOTE | 2024-05-22 16:53 | P.PN ---
Subjective Progress Note Date: 05/22/24 Principal diagnosis: Reason for follow-up with Enterobacter UTI and bacteremia Patient is a 69-year-old male with a past medical history significant for coronary artery disease hypertension hyperlipidemia MT in this patient recently did have a cervical spine surgery and did have some irritation postsurgery presenting to the hospital for weakness generalized bodyaches has been diagnosed with a complicated UTI blood and urine culture positive for Enterobacter. On today's evaluation that is 05/22/2024,the patient denies any fever or any chills, patient is breathing comfortably on room air, the patient denies chest pain shortness of breath and no significant cough, patient denies abdominal pain, no nausea vomiting or diarrhea. Mention not feeling that good today still complaining of weakness. No new lab has been repeated today ultrasound did not show any hydronephrosis Objective - Vital Signs Vital signs: Vital Signs Temp 97.9 F 05/22/24 11:31 Pulse 54 L 05/22/24 11:31 Resp 16 05/22/24 11:31 BP 162/86 05/22/24 11:31 Pulse Ox 95 05/22/24 11:31 FiO2 Intake & Output 05/21/24 05/22/24 05/22/24 18:59 06:59 18:59 Intake Total 10 960 484 Output Total 475 700 Balance 10 485 -216 Weight 102.6 kg Intake: IV 10 10 Invasive Line 2 10 Invasive Line 4 10 Oral 960 474 Output: Urine 475 500 Post Void Residual 200 Other: Voiding Method Indwelling Catheter Indwelling Catheter Urinal # Voids 1,300 - Exam GENERAL DESCRIPTION: An elderly male lying in bed in no distress RESPIRATORY SYSTEM: Unlabored breathing , decreased breath sounds at bases HEART: S1 S2 regular rate and rhythm , ABDOMEN: Soft , no tenderness EXTREMITIES: No edema feet - Labs CBC & Chem 7: 05/21/24 12:29 05/21/24 12:29 Labs: Microbiology - Last 24 Hours (Table) 05/18/24 19:25 Blood Culture Gram Stain - Final Blood Blood Culture - Final Enterobacter cloacae Complex 05/18/24 19:10 Blood Culture Gram Stain - Final Blood Blood Culture - Final Enterobacter cloacae Complex Molecular ID 05/18/24 19:17 Urine Culture - Final Urine,Voided Enterobacter cloacae Assessment and Plan (1) Bacteremia due to Enterobacter species Current Visit: Yes Status: Acute Code(s): R78.81 - BACTEREMIA; B96.89 - OTH BACTERIAL AGENTS THE CAUSE OF DISEASES CLASSD [id number] SNOMED Code(s): 860462981154 (2) Pyelonephritis Current Visit: Yes Status: Acute Code(s): N12 - TUBULO-INTERSTITIAL NEPHRITIS, NOT SPCF ACUTE OR CHRONIC SNOMED Code(s): 24840672 (3) Urinary tract infection, site not specified Current Visit: Yes Status: Acute Code(s): N39.0 - URINARY TRACT INFECTION, SITE NOT SPECIFIED SNOMED Code(s): 63448564 Plan: 1patient presented hospital with sepsis in this patient who did have fever weakness difficulty urination concerning for a complicated UTI likely due to his underlying inability to empty his bladder completely 2-patient with Enterobacter bacteremia source is likely complicated and tract infection 3-patient ultrasound of the kidney bladder with no evidence of any abscess obstruction abnormality 4-patient to continue with cefepime while inpatient and monitor clinical course closely Dictation was produced using [employer] dictation software. please excuse any grammatical, word or spelling errors. Time with Patient: Less than 30
[2024-05-22] MEDS: DABIGATRAN 150 MG CAP PO SCH (21:51)
[2024-05-22] MEDS: LOSARTAN 50 MG TAB PO SCH (21:52)
[2024-05-23 12:17] VITALS: RESP 18
--- NOTE | 2024-05-23 16:14 | P.PN ---
Subjective Progress Note Date: 05/23/24 Principal diagnosis: Reason for follow-up with Enterobacter UTI and bacteremia Patient is a 69-year-old male with a past medical history significant for coronary artery disease hypertension hyperlipidemia [place] in this patient recently did have a cervical spine surgery and did have some irritation postsurgery presenting to the hospital for weakness generalized bodyaches has been diagnosed with a complicated UTI blood and urine culture positive for Enterobacter. On today's evaluation that is 05/23/2024,the patient remains to be afebrile, patient is on room air not requiring supplemental oxygen and denies any shortness of breath no chest pain or cough.Patient denies having any nausea or vomiting, no abdominal pain and no diarrhea has been reported, patient did have Pulido catheter discontinued patient able to urinate without any problem. Patient did not have any lab draw today blood culture repeat has been negative so far Objective - Vital Signs Vital signs: Vital Signs Temp 98.0 F 05/23/24 08:54 Pulse 58 L 05/23/24 13:49 Resp 18 05/23/24 13:49 BP 169/93 05/23/24 12:16 Pulse Ox 93 L 05/23/24 12:16 FiO2 Intake & Output 05/22/24 05/23/24 05/23/24 18:59 06:59 18:59 Intake Total 724 10 358 Output Total 1200 1200 Balance -476 -1190 358 Weight 101.5 kg Intake: IV 10 10 Invasive Line 4 10 10 Oral 714 358 Output: Urine 1000 1200 Post Void Residual 200 Other: Voiding Method Urinal Urinal Urinal - Exam GENERAL DESCRIPTION: An elderly male lying in bed in no distress RESPIRATORY SYSTEM: Unlabored breathing , decreased breath sounds at bases HEART: S1 S2 regular rate and rhythm , ABDOMEN: Soft , no tenderness EXTREMITIES: No edema feet - Labs CBC & Chem 7: 05/21/24 12:29 05/21/24 12:29 Labs: Microbiology - Last 24 Hours (Table) 05/21/24 12:29 Blood Culture - Preliminary Blood Assessment and Plan (1) Bacteremia due to Enterobacter species Current Visit: Yes Status: Acute Code(s): R78.81 - BACTEREMIA; B96.89 - OTH BACTERIAL AGENTS THE CA[facility] OF [facility]EASES [facility] SNOMED Code(s): 810061514668 (2) Pyelonephritis Current Visit: Yes Status: Acute Code(s): N12 - TUBULO-INTERSTITIAL NEPHRITIS, NOT SPCF ACUTE OR CHRONIC SNOMED Code(s): 61320964 (3) Urinary tract infection, site not specified Current Visit: Yes Status: Acute Code(s): N39.0 - URINARY TRACT INFECTION, SITE NOT SPECIFIED SNOMED Code(s): 05122984 Plan: 1patient presented hospital with sepsis in this patient who did have fever weakness difficulty urination concerning for a complicated UTI likely due to his underlying inability to empty his bladder completely 2-patient with Enterobacter bacteremia source is likely complicated and tract infection 3-patient ultrasound of the kidney bladder with no evidence of any abscess obstruction abnormality 4-patient seem to have shown clinical improvement and will continue with cefepime while inpatient and finishing therapy with oral Cipro discussed with admitting physician Dictation was produced using [employer] dictation software. please excuse any grammatical, word or spelling errors. Time with Patient: Less than 30
--- NOTE | 2024-05-23 20:23 | P.PN ---
Progress Note - Text Progress Note Date: 05/23/24 Chief Complaint: Fever pelvic pain 69-year-old patient of Dr. Gutierrez. Chronic stable medical conditions include some cognitive impairment, GERD, hyperlipidemia, hypertension, early Parkinson's versus essential tremor, , obstructive sleep apnea does not use CPAP, irritable bowel syndrome, BPH hiatal hernia. coronary artery disease with stent. Patient recently underwent cervical spine surgery at [facility]. Patient had urinary retention and a Pulido catheter had to be placed. Surgery otherwise went well. On May 16 Pulido catheter was discontinued. Patient started off with chills rigors deep pelvic pain dysuria yesterday. Tired rundown. Patient had a fever of 102.8 today in the ER with sepsis. Blood pressure also dropped down to around 90 systolic around midnight. This morning patient did have episode of chest pain EKG was ordered. Is unremarkable. Cardiology was also consulted. Earlier today blood cultures coming back positive for Enterobacter cloacae. Patient was initially given IV ceftriaxone in the ER. Was switched over to IV cefepime per pharmacy this morning. Patient rather tired. Decreased appetite May 1: Resting in bed. No further chest pain. Patient felt a possible type II ME from hypotension from sepsis. Precipitating hemodynamic mismatch. Remains on IV heparin today. Getting IV cefepime. Blood and urine culture both growing Enterobacter cloacae. May 21: In bed. Comfortable. Eating about 75%. IV heparin discontinued. Pulido catheter remain in place. Trial of DC Pulido prior to discharge. Repeat blood cultures done today. ID consulted. Remains on IV cefepime. May 22: Comfortable. Tolerating a diet. Repeat blood cultures pending. Discussed with patient. Getting IV antibiotics. Blood pressure running high. Increase Cozaar to 50 mg nightly May 4: Blood pressure still running on the higher side. Will increase Cozaar to 100 mg nightly. Discussed with ID. Patient Should be able to be discharged tomorrow with oral Cipro. Patient eating well. Trial of DC Pulido 6 AM Active Medications Acetaminophen (Acetaminophen Tab 325 Mg Tab) 650 mg PO Q6HR PRN PRN Reason: Mild Pain or Fever > 100.5 Last Admin: 05/23/24 09:03 Dose: 650 mg Hydrocodone Bitart/Acetaminophen (Hydrocodone/Apap 5-325mg 1 Each Tab) 1 each PO TID PRN PRN Reason: Pain Last Admin: 05/21/24 22:00 Dose: 1 each Amlodipine Besylate (Amlodipine 5 Mg Tab) 5 mg PO DAILY [facility] Last Admin: 05/23/24 08:58 Dose: 5 mg Aspirin (Aspirin 81 Mg) 81 mg PO DAILY [facility] Last Admin: 05/23/24 08:59 Dose: 81 mg Atorvastatin Calcium (Atorvastatin 40 Mg Tab) 40 mg PO HS [facility] Last Admin: 05/22/24 21:52 Dose: 40 mg Calcium Carbonate/Glycine (Calcium Carbonate 500 Mg Chewable) 1,000 mg PO Q4HR PRN PRN Reason: Dyspepsia Dabigatran (Dabigatran 150 Mg Cap) 150 mg PO BID [facility]; Protocol Last Admin: 05/23/24 08:59 Dose: 150 mg Cefepime HCl 2 gm/ Sodium (Chloride) 100 mls @ 25 mls/hr IVPB Q8H [facility]; Protocol Last Admin: 05/23/24 12:33 Dose: 25 mls/hr Lactulose (Lactulose 20 Gm/30 Ml Cup) 20 gm PO DAILY PRN PRN Reason: Constipation Lorazepam (Lorazepam 2 Mg/Ml Inj) 0.5 mg IV Q6HR PRN PRN Reason: Anxiety Losartan Potassium (Losartan 50 Mg Tab) 100 mg PO HS [facility] Memantine (Memantine 10 Mg Tab) 10 mg PO BID [facility] Last Admin: 05/23/24 08:59 Dose: 10 mg Metoprolol Succinate (Metoprolol Succinate (Er) 25 Mg Tab.Er.24h) 25 mg PO DAILY [facility] Last Admin: 05/23/24 08:58 Dose: 25 mg Morphine Sulfate (Morphine Sulfate 4 Mg/Ml Syringe) 4 mg IV Q4HR PRN PRN Reason: Severe Pain (Scale 7 to 10) Last Admin: 05/19/24 12:46 Dose: 4 mg Naloxone HCl (Naloxone 0.4 Mg/Ml 1 Ml Vial) 0.2 mg IV Q2M PRN PRN Reason: Opioid Reversal Ondansetron HCl (Ondansetron 4 Mg/2 Ml Vial) 4 mg IVP Q8HR PRN PRN Reason: Nausea And Vomiting Pramipexole Dihydrochloride (Pramipexole 0.5 Mg Tab) 1.5 mg PO [facility] Last Admin: 05/22/24 21:52 Dose: 1.5 mg Pregabalin (Pregabalin 100 Mg Cap) 100 mg PO BID [facility] Last Admin: 05/23/24 08:58 Dose: 100 mg Primidone (Primidone 50 Mg Tab) 150 mg PO BID@0900,2100 [facility] Last Admin: 05/23/24 08:59 Dose: 150 mg Primidone (Primidone 50 Mg Tab) 100 mg PO DAILY@1500 [facility] Last Admin: 05/23/24 14:42 Dose: 100 mg Sertraline HCl (Sertraline 100 Mg Tab) 200 mg PO HS [facility] Last Admin: 05/22/24 21:52 Dose: 200 mg Tamsulosin HCl (Tamsulosin 0.4 Mg Cap.Er.24h) 0.4 mg PO DAILY [facility] Last Admin: 05/23/24 08:59 Dose: 0.4 mg Temazepam (Temazepam 15 Mg Cap) 15 mg PO HS PRN PRN Reason: Insomnia Tizanidine HCl (Tizanidine 4 Mg Tab) 2 mg PO TID PRN PRN Reason: Muscle Spasm Last Admin: 05/20/24 21:01 Dose: 2 mg Past medical history to include: Coronary artery disease with stent, cognitive impairment, GERD, hyperlipidemia, hypertension, Parkinson disease, BPH, obstructive sleep apnea does not use CPAP, hiatal hernia Elizabeth fundoplication depression Social history: lives with no smoking. Stopped drinking alcohol in 2004. Prior to that used to drink every day On examination: VITAL SIGNS: 98, 57, 20, 153 x 82, 92% room air GENERAL APPEARANCE: Lying in bed, comfortable HEENT: Normal external appearance of nose and ear. Oral cavity normal EYES: Pupils equal. Conjunctiva normal. NECK: JVD not raised. Mass not palpable. RESPIRATORY: Respiratory effort normal. Lungs decreased breath sounds, CARDIOVASCULAR: First and second sounds normal. No edema. ABDOMEN: Soft. Liver and spleen not palpable. No tenderness. No mass palpable. Pulido catheter PSYCHIATRY: Alert and oriented x3. Mood and affect normal INVESTIGATIONS, reviewed in the clinical context: May 21: White count 4.4 hemoglobin 10.7 platelets 125 potassium 3.6 creatinine 0.66 Blood culture [May 18] positive for Enterobacter cloacae Urine culture [May 18] showing gram-negative bacilli May 20: White count 8.1 hemoglobin 10.5 platelets 122 sodium 136 creatinine 0.77. Procalcitonin 2.96 May 19: White count 10.5 hemoglobin 11 platelets 125 Troponin I 0.030, 0.031, 0.043 May 18: White count 4.7 hemoglobin 13.8 platelet 168 sodium 138 potassium 3.6 creatinine 0.85 lactic acid 4.9 Influenza type A, type B, RSV, COVID-19: PCR not detected UA positive for ketones 1+ leukoesterase EKG tracing personally reviewed by me-normal sinus rhythm Chest x-ray film personally reviewed by me-nonspecific findings questionable infiltrate Assessment and plan: -Acute UTI with cystitis secondary to Pulido catheter that was placed perioperative therapy removed on May 16.: Causing severe sepsis Blood cultures positive for Enterobacter cloacae. Repeat blood culture pending IV cefepime -Severe sepsis secondary to UTI: Better IV fluids. IV cefepime -Anterior chest wall pain. Acute type II ME from hemodynamic mismatch from hypotension: No further chest pain Received IV heparin. On aspirin. 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 Pulido catheter -Recent cervical spine surgery at [facility] -Full code Trial of DC Pulido in the morning. Increase Cozaar to 100 mg nightly. Plan for discharge tomorrow. Past Medical History Past Medical History: Coronary Artery Disease (CAD), Chest Pain / Angina, Heart Failure, Dementia, GERD/Reflux, Hyperlipidemia, Hypertension, Myocardial Infarction (ME), Neurologic Disorder, Pneumonia, Prostate Disorder, Renal Disease, Skin Disorder, Sleep Apnea/CPAP/BIPAP Additional Past Medical History / Comment(s): early parkinson's with essential tremors, "lewy body dementia" R nephrolithiasis with surgery, EDITH with no CPAP, Irritable Bowel Syndrome diarrhea off and on, pneumonia/bronchitis, BPH, blood in stool-EGD/colonoscopy were normal, past hiatal hernia(sx), past falls., kidney failure, Last Myocardial Infarction Date:: 06/09/13 History of Any Multi-Drug Resistant Organisms: None Reported Past Surgical History: Back Surgery, Heart Catheterization, Heart Catheterization With Stent, Hernia Repair Additional Past Surgical History / Comment(s): 05/2013 stent to LAD and then a cardiac cath which showed stent patent, Recent R kidney stone removal, 03/19/15 Laparoscopic Elizabeth fundlaplication. SKIN GRAFTS CHEST & BACK FROM [place] AT 13 YRS OLD., COLONOSCOPY. EGD, L lazy eye surgery as toddler. c3 c4 fusion, c4 c5 fusion. Past Anesthesia/Blood Transfusion Reactions: No Reported Reaction Additional Past Anesthesia/Blood Transfusion Reaction / Comment(s): Pt received blood in 1967 without reaction. Date of Last Stent Placement:: 12/2017 Past Psychological History: Bipolar, Depression Additional Psychological History / Comment(s): Pt lives with his . He has depression but states medication for this is working. He is normally independent. Smoking Status: Never smoker Past Alcohol Use History: None Reported Additional Past Alcohol Use History / Comment(s): Pt quit drinking alcohol in 2004( drank almost on daily basis) Past Drug Use History: None Reported
[2024-05-23] MEDS: LOSARTAN 50 MG TAB PO SCH (20:51)
[2024-05-24 08:51] LABS: African American GFR (CKD) >90 (>60 ml/min/1.73 sqM); Anion Gap 4 mmol/L; Blood Urea Nitrogen 9 mg/dL (9-20); Carbon Dioxide 28 mmol/L (22-30); Chloride 108 mmol/L (98-107); Glucose 96 mg/dL (74-99); Non-African American GFR(CKD) >90 (>60 ml/min/1.73 sqM); Potassium 3.4 mmol/L (3.5-5.1); Sodium 140 mmol/L (137-145)
[2024-05-24] MEDS: POTASSIUM CHLORIDE ER 20 MEQ TAB.ER PO STA (10:48)
--- NOTE | 2024-05-24 11:01 | CA ---
Transthoracic Echo Report Name: Ye Michael Age: 69 Gender: M : 1955 Exam Date: 05/24/2024 08:02 Exam Location: [place] [facility] Ht (in): 74 Wt (lb): 223 Ordering Physician: Maribell Villalpando Attending/Referring Phys: [id number], Kwasi Marble Chip [employer]ra[employer] Worker Destiney Zaman RDCS Procedure CPT: Indications: vegetation Cardiac Hx: Technical Quality: Fair Contrast 1: Total Dose (mL): Contrast 2: Total Dose (mL): MEASUREMENTS (Male / Female) Normal Values 2D ECHO LV Diastolic Diameter PLAX 5.4 cm 4.2 - 5.9 / 3.9 - 5.3 cm LV Systolic Diameter PLAX 3.6 cm IVS Diastolic Thickness 1.3 cm 0.6 - 1.0 / 0.6 - 0.9 cm LVPW Diastolic Thickness 1.4 cm 0.6 - 1.0 / 0.6 - 0.9 cm LV Relative Wall Thickness 0.5 RV Internal Dim ED PLAX 3.6 cm LA Systolic Diameter LX 4.9 cm 3.0 - 4.0 / 2.7 - 3.8 cm LV Diastolic Volume MOD BP 96.3 cm??? 67 - 155 / 56 - 104 cm??? LV Systolic Volume MOD BP 37.6 cm??? 22 - 58 / 19 - 49 cm??? LV Ejection Fraction MOD BP 61.0 % >= 55 % LV Cardiac Index MOD BP 2407.1 cm???/min???m??? LV Diastolic Volume MOD 4C 102.3 cm??? LV Systolic Volume MOD 4C 34.8 cm??? LV Ejection Fraction MOD 4C 66.0 % LV Cardiac Index MOD 4C 2767.2 cm???/min???m??? LV Diastolic Length 4C 9.0 cm LV Systolic Length 4C 7.2 cm LV Diastolic Volume MOD 2C 88.2 cm??? LV Systolic Volume MOD 2C 40.8 cm??? LV Ejection Fraction MOD 2C 53.7 % LV Cardiac Index MOD 2C 1945.1 cm???/min???m??? LV Diastolic Length 2C 8.8 cm LV Systolic Length 2C 7.3 cm M-MODE Aortic Root Diameter MM 3.4 cm LA Systolic Diameter MM 4.9 cm LA Ao Ratio MM 1.4 AV Cusp Separation MM 1.8 cm DOPPLER AV Peak Velocity 162.8 cm/s AV Peak Gradient 10.6 mmHg AI Peak Velocity 303.8 cm/s AI Peak Gradient 36.9 mmHg AI Pressure Half Time 1046.8 ms Mitral E Point Velocity 64.7 cm/s Mitral A Point Velocity 87.7 cm/s Mitral E to A Ratio 0.7 MV Deceleration Time 340.0 ms MV E' Velocity 5.8 cm/s Mitral E to MV E' Ratio 11.2 TR Peak Velocity 225.1 cm/s TR Peak Gradient 20.3 mmHg Right Ventricular Systolic Press 26.0 mmHg FINDINGS Left Ventricle Left ventricular ejection fraction is estimated at 55-60 %. Mildly increased septal wall thickness. No obvious regional wall motion abnormalities. Left ventricular cavity size normal. Right Ventricle Normal right ventricular size and function. Right ventricular systolic pressure within normal limits. Right Atrium Mild right atrial dilatation. Left Atrium Moderately increased left atrial diameter. Mitral Valve Structurally normal mitral valve. Mild mitral regurgitation. No mitral stenosis. Aortic Valve Trileaflet aortic valve. No aortic stenosis. Mild aortic regurgitation. Tricuspid Valve Structurally normal tricuspid valve. Mild tricuspid regurgitation. Pulmonic Valve Structurally normal pulmonic valve. Trace pulmonic regurgitation. No pulmonic stenosis. Pericardium No pericardial or pleural effusion. Aorta Normal size aortic root and proximal ascending aorta. CONCLUSIONS 1. Normal left ventricular size and systolic function 2. Mild aortic regurgitation 3. Mild mitral regurgitation 4. Mild tricuspid regurgitation with no evidence of pulmonary hypertension Previewed by: Dr. Dasia Joshi MD (Electronically Signed) Final Date: 24 May 2024 11:01
--- NOTE | 2024-05-24 12:43 | P.PN ---
Subjective Progress Note Date: 05/24/24 Principal diagnosis: Reason for follow-up with Enterobacter UTI and bacteremia Patient is a 69-year-old male with a past medical history significant for coronary artery disease hypertension hyperlipidemia DE in this patient recently did have a cervical spine surgery and did have some irritation postsurgery presenting to the hospital for weakness generalized bodyaches has been diagnosed with a complicated UTI blood and urine culture positive for Enterobacter. On today's evaluation that is 05/24/2024, the patient continues to be afebrile, the patient is on room air and breathing comfortably, the Pt denies having any chest pain or cough, the patient denies having any abdominal pain no vomiting or any diarrhea mention no problem with the urination after discontinuation of his Pulido feeling better. Patient INR 0.62 blood culture repeat has been negative so far Objective - Vital Signs Vital signs: Vital Signs Temp 97.8 F 05/24/24 03:58 Pulse 64 05/24/24 03:58 Resp 18 05/24/24 03:58 BP 140/77 05/24/24 03:58 Pulse Ox 93 L 05/24/24 03:58 FiO2 Intake & Output 05/23/24 05/24/24 05/24/24 18:59 06:59 18:59 Intake Total 1228 220 Output Total 875 900 Balance 353 -900 220 Intake: Oral 1228 220 Output: Urine 875 900 Other: Voiding Method Urinal Urinal - Exam GENERAL DESCRIPTION: An elderly male lying in bed in no distress RESPIRATORY SYSTEM: Unlabored breathing , decreased breath sounds at bases HEART: S1 S2 regular rate and rhythm , ABDOMEN: Soft , no tenderness EXTREMITIES: No edema feet - Labs CBC & Chem 7: 05/21/24 12:29 05/24/24 06:55 Labs: Abnormal Lab Results - Last 24 Hours (Table) 05/24/24 Range/Units 06:55 Potassium 3.4 L (3.5-5.1) mmol/L Chloride 108 H (98-107) mmol/L Creatinine 0.62 L (0.66-1.25) mg/dL Calcium 8.0 L (8.4-10.2) mg/dL Microbiology - Last 24 Hours (Table) 05/21/24 12:29 Blood Culture - Preliminary Blood Assessment and Plan (1) Bacteremia due to Enterobacter species Current Visit: Yes Status: Acute Code(s): R78.81 - BACTEREMIA; B96.89 - OTH BACTERIAL AGENTS [facility] Code(s): 113998704445 (2) Pyelonephritis Current Visit: Yes Status: Acute Code(s): N12 - TUBULO-INTERSTITIAL NEPHRITIS, NOT [facility] ACUTE OR CHRONIC SNOMED Code(s): 19792410 (3) Urinary tract infection, site not specified Current Visit: Yes Status: Acute Code(s): N39.0 - URINARY TRACT INFECTION, SITE NOT SPECIFIED SNOMED Code(s): 17736395 Plan: 1patient presented hospital with sepsis in this patient who did have fever weakness difficulty urination concerning for a complicated UTI likely due to his underlying inability to empty his bladder completely 2-patient with Enterobacter bacteremia source is likely complicated and tract infection 3-patient ultrasound of the kidney bladder with no evidence of any abscess obstruction abnormality 4-patient has shown clinical improvement and repeat blood culture has been negative he will finish therapy with oral Cipro prescription sent to the pharmacy Dictation was produced using [employer] dictation software. please excuse any grammatical, word or spelling errors. Time with Patient: Less than 30
[2024-05-24 13:08] VITALS: BP 174/88; PULSE 58; TEMP 97.3
--- NOTE | 2024-05-24 13:26 | P.DS ---
Providers Date of admission: 05/18/24 21:50 Expected date of discharge: 05/24/24 Attending physician: Pierce Chakraborty Consults: 05/18/24 21:47 Consult Physician Urgent Consulting Provider: Roberto Garcia Consult Reason/Comments: urinary retention, uti Do you want consulting provider notified?: Yes, Notify in am 05/19/24 12:43 Consult Physician Routine Consulting Provider: Gustabo Page Consult Reason/Comments: chest pain Do you want consulting provider notified?: Yes 05/21/24 12:18 Consult Physician Routine Consulting Provider: Demetrice Montgomery Consult Reason/Comments: pos blood cult Do you want consulting provider notified?: Yes Primary care physician: [facility] Course: Chief Complaint: Fever pelvic pain 69-year-old patient of Dr. Gutierrez. Chronic stable medical conditions include some cognitive impairment, GERD, hyperlipidemia, hypertension, early Parkinson's versus essential tremor, , obstructive sleep apnea does not use CPAP, irritable bowel syndrome, BPH hiatal hernia. coronary artery disease with stent. Patient recently underwent cervical spine surgery at [facility]. Patient had urinary retention and a Pulido catheter had to be placed. Surgery otherwise went well. On May 16 Pulido catheter was discontinued. Patient started off with chills rigors deep pelvic pain dysuria yesterday. Tired r undown. Patient had a fever of 102.8 today in the ER with sepsis. Blood pressure also dropped down to around 90 systolic around midnight. This morning patient did have episode of chest pain EKG was ordered. Is unremarkable. Cardiology was also consulted. Earlier today blood cultures coming back positive for Enterobacter cloacae. Patient was initially given IV ceftriaxone in the ER. Was switched over to IV cefepime per pharmacy this morning. Patient rather tired. Decreased appetite May 20: Resting in bed. No further chest pain. Patient felt a possible type II NV from hypotension from sepsis. Precipitating hemodynamic mismatch. Remains on IV heparin today. Getting IV cefepime. Blood and urine culture both growing Enterobacter cloacae. May 21: In bed. Comfortable. Eating about 75%. IV heparin discontinued. Pulido catheter remain in place. Trial of DC Pulido prior to discharge. Repeat blood cultures done today. ID consulted. Remains on IV cefepime. May 22: Comfortable. Tolerating a diet. Repeat blood cultures pending. Discussed with patient. Getting IV antibiotics. Blood pressure running high. Increase Cozaar to 50 mg nightly May 23: Blood pressure still running on the higher side. Will increase Cozaar to 100 mg nightly. Discussed with ID. Patient Should be able to be discharged tomorrow with oral Cipro. Patient eating well. Trial of DC Pulido 6 AM May 24: Patient doing well. Making urine. Will follow-up with urology-Dr. Vela. Will be discharged with oral Cipro. Follow-up with his clinical lab specialist. Questions answered. Discussion and discharge planning more than 35 minutes Past medical history to include: Coronary artery disease with stent, cognitive impairment, GERD, hyperlipidemia, hypertension, Parkinson disease, BPH, obstructive sleep apnea does not use CPAP, hiatal hernia Elizabeth fundoplication depression Social history: lives with no smoking. Stopped drinking alcohol in 2004. Prior to that used to drink every day On examination: VITAL SIGNS: Afebrile, 64, 18, 140/77, 93% room air GENERAL APPEARANCE: Comfortable HEENT: Normal external appearance of nose and ear. Oral cavity normal EYES: Pupils equal. Conjunctiva normal. NECK: JVD not raised. Mass not palpable. RESPIRATORY: Respiratory effort normal. Lungs decreased breath sounds, CARDIOVASCULAR: First and second sounds normal. No edema. ABDOMEN: Soft. Liver and spleen not palpable. No tenderness. No mass palpable. Pulido catheter PSYCHIATRY: Alert and oriented x3. Mood and affect normal INVESTIGATIONS, reviewed in the clinical context: May 24: Potassium 3.4 creatinine 0.62 May 21: White count 4.4 hemoglobin 10.7 platelets 125 potassium 3.6 creatinine 0.66 Blood culture [May 18] positive for Enterobacter cloacae Urine culture [May 18] showing gram-negative bacilli May 20: White count 8.1 hemoglobin 10.5 platelets 122 sodium 136 creatinine 0.77. Procalcitonin 2.96 May 19: White count 10.5 hemoglobin 11 platelets 125 Troponin I 0.030, 0.031, 0.043 May 18: White count 4.7 hemoglobin 13.8 platelet 168 sodium 138 potassium 3.6 creatinine 0.85 lactic acid 4.9 Influenza type A, type B, RSV, COVID-19: PCR not detected UA positive for ketones 1+ leukoesterase EKG tracing personally reviewed by me-normal sinus rhythm Chest x-ray film personally reviewed by me-nonspecific findings questionable infiltrate Assessment and plan: -Acute UTI with cystitis secondary to Pulido catheter that was placed perioperative therapy removed on May 16.: Causing severe sepsis Blood cultures positive for Enterobacter cloacae. Repeat blood culture pending IV cefepime Discharged on ciprofloxacin 5 mg twice daily for 10 days -Severe sepsis secondary to UTI: Better IV fluids. IV cefepime -Anterior chest wall pain. Acute type II NV from hemodynamic mismatch from hypotension: No further chest pain Received IV heparin. On aspirin. 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 Pulido catheter-discontinued -Recent cervical spine surgery at [facility] -Full code Disposition: Home Past Medical History Past Medical History: Coronary Artery Disease (CAD), Chest Pain / Angina, Heart Failure, Dementia, GERD/Reflux, Hyperlipidemia, Hypertension, Myocardial Infarction (NV), Neurologic Disorder, Pneumonia, Prostate Disorder, Renal Disease, Skin Disorder, Sleep Apnea/CPAP/BIPAP Additional Past Medical History / Comment(s): early parkinson's with essential tremors, "lewy body dementia" R nephrolithiasis with surgery, EDITH with no CPAP, Irritable Bowel Syndrome diarrhea off and on, pneumonia/bronchitis, BPH, blood in stool-EGD/colonoscopy were normal, past hiatal hernia(sx), past falls., kidney failure, Last Myocardial Infarction Date:: 06/09/13 History of Any Multi-Drug Resistant Organisms: None Reported Past Surgical History: Back Surgery, Heart Catheterization, Heart Catheterization With Stent, Hernia Repair Additional Past Surgical History / Comment(s): 05/2013 stent to LAD and then a cardiac cath which showed stent patent, Recent R kidney stone removal, 03/19/15 Laparoscopic Elizabeth fundlaplication. SKIN GRAFTS CHEST & BACK FROM B[place]ETT AT 13 YRS OLD., COLONOSCOPY. EGD, L lazy eye surgery as toddler. c3 c4 fusion, c4 c5 fusion. Past Anesthesia/Blood Transfusion Reactions: No Reported Reaction Additional Past Anesthesia/Blood Transfusion Reaction / Comment(s): Pt received blood in 1967 without reaction. Date of Last Stent Placement:: 12/2017 Past Psychological History: Bipolar, Depression Additional Psychological History / Comment(s): Pt lives with his . He has depression but states medication for this is working. He is normally independent. Smoking Status: Never smoker Past Alcohol Use History: None Reported Additional Past Alcohol Use History / Comment(s): Pt quit drinking alcohol in 2004( drank almost on daily basis) Past Drug Use History: None Reported Plan - Discharge Summary Discharge Rx Participant: No New Discharge Prescriptions: New Dabigatran [Pradaxa] 150 mg PO BID #60 capsule Ciprofloxacin HCl [Cipro] 500 mg PO BID 10 Days #20 tab Atorvastatin [Lipitor] 40 mg PO HS #30 tab tiZANidine [Zanaflex] 2 mg PO TID PRN #60 tab PRN Reason: Muscle Spasm Losartan Potassium [Cozaar] 100 mg PO HS #30 tab amLODIPine [Norvasc] 5 mg PO DAILY #30 tab Continue Primidone [Mysoline] 100 mg PO DAILY Memantine [Namenda] 10 mg PO BID Pramipexole Di-HCl [Mirapex] 1.5 mg PO HS Pregabalin [Lyrica] 100 mg PO BID Sertraline [Zoloft] 200 mg PO DAILY Primidone [Mysoline] 150 mg PO HS Tamsulosin [Flomax] 0.4 mg PO DAILY Aspirin 81 mg PO DAILY tab HYDROcodone/APAP 5-325MG [[place] 5-325] 1 tab PO Q6H PRN PRN Reason: Pain Metoprolol Succinate (ER) [Toprol XL] 25 mg PO DAILY Discontinued Atorvastatin [Lipitor] 80 mg PO HS #30 tab Ibuprofen [Motrin] 800 mg PO TID PRN PRN Reason: Pain Furosemide [Lasix] 40 mg PO DAILY #0 hydrALAZINE HCL [Apresoline] 25 mg PO TID Discharge Medication List Primidone [Mysoline] 100 mg PO DAILY 12/20/17 [History] Memantine [Namenda] 10 mg PO BID 02/17/20 [History] Pramipexole Di-HCl [Mirapex] 1.5 mg PO HS 02/17/20 [History] Pregabalin [Lyrica] 100 mg PO BID 03/10/21 [History] Sertraline [Zoloft] 200 mg PO DAILY 08/18/21 [History] Aspirin 81 mg PO DAILY tab 11/25/22 [Rx] HYDROcodone/APAP 5-325MG [[place] 5-325] 1 tab PO Q6H PRN 02/27/23 [History] Metoprolol Succinate (ER) [Toprol XL] 25 mg PO DAILY 02/17/24 [History] Primidone [Mysoline] 150 mg PO HS 02/17/24 [History] Tamsulosin [Flomax] 0.4 mg PO DAILY 05/19/24 [History] Dabigatran [Pradaxa] 150 mg PO BID #60 capsule 05/22/24 [Rx] Atorvastatin [Lipitor] 40 mg PO HS #30 tab 05/24/24 [Rx] Ciprofloxacin HCl [Cipro] 500 mg PO BID 10 Days #20 tab 05/24/24 [Rx] Losartan Potassium [Cozaar] 100 mg PO HS #30 tab 05/24/24 [Rx] amLODIPine [Norvasc] 5 mg PO DAILY #30 tab 05/24/24 [Rx] tiZANidine [Zanaflex] 2 mg PO TID PRN #60 tab 05/24/24 [Rx] Follow up Appointment(s)/Referral(s): Román Gutierrez DO [Primary Care Provider] - 1-2 days (please call on Monday to schedule an appointment) Deshawn Hernandez MD [STAFF PHYSICIAN] - 1 Week (The office will call you with an appointment) Deyvi Vela MD [STAFF PHYSICIAN] - 10 Days (Office virginie call you with an appointment) [facility] Visiting Nurse, [NON-STAFF] - Discharge/Stand Alone Forms: Who Do I Call?
--- NOTE | 2024-05-24 15:27 | P.PN ---
Subjective Progress Note Date: 05/24/24 Chief complaint: Chest pain History of present illness: History of present illness: Patient is a pleasant 69-year-old male with significant past medical history of A-fib, CAD status post PCI, hypertension, tremors, restless leg syndrome, Parkinson's, dementia who presented with fevers, vomiting, hypotension. He does see Dr. Hernandez in the office. Cardiology was consulted today due to new onset of chest pain and left arm numbness with shortness of breath. He reports that the symptoms started approximately 30 minutes ago and were consistent worse when he had a prior NE back in 2012. He was given nitroglycerin and this did resolve the symptoms. Blood pressure is currently elevated 154/85. EKG did show sinus rhythm with no significant ST or T wave changes. He had recent neck surgery 2 weeks ago, he was having urinary retention after that and went home with a Pulido catheter, this was removed a couple days ago and has been having issues with urinary retention. He reports he had a fever of 103 and began vomiting yesterday. He was diagnosed with sepsis. He had missed a few doses of his home medications. 05/20 Patient is seen today in follow-up. No complaints of chest pain. He has been off hypertensive medications. Blood pressure 119/60, heart rate 65, pulse ox 95% on 2 L nasal cannula. He is on a heparin drip which we will plan to continue for a full 48 hours. Repeat blood work reveals WBC 8.1, hemoglobin 10.5. Platelet count 122. INR 1.3. Sodium 136, potassium 3.3, creatinine 0.77. Repeat troponins are 0.031 and 0.043. Blood cultures are positive for Enterobacter cloacae. 05/21 Patient is seen today in follow-up. Heparin drip will be discontinued. Regarding anticoagulation, patient states he was on Xarelto in the past but he could not afford it. Reviewed previous records and there is no absolute evidence of atrial fibrillation. His blood pressure is better today. Will make some changes to his blood pressure medications as these have been on hold due to hypotension. Blood pressure 123/74, heart rate 53, pulse ox 95% on room air, he has been afebrile for greater than 24 hours. Repeat blood work reveals WBC 4.4, hemoglobin 10.7 platelet count 125. Sodium 133. Stool for occult blood was negative. 05/22 Patient is feeling better gradually each day. Sepsis is resolving. Blood p ressure is also over recovering. Blood pressure today 159/77, heart rate 59, pulse ox 92% on room air. Yesterday, patient was started on losartan 25 mg daily. Patient and his in a sinus rhythm. He states he has been on anticoagulation for atrial fibrillation with Xarelto in the past but he could not afford it. Patient had episode of atrial fibrillation in February 2023. 05/23 Patient states that he is feeling well today. He has no fevers. Most recent blood culture obtained on 05/21 is showing no growth at 24 hours. Yesterday, prescription was sent for Eliquis which was too expensive for him. 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 Blood pressure 153/82, heart rate 57, pulse ox 92% on room air. 05/24 Repeat blood cultures showing no growth at 48 hours. Blood pressure 168/85, heart rate 66, pulse ox 90 to 93% on room air. Patient is prepared for discharge home today. He has been started on Pradaxa for anticoagulation. PHYSICAL EXAMINATION: This is a 69-year-old male in no apparent distress at the time of my examination. HEENT: Head is atraumatic, normocephalic. Pupils are equal, round. Sclerae anict ace. Conjunctivae are clear. Mucous membranes of the mouth are moist. Neck is supple. There is no jugular venous distention. No carotid bruit is heard. CHEST EXAMINATION: Lungs are clear to auscultation. No chest wall tenderness is noted on palpation or with deep breathing. HEART EXAMINATION: Heart regular rate and rhythm. S1, S2 heard. No murmurs, gallops or rub. ABDOMEN: Soft, nontender. Bowel sounds are heard. EXTREMITIES: 2+ peripheral pulses with no evidence of peripheral edema and no c fermín tenderness noted. NEUROLOGIC EXAMINATION: Patient is awake, alert and oriented x3. IMPRESSION AND PLAN: Chest pain, type II non-ST elevated NE due to sepsis CAD status post PCI Hypertension Atrial fibrillation, paroxysmal Bacteremia with Enterobacter PLAN: Continue patient on aspirin 81 mg daily, atorvastatin 40 mg at bedtime, Toprol- XL 25 mg daily, losartan 25 mg daily Continue patient on Pradaxa Patient is cleared from cardiology for discharge and will follow-up in the office in 1 to 2 weeks. Nurse practitioner note has been reviewed, I agree with documented findings and plan of care. Patient was seen and examined. Objective - Vital Signs Vital signs: Vital Signs Temp 97.2 F L 05/24/24 08:00 Pulse 66 05/24/24 08:00 Resp 18 05/24/24 08:00 BP 168/85 05/24/24 08:00 Pulse Ox 90 L 05/24/24 08:00 FiO2 Intake & Output 05/23/24 05/24/24 05/24/24 18:59 06:59 18:59 Intake Total 1228 220 Output Total 875 900 900 Balance 019 -003 -759 Intake: Oral 1228 220 Output: Urine 875 900 900 Other: Voiding Method Urinal Urinal Urinal - Labs CBC & Chem 7: 05/21/24 12:29 05/24/24 06:55 Labs: Abnormal Lab Results - Last 24 Hours (Table) 05/24/24 Range/Units 06:55 Potassium 3.4 L (3.5-5.1) mmol/L Chloride 108 H (98-107) mmol/L Creatinine 0.62 L (0.66-1.25) mg/dL Calcium 8.0 L (8.4-10.2) mg/dL Microbiology - Last 24 Hours (Table) 05/21/24 12:29 Blood Culture - Preliminary Blood
== END 2024-05-24 14:03 | disposition home or self-care (01) | DRG 698 ==
LOC: EC 17:55 → 5NMEDONC 21:49 → OBSVTOIN 21:50 → 3SCARD 05-19 00:14
PROVIDERS: ADMIT Hospitalist; ATTEND Hospitalist
DX: T83.511A Infection and inflammatory reaction due to indwelling urethral catheter, initial encounter (principal); A41.9 Sepsis, unspecified organism; I21.A1 Myocardial infarction type 2; R65.20 Severe sepsis without septic shock; N12 Tubulo-interstitial nephritis, not specified as acute or chronic; F31.30 Bipolar disorder, current episode depressed, mild or moderate severity, unspecified; E78.5 Hyperlipidemia, unspecified; G31.83 Neurocognitive disorder with Lewy bodies; F02.A0 Dementia in other diseases classified elsewhere, mild, without behavioral disturbance, psychotic disturbance, mood disturbance, and anxiety; G20.A1 Parkinson's disease without dyskinesia, without mention of fluctuations; G25.0 Essential tremor; G25.81 Restless legs syndrome; I25.10 Atherosclerotic heart disease of native coronary artery without angina pectoris; I48.0 Paroxysmal atrial fibrillation; I50.9 Heart failure, unspecified; I11.0 Hypertensive heart disease with heart failure; K21.9 Gastro-esophageal reflux disease without esophagitis; K58.9 Irritable bowel syndrome, unspecified; N32.0 Bladder-neck obstruction; G47.33 Obstructive sleep apnea (adult) (pediatric); N40.0 Benign prostatic hyperplasia without lower urinary tract symptoms; I25.2 Old myocardial infarction; Z79.01 Long term (current) use of anticoagulants; Z79.02 Long term (current) use of antithrombotics/antiplatelets; Z79.82 Long term (current) use of aspirin; Z79.899 Other long term (current) drug therapy; Z80.7 Family history of other malignant neoplasms of lymphoid, hematopoietic and related tissues; Z87.442 Personal history of urinary calculi; Z95.5 Presence of coronary angioplasty implant and graft; Z98.1 Arthrodesis status; Z11.52 Encounter for screening for COVID-19
CPT/HCPCS: 36415; 71045; 71046; 76770; 80048; 80053; 81001; 82272; 83605; 84145; 84484; 85025; 85610; 85730; 87040; 87077; 87086; 87186; 87636; 93306; 96374; 96375; 99285

== ENCOUNTER 2024-07-28 10:46 | Inpatient (IN) | payer MEDICARE ==
--- NOTE | 2024-07-28 11:19 | ED ---
General Adult HPI - General Chief complaint: Shortness of Breath Stated complaint: SOB Time Seen by Provider: 07/28/24 11:00 Source: patient, RN notes reviewed, old records reviewed Mode of arrival: ambulatory Limitations: no limitations - History of Present Illness Initial comments: This is a 69-year-old male who presents to the emergency department with a past medical history significant for atrial fibrillation. Patient states today at home he became short of breath which he also started experiencing since Monday. Patient states that he was much worse though he exerted himself by climbing up the stairs and he states his heart rate was over 150 beats a minute. Patient feels better lying at rest in bed but he can still feel his heart racing. Patient denies any recent fever chills or cough. Patient denies any chest pain. Patient denies back pain. Patient denies any abdominal pain patient has nausea vomit diarrhea. Patient denies any calf pain patient has any leg swelling. - Related Data Home Medications Medication Instructions Recorded Confirmed Primidone [Mysoline] 100 mg PO DAILY 12/20/17 05/19/24 Memantine [Namenda] 10 mg PO BID 02/17/20 05/19/24 Pramipexole Di-HCl [Mirapex] 1.5 mg PO HS 02/17/20 05/19/24 Pregabalin [Lyrica] 100 mg PO BID 03/10/21 05/19/24 Sertraline [Zoloft] 200 mg PO DAILY 08/18/21 05/19/24 HYDROcodone/APAP 5-325MG [[place] 1 tab PO Q6H PRN 02/27/23 05/19/24 5-325] Metoprolol Succinate (ER) [Toprol 25 mg PO DAILY 02/17/24 05/19/24 XL] Primidone [Mysoline] 150 mg PO HS 02/17/24 05/19/24 Tamsulosin [Flomax] 0.4 mg PO DAILY 05/19/24 05/19/24 Previous Rx's Medication Instructions Recorded Aspirin 81 mg PO DAILY tab 11/25/22 Dabigatran [Pradaxa] 150 mg PO BID #60 capsule 05/22/24 Atorvastatin [Lipitor] 40 mg PO HS #30 tab 05/24/24 Ciprofloxacin HCl [Cipro] 500 mg PO BID 10 Days #20 tab 05/24/24 Losartan Potassium [Cozaar] 100 mg PO HS #30 tab 05/24/24 amLODIPine [Norvasc] 5 mg PO DAILY #30 tab 05/24/24 tiZANidine [Zanaflex] 2 mg PO TID PRN #60 tab 05/24/24 Allergies Allergy/AdvReac Type Severity Reaction Status Date / Time No Known Allergies Allergy Verified 07/28/24 10:50 Review of Systems ROS Statement: Those systems with pertinent positive or pertinent negative responses have been documented in the HPI. ROS Other: All systems not noted in ROS Statement are negative. Past Medical History Past Medical History: Coronary Artery Disease (CAD), Chest Pain / Angina, Heart Failure, Dementia, GERD/Reflux, Hyperlipidemia, Hypertension, Myocardial Infarction (VT), Neurologic Disorder, Pneumonia, Prostate Disorder, Renal Disease, Skin Disorder, Sleep Apnea/CPAP/BIPAP Additional Past Medical History / Comment(s): early parkinson's with essential tremors, "lewy body dementia" R nephrolithiasis with surgery, EDITH with no CPAP, Irritable Bowel Syndrome diarrhea off and on, pneumonia/bronchitis, BPH, blood in stool-EGD/colonoscopy were normal, past hiatal hernia(sx), past falls., kidney failure, Last Myocardial Infarction Date:: 06/09/13 History of Any Multi-Drug Resistant Organisms: None Reported Past Surgical History: Back Surgery, Heart Catheterization, Heart Catheterization With Stent, Hernia Repair Additional Past Surgical History / Comment(s): 05/2013 stent to LAD and then a cardiac cath which showed stent patent, Recent R kidney stone removal, 03/19/15 Laparoscopic Elizabeth fundlaplication. SKIN GRAFTS CHEST & BACK FROM BASSETT AT 13 YRS OLD., COLONOSCOPY. EGD, L [facility] eye surgery as toddler. c3 c4 fusion, c4 c5 fusion. Past Anesthesia/Blood Transfusion Reactions: No Reported Reaction Additional Past Anesthesia/Blood Transfusion Reaction / Comment(s): Pt received blood in 1967 without reaction. Date of Last Stent Placement:: 12/2017 Past Psychological History: Bipolar, Depression Smoking Status: Never smoker Past Alcohol Use History: None Reported Past Drug Use History: None Reported - Past Family History Mother Family Medical History: Liver Disease Additional Family Medical History / Comment(s): Mother was an alcoholic. She of cirrhosis of the liver at age 60yrs. Father Family Medical History: Cancer, Coronary Artery Disease (CAD), Myocardial Infarction (VT) Additional Family Medical History / Comment(s): SKIN CA. Father of a VT at age 65 yrs. Brother(s) Family Medical History: Cancer Additional Family Medical History / Comment(s): LEUKEMIA, LYMPH NODE CA AND MULTIPLE MYELOMA. General Exam - General Exam Comments Initial Comments: GENERAL: Patient is well-developed and well-nourished. Patient is nontoxic and well- hydrated and is in mild distress. ENT: Neck is soft and supple. No significant lymphadenopathy is noted. Oropharynx i s clear. Moist mucous membranes. Neck has full range of motion without eliciting any pain. EYES: The sclera were anicteric and conjunctiva were pink and moist. Extraocular movements were intact and pupils were equal round and reactive to light. Eyelids were unremarkable. PULMONARY: Unlabored respirations. Good breath sounds bilaterally. No audible rales rhonchi or wheezing was noted. CARDIOVASCULAR: Patient is tachycardic and is irregular. Patient's heart rate got up into the 130s when I was speaking with him ABDOMEN: Soft and nontender with normal bowel sounds. SKIN: Skin is clear with no lesions or rashes and otherwise unremarkable. NEUROLOGIC: Patient is alert and oriented x3. Cranial nerves II through XII are grossly intact. Motor and sensory are also intact. Normal speech, volume and content. Symmetrical smile. MUSCULOSKELETAL: Normal extremities with adequate strength and full range of motion. No lower extremity swelling or edema. No calf tenderness. LYMPHATICS: No significant lymphadenopathy is noted PSYCHIATRIC: Normal psychiatric evaluation. Limitations: no limitations Course Vital Signs 07/28/24 07/28/24 07/28/24 10:47 11:38 11:40 Temperature 97.7 F Pulse Rate 110 H 103 H 82 Respiratory 20 21 20 Rate Blood Pressure 112/81 89/58 O2 Sat by Pulse 96 Oximetry 07/28/24 07/28/24 07/28/24 11:45 11:50 11:55 Temperature Pulse Rate 80 77 Respiratory 20 18 Rate Blood Pressure 94/70 93/63 93/63 O2 Sat by Pulse Oximetry 07/28/24 07/28/24 07/28/24 12:05 12:10 12:15 Temperature Pulse Rate 80 73 73 Respiratory 18 20 24 Rate Blood Pressure 101/76 100/77 99/84 O2 Sat by Pulse Oximetry 07/28/24 07/28/24 07/28/24 12:20 12:25 12:30 Temperature Pulse Rate 71 64 71 Respiratory 22 23 21 Rate Blood Pressure 97/69 98/71 96/67 O2 Sat by Pulse Oximetry 07/28/24 07/28/24 07/28/24 12:35 12:40 12:45 Temperature Pulse Rate 73 80 75 Respiratory 22 23 22 Rate Blood Pressure 100/68 101/66 111/70 O2 Sat by Pulse Oximetry Medical Decision Making - Medical Decision Making EKG is interpreted by myself. EKG shows atrial fibrillation with rapid ventricular response at 115 bpm QRS is 92 QT interval 315 QTc is 383. Patient's EKG shows no ST segment ovation or depression Was pt. sent in by a medical professional or institution (ANDREA Alvarado, ARCHIVIST POLITICAL HISTORY, urgent care, hospital, or residential...) When possible be specific @ -No Did you speak to anyone other than the patient for history (EMS, parent, family, police, friend...)? What history was obtained from this source @ -No Did you review nursing and triage notes (agree or disagree)? Why? @ -I reviewed and agree with nursing and triage notes Were old charts reviewed (outside hosp., previous admission, EMS record, old EKG, old radiological studies, urgent care reports/EKG's, residential records)? Report findings @ -No old charts were reviewed Differential Diagnosis? @ -Differential Dyspnea: Coronary syndrome, arrhythmia, tamponade, asthma, COPD, pulmonary embolism, pneumonia, pneumothorax, pulmonary effusion, anaphylaxis, diabetic ketoacidosis, flailed chest, pulmonary contusion, diaphragmatic rupture, anemia, neuromusc ular, this is not meant to be an all-inclusive list. EKG interpreted by me (3pts min.). @ -As above X-rays interpreted by me (1pt min.). @ -Chest x-ray shows no acute abnormality CT interpreted by me (1pt min.). @ -None done U/S interpreted by me (1pt. min.). @ -None done What testing was considered but not performed or refused? (CT, X-rays, U/S, labs)? Why? @ -None What meds were considered but not given or refused? Why? @ -None Did you discuss the management of the patient with other professionals (professionals i.e. Dr., PA, ARCHIVIST POLITICAL HISTORY, lab, RT, psych nurse, geriatric social worker, increment manager, teacher, property officer, case resource manager)? Give summary @ -I spoke with [facility] hospitalist agreed to admit the patient admit the patient wrote admitting orders Was smoking cessation discussed for >3mins.? @ -No Was critical care preformed (if so, how long)? @ -35 minutes Were there social determinants of health that impacted care today? How? (Homelessness, low income, unemployed, alcoholism, drug addiction, transportation, low edu. Level, literacy, decrease access to med. care, nursing home, rehab)? @ -No Was there de-escalation of care discussed even if they declined (Discuss DNR or withdrawal of care, Hospice)? DNR status @ -No What co-morbidities impacted this encounter? (DM, HTN, Smoking, COPD, CAD, Can cer, CVA, ARF, Chemo, Hep., AIDS, mental health diagnosis, sleep apnea, morbid obesity)? @ -None Was patient admitted / discharged? Hospital course, mention meds given and route, prescriptions, significant lab abnormalities, going to OR and other pertinent info. @ -[facility] was [facility] on a Cardizem drip because of the atrial fibrillation with rapid ventricular response. Patient is already on a blood thinner. Patient will be admitted with a consult to cardiology Undiagnosed new problem with uncertain prognosis? @ -No Drug Therapy requiring intensive monitoring for toxicity (Heparin, Nitro, Insulin, Cardizem)? @ -No Were any procedures done? @ -No Diagnosis/symptom? @ -A-fib with rapid ventricular response Acute, or Chronic, or Acute on Chronic? @ -Acute Uncomplicated (without systemic symptoms) or Complicated (systemic symptoms)? @ -Complicated Side effects of treatment? @ -No Exacerbation, Progression, or Severe Exacerbation? @ -No Poses a threat to life or bodily function? How? (Chest pain, USA, VT, pneumonia, PE, COPD, DKA, ARF, appy, cholecystitis, CVA, Diverticulitis, Homicidal, Suicidal, threat to staff... and all critical care pts) @ -Yes this could lead to poor perfusion and endorgan dysfunction - Lab Data Result diagrams: 07/28/24 11:23 07/28/24 11:23 Lab Results 07/28/24 07/28/24 07/28/24 Range/Units 11:23 11:23 11:23 WBC 5.5 (3.8-10.6) k/uL RBC 4.46 (4.30-5.90) m/uL Hgb 13.3 (13.0-17.5) gm/dL Hct 40.2 (39.0-53.0) % MCV 90.3 (80.0-100.0) fL MCH 29.8 (25.0-35.0) pg MCHC 33.0 (31.0-37.0) g/dL RDW 15.3 (11.5-15.5) % Plt Count 216 (150-450) k/uL MPV 7.0 Neutrophils % 69 % Lymphocytes % 19 % Monocytes % 8 % Eosinophils % 2 % Basophils % 1 % Neutrophils # 3.8 (1.3-7.7) k/uL Lymphocytes # 1.0 (1.0-4.8) k/uL Monocytes # 0.5 (0-1.0) k/uL Eosinophils # 0.1 (0-0.7) k/uL Basophils # 0.0 (0-0.2) k/uL PT 11.0 (10.0-12.5) sec INR 1.0 (<1.2) APTT 24.1 (22.0-30.0) sec Sodium 140 (137-145) mmol/L Potassium 3.8 (3.5-5.1) mmol/L Chloride 106 (98-107) mmol/L Carbon Dioxide 25 (22-30) mmol/L Anion Gap 9 mmol/L BUN 18 (9-20) mg/dL Creatinine 0.81 (0.66-1.25) mg/dL Est GFR (CKD-EPI)AfAm >90 (>60 ml/min/1.73 sqM) Est GFR (CKD-EPI)NonAf >90 (>60 ml/min/1.73 sqM) Glucose 135 H (74-99) mg/dL Plasma Lactic Acid Sudheer (0.7-2.0) mmol/L Calcium 8.6 (8.4-10.2) mg/dL Magnesium 1.9 (1.6-2.3) mg/dL Total Bilirubin 0.6 (0.2-1.3) mg/dL AST 23 (17-59) U/L ALT 27 (4-49) U/L Alkaline Phosphatase 62 (38-126) U/L Troponin I (0.000-0.034) ng/mL NT-Pro-B Natriuret Pep 4720 pg/mL Total Protein 6.3 (6.3-8.2) g/dL Albumin 3.6 (3.5-5.0) g/dL 07/28/24 07/28/24 Range/Units 11:23 11:23 WBC (3.8-10.6) k/uL RBC (4.30-5.90) m/uL Hgb (13.0-17.5) gm/dL Hct (39.0-53.0) % MCV (80.0-100.0) fL MCH (25.0-35.0) pg MCHC (31.0-37.0) g/dL RDW (11.5-15.5) % Plt Count (150-450) k/uL MPV Neutrophils % % Lymphocytes % % Monocytes % % Eosinophils % % Basophils % % Neutrophils # (1.3-7.7) k/uL Lymphocytes # (1.0-4.8) k/uL Monocytes # (0-1.0) k/uL Eosinophils # (0-0.7) k/uL Basophils # (0-0.2) k/uL PT (10.0-12.5) sec INR (<1.2) APTT (22.0-30.0) sec Sodium (137-145) mmol/L Potassium (3.5-5.1) mmol/L Chloride (98-107) mmol/L Carbon Dioxide (22-30) mmol/L Anion Gap mmol/L BUN (9-20) mg/dL Creatinine (0.66-1.25) mg/dL Est GFR (CKD-EPI)AfAm (>60 ml/min/1.73 sqM) Est GFR (CKD-EPI)NonAf (>60 ml/min/1.73 sqM) Glucose (74-99) mg/dL Plasma Lactic Acid Sudheer 2.1 H* (0.7-2.0) mmol/L Calcium (8.4-10.2) mg/dL Magnesium (1.6-2.3) mg/dL Total Bilirubin (0.2-1.3) mg/dL AST (17-59) U/L ALT (4-49) U/L Alkaline Phosphatase (38-126) U/L Troponin I <0.012 (0.000-0.034) ng/mL NT-Pro-B Natriuret Pep pg/mL Total Protein (6.3-8.2) g/dL Albumin (3.5-5.0) g/dL Critical Care Time Critical Care Time: Yes Total Critical Care Time: 35 Disposition Clinical Impression: Atrial fibrillation with rapid ventricular response Disposition: ADMITTED IP TO THIS HOSP Referrals: Román Gutierrez DO [Primary Care Provider] - 1-2 days Time of Disposition: 13:21
[2024-07-28 11:33] LABS: Basophils % (A) 1 %; Eosinophils # (A) 0.1 k/uL (0-0.7); Eosinophils % (A) 2 %; HCT 40.2 % (39.0-53.0); HGB 13.3 gm/dL (13.0-17.5); Lymphocytes % (A) 19 %; MCH 29.8 pg (25.0-35.0); MCV 90.3 fL (80.0-100.0); Monocytes # (A) 0.5 k/uL (0-1.0); Monocytes % (A) 8 %; Neutrophils # (A) 3.8 k/uL (1.3-7.7); Neutrophils % (A) 69 %; Platelet Count 216 k/uL (150-450); RBC 4.46 m/uL (4.30-5.90); RDW 15.3 % (11.5-15.5); WBC 5.5 k/uL (3.8-10.6)
[2024-07-28] MEDS: DILTIAZEM 125 MG in SODIUM CHLORIDE 0.9% 100 ML IV SCH (11:34)
[2024-07-28] MEDS: DILTIAZEM DRIP BOLUS FROM BAG 1 MG SOLN IV ONE (11:34)
[2024-07-28] MEDS: MAGNESIUM SULFATE-D5W PMX 1 GM in DEXTROSE/WATER 1 100ML.BAG IVPB ONE (11:41)
[2024-07-28 11:47] LABS: ALT 27 U/L (4-49); AST 23 U/L (17-59); African American GFR (CKD) >90 (>60 ml/min/1.73 sqM); Albumin 3.6 g/dL (3.5-5.0); Alkaline Phosphatase 62 U/L (38-126); Anion Gap 9 mmol/L; Blood Urea Nitrogen 18 mg/dL (9-20); Calcium 8.6 mg/dL (8.4-10.2); Carbon Dioxide 25 mmol/L (22-30); Chloride 106 mmol/L (98-107); Glucose 135 mg/dL (74-99); Magnesium 1.9 mg/dL (1.6-2.3); Non-African American GFR(CKD) >90 (>60 ml/min/1.73 sqM); Potassium 3.8 mmol/L (3.5-5.1); Sodium 140 mmol/L (137-145); Total Bilirubin 0.6 mg/dL (0.2-1.3); Total Protein 6.3 g/dL (6.3-8.2)
[2024-07-28 11:54] LABS: NT-Pro-B-Type Natriuretic Pept 4720 pg/mL
[2024-07-28 12:03] LABS: Partial Thromboplastin Time 24.1 sec (22.0-30.0)
--- NOTE | 2024-07-28 12:05 | XR ---
EXAMINATION TYPE: XR chest 2V DATE OF EXAM: 07/28/2024 COMPARISON: 05/21/2024 HISTORY: Difficulty breathing TECHNIQUE: Frontal and lateral views of the chest are obtained. FINDINGS: There is no focal air space opacity, pleural effusion, or pneumothorax seen. The cardiac silhouette size is within normal limits. The osseous structures are intact. IMPRESSION: No acute cardiopulmonary process.
[2024-07-28] MEDS ORDERED: NITROGLYCERIN SL TABS 0.4 MG TAB SUBLINGUAL PRN (13:21)
[2024-07-28] MEDS: NITROGLYCERIN OINT 1 INCH/GM PACKET TOPICAL SCH (19:04)
[2024-07-28] MEDS: PRAMIPEXOLE 0.5 MG TAB PO SCH (20:01)
[2024-07-28] MEDS: MEMANTINE 10 MG TAB PO SCH (20:01)
[2024-07-28] MEDS: PREGABALIN 100 MG CAP PO SCH (20:01)
[2024-07-28] MEDS: ATORVASTATIN 40 MG TAB PO SCH (20:01)
[2024-07-28] MEDS: DABIGATRAN 150 MG CAP PO SCH (20:01)
[2024-07-28] MEDS: LOSARTAN 50 MG TAB PO SCH (20:01)
[2024-07-28] MEDS: PRIMIDONE 50 MG TAB PO SCH (20:04)
--- NOTE | 2024-07-28 22:29 | P.HPIM ---
History of Present Illness H&P Date: 07/28/24 Chief Complaint: Shortness of breath Patient is a 69-year-old male with a past medical history of coronary artery disease with stent placement, atrial fibrillation, on anticoagulation with Pradaxa hypertension,, hyperlipidemia, history of VA, prostate disorder, practice sleep apnea, IBS, liver body dementia and Parkinson's tremors, bipolar disorder and depression presents to ER with complaints of shortness of breath started yesterday. Patient had much worse difficulty in breathing and worsens with walking. Patient also notices his heart rate increased to 150s. Patient went to restoration today where he felt difficulty in breathing with walking. Patient states that he has history of VA x 4 and history of 5 stent placement Denied any fever or chills. No cough or sputum production. No complaints of chest pain. Denied any leg swelling. Denies abdominal pain. No nausea or vomiting. Patient states that he had neck surgery about 6 weeks ago and also had UTI and sepsis 4 weeks ago completed antibiotic course about 3 weeks ago. On admission chest x-ray showed no acute cardiopulmonary process. EKG showed atrial fibrillation with rapid ventricular response 115 Laboratory data showed WBC 5.5 hemoglobin 13.3 and RDW 15.3 and platelets 216 sodium 140 potassium 3.8 chloride 106 bicarbonate 25 BUN 18 and creatinine 0.81 blood sugar 135 lactic acid 2.1 on admission WBC not elevated troponin x 3 negative proBNP 4720. . Review of Systems Constitutional: Patient denies any fever or chills . No generalized weakness or weight loss. Abdomen: Patient denied nausea vomiting and diarrhea and abdominal pain. Cardiovascular: Patient denies any chest pain. Exertional shortness of breath. Palpitations. No leg swelling Respiratory: patient denied any cough or sputum production. No shortness of breath Neurologic: Patient denied any numbness or tingling. no headache. Musculoskeletal: Patient denies any complaints of joint swelling or deformity. Skin: Negative Psychiatric: Negative Endocrine: No heat or cold intolerance. No recent weight gain. Genitourinary: No dysuria or hematuria. All other 14 point ROS negative except the above Past Medical History Past Medical History: Coronary Artery Disease (CAD), Chest Pain / Angina, Heart Failure, Dementia, GERD/Reflux, Hyperlipidemia, Hypertension, Myocardial Infarction (VA), Neurologic Disorder, Pneumonia, Prostate Disorder, Renal Disease, Skin Disorder, Sleep Apnea/CPAP/BIPAP Additional Past Medical History / Comment(s): early parkinson's with essential tremors, "lewy body dementia" R nephrolithiasis with surgery, EDITH with no CPAP, Irritable Bowel Syndrome diarrhea off and on, pneumonia/bronchitis, BPH, blood in stool-EGD/colonoscopy were normal, past hiatal hernia(sx), past falls., kidney failure, Last Myocardial Infarction Date:: 06/09/13 History of Any Multi-Drug Resistant Organisms: None Reported Past Surgical History: Back Surgery, Heart Catheterization, Heart Catheterization With Stent, Hernia Repair Additional Past Surgical History / Comment(s): 05/2013 stent to LAD and then a cardiac cath which showed stent patent, Recent R kidney stone removal, 03/19/15 Laparoscopic Elizabeth fundlaplication. SKIN GRAFTS CHEST & BACK FROM BASSETT AT 13 YRS OLD., COLONOSCOPY. EGD, [facility] surgery as toddler. c3 c4 fusion, c4 c5 fusion. Past Anesthesia/Blood Transfusion Reactions: No Reported Reaction Additional Past Anesthesia/Blood Transfusion Reaction / Comment(s): Pt received blood in 1967 without reaction. Date of Last Stent Placement:: 12/2017 Past Psychological History: Bipolar, Depression Additional Psychological History / Comment(s): Pt lives with his . He has depression but states medication for this is working. He is normally independent. Smoking Status: Never smoker Past Alcohol Use History: None Reported Additional Past Alcohol Use History / Comment(s): Pt quit drinking alcohol in 2 005( drank almost on daily basis) Past Drug Use History: None Reported - Past Family History Mother Family Medical History: Liver Disease Additional Family Medical History / Comment(s): Mother was an alcoholic. She of cirrhosis of the liver at age 60yrs. Father Family Medical History: Cancer, Coronary Artery Disease (CAD), Myocardial Infarction (VA) Additional Family Medical History / Comment(s): SKIN CA. Father of a VA at age 65 yrs. Brother(s) Family Medical History: Cancer Additional Family Medical History / Comment(s): LEUKEMIA, LYMPH NODE CA AND MULTIPLE MYELOMA. Medications and Allergies Home Medications Medication Instructions Recorded Confirmed Type Primidone [Mysoline] 100 mg PO DAILY 12/20/17 07/28/24 History Memantine [Namenda] 10 mg PO BID 02/17/20 07/28/24 History Pramipexole Di-HCl [Mirapex] 1.5 mg PO HS 02/17/20 07/28/24 History Pregabalin [Lyrica] 100 mg PO BID 03/10/21 07/28/24 History Sertraline [Zoloft] 200 mg PO DAILY 08/18/21 07/28/24 History Aspirin 81 mg PO DAILY tab 11/25/22 07/28/24 Rx HYDROcodone/APAP 5-325MG [[place] 1 tab PO Q6H PRN 02/27/23 07/28/24 History 5-325] Metoprolol Succinate (ER) [Toprol 25 mg PO DAILY 02/17/24 07/28/24 History XL] Primidone [Mysoline] 150 mg PO HS 02/17/24 07/28/24 History Tamsulosin [Flomax] 0.8 mg PO DAILY 05/19/24 07/28/24 History Dabigatran [Pradaxa] 150 mg PO BID #60 capsule 05/22/24 07/28/24 Rx Atorvastatin [Lipitor] 40 mg PO HS #30 tab 05/24/24 07/28/24 Rx Losartan Potassium [Cozaar] 100 mg PO HS #30 tab 05/24/24 07/28/24 Rx amLODIPine [Norvasc] 5 mg PO DAILY #30 tab 05/24/24 07/28/24 Rx tiZANidine [Zanaflex] 2 mg PO TID PRN #60 tab 05/24/24 07/28/24 Rx Allergies Allergy/AdvReac Type Severity Reaction Status Date / Time No Known Allergies Allergy Verified 07/28/24 10:50 Physical Exam Vitals: Vital Signs Temp Pulse Pulse Pulse Resp BP BP 07/28/24 19:56 97.9 F 97 16 129/86 07/28/24 19:54 97 07/28/24 16:04 96 18 102/74 07/28/24 16:00 97.8 F 85 18 102/74 07/28/24 15:02 98.0 F 78 18 117/77 07/28/24 14:45 97.4 F L 81 18 125/100 07/28/24 14:30 83 20 120/91 07/28/24 14:00 80 21 127/89 07/28/24 13:30 70 22 115/86 07/28/24 13:15 79 19 98/80 07/28/24 13:00 70 19 109/69 07/28/24 12:45 75 22 111/70 07/28/24 12:40 80 23 101/66 07/28/24 12:35 73 22 100/68 07/28/24 12:30 71 21 96/67 07/28/24 12:25 64 23 98/71 07/28/24 12:20 71 22 97/69 07/28/24 12:15 73 24 99/84 07/28/24 12:10 73 20 100/77 07/28/24 12:05 80 18 101/76 07/28/24 11:55 93/63 07/28/24 11:50 77 18 93/63 07/28/24 11:45 80 20 94/70 07/28/24 11:40 82 20 89/58 07/28/24 11:38 103 H 21 07/28/24 10:47 97.7 F 110 H 20 112/81 Pulse Ox 07/28/24 19:56 94 L 07/28/24 19:54 07/28/24 16:04 95 07/28/24 16:00 94 L 07/28/24 15:02 93 L 07/28/24 14:45 96 07/28/24 14:30 95 07/28/24 14:00 07/28/24 13:30 07/28/24 13:15 07/28/24 13:00 07/28/24 12:45 07/28/24 12:40 07/28/24 12:35 07/28/24 12:30 07/28/24 12:25 07/28/24 12:20 07/28/24 12:15 07/28/24 12:10 07/28/24 12:05 07/28/24 11:55 07/28/24 11:50 07/28/24 11:45 07/28/24 11:40 07/28/24 11:38 07/28/24 10:47 96 Intake and Output 07/28/24 07/28/24 07/28/24 06:59 14:59 22:59 Other: Weight 99.79 kg 99.79 kg PHYSICAL EXAMINATION: Patient is lying in the bed comfortably, no acute distress, awake alert and oriented.. HEENT: Normocephalic. Neck is supple. Pupils reactive. Nostrils clear. Oral cavity is moist. Neck reveals no JVD, carotid bruits, or thyromegaly. CHEST EXAMINATION: Trachea is central. Symmetrical expansion. Lung el clear to auscultation and percussion. CARDIAC: Normal S1, S2 with no gallops. No murmurs. Irregularly irregular rhythm. ABDOMEN: Soft. Bowel sounds normal. No organomegaly. No abdominal bruits. Extremities: reveal no edema. No clubbing or cyanosis Neurologically awake, alert, oriented x3 with well-coordinated movements. Mild cognitive impairment no focal deficits noted Skin: No rash or skin lesions. Psychiatric: Coperative. Nonsuicidal Musculoskeletal: No joint swelling or deformity. Normal range of motion. Results CBC & Chem 7: 07/28/24 11:23 07/28/24 11:23 Labs: Abnormal Lab Results - Last 24 Hours (Table) 07/28/24 07/28/24 Range/Units 11:23 11:23 Glucose 135 H (74-99) mg/dL Plasma Lactic Acid Sudheer 2.1 H* (0.7-2.0) mmol/L Thrombosis Risk Factor Assmnt - DVT/VTE Prophylaxis DVT/VTE Prophylaxis: Pharmacologic Prophylaxis ordered - Choose All That Apply Each Risk Factor Represents 2 Points: Age 61-74 years Thrombosis Risk Factor Assessment Total Risk Factor Score: 2 Thrombosis Risk Factor Assessment Level: Low Risk Assessment and Plan Assessment: Paroxysmal atrial fibrillation rapid ventricular response Exertional dyspnea secondary to above Elevated proBNP Coronary artery history of stent placement x 5 Chronic CHF with preserved EF. Obstructive sleep apnea not on CPAP Lewy body dementia Parkinson disorder with tremors History of IBS Bipolar and depression History of bladder outflow obstruction on Flomax Recent cervical spine surgery at [facility] GERD DVT prophylaxis patient already on anticoagulation Plan: Patient will be continued on telemonitoring. Started on Cardizem drip and continue with metoprolol XL 25 mg p.o. daily. Continue with anticoagulation with Pradaxa. Continue home medications and cardiology evaluation. Follow-up closely. Time with Patient: Greater than 30
[2024-07-29] MEDS ORDERED: ASPIRIN 325 MG TAB PO SCH (09:00)
[2024-07-29] MEDS: METOPROLOL SUCCINATE (ER) 25 MG TAB.ER.24H PO SCH (09:11)
[2024-07-29] MEDS: PRIMIDONE 50 MG TAB PO SCH (09:11)
[2024-07-29] MEDS: SERTRALINE 100 MG TAB PO SCH (09:11)
[2024-07-29] MEDS: amLODIPine 5 MG TAB PO SCH (09:12)
[2024-07-29] MEDS: TAMSULOSIN 0.4 MG CAP.ER.24H PO SCH (09:12)
[2024-07-29] MEDS: ASPIRIN 81 MG PO SCH (09:12)
[2024-07-29] MEDS: DEXTROSE 5% IN WATER 100 ML with AMIODARONE 150 MG IV ONE (10:00)
--- NOTE | 2024-07-29 10:05 | P.CRDCN ---
History of Present Illness Consult date: 07/29/24 Consult reason: atrial fibrillation (With RVR) History of present illness: This is a 69-year-old male patient of Dr. Hernandez with past medical history of paroxysmal atrial fibrillation, coronary artery disease with prior stenting of the RCA, LCx and LAD, hypertension, dyslipidemia, heart failure with preserved EF, carotid atherosclerosis. We have been asked to evaluate the patient for A- fib with RVR. Patient gives history that just before [facility] on Monday he could feel that his heart was racing and he had shortness of breath. He states he has been taking all of his medications as directed but there was a problem getting the anticoagulation and because of this he has only been on it for 2 weeks Consistently. Patient is now rate controlled in atrial fibrillation but he states that he has shortness of breath with activity just getting to the bathroom. Blood pressure 119/64, heart rate is in the 80s and 90s. Pulse ox 95% on 2 L nasal cannula. EKG: Atrial fibrillation at ventricular rate of 115 bpm Chest x-ray: No acute process Laboratory studies: CBC within normal limits. Electrolytes and renal function normal. Lactic acid initially 2.1 and repeat 1.1. Troponins negative x 3. proBNP 4720. Home cardiac medications: Amlodipine 5 mg daily, aspirin 81 mg daily, atorvastatin 40 mg at bedtime, Pradaxa 150 mg twice daily, losartan 100 mg at bedtime, Toprol XL 25 mg daily. Cardiac catheterization performed 08/05/[address] Sp Gibbons revealed patent stents within the LAD, circumflex and right coronary artery. Very distal left anterior descending coronary artery has significant stenosis but it is a very small caliber vessel and patient advised for medical therapy. Diagonal branch is a small caliber vessel shows diffuse disease. Echocardiogram performed 05/23/2024 reveals normal left ventricular size and systo lic function, mild AR, mild MR, mild tricuspid regurgitation with no evidence of pulmonary hypertension. Review Of Systems: At the time of my exam: CONSTITUTIONAL: Denies fever or chills. HEENT: Denies blurred vision, vision changes, or eye pain. Denies hemoptysis CARDIOVASCULAR: Denies chest pain. Denies orthopnea. Denies PND. Denies palpitations RESPIRATORY: Denies shortness of breath. + Dyspnea on exertion GASTROINTESTINAL: Denies abdominal pain. Denies nausea or vomiting. HEMATOLOGIC: Denies bleeding disorders. GENITOURINARY: Denies any blood in urine. SKIN: Denies puritis. Denies rash. Physical examination: Gen: This is a 69-year-old male appears to be in no acute distress VS: reviewed HEENT: Head is atraumatic, normocephalic. Pupils equal, round. Sclerae is anicteric. NECK: Supple. No JVD. LUNGS: Clear to auscultation. No wheezes or rhonchi. No intercostal retractions. HEART: Irregular rate and rhythm. Systolic murmur at the right upper sternal border. ABDOMEN: Soft No tenderness. EXTREMITIES: No pedal edema. No calf tenderness. NEUROLOGICAL: Patient is awake, alert and oriented x3. Assessment: Paroxysmal atrial fibrillation presenting with RVR, currently rate controlled but very symptomatic History of coronary artery disease with prior stenting of the RCA, LCx and LAD Hypertension Dyslipidemia Chronic heart failure with preserved EF Carotid atherosclerosis Plan: Resume patient's home cardiac medications Start patient on amiodarone bolus followed by drip Schedule patient for SUSY and cardioversion tomorrow with Dr. Hernandez No need to repeat echocardiogram Further recommendations to follow based upon clinical course Thank you kindly for this consultation. Nurse practitioner note has been reviewed, I agree with documented findings and plan of care. Patient was seen and examined. Past Medical History Past Medical History: Coronary Artery Disease (CAD), Chest Pain / Angina, Heart Failure, Dementia, GERD/Reflux, Hyperlipidemia, Hypertension, Myocardial Infarction ([place]), Neurologic Disorder, Pneumonia, Prostate Disorder, Renal Disease, Skin Disorder, Sleep Apnea/CPAP/BIPAP Additional Past Medical History / Comment(s): early parkinson's with essential tremors, "lewy body dementia" R nephrolithiasis with surgery, EDITH with no CPAP, Irritable Bowel Syndrome diarrhea off and on, pneumonia/bronchitis, BPH, blood in stool-EGD/colonoscopy were normal, past hiatal hernia(sx), past falls., kidney failure, Last Myocardial Infarction Date:: 06/09/13 History of Any Multi-Drug Resistant Organisms: None Reported Past Surgical History: Back Surgery, Heart Catheterization, Heart Catheterization With Stent, Hernia Repair Additional Past Surgical History / Comment(s): 05/2013 stent to LAD and then a cardiac cath which showed stent patent, Recent R kidney stone removal, 03/19/15 Laparoscopic Elizabeth fundlaplication. SKIN GRAFTS CHEST & BACK FROM [place] AT 13 YRS OLD., COLONOSCOPY. EGD, L lazy eye surgery as toddler. c3 c4 fusion, c4 c5 fusion. Past Anesthesia/Blood Transfusion Reactions: No Reported Reaction Additional Past Anesthesia/Blood Transfusion Reaction / Comment(s): Pt received blood in 1967 without reaction. Date of Last Stent Placement:: 12/2017 Past Psychological History: Bipolar, Depression Additional Psychological History / Comment(s): Pt lives with his . He has depression but states medication for this is working. He is normally independe nt. Smoking Status: Never smoker Past Alcohol Use History: None Reported Additional Past Alcohol Use History / Comment(s): Pt quit drinking alcohol in 2004( drank almost on daily basis) Past Drug Use History: None Reported - Past Family History Mother Family Medical History: Liver Disease Additional Family Medical History / Comment(s): Mother was an alcoholic. She of cirrhosis of the liver at age 60yrs. Father Family Medical History: Cancer, Coronary Artery Disease (CAD), Myocardial Infarction ([place]) Additional Family Medical History / Comment(s): SKIN CA. Father of a [place] at age 65 yrs. Brother(s) Family Medical History: Cancer Additional Family Medical History / Comment(s): LEUKEMIA, LYMPH NODE CA AND MULTIPLE MYELOMA. Medications and Allergies Home Medications Medication Instructions Recorded Confirmed Type Primidone [Mysoline] 100 mg PO DAILY 12/20/17 07/28/24 History Memantine [Namenda] 10 mg PO BID 02/17/20 07/28/24 History Pramipexole Di-HCl [Mirapex] 1.5 mg PO HS 02/17/20 07/28/24 History Pregabalin [Lyrica] 100 mg PO BID 03/10/21 07/28/24 History Sertraline [Zoloft] 200 mg PO DAILY 08/18/21 07/28/24 History Aspirin 81 mg PO DAILY tab 11/25/22 07/28/24 Rx HYDROcodone/APAP 5-325MG [[place] 1 tab PO Q6H PRN 02/27/23 07/28/24 History 5-325] Metoprolol Succinate (ER) [Toprol 25 mg PO DAILY 02/17/24 07/28/24 History XL] Primidone [Mysoline] 150 mg PO HS 02/17/24 07/28/24 History Tamsulosin [Flomax] 0.8 mg PO DAILY 05/19/24 07/28/24 History Dabigatran [Pradaxa] 150 mg PO BID #60 capsule 05/22/24 07/28/24 Rx Atorvastatin [Lipitor] 40 mg PO HS #30 tab 05/24/24 07/28/24 Rx Losartan Potassium [Cozaar] 100 mg PO HS #30 tab 05/24/24 07/28/24 Rx amLODIPine [Norvasc] 5 mg PO DAILY #30 tab 05/24/24 07/28/24 Rx tiZANidine [Zanaflex] 2 mg PO TID PRN #60 tab 05/24/24 07/28/24 Rx Allergies Allergy/AdvReac Type Severity Reaction Status Date / Time No Known Allergies Allergy Verified 07/28/24 10:50 Physical Exam Vitals: Vital Signs Temp Pulse Pulse Pulse Resp BP BP 07/29/24 08:18 07/29/24 04:00 98.0 F 87 18 111/67 07/29/24 02:00 97 07/29/24 00:00 82 16 116/68 07/28/24 19:56 97.9 F 97 16 129/86 07/28/24 19:54 97 07/28/24 16:04 96 18 102/74 07/28/24 16:00 97.8 F 85 18 102/74 07/28/24 15:02 98.0 F 78 18 117/77 07/28/24 14:45 97.4 F L 81 18 125/100 07/28/24 14:30 83 20 120/91 07/28/24 14:00 80 21 127/89 07/28/24 13:30 70 22 115/86 07/28/24 13:15 79 19 98/80 07/28/24 13:00 70 19 109/69 07/28/24 12:45 75 22 111/70 07/28/24 12:40 80 23 101/66 07/28/24 12:35 73 22 100/68 07/28/24 12:30 71 21 96/67 07/28/24 12:25 64 23 98/71 07/28/24 12:20 71 22 97/69 07/28/24 12:15 73 24 99/84 07/28/24 12:10 73 20 100/77 07/28/24 12:05 80 18 101/76 07/28/24 11:55 93/63 07/28/24 11:50 77 18 93/63 07/28/24 11:45 80 20 94/70 07/28/24 11:40 82 20 89/58 07/28/24 11:38 103 H 21 07/28/24 10:47 97.7 F 110 H 20 112/81 Pulse Ox 07/29/24 08:18 89 L 07/29/24 04:00 93 L 07/29/24 02:00 07/29/24 00:00 94 L 07/28/24 19:56 94 L 07/28/24 19:54 07/28/24 16:04 95 07/28/24 16:00 94 L 07/28/24 15:02 93 L 07/28/24 14:45 96 07/28/24 14:30 95 07/28/24 14:00 07/28/24 13:30 07/28/24 13:15 07/28/24 13:00 07/28/24 12:45 07/28/24 12:40 07/28/24 12:35 07/28/24 12:30 07/28/24 12:25 07/28/24 12:20 07/28/24 12:15 07/28/24 12:10 07/28/24 12:05 07/28/24 11:55 07/28/24 11:50 07/28/24 11:45 07/28/24 11:40 07/28/24 11:38 07/28/24 10:47 96 Intake and Output 07/28/24 07/29/24 07/29/24 22:59 06:59 14:59 Intake Total 118 Balance 118 Intake: Oral 118 Other: Weight 99.79 kg 100.8 kg Results 07/28/24 11:23 07/28/24 11:23 Cardiac Enzymes 07/28/24 07/28/24 07/28/24 Range/Units 11:23 11:23 14:00 AST 23 (17-59) U/L Troponin I <0.012 <0.012 (0.000-0.034) ng/mL 07/28/24 Range/Units 18:16 AST (17-59) U/L Troponin I <0.012 (0.000-0.034) ng/mL Coagulation 07/28/24 Range/Units 11:23 PT 11.0 (10.0-12.5) sec APTT 24.1 (22.0-30.0) sec CBC 07/28/24 Range/Units 11:23 WBC 5.5 (3.8-10.6) k/uL RBC 4.46 (4.30-5.90) m/uL Hgb 13.3 (13.0-17.5) gm/dL Hct 40.2 (39.0-53.0) % Plt Count 216 (150-450) k/uL Comprehensive Metabolic Panel 07/28/24 Range/Units 11:23 Sodium 140 (137-145) mmol/L Potassium 3.8 (3.5-5.1) mmol/L Chloride 106 (98-107) mmol/L Carbon Dioxide 25 (22-30) mmol/L BUN 18 (9-20) mg/dL Creatinine 0.81 (0.66-1.25) mg/dL Glucose 135 H (74-99) mg/dL Calcium 8.6 (8.4-10.2) mg/dL AST 23 (17-59) U/L ALT 27 (4-49) U/L Alkaline Phosphatase 62 (38-126) U/L Total Protein 6.3 (6.3-8.2) g/dL Albumin 3.6 (3.5-5.0) g/dL Current Medications Generic Name Dose Route Start Last Admin Trade Name Freq PRN Reason Stop Dose Admin Hydrocodone Bitart/Acetaminophen 1 each 07/28/24 17:53 Hydrocodone/Apap 5-325mg 1 Each Tab PO Q6H PRN Pain Amlodipine Besylate 5 mg 07/29/24 09:00 Amlodipine 5 Mg Tab PO DAILY DELORES Aspirin 81 mg 07/29/24 09:00 Aspirin 81 Mg PO DAILY DELORES Atorvastatin Calcium 40 mg 07/28/24 21:00 07/28/24 20:01 Atorvastatin 40 Mg Tab PO 40 mg HS DELORES Administration Dabigatran 150 mg 07/28/24 21:00 07/28/24 20:01 Dabigatran 150 Mg Cap PO 150 mg BID DELORES Administration Protocol Diltiazem HCl 125 mg/ Sodium 125 mls @ 5 mls/hr 07/28/24 11:15 07/28/24 11:34 Chloride IV 5 mg/hr .Q24H DELORES 5 mls/hr Administration 5 MG/HR Losartan Potassium 100 mg 07/28/24 21:00 07/28/24 20:01 Losartan 50 Mg Tab PO 100 mg HS DELORES Administration Memantine 10 mg 07/28/24 21:00 07/28/24 20:01 Memantine 10 Mg Tab PO 10 mg BID DELORES Administration Metoprolol Succinate 25 mg 07/29/24 09:00 Metoprolol Succinate (Er) 25 Mg Tab.Er.24h PO DAILY [facility] Nitroglycerin 0.4 mg 07/28/24 13:21 Nitroglycerin Sl Tabs 0.4 Mg Tab SUBLINGUAL Q5M PRN Chest Pain Nitroglycerin 1 inch 07/28/24 18:00 07/29/24 06:10 Nitroglycerin Oint 1 Inch/Gm Packet TOPICAL 1 inch Q6HR DELORES Administration Pramipexole Dihydrochloride 1.5 mg 07/28/24 21:00 07/28/24 20:01 Pramipexole 0.5 Mg Tab PO 1.5 mg HS DELORES Administration Pregabalin 100 mg 07/28/24 21:00 07/28/24 20:01 Pregabalin 100 Mg Cap PO 100 mg BID DELORES Administration Primidone 100 mg 07/29/24 09:00 Primidone 50 Mg Tab PO DAILY [facility] Primidone 150 mg 07/28/24 21:00 07/28/24 20:04 Primidone 50 Mg Tab PO 150 mg HS DELORES Administration Sertraline HCl 200 mg 07/29/24 09:00 Sertraline 100 Mg Tab PO DAILY [facility] Tamsulosin HCl 0.8 mg 07/29/24 09:00 Tamsulosin 0.4 Mg Cap.Er.24h PO DAILY [facility] Tizanidine HCl 2 mg 07/28/24 17:53 Tizanidine 4 Mg Tab PO TID PRN Muscle Spasm Intake and Output 07/28/24 07/29/24 07/29/24 22:59 06:59 14:59 Intake Total 118 Balance 118 Intake: Oral 118 Other: Weight 99.79 kg 100.8 kg 07/28/24 11:23 07/28/24 11:23
[2024-07-29] MEDS: DEXTROSE 5% IN WATER 250 ML with AMIODARONE 300 MG IV ONE (10:18)
[2024-07-29] MEDS: AMIODARONE 360 MG in DEXTROSE 5% IN WATER 200 ML IV ONE (10:41)
[2024-07-29 11:03] LABS: Chol/HDL Ratio 3.97 Ratio; LDL Cholesterol,Calculated 64.9 mg/dL (0.0-131.0)
[2024-07-29] MEDS: SODIUM CHLORIDE 0.9% 1,000 ML IV SCH (12:12)
[2024-07-29] MEDS: AMIODARONE 450 MG in DEXTROSE 5% IN WATER 250 ML IV SCH (16:24)
[2024-07-29] MEDS: tiZANidine 4 MG TAB PO PRN (20:07)
[2024-07-29] MEDS: HYDROcodone/APAP 5-325MG 1 EACH TAB PO PRN (23:15)
[2024-07-30 04:45] LABS: Glucose,Whole Blood 125 mg/dL (70-110)
[2024-07-30 06:48] LABS: Basophils % (A) 1 %; Eosinophils # (A) 0.2 k/uL (0-0.7); Eosinophils % (A) 3 %; HCT 36.5 % (39.0-53.0); HGB 11.8 gm/dL (13.0-17.5); Lymphocytes # (A) 1.2 k/uL (1.0-4.8); Lymphocytes % (A) 22 %; MCH 29.6 pg (25.0-35.0); MCHC 32.3 g/dL (31.0-37.0); MCV 91.5 fL (80.0-100.0); Mean Platelet Volume 7.8; Monocytes # (A) 0.5 k/uL (0-1.0); Monocytes % (A) 9 %; Neutrophils # (A) 3.6 k/uL (1.3-7.7); Neutrophils % (A) 63 %; Platelet Count 176 k/uL (150-450); RBC 3.99 m/uL (4.30-5.90); RDW 15.7 % (11.5-15.5); WBC 5.6 k/uL (3.8-10.6)
[2024-07-30 07:04] LABS: African American GFR (CKD) >90 (>60 ml/min/1.73 sqM); Anion Gap 5 mmol/L; Blood Urea Nitrogen 14 mg/dL (9-20); Calcium 8.4 mg/dL (8.4-10.2); Carbon Dioxide 26 mmol/L (22-30); Chloride 109 mmol/L (98-107); Glucose 111 mg/dL (74-99); Non-African American GFR(CKD) >90 (>60 ml/min/1.73 sqM); Potassium 4.1 mmol/L (3.5-5.1); Sodium 140 mmol/L (137-145)
--- NOTE | 2024-07-30 12:28 | P.PN ---
Subjective Progress Note Date: 07/30/24 Consult reason: atrial fibrillation (With RVR) History of present illness: This is a 69-year-old male patient of Dr. Hernandez with past medical history of paro xysmal atrial fibrillation, coronary artery disease with prior stenting of the RCA, LCx and LAD, hypertension, dyslipidemia, heart failure with preserved EF, carotid atherosclerosis. We have been asked to evaluate the patient for A-fib with RVR. Patient gives history that just before [facility]levism on Monday he could feel that his heart was racing and he had shortness of breath. He states he has been taking all of his medications as directed but there was a problem getting the anticoagulation and because of this he has only been on it for 2 weeks Consistently. Patient is now rate controlled in atrial fibrillation but he states that he has shortness of breath with activity just getting to the b athroom. Blood pressure 119/64, heart rate is in the 80s and 90s. Pulse ox 95% on 2 L nasal cannula. EKG: Atrial fibrillation at ventricular rate of 115 bpm Chest x-ray: No acute process Laboratory studies: CBC within normal limits. Electrolytes and renal function normal. Lactic acid initially 2.1 and repeat 1.1. Troponins negative x 3. proBNP 4720. Home cardiac medications: Amlodipine 5 mg daily, aspirin 81 mg daily, atorvastatin 40 mg at bedtime, Pradaxa 150 mg twice daily, losartan 100 mg at bedtime, Toprol XL 25 mg daily. Cardiac catheterization performed 08/05/[address] Sp Gibbons revealed patent stents within the LAD, circumflex and right coronary artery. Very distal left anterior descending coronary artery has significant stenosis but it is a very small caliber vessel and patient advised for medical therapy. Diagonal branch is a small caliber vessel shows diffuse disease. Echocardiogram performed 05/23/2024 reveals normal left ventricular size and systolic function, mild AR, mild MR, mild tricuspid regurgitation with no evidence of pulmonary hypertension. 07/30 Patient's heart rate is running between 72 and 98 and atrial fibrillation. He is on amiodarone drip which we will transition to oral. He is scheduled for SUSY and cardioversion at 1:00 today. He would like to go home following the procedure which most likely can be arranged. Blood pressure 127/90, pulse ox 93% on 2 L nasal cannula.Repeat blood work reveals hemoglobin 11.8. Creatinine 0.78. Physical examination: Gen: This is a 69-year-old male appears to be in no acute distress VS: reviewed HEENT: Head is atraumatic, normocephalic. Pupils equal, round. Sclerae is ani cteric. NECK: Supple. No JVD. LUNGS: Clear to auscultation. No wheezes or rhonchi. No intercostal retractions. HEART: Irregular rate and rhythm. Systolic murmur at the right upper sternal border. ABDOMEN: Soft No tenderness. EXTREMITIES: No pedal edema. No calf tenderness. NEUROLOGICAL: Patient is awake, alert and oriented x3. Assessment: Paroxysmal atrial fibrillation presenting with RVR, currently rate controlled but very symptomatic History of coronary artery disease with prior stenting of the RCA, LCx and LAD Hypertension Dyslipidemia Chronic heart failure with preserved EF Carotid atherosclerosis Plan: Continue patient's home cardiac medications Transition IV amiodarone to 400 mg twice daily Schedule patient for SUSY and cardioversion today with Dr. Hernandez No need to repeat echocardiogram Patient is cleared for discharge following procedure. Nurse practitioner note has been reviewed, I agree with documented findings and plan of care. Patient was seen and examined. Objective - Vital Signs Vital signs: Vital Signs Temp 98.5 F 07/30/24 08:36 Pulse 98 07/30/24 08:36 Resp 16 07/30/24 08:36 BP 127/90 07/30/24 08:36 Pulse Ox 93 L 07/30/24 08:36 FiO2 Intake & Output 07/29/24 07/30/24 07/30/24 18:59 06:59 18:59 Intake Total 236 Balance 236 Weight 102.1 kg Intake: Oral 236 Other: # Voids 1 - Labs CBC & Chem 7: 07/30/24 06:22 07/30/24 06:22 Labs: Abnormal Lab Results - Last 24 Hours (Table) 07/29/24 07/30/24 07/30/24 Range/Units 07:10 04:43 06:22 RBC 3.99 L (4.30-5.90) m/uL Hgb 11.8 L (13.0-17.5) gm/dL Hct 36.5 L (39.0-53.0) % RDW 15.7 H (11.5-15.5) % Chloride (98-107) mmol/L Glucose (74-99) mg/dL POC Glucose (mg/dL) 125 H (70-110) mg/dL HDL Cholesterol 28.70 L (40.00-60.00) mg/dL 07/30/24 Range/Units 06:22 RBC (4.30-5.90) m/uL Hgb (13.0-17.5) gm/dL Hct (39.0-53.0) % RDW (11.5-15.5) % Chloride 109 H (98-107) mmol/L Glucose 111 H (74-99) mg/dL POC Glucose (mg/dL) (70-110) mg/dL HDL Cholesterol (40.00-60.00) mg/dL
[2024-07-30] MEDS: IV FLUID CONTINUATION 1,000 ML IV ONE (12:51)
[2024-07-30] MEDS ORDERED: LIDOCAINE 1% INJ 10MG/ML (20 ML MDV) ONE (13:01)
[2024-07-30] MEDS ORDERED: PROPOFOL 10 MG/ML 20 ML VIAL IV ONE (13:01)
[2024-07-30] MEDS: BENZOCAINE SPRAY 1 CAN TOPICAL ONE (13:15)
--- NOTE | 2024-07-30 13:34 | P.PCN ---
Date of Procedure: 07/30/24 Operative Findings: TRANSESOPHAGEAL ECHOCARDIOGRAM SUPERCALENDER OPERATOR: STEVIE IBRAHIM MD, RPVI INDICATION: Rule out intracardiac thrombus before cardioversion SEDATION: Conscious sedation COMPLICATION: None LEVEL OF SEDATION The procedure was performed using propofol with EDGE CUTTING MACHINE OPERATOR in the room PROCEDURE DESCRIPTION: After obtaining an informed consent, the patient was brought to recovery room. Pulse oximetry and heart monitors were attached to the patient. The patient throat was sprayed using lidocaine. The patient was turned into left lateral position. After that a bite guard was placed. After an appropriate conscious sedation was initiated, the transesophageal echocardiogram was advanced through a bite guard into the mid esophagus. A 2-D echocardiogram images, color Doppler images, continuous wave images, pulse-wave images, of various cardiac structure were performed. After that the transesophageal echocardiogram probe was advanced into the stomach and fixed to obtain transgastric view was. The probe was brought into the mid esophagus. Inter-atrial septum was interrogated using 2D images, color Doppler images, and then contrast study. After that transesophageal echocardiogram was withdrawn out and upon withdrawing the descending thoracic aorta all the way up to the arch was evaluated. CONCLUSION: 1. Intact left atrial appendage with no thrombus. Intact interatrial septum 2. Biatrial enlargement 3. Mildly impaired LV function with EF between 45 to 50% 4. Overall normal intracardiac valves 5. No evidence of pericardial effusion
--- NOTE | 2024-07-30 13:35 | P.PCN ---
Date of Procedure: 07/30/24 Operative Findings: Cardioversion Report Performing physician Deshawn Hernandez M.D. Procedure performed Successful cardioversion of atrial fibrillation to normal sinus mechanism using 120 J at first attempt Indication Symptomatic atrial fibrillation Complication None Level of sedation The procedure was performed under deep sedation using propofol with [employer] in the room Procedure description After obtaining an informed consent the patient was brought to the recovery room. Sedation was introduced using propofol with [employer] in the room. Subsequently the patient cardioverted from atrial fibrillation to normal sinus mechanism using 200 J and first attempt Conclusion Successful cardioversion of atrial fibrillation to normal sinus mechanism using 200 J Postprocedure management Continue the current medical regimen Continue oral anticoagulation Follow-up with the patient
[2024-07-30] MEDS: AMIODARONE 200 MG TAB PO SCH (15:13)
--- NOTE | 2024-07-31 | P.PN ---
Subjective Progress Note Date: 07/29/24 Patient is a 69-year-old male with a past medical history of coronary artery disease with stent placement, atrial fibrillation, on anticoagulation with Pradaxa hypertension,, hyperlipidemia, history of CT, prostate disorder, practice sleep apnea, IBS, liver body dementia and Parkinson's tremors, bipolar disorder and depression presents to ER with complaints of shortness of breath started yesterday. Patient had much worse difficulty in breathing and worsens with walking. Patient also notices his heart rate increased to 150s. Patient went to [facility] today where he felt difficulty in breathing with walking. Patient states that he has history of CT x 4 and history of 5 stent placement Denied any fever or chills. No cough or sputum production. No complaints of chest pain. Denied any leg swelling. Denies abdominal pain. No nausea or vomiting. Patient states that he had neck surgery about 6 weeks ago and also had UTI and sepsis 4 weeks ago completed antibiotic course about 3 weeks ago. On admission chest x-ray showed no acute cardiopulmonary process. EKG showed atrial fibrillation with rapid ventricular response 115 Laboratory data showed WBC 5.5 hemoglobin 13.3 and RDW 15.3 and platelets 216 sodium 140 potassium 3.8 chloride 106 bicarbonate 25 BUN 18 and creatinine 0.81 blood sugar 135 lactic acid 2.1 on admission WBC not elevated troponin x 3 negative proBNP 4720. .07/29/2024 Patient is sitting in the chair. Awake alert and oriented x 3. No complaints chest pain. Shortness of Breath Improved. Cardizem drip has been discontinued and patient was started on amiodarone drip as per cardiology. Patient remains in atrial fibrillation. Plan for SUSY tomorrow. Patient is already on anticoagulation with Pradaxa. Laboratory data reviewed. Objective - Vital Signs Vital signs: Vital Signs Temp 98.3 F 07/29/24 09:08 Pulse 96 07/29/24 20:00 Resp 18 07/29/24 20:00 BP 116/66 07/29/24 20:00 Pulse Ox 92 L 07/29/24 20:00 FiO2 Intake & Output 07/29/24 07/29/24 07/30/24 06:59 18:59 06:59 Intake Total 236 Balance 236 Weight 100.8 kg Intake: Oral 236 - Exam PHYSICAL EXAMINATION: Patient is lying in the bed comfortably, no acute distress, awake alert and oriented.. HEENT: Normocephalic. Neck is supple. Pupils reactive. Nostrils clear. Oral cavity is moist. Neck reveals no JVD, carotid bruits, or thyromegaly. CHEST EXAMINATION: Trachea is central. Symmetrical expansion. Lung el clear to auscultation and percussion. CARDIAC: Normal S1, S2 with no gallops. No murmurs. Irregularly irregular rhythm ABDOMEN: Soft. Bowel sounds normal. No organomegaly. No abdominal bruits. Extremities: reveal no edema. No clubbing or cyanosis Neurologically awake, alert, oriented x3 with well-coordinated movements. No focal deficits noted Skin: No rash or skin lesions. Psychiatric: Coperative. Nonsuicidal Musculoskeletal: No joint swelling or deformity. Normal range of motion. - Labs CBC & Chem 7: 07/30/24 06:22 07/30/24 06:22 Labs: Abnormal Lab Results - Last 24 Hours (Table) 07/29/24 Range/Units 07:10 HDL Cholesterol 28.70 L (40.00-60.00) mg/dL Assessment and Plan Assessment: Paroxysmal atrial fibrillation rapid ventricular response Exertional dyspnea secondary to above Elevated proBNP Coronary artery history of stent placement x 5 Chronic CHF with preserved EF. Obstructive sleep apnea not on CPAP Lewy body dementia Parkinson disorder with tremors History of IBS Bipolar and depression History of bladder outflow obstruction on Flomax Recent cervical spine surgery at [facility] GERD DVT prophylaxis patient already on anticoagulation Plan: Patient will be continued on telemonitoring. Cardizem drip has been discontinued. Patient was started on amiodarone drip. Continue with metoprolol XL 25 mg p.o. daily. Continue with anticoagulation with Pradaxa. Cardiology is planning for SUSY/cardioversion tomorrow. Time with Patient: Greater than 30
--- NOTE | 2024-07-31 00:01 | P.PN ---
Subjective Progress Note Date: 07/30/24 Patient is a 69-year-old male with a past medical history of coronary artery disease with stent placement, atrial fibrillation, on anticoagulation with Pradaxa hypertension,, hyperlipidemia, history of [place], prostate disorder, practice sleep apnea, IBS, liver body dementia and Parkinson's tremors, bipolar disorder and depression presents to ER with complaints of shortness of breath started yesterday. Patient had much worse difficulty in breathing and worsens with walking. Patient also notices his heart rate increased to 150s. Patient went to [facility] today where he felt difficulty in breathing with walking. Patient states that he has history of [place] x 4 and history of 5 stent placement Denied any fever or chills. No cough or sputum production. No complaints of chest pain. Denied any leg swelling. Denies abdominal pain. No nausea or vomiting. Patient states that he had neck surgery about 6 weeks ago and also had UTI and sepsis 4 weeks ago completed antibiotic course about 3 weeks ago. On admission chest x-ray showed no acute cardiopulmonary process. EKG showed atrial fibrillation with rapid ventricular response 115 Laboratory data showed WBC 5.5 hemoglobin 13.3 and RDW 15.3 and platelets 216 sodium 140 potassium 3.8 chloride 106 bicarbonate 25 BUN 18 and creatinine 0.81 blood sugar 135 lactic acid 2.1 on admission WBC not elevated troponin x 3 negative proBNP 4720. .07/29/2024 Patient is sitting in the chair. Awake alert and oriented x 3. No complaints chest pain. Shortness of Breath Improved. Cardizem drip has been discontinued and patient was started on amiodarone drip as per cardiology. Patient remains in atrial fibrillation. Plan for SUSY tomorrow. Patient is already on anticoagulation with Pradaxa. Laboratory data reviewed. 07/30/2024 Patient is scheduled for SUSY/cardioversion today. Continued on amiodarone changed to p.o. Denied any chest pain or shortness of breath. Heart rate is controlled. Laboratory reviewed. Anticipate discharge in the next 24 hours. Current medications reviewed. Objective - Vital Signs Vital signs: Vital Signs Temp 98 F 07/30/24 14:33 Pulse 66 07/30/24 16:45 Resp 16 07/30/24 16:45 BP 130/80 07/30/24 16:45 Pulse Ox 93 L 07/30/24 16:45 FiO2 Intake & Output 07/30/24 07/30/24 07/31/24 06:59 18:59 06:59 Intake Total 1740 Output Total 300 Balance 1440 Weight 102.1 kg Intake: IV 300 Intake, IV Titration 900 Amount Sodium Chloride 0.9% 1, 900 000 ml @ 20 mls/hr IV . Q24H [facility] Rx#:[id number] Oral 540 Output: Urine 300 Other: # Voids 1 1 # Bowel Movements 0 - Exam PHYSICAL EXAMINATION: Patient is lying in the bed comfortably, no acute distress, awake alert and oriented.. HEENT: Normocephalic. Neck is supple. Pupils reactive. Nostrils clear. Oral cavity is moist. Neck reveals no JVD, carotid bruits, or thyromegaly. CHEST EXAMINATION: Trachea is central. Symmetrical expansion. Lung el clear to auscultation and percussion. CARDIAC: Normal S1, S2 with no gallops. No murmurs. Irregularly irregular rhythm ABDOMEN: Soft. Bowel sounds normal. No organomegaly. No abdominal bruits. Extremities: reveal no edema. No clubbing or cyanosis Neurologically awake, alert, oriented x3 with well-coordinated movements. No focal deficits noted Skin: No rash or skin lesions. Psychiatric: Coperative. Nonsuicidal Musculoskeletal: No joint swelling or deformity. Normal range of motion. - Labs CBC & Chem 7: 07/30/24 06:22 07/30/24 06:22 Labs: Abnormal Lab Results - Last 24 Hours (Table) 07/30/24 07/30/24 07/30/24 Range/Units 04:43 06:22 06:22 RBC 3.99 L (4.30-5.90) m/uL Hgb 11.8 L (13.0-17.5) gm/dL Hct 36.5 L (39.0-53.0) % RDW 15.7 H (11.5-15.5) % Chloride 109 H (98-107) mmol/L Glucose 111 H (74-99) mg/dL POC Glucose (mg/dL) 125 H (70-110) mg/dL Assessment and Plan Assessment: Paroxysmal atrial fibrillation rapid ventricular response Exertional dyspnea secondary to above Elevated proBNP Coronary artery history of stent placement x 5 Chronic CHF with preserved EF. Obstructive sleep apnea not on CPAP Lewy body dementia Parkinson disorder with tremors History of IBS Bipolar and depression History of bladder outflow obstruction on Flomax Recent cervical spine surgery at [facility] GERD DVT prophylaxis patient already on anticoagulation Plan: Patient will be continued on telemonitoring. Cardizem drip has been discontinued. Patient was started on amiodarone drip, changed to p.o. today. Continue with metoprolol XL 25 mg p.o. daily. Continue with anticoagulation with Pradaxa. Cardiology is planning for SUSY/cardioversion today. Time with Patient: Greater than 30
[2024-07-31 10:24] LABS: African American GFR (CKD) >90 (>60 ml/min/1.73 sqM); Anion Gap 5 mmol/L; Blood Urea Nitrogen 13 mg/dL (9-20); Calcium 8.5 mg/dL (8.4-10.2); Carbon Dioxide 28 mmol/L (22-30); Chloride 105 mmol/L (98-107); Glucose 121 mg/dL (74-99); Non-African American GFR(CKD) >90 (>60 ml/min/1.73 sqM); Sodium 138 mmol/L (137-145)
[2024-07-31 10:27] VITALS: BP 120/78; PULSE 63; RESP 16; TEMP 97.8
--- NOTE | 2024-07-31 11:33 | P.PN ---
Subjective Progress Note Date: 07/31/24 Consult reason: atrial fibrillation (With RVR) History of present illness: This is a 69-year-old male patient of Dr. Hernandez with past medical history of paro xysmal atrial fibrillation, coronary artery disease with prior stenting of the RCA, LCx and LAD, hypertension, dyslipidemia, heart failure with preserved EF, carotid atherosclerosis. We have been asked to evaluate the patient for A-fib with RVR. Patient gives history that just before yarsanism on Monday he could feel that his heart was racing and he had shortness of breath. He states he has been taking all of his medications as directed but there was a problem getting the anticoagulation and because of this he has only been on it for 2 weeks Consistently. Patient is now rate controlled in atrial fibrillation but he states that he has shortness of breath with activity just getting to the b athroom. Blood pressure 119/64, heart rate is in the 80s and 90s. Pulse ox 95% on 2 L nasal cannula. EKG: Atrial fibrillation at ventricular rate of 115 bpm Chest x-ray: No acute process Laboratory studies: CBC within normal limits. Electrolytes and renal function normal. Lactic acid initially 2.1 and repeat 1.1. Troponins negative x 3. proBNP 4720. Home cardiac medications: Amlodipine 5 mg daily, aspirin 81 mg daily, atorvastatin 40 mg at bedtime, Pradaxa 150 mg twice daily, losartan 100 mg at bedtime, Toprol XL 25 mg daily. Cardiac catheterization performed 08/05/[address] Sp Gibbons revealed patent stents within the LAD, circumflex and right coronary artery. Very distal left anterior descending coronary artery has significant stenosis but it is a very small caliber vessel and patient advised for medical therapy. Diagonal branch is a small caliber vessel shows diffuse disease. Echocardiogram performed 05/23/2024 reveals normal left ventricular size and systolic function, mild AR, mild MR, mild tricuspid regurgitation with no evidence of pulmonary hypertension. 07/30 Patient's heart rate is running between 72 and 98 and atrial fibrillation. He is on amiodarone drip which we will transition to oral. He is scheduled for SUSY and cardioversion at 1:00 today. He would like to go home following the procedure which most likely can be arranged. Blood pressure 127/90, pulse ox 93% on 2 L nasal cannula.Repeat blood work reveals hemoglobin 11.8. Creatinine 0.78. 07/31 Yesterday, patient underwent a SUSY and cardioversion yesterday. He remains in a sinus rhythm. No chest pain no palpitations, no lightheadedness or dizziness. Patient is having difficulty pain for anticoagulation. He has been prescribed Pradaxa and also has tried Eliquis and Xarelto in the past and all been extremely expensive and his insurance does not cover. He has agreed that he will continue on Pradaxa for the next 3 months and then consider changing to Coumadin to be more cost conscious. talent acquisition project manager will provide him with any possible options. Physical examination: Gen: This is a 69-year-old male appears to be in no acute distress VS: reviewed HEENT: Head is atraumatic, normocephalic. Pupils equal, round. Sclerae is anicteric. NECK: Supple. No JVD. LUNGS: Clear to auscultation. No wheezes or rhonchi. No intercostal retractions. HEART: Irregular rate and rhythm. Systolic murmur at the right upper sternal border. ABDOMEN: Soft No tenderness. EXTREMITIES: No pedal edema. No calf tenderness. NEUROLOGICAL: Patient is awake, alert and oriented x3. Assessment: Paroxysmal atrial fibrillation presenting with RVR, status post SUSY and cardioversion now in sinus rhythm History of coronary artery disease with prior stenting of the RCA, LCx and LAD Hypertension Dyslipidemia Chronic heart failure with preserved EF Carotid atherosclerosis Plan: Continue patient's home cardiac medications Patient is cleared for discharge from cardiology and may follow-up with Dr. Hernandez in 1 to 2 weeks. Nurse practitioner note has been reviewed, I agree with documented findings and plan of care. Patient was seen and examined. Objective - Vital Signs Vital signs: Vital Signs Temp 97.8 F 07/31/24 09:10 Pulse 63 07/31/24 09:10 Resp 16 07/31/24 09:10 BP 120/78 07/31/24 09:10 Pulse Ox 92 L 07/31/24 09:10 FiO2 Intake & Output 07/30/24 07/31/24 07/31/24 18:59 06:59 18:59 Intake Total 1740 240 Output Total 300 Balance 1440 240 Weight 102.4 kg Intake: IV 300 Intake, IV Titration 900 Amount Sodium Chloride 0.9% 1, 900 000 ml @ 20 mls/hr IV . Q24H [facility] Rx#:[id number] Oral 540 240 Output: Urine 300 Other: # Voids 1 3 # Bowel Movements 0 - Labs CBC & Chem 7: 07/30/24 06:22 07/31/24 09:24 Labs: Abnormal Lab Results - Last 24 Hours (Table) 07/31/24 Range/Units 09:24 Glucose 121 H (74-99) mg/dL
--- NOTE | 2024-07-31 21:48 | P.DS ---
Providers Date of admission: 07/28/24 13:21 Expected date of discharge: 07/31/24 Attending physician: Pierce Chakraborty Consults: 07/28/24 13:21 Consult Physician Urgent Consulting Provider: [facility] Consult Reason/Comments: A-fib with rapid ventricular response Do you want consulting provider notified?: Yes Primary care physician: [facility] Course: Patient is a 69-year-old male with a past medical history of coronary artery disease with stent placement, atrial fibrillation, on anticoagulation with Pradaxa hypertension,, hyperlipidemia, history of [place], prostate disorder, practice sleep apnea, IBS, liver body dementia and Parkinson's tremors, bipolar disorder and depression presents to ER with complaints of shortness of breath started yesterday. Patient had much worse difficulty in breathing and worsens with walking. Patient also notices his heart rate increased to 150s. Patient went to [facility] today where he felt difficulty in breathing with walking. Patient states that he has history of [place] x 4 and history of 5 stent placement Denied any fever or chills. No cough or sputum production. No complaints of chest pain. Denied any leg swelling. Denies abdominal pain. No nausea or vomiting. Patient states that he had neck surgery about 6 weeks ago and also had UTI and sepsis 4 weeks ago completed antibiotic course about 3 weeks ago. On admission chest x-ray showed no acute cardiopulmonary process. EKG showed atrial fibrillation with rapid ventricular response 115 Laboratory data showed WBC 5.5 hemoglobin 13.3 and RDW 15.3 and platelets 216 sodium 140 potassium 3.8 chloride 106 bicarbonate 25 BUN 18 and creatinine 0.81 blood sugar 135 lactic acid 2.1 on admission WBC not elevated troponin x 3 negative proBNP 4720. .07/29/2024 Patient is sitting in the chair. Awake alert and oriented x 3. No complaints chest pain. Shortness of Breath Improved. Cardizem drip has been discontinued and patient was started on amiodarone drip as per cardiology. Patient remains in atrial fibrillation. Plan for SUSY tomorrow. Patient is already on anticoagulation with Pradaxa. Laboratory data reviewed. 07/30/2024 Patient is scheduled for SUSY/cardioversion today. Continued on amiodarone changed to p.o. Denied any chest pain or shortness of breath. Heart rate is controlled. Laboratory reviewed. Anticipate discharge in the next 24 hours. July 31: Patient doing well. Remains in sinus rhythm. Chronic mild baseline shortness of breath. He discussed with cardiology Dr. Hernandez. At this point we will continue using Pradaxa. As it this is costing him $160 a month. Patient be discharged on amiodarone. Past medical history to include: Coronary artery disease with stent, cognitive impairment, GERD, hyperlipidemia, hypertension, Parkinson disease, BPH, obstructive sleep apnea does not use CPAP, hiatal hernia Elizabeth fundoplication depression Social history: lives with no smoking. Stopped drinking alcohol in 2004. Prior to that used to drink every day On examination: VITAL SIGNS: 97.8, 63, 16, 120 x 78, 92% 2 L GENERAL APPEARANCE: Comfortable HEENT: Normal external appearance of nose and ear. Oral cavity normal EYES: Pupils equal. Conjunctiva normal. NECK: JVD not raised. Mass not palpable. RESPIRATORY: Respiratory effort normal. Lungs decreased breath sounds, CARDIOVASCULAR: First and second sounds normal. No edema. ABDOMEN: Soft. Liver and spleen not palpable. No tenderness. No mass palpable. Pulido catheter PSYCHIATRY: Alert and oriented x3. Mood and affect normal INVESTIGATIONS, reviewed in the clinical context: White count 5.6 hemoglobin 11.8 platelets 176 potassium 4 BUN 13 creatinine 0.78 LDL 64 Assessment plan: -Paroxysmal atrial fibrillation rapid ventricular response Successful cardioversion. Follow Dr. Hernandez in the office. Pradaxa to continue -Coronary artery history of stent placement x 5 -Chronic CHF with preserved EF. -Obstructive sleep apnea not on CPAP -Lewy body dementia -Early Parkinson disorder with tremors -IBS -Bipolar and depression -BPH bladder outflow obstruction on Flomax - Full code GERD Disposition: Home Plan - Discharge Summary New Discharge Prescriptions: New Amiodarone [Cordarone] 100 mg PO DAILY #88 tablet Continue Primidone [Mysoline] 100 mg PO DAILY Memantine [Namenda] 10 mg PO BID Pramipexole Di-HCl [Mirapex] 1.5 mg PO HS Pregabalin [Lyrica] 100 mg PO BID Sertraline [Zoloft] 200 mg PO DAILY Primidone [Mysoline] 150 mg PO HS Tamsulosin [Flomax] 0.8 mg PO DAILY Atorvastatin [Lipitor] 40 mg PO HS #30 tab tiZANidine [Zanaflex] 2 mg PO TID PRN #60 tab PRN Reason: Muscle Spasm Aspirin 81 mg PO DAILY tab HYDROcodone/APAP 5-325MG [[place] 5-325] 1 tab PO Q6H PRN PRN Reason: Pain Metoprolol Succinate (ER) [Toprol XL] 25 mg PO DAILY Losartan Potassium [Cozaar] 100 mg PO HS #30 tab amLODIPine [Norvasc] 5 mg PO DAILY #30 tab Dabigatran [Pradaxa] 150 mg PO BID #180 capsule Discharge Medication List Primidone [Mysoline] 100 mg PO DAILY 12/20/17 [History] Memantine [Namenda] 10 mg PO BID 02/17/20 [History] Pramipexole Di-HCl [Mirapex] 1.5 mg PO HS 02/17/20 [History] Pregabalin [Lyrica] 100 mg PO BID 03/10/21 [History] Sertraline [Zoloft] 200 mg PO DAILY 08/18/21 [History] Aspirin 81 mg PO DAILY tab 11/25/22 [Rx] HYDROcodone/APAP 5-325MG [[place] 5-325] 1 tab PO Q6H PRN 02/27/23 [History] Metoprolol Succinate (ER) [Toprol XL] 25 mg PO DAILY 02/17/24 [History] Primidone [Mysoline] 150 mg PO HS 02/17/24 [History] Tamsulosin [Flomax] 0.8 mg PO DAILY 05/19/24 [History] Atorvastatin [Lipitor] 40 mg PO HS #30 tab 05/24/24 [Rx] Losartan Potassium [Cozaar] 100 mg PO HS #30 tab 05/24/24 [Rx] amLODIPine [Norvasc] 5 mg PO DAILY #30 tab 05/24/24 [Rx] tiZANidine [Zanaflex] 2 mg PO TID PRN #60 tab 05/24/24 [Rx] Amiodarone [Cordarone] 100 mg PO DAILY #88 tablet 07/30/24 [Rx] Dabigatran [Pradaxa] 150 mg PO BID #180 capsule 07/31/24 [Rx] Follow up Appointment(s)/Referral(s): Román Gutierrez DO [Primary Care Provider] - 1-2 days (Spoke to executive receptionist. They will call you with an appointment time.) Deshawn Hernandez MD [STAFF PHYSICIAN] - 2 Weeks (Spoke to executive receptionistEbony. She will call you with an appointment time.) Patient Instructions/Handouts: Cardioversion (DC) Discharge Disposition: HOME SELF-CARE
== END 2024-07-31 11:59 | disposition home or self-care (01) | DRG 309 ==
LOC: EC 10:46 → 3SCARD 13:21
PROVIDERS: ADMIT Hospitalist; ATTEND Hospitalist
PROC: 5A2204Z Restoration of Cardiac Rhythm, Single (ICD-10-PCS; 2024-07-30)
PROC: B24BZZ4 Ultrasonography of Heart with Aorta, Transesophageal (ICD-10-PCS; principal; 2024-07-30 07:30)
DX: I48.0 Paroxysmal atrial fibrillation (principal); I50.32 Chronic diastolic (congestive) heart failure; I11.0 Hypertensive heart disease with heart failure; G31.83 Neurocognitive disorder with Lewy bodies; F02.80 Dementia in other diseases classified elsewhere, unspecified severity, without behavioral disturbance, psychotic disturbance, mood disturbance, and anxiety; G20.A1 Parkinson's disease without dyskinesia, without mention of fluctuations; I65.29 Occlusion and stenosis of unspecified carotid artery; E78.5 Hyperlipidemia, unspecified; N40.0 Benign prostatic hyperplasia without lower urinary tract symptoms; N32.0 Bladder-neck obstruction; I08.3 Combined rheumatic disorders of mitral, aortic and tricuspid valves; G47.33 Obstructive sleep apnea (adult) (pediatric); I25.10 Atherosclerotic heart disease of native coronary artery without angina pectoris; I25.2 Old myocardial infarction; Z79.01 Long term (current) use of anticoagulants; Z79.82 Long term (current) use of aspirin; Z95.5 Presence of coronary angioplasty implant and graft; Z79.899 Other long term (current) drug therapy; Z79.02 Long term (current) use of antithrombotics/antiplatelets
CPT/HCPCS: 36415; 71046; 80048; 80053; 80061; 83605; 83735; 83880; 84484; 85025; 85610; 85730; 92960; 93005; 93312; 93320; 93325; 94760; 96365; 96368; 99291

== ENCOUNTER 2024-08-01 10:42 | Observation (INO) | payer MEDICARE ==
--- NOTE | 2024-08-01 11:07 | ED ---
General Adult HPI - General Chief complaint: Shortness of Breath Stated complaint: Dyspnea Time Seen by Provider: 08/01/24 11:01 Source: patient, RN notes reviewed Mode of arrival: ambulatory Limitations: no limitations - History of Present Illness Initial comments: Patient is a 69-year-old male presents emergency department with shortness of breath. Patient states symptoms are getting worse last night. Patient does have cough. Patient also has some chest pressure. Patient was recently discharged from the hospital. Patient denies any history of COPD. Patient states he does have history of congestive heart failure with somewhat similar symptoms. No calf pain or leg edema. No fever. - Related Data Home Medications Medication Instructions Recorded Confirmed Primidone [Mysoline] 100 mg PO DAILY 12/20/17 08/01/24 Memantine [Namenda] 10 mg PO BID 02/17/20 08/01/24 Pramipexole Di-HCl [Mirapex] 1.5 mg PO HS 02/17/20 08/01/24 Pregabalin [Lyrica] 100 mg PO BID 03/10/21 08/01/24 Sertraline [Zoloft] 200 mg PO DAILY 08/18/21 08/01/24 HYDROcodone/APAP 5-325MG [[place] 1 tab PO Q6H PRN 02/27/23 08/01/24 5-325] Metoprolol Succinate (ER) [Toprol 25 mg PO DAILY 02/17/24 08/01/24 XL] Primidone [Mysoline] 150 mg PO HS 02/17/24 08/01/24 Tamsulosin [Flomax] 0.8 mg PO DAILY 05/19/24 08/01/24 Amiodarone [Cordarone] See Taper PO DAILY 08/01/24 08/01/24 Previous Rx's Medication Instructions Recorded Aspirin 81 mg PO DAILY tab 11/25/22 Atorvastatin [Lipitor] 40 mg PO HS #30 tab 05/24/24 Losartan Potassium [Cozaar] 100 mg PO HS #30 tab 05/24/24 amLODIPine [Norvasc] 5 mg PO DAILY #30 tab 05/24/24 tiZANidine [Zanaflex] 2 mg PO TID PRN #60 tab 05/24/24 Dabigatran [Pradaxa] 150 mg PO BID #180 capsule 07/31/24 Allergies Allergy/AdvReac Type Severity Reaction Status Date / Time No Known Allergies Allergy Verified 08/01/24 13:12 Review of Systems ROS Statement: Those systems with pertinent positive or pertinent negative responses have been documented in the HPI. ROS Other: All systems not noted in ROS Statement are negative. Constitutional: Denies: fever Eyes: Denies: eye pain ENT: Denies: ear pain Respiratory: Reports: as per HPI, cough, dyspnea Cardiovascular: Reports: as per HPI, chest pain Endocrine: Denies: fatigue Gastrointestinal: Denies: abdominal pain Musculoskeletal: Denies: back pain Past Medical History Past Medical History: Coronary Artery Disease (CAD), Chest Pain / Angina, Heart Failure, Dementia, GERD/Reflux, Hyperlipidemia, Hypertension, Myocardial Infarction ([place]), Neurologic Disorder, Pneumonia, Prostate Disorder, Renal Disease, Skin Disorder, Sleep Apnea/CPAP/BIPAP Additional Past Medical History / Comment(s): early parkinson's with essential tremors, "lewy body dementia" R nephrolithiasis with surgery, EDITH with no CPAP, Irritable Bowel Syndrome diarrhea off and on, pneumonia/bronchitis, BPH, blood in stool-EGD/colonoscopy were normal, past hiatal hernia(sx), past falls., kidney failure, Last Myocardial Infarction Date:: 06/09/13 History of Any Multi-Drug Resistant Organisms: None Reported Past Surgical History: Back Surgery, Heart Catheterization, Heart Catheterization With Stent, Hernia Repair Additional Past Surgical History / Comment(s): 05/2013 stent to LAD and then a cardiac cath which showed stent patent, Recent R kidney stone removal, 03/19/15 Laparoscopic Elizabeth fundlaplication. SKIN GRAFTS CHEST & BACK FROM BASSETT AT 13 YRS OLD., COLONOSCOPY. EGD, L abdiely eye surgery as toddler. c3 c4 fusion, c4 c5 fusion. Past Anesthesia/Blood Transfusion Reactions: No Reported Reaction Additional Past Anesthesia/Blood Transfusion Reaction / Comment(s): Pt received blood in 1967 without reaction. Date of Last Stent Placement:: 12/2017 Past Psychological History: Bipolar, Depression Smoking Status: Never smoker Past Alcohol Use History: None Reported Past Drug Use History: None Reported - Past Family History Mother Family Medical History: Liver Disease Additional Family Medical History / Comment(s): Mother was an alcoholic. She of cirrhosis of the liver at age 60yrs. Father Family Medical History: Cancer, Coronary Artery Disease (CAD), Myocardial Infarction ([place]) Additional Family Medical History / Comment(s): SKIN CA. Father of a [place] at age 65 yrs. Brother(s) Family Medical History: Cancer Additional Family Medical History / Comment(s): LEUKEMIA, LYMPH NODE CA AND MULTIPLE MYELOMA. General Exam Limitations: no limitations General appearance: alert, in no apparent distress Head exam: Present: normocephalic Eye exam: Present: normal appearance Neck exam: Present: normal inspection Respiratory exam: Present: wheezes Cardiovascular Exam: Present: regular rate, normal rhythm GI/Abdominal exam: Present: soft. Absent: tenderness Extremities exam: Present: normal inspection. Absent: pedal edema, calf tenderness Neurological exam: Present: alert Psychiatric exam: Present: normal affect, normal mood Skin exam: Present: normal color Course Vital Signs 08/01/24 08/01/24 08/01/24 10:56 11:22 11:24 Temperature 97.5 F L Pulse Rate 71 65 61 Respiratory 16 22 Rate Blood Pressure 90/55 104/69 O2 Sat by Pulse 90 L 98 Oximetry 08/01/24 08/01/24 08/01/24 11:31 12:24 13:25 Temperature Pulse Rate 77 67 64 Respiratory 26 H 22 Rate Blood Pressure 102/71 119/80 O2 Sat by Pulse 95 95 Oximetry EKG Findings - EKG Results: EKG: interpreted by ERMD, sinus rhythm, normal axis, normal QRS, normal ST/T Medical Decision Making - Medical Decision Making Was pt. sent in by a medical professional or institution (, [facility], [facility], urgent care, hospital, or shelter...) When possible be specific @ -No Did you speak to anyone other than the patient for history (EMS, parent, family, police, friend...)? What history was obtained from this source @ -No Did you review nursing and triage notes (agree or disagree)? Why? @ -I reviewed and agree with nursing and triage notes Were old charts reviewed (outside hosp., previous admission, EMS record, old EKG, old radiological studies, urgent care reports/EKG's, shelter records)? Report findings @ -Previous admission reviewed Differential Diagnosis (chest pain, altered mental status, abdominal pain women, abdominal pain men, vaginal bleeding, weakness, fever, dyspnea, syncope, headache, dizziness, GI bleed, back pain, seizure, CVA, palpatations, mental health, musculoskeletal)? @ -Differential Dyspnea: Coronary syndrome, arrhythmia, tamponade, asthma, COPD, pulmonary embolism, pneumonia, pneumothorax, pulmonary effusion, anaphylaxis, diabetic ketoacidosis, flailed chest, pulmonary contusion, diaphragmatic rupture, anemia, neuromuscular, this is not meant to be an all-inclusive list. EKG interpreted by me (3pts min.). @ -As above X-rays interpreted by me (1pt min.). @ -X-ray shows no acute process CT interpreted by me (1pt min.). @ -None done U/S interpreted by me (1pt. min.). @ -None done What testing was considered but not performed or refused? (CT, X-rays, U/S, labs)? Why? @ -None What meds were considered but not given or refused? Why? @ -None Did you discuss the management of the patient with other professionals (p nnamdi i.e. , PA, [facility], lab, RT, psych nurse, social media marketing specialist, program lead, teacher, light armored reconnaissance officer, disease case manager)? Give summary @ -Case discussed with Dr. Chakraborty who did evaluate patient in the emergency department and will admit covering DrLilibeth Service Was smoking cessation discussed for >3mins.? @ -No Was critical care preformed (if so, how long)? @ -No Were there social determinants of health that impacted care today? How? (Homelessness, low income, unemployed, alcoholism, drug addiction, t ransportation, low edu. Level, literacy, decrease access to med. care, halfway, rehab)? @ -No Was there de-escalation of care discussed even if they declined (Discuss DNR or withdrawal of care, Hospice)? DNR status @ -No What co-morbidities impacted this encounter? (DM, HTN, Smoking, COPD, CAD, Cance r, CVA, ARF, Chemo, Hep., AIDS, mental health diagnosis, sleep apnea, morbid obesity)? @ -CHF Was patient admitted / discharged? Hospital course, mention meds given and route, prescriptions, significant lab abnormalities, going to OR and other pertinent info. @ -Patient presents with dyspnea increasing over the past couple of days. Wheezing on exam. Chest x-ray clear. Patient will be admitted with pulmonary consult. Admission orders written. Undiagnosed new problem with uncertain prognosis? @ -No Drug Therapy requiring intensive monitoring for toxicity (Heparin, Nitro, Insulin, Cardizem)? @ -No Were any procedures done? @ -No Diagnosis/symptom? @ -Bronchospasm Acute, or Chronic, or Acute on Chronic? @ -Acute Uncomplicated (without systemic symptoms) or Complicated (systemic symptoms)? @ -Default Side effects of treatment? @ -No Exacerbation, Progression, or Severe Exacerbation? @ -No Poses a threat to life or bodily function? How? (Chest pain, [place], [place], pneumonia, PE, COPD, DKA, ARF, appy, cholecystitis, CVA, Diverticulitis, Homicidal, Suicidal, threat to staff... and all critical care pts) @ -No - Lab Data Result diagrams: 08/01/24 11:22 08/01/24 11:22 Lab Results 08/01/24 08/01/24 08/01/24 Range/Units 11:22 11:22 11:22 WBC 6.0 (3.8-10.6) k/uL RBC 4.10 L (4.30-5.90) m/uL Hgb 12.1 L (13.0-17.5) gm/dL Hct 37.6 L (39.0-53.0) % MCV 91.7 (80.0-100.0) fL MCH 29.6 (25.0-35.0) pg MCHC 32.3 (31.0-37.0) g/dL RDW 15.2 (11.5-15.5) % Plt Count 195 (150-450) k/uL MPV 7.3 Neutrophils % 76 % Lymphocytes % 13 % Monocytes % 6 % Eosinophils % 3 % Basophils % 0 % Neutrophils # 4.6 (1.3-7.7) k/uL Lymphocytes # 0.8 L (1.0-4.8) k/uL Monocytes # 0.4 (0-1.0) k/uL Eosinophils # 0.2 (0-0.7) k/uL Basophils # 0.0 (0-0.2) k/uL Hypochromasia Slight PT 12.2 (10.0-12.5) sec INR 1.1 (<1.2) APTT 35.3 H (22.0-30.0) sec D-Dimer (<0.60) mg/L FEU Sodium 138 (137-145) mmol/L Potassium 3.8 (3.5-5.1) mmol/L Chloride 104 (98-107) mmol/L Carbon Dioxide 27 (22-30) mmol/L Anion Gap 7 mmol/L BUN 11 (9-20) mg/dL Creatinine 0.75 (0.66-1.25) mg/dL Est GFR (CKD-EPI)AfAm >90 (>60 ml/min/1.73 sqM) Est GFR (CKD-EPI)NonAf >90 (>60 ml/min/1.73 sqM) Glucose 158 H (74-99) mg/dL Plasma Lactic Acid Sudheer (0.7-2.0) mmol/L Calcium 8.4 (8.4-10.2) mg/dL Magnesium 1.9 (1.6-2.3) mg/dL Total Bilirubin 0.8 (0.2-1.3) mg/dL AST 23 (17-59) U/L ALT 20 (4-49) U/L Alkaline Phosphatase 64 (38-126) U/L Troponin I (0.000-0.034) ng/mL NT-Pro-B Natriuret Pep 1340 pg/mL Total Protein 6.0 L (6.3-8.2) g/dL Albumin 3.4 L (3.5-5.0) g/dL Influenza Type A (PCR) (Not Detectd) Influenza Type B (PCR) (Not Detectd) RSV (PCR) (Not Detectd) SARS-CoV-2 (PCR) (Not Detectd) 08/01/24 08/01/24 08/01/24 Range/Units 11:22 11:22 11:22 WBC (3.8-10.6) k/uL RBC (4.30-5.90) m/uL Hgb (13.0-17.5) gm/dL Hct (39.0-53.0) % MCV (80.0-100.0) fL MCH (25.0-35.0) pg MCHC (31.0-37.0) g/dL RDW (11.5-15.5) % Plt Count (150-450) k/uL MPV Neutrophils % % Lymphocytes % % Monocytes % % Eosinophils % % Basophils % % Neutrophils # (1.3-7.7) k/uL Lymphocytes # (1.0-4.8) k/uL Monocytes # (0-1.0) k/uL Eosinophils # (0-0.7) k/uL Basophils # (0-0.2) k/uL Hypochromasia PT (10.0-12.5) sec INR (<1.2) APTT (22.0-30.0) sec D-Dimer <0.17 (<0.60) mg/L FEU Sodium (137-145) mmol/L Potassium (3.5-5.1) mmol/L Chloride (98-107) mmol/L Carbon Dioxide (22-30) mmol/L Anion Gap mmol/L BUN (9-20) mg/dL Creatinine (0.66-1.25) mg/dL Est GFR (CKD-EPI)AfAm (>60 ml/min/1.73 sqM) Est GFR (CKD-EPI)NonAf (>60 ml/min/1.73 sqM) Glucose (74-99) mg/dL Plasma Lactic Acid Sudheer 1.6 (0.7-2.0) mmol/L Calcium (8.4-10.2) mg/dL Magnesium (1.6-2.3) mg/dL Total Bilirubin (0.2-1.3) mg/dL AST (17-59) U/L ALT (4-49) U/L Alkaline Phosphatase (38-126) U/L Troponin I <0.012 (0.000-0.034) ng/mL NT-Pro-B Natriuret Pep pg/mL Total Protein (6.3-8.2) g/dL Albumin (3.5-5.0) g/dL Influenza Type A (PCR) (Not Detectd) Influenza Type B (PCR) (Not Detectd) RSV (PCR) (Not Detectd) SARS-CoV-2 (PCR) (Not Detectd) 08/01/24 Range/Units 12:26 WBC (3.8-10.6) k/uL RBC (4.30-5.90) m/uL Hgb (13.0-17.5) gm/dL Hct (39.0-53.0) % MCV (80.0-100.0) fL MCH (25.0-35.0) pg MCHC (31.0-37.0) g/dL RDW (11.5-15.5) % Plt Count (150-450) k/uL MPV Neutrophils % % Lymphocytes % % Monocytes % % Eosinophils % % Basophils % % Neutrophils # (1.3-7.7) k/uL Lymphocytes # (1.0-4.8) k/uL Monocytes # (0-1.0) k/uL Eosinophils # (0-0.7) k/uL Basophils # (0-0.2) k/uL Hypochromasia PT (10.0-12.5) sec INR (<1.2) APTT (22.0-30.0) sec D-Dimer (<0.60) mg/L FEU Sodium (137-145) mmol/L Potassium (3.5-5.1) mmol/L Chloride (98-107) mmol/L Carbon Dioxide (22-30) mmol/L Anion Gap mmol/L BUN (9-20) mg/dL Creatinine (0.66-1.25) mg/dL Est GFR (CKD-EPI)AfAm (>60 ml/min/1.73 sqM) Est GFR (CKD-EPI)NonAf (>60 ml/min/1.73 sqM) Glucose (74-99) mg/dL Plasma Lactic Acid Sudheer (0.7-2.0) mmol/L Calcium (8.4-10.2) mg/dL Magnesium (1.6-2.3) mg/dL Total Bilirubin (0.2-1.3) mg/dL AST (17-59) U/L ALT (4-49) U/L Alkaline Phosphatase (38-126) U/L Troponin I (0.000-0.034) ng/mL NT-Pro-B Natriuret Pep pg/mL Total Protein (6.3-8.2) g/dL Albumin (3.5-5.0) g/dL Influenza Type A (PCR) Not Detected (Not Detectd) Influenza Type B (PCR) Not Detected (Not Detectd) RSV (PCR) Not Detected (Not Detectd) SARS-CoV-2 (PCR) Not Detected (Not Detectd) Disposition Clinical Impression: Bronchospasm Disposition: ADMITTED IP TO THIS HOSP Is patient prescribed a controlled substance at d/c from ED?: No Referrals: Román Gutierrez DO [Primary Care Provider] - 1-2 days Time of Disposition: 13:38
[2024-08-01] MEDS: IPRATROPIUM-ALBUTEROL 3 ML NEB INHALATION STA (11:19)
--- NOTE | 2024-08-01 11:52 | XR ---
EXAMINATION TYPE: XR chest 2V DATE OF EXAM: 08/01/2024 COMPARISON: 07/28/2024 HISTORY: Shortness of breath TECHNIQUE: Frontal and lateral views of the chest are obtained. FINDINGS: Scattered senescent parenchymal changes noted. Hyperinflation compatible with COPD. No evidence for infiltrate. No evidence for atelectasis. Heart size is stable. Mediastinal structures are stable and grossly unremarkable. No evidence for hilar prominence. Degenerative changes dorsal spine. IMPRESSION: 1. No evidence for acute pulmonary disease.
[2024-08-01 11:54] LABS: Basophils % (A) 0 %; Eosinophils # (A) 0.2 k/uL (0-0.7); Eosinophils % (A) 3 %; HCT 37.6 % (39.0-53.0); HGB 12.1 gm/dL (13.0-17.5); Hypochromasia Slight; Lymphocytes # (A) 0.8 k/uL (1.0-4.8); Lymphocytes % (A) 13 %; MCH 29.6 pg (25.0-35.0); MCHC 32.3 g/dL (31.0-37.0); MCV 91.7 fL (80.0-100.0); Mean Platelet Volume 7.3; Monocytes # (A) 0.4 k/uL (0-1.0); Monocytes % (A) 6 %; Neutrophils # (A) 4.6 k/uL (1.3-7.7); Neutrophils % (A) 76 %; Platelet Count 195 k/uL (150-450); RDW 15.2 % (11.5-15.5)
[2024-08-01 12:14] LABS: INR 1.1 (<1.2); Partial Thromboplastin Time 35.3 sec (22.0-30.0); Prothrombin Time 12.2 sec (10.0-12.5)
[2024-08-01 12:16] LABS: ALT 20 U/L (4-49); AST 23 U/L (17-59); African American GFR (CKD) >90 (>60 ml/min/1.73 sqM); Albumin 3.4 g/dL (3.5-5.0); Alkaline Phosphatase 64 U/L (38-126); Anion Gap 7 mmol/L; Blood Urea Nitrogen 11 mg/dL (9-20); Calcium 8.4 mg/dL (8.4-10.2); Carbon Dioxide 27 mmol/L (22-30); Chloride 104 mmol/L (98-107); Glucose 158 mg/dL (74-99); Magnesium 1.9 mg/dL (1.6-2.3); Non-African American GFR(CKD) >90 (>60 ml/min/1.73 sqM); Potassium 3.8 mmol/L (3.5-5.1); Sodium 138 mmol/L (137-145); Total Bilirubin 0.8 mg/dL (0.2-1.3)
[2024-08-01 12:25] LABS: NT-Pro-B-Type Natriuretic Pept 1340 pg/mL
[2024-08-01] MEDS ORDERED: IPRATROPIUM-ALBUTEROL 3 ML NEB INHALATION PRN (13:38)
[2024-08-01] MEDS ORDERED: NALOXONE 0.4 MG/ML 1 ML VIAL IVP PRN (13:38)
[2024-08-01] MEDS ORDERED: ACETAMINOPHEN TAB 325 MG TAB PO PRN (13:38)
[2024-08-01] MEDS: methylPREDNISolone SOD SUCCI 125 MG/2 ML VIAL IV STA (14:22)
[2024-08-01] MEDS ORDERED: ONDANSETRON 4 MG/2 ML VIAL IVP PRN (14:55)
[2024-08-01] MEDS ORDERED: CALCIUM CARBONATE 500 MG CHEWABLE PO PRN (14:55)
[2024-08-01] MEDS ORDERED: LACTULOSE 20 GM/30 ML CUP PO PRN (14:55)
--- NOTE | 2024-08-01 15:08 | P.HPIM ---
History of Present Illness H&P Date: 08/01/24 Chief Complaint: Short of breath cough 69-year-old patient of Dr. Gutierrez. Chronic stable medical conditions include some cognitive impairment, GERD, hyperlipidemia, hypertension, early Parkinson's versus essential tremor, , obstructive sleep apnea does not use CPAP, irritable bowel syndrome, BPH hiatal hernia. coronary artery disease with stent. Paroxysmal atrial fibrillation. Patient was just in the hospital from July 28 through July 31. Had presented with atrial fibrillation uncontrolled. Underwent SUSY followed by cardioversion. Did well. Was discharged by cardiology. Patient is to continue on Pradaxa. Patient presented with worsening short of breath. Congestive cough. Little sputum. Having chills. Short of breath wheezing. Presented to the ER. Review of systems: GEN.: Chills, tired EYES: None HEENT: None NECK: None RESPIRATORY: As above CARDIOVASCULAR: None GASTROINTESTINAL: None GENITOURINARY: None MUSCULOSKELETAL: Joint pains LYMPHATICS: None HEMATOLOGICAL: None PSYCHIATRY: None NEUROLOGICAL: None Social history: lives with no smoking. Stopped drinking alcohol in 2004. Prior to that used to drink every day On examination: VITAL SIGNS: 97.5, 67, 26, 112 x 71, 95% on 2 L GENERAL APPEARANCE: BMI 28.2, reclining in bed, congested cough short of breath HEENT: Normal external appearance of nose and ear. Oral cavity normal EYES: Pupils equal. Conjunctiva normal. NECK: JVD not raised. Mass not palpable. RESPIRATORY: Respiratory effort increased, diminished breath sounds, prolonged expiration expiratory wheezing. Expiratory crackles.. Lungs decreased breath sounds, CARDIOVASCULAR: First and second sounds normal. No edema. ABDOMEN: Soft. Liver and spleen not palpable. No tenderness. No mass palpable. PSYCHIATRY: Alert and oriented x3. Mood and affect a bit anxious NEUROLOGICAL: Cranial nerves grossly intact per sensation grossly intact LYMPHATICS: No lymph nodes were palpable neck and axilla INVESTIGATIONS, reviewed in the clinical context: August 01, 2024: White count 6 hemoglobin 12.1 platelets 195 sodium 138 potassium 3.8 creatinine 0.75 Troponin I less than 0.012 proBNP 1340 Influenza type A, type B, RSV, COVID-19: Not detected EKG tracing personally reviewed by me-normal sinus rhythm. Chest x-ray film personally reviewed by me-some cardiomegaly. Assessment and plan: -Acute severe obstructive asthma exacerbation, in a non-smoker, precipitated by tracheobronchitis DuoNeb every 4. IV Solu-Medrol. Nebulized Pulmicort. Doxycycline 100 mg twice daily. Mucinex -Paroxysmal atrial fibrillation: Sinus rhythm Toprol-XL. Pradaxa. Amiodarone July 30 patient underwent SUSY followed by DC cardioversion. -Coronary artery disease with prior history of stent Aspirin, Toprol-XL -GERD Tums when necessary -Hyperlipidemia Lipitor -Essential hypertension Amlodipine. Cozaar. -BPH -Obstructive sleep apnea does not use CPAP -Early Parkinson disorder with tremors Mirapex, primidone -Irritable bowel syndrome -Bipolar depression Zoloft, -Bladder outflow obstruction Flomax -Full code Care was discussed with patient. Questions answered. Pulmonary will be c onsulted. Past Medical History Past Medical History: Coronary Artery Disease (CAD), Chest Pain / Angina, Heart Failure, Dementia, GERD/Reflux, Hyperlipidemia, Hypertension, Myocardial Infarction ([place]), Neurologic Disorder, Pneumonia, Prostate Disorder, Renal Di sease, Skin Disorder, Sleep Apnea/CPAP/BIPAP Additional Past Medical History / Comment(s): early parkinson's with essential tremors, "lewy body dementia" R nephrolithiasis with surgery, EDITH with no CPAP, Irritable Bowel Syndrome diarrhea off and on, pneumonia/bronchitis, BPH, blood in stool-EGD/colonoscopy were normal, past hiatal hernia(sx), past falls., kidney failure, Last Myocardial Infarction Date:: 06/09/13 History of Any Multi-Drug Resistant Organisms: None Reported Past Surgical History: Back Surgery, Heart Catheterization, Heart Catheterization With Stent, Hernia Repair Additional Past Surgical History / Comment(s): 05/2013 stent to LAD and then a cardiac cath which showed stent patent, Recent R kidney stone removal, 03/19/15 Laparoscopic Elizabeth fundlaplication. SKIN GRAFTS CHEST & BACK FROM BASSETT AT 13 YRS OLD., COLONOSCOPY. EGD, L lazy eye surgery as toddler. c3 c4 fusion, c4 c5 fusion. Past Anesthesia/Blood Transfusion Reactions: No Reported Reaction Additional Past Anesthesia/Blood Transfusion Reaction / Comment(s): Pt received blood in 1967 without reaction. Date of Last Stent Placement:: 12/2017 Past Psychological History: Bipolar, Depression Smoking Status: Never smoker Past Alcohol Use History: None Reported Past Drug Use History: None Reported - Past Family History Mother Family Medical History: Liver Disease Additional Family Medical History / Comment(s): Mother was an alcoholic. She of cirrhosis of the liver at age 60yrs. Father Family Medical History: Cancer, Coronary Artery Disease (CAD), Myocardial Infarction ([place]) Additional Family Medical History / Comment(s): SKIN CA. Father of a [place] at age 65 yrs. Brother(s) Family Medical History: Cancer Additional Family Medical History / Comment(s): LEUKEMIA, LYMPH NODE CA AND MULTIPLE MYELOMA. Medications and Allergies Home Medications Medication Instructions Recorded Confirmed Type Primidone [Mysoline] 100 mg PO DAILY 12/20/17 08/01/24 History Memantine [Namenda] 10 mg PO BID 02/17/20 08/01/24 History Pramipexole Di-HCl [Mirapex] 1.5 mg PO HS 02/17/20 08/01/24 History Pregabalin [Lyrica] 100 mg PO BID 03/10/21 08/01/24 History Sertraline [Zoloft] 200 mg PO DAILY 08/18/21 08/01/24 History Aspirin 81 mg PO DAILY tab 11/25/22 08/01/24 Rx HYDROcodone/APAP 5-325MG [[place] 1 tab PO Q6H PRN 02/27/23 08/01/24 History 5-325] Metoprolol Succinate (ER) [Toprol 25 mg PO DAILY 02/17/24 08/01/24 History XL] Primidone [Mysoline] 150 mg PO HS 02/17/24 08/01/24 History Tamsulosin [Flomax] 0.8 mg PO DAILY 05/19/24 08/01/24 History Atorvastatin [Lipitor] 40 mg PO HS #30 tab 05/24/24 08/01/24 Rx Losartan Potassium [Cozaar] 100 mg PO HS #30 tab 05/24/24 08/01/24 Rx amLODIPine [Norvasc] 5 mg PO DAILY #30 tab 05/24/24 08/01/24 Rx tiZANidine [Zanaflex] 2 mg PO TID PRN #60 tab 05/24/24 08/01/24 Rx Dabigatran [Pradaxa] 150 mg PO BID #180 capsule 07/31/24 08/01/24 Rx Amiodarone [Cordarone] See Taper PO DAILY 08/01/24 08/01/24 History Allergies Allergy/AdvReac Type Severity Reaction Status Date / Time No Known Allergies Allergy Verified 08/01/24 13:12 Physical Exam Vitals: Vital Signs Temp Pulse Resp BP Pulse Ox 08/01/24 13:25 64 22 119/80 95 08/01/24 12:24 67 26 H 102/71 95 08/01/24 11:31 77 08/01/24 11:24 61 22 104/69 98 08/01/24 11:22 65 08/01/24 10:56 97.5 F L 71 16 90/55 90 L Intake and Output 07/31/24 08/01/24 08/01/24 22:59 06:59 14:59 Other: Weight 99.79 kg Results CBC & Chem 7: 08/01/24 11:22 08/01/24 11:22 Labs: Abnormal Lab Results - Last 24 Hours (Table) 08/01/24 08/01/24 08/01/24 Range/Units 11:22 11:22 11:22 RBC 4.10 L (4.30-5.90) m/uL Hgb 12.1 L (13.0-17.5) gm/dL Hct 37.6 L (39.0-53.0) % Lymphocytes # 0.8 L (1.0-4.8) k/uL APTT 35.3 H (22.0-30.0) sec Glucose 158 H (74-99) mg/dL Total Protein 6.0 L (6.3-8.2) g/dL Albumin 3.4 L (3.5-5.0) g/dL
--- NOTE | 2024-08-01 15:46 | P.CNPUL ---
History of Present Illness Consult date: 08/01/24 Requesting physician: Pierce Chakraborty Reason for consult: dyspnea Chief complaint: Shortness of breath, cough, wheezing History of present illness: This is a 69-year-old male patient with a known history of atrial fibrillation with recent cardioversion on July 30, 2024 and discharged yesterday 07/31/2024. Last night and early this morning he developed increasing shortness of breath, cough, congestion and wheezing. He states he is a lifelong non- smoker. Chest x-ray reveals no evidence of acute pulmonary process. White count 6.0. Hemoglobin 12.1. Platelets 195. D-dimer less than 0.17. Sodium 138. Potassium 3.8. Bicarb 27. BUN 11. Creatinine 0.75. Troponin negative x 1. proBNP 1340. Viral screen is negative. EKG reveals normal sinus rhythm without acute ST or T wave abnormalities. He is seen today in consultation in the emergency department. He is currently resting comfortably on a stretcher. Awake and alert in no acute distress. He is somewhat bronchospastic and wheezing. Maintaining O2 saturations in the mid 90s on 2 L/min per nasal cannula. He is afebrile. Hemodynamically stable. Has been initiated on DuoNeb and elations, Pulmicort inhalation and IV Solu-Medrol. Lovenox for DVT prophylaxis. He has been initiated on doxycycline. Review of Systems REVIEW OF SYSTEMS: CONSTITUTIONAL: Denies any recent significant weight loss or weight gain. EYES: Denies change in vision. EARS, NOSE, MOUTH, THROAT: Denies headaches, denies sore throat. CARDIOVASCULAR: Denies chest pain, palpitations or syncopal episodes. RESPIRATORY: Positive for shortness of breath, cough, congestion no hemoptysis. GASTROINTESTINAL: Denies change in appetite, denies abdominal pain GENITOURINARY: Denies hematuria, denies infections. MUSKULOSKELETAL: Denies pain, denies swelling. INTEGUMENTARY: Denies rash, denies eczema. NEUROLOGICAL: Denies recent memory loss, no recent seizure activity. PSYCHIATRIC: Denies anxiety, denies depression. HEMATOLOGIC/LYMPHATIC: Denies anemia, denies enlarged lymph nodes. Past Medical History Past Medical History: Coronary Artery Disease (CAD), Chest Pain / Angina, Heart Failure, Dementia, GERD/Reflux, Hyperlipidemia, Hypertension, Myocardial Infarction (VT), Neurologic Disorder, Pneumonia, Prostate Disorder, Renal Disease, Skin Disorder, Sleep Apnea/CPAP/BIPAP Additional Past Medical History / Comment(s): early parkinson's with essential t remors, "lewy body dementia" R nephrolithiasis with surgery, EDITH with no CPAP, Irritable Bowel Syndrome diarrhea off and on, pneumonia/bronchitis, BPH, blood in stool-EGD/colonoscopy were normal, past hiatal hernia(sx), past falls., kidney failure, Last Myocardial Infarction Date:: 06/09/13 History of Any Multi-Drug Resistant Organisms: None Reported Past Surgical History: Back Surgery, Heart Catheterization, Heart Cathete rization With Stent, Hernia Repair Additional Past Surgical History / Comment(s): 05/2013 stent to LAD and then a cardiac cath which showed stent patent, Recent R kidney stone removal, 03/19/15 Laparoscopic Elizabeth fundlaplication. SKIN GRAFTS CHEST & BACK FROM BASSETT AT 13 YRS OLD., COLONOSCOPY. EGD, L lazy eye surgery as toddler. c3 c4 fusion, c4 c5 fusion. Past Anesthesia/Blood Transfusion Reactions: No Reported Reaction Additional Past Anesthesia/Blood Transfusion Reaction / Comment(s): Pt received blood in 1967 without reaction. Date of Last Stent Placement:: 12/2017 Past Psychological History: Bipolar, Depression Smoking Status: Never smoker Past Alcohol Use History: None Reported Past Drug Use History: None Reported - Past Family History Mother Family Medical History: Liver Disease Additional Family Medical History / Comment(s): Mother was an alcoholic. She of cirrhosis of the liver at age 60yrs. Father Family Medical History: Cancer, Coronary Artery Disease (CAD), Myocardial Infarction (VT) Additional Family Medical History / Comment(s): SKIN CA. Father of a VT at age 65 yrs. Brother(s) Family Medical History: Cancer Additional Family Medical History / Comment(s): LEUKEMIA, LYMPH NODE CA AND MULTIPLE MYELOMA. Medications and Allergies Home Medications Medication Instructions Recorded Confirmed Type Primidone [Mysoline] 100 mg PO DAILY 12/20/17 08/01/24 History Memantine [Namenda] 10 mg PO BID 02/17/20 08/01/24 History Pramipexole Di-HCl [Mirapex] 1.5 mg PO HS 02/17/20 08/01/24 History Pregabalin [Lyrica] 100 mg PO BID 03/10/21 08/01/24 History Sertraline [Zoloft] 200 mg PO DAILY 08/18/21 08/01/24 History Aspirin 81 mg PO DAILY tab 11/25/22 08/01/24 Rx HYDROcodone/APAP 5-325MG [[place] 1 tab PO Q6H PRN 02/27/23 08/01/24 History 5-325] Metoprolol Succinate (ER) [Toprol 25 mg PO DAILY 02/17/24 08/01/24 History XL] Primidone [Mysoline] 150 mg PO HS 02/17/24 08/01/24 History Tamsulosin [Flomax] 0.8 mg PO DAILY 05/19/24 08/01/24 History Atorvastatin [Lipitor] 40 mg PO HS #30 tab 05/24/24 08/01/24 Rx Losartan Potassium [Cozaar] 100 mg PO HS #30 tab 05/24/24 08/01/24 Rx amLODIPine [Norvasc] 5 mg PO DAILY #30 tab 05/24/24 08/01/24 Rx tiZANidine [Zanaflex] 2 mg PO TID PRN #60 tab 05/24/24 08/01/24 Rx Dabigatran [Pradaxa] 150 mg PO BID #180 capsule 07/31/24 08/01/24 Rx Amiodarone [Cordarone] See Taper PO DAILY 08/01/24 08/01/24 History Allergies Allergy/AdvReac Type Severity Reaction Status Date / Time No Known Allergies Allergy Verified 08/01/24 13:12 Physical Exam Vitals: Vital Signs Temp Pulse Resp BP Pulse Ox 08/01/24 13:25 64 22 119/80 95 08/01/24 12:24 67 26 H 102/71 95 08/01/24 11:31 77 08/01/24 11:24 61 22 104/69 98 08/01/24 11:22 65 08/01/24 10:56 97.5 F L 71 16 90/55 90 L Intake and Output 08/01/24 08/01/24 08/01/24 06:59 14:59 22:59 Other: Weight 99.79 kg GENERAL EXAM: Alert, pleasant 69-year-old male, on 2 L nasal cannula, fairly comfortable in no apparent distress. HEAD: Normocephalic. EYES: Normal reaction of pupils, equal size. NOSE: Clear with pink turbinates. THROAT: No erythema or exudates. NECK: No masses, no JVD. CHEST: No chest wall deformity. LUNGS: Equal air entry with bilateral end expiratory wheeze. CVS: S1 and S2 normal with no audible murmur, regular rhythm. ABDOMEN: No hepatosplenomegaly, normal bowel sounds, no guarding or rigidity. SPINE: No scoliosis or deformity SKIN: No rashes CENTRAL NERVOUS SYSTEM: No focal deficits, tone is normal in all 4 extremities. EXTREMITIES: There is no peripheral edema. No clubbing, no cyanosis. Periph eral pulses are intact. Results - Laboratory Findings CBC and BMP: 08/01/24 11:22 08/01/24 11:22 PT/INR, D-dimer PT 12.2 sec (10.0-12.5) 08/01/24 11: INR 1.1 (<1.2) 08/01/24 11: D-Dimer <0.17 mg/L FEU (<0.60) 08/01/24 11:22 Abnormal lab findings: Abnormal Labs 08/01/24 08/01/24 08/01/24 11:22 11:22 11:22 RBC 4.10 L Hgb 12.1 L Hct 37.6 L Lymphocytes # 0.8 L APTT 35.3 H Glucose 158 H Total Protein 6.0 L Albumin 3.4 L - Diagnostic Findings Chest x-ray: image reviewed Assessment and Plan Assessment: Acute hypoxemic respiratory failure secondary to an acute tracheobronchitis. No evidence of pneumonia on chest x-ray. Procalcitonin pending Lifelong non-smoker Recent admission for atrial fibrillation with rapid ventricular response status post SUSY/cardioversion on 07/30/2024, discharged 07/31/2024. Remains in sinus rhythm History of coronary disease with previous stenting to the RCA, circumflex and LAD Hypertension Hyperlipidemia History of chronic diastolic congestive heart failure Carotid stenosis Plan: The patient was seen and evaluated Chest x-ray, labs and medications reviewed Continue DuoNeb inhalations, Pulmicort inhalations Continue IV Solu-Medrol Continue doxycycline Check a procalcitonin Titrate down the FiO2 as tolerated We will continue to follow and make further recommendations based on his clinical status I have personally seen and examined the patient, performed the documentation and the assessment and plan as written. Number of minutes spent on the visit: 20.
[2024-08-01] MEDS ORDERED: IPRATROPIUM-ALBUTEROL 3 ML NEB INHALATION SCH (16:00)
[2024-08-01] MEDS: DOXYCYCLINE 100 MG CAP PO SCH (16:04)
[2024-08-01] MEDS: guaiFENesin 600 MG TABLET.ER PO SCH (16:04)
[2024-08-01] MEDS: ENOXAPARIN 40 MG/0.4 ML SYRINGE SQ SCH (16:05)
[2024-08-01 16:33] LABS: Appearance,Urine Clear (Clear); Bilirubin,Urine Negative (Negative); Blood,Urine Negative (Negative); Color,Urine Light Yellow; Glucose,Urine (UA) Negative (Negative); Ketones,Urine Negative (Negative); Leukocyte Esterase,Urine Negative (Negative); Nitrite,Urine Negative (Negative); PH, Urine 7.5 (5.0-8.0); Protein,Urine Negative (Negative); Specific Gravity,Urine 1.016 (1.001-1.035)
[2024-08-01] MEDS: IPRATROPIUM-ALBUTEROL 3 ML NEB INHALATION SCH (16:50)
[2024-08-01] MEDS: methylPREDNISolone SOD SUCCI 125 MG/2 ML VIAL IV SCH (18:32)
[2024-08-01] MEDS: BUDESONIDE 1 MG/2 ML NEBU INHALATION SCH (19:52)
[2024-08-01] MEDS: ATORVASTATIN 40 MG TAB PO SCH (20:53)
[2024-08-01] MEDS: PREGABALIN 100 MG CAP PO SCH (20:54)
[2024-08-01] MEDS: LOSARTAN 50 MG TAB PO SCH (20:54)
[2024-08-01] MEDS: MEMANTINE 10 MG TAB PO SCH (20:54)
[2024-08-01] MEDS: PRIMIDONE 50 MG TAB PO SCH (20:55)
[2024-08-01] MEDS: MELATONIN 3 MG TABLET PO PRN (21:21)
[2024-08-01] MEDS: PRAMIPEXOLE 0.5 MG TAB PO SCH (21:22)
[2024-08-01] MEDS: tiZANidine 4 MG TAB PO PRN (21:22)
[2024-08-02] MEDS: amLODIPine 5 MG TAB PO SCH (09:37)
[2024-08-02] MEDS: ASPIRIN 81 MG PO SCH (09:37)
[2024-08-02] MEDS: PANTOPRAZOLE 40 MG TABLET PO SCH (09:37)
[2024-08-02] MEDS: TAMSULOSIN 0.4 MG CAP.ER.24H PO SCH (09:38)
[2024-08-02] MEDS: METOPROLOL SUCCINATE (ER) 25 MG TAB.ER.24H PO SCH (09:38)
[2024-08-02] MEDS: PRIMIDONE 50 MG TAB PO SCH (09:38)
[2024-08-02] MEDS: AMIODARONE 100 MG TAB PO SCH (09:45)
[2024-08-02] MEDS: SERTRALINE 100 MG TAB PO SCH (09:45)
--- NOTE | 2024-08-02 10:03 | P.PN ---
Subjective Progress Note Date: 08/02/24 This is a 69-year-old male patient with a known history of atrial fibrillation with recent cardioversion on July 30, 2024 and discharged yesterday 07/31/2024. Last night and early this morning he developed increasing shortness of breath, cough, congestion and wheezing. He states he is a lifelong non- smoker. Chest x-ray reveals no evidence of acute pulmonary process. White count 6.0. Hemoglobin 12.1. Platelets 195. D-dimer less than 0.17. Sodium 138. Potassium 3.8. Bicarb 27. BUN 11. Creatinine 0.75. Troponin negative x 1. proBNP 1340. Viral screen is negative. EKG reveals normal sinus rhythm without acute ST or T wave abnormalities. He is seen today in consultation in the emergency department. He is currently resting comfortably on a stretcher. Awake and alert in no acute distress. He is somewhat bronchospastic and wheezing. Maintaining O2 saturations in the mid 90s on 2 L/min per nasal cannula. He is afebrile. Hemodynamically stable. Has been initiated on DuoNeb and elations, Pulmicort inhalation and IV Solu-Medrol. Lovenox for DVT prophylaxis. He has been initiated on doxycycline. The patient is seen today August 02, 2024 in follow-up on the regular medical floor. He is awake and alert in no acute distress. He is maintaining good O2 saturations in the 90s on 2 L/min per nasal cannula. He is having some abdominal discomfort from coughing. He is still with minimal wheeze. He does admit to having issues with food getting stuck at times in his esophagus. He had a previous Niesen fundoplication in the past. Suspect probably acid reflux triggering his bronchospasms versus underlying asthma. Patient's Pulmicort inhalations, Mucinex. He is on Lovenox for DVT prophylaxis. Empiric antibiotics in the form of doxycycline. Remains on IV Solu-Medrol. Objective - Vital Signs Vital signs: Vital Signs Temp 98.2 F 08/02/24 02:00 Pulse 76 08/02/24 08:23 Resp 18 08/02/24 02:00 BP 110/67 08/02/24 02:00 Pulse Ox 94 L 08/02/24 02:00 FiO2 Intake & Output 08/01/24 08/02/24 08/02/24 18:59 06:59 18:59 Intake Total 480 Balance 480 Weight 99.79 kg Intake: Oral 480 Other: Voiding Method Toilet # Voids 3 - Exam GENERAL EXAM: Alert, 69-year-old male, on 2 L nasal cannula, comfortable in no apparent distress. HEAD: Normocephalic. EYES: Normal reaction of pupils, equal size. NOSE: Clear with pink turbinates. THROAT: No erythema or exudates. NECK: No masses, no JVD. CHEST: No chest wall deformity. LUNGS: Equal air entry with bilateral end expiratory wheeze. CVS: S1 and S2 normal with no audible murmur, regular rhythm. ABDOMEN: No hepatosplenomegaly, normal bowel sounds, no guarding or rigidity. SPINE: No scoliosis or deformity SKIN: No rashes CENTRAL NERVOUS SYSTEM: No focal deficits, tone is normal in all 4 extremities. EXTREMITIES: There is no peripheral edema. No clubbing, no cyanosis. Peripheral pulses are intact. - Labs CBC & Chem 7: 08/01/24 11:22 08/01/24 11:22 Labs: Abnormal Lab Results - Last 24 Hours (Table) 08/01/24 08/01/24 08/01/24 Range/Units 11:22 11:22 11:22 RBC 4.10 L (4.30-5.90) m/uL Hgb 12.1 L (13.0-17.5) gm/dL Hct 37.6 L (39.0-53.0) % Lymphocytes # 0.8 L (1.0-4.8) k/uL APTT 35.3 H (22.0-30.0) sec Glucose 158 H (74-99) mg/dL Total Protein 6.0 L (6.3-8.2) g/dL Albumin 3.4 L (3.5-5.0) g/dL Assessment and Plan Assessment: Acute hypoxemic respiratory failure secondary to an acute tracheobronchitis. No evidence of pneumonia on chest x-ray. Possible underlying asthma, possible acid reflux Lifelong non-smoker Recent admission for atrial fibrillation with rapid ventricular response status post SUSY/cardioversion on 07/30/2024, discharged 07/31/2024. Remains in sinus rhythm History of coronary disease with previous stenting to the RCA, circumflex and L AD Hypertension Hyperlipidemia History of chronic diastolic congestive heart failure Carotid stenosis History of possible history of previous esophageal procedure possible dilatation versus Leonel fundoplication History of GERD Plan: The patient was seen and evaluated Medications reviewed Add Protonix twice daily Continue DuoNeb inhalations, Pulmicort inhalations Continue IV Solu-Medrol Titrate down the FiO2 as tolerated This patient was seen independently by the pulmonary nurse practitioner addressing pulmonary issues I have personally seen and examined the patient, performed the documentation and the assessment and plan as written. Number of minutes spent on the visit: 25.
[2024-08-02] MEDS ORDERED: DEXTROSE 50% SYRINGE 50 ML IVP PRN ×2 (16:52)
[2024-08-02 17:28] LABS: Glucose,Whole Blood 229 mg/dL (70-110)
[2024-08-02] MEDS: INSULIN ASPART (NovoLOG) 100 UNIT/ML VIAL SQ SCH (17:45)
--- NOTE | 2024-08-02 17:50 | P.PN ---
Progress Note - Text Progress Note Date: 08/02/24 Chief Complaint: Short of breath cough 69-year-old patient of Dr. Gutierrez. Chronic stable medical conditions include some cognitive impairment, GERD, hyperlipidemia, hypertension, early Parkinson's versus essential tremor, , obstructive sleep apnea does not use CPAP, irritable bowel syndrome, BPH hiatal hernia. coronary artery disease with stent. Paroxysmal atrial fibrillation. Patient was just in the hospital from July 28 through July 31. Had presented with atrial fibrillation uncontrolled. Underwent SUSY followed by cardioversion. Did well. Was discharged by cardiology. Patient is to continue on Pradaxa. Patient presented with worsening short of breath. Congestive cough. Little sputum. Having chills. Short of breath wheezing. Presented to the ER. August 02: Admitted obstructive asthma and tracheobronchitis. Still some shortness of breath cough. Continue with bronchodilators steroids doxycycline. Active Medications Acetaminophen (Acetaminophen Tab 325 Mg Tab) 650 mg PO Q4HR PRN PRN Reason: Mild Pain or Fever > 100.5 Hydrocodone Bitart/Acetaminophen (Hydrocodone/Apap 5-325mg 1 Each Tab) 1 each PO Q6H PRN PRN Reason: Pain Albuterol/Ipratropium (Ipratropium-Albuterol 3 Ml Neb) 3 ml INHALATION RT-Q2H PRN PRN Reason: Shortness Of Breath Or Wheezing Albuterol/Ipratropium (Ipratropium-Albuterol 3 Ml Neb) 3 ml INHALATION Q4H [facility] Last Admin: 08/02/24 15:11 Dose: 3 ml Amiodarone HCl (Amiodarone 100 Mg Tab) 100 mg PO DAILY [facility] Last Admin: 08/02/24 09:45 Dose: 100 mg Amlodipine Besylate (Amlodipine 5 Mg Tab) 5 mg PO DAILY [facility] Last Admin: 08/02/24 09:37 Dose: 5 mg Aspirin (Aspirin 81 Mg) 81 mg PO DAILY [facility] Last Admin: 08/02/24 09:37 Dose: 81 mg Atorvastatin Calcium (Atorvastatin 40 Mg Tab) 40 mg PO HS [facility] Last Admin: 08/01/24 20:53 Dose: 40 mg Budesonide (Budesonide 1 Mg/2 Ml Nebu) 1 mg INHALATION RT-BID [facility] Last Admin: 08/02/24 08:06 Dose: 1 mg Calcium Carbonate/Glycine (Calcium Carbonate 500 Mg Chewable) 1,000 mg PO Q4HR PRN PRN Reason: Dyspepsia Dextrose/Water (Dextrose 50% Syringe 50 Ml) 25 ml IVP PER PROTOCOL PRN; Protocol PRN Reason: Hypoglycemia Dextrose/Water (Dextrose 50% Syringe 50 Ml) 50 ml IVP PER PROTOCOL PRN; Protocol PRN Reason: Hypoglycemia Doxycycline Monohydrate (Doxycycline 100 Mg Cap) 100 mg PO BID [facility]; Protocol Last Admin: 08/02/24 10:30 Dose: 100 mg Enoxaparin Sodium (Enoxaparin 40 Mg/0.4 Ml Syringe) 40 mg SQ DAILY [facility] Last Admin: 08/02/24 09:37 Dose: 40 mg Guaifenesin (Guaifenesin 600 Mg Tablet.Er) 600 mg PO QID [facility] Last Admin: 08/02/24 12:22 Dose: 600 mg Insulin Aspart (Insulin Aspart (Novolog) 100 Unit/Ml Vial) 0 unit SQ ACHS [facility]; Protocol Lactulose (Lactulose 20 Gm/30 Ml Cup) 20 gm PO DAILY PRN PRN Reason: Constipation Losartan Potassium (Losartan 50 Mg Tab) 100 mg PO HS [facility] Last Admin: 08/01/24 20:54 Dose: 100 mg Melatonin (Melatonin 3 Mg Tablet) 3 mg PO HS PRN PRN Reason: Insomnia Last Admin: 08/01/24 21:21 Dose: 3 mg Memantine (Memantine 10 Mg Tab) 10 mg PO BID [facility] Last Admin: 08/02/24 09:38 Dose: 10 mg Methylprednisolone Sodium Succinate (Methylprednisolone Sod Succi 125 Mg/2 Ml Vial) 60 mg IV Q6HR [facility] Last Admin: 08/02/24 12:22 Dose: 60 mg Metoprolol Succinate (Metoprolol Succinate (Er) 25 Mg Tab.Er.24h) 25 mg PO DAILY [facility] Last Admin: 08/02/24 09:38 Dose: 25 mg Naloxone HCl (Naloxone 0.4 Mg/Ml 1 Ml Vial) 0.2 mg IVP Q2M PRN PRN Reason: Opioid Reversal Ondansetron HCl (Ondansetron 4 Mg/2 Ml Vial) 4 mg IVP Q8HR PRN PRN Reason: Nausea And Vomiting Pantoprazole Sodium (Pantoprazole 40 Mg Tablet) 40 mg PO AC-BID [facility] Last Admin: 08/02/24 09:37 Dose: 40 mg Pramipexole Dihydrochloride (Pramipexole 0.5 Mg Tab) 1.5 mg PO HS [facility] Last Admin: 08/01/24 21:22 Dose: 1.5 mg Pregabalin (Pregabalin 100 Mg Cap) 100 mg PO BID [facility] Last Admin: 08/02/24 09:38 Dose: 100 mg Primidone (Primidone 50 Mg Tab) 150 mg PO HS [facility] Last Admin: 08/01/24 20:55 Dose: 150 mg Primidone (Primidone 50 Mg Tab) 100 mg PO DAILY [facility] Last Admin: 08/02/24 09:38 Dose: 100 mg Sertraline HCl (Sertraline 100 Mg Tab) 200 mg PO DAILY [facility] Last Admin: 08/02/24 09:45 Dose: 200 mg Tamsulosin HCl (Tamsulosin 0.4 Mg Cap.Er.24h) 0.8 mg PO DAILY [facility] Last Admin: 08/02/24 09:38 Dose: 0.8 mg Tizanidine HCl (Tizanidine 4 Mg Tab) 2 mg PO TID PRN PRN Reason: Muscle Spasm Last Admin: 08/01/24 21:22 Dose: 2 mg Social history: lives with no smoking. Stopped drinking alcohol in 2004. Prior to that used to drink every day On examination: VITAL SIGNS: 98.1, 92, 18, 142 x 70, 93% on 2 L GENERAL APPEARANCE: BMI 28.2, up in recliner, some cough HEENT: Normal external appearance of nose and ear. Oral cavity normal EYES: Pupils equal. Conjunctiva normal. NECK: JVD not raised. Mass not palpable. RESPIRATORY: Respiratory effort increased, diminished breath sounds, expiratory wheezing. Expiratory crackles.. CARDIOVASCULAR: First and second sounds normal. No edema. ABDOMEN: Soft. Liver and spleen not palpable. No tenderness. No mass palpable. PSYCHIATRY: Alert and oriented x3. Mood and affect a bit anxious NEUROLOGICAL: Cranial nerves grossly intact per sensation grossly intact LYMPHATICS: No lymph nodes were palpable neck and axilla INVESTIGATIONS, reviewed in the clinical context: August 01, 2024: White count 6 hemoglobin 12.1 platelets 195 sodium 138 potassium 3.8 creatinine 0.75 Troponin I less than 0.012 proBNP 1340 Influenza type A, type B, RSV, COVID-19: Not detected EKG tracing personally reviewed by me-normal sinus rhythm. Chest x-ray film personally reviewed by me-some cardiomegaly. Assessment and plan: -Acute severe obstructive asthma exacerbation, in a non-smoker, precipitated by tracheobronchitis slow to respond DuoNeb every 4. IV Solu-Medrol. Nebulized Pulmicort. Doxycycline 100 mg twice daily. Mucinex -Paroxysmal atrial fibrillation: Sinus rhythm Toprol-XL. Pradaxa. Amiodarone July 30 patient underwent SUSY followed by DC cardioversion. -Coronary artery disease with prior history of stent Aspirin, Toprol-XL -GERD Tums when necessary -Hyperlipidemia Lipitor -Essential hypertension Amlodipine. Cozaar. -BPH -Obstructive sleep apnea does not use CPAP -Early Parkinson disorder with tremors Mirapex, primidone -Irritable bowel syndrome -Bipolar depression Zoloft, -Bladder outflow obstruction Flomax -Full code Discussed. Continue current treatment plan. Past Medical History Past Medical History: Coronary Artery Disease (CAD), Chest Pain / Angina, Heart Failure, Dementia, GERD/Reflux, Hyperlipidemia, Hypertension, Myocardial Infarction ([place]), Neurologic Disorder, Pneumonia, Prostate Disorder, Renal Disease, Skin Disorder, Sleep Apnea/CPAP/BIPAP Additional Past Medical History / Comment(s): early parkinson's with essential tremors, "lewy body dementia" R nephrolithiasis with surgery, EDITH with no CPAP, Irritable Bowel Syndrome diarrhea off and on, pneumonia/bronchitis, BPH, blood in stool-EGD/colonoscopy were normal, past hiatal hernia(sx), past falls., kidney failure, Last Myocardial Infarction Date:: 06/09/13 History of Any Multi-Drug Resistant Organisms: None Reported Past Surgical History: Back Surgery, Heart Catheterization, Heart Catheterization With Stent, Hernia Repair Additional Past Surgical History / Comment(s): 05/2013 stent to LAD and then a cardiac cath which showed stent patent, Recent R kidney stone removal, 03/19/15 Laparoscopic Elizabeth fundlaplication. SKIN GRAFTS CHEST & BACK FROM BASSETT AT 13 YRS OLD., COLONOSCOPY. EGD, L connie eye surgery as toddler. c3 c4 fusion, c4 c5 fusion. Past Anesthesia/Blood Transfusion Reactions: No Reported Reaction Additional Past Anesthesia/Blood Transfusion Reaction / Comment(s): Pt received blood in 1967 without reaction. Date of Last Stent Placement:: 12/2017 Past Psychological History: Bipolar, Depression Smoking Status: Never smoker Past Alcohol Use History: None Reported Past Drug Use History: None Reported
[2024-08-02 20:36] LABS: Glucose,Whole Blood 154 mg/dL (70-110)
[2024-08-03 06:16] LABS: Glucose,Whole Blood 219 mg/dL (70-110)
[2024-08-03] MEDS: SYMBICORT 160-4.5 MCG INHALER INHALATION SCH (08:20)
--- NOTE | 2024-08-03 10:45 | P.PN ---
Subjective Progress Note Date: 08/03/24 This is a 69-year-old male patient with a known history of atrial fibrillation with recent cardioversion on July 30, 2024 and discharged yesterday 07/31/2024. Last night and early this morning he developed increasing shortness of breath, cough, congestion and wheezing. He states he is a lifelong non- smoker. Chest x-ray reveals no evidence of acute pulmonary process. White count 6.0. Hemoglobin 12.1. Platelets 195. D-dimer less than 0.17. Sodium 138. Potassium 3.8. Bicarb 27. BUN 11. Creatinine 0.75. Troponin negative x 1. proBNP 1340. Viral screen is negative. EKG reveals normal sinus rhythm without acute ST or T wave abnormalities. He is seen today in consultation in the emergency department. He is currently resting comfortably on a stretcher. Awake and alert in no acute distress. He is somewhat bronchospastic and wheezing. Maintaining O2 saturations in the mid 90s on 2 L/min per nasal cannula. He is afebrile. Hemodynamically stable. Has been initiated on DuoNeb and elations, Pulmicort inhalation and IV Solu-Medrol. Lovenox for DVT prophylaxis. He has been initiated on doxycycline. The patient is seen today August 02, 2024 in follow-up on the regular medical floor. He is awake and alert in no acute distress. He is maintaining good O2 saturations in the 90s on 2 L/min per nasal cannula. He is having some abdominal discomfort from coughing. He is still with minimal wheeze. He does admit to having issues with food getting stuck at times in his esophagus. He had a previous Niesen fundoplication in the past. Suspect probably acid reflux triggering his bronchospasms versus underlying asthma. Patient's Pulmicort inhalations, Mucinex. He is on Lovenox for DVT prophylaxis. Empiric antibiotics in the form of doxycycline. Remains on IV Solu-Medrol. The patient is seen today August 03, 2024 in follow-up on the regular medical floor. He is resting comfortably in bed. Awake and alert in no acute distress. He is improved today compared to yesterday. Not quite back to his baseline. He is maintaining O2 saturations in the 90s on 2 L/min per nasal cannula. He has had less acid reflux following the initiation of the Protonix. He is continued on DuoNeb ventilations, Symbicort, Solu-Medrol. Lovenox for DVT prophylaxis. Glucose 219. Objective - Vital Signs Vital signs: Vital Signs Temp 97.8 F 08/03/24 07:00 Pulse 84 08/03/24 08:22 Resp 19 08/03/24 08:00 BP 130/75 08/03/24 07:00 Pulse Ox 93 L 08/03/24 07:00 FiO2 Intake & Output 08/02/24 08/03/24 08/03/24 18:59 06:59 18:59 Intake Total 358 118 Balance 358 118 Intake: Oral 358 118 Other: Voiding Method Toilet Toilet # Voids 2 1 - Exam GENERAL EXAM: Alert, 69-year-old male, resting in bed, on 2 L nasal cannula, in no apparent distress. HEAD: Normocephalic. EYES: Normal reaction of pupils, equal size. NOSE: Clear with pink turbinates. THROAT: No erythema or exudates. NECK: No masses, no JVD. CHEST: No chest wall deformity. LUNGS: Equal air entry with bilateral end expiratory wheeze. CVS: S1 and S2 normal with no audible murmur, regular rhythm. ABDOMEN: No hepatosplenomegaly, normal bowel sounds, no guarding or rigidity. SPINE: No scoliosis or deformity SKIN: No rashes CENTRAL NERVOUS SYSTEM: No focal deficits, tone is normal in all 4 extremities. EXTREMITIES: There is no peripheral edema. No clubbing, no cyanosis. Peripheral pulses are intact. - Labs CBC & Chem 7: 08/01/24 11:22 08/01/24 11:22 Labs: Abnormal Lab Results - Last 24 Hours (Table) 08/02/24 08/02/24 08/03/24 Range/Units 17:27 20:35 06:15 POC Glucose (mg/dL) 229 H 154 H 219 H (70-110) mg/dL Assessment and Plan Assessment: Acute hypoxemic respiratory failure secondary to an acute tracheobronchitis. No evidence of pneumonia on chest x-ray. Possible underlying asthma, possible acid reflux Lifelong non-smoker Recent admission for atrial fibrillation with rapid ventricular response status post SUSY/cardioversion on 07/30/2024, discharged 07/31/2024. Remains in sinus rhythm History of coronary disease with previous stenting to the RCA, circumflex and LAD Hypertension Hyperlipidemia History of chronic diastolic congestive heart failure Carotid stenosis History of possible history of previous esophageal procedure possible dilatation versus Leonel fundoplication History of GERD Plan: The patient was seen and evaluated Medications reviewed Continue Protonix twice daily Continue DuoNeb inhalations, Pulmicort inhalations Continue IV Solu-Medrol Titrate down the FiO2 as tolerated Probable discharge in the a.m. I have personally seen and examined the patient, performed the documentation and the assessment and plan as written. Number of minutes spent on the visit: 10.
[2024-08-03 12:03] LABS: Glucose,Whole Blood 298 mg/dL (70-110)
[2024-08-03 17:18] LABS: Glucose,Whole Blood 214 mg/dL (70-110)
--- NOTE | 2024-08-03 19:51 | P.PN ---
Progress Note - Text Progress Note Date: 08/03/24 Chief Complaint: Short of breath cough 69-year-old patient of Dr. Gutierrez. Chronic stable medical conditions include some cognitive impairment, GERD, hyperlipidemia, hypertension, early Parkinson's versus essential tremor, , obstructive sleep apnea does not use CPAP, irritable bowel syndrome, BPH hiatal hernia. coronary artery disease with stent. Paroxysmal atrial fibrillation. Patient was just in the hospital from July 28 through July 31. Had presented with atrial fibrillation uncontrolled. Underwent SUSY followed by cardioversion. Did well. Was discharged by cardiology. Patient is to continue on Pradaxa. Patient presented with worsening short of breath. Congestive cough. Little sputum. Having chills. Short of breath wheezing. Presented to the ER. August 02: Admitted obstructive asthma and tracheobronchitis. Still some shortness of breath cough. Continue with bronchodilators steroids doxycycline. August 03: Feeling better but still has some congested cough and shortness of breath. Remains on bronchodilators steroids. Reminded to use incentive spirometry more frequently. Increase activity. Patient has been walking around the room. Active Medications Acetaminophen (Acetaminophen Tab 325 Mg Tab) 650 mg PO Q4HR PRN PRN Reason: Mild Pain or Fever > 100.5 Hydrocodone Bitart/Acetaminophen (Hydrocodone/Apap 5-325mg 1 Each Tab) 1 each PO Q6H PRN PRN Reason: Pain Albuterol/Ipratropium (Ipratropium-Albuterol 3 Ml Neb) 3 ml INHALATION RT-Q2H PRN PRN Reason: Shortness Of Breath Or Wheezing Albuterol/Ipratropium (Ipratropium-Albuterol 3 Ml Neb) 3 ml INHALATION Q4H [facility] Last Admin: 08/03/24 19:44 Dose: 3 ml Amiodarone HCl (Amiodarone 100 Mg Tab) 100 mg PO DAILY [facility] Last Admin: 08/03/24 08:52 Dose: 100 mg Amlodipine Besylate (Amlodipine 5 Mg Tab) 5 mg PO DAILY [facility] Last Admin: 08/03/24 08:52 Dose: 5 mg Aspirin (Aspirin 81 Mg) 81 mg PO DAILY [facility] Last Admin: 08/03/24 08:52 Dose: 81 mg Atorvastatin Calcium (Atorvastatin 40 Mg Tab) 40 mg PO HS [facility] Last Admin: 08/02/24 21:55 Dose: 40 mg Budesonide/Formoterol Fumarate (Symbicort 160-4.5 Mcg Inhaler) 2 puff INHALATION RT-BID [facility] Last Admin: 08/03/24 19:44 Dose: 2 puff Calcium Carbonate/Glycine (Calcium Carbonate 500 Mg Chewable) 1,000 mg PO Q4HR PRN PRN Reason: Dyspepsia Dextrose/Water (Dextrose 50% Syringe 50 Ml) 25 ml IVP PER PROTOCOL PRN; Protocol PRN Reason: Hypoglycemia Dextrose/Water (Dextrose 50% Syringe 50 Ml) 50 ml IVP PER PROTOCOL PRN; Protocol PRN Reason: Hypoglycemia Doxycycline Monohydrate (Doxycycline 100 Mg Cap) 100 mg PO BID [facility]; Protocol Last Admin: 08/03/24 08:51 Dose: 100 mg Enoxaparin Sodium (Enoxaparin 40 Mg/0.4 Ml Syringe) 40 mg SQ DAILY [facility] Last Admin: 08/03/24 08:52 Dose: 40 mg Guaifenesin (Guaifenesin 600 Mg Tablet.Er) 600 mg PO QID [facility] Last Admin: 08/03/24 17:42 Dose: 600 mg Insulin Aspart (Insulin Aspart (Novolog) 100 Unit/Ml Vial) 0 unit SQ ACHS [facility]; Protocol Last Admin: 08/03/24 17:42 Dose: 4 unit Lactulose (Lactulose 20 Gm/30 Ml Cup) 20 gm PO DAILY PRN PRN Reason: Constipation Losartan Potassium (Losartan 50 Mg Tab) 100 mg PO HS [facility] Last Admin: 08/02/24 21:56 Dose: 100 mg Melatonin (Melatonin 3 Mg Tablet) 3 mg PO HS PRN PRN Reason: Insomnia Last Admin: 08/03/24 01:25 Dose: 3 mg Memantine (Memantine 10 Mg Tab) 10 mg PO BID [facility] Last Admin: 08/03/24 08:52 Dose: 10 mg Methylprednisolone Sodium Succinate (Methylprednisolone Sod Succi 125 Mg/2 Ml Vial) 60 mg IV Q6HR [facility] Last Admin: 08/03/24 18:07 Dose: 60 mg Metoprolol Succinate (Metoprolol Succinate (Er) 25 Mg Tab.Er.24h) 25 mg PO DAILY [facility] Last Admin: 08/03/24 08:51 Dose: 25 mg Naloxone HCl (Naloxone 0.4 Mg/Ml 1 Ml Vial) 0.2 mg IVP Q2M PRN PRN Reason: Opioid Reversal Ondansetron HCl (Ondansetron 4 Mg/2 Ml Vial) 4 mg IVP Q8HR PRN PRN Reason: Nausea And Vomiting Pantoprazole Sodium (Pantoprazole 40 Mg Tablet) 40 mg PO AC-BID [facility] Last Admin: 08/03/24 17:42 Dose: 40 mg Pramipexole Dihydrochloride (Pramipexole 0.5 Mg Tab) 1.5 mg PO HS [facility] Last Admin: 08/02/24 21:55 Dose: 1.5 mg Pregabalin (Pregabalin 100 Mg Cap) 100 mg PO BID [facility] Last Admin: 08/03/24 08:52 Dose: 100 mg Primidone (Primidone 50 Mg Tab) 150 mg PO HS [facility] Last Admin: 08/02/24 21:55 Dose: 150 mg Primidone (Primidone 50 Mg Tab) 100 mg PO DAILY [facility] Last Admin: 08/03/24 08:50 Dose: 100 mg Sertraline HCl (Sertraline 100 Mg Tab) 200 mg PO DAILY [facility] Last Admin: 08/03/24 08:52 Dose: 200 mg Tamsulosin HCl (Tamsulosin 0.4 Mg Cap.Er.24h) 0.8 mg PO DAILY [facility] Last Admin: 08/03/24 08:52 Dose: 0.8 mg Tizanidine HCl (Tizanidine 4 Mg Tab) 2 mg PO TID PRN PRN Reason: Muscle Spasm Last Admin: 08/03/24 01:25 Dose: 2 mg Social history: lives with no smoking. Stopped drinking alcohol in 2004. Prior to that used to drink every day On examination: VITAL SIGNS: 97.8, 80, 19, 1 1 6% 1, 91% on 2 L GENERAL APPEARANCE: BMI 28.2, sitting edge of the bed HEENT: Normal external appearance of nose and ear. Oral cavity normal EYES: Pupils equal. Conjunctiva normal. NECK: JVD not raised. Mass not palpable. RESPIRATORY: Respiratory effort increased, diminished breath sounds, expiratory wheezing. Expiratory crackles..: Slight improvement CARDIOVASCULAR: First and second sounds normal. No edema. ABDOMEN: Soft. Liver and spleen not palpable. No tenderness. No mass palpable. PSYCHIATRY: Alert and oriented x3. Mood and affect a bit anxious NEUROLOGICAL: Cranial nerves grossly intact per sensation grossly intact LYMPHATICS: No lymph nodes were palpable neck and axilla INVESTIGATIONS, reviewed in the clinical context: August 01, 2024: White count 6 hemoglobin 12.1 platelets 195 sodium 138 potassium 3.8 creatinine 0.75 Troponin I less than 0.012 proBNP 1340 Influenza type A, type B, RSV, COVID-19: Not detected EKG tracing personally reviewed by me-normal sinus rhythm. Chest x-ray film personally reviewed by me-some cardiomegaly. Assessment and plan: -Acute severe obstructive asthma exacerbation, in a non-smoker, precipitated by tracheobronchitis: Slow to respond DuoNeb every 4. IV Solu-Medrol. Nebulized Pulmicort. Doxycycline 100 mg twice daily. Mucinex -Paroxysmal atrial fibrillation: Sinus rhythm Toprol-XL. Pradaxa. Amiodarone July 30 patient underwent SUSY followed by DC cardioversion. -Coronary artery disease with prior history of stent Aspirin, Toprol-XL -GERD Tums when necessary -Hyperlipidemia Lipitor -Essential hypertension Amlodipine. Cozaar. -BPH -Obstructive sleep apnea does not use CPAP -Early Parkinson disorder with tremors Mirapex, primidone -Irritable bowel syndrome -Bipolar depression Zoloft, -Bladder outflow obstruction Flomax -Full code Continue current treatment plan. Increased frequency use of incentive spirometry Past Medical History Past Medical History: Coronary Artery Disease (CAD), Chest Pain / Angina, Heart Failure, Dementia, GERD/Reflux, Hyperlipidemia, Hypertension, Myocardial Infarction (GA), Neurologic Disorder, Pneumonia, Prostate Disorder, Renal Disease, Skin Disorder, Sleep Apnea/CPAP/BIPAP Additional Past Medical History / Comment(s): early parkinson's with essential tremors, "lewy body dementia" R nephrolithiasis with surgery, EDITH with no CPAP, Irritable Bowel Syndrome diarrhea off and on, pneumonia/bronchitis, BPH, blood in stool-EGD/colonoscopy were normal, past hiatal hernia(sx), past falls., kidney failure, Last Myocardial Infarction Date:: 06/09/13 History of Any Multi-Drug Resistant Organisms: None Reported Past Surgical History: Back Surgery, Heart Catheterization, Heart Catheterization With Stent, Hernia Repair Additional Past Surgical History / Comment(s): 05/2013 stent to LAD and then a cardiac cath which showed stent patent, Recent R kidney stone removal, 03/19/15 Laparoscopic Elizabeth fundlaplication. SKIN GRAFTS CHEST & BACK FROM [place] AT 13 YRS OLD., COLONOSCOPY. EGD, L lazy eye surgery as toddler. c3 c4 fusion, c4 c5 fusion. Past Anesthesia/Blood Transfusion Reactions: No Reported Reaction Additional Past Anesthesia/Blood Transfusion Reaction / Comment(s): Pt received blood in 1967 without reaction. Date of Last Stent Placement:: 12/2017 Past Psychological History: Bipolar, Depression Smoking Status: Never smoker Past Alcohol Use History: None Reported Past Drug Use History: None Reported
[2024-08-03 22:21] LABS: Glucose,Whole Blood 137 mg/dL (70-110)
[2024-08-03] MEDS: HYDROcodone/APAP 5-325MG 1 EACH TAB PO PRN (22:27)
[2024-08-04 06:11] LABS: Glucose,Whole Blood 149 mg/dL (70-110)
[2024-08-04 08:34] VITALS: BP 159/96; PULSE 70; RESP 17; TEMP 98.5
--- NOTE | 2024-08-04 11:12 | P.PN ---
Subjective Progress Note Date: 08/04/24 This is a 69-year-old male patient with a known history of atrial fibrillation with recent cardioversion on July 30, 2024 and discharged yesterday 07/31/2024. Last night and early this morning he developed increasing shortness of breath, cough, congestion and wheezing. He states he is a lifelong non- smoker. Chest x-ray reveals no evidence of acute pulmonary process. White count 6.0. Hemoglobin 12.1. Platelets 195. D-dimer less than 0.17. Sodium 138. Potassium 3.8. Bicarb 27. BUN 11. Creatinine 0.75. Troponin negative x 1. proBNP 1340. Viral screen is negative. EKG reveals normal sinus rhythm without acute ST or T wave abnormalities. He is seen today in consultation in the emergency department. He is currently resting comfortably on a stretcher. Awake and alert in no acute distress. He is somewhat bronchospastic and wheezing. Maintaining O2 saturations in the mid 90s on 2 L/min per nasal cannula. He is afebrile. Hemodynamically stable. Has been initiated on DuoNeb and elations, Pulmicort inhalation and IV Solu-Medrol. Lovenox for DVT prophylaxis. He has been initiated on doxycycline. The patient is seen today August 02, 2024 in follow-up on the regular medical floor. He is awake and alert in no acute distress. He is maintaining good O2 saturations in the 90s on 2 L/min per nasal cannula. He is having some abdominal discomfort from coughing. He is still with minimal wheeze. He does admit to having issues with food getting stuck at times in his esophagus. He had a previous Niesen fundoplication in the past. Suspect probably acid reflux triggering his bronchospasms versus underlying asthma. Patient's Pulmicort inhalations, Mucinex. He is on Lovenox for DVT prophylaxis. Empiric antibiotics in the form of doxycycline. Remains on IV Solu-Medrol. The patient is seen today August 03, 2024 in follow-up on the regular medical floor. He is resting comfortably in bed. Awake and alert in no acute distress. He is improved today compared to yesterday. Not quite back to his baseline. He is maintaining O2 saturations in the 90s on 2 L/min per nasal cannula. He has had less acid reflux following the initiation of the Protonix. He is continued on DuoNeb ventilations, Symbicort, Solu-Medrol. Lovenox for DVT prophylaxis. Glucose 219. The patient is seen today August 04, 2024 in follow-up on the regular medical floor. He is up ambulating in his room. Awake and alert in no acute distress. Maintaining good O2 saturations in the 90s on 2 L/min per nasal cannula. He is afebrile. Hemodynamically stable. Glucose 149. He remains on DuoNeb inhalations, Symbicort, Solu-Medrol. Lovenox for DVT prophylaxis. Objective - Vital Signs Vital signs: Vital Signs Temp 98.5 F 08/04/24 07:00 Pulse 70 08/04/24 08:00 Resp 17 08/04/24 08:00 BP 159/96 08/04/24 07:00 Pulse Ox 92 L 08/04/24 07:00 FiO2 Intake & Output 08/03/24 08/04/24 08/04/24 18:59 06:59 18:59 Intake Total 118 118 Balance 118 118 Intake: Oral 118 118 Other: Voiding Method Toilet Toilet Toilet # Voids 3 2 # Bowel Movements 0 - Exam GENERAL EXAM: Alert, pleasant 69-year-old male, up ambulating in his room, on 2 L nasal cannula, in no apparent distress. HEAD: Normocephalic. EYES: Normal reaction of pupils, equal size. NOSE: Clear with pink turbinates. THROAT: No erythema or exudates. NECK: No masses, no JVD. CHEST: No chest wall deformity. LUNGS: Equal air entry with no crackles, wheeze or rhonchi. CVS: S1 and S2 normal with no audible murmur, regular rhythm. ABDOMEN: No hepatosplenomegaly, normal bowel sounds, no guarding or rigidity. SPINE: No scoliosis or deformity SKIN: No rashes CENTRAL NERVOUS SYSTEM: No focal deficits, tone is normal in all 4 extremities. EXTREMITIES: There is no peripheral edema. No clubbing, no cyanosis. Peripheral pulses are intact. - Labs CBC & Chem 7: 08/01/24 11:22 08/01/24 11:22 Labs: Abnormal Lab Results - Last 24 Hours (Table) 08/03/24 08/03/24 08/03/24 Range/Units 12:01 17:17 22:19 POC Glucose (mg/dL) 298 H 214 H 137 H (70-110) mg/dL 08/04/24 Range/Units 06:10 POC Glucose (mg/dL) 149 H (70-110) mg/dL Assessment and Plan Assessment: Acute hypoxemic respiratory failure secondary to an acute tracheobronchitis. No evidence of pneumonia on chest x-ray. Possible underlying asthma, possible acid reflux Lifelong non-smoker Recent admission for atrial fibrillation with rapid ventricular response status post SUSY/cardioversion on 07/30/2024, discharged 07/31/2024. Remains in sinus rhythm History of coronary disease with previous stenting to the RCA, circumflex and LAD Hypertension Hyperlipidemia History of chronic diastolic congestive heart failure Carotid stenosis History of possible history of previous esophageal procedure possible dilatation versus Leonel fundoplication History of GERD Plan: The patient was seen and evaluated Medications reviewed Improved and feeling back to baseline Cleared for discharge from the pulmonary standpoint Continue Symbicort, albuterol HFA Complete a prednisone taper Follow-up in our office in 1 week This patient was seen independently by the pulmonary nurse practitioner addressing pulmonary issues I have personally seen and examined the patient, performed the documentation and the assessment and plan as written. Number of minutes spent on the visit: 24.
--- NOTE | 2024-08-04 14:12 | P.DS ---
Providers Date of admission: 08/01/24 13:41 Expected date of discharge: 08/04/24 Attending physician: Pierce Chakraborty Primary care physician: Román uGtierrez [place] [facility] Course: Chief Complaint: Short of breath cough 69-year-old patient of Dr. Gutierrez. Chronic stable medical conditions include some cognitive impairment, GERD, hyperlipidemia, hypertension, early Parkinson's versus essential tremor, , obstructive sleep apnea does not use CPAP, irritable bowel syndrome, BPH hiatal hernia. coronary artery disease with stent. Paroxysmal atrial fibrillation. Patient was just in the hospital from July 28 through July 31. Had presented with atrial fibrillation uncontrolled. Underwent SUSY followed by cardioversion. Did well. Was discharged by cardiology. Patient is to continue on Pradaxa. Patient presented with worsening short of breath. Congestive cough. Little sputum. Having chills. Short of breath wheezing. Presented to the ER. August 02: Admitted obstructive asthma and tracheobronchitis. Still some shortness of breath cough. Continue with bronchodilators steroids doxycycline. August 03: Feeling better but still has some congested cough and shortness of breath. Remains on bronchodilators steroids. Reminded to use incentive spirometry more frequently. Increase activity. Patient has been walking around the room August 04: Feeling much better. Cough congestion improved. Patient does follow with Dr. Ludwig. Will discharge on a very short course of doxycycline and prednisone taper. Also Symbicort. Questions answered. Discussion and discharge planning more than 35 minutes. Social history: lives with no smoking. Stopped drinking alcohol in 2004. Prior to that used to drink every day On examination: VITAL SIGNS: 98.5, 70, 17, 159 x 96, 92% on 2 L GENERAL APPEARANCE: BMI 28.2, sitting edge of the bed HEENT: Normal external appearance of nose and ear. Oral cavity normal EYES: Pupils equal. Conjunctiva normal. NECK: JVD not raised. Mass not palpable. RESPIRATORY: Respiratory effort increased, diminished breath sounds, expiratory wheezing. Expiratory crackles..: Slight improvement CARDIOVASCULAR: First and second sounds normal. No edema. ABDOMEN: Soft. Liver and spleen not palpable. No tenderness. No mass palpable. PSYCHIATRY: Alert and oriented x3. Mood and affect a bit anxious NEUROLOGICAL: Cranial nerves grossly intact per sensation grossly intact LYMPHATICS: No lymph nodes were palpable neck and axilla INVESTIGATIONS, reviewed in the clinical context: August 01, 2024: White count 6 hemoglobin 12.1 platelets 195 sodium 138 potassium 3.8 creatinine 0.75 Troponin I less than 0.012 proBNP 1340 Influenza type A, type B, RSV, COVID-19: Not detected EKG tracing personally reviewed by me-normal sinus rhythm. Chest x-ray film personally reviewed by me-some cardiomegaly. Assessment and plan: -Acute severe obstructive asthma exacerbation, in a non-smoker, precipitated by tracheobronchitis: Much better DuoNeb every 4. IV Solu-Medrol. Nebulized Pulmicort. Doxycycline 100 mg twice daily. Mucinex Discharge on: Prednisone taper. Doxycycline for [address] Ludwig -Chronic hypoxic respiratory failure Patient does use 1 to 2 L oxygen at home more as needed. -Paroxysmal atrial fibrillation: Sinus rhythm Toprol-XL. Pradaxa. Amiodarone July 30 patient underwent SUSY followed by DC cardioversion. -Coronary artery disease with prior history of stent Aspirin, Toprol-XL -GERD Tums when necessary -Hyperlipidemia Lipitor -Essential hypertension Amlodipine. Cozaar. -BPH -Obstructive sleep apnea does not use CPAP -Early Parkinson disorder with tremors Mirapex, primidone -Irritable bowel syndrome -Bipolar depression Zoloft, -Bladder outflow obstruction Flomax -Full code Disposition: Home Past Medical History Past Medical History: Coronary Artery Disease (CAD), Chest Pain / Angina, Heart Failure, Dementia, GERD/Reflux, Hyperlipidemia, Hypertension, Myocardial Infarction (NM), Neurologic Disorder, Pneumonia, Prostate Disorder, Renal Disease, Skin Disorder, Sleep Apnea/CPAP/BIPAP Additional Past Medical History / Comment(s): early parkinson's with essential tremors, "lewy body dementia" R nephrolithiasis with surgery, EDITH with no CPAP, Irritable Bowel Syndrome diarrhea off and on, pneumonia/bronchitis, BPH, blood in stool-EGD/colonoscopy were normal, past hiatal hernia(sx), past falls., kidney failure, Last Myocardial Infarction Date:: 06/09/13 History of Any Multi-Drug Resistant Organisms: None Reported Past Surgical History: Back Surgery, Heart Catheterization, Heart Catheterization With Stent, Hernia Repair Additional Past Surgical History / Comment(s): 05/2013 stent to LAD and then a cardiac cath which showed stent patent, Recent R kidney stone removal, 03/19/15 Laparoscopic Elizabeth fundlaplication. SKIN GRAFTS CHEST & BACK FROM BASSETT AT 13 YRS OLD., COLONOSCOPY. EGD, L lazy eye surgery as toddler. c3 c4 fusion, c4 c5 fusion. Past Anesthesia/Blood Transfusion Reactions: No Reported Reaction Additional Past Anesthesia/Blood Transfusion Reaction / Comment(s): Pt received blood in 1967 without reaction. Date of Last Stent Placement:: 12/2017 Past Psychological History: Bipolar, Depression Smoking Status: Never smoker Past Alcohol Use History: None Reported Past Drug Use History: None Reported Plan - Discharge Summary Discharge Rx Participant: No New Discharge Prescriptions: New guaiFENesin [Mucinex] 600 mg PO QID #30 tab Pantoprazole [Protonix] 40 mg PO AC-BID #60 tab Budesonide-Formot 160-4.5 Mcg [Symbicort 160-4.5 Mcg Inhaler] 2 puff INHALATION RT-BID #1 each Albuterol Sulfate [Albuterol Sulfate Hfa] 1 puff PO Q4-6H #8.5 gm predniSONE 10 mg PO DAILY #30 tab Doxycycline [Vibramycin] 100 mg PO BID #4 cap Continue Primidone [Mysoline] 100 mg PO DAILY Memantine [Namenda] 10 mg PO BID Pramipexole Di-HCl [Mirapex] 1.5 mg PO HS Pregabalin [Lyrica] 100 mg PO BID Sertraline [Zoloft] 200 mg PO DAILY Primidone [Mysoline] 150 mg PO HS Tamsulosin [Flomax] 0.8 mg PO DAILY Atorvastatin [Lipitor] 40 mg PO HS #30 tab tiZANidine [Zanaflex] 2 mg PO TID PRN #60 tab PRN Reason: Muscle Spasm Aspirin 81 mg PO DAILY tab HYDROcodone/APAP 5-325MG [Mantua 5-325] 1 tab PO Q6H PRN PRN Reason: Pain Metoprolol Succinate (ER) [Toprol XL] 25 mg PO DAILY Losartan Potassium [Cozaar] 100 mg PO HS #30 tab amLODIPine [Norvasc] 5 mg PO DAILY #30 tab Dabigatran [Pradaxa] 150 mg PO BID #180 capsule Amiodarone [Cordarone] See Taper PO DAILY Discharge Medication List Primidone [Mysoline] 100 mg PO DAILY 12/20/17 [History] Memantine [Namenda] 10 mg PO BID 02/17/20 [History] Pramipexole Di-HCl [Mirapex] 1.5 mg PO HS 02/17/20 [History] Pregabalin [Lyrica] 100 mg PO BID 03/10/21 [History] Sertraline [Zoloft] 200 mg PO DAILY 08/18/21 [History] Aspirin 81 mg PO DAILY tab 11/25/22 [Rx] HYDROcodone/APAP 5-325MG [Mantua 5-325] 1 tab PO Q6H PRN 02/27/23 [History] Metoprolol Succinate (ER) [Toprol XL] 25 mg PO DAILY 02/17/24 [History] Primidone [Mysoline] 150 mg PO HS 02/17/24 [History] Tamsulosin [Flomax] 0.8 mg PO DAILY 05/19/24 [History] Atorvastatin [Lipitor] 40 mg PO HS #30 tab 05/24/24 [Rx] Losartan Potassium [Cozaar] 100 mg PO HS #30 tab 05/24/24 [Rx] amLODIPine [Norvasc] 5 mg PO DAILY #30 tab 05/24/24 [Rx] tiZANidine [Zanaflex] 2 mg PO TID PRN #60 tab 05/24/24 [Rx] Dabigatran [Pradaxa] 150 mg PO BID #180 capsule 07/31/24 [Rx] Amiodarone [Cordarone] See Taper PO DAILY 08/01/24 [History] Albuterol Sulfate [Albuterol Sulfate Hfa] 1 puff PO Q4-6H #8.5 gm 08/04/24 [Rx] Budesonide-Formot 160-4.5 Mcg [Symbicort 160-4.5 Mcg Inhaler] 2 puff INHALATION RT-BID #1 each 08/04/24 [Rx] Doxycycline [Vibramycin] 100 mg PO BID #4 cap 08/04/24 [Rx] Pantoprazole [Protonix] 40 mg PO AC-BID #60 tab 08/04/24 [Rx] guaiFENesin [Mucinex] 600 mg PO QID #30 tab 08/04/24 [Rx] predniSONE 10 mg PO DAILY #30 tab 08/04/24 [Rx] Follow up Appointment(s)/Referral(s): Román Gutierrez DO [Primary Care Provider] - 1-2 days Chioma Ludwig MD [STAFF PHYSICIAN] - 10 Days
== END 2024-08-04 11:40 | disposition home or self-care (01) ==
LOC: EC 10:42 → 6NMEDSUR 13:40 → OBSVTOIN 13:41 → INTOOBSV 13:41 → 6NMEDSUR 21:15
PROVIDERS: ADMIT Hospitalist; ATTEND Hospitalist
DX: J45.901 Unspecified asthma with (acute) exacerbation (principal); J96.21 Acute and chronic respiratory failure with hypoxia; J20.9 Acute bronchitis, unspecified; I48.0 Paroxysmal atrial fibrillation; I25.10 Atherosclerotic heart disease of native coronary artery without angina pectoris; I11.0 Hypertensive heart disease with heart failure; I50.9 Heart failure, unspecified; K21.9 Gastro-esophageal reflux disease without esophagitis; E78.5 Hyperlipidemia, unspecified; G20.A1 Parkinson's disease without dyskinesia, without mention of fluctuations; G31.83 Neurocognitive disorder with Lewy bodies; F02.80 Dementia in other diseases classified elsewhere, unspecified severity, without behavioral disturbance, psychotic disturbance, mood disturbance, and anxiety; N40.1 Benign prostatic hyperplasia with lower urinary tract symptoms; N13.8 Other obstructive and reflux uropathy; F31.9 Bipolar disorder, unspecified; G47.33 Obstructive sleep apnea (adult) (pediatric); K58.9 Irritable bowel syndrome, unspecified; I65.29 Occlusion and stenosis of unspecified carotid artery; I25.2 Old myocardial infarction; Z95.5 Presence of coronary angioplasty implant and graft; Z79.02 Long term (current) use of antithrombotics/antiplatelets; Z79.82 Long term (current) use of aspirin; Z79.899 Other long term (current) drug therapy
CPT/HCPCS: 96376 ×5; 96372 ×4; 96374 ×2; 99285; 51798; 36415; 94640 ×6; 93005; 85379; 83880; 80053; 83605; 83735; 84484; 85025; 85610; 85730; 81003; 87636; 71046; G0378 ×4; J1650 ×4; J2919 ×4

== ENCOUNTER → 2024-10-03 | Outpatient (CLI) | payer OTHER ==
--- NOTE | 2024-10-03 16:50 | XR ---
EXAMINATION TYPE: XR cervical spine limited DATE OF EXAM: 10/03/2024 4:27 PM COMPARISON: None. CLINICAL INDICATION: Male, 69 years old with history of Z98.1, TECHNIQUE: 3 view(s) obtained. FINDINGS: Note is made of bilateral carotid artery bifurcation calcifications. There is an anterior cervical fusion with disc spacers present at C3-4 C4-5. Anterior vertebral body spurring is present C5-6 with loss of disc height at this level. Posterior spinal lamellar line is in tact. Tip of the odontoid is limited with overlying occiput. IMPRESSION: 1. No acute osseous abnormality post anterior cervical fusion 2 degenerative disc change C5-6 [facility], , 10/03/2024 4:48 PM
== END | disposition home or self-care (01) ==
LOC: RADXRMAIN 16:13
PROVIDERS: ATTEND Neurological Surgery
DX: I65.23 Occlusion and stenosis of bilateral carotid arteries (principal); Z98.1 Arthrodesis status
CPT/HCPCS: 72040

== ENCOUNTER 2024-11-04 04:39 | Observation (INO) | payer MEDICARE ==
[2024-11-04] MEDS: ASPIRIN 81 MG PO STA (05:15)
[2024-11-04 05:19] LABS: Anisocytosis Slight; Basophils # (A) 0.1 k/uL (0-0.2); Basophils % (A) 1 %; Eosinophils # (A) 0.4 k/uL (0-0.7); Eosinophils % (A) 5 %; HCT 43.2 % (39.0-53.0); HGB 14.4 gm/dL (13.0-17.5); Lymphocytes # (A) 1.9 k/uL (1.0-4.8); Lymphocytes % (A) 25 %; MCH 29.9 pg (25.0-35.0); MCHC 33.4 g/dL (31.0-37.0); MCV 89.7 fL (80.0-100.0); Mean Platelet Volume 7.3; Monocytes # (A) 0.6 k/uL (0-1.0); Monocytes % (A) 8 %; Neutrophils # (A) 4.6 k/uL (1.3-7.7); Neutrophils % (A) 60 %; Platelet Count 250 k/uL (150-450); RBC 4.82 m/uL (4.30-5.90); RDW 16.1 % (11.5-15.5); WBC 7.7 k/uL (3.8-10.6)
--- NOTE | 2024-11-04 05:23 | XR ---
EXAMINATION TYPE: XR chest 2V DATE OF EXAM: 11/04/2024 CLINICAL HISTORY: Chest pain. Increased shortness of breath TECHNIQUE: Frontal and lateral views of the chest are obtained. COMPARISON: Chest x-ray August 01, 2024 FINDINGS: There is no focal air space opacity, pleural effusion, or pneumothorax seen. The cardiac silhouette size is stable and mildly enlarged with atherosclerotic change in the aortic knob. The o sseous structures are intact. IMPRESSION: Mild cardiomegaly without acute pulmonary process. [facility], , 11/04/2024 5:21 AM
[2024-11-04 05:51] LABS: ALT 29 U/L (4-49); AST 27 U/L (17-59); African American GFR (CKD) >90 (>60 ml/min/1.73 sqM); Alkaline Phosphatase 68 U/L (38-126); Anion Gap 10 mmol/L; Blood Urea Nitrogen 14 mg/dL (9-20); Calcium 8.7 mg/dL (8.4-10.2); Carbon Dioxide 23 mmol/L (22-30); Chloride 107 mmol/L (98-107); Glucose 125 mg/dL (74-99); Non-African American GFR(CKD) >90 (>60 ml/min/1.73 sqM); Sodium 140 mmol/L (137-145); Total Bilirubin 0.5 mg/dL (0.2-1.3); Total Protein 6.6 g/dL (6.3-8.2)
[2024-11-04 05:55] LABS: Partial Thromboplastin Time 24.3 sec (22.0-30.0); Prothrombin Time 11.2 sec (10.0-12.5)
[2024-11-04 05:59] LABS: NT-Pro-B-Type Natriuretic Pept 2420 pg/mL
[2024-11-04] MEDS: NITROGLYCERIN SL TABS 0.4 MG TAB SUBLINGUAL STA (06:22)
[2024-11-04] MEDS ORDERED: NITROGLYCERIN SL TABS 0.4 MG TAB SUBLINGUAL PRN ×2 (06:43→08:36)
[2024-11-04] MEDS ORDERED: ONDANSETRON 4 MG/2 ML VIAL IVP PRN (08:34)
[2024-11-04] MEDS ORDERED: CALCIUM CARBONATE 500 MG CHEWABLE PO PRN (08:34)
[2024-11-04] MEDS ORDERED: traMADol 50 MG TAB PO PRN (08:34)
[2024-11-04] MEDS ORDERED: MORPHINE SULFATE 4 MG/ML SYRINGE IV PRN (08:34)
[2024-11-04] MEDS ORDERED: NALOXONE 0.4 MG/ML 1 ML VIAL IV PRN (08:34)
[2024-11-04] MEDS ORDERED: ACETAMINOPHEN TAB 325 MG TAB PO PRN (08:34)
[2024-11-04] MEDS ORDERED: MAG HYDROX/AL HYDROX/SIMETH 30 ML CUP PO PRN (08:34)
--- NOTE | 2024-11-04 08:39 | ED ---
Chest Pain HPI - General Chief Complaint: Chest Pain Stated Complaint: SOB Time Seen by Provider: 11/04/24 04:49 Source: patient Mode of arrival: wheelchair Limitations: no limitations - History of Present Illness Initial Comments: Patient is a pleasant 69 y/ o male hx COPD, CHF, CAD, atrial fibrillation, HTN, HLD presenting today for shortness of breath and chest pressure. Pt states over the last few days he has had gradually worsening shortness of breath and this evening felt himself go into atrial fibrillation and noted mild left sided chest pressure. 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 Denies cough, hemoptysis, LE swelling, fevers, chills, dizziness, abdominal pain, nausea, vomiting, black or bloody stools. Endorses 2-3 days loose stools, 3-4 episodes a day. Sees Dr. Hernandez with cardiology. Notes that Dr. Hernandez said he was considering doing a cardiac cath this November for the pt. Pt denies any adjustments to or missed medications. - Related Data Home Medications Medication Instructions Recorded Confirmed Primidone [Mysoline] 100 mg PO DAILY 12/20/17 11/04/24 Memantine [Namenda] 10 mg PO BID 02/17/20 11/04/24 Pramipexole Di-HCl [Mirapex] 1.5 mg PO HS 02/17/20 11/04/24 Pregabalin [Lyrica] 100 mg PO BID 03/10/21 11/04/24 Sertraline [Zoloft] 100 mg PO BID 08/18/21 11/04/24 Primidone [Mysoline] 150 mg PO HS 02/17/24 11/04/24 Tamsulosin [Flomax] 0.8 mg PO DAILY 05/19/24 11/04/24 Atorvastatin [Lipitor] 80 mg PO HS 11/04/24 11/04/24 Metoprolol Succinate [Toprol XL] 50 mg PO DAILY 11/04/24 11/04/24 Nitroglycerin Sl Tabs [Nitrostat] 0.4 mg SUBLINGUAL Q5M PRN 11/04/24 11/04/24 Previous Rx's Medication Instructions Recorded amLODIPine [Norvasc] 5 mg PO DAILY #30 tab 05/24/24 Amiodarone [Cordarone] 200 mg PO DAILY #90 tab 11/05/24 Aspirin 81 mg PO DAILY #90 tab 11/05/24 Dabigatran [Pradaxa] 150 mg PO BID #60 cap 11/05/24 Furosemide [Lasix] 40 mg PO BID@0900,1600 #60 tab 11/05/24 Allergies Allergy/AdvReac Type Severity Reaction Status Date / Time No Known Allergies Allergy Verified 11/04/24 09:36 Review of Systems ROS Statement: Those systems with pertinent positive or pertinent negative responses have been documented in the HPI. ROS Other: All systems not noted in ROS Statement are negative. EKG Findings - EKG Comments: EKG Findings:: Atrial fibrillation with RVR, rate 137 bpm, QRS duration 96 ms, QT/QTc 308/388 seconds, left axis deviation, T wave enlargement V2, T wave inversion in lead III, no STEMI, no ST elevations or depressions, Compared to EKG performed on 07/29/2024, with exception of tachycardia on today's EKG no significant changes from prior no new ST elevations or depressions compared to prior Past Medical History Past Medical History: Coronary Artery Disease (CAD), Chest Pain / Angina, Heart Failure, Dementia, GERD/Reflux, Hyperlipidemia, Hypertension, Myocardial Infarction (MN), Neurologic Disorder, Pneumonia, Prostate Disorder, Renal Disease, Skin Disorder, Sleep Apnea/CPAP/BIPAP Additional Past Medical History / Comment(s): early parkinson's with essential tremors, "lewy body dementia" R nephrolithiasis with surgery, EDITH with no CPAP, Irritable Bowel Syndrome diarrhea off and on, pneumonia/bronchitis, BPH, blood in stool-EGD/colonoscopy were normal, past hiatal hernia(sx), past falls., kidney failure, Last Myocardial Infarction Date:: 06/09/13 History of Any Multi-Drug Resistant Organisms: None Reported Past Surgical History: Back Surgery, Heart Catheterization, Heart Catheterization With Stent, Hernia Repair Additional Past Surgical History / Comment(s): 05/2013 stent to LAD and then a cardiac cath which showed stent patent, Recent R kidney stone removal, 03/19/15 Laparoscopic Elizabeth fundlaplication. SKIN GRAFTS CHEST & BACK FROM BASSETT AT 13 YRS OLD., COLONOSCOPY. EGD, L lazy eye surgery as toddler. c3 c4 fusion, c4 c5 fusion. Past Anesthesia/Blood Transfusion Reactions: No Reported Reaction Additional Past Anesthesia/Blood Transfusion Reaction / Comment(s): Pt received blood in 1967 without reaction. Date of Last Stent Placement:: 12/2017 Past Psychological History: Bipolar, Depression Smoking Status: Never smoker Past Alcohol Use History: None Reported Past Drug Use History: None Reported - Past Family History Mother Family Medical History: Liver Disease Additional Family Medical History / Comment(s): Mother was an alcoholic. She of cirrhosis of the liver at age 60yrs. Father Family Medical History: Cancer, Coronary Artery Disease (CAD), Myocardial Infarction (MN) Additional Family Medical History / Comment(s): SKIN CA. Father of a MN at age 65 yrs. Brother(s) Family Medical History: Cancer Additional Family Medical History / Comment(s): LEUKEMIA, LYMPH NODE CA AND MULTIPLE MYELOMA. General Exam - General Exam Comments Initial Comments: PE: CONSTITUTIONAL: No apparent distress, chronically ill-appearing, nontoxic SKIN: Warm, dry, no jaundice, hives or petechiae EYES: Pupils are equally round, extraocular movements intact without nystagmus, clear conjunctiva, non-icteric sclera HENT: Normocephalic, atraumatic, moist mucus membranes, oropharynx clear without exudates NECK: , Full range of motion, normal appearance PULMONARY: Slight decreased breath sounds in the lung bases, without wheezes, rhonchi, or rales, normal excursion, no accessory muscle use and no stridor CARDIOVASCULAR: Tachycardia, irregularly irregular rate and rhythm normal S1 and S2. No appreciated murmurs, rubs or gallops, though limited by heart rate. Strong radial pulses with intact distal perfusion. No lower extremity edema GASTROINTESTINAL: Soft, active bowel sounds throughout, non-tender, non- distended, no palpable masses, no rebound or guarding. No hepatosplenomegaly MUSCULOSKELETAL: Extremities have no gross deformity, no edema, redness, or swelling. No calf swelling NEUROLOGIC:_a/o x 3, GCS 15, normal mentation and speech. Moves all extremities x 4 without motor or sensory deficit PSYCHIATRIC:_normal mood and affect, thought process is clear and linear Limitations: no limitations Course Vital Signs 11/04/24 11/04/24 11/04/24 04:44 04:52 07:30 Temperature 97.5 F L 97.7 F Pulse Rate 60 151 H 86 Pulse Rate [ Computing Consultant ] Respiratory 18 18 Rate Blood Pressure 101/71 109/75 Blood Pressure [Right Arm] O2 Sat by Pulse 98 95 Oximetry 11/04/24 11/04/24 11/04/24 09:26 09:39 11:50 Temperature Pulse Rate 79 90 102 H Pulse Rate [ Computing Consultant ] Respiratory 19 Rate Blood Pressure 100/80 Blood Pressure [Right Arm] O2 Sat by Pulse 93 L Oximetry 11/04/24 11/04/24 11/04/24 12:13 12:22 14:33 Temperature Pulse Rate 93 105 H 112 H Pulse Rate [ Computing Consultant ] Respiratory 18 Rate Blood Pressure 122/83 Blood Pressure [Right Arm] O2 Sat by Pulse 94 L Oximetry 11/04/24 11/04/24 11/04/24 15:46 16:00 16:28 Temperature Pulse Rate 93 117 H 92 Pulse Rate [ Computing Consultant ] Respiratory 20 19 Rate Blood Pressure 102/77 99/79 Blood Pressure [Right Arm] O2 Sat by Pulse 95 94 L Oximetry 11/04/24 11/04/24 11/04/24 16:38 16:43 18:47 Temperature 98.6 F Pulse Rate 96 112 H Pulse Rate [ Computing Consultant ] Respiratory 20 Rate Blood Pressure 105/89 Blood Pressure [Right Arm] O2 Sat by Pulse 94 L 95 Oximetry 11/04/24 11/04/24 11/04/24 20:00 20:26 20:36 Temperature 97.8 F Pulse Rate 104 H 114 H Pulse Rate [ 98 Computing Consultant ] Respiratory 22 Rate Blood Pressure Blood Pressure 124/100 [Right Arm] O2 Sat by Pulse 93 L Oximetry 11/04/24 21:29 Temperature 97.5 F L Pulse Rate Pulse Rate [ 70 Computing Consultant ] Respiratory 20 Rate Blood Pressure Blood Pressure 134/87 [Right Arm] O2 Sat by Pulse 93 L Oximetry Chest Pain MDM - MDM Was pt. sent in by a medical professional or institution (, PA, REPAIRER FINISHED METAL, urgent care, hospital, or fpc...) When possible be specific @ -[No] Did you speak to anyone other than the patient for history (EMS, parent, family, police, friend...)? What history was obtained from this source @ -[No] Did you review nursing and triage notes (agree or disagree)? Why? @ -[I reviewed and agree with nursing and triage notes] Were old charts reviewed (outside hosp., previous admission, EMS record, old EKG, old radiological studies, urgent care reports/EKG's, fpc records)? Report findings @ -Medical records reviewed-patient previously here in July 2024 for sh ortness of breath and admitted with COPD exacerbation, chest x-ray that time showed no acute process Differential Diagnosis (chest pain, altered mental status, abdominal pain women, abdominal pain men, vaginal bleeding, weakness, fever, dyspnea, syncope, headache, dizziness, GI bleed, back pain, seizure, CVA, palpatations, mental health, musculoskeletal)? @Differential Dyspnea: Coronary syndrome, arrhythmia, tamponade, asthma, COPD, pneumonia, pneumothorax, pulmonary effusion, anemia, neuromuscular, this is not meant to be an all- inclusive list. EKG interpreted by me (3pts min.). @ -[As above] X-rays interpreted by me (1pt min.). @No cardiomegaly, consolidations or pleural effusions CT interpreted by me (1pt min.). @ -[None done] U/S interpreted by me (1pt. min.). @ -[None done] What testing was considered but not performed or refused? (CT, X-rays, U/S, labs)? Why? @ -[None] What meds were considered but not given or refused? Why? @Cardizem was initially ordered however patient's heart rate spontaneously improved without Cardizem Did you discuss the management of the patient with other professionals (professionals i.e. , PA, REPAIRER [employer], lab, RT, psych nurse, social psychologist, optomechanical technician, te acher, technology officer, pillowcase turner)? Give summary @ -[No] Was smoking cessation discussed for >3mins.? @ -[No] Was critical care preformed (if so, how long)? @Yes, 35 minutes, A-fib with RVR Were there social determinants of health that impacted care today? How? (Homelessness, low income, unemployed, alcoholism, drug addiction, transportation, low edu. Level, literacy, decrease access to med. care, long term, rehab)? @ -[No] Was there de-escalation of care discussed even if they declined (Discuss DNR or withdrawal of care, Hospice)? @ -[No] What co-morbidities impacted this encounter? (DM, HTN, Smoking, COPD, CAD, Cancer, CVA, ARF, Chemo, Hep., AIDS, mental health diagnosis, sleep apnea, morbid obesity)? @HTN, HLD, atrial fibrillation, CAD, COPD, CHF Was patient admitted / discharged? Hospital course, mention meds given and route, prescriptions, significant lab abnormalities, going to OR and other pertinent info. @ Admission- This is a pleasant 69 yo gentleman presenting today for shortness of breath, worse with exertion, left sided chest pressure and feeling like he has gone into a fib. Pt in a fib with RvR on arrival, BP stable. Patient initially seen and assessed in triage given shortage of beds in the emergency department due to ED boarding. On initial assessment pt chronicallyill appearing but nontoxic, in NAD, Slight decreased breath sounds in bilateral lung bases, tachycardia and irregularly irregular rhythm on cardiac exam, no lower extremity edema noted.. Plan for Cardizem bolus, sublingual nitroglycerin, chewable aspirin, chest x-ray, EKG, cardiac labs. On reassessment without Cardizem bolus patient's heart rate controlled spontaneously. Patient states chest pressure slightly improved but was still present and mild. Shortness of breath is improved. Additional SL nitro ordered. Labs and imaging reviewed. BNP elevated at approximately 2400, otherwise grossly within normal limits. Remaining abnormal values not concerning for acute pathology related to presenting complaint. W/ chest pain that occurred while patient tachycardic, and exertional dyspnea, symptoms consistent with stable angina, CHF exacerbation. On reassessment pt's chest pain resolved, no complaints currently. Of note, patient did stand up while I was in room with him and he did become short of breath with ambulation. With elevated BNP and exertional dyspnea, ordered 40 mg IV lasix. Discussed with pt plan for admission. Pt agreeable w/ plan. Case discussed with Dr. Chakraborty, kindly accepts patient for admission. Undiagnosed new problem with uncertain prognosis? @ -[No] Drug Therapy requiring intensive monitoring for toxicity (Heparin, Nitro, Insulin, Cardizem)? @ -[No] Were any procedures done? @ -[No] Diagnosis/symptom? @Stable angina, CHF exacerbation, A-fib with RVR Acute, or Chronic, or Acute on Chronic? @ Acute Uncomplicated (without systemic symptoms) or Complicated (systemic symptoms)? Complicated Side effects of treatment? @ -[No] Exacerbation, Progression, or Severe Exacerbation? @ -[No] Poses a threat to life or bodily function? How? (Chest pain, [place], [place], pneumonia, PE, COPD, DKA, ARF, appy, cholecystitis, CVA, Diverticulitis, Homicidal, Suicidal, threat to staff... and all critical care pts) Yes Disposition Clinical Impression: Stable angina Disposition: ADMITTED IP TO THIS HOSP
[2024-11-04] MEDS: SYMBICORT 160-4.5 MCG INHALER INHALATION SCH (09:25)
[2024-11-04] MEDS: ALBUTEROL NEBULIZED 2.5 MG/3 ML INHALATION SCH (09:25)
[2024-11-04] MEDS: FUROSEMIDE 10 MG/ML 4 ML VIAL IV STA (10:06)
[2024-11-04] MEDS: METOPROLOL SUCCINATE (ER) 25 MG TAB.ER.24H PO SCH (10:07)
[2024-11-04] MEDS: DABIGATRAN 150 MG CAP PO SCH (10:07)
--- NOTE | 2024-11-04 11:19 | P.CRDCN ---
History of Present Illness History of present illness: HISTORY OF PRESENT ILLNESS: This is a 69-year-old male with a past medical history significant for atrial fibrillation, coronary artery disease with previous multivessel stenting, hypertension, hyperlipidemia, heart failure, and carotid atherosclerosis. Patient follows in the office with Dr. Hernandez. We have been asked to see the patient in consultation for chest pain. Patient examined at the bedside in the emergency room. Patient presented to the hospital for chief complaint of short ness of breath. Patient states he was also having palpitations. He denied having any chest pain or pressure. The patient was found to be in A-fib with RVR. At the time of examination he remains in atrial fibrillation with a heart rate around 115. It is noted that the patient underwent cardioversion in July [address] Hernandez with conversion to sinus mechanism. The patient states he believes he has been in sinus mechanism since that time. The patient states he has been compliant with all of his medications. However for unknown reason, he states his Pradaxa was changed to once a day dosing recently. DIAGNOSTICS: - EKG reveals A-fib with RVR - Chest xray mild cardiomegaly without acute pulmonary process - Laboratory data: WBC 7.7. Hemoglobin 14.4. Platelet count 250. Sodium 140. Potassium 4.0. BUN 14. Creatinine 0.80. Magnesium 2.0. Troponin negative x 2. proBNP 2420. - Current home cardiac medications include Lasix 40 mg daily, metoprolol succinate 50 mg daily, amlodipine 5 mg daily, Lipitor 80 mg at night - Most recent echocardiogram obtained in May 2024 revealed ejection fraction 55 to 60%, mild TR, mild AR, mild MR - Cardiac catheterization history: July 2019 revealing patent stents within the LAD, circumflex, and RCA. Very distal left anterior descending coronary artery has a significant stenosis, but this is a very small caliber vessel and the patient was advised medical therapy. REVIEW OF SYSTEMS: At the time of my exam: CONSTITUTIONAL: Denies fever or chills. HEENT: Denies blurred vision, vision changes, or eye pain. Denies hemoptysis CARDIOVASCULAR: Denies chest pain. Denies orthopnea. Denies PND. Denies palpitations RESPIRATORY: Denies shortness of breath. GASTROINTESTINAL: Denies abdominal pain. Denies nausea or vomiting. HEMATOLOGIC: Denies bleeding disorders. GENITOURINARY: Denies any blood in urine. SKIN: Denies pruitis. Denies rash. PHYSICAL EXAM: VITAL SIGNS: Reviewed. GENERAL: Well-developed in no acute distress. HEENT: Head is normocephalic. Pupils are equal, round. Sclerae anicteric. Mucous membranes of the mouth are moist. Neck supple. No JVD or thyromegaly LUNGS: Respirations even and unlabored. Lungs essentially clear to auscultation bilaterally, diminished. HEART: Tachycardic. Irregular rate and rhythm. S1 and S2 heard. ABDOMEN: Soft. Nondistended. Nontender. EXTREMITIES: Normal range of motion. No clubbing or cyanosis. Peripheral pulses intact. No lower extremity edema NEUROLOGIC: Awake and alert. Oriented x 3. ASSESSMENT: Palpitations Shortness of breath Paroxysmal atrial fibrillation with RVR Recent cardioversion, July 2024 Acute on chronic heart failure with preserved EF Coronary artery disease with previous multivessel stenting Hypertension Hyperlipidemia Carotid atherosclerosis PLAN: No need to repeat echocardiogram as this was performed in May 2024 Resume home cardiac medications Increase Pradaxa to twice a day dosing as patient states he was only taking this once a day Increase metoprolol to 50 mg daily Resume amiodarone. Patient dose was decreased to 100 mg daily when he saw Mary in the office on 11/01/2024. Increase dosage to 200 mg daily Patient received one-time dose of IV Lasix. Continue oral Lasix. Increase dosage to 40 mg twice a day Continue telemetry monitoring N.p.o. at midnight Possible SUSY and cardioversion tomorrow if patient remains in A-fib with RVR Further recommendations pending patient course Nurse practitioner note has been reviewed by physician. Signing provider agrees with the documented findings, assessment, and plan of care documented by GERM DRIER as a scribe. Past Medical History Past Medical History: Coronary Artery Disease (CAD), Chest Pain / Angina, Heart Failure, Dementia, GERD/Reflux, Hyperlipidemia, Hypertension, Myocardial Infarction (ME), Neurologic Disorder, Pneumonia, Prostate Disorder, Renal Disease, Skin Disorder, Sleep Apnea/CPAP/BIPAP Additional Past Medical History / Comment(s): early parkinson's with essential tremors, "lewy body dementia" R nephrolithiasis with surgery, EDITH with no CPAP, Irritable Bowel Syndrome diarrhea off and on, pneumonia/bronchitis, BPH, blood in stool-EGD/colonoscopy were normal, past hiatal hernia(sx), past falls., kidney failure, Last Myocardial Infarction Date:: 06/09/13 History of Any Multi-Drug Resistant Organisms: None Reported Past Surgical History: Back Surgery, Heart Catheterization, Heart Catheterization With Stent, Hernia Repair Additional Past Surgical History / Comment(s): 05/2013 stent to LAD and then a cardiac cath which showed stent patent, Recent R kidney stone removal, 03/19/15 Laparoscopic Elizabeth fundlaplication. SKIN GRAFTS CHEST & BACK FROM BASSETT AT 13 YRS OLD., COLONOSCOPY. EGD, L lazy eye surgery as toddler. c3 c4 fusion, c4 c5 fusion. Past Anesthesia/Blood Transfusion Reactions: No Reported Reaction Additional Past Anesthesia/Blood Transfusion Reaction / Comment(s): Pt received blood in 1967 without reaction. Date of Last Stent Placement:: 12/2017 Past Psychological History: Bipolar, Depression Smoking Status: Never smoker Past Alcohol Use History: None Reported Past Drug Use History: None Reported - Past Family History Mother Family Medical History: Liver Disease Additional Family Medical History / Comment(s): Mother was an alcoholic. She of cirrhosis of the liver at age 60yrs. Father Family Medical History: Cancer, Coronary Artery Disease (CAD), Myocardial Infarction (ME) Additional Family Medical History / Comment(s): SKIN CA. Father of a ME at age 65 yrs. Brother(s) Family Medical History: Cancer Additional Family Medical History / Comment(s): LEUKEMIA, LYMPH NODE CA AND MULTIPLE MYELOMA. Medications and Allergies Home Medications Medication Instructions Recorded Confirmed Type Primidone [Mysoline] 100 mg PO DAILY 12/20/17 11/04/24 History Memantine [Namenda] 10 mg PO BID 02/17/20 11/04/24 History Pramipexole Di-HCl [Mirapex] 1.5 mg PO HS 02/17/20 11/04/24 History Pregabalin [Lyrica] 100 mg PO BID 03/10/21 11/04/24 History Sertraline [Zoloft] 100 mg PO BID 08/18/21 11/04/24 History Primidone [Mysoline] 150 mg PO HS 02/17/24 11/04/24 History Tamsulosin [Flomax] 0.8 mg PO DAILY 05/19/24 11/04/24 History amLODIPine [Norvasc] 5 mg PO DAILY #30 tab 05/24/24 11/04/24 Rx Atorvastatin [Lipitor] 80 mg PO HS 11/04/24 11/04/24 History Dabigatran [Pradaxa] 150 mg PO DAILY 11/04/24 11/04/24 History Furosemide [Lasix] 40 mg PO DAILY 11/04/24 11/04/24 History Metoprolol Succinate [Toprol XL] 50 mg PO DAILY 11/04/24 11/04/24 History Nitroglycerin Sl Tabs [Nitrostat] 0.4 mg SUBLINGUAL Q5M PRN 11/04/24 11/04/24 History Allergies Allergy/AdvReac Type Severity Reaction Status Date / Time No Known Allergies Allergy Verified 11/04/24 09:36 Physical Exam Vitals: Vital Signs Temp Pulse Resp BP Pulse Ox 11/04/24 09:39 90 11/04/24 09:26 79 11/04/24 07:30 97.7 F 86 18 109/75 95 11/04/24 04:52 151 H 11/04/24 04:44 97.5 F L 60 18 101/71 98 Intake and Output 11/03/24 11/04/24 11/04/24 22:59 06:59 14:59 Other: Weight 104.326 kg Results 11/04/24 04:53 11/04/24 04:53 Cardiac Enzymes 11/04/24 11/04/24 11/04/24 Range/Units 04:53 04:53 09:00 AST 27 (17-59) U/L Troponin I <0.012 <0.012 (0.000-0.034) ng/mL Coagulation 11/04/24 Range/Units 04:53 PT 11.2 (10.0-12.5) sec APTT 24.3 (22.0-30.0) sec CBC 11/04/24 Range/Units 04:53 WBC 7.7 (3.8-10.6) k/uL RBC 4.82 (4.30-5.90) m/uL Hgb 14.4 (13.0-17.5) gm/dL Hct 43.2 (39.0-53.0) % Plt Count 250 (150-450) k/uL Comprehensive Metabolic Panel 11/04/24 Range/Units 04:53 Sodium 140 (137-145) mmol/L Potassium 4.0 (3.5-5.1) mmol/L Chloride 107 (98-107) mmol/L Carbon Dioxide 23 (22-30) mmol/L BUN 14 (9-20) mg/dL Creatinine 0.80 (0.66-1.25) mg/dL Glucose 125 H (74-99) mg/dL Calcium 8.7 (8.4-10.2) mg/dL AST 27 (17-59) U/L ALT 29 (4-49) U/L Alkaline Phosphatase 68 (38-126) U/L Total Protein 6.6 (6.3-8.2) g/dL Albumin 4.0 (3.5-5.0) g/dL Current Medications Generic Name Dose Route Start Last Admin Trade Name Freq PRN Reason Stop Dose Admin Acetaminophen 650 mg 11/04/24 08:34 Acetaminophen Tab 325 Mg Tab PO Q6HR PRN Mild Pain or Fever > 100.5 Al Hydroxide/Mg Hydroxide 15 ml 11/04/24 08:34 Mag Hydrox/Al Hydrox/Simeth 30 Ml Cup PO Q6HR PRN Indigestion Albuterol Sulfate 2.5 mg 11/04/24 08:45 11/04/24 09:25 Albuterol Nebulized 2.5 Mg/3 Ml INHALATION 2.5 mg RT-Q4H DELORES Administration Aspirin 81 mg 11/05/24 09:00 Aspirin 81 Mg PO DAILY [facility] Atorvastatin Calcium 40 mg 11/04/24 21:00 Atorvastatin 40 Mg Tab PO HS [facility] Budesonide/Formoterol Fumarate 2 puff 11/04/24 08:45 11/04/24 09:25 Symbicort 160-4.5 Mcg Inhaler INHALATION 2 puff RT-BID DELORES Administration Calcium Carbonate/Glycine 1,000 mg 11/04/24 08:34 Calcium Carbonate 500 Mg Chewable PO Q4HR PRN Dyspepsia Dabigatran 150 mg 11/04/24 09:00 11/04/24 10:07 Dabigatran 150 Mg Cap PO 150 mg BID DELORES Administration Protocol Dronedarone 400 mg 11/04/24 11:15 Dronedarone 400 Mg Tab PO AC-BID [facility] Memantine 10 mg 11/04/24 11:15 Memantine 10 Mg Tab PO BID [facility] Metoprolol Succinate 50 mg 11/04/24 10:30 Metoprolol Succinate (Er) 50 Mg Tab.Er.24h PO DAILY [facility] Morphine Sulfate 4 mg 11/04/24 08:34 Morphine Sulfate 4 Mg/Ml Syringe IV Q4HR PRN Severe Pain (Scale 7 to 10) Naloxone HCl 0.2 mg 11/04/24 08:34 Naloxone 0.4 Mg/Ml 1 Ml Vial IV Q2M PRN Opioid Reversal Nitroglycerin 0.4 mg 11/04/24 08:36 Nitroglycerin Sl Tabs 0.4 Mg Tab SUBLINGUAL Q5M PRN Chest Pain Ondansetron HCl 4 mg 11/04/24 08:34 Ondansetron 4 Mg/2 Ml Vial IVP Q8HR PRN Nausea And Vomiting Pramipexole Dihydrochloride 1.5 mg 11/04/24 21:00 Pramipexole 0.5 Mg Tab PO HS [facility] Pregabalin 100 mg 11/04/24 11:15 Pregabalin 100 Mg Cap PO BID [facility] Primidone 150 mg 11/04/24 21:00 Primidone 50 Mg Tab PO HS [facility] Primidone 100 mg 11/04/24 11:15 Primidone 50 Mg Tab PO DAILY [facility] Sertraline HCl 100 mg 11/04/24 11:15 Sertraline 100 Mg Tab PO BID DELORES Tamsulosin HCl 0.8 mg 11/04/24 11:15 Tamsulosin 0.4 Mg Cap.Er.24h PO DAILY [facility] Tramadol HCl 50 mg 11/04/24 08:34 Tramadol 50 Mg Tab PO Q6H PRN Moderate Pain (Scale 4 to 6) Intake and Output 11/03/24 11/04/24 11/04/24 22:59 06:59 14:59 Other: Weight 104.326 kg 11/04/24 04:53 11/04/24 04:53
[2024-11-04] MEDS: DILTIAZEM 5 MG/ML 5 ML VIAL IVP STA (11:26)
[2024-11-04] MEDS ORDERED: DRONEDARONE 400 MG TAB PO SCH (11:30)
[2024-11-04] MEDS: PRIMIDONE 50 MG TAB PO SCH ×2 (11:43→11:44)
[2024-11-04] MEDS: TAMSULOSIN 0.4 MG CAP.ER.24H PO SCH (11:43)
[2024-11-04] MEDS: SERTRALINE 100 MG TAB PO SCH (11:43)
[2024-11-04] MEDS: MEMANTINE 10 MG TAB PO SCH (11:44)
[2024-11-04] MEDS: METOPROLOL SUCCINATE (ER) 50 MG TAB.ER.24H PO SCH (11:44)
[2024-11-04] MEDS: PREGABALIN 100 MG CAP PO SCH (11:44)
[2024-11-04] MEDS: AMIODARONE 200 MG TAB PO SCH (11:44)
[2024-11-04] MEDS ORDERED: BENZOCAINE SPRAY 1 CAN TOPICAL PRN (12:14)
[2024-11-04] MEDS ORDERED: fentaNYL (PF) 50 MCG/ML 5 ML AMP IVP PRN (12:14)
[2024-11-04] MEDS ORDERED: MIDAZOLAM 2 MG/2 ML VIAL IV PRN (12:14)
[2024-11-04] MEDS: FUROSEMIDE 40 MG TAB PO SCH (16:02)
--- NOTE | 2024-11-04 20:04 | P.HPIM ---
History of Present Illness H&P Date: 11/04/24 Chief Complaint: Short of breath 69-year-old patient of Dr. Gutierrez. Chronic stable medical conditions include some cognitive impairment, GERD, hyperlipidemia, hypertension, early Parkinson's versus essential tremor, , obstructive sleep apnea does not use CPAP, irritable bowel syndrome, BPH hiatal hernia. coronary artery disease with stent. Paroxysmal atrial fibrillation. Has had cardioversion. Patient now presents with 2 weeks of increasing shortness of breath. He saw Dr. Hernandez on Monday in the office and some medication adjusted. He is planning for a cardiac cath down the road. About 2 AM patient woke up with more shortness of breath. Rather significant. His pulse was rate racing anywhere from 70-1 60. No cough. No edema. Does use 1 pillow at night. No fever no chills. ER was found to be in atrial fibrillation with a rapid ventricular rate. In the ER received IV Cardizem bolus once. Did receive one-time dose of Lasix. Review of systems: GEN.: Tired EYES: None HEENT: None NECK: None RESPIRATORY: As above CARDIOVASCULAR: As above GASTROINTESTINAL: None GENITOURINARY: None MUSCULOSKELETAL: Joint pains LYMPHATICS: None HEMATOLOGICAL: None PSYCHIATRY: None NEUROLOGICAL: None Social history: lives with no smoking. Stopped drinking alcohol in 2004. Prior to that used to drink every day On examination: VITAL SIGNS: 7.7, 151, 18, 109 x 75, 95% room air upon presentation GENERAL APPEARANCE: BMI 29.5, reclining bed awake a bit tired HEENT: Normal external appearance of nose and ear. Oral cavity normal EYES: Pupils equal. Conjunctiva normal. NECK: JVD not raised. Mass not palpable. RESPIRATORY: Respiratory effort increased, diminished breath sounds, CARDIOVASCULAR: Heart sounds irregular no edema. ABDOMEN: Soft. Liver and spleen not palpable. No tenderness. No mass palpable. PSYCHIATRY: Alert and oriented x3. Mood and affect normal NEUROLOGICAL: Cranial nerves grossly intact per sensation grossly intact LYMPHATICS: No lymph nodes were palpable neck and axilla INVESTIGATIONS, reviewed in the clinical context: November 04: White count 7.7 hemoglobin 14.4 platelets 250 sodium 140 potassium 4 creatinine 0.8 Troponin I less than 0.012 x 3 EKG tracing personally reviewed by me-atrial fibrillation. Rate 137 Chest x-ray film personally reviewed by me-cardiomegaly. Somewhat prominent pulmonary artery Previous investigations: 2D echocardiogram [May 2024] EF 55 to 60%. Mild TR, AR, MR. Assessment and plan: -Paroxysmal atrial fibrillation with a prior cardioversion now presenting with a rapid ventricular rate. Symptomatic. Given IV Cardizem 20 mg bolus in the ER. Telemetry. Cardiology consulted. Lopressor increased Pradaxa. Amiodarone. -Chronic hypoxic respiratory failure Patient does use 1 to 2 L oxygen at home more as needed. -Coronary artery disease with prior history of stent Lipitor. Pradaxa Toprol-XL -GERD Tums when necessary -Hyperlipidemia Lipitor -Essential hypertension Amlodipine. Toprol-XL -BPH, with bladder outflow obstruction Flomax -Obstructive sleep apnea does not use CPAP -Early Parkinson disorder with tremors Mirapex, primidone -Irritable bowel syndrome -Bipolar depression Zoloft, -Full code Care was discussed with the patient. Seen by cardiology. Pradaxa increased to twice a day. Metoprolol 50 mg daily. Amiodarone increased to 200 mg a day. Per cardiology plan for SUSY and cardioversion tomorrow. Given the complexity and severity of patient's condition expect the patient to be in the hospital at least for 2 overnights Past Medical History Past Medical History: Coronary Artery Disease (CAD), Chest Pain / Angina, Heart Failure, Dementia, GERD/Reflux, Hyperlipidemia, Hypertension, Myocardial Infarction (HI), Neurologic Disorder, Pneumonia, Prostate Disorder, Renal Disease, Skin Disorder, Sleep Apnea/CPAP/BIPAP Additional Past Medical History / Comment(s): early parkinson's with essential tremors, "lewy body dementia" R nephrolithiasis with surgery, EDITH with no CPAP, Irritable Bowel Syndrome diarrhea off and on, pneumonia/bronchitis, BPH, blood in stool-EGD/colonoscopy were normal, past hiatal hernia(sx), past falls., kidney failure, Last Myocardial Infarction Date:: 06/09/13 History of Any Multi-Drug Resistant Organisms: None Reported Past Surgical History: Back Surgery, Heart Catheterization, Heart Catheterization With Stent, Hernia Repair Additional Past Surgical History / Comment(s): 05/2013 stent to LAD and then a cardiac cath which showed stent patent, Recent R kidney stone removal, 03/19/15 Laparoscopic Elizabeth fundlaplication. SKIN GRAFTS CHEST & BACK FROM BASSETT AT 13 YRS OLD., COLONOSCOPY. EGD, L lazy eye surgery as toddler. c3 c4 fusion, c4 c5 fusion. Past Anesthesia/Blood Transfusion Reactions: No Reported Reaction Additional Past Anesthesia/Blood Transfusion Reaction / Comment(s): Pt received blood in 1967 without reaction. Date of Last Stent Placement:: 12/2017 Past Psychological History: Bipolar, Depression Smoking Status: Never smoker Past Alcohol Use History: None Reported Past Drug Use History: None Reported - Past Family History Mother Family Medical History: Liver Disease Additional Family Medical History / Comment(s): Mother was an alcoholic. She of cirrhosis of the liver at age 60yrs. Father Family Medical History: Cancer, Coronary Artery Disease (CAD), Myocardial Infarction (HI) Additional Family Medical History / Comment(s): SKIN CA. Father of a HI at age 65 yrs. Brother(s) Family Medical History: Cancer Additional Family Medical History / Comment(s): LEUKEMIA, LYMPH NODE CA AND MULTIPLE MYELOMA. Medications and Allergies Home Medications Medication Instructions Recorded Confirmed Type Primidone [Mysoline] 100 mg PO DAILY 12/20/17 11/04/24 History Memantine [Namenda] 10 mg PO BID 02/17/20 11/04/24 History Pramipexole Di-HCl [Mirapex] 1.5 mg PO HS 02/17/20 11/04/24 History Pregabalin [Lyrica] 100 mg PO BID 03/10/21 11/04/24 History Sertraline [Zoloft] 100 mg PO BID 08/18/21 11/04/24 History Primidone [Mysoline] 150 mg PO HS 02/17/24 11/04/24 History Tamsulosin [Flomax] 0.8 mg PO DAILY 05/19/24 11/04/24 History amLODIPine [Norvasc] 5 mg PO DAILY #30 tab 05/24/24 11/04/24 Rx Atorvastatin [Lipitor] 80 mg PO HS 11/04/24 11/04/24 History Dabigatran [Pradaxa] 150 mg PO DAILY 11/04/24 11/04/24 History Furosemide [Lasix] 40 mg PO DAILY 11/04/24 11/04/24 History Metoprolol Succinate [Toprol XL] 50 mg PO DAILY 11/04/24 11/04/24 History Nitroglycerin Sl Tabs [Nitrostat] 0.4 mg SUBLINGUAL Q5M PRN 11/04/24 11/04/24 History Allergies Allergy/AdvReac Type Severity Reaction Status Date / Time No Known Allergies Allergy Verified 11/04/24 09:36 Physical Exam Vitals: Vital Signs Temp Pulse Resp BP Pulse Ox 11/04/24 18:47 98.6 F 112 H 20 105/89 95 11/04/24 16:43 96 11/04/24 16:38 94 L 11/04/24 16:28 92 11/04/24 16:00 117 H 19 99/79 94 L 11/04/24 15:46 93 20 102/77 95 11/04/24 14:33 112 H 18 122/83 94 L 11/04/24 12:22 105 H 11/04/24 12:13 93 11/04/24 11:50 102 H 19 100/80 93 L 11/04/24 09:39 90 11/04/24 09:26 79 11/04/24 07:30 97.7 F 86 18 109/75 95 11/04/24 04:52 151 H 11/04/24 04:44 97.5 F L 60 18 101/71 98 Intake and Output 11/04/24 11/04/24 11/04/24 06:59 14:59 22:59 Output Total 350 Balance -350 Output: Urine 350 Other: Weight 104.326 kg Results CBC & Chem 7: 11/04/24 04:53 11/04/24 04:53 Labs: Abnormal Lab Results - Last 24 Hours (Table) 11/04/24 11/04/24 Range/Units 04:53 04:53 RDW 16.1 H (11.5-15.5) % Glucose 125 H (74-99) mg/dL
[2024-11-04] MEDS: ATORVASTATIN 40 MG TAB PO SCH (22:42)
[2024-11-04] MEDS: PRAMIPEXOLE 0.5 MG TAB PO SCH (22:44)
[2024-11-05 07:37] VITALS: BP 143/92; RESP 19; TEMP 98.6
[2024-11-05 08:34] LABS: Chol/HDL Ratio 3.94 Ratio; LDL Cholesterol,Calculated 54.1 mg/dL (0.0-131.0)
[2024-11-05] MEDS: ASPIRIN 81 MG PO SCH (08:43)
[2024-11-05] MEDS ORDERED: FUROSEMIDE 40 MG TAB PO SCH (09:00)
[2024-11-05 09:46] VITALS: PULSE 68
--- NOTE | 2024-11-05 10:55 | P.PN ---
Subjective HISTORY OF PRESENT ILLNESS: This is a 69-year-old male with a past medical history significant for atrial fibrillation, coronary artery disease with previous multivessel stenting, hypertension, hyperlipidemia, heart failure, and carotid atherosclerosis. Patient follows in the office with Dr. Hernandez. We have been asked to see the patient in consultation for chest pain. Patient examined at the bedside in the emergency room. Patient presented to the hospital for chief complaint of shortness of breath. Patient states he was also having palpitations. He denied having any chest pain or pressure. The patient was found to be in A-fib with RVR. At the time of examination he remains in atrial fibrillation with a heart rate around 115. It is noted that the patient underwent cardioversion in July [address] Hernandez with conversion to sinus mechanism. The patient states he believes he has been in sinus mechanism since that time. The patient states he has been compliant with all of his medications. However for unknown reason, he states his Pradaxa was changed to once a day dosing recently. DIAGNOSTICS: - EKG reveals A-fib with RVR - Chest xray mild cardiomegaly without acute pulmonary process - Laboratory data: WBC 7.7. Hemoglobin 14.4. Platelet count 250. Sodium 140. Potassium 4.0. BUN 14. Creatinine 0.80. Magnesium 2.0. Troponin negative x 2. proBNP 2420. - Current home cardiac medications include Lasix 40 mg daily, metoprolol succinate 50 mg daily, amlodipine 5 mg daily, Lipitor 80 mg at night - Most recent echocardiogram obtained in May 2024 revealed ejection fraction 55 to 60%, mild TR, mild AR, mild MR - Cardiac catheterization history: July 2019 revealing patent stents within the LAD, circumflex, and RCA. Very distal left anterior descending coronary artery has a significant stenosis, but this is a very small caliber vessel and the patient was advised medical therapy. 11/05/2024 Patient was scheduled for SUSY cardioversion today. However he converted to sinus mechanism overnight. He is maintaining sinus mechanism this morning. Patient denies chest pain or pressure. He denies shortness of breath. Vital signs are stable. PHYSICAL EXAM: VITAL SIGNS: Reviewed. GENERAL: Well-developed in no acute distress. HEENT: Head is normocephalic. Pupils are equal, round. Sclerae anicteric. Mucous membranes of the mouth are moist. Neck supple. No JVD or thyromegaly LUNGS: Respirations even and unlabored. Lungs essentially clear to auscultation bilaterally, diminished. HEART: Regular rate and rhythm. S1 and S2 heard. ABDOMEN: Soft. Nondistended. Nontender. EXTREMITIES: Normal range of motion. No clubbing or cyanosis. Peripheral pulses intact. No lower extremity edema NEUROLOGIC: Awake and alert. Oriented x 3. ASSESSMENT: Palpitations Shortness of breath Paroxysmal atrial fibrillation with RVR, currently maintaining sinus mechanism Recent cardioversion, July 2024 Acute on chronic heart failure with preserved EF Coronary artery disease with previous multivessel stenting Hypertension Hyperlipidemia Carotid atherosclerosis PLAN: Continue current cardiac medications Patient may be discharged home today from a cardiac standpoint He is to follow-up postdischarge in the office with Dr. Hernandez Nurse practitioner note has been reviewed by physician. Signing provider agrees with the documented findings, assessment, and plan of care documented by EMBALMER APPRENTICE as a scribe. Objective - Vital Signs Vital signs: Vital Signs Temp 98.6 F 11/05/24 07:00 Pulse 68 11/05/24 09:44 Resp 19 11/05/24 07:00 BP 143/92 11/05/24 07:00 Pulse Ox 95 11/05/24 09:34 FiO2 Intake & Output 11/04/24 11/05/24 11/05/24 18:59 06:59 18:59 Intake Total 240 Output Total 350 Balance -350 240 Weight 104.326 kg Intake: Oral 240 Output: Urine 350 Other: Voiding Method Toilet Urinal # Voids 0 - Labs CBC & Chem 7: 11/04/24 04:53 11/04/24 04:53 Labs: Abnormal Lab Results - Last 24 Hours (Table) 11/04/24 Range/Units 04:53 Triglycerides 151.00 H (0.00-149.00) mg/dL HDL Cholesterol 28.70 L (40.00-60.00) mg/dL
[2024-11-05] MEDS ORDERED: ALBUTEROL NEBULIZED 2.5 MG/3 ML INHALATION PRN (13:05)
--- NOTE | 2024-11-05 16:38 | P.DS ---
Providers Date of admission: 11/04/24 08:35 Expected date of discharge: 11/05/24 Attending physician: Pierce Chakraborty Consults: 11/04/24 08:34 Consult Physician Routine Consulting Provider: Deshawn Hernandez Consult Reason/Comments: Stable angina Do you want consulting provider notified?: Yes, Notify in am Primary care physician: [facility] Hospital Course: Chief Complaint: Short of breath 69-year-old patient of Dr. Gutierrez. Chronic stable medical conditions include some cognitive impairment, GERD, hyperlipidemia, hypertension, early Parkinson's versus essential tremor, , obstructive sleep apnea does not use CPAP, irritable bowel syndrome, BPH hiatal hernia. coronary artery disease with stent. Paroxysmal atrial fibrillation. Has had cardioversion. Patient now presents with 2 weeks of increasing shortness of breath. He saw Dr. Hernandez on Monday in the office and some medication adjusted. He is planning for a cardiac cath down the road. About 2 AM patient woke up with more shortness of breath. Rather significant. His pulse was rate racing anywhere from 70-1 60. No cough. No edema. Does use 1 pillow at night. No fever no chills. ER was found to be in atrial fibrillation with a rapid ventricular rate. In the ER received IV Cardizem bolus once. Did receive one-time dose of Lasix. November 05: Patient is back in sinus rhythm. Comfortable. No cardiac symptoms.Cleared by cardiology for discharge. Pradaxa has been increased to 150 mg twice daily. Lasix 40 mg twice daily. And amiodarone to 200 mg daily. Patient will follow-up with his content development specialist. Patient to follow-up with Dr. Hernandez-content development specialist Social history: lives with no smoking. Stopped drinking alcohol in 2004. Prior to that used to drink every day On examination: VITAL SIGNS: 98.6, 67, 19, 143/92, 95% room air GENERAL APPEARANCE: BMI 29.5,, notable HEENT: Normal external appearance of nose and ear. Oral cavity normal EYES: Pupils equal. Conjunctiva normal. NECK: JVD not raised. Mass not palpable. RESPIRATORY: Respiratory effort increased, diminished breath sounds, CARDIOVASCULAR: First second sound normal, no edema. ABDOMEN: Soft. Liver and spleen not palpable. No tenderness. No mass palpable. PSYCHIATRY: Alert and oriented x3. Mood and affect normal INVESTIGATIONS, reviewed in the clinical context: November 04: White count 7.7 hemoglobin 14.4 platelets 250 sodium 140 potassium 4 creatinine 0.8 Troponin I less than 0.012 x 3 EKG tracing personally reviewed by me-atrial fibrillation. Rate 137 Chest x-ray film personally reviewed by me-cardiomegaly. Somewhat prominent pulmonary artery Previous investigations: 2D echocardiogram [May 2024] EF 55 to 60%. Mild TR, AR, MR. Assessment and plan: -Paroxysmal atrial fibrillation with a prior cardioversion now presenting with a rapid ventricular rate. Back into sinus rhythm Given IV Cardizem 20 mg bolus in the ER. Telemetry. Cardiology following Toprol-XL 50 mg a day Pradaxa increased to 150 mg twice daily. Amiodarone increased to 200 g a day. -Chronic hypoxic respiratory failure Patient does use 1 to 2 L oxygen at home more as needed. -Coronary artery disease with prior history of stent Lipitor. Pradaxa Toprol-XL -GERD Tums when necessary -Hyperlipidemia Lipitor -Essential hypertension Amlodipine. Toprol-XL -BPH, with bladder outflow obstruction Flomax -Obstructive sleep apnea does not use CPAP -Early Parkinson disorder with tremors Mirapex, primidone -Irritable bowel syndrome -Bipolar depression Zoloft, -Full code Disposition: Home Past Medical History Past Medical History: Coronary Artery Disease (CAD), Chest Pain / Angina, Heart Failure, Dementia, GERD/Reflux, Hyperlipidemia, Hypertension, Myocardial Infarction (OR), Neurologic Disorder, Pneumonia, Prostate Disorder, Renal Disease, Skin Disorder, Sleep Apnea/CPAP/BIPAP Additional Past Medical History / Comment(s): early parkinson's with essential tremors, "lewy body dementia" R nephrolithiasis with surgery, EDITH with no CPAP, Irritable Bowel Syndrome diarrhea off and on, pneumonia/bronchitis, BPH, blood in stool-EGD/colonoscopy were normal, past hiatal hernia(sx), past falls., kidney failure, Last Myocardial Infarction Date:: 06/09/13 History of Any Multi-Drug Resistant Organisms: None Reported Past Surgical History: Back Surgery, Heart Catheterization, Heart Catheterization With Stent, Hernia Repair Additional Past Surgical History / Comment(s): 05/2013 stent to LAD and then a cardiac cath which showed stent patent, Recent R kidney stone removal, 03/19/15 Laparoscopic Elizabeth fundlaplication. SKIN GRAFTS CHEST & BACK FROM BASSETT AT 13 YRS OLD., COLONOSCOPY. EGD, L [facility] eye surgery as toddler. c3 c4 fusion, c4 c5 fusion. Past Anesthesia/Blood Transfusion Reactions: No Reported Reaction Additional Past Anesthesia/Blood Transfusion Reaction / Comment(s): Pt received blood in 1967 without reaction. Date of Last Stent Placement:: 12/2017 Past Psychological History: Bipolar, Depression Smoking Status: Never smoker Past Alcohol Use History: None Reported Past Drug Use History: None Reported Plan - Discharge Summary New Discharge Prescriptions: New Amiodarone [Cordarone] 200 mg PO DAILY #90 tab Aspirin 81 mg PO DAILY #90 tab Furosemide [Lasix] 40 mg PO BID@0900,1600 #60 tab Dabigatran [Pradaxa] 150 mg PO BID #60 cap Continue Primidone [Mysoline] 100 mg PO DAILY Memantine [Namenda] 10 mg PO BID Pramipexole Di-HCl [Mirapex] 1.5 mg PO HS Pregabalin [Lyrica] 100 mg PO BID Sertraline [Zoloft] 100 mg PO BID Primidone [Mysoline] 150 mg PO HS Tamsulosin [Flomax] 0.8 mg PO DAILY amLODIPine [Norvasc] 5 mg PO DAILY #30 tab Nitroglycerin Sl Tabs [Nitrostat] 0.4 mg SUBLINGUAL Q5M PRN PRN Reason: Chest Pain Metoprolol Succinate [Toprol XL] 50 mg PO DAILY Atorvastatin [Lipitor] 80 mg PO HS Discontinued Furosemide [Lasix] 40 mg PO DAILY Dabigatran [Pradaxa] 150 mg PO DAILY Discharge Medication List Primidone [Mysoline] 100 mg PO DAILY 12/20/17 [History] Memantine [Namenda] 10 mg PO BID 02/17/20 [History] Pramipexole Di-HCl [Mirapex] 1.5 mg PO HS 02/17/20 [History] Pregabalin [Lyrica] 100 mg PO BID 03/10/21 [History] Sertraline [Zoloft] 100 mg PO BID 08/18/21 [History] Primidone [Mysoline] 150 mg PO HS 02/17/24 [History] Tamsulosin [Flomax] 0.8 mg PO DAILY 05/19/24 [History] amLODIPine [Norvasc] 5 mg PO DAILY #30 tab 05/24/24 [Rx] Atorvastatin [Lipitor] 80 mg PO HS 11/04/24 [History] Metoprolol Succinate [Toprol XL] 50 mg PO DAILY 11/04/24 [History] Nitroglycerin Sl Tabs [Nitrostat] 0.4 mg SUBLINGUAL Q5M PRN 11/04/24 [History] Amiodarone [Cordarone] 200 mg PO DAILY #90 tab 11/05/24 [Rx] Aspirin 81 mg PO DAILY #90 tab 11/05/24 [Rx] Dabigatran [Pradaxa] 150 mg PO BID #60 cap 11/05/24 [Rx] Furosemide [Lasix] 40 mg PO BID@0900,1600 #60 tab 11/05/24 [Rx] Follow up Appointment(s)/Referral(s): Román Gutierrez DO [Primary Care Provider] - 1-2 days Deshawn Hernandez MD [STAFF PHYSICIAN] - 11/11/24 8:30 am Discharge Disposition: HOME SELF-CARE
[2024-11-06] MEDS ORDERED: amLODIPine 5 MG TAB PO SCH (09:00)
== END 2024-11-05 14:40 | disposition home or self-care (01) ==
LOC: EC 04:39 → 6NMEDSUR 08:34 → OBSVTOIN 08:35 → INTOOBSV 08:35 → 6NMEDSUR 11:37 → UNDODISIN 11-05 14:40
PROVIDERS: ADMIT Hospitalist; ATTEND Hospitalist
DX: I48.0 Paroxysmal atrial fibrillation (principal); J96.11 Chronic respiratory failure with hypoxia; I11.0 Hypertensive heart disease with heart failure; I50.33 Acute on chronic diastolic (congestive) heart failure; I25.10 Atherosclerotic heart disease of native coronary artery without angina pectoris; E78.5 Hyperlipidemia, unspecified; F02.83 Dementia in other diseases classified elsewhere, unspecified severity, with mood disturbance; F31.9 Bipolar disorder, unspecified; G20.A1 Parkinson's disease without dyskinesia, without mention of fluctuations; G31.83 Neurocognitive disorder with Lewy bodies; G47.33 Obstructive sleep apnea (adult) (pediatric); I25.2 Old myocardial infarction; I65.29 Occlusion and stenosis of unspecified carotid artery; K21.9 Gastro-esophageal reflux disease without esophagitis; K58.9 Irritable bowel syndrome, unspecified; N40.1 Benign prostatic hyperplasia with lower urinary tract symptoms; N13.8 Other obstructive and reflux uropathy; Z87.01 Personal history of pneumonia (recurrent); Z99.81 Dependence on supplemental oxygen; Z79.02 Long term (current) use of antithrombotics/antiplatelets; Z79.82 Long term (current) use of aspirin; Z79.899 Other long term (current) drug therapy; Z95.5 Presence of coronary angioplasty implant and graft
CPT/HCPCS: 96374; 99291; 36415; 94640 ×4; 94760 ×2; 93005 ×2; 83880; 80061; 80053; 83735; 84484; 85025; 85610; 85730; 71046; G0378 ×2; J1940

== ENCOUNTER → 2024-11-29 | Outpatient (CLI) | payer MEDICARE ==
[2024-11-29 15:56] LABS: African American GFR (CKD) >90 (>60 ml/min/1.73 sqM); Blood Urea Nitrogen 19 mg/dL (9-20); Non-African American GFR(CKD) 89 (>60 ml/min/1.73 sqM)
--- NOTE | 2024-11-29 16:24 | CT ---
EXAMINATION TYPE: CT angio chest CT DLP: 492.1 mGycm, Automated exposure control for dose reduction was used. DATE OF EXAM: 11/29/2024 4:18 PM COMPARISON: Chest radiograph 11/04/2024, CTA Chest 01/25/2022 CLINICAL INDICATION:Male, 69 years old with history of R16.0 HEPATOMEGALY N28.1 KIDNEY CYST; SOB x 6 months TECHNIQUE/CONTRAST: CTA scan of the thorax is performed with IV Contrast, patient injected with 100 mL of Isovue 370, pul monary embolism protocol. MIP images are created and reviewed. FINDINGS: Pulmonary Artery: There is no evidence for a filling defect within the pulmonary vasculature to sugge st acute pulmonary embolism. The right main pulmonary artery is dilated measuring up to 3.3 cm. The left main pulmonary artery measures up to 2.5 cm. Lungs/Pleura: No evidence of focal consolidation, pleural effusion or pneumothorax. Minimal bilateral lower lobe subsegmental dependent atelectasis. No suspicious pulmonary nodule or mass. Airway: Large airways are patent. Heart: Heart is within normal limits for size.. No pericardial effusion. Mild to moderate coronary ar gildardo calcifications. Vasculature: No evidence of aortic aneurysm. Bovine aortic arch. Mild atherosclerotic calcification o f the aorta and its branches. Mediastinum: No evidence of adenopathy. Musculoskeletal: Mild degenerative disc disease changes are present throughout the thoracolumbar spin e. No acute osseous abnormality. Remote healed right lateral eighth rib fracture. Soft Tissues: Unremarkable. Lower neck: No significant findings. Upper Abdomen: Postsurgical changes at the GE junction. IMPRESSION: 1. No evidence of pulmonary embolism or acute thoracic process. 2. Dilated pulmonary artery which can be seen with pulmonary arterial hypertension. [facility], , 11/29/2024 4:22 PM
== END | disposition home or self-care (01) ==
LOC: RADCTMAIN 15:12
PROVIDERS: ATTEND Internal Medicine
DX: N28.1 Cyst of kidney, acquired (principal); R16.0 Hepatomegaly, not elsewhere classified; R06.02 Shortness of breath
CPT/HCPCS: 82565; 84520; 71275; 36415; Q9967

== ENCOUNTER 2025-04-22 20:39 | Observation (INO) | payer MEDICARE ==
[2025-04-22 22:11] LABS: Basophils # (A) 0.05 10*3/uL (0.00-0.10); Basophils % (A) 0.7 %; Eosinophils # (A) 0.03 10*3/uL (0.04-0.35); Eosinophils % (A) 0.4 %; HCT 38.1 % (39.6-50.0); HGB 12.7 g/dL (13.0-17.0); Lymphocytes # (A) 1.13 10*3/uL (0.90-5.00); Lymphocytes % (A) 16.3 %; MCH 30.5 pg (27.0-32.0); MCHC 33.3 g/dL (32.0-37.0); MCV 91.4 fL (80.0-97.0); Mean Platelet Volume 9.2 fL (9.5-12.2); Monocytes # (A) 0.88 10*3/uL (0.20-1.00); Monocytes % (A) 12.7 %; Neutrophils # (A) 4.82 10*3/uL (1.80-7.70); Neutrophils % (A) 69.8 %; Platelet Count 185 10*3/uL (140-440); RBC 4.17 10*6/uL (4.40-5.60); RDW 14.5 % (11.5-14.5); WBC 6.92 10*3/uL (4.50-10.00)
[2025-04-22 22:21] LABS: INR 1.1 (<1.2)
[2025-04-22 22:22] LABS: Partial Thromboplastin Time 28.5 sec (22.0-30.0)
[2025-04-22 22:28] LABS: ALT 20 U/L (4-49); AST 22 U/L (17-59); African American GFR (CKD) >90 (>60 ml/min/1.73 sqM); Alkaline Phosphatase 68 U/L (38-126); Anion Gap 14 mmol/L; Blood Urea Nitrogen 15 mg/dL (9-20); Carbon Dioxide 25 mmol/L (22-30); Chloride 99 mmol/L (98-107); Glucose 120 mg/dL (74-99); Non-African American GFR(CKD) 89 (>60 ml/min/1.73 sqM); Potassium 3.4 mmol/L (3.5-5.1); Sodium 138 mmol/L (137-145); Total Bilirubin 0.4 mg/dL (0.2-1.3); Total Protein 6.7 g/dL (6.3-8.2)
--- NOTE | 2025-04-22 22:44 | ED ---
Headache HPI - General Chief Complaint: Headache Stated Complaint: Migraine Time Seen by Provider: 04/22/25 21:03 Mode of arrival: ambulatory Limitations: no limitations - History of Present Illness Initial Comments: 70-year-old male presenting with chief complaint of headache. Headache has been ongoing for 4 days. Present on the left side of the head. He was seen at a different hospital yesterday, he reports he was given a pain shot and had improvement that allowed him to sleep, however today the pain is returned. He reports that the pain did come on suddenly 4 days ago. Patient does take Brilinta. He denies any head injury or trauma. No nausea or vomiting. Does r eport some dizziness and some blurriness in his left eye. Does report some neck pain which is chronic. No numbness or tingling. No chest pain or difficulty breathing. - Related Data Home Medications Medication Instructions Recorded Confirmed Memantine [Namenda] 10 mg PO BID 02/17/20 04/23/25 Pramipexole Di-HCl [Mirapex] 1.5 mg PO HS 02/17/20 04/23/25 Pregabalin [Lyrica] 100 mg PO HS 03/10/21 04/23/25 Sertraline [Zoloft] 200 mg PO DAILY 08/18/21 04/23/25 Primidone [Mysoline] 150 mg PO DAILY 02/17/24 04/23/25 Tamsulosin [Flomax] 0.8 mg PO DAILY 05/19/24 04/23/25 Atorvastatin [Lipitor] 80 mg PO HS 11/04/24 04/23/25 Metoprolol Succinate [Toprol XL] 50 mg PO DAILY 11/04/24 04/23/25 Nitroglycerin Sl Tabs [Nitrostat] 0.4 mg SL Q5M PRN 11/04/24 04/23/25 Amiodarone [Cordarone] 100 mg PO DAILY 12/25/24 04/23/25 Clopidogrel [Plavix] 75 mg PO DAILY 04/23/25 04/23/25 Furosemide [Lasix] 40 mg PO DAILY 04/23/25 04/23/25 Losartan Potassium 100 mg PO DAILY 04/23/25 04/23/25 Pregabalin [Lyrica] 100 mg PO DAILY PRN 06/04/25 06/04/25 amLODIPine [Norvasc] 2.5 mg PO DAILY 04/23/25 04/23/25 Previous Rx's Medication Instructions Recorded Dabigatran [Pradaxa] 150 mg PO BID #60 cap 11/05/24 Allergies Allergy/AdvReac Type Severity Reaction Status Date / Time No Known Allergies Allergy Verified 04/23/25 09:24 Review of Systems ROS Statement: Those systems with pertinent positive or pertinent negative responses have been documented in the HPI. ROS Other: All systems not noted in ROS Statement are negative. Past Medical History Past Medical History: Atrial Fibrillation, Coronary Artery Disease (CAD), Chest Pain / Angina, Heart Failure, Dementia, GERD/Reflux, Hyperlipidemia, Hypertension, Memory Impairment, Myocardial Infarction (CO), Neurologic Disor sony, Pneumonia, Prostate Disorder, Renal Disease, Skin Disorder, Sleep Apnea/CPAP/BIPAP Additional Past Medical History / Comment(s): early parkinson's with essential tremors, "lewy body dementia"-short term memory less, R nephrolithiasis with surgery, EDITH with no CPAP, Irritable Bowel Syndrome diarrhea off and on, pneumonia/bronchitis, BPH, blood in stool-EGD/colonoscopy were normal, past hiatal hernia(sx), past falls., hx acute kidney failure; SOB with activity Last Myocardial Infarction Date:: 06/09/13 History of Any Multi-Drug Resistant Organisms: None Reported Past Surgical History: Back Surgery, Heart Catheterization, Heart Catheterization With Stent, Hernia Repair Additional Past Surgical History / Comment(s): 05/2013 stent to LAD and then a cardiac cath which showed stent patent, Recent R kidney stone removal, 03/19/15 Laparoscopic Elizabeth fundlaplication. SKIN GRAFTS CHEST & BACK FROM BASSETT AT 13 YRS OLD., COLONOSCOPY. EGD, L [facility] eye surgery as toddler. c3 c4 fusion, c4 c5 fusion. Heart cath with Stent x2 RCA Dr. Hernandez 12/27/2024 Past Anesthesia/Blood Transfusion Reactions: No Reported Reaction Additional Past Anesthesia/Blood Transfusion Reaction / Comment(s): Pt received blood in 1967 without reaction. Date of Last Stent Placement:: 12/27/2024 Past Psychological History: Bipolar, Depression Smoking Status: Never smoker Past Alcohol Use History: None Reported Past Drug Use History: None Reported - Past Family History Mother Family Medical History: Liver Disease Additional Family Medical History / Comment(s): Mother was an alcoholic. She of cirrhosis of the liver at age 60yrs. Father Family Medical History: Cancer, Coronary Artery Disease (CAD), Myocardial Infarction (CO) Additional Family Medical History / Comment(s): SKIN CA. Father of a CO at age 65 yrs. Brother(s) Family Medical History: Cancer Additional Family Medical History / Comment(s): LEUKEMIA, LYMPH NODE CA AND MULTIPLE MYELOMA. General Exam Limitations: no limitations General appearance: alert, in no apparent distress Head exam: Present: atraumatic, normocephalic, normal inspection Eye exam: Present: normal appearance, PERRL, EOMI. Absent: periorbital swelling Neck exam: Present: normal inspection. Absent: meningismus Respiratory exam: Absent: respiratory distress Cardiovascular Exam: Present: regular rate Neurological exam: Present: alert, oriented X3 Psychiatric exam: Present: normal affect, normal mood Skin exam: Present: warm, dry, normal color Course Vital Signs 04/22/25 04/22/25 04/22/25 20:40 22:46 23:39 Temperature 98.5 F 98.2 F Pulse Rate 64 68 62 Pulse Rate [ Fbi Profiler ] Respiratory 18 22 20 Rate Blood Pressure 187/92 195/100 169/94 Blood Pressure [Right Arm] O2 Sat by Pulse 95 94 L 94 L Oximetry 04/23/25 04/23/25 04/23/25 00:29 01:00 01:46 Temperature 98.1 F Pulse Rate 58 L 60 Pulse Rate [ Fbi Profiler ] Respiratory 20 16 Rate Blood Pressure 179/108 124/108 165/92 Blood Pressure [Right Arm] O2 Sat by Pulse 94 L 95 Oximetry 04/23/25 04/23/25 04/23/25 02:00 05:17 05:35 Temperature 98.4 F Pulse Rate 58 L 59 L 58 L Pulse Rate [ Fbi Profiler ] Respiratory 16 18 18 Rate Blood Pressure 159/93 183/119 159/96 Blood Pressure [Right Arm] O2 Sat by Pulse 96 97 96 Oximetry 04/23/25 04/23/25 04/23/25 07:27 08:00 12:00 Temperature 98.1 F 98.6 F Pulse Rate 63 62 Pulse Rate [ 60 Fbi Profiler ] Respiratory 14 16 18 Rate Blood Pressure 186/97 154/98 Blood Pressure 134/82 [Right Arm] O2 Sat by Pulse 93 L 92 L 96 Oximetry 04/23/25 20:00 Temperature 98.0 F Pulse Rate Pulse Rate [ 60 Fbi Profiler ] Respiratory 18 Rate Blood Pressure Blood Pressure 139/74 [Right Arm] O2 Sat by Pulse Oximetry Medical Decision Making - Medical Decision Making Was pt. sent in by a medical professional or institution ([facility]varado, BENDER HELPER, urgent care, hospital, or [facility]...) When possible be specific @ -No Did you speak to anyone other than the patient for history (EMS, parent, family, police, friend...)? What history was obtained from this source @ -No Did you review nursing and triage notes (agree or disagree)? Why? @ -I reviewed and agree with nursing and triage notes Were old charts reviewed (outside hosp., previous admission, EMS record, old EKG, old radiological studies, urgent care reports/EKG's, [facility] records)? Report findings @ -No old charts were reviewed Differential Diagnosis (chest pain, altered mental status, abdominal pain women, abdominal pain men, vaginal bleeding, weakness, fever, dyspnea, syncope, headache, dizziness, GI bleed, back pain, seizure, CVA, palpatations, mental health, musculoskeletal)? @ -MDM Differential Headache: Migraine, tension, cluster, carbon monoxide, central venous thrombosis, pension karma temporal arteritis, acute closure glaucoma, intercranial hemorrhage, mastoiditis, sinusitis, head injury… this is not meant to be an all-inclusive list. EKG interpreted by me (3pts min.). @ -As above X-rays interpreted by me (1pt min.). @ -None done CT interpreted by me (1pt min.). @ -CTA shows loss of enhancement of the proximal terminal segment of the right vertebral artery with distal recanalization. CT brain without contrast shows no acute process U/S interpreted by me (1pt. min.). @ -None done What testing was considered but not performed or refused? (CT, X-rays, U/S, labs)? Why? @ -None What meds were considered but not given or refused? Why? @ -None Did you discuss the management of the patient with other professionals (professionals i.e. ANDREA Alvarado, BENDER HELPER, lab, RT, psych nurse, social media senior associate, control inspector, teacher, community arts officer, ed case manager)? Give summary @ -Spoke with Dr. Chakraborty who accepts admission Was smoking cessation discussed for >3mins.? @ -No Was critical care preformed (if so, how long)? @ -No Were there social determinants of health that impacted care today? How? (Ho melessness, low income, unemployed, alcoholism, drug addiction, transportation, low edu. Level, literacy, decrease access to med. care, usp, rehab)? @ -No Was there de-escalation of care discussed even if they declined (Discuss DNR or withdrawal of care, Hospice)? DNR status @ -No What co-morbidities impacted this encounter? (DM, HTN, Smoking, COPD, CAD, Cancer, CVA, ARF, Chemo, Hep., AIDS, mental health diagnosis, sleep apnea, morbid obesity)? @ -None Was patient admitted / discharged? Hospital course, mention meds given and route, prescriptions, significant lab abnormalities, going to OR and other pertinent info. @ -70-year-old male presenting with chief complaint of sharp left-sided headache and blurred vision for the last 4 days. History and physical examination are conducted. GCS 15. CTA shows vertebral artery stenosis. Patient is still having pain after multiple rounds of pain medication. Patient will be admitted with consults to neurology and vascular surgery. Patient is agreeable with this plan. I discussed this case with my attending Dr. Orozco Undiagnosed new problem with uncertain prognosis? @ -No Drug Therapy requiring intensive monitoring for toxicity (Heparin, Nitro, Insulin, Cardizem)? @ -No Were any procedures done? @ -No Diagnosis/symptom? @ -Vertebral artery stenosis, headache Acute, or Chronic, or Acute on Chronic? @ -Acute Uncomplicated (without systemic symptoms) or Complicated (systemic symptoms)? @ -Complicated Side effects of treatment? @ -No Exacerbation, Progression, or Severe Exacerbation? @ -No Poses a threat to life or bodily function? How? (Chest pain, USA, CO, pneumonia, PE, COPD, DKA, ARF, appy, cholecystitis, CVA, Diverticulitis, Homicidal, Suicidal, threat to staff... and all critical care pts) @ -Yes - Lab Data Result diagrams: 04/22/25 21:46 04/22/25 21:46 Lab Results 04/22/25 04/22/25 04/22/25 Range/Units 21:46 21:46 21:46 WBC 6.92 (4.50-10.00) 10*3/uL RBC 4.17 L (4.40-5.60) 10*6/uL Hgb 12.7 L (13.0-17.0) g/dL Hct 38.1 L (39.6-50.0) % MCV 91.4 (80.0-97.0) fL MCH 30.5 (27.0-32.0) pg MCHC 33.3 (32.0-37.0) g/dL Plt Count 185 (140-440) 10*3/uL MPV 9.2 L (9.5-12.2) fL Immature Gran % (Auto) 0.1 % Neutrophils % 69.8 % Lymphocytes % 16.3 % Monocytes % 12.7 % Eosinophils % 0.4 % Basophils % 0.7 % Immature Gran # 0.01 (0.00-0.04) 10*3/uL Neutrophils # 4.82 (1.80-7.70) 10*3/uL Lymphocytes # 1.13 (0.90-5.00) 10*3/uL Monocytes # 0.88 (0.20-1.00) 10*3/uL Eosinophils # 0.03 L (0.04-0.35) 10*3/uL Basophils # 0.05 (0.00-0.10) 10*3/uL PT 12.0 (10.0-12.5) sec INR 1.1 (<1.2) APTT 28.5 (22.0-30.0) sec Sodium 138 (137-145) mmol/L Potassium 3.4 L (3.5-5.1) mmol/L Chloride 99 (98-107) mmol/L Carbon Dioxide 25 (22-30) mmol/L Anion Gap 14 mmol/L BUN 15 (9-20) mg/dL Creatinine 0.85 (0.66-1.25) mg/dL Est GFR (CKD-EPI)AfAm >90 (>60 ml/min/1.73 sqM) Est GFR (CKD-EPI)NonAf 89 (>60 ml/min/1.73 sqM) Glucose 120 H (74-99) mg/dL Calcium 8.0 L (8.4-10.2) mg/dL Total Bilirubin 0.4 (0.2-1.3) mg/dL AST 22 (17-59) U/L ALT 20 (4-49) U/L Alkaline Phosphatase 68 (38-126) U/L Total Protein 6.7 (6.3-8.2) g/dL Albumin 4.0 (3.5-5.0) g/dL Disposition Clinical Impression: Vertebral artery stenosis, Headache Disposition: ADMITTED IP TO THIS HOSP Condition: Serious Time of Disposition: 02:03
[2025-04-22] MEDS: MORPHINE SULFATE 4 MG/ML SYRINGE IVP STA (22:53)
[2025-04-23] MEDS: HYDROmorphone 1 MG/ML 1 ML SYRINGE IVP STA (00:33)
--- NOTE | 2025-04-23 01:15 | CT ---
EXAM: CT Angiography Head With Intravenous Contrast CLINICAL HISTORY: ITS.REASON CT Reason: headache TECHNIQUE: Axial computed tomographic angiography images of the head with intravenous contrast. CTDI is 53.9 mGy and DLP is 647.5 mGy-cm. This CT exam was performed using one or more of the following dose reduction techniques: automated exposure control, adjustment of the mA and/or kV according to patient size, and/or use of iterative reconstruction technique. MIP reconstructed images were created and reviewed. COMPARISON: No comparisons. FINDINGS: Right internal carotid artery: No acute findings. Intracranial segment is patent with no significant stenosis. No aneurysm. Right anterior cerebral artery: Unremarkable. No occlusion or significant stenosis. No aneurysm. Right middle cerebral artery: Unremarkable. No occlusion or significant stenosis. No aneurysm. Right posterior cerebral artery: Unremarkable. No occlusion or significant stenosis. No aneurysm. Right vertebral artery: There is loss of enhancement of the proximal terminal right vertebral artery segment with distal recanalization prior to anastomosis with the basilar artery. Left internal carotid artery: No acute findings. Intracranial segment is patent with no significant stenosis. No aneurysm. Left anterior cerebral artery: Unremarkable. No occlusion or significant stenosis. No aneurysm. Left middle cerebral artery: Unremarkable. No occlusion or significant stenosis. No aneurysm. Left posterior cerebral artery: Unremarkable. No occlusion or significant stenosis. No aneurysm. Left vertebral artery: Unremarkable as visualized. Basilar artery: Unremarkable. No occlusion or significant stenosis. No aneurysm. IMPRESSION: There is loss of enhancement of the proximal terminal segment of the right vertebral artery with distal recanalization. Recommend brain MRI for further evaluation. <MYCVCSECTION> Communications: 04/23/25 01:21 Verify Receipt Verified receipt with Nicole Perez on 04/23 01:21 (-04:00)
--- NOTE | 2025-04-23 01:19 | CT ---
EXAM: CT Head Without Intravenous Contrast CLINICAL HISTORY: ITS.REASON CT Reason: headache TECHNIQUE: Axial computed tomography images of the head/brain without intravenous contrast. CTDI is 48.9 mGy and DLP is 1218 mGy-cm. This CT exam was performed using one or more of the following dose reduction techniques: automated exposure control, adjustment of the mA and/or kV according to patient size, and/or use of iterative reconstruction technique. COMPARISON: Prior head CT from August 18, 2021. FINDINGS: Brain: There is a remote ischemic injury of the left capsule and right thalamus. There is a remote ischemic injury of the left frontal lobe with encephalomalacia and gliosis. No hemorrhage. Mild nonspecific white matter changes. No edema. Ventricles: Unremarkable. No ventriculomegaly. Bones/joints: Unremarkable. No acute fracture. Soft tissues: Unremarkable. Sinuses: Unremarkable as visualized. No acute sinusitis. Mastoid air cells: Unremarkable as visualized. No mastoid effusion. IMPRESSION: No evidence of acute intracranial pathology.
[2025-04-23] MEDS ORDERED: NALOXONE 0.4 MG/ML 1 ML VIAL IV PRN (01:58)
[2025-04-23] MEDS: HYDROmorphone 1 MG/ML 1 ML SYRINGE IVP PRN (05:19)
[2025-04-23] MEDS: ONDANSETRON 4 MG/2 ML VIAL IVP PRN (07:42)
[2025-04-23] MEDS: LOSARTAN 50 MG TAB PO SCH (12:26)
[2025-04-23] MEDS: CLOPIDOGREL 75 MG TAB PO SCH (12:30)
[2025-04-23] MEDS: FUROSEMIDE 40 MG TAB PO SCH (12:30)
[2025-04-23] MEDS: SERTRALINE 100 MG TAB PO SCH (12:30)
[2025-04-23] MEDS: METOPROLOL SUCCINATE (ER) 50 MG TAB.ER.24H PO SCH (12:31)
[2025-04-23] MEDS: amLODIPine 2.5 MG TAB PO SCH (12:31)
[2025-04-23] MEDS: TAMSULOSIN 0.4 MG CAP.ER.24H PO SCH (12:31)
[2025-04-23] MEDS: PRIMIDONE 50 MG TAB PO SCH (12:31)
[2025-04-23] MEDS: MEMANTINE 10 MG TAB PO SCH (12:32)
[2025-04-23] MEDS: AMIODARONE 100 MG TAB PO SCH (12:32)
[2025-04-23] MEDS: NAPROXEN 250 MG TAB PO STA (12:47)
[2025-04-23] MEDS: methylPREDNISolone SOD SUCCI 125 MG/2 ML VIAL IV STA (12:48)
--- NOTE | 2025-04-23 13:03 | P.GSCN ---
History of Present Illness Consult date: 04/23/25 Reason for Consult: Vertebral artery stenosis Requesting physician: Renae Perez History of present illness: This is a pleasant 70-year-old male who has a past medical history including atrial fibrillation, coronary artery disease with history of multiple cardiac stents and follows with Dr. Hernandez, hyperlipidemia, hypertension, and dementia who presented to the emergency department yesterday with complaints of headache for the last 4 days duration and blurred vision and pain behind the left eye. Denies history of regular headaches or migraines. States onset was kind of sudden. He does not get much relief with Tylenol, ibuprofen heat or ice. Does not state that bright light or noise makes it worse. Currently lying with a cold rag over his head. States it is mostly on the left side of his head frontal behind his eye and along the top of his skull. Denies any visual loss. States headache is pretty constant. He had a CT of the brain that showed no acute I mean findings. He had a CT angiogram head reports right vertebral artery stenosis. Vascular surgery and neurology consulted secondary to ve rtebral artery stenosis. Patient takes aspirin 81 mg and Plavix 75 mg daily at home and is on a atorvastatin 80 mg nightly. Labs are unremarkable on admission. He denies any recent head injury. No history of CVA/TIA. CT angiogram head reports no acute findings of bilateral internal carotid adelaide juliana. Reported right vertebral artery loss of enhancement of the proximal terminal right vertebral artery segment with distal recanalization prior to anastomosis with the basilar artery. Review of Systems A 14 point review systems was completed all pertinent positives and negatives as stated in the HPI. Past Medical History Past Medical History: Atrial Fibrillation, Coronary Artery Disease (CAD), Chest Pain / Angina, Heart Failure, Dementia, GERD/Reflux, Hyperlipidemia, Hypertension, Memory Impairment, Myocardial Infarction ([place]), Neurologic Disorder, Pneumonia, Prostate Disorder, Renal Disease, Skin Disorder, Sleep Apnea/CPAP/BIPAP Additional Past Medical History / Comment(s): early parkinson's with essential tremors, "lewy body dementia"-short term memory less, R nephrolithiasis with surgery, EDITH with no CPAP, Irritable Bowel Syndrome diarrhea off and on, pneumonia/bronchitis, BPH, blood in stool-EGD/colonoscopy were normal, past hiatal hernia(sx), past falls., hx acute kidney failure; SOB with activity Last Myocardial Infarction Date:: 06/09/13 History of Any Multi-Drug Resistant Organisms: None Reported Past Surgical History: Back Surgery, Heart Catheterization, Heart Catheterization With Stent, Hernia Repair Additional Past Surgical History / Comment(s): 05/2013 stent to LAD and then a cardiac cath which showed stent patent, Recent R kidney stone removal, 03/19/15 Laparoscopic Elizabeth fundlaplication. SKIN GRAFTS CHEST & BACK FROM BASSETT AT 13 YRS OLD., COLONOSCOPY. EGD, L lazy eye surgery as toddler. c3 c4 fusion, c4 c5 fusion. Heart cath with Stent x2 RCA Dr. eHrnandez 12/27/2024 Past Anesthesia/Blood Transfusion Reactions: No Reported Reaction Additional Past Anesthesia/Blood Transfusion Reaction / Comm: Pt received blood in 1967 without reaction. Date of Last Stent Placement:: 12/27/2024 Past Psychological History: Bipolar, Depression Smoking Status: Never smoker Past Alcohol Use History: None Reported Past Drug Use History: None Reported - Past Family History Mother Family Medical History: Liver Disease Additional Family Medical History / Comment(s): Mother was an alcoholic. She of cirrhosis of the liver at age 60yrs. Father Family Medical History: Cancer, Coronary Artery Disease (CAD), Myocardial Infarction ([place]) Additional Family Medical History / Comment(s): SKIN CA. Father of a [place] at age 65 yrs. Brother(s) Family Medical History: Cancer Additional Family Medical History / Comment(s): LEUKEMIA, LYMPH NODE CA AND MULTIPLE MYELOMA. Medications and Allergies Home Medications Medication Instructions Recorded Confirmed Type Memantine [Namenda] 10 mg PO BID 02/17/20 04/23/25 History Pramipexole Di-HCl [Mirapex] 1.5 mg PO HS 02/17/20 04/23/25 History Pregabalin [Lyrica] 100 mg PO HS 03/10/21 04/23/25 History Sertraline [Zoloft] 200 mg PO DAILY 08/18/21 04/23/25 History Primidone [Mysoline] 150 mg PO DAILY 02/17/24 04/23/25 History Tamsulosin [Flomax] 0.8 mg PO DAILY 05/19/24 04/23/25 History Atorvastatin [Lipitor] 80 mg PO HS 11/04/24 04/23/25 History Metoprolol Succinate [Toprol XL] 50 mg PO DAILY 11/04/24 04/23/25 History Nitroglycerin Sl Tabs [Nitrostat] 0.4 mg SL Q5M PRN 11/04/24 04/23/25 History Dabigatran [Pradaxa] 150 mg PO BID #60 cap 11/05/24 04/23/25 Rx Amiodarone [Cordarone] 100 mg PO DAILY 12/25/24 04/23/25 History Clopidogrel [Plavix] 75 mg PO DAILY 04/23/25 04/23/25 History Furosemide [Lasix] 40 mg PO DAILY 04/23/25 04/23/25 History Losartan Potassium 100 mg PO DAILY 04/23/25 04/23/25 History Pregabalin [Lyrica] 100 mg PO DAILY PRN 04/23/25 04/23/25 History amLODIPine [Norvasc] 2.5 mg PO DAILY 04/23/25 04/23/25 History Allergies Allergy/AdvReac Type Severity Reaction Status Date / Time No Known Allergies Allergy Verified 04/23/25 09:24 Surgical - Exam Vital Signs Temp Pulse Resp BP Pulse Ox 98.5 F 64 18 187/92 95 04/22/25 20:40 04/22/25 20:40 04/22/25 20:40 04/22/25 20:40 04/22/25 20:40 General appearance: The patient is alert, oriented, appears in no acute distress. HET: Head is normocephalic and atraumatic. Left lazy eye. Pupils are equal and reactive. Tenderness to palpation along left frontal and temporal region. Palpable temporal artery. Neck: Supple. No audible bruit. Heart: Regular. Lungs: Equal expansion, normal respiratory effort. Abdomen: Soft, nontender, nondistended. Extremities: Normal skin color and turgor. Palpable radial and DP pulses. Neurological: No focal deficits. Strength and sensation are grossly intact. Results - Labs 04/22/25 21:46 04/22/25 21:46 Abnormal Lab Results - Last 24 Hours (Table) 04/22/25 04/22/25 Range/Units 21:46 21:46 RBC 4.17 L (4.40-5.60) 10*6/uL Hgb 12.7 L (13.0-17.0) g/dL Hct 38.1 L (39.6-50.0) % MPV 9.2 L (9.5-12.2) fL Eosinophils # 0.03 L (0.04-0.35) 10*3/uL Potassium 3.4 L (3.5-5.1) mmol/L Glucose 120 H (74-99) mg/dL Calcium 8.0 L (8.4-10.2) mg/dL Diabetes panel 04/22/25 Range/Units 21:46 Sodium 138 (137-145) mmol/L Potassium 3.4 L (3.5-5.1) mmol/L Chloride 99 (98-107) mmol/L Carbon Dioxide 25 (22-30) mmol/L BUN 15 (9-20) mg/dL Creatinine 0.85 (0.66-1.25) mg/dL Glucose 120 H (74-99) mg/dL Calcium 8.0 L (8.4-10.2) mg/dL AST 22 (17-59) U/L ALT 20 (4-49) U/L Alkaline Phosphatase 68 (38-126) U/L Total Protein 6.7 (6.3-8.2) g/dL Albumin 4.0 (3.5-5.0) g/dL Calcium panel 04/22/25 Range/Units 21:46 Calcium 8.0 L (8.4-10.2) mg/dL Albumin 4.0 (3.5-5.0) g/dL Pituitary panel 04/22/25 Range/Units 21:46 Sodium 138 (137-145) mmol/L Potassium 3.4 L (3.5-5.1) mmol/L Chloride 99 (98-107) mmol/L Carbon Dioxide 25 (22-30) mmol/L BUN 15 (9-20) mg/dL Creatinine 0.85 (0.66-1.25) mg/dL Glucose 120 H (74-99) mg/dL Calcium 8.0 L (8.4-10.2) mg/dL Adrenal panel 04/22/25 Range/Units 21:46 Sodium 138 (137-145) mmol/L Potassium 3.4 L (3.5-5.1) mmol/L Chloride 99 (98-107) mmol/L Carbon Dioxide 25 (22-30) mmol/L BUN 15 (9-20) mg/dL Creatinine 0.85 (0.66-1.25) mg/dL Glucose 120 H (74-99) mg/dL Calcium 8.0 L (8.4-10.2) mg/dL Total Bilirubin 0.4 (0.2-1.3) mg/dL AST 22 (17-59) U/L ALT 20 (4-49) U/L Alkaline Phosphatase 68 (38-126) U/L Total Protein 6.7 (6.3-8.2) g/dL Albumin 4.0 (3.5-5.0) g/dL Assessment and Plan Assessment: 1. Right vertebral artery stenosis 2. Headache 3. Blurred vision 4. Coronary artery disease status post multiple cardiac stents 5. Hyperlipidemia 6. Hypertension 7. Dementia Plan: 1. Will obtain sed rate and CRP 2. Continue with pain management 3. Hold Plavix for possible temporal artery biopsy 4. There is no indication for any vascular surgical intervention for right vertebral artery occlusion 5. Continue with workup and recommendations from neurology Thank you for this consultation, we will continue to follow. The impression and plan of care has been dictated as directed. Dr. Corrine Max performed a history and examination of this patient, discussed the same with the dictator. I agree with the dictator's note ,documented as a scribe. Any additional findings or plans will be noted.
[2025-04-23] MEDS: predniSONE 20 MG TAB PO SCH (14:13)
--- NOTE | 2025-04-23 15:02 | P.CNNES ---
History of Present Illness Consult date: 04/23/25 Requesting physician: Pierce Chakraborty Reason for Consult: severe headache History of Present Illness: This is a 70-year-old gentleman who presents emergency department because of severe headache and left blurry vision. He is accompanied with his son who is at bedside. It seems patient developed headache that started and he stated that it is very severe and according to the who is on the phone she stated that the patient does not have any history of stroke. He states that initially started on left periorbital and it is 10/10, its sharp pain and it radiates initially to the bilateral frontal and entire head but mostly in the frontal and now the sharp pain is normal only over the left temporal region and it is constant. He has mild photophobia and phonophobia. He did have nausea and vomiting today. He had blurry vision associate with this that is mild and its over the left eye. Denies any focal weakness, numbness, speech difficulty,'s swallowing. Denies any fevers recently or travels or sick contacts. Denies any history of stroke in the past. Seems that he fell yesterday. Patient has significant cardiac issues and he has a history of coronary artery disease and he had at least 7 stents and he is on aspirin Plavix. He has history of neuropathy, hypertension, back issues. Some of the workup during this hospital visit consisted of: Patient is afebrile wbc within normal limits I reviewed the rest of the lab workup CT of the head is reported as no evidence of acute intracranial pathology. I personally reviewed the CT and agree with the report CT angiography of the head is reported as there is a loss of enhancement of the proximal terminus segment of the right vertebral artery with distal recanalization. Recommend MRI of the brain for further evaluation Review of Systems As per HPI. Past Medical History Past Medical History: Atrial Fibrillation, Coronary Artery Disease (CAD), Chest Pain / Angina, Heart Failure, Dementia, GERD/Reflux, Hyperlipidemia, Hypertension, Memory Impairment, Myocardial Infarction ([place]), Neurologic Disorder, Pneumonia, Prostate Disorder, Renal Disease, Skin Disorder, Sleep Apnea/CPAP/BIPAP Additional Past Medical History / Comment(s): early parkinson's with essential tremors, "lewy body dementia"-short term memory less, R nephrolithiasis with arellano rgery, EDITH with no CPAP, Irritable Bowel Syndrome diarrhea off and on, pneumonia/bronchitis, BPH, blood in stool-EGD/colonoscopy were normal, past hiatal hernia(sx), past falls., hx acute kidney failure; SOB with activity Last Myocardial Infarction Date:: 06/09/13 History of Any Multi-Drug Resistant Organisms: None Reported Past Surgical History: Back Surgery, Heart Catheterization, Heart Catheterization With Stent, Hernia Repair Additional Past Surgical History / Comment(s): 05/2013 stent to LAD and then a cardiac cath which showed stent patent, Recent R kidney stone removal, 03/19/15 Laparoscopic Elizabeth fundlaplication. SKIN GRAFTS CHEST & BACK FROM B[place]ETT AT 13 YRS OLD., COLONOSCOPY. EGD, L lazy eye surgery as toddler. c3 c4 fusion, c4 c5 fusion. Heart cath with Stent x2 RCA Dr. Hernandez 12/27/2024 Past Anesthesia/Blood Transfusion Reactions: No Reported Reaction Additional Past Anesthesia/Blood Transfusion Reaction / Comment(s): Pt received blood in 1967 without reaction. Date of Last Stent Placement:: 12/27/2024 Past Psychological History: Bipolar, Depression Smoking Status: Never smoker Past Alcohol Use History: None Reported Past Drug Use History: None Reported - Past Family History Mother Family Medical History: Liver Disease Additional Family Medical History / Comment(s): Mother was an alcoholic. She of cirrhosis of the liver at age 60yrs. Father Family Medical History: Cancer, Coronary Artery Disease (CAD), Myocardial Infarction ([place]) Additional Family Medical History / Comment(s): SKIN CA. Father of a [place] at age 65 yrs. Brother(s) Family Medical History: Cancer Additional Family Medical History / Comment(s): LEUKEMIA, LYMPH NODE CA AND MULTIPLE MYELOMA. Medications and Allergies Home Medications Medication Instructions Recorded Confirmed Type Memantine [Namenda] 10 mg PO BID 02/17/20 04/23/25 History Pramipexole Di-HCl [Mirapex] 1.5 mg PO HS 02/17/20 04/23/25 History Pregabalin [Lyrica] 100 mg PO HS 03/10/21 04/23/25 History Sertraline [Zoloft] 200 mg PO DAILY 08/18/21 04/23/25 History Primidone [Mysoline] 150 mg PO DAILY 02/17/24 04/23/25 History Tamsulosin [Flomax] 0.8 mg PO DAILY 05/19/24 04/23/25 History Atorvastatin [Lipitor] 80 mg PO HS 11/04/24 04/23/25 History Metoprolol Succinate [Toprol XL] 50 mg PO DAILY 11/04/24 04/23/25 History Nitroglycerin Sl Tabs [Nitrostat] 0.4 mg SL Q5M PRN 11/04/24 04/23/25 History Dabigatran [Pradaxa] 150 mg PO BID #60 cap 11/05/24 04/23/25 Rx Amiodarone [Cordarone] 100 mg PO DAILY 12/25/24 04/23/25 History Clopidogrel [Plavix] 75 mg PO DAILY 04/23/25 04/23/25 History Furosemide [Lasix] 40 mg PO DAILY 04/23/25 04/23/25 History Losartan Potassium 100 mg PO DAILY 04/23/25 04/23/25 History Pregabalin [Lyrica] 100 mg PO DAILY PRN 04/23/25 04/23/25 History amLODIPine [Norvasc] 2.5 mg PO DAILY 04/23/25 04/23/25 History Allergies Allergy/AdvReac Type Severity Reaction Status Date / Time No Known Allergies Allergy Verified 04/23/25 09:24 Physical Examination - Vital Signs Vital Signs: Vital Signs Temp Pulse Resp BP Pulse Ox 04/23/25 08:00 62 16 154/98 92 L 04/23/25 07:27 98.1 F 63 14 186/97 93 L 04/23/25 05:35 58 L 18 159/96 96 04/23/25 05:17 98.4 F 59 L 18 183/119 97 04/23/25 02:00 58 L 16 159/93 96 04/23/25 01:46 98.1 F 60 16 165/92 95 04/23/25 01:00 124/108 04/23/25 00:29 58 L 20 179/108 94 L 04/22/25 23:39 62 20 169/94 94 L 04/22/25 22:46 98.2 F 68 22 195/100 94 L 04/22/25 20:40 98.5 F 64 18 187/92 95 Intake and Output 04/22/25 04/23/25 04/23/25 22:59 06:59 14:59 Other: Weight 104.326 kg GENERAL: The patient is lying in bed and is mild acute distress. HENT: Tender to touch over the left temporal region. NEUROLOGICAL: Higher mental function: The patient is awake, alert, oriented to self, place and time. Patient is following commands. No aphasia and no neglect. Cranial nerves: The pupils are round, equal and reactive to light and accommodation. Visual el are full to confrontation throughout. Extraocular movement is intact no nystagmus is noted. Facial sensation is normal to touch throughout. The facial strength is normal throughout. Hearing is normal bilaterally to hand rub. Tongue is midline and moved [id number] without any difficulty. No dysarthria is noted. Shoulder shrug is normal bilaterally. Motor: The strength is 5 over 5 throughout. Normal tone and bulk. Cerebellum: Normal finger to nose bilaterally. Sensation: Sensation is normal to touch throughout. Reflexes (right/left): 2+ throughout. Plantars are mute bilaterally. Results - Laboratory Findings CBC and BMP: 04/22/25 21:46 04/22/25 21:46 Abnormal Lab Findings: Abnormal Labs 04/22/25 04/22/25 21:46 21:46 RBC 4.17 L Hgb 12.7 L Hct 38.1 L MPV 9.2 L Eosinophils # 0.03 L Potassium 3.4 L Glucose 120 H Calcium 8.0 L Assessment and Plan Assessment: This is a 70-year-old gentleman with new onset severe headache and its predominantly over the left temporal and he has been having headaches since this past with some blurry vision of the left eye. 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 Recommend strict glucose control and will defer that management to the primary team as well as GI prophylaxis. I spoke with the vascular surgery team and recommended to pursue with left temporal biopsy Ordered MRI of the brain. ESR is ordered and is pending ordered TSH. Will defer the rest of the medical management to primary other specialist The plan discussed with the patient and his son was at bedside as well as his via phone. Thank you for the consultation. Time with Patient: Greater than 30
--- NOTE | 2025-04-23 16:29 | P.HPIM ---
History of Present Illness H&P Date: 04/23/25 Chief Complaint: Left-sided severe headache Very pleasant 70-year-old patient of Dr. Gutierrez. Chronic medical conditions include some cognitive impairment, GERD, hyperlipidemia, hypertension, early Parkinson's versus essential tremor, , obstructive sleep apnea does not use CPAP, irritable bowel syndrome, BPH hiatal hernia. coronary artery disease with stent. Paroxysmal atrial fibrillation. Has had cardioversion. He was in the ER this morning. Since last that is 6 days ago patient with severe headache on the left f temporal side. Does radiate to the top of the head. He had some blurry vision to the left eye. Feels generalized weakness. No focal weakness. No nausea vomiting feels tired. Patient did go to [facility] where he had a CT scan that was negative. Patient received Dilaudid here. Still pain is present. Photophobia. No neck stiffness. Patient is accompanied by the son at the bedside. Review of systems: GEN.: Tired EYES: As above HEENT: As above NECK: None RESPIRATORY: As above CARDIOVASCULAR: As above GASTROINTESTINAL: Constipation had a bowel movement yesterday GENITOURINARY: None MUSCULOSKELETAL: Joint pains LYMPHATICS: None HEMATOLOGICAL: None PSYCHIATRY: None NEUROLOGICAL: None Social history: lives with no smoking. Stopped drinking alcohol in 2004. Prior to that used to drink every day On examination: VITAL SIGNS: 98.1, 63, 14, 154 x 98, 92% room air GENERAL APPEARANCE: BMI 29.5,, resting in bed a bit uncomfortable HEENT: Normal external appearance of nose and ear. Oral cavity normal. Some tenderness in the left f temporal area EYES: Pupils equal. Conjunctiva normal. NECK: JVD not raised. Mass not palpable. RESPIRATORY: Respiratory effort increased, diminished breath sounds, CARDIOVASCULAR: First second sound normal, no edema. ABDOMEN: Soft. Liver and spleen not palpable. No tenderness. No mass palpable. PSYCHIATRY: Alert and oriented x3. Mood and affect anxious NEUROLOGICAL: Cranial nerves grossly intact per sensation grossly intact. Power sensation grossly intact LYMPHATICS: No lymph nodes were palpable neck and axilla INVESTIGATIONS, reviewed in the clinical context: darlin 3: White count 6.9 hemoglobin 12 platelet 185 sodium 138 potassium 3.4 creatinine 0.85 CRP less than 0.5 TSH 3.5 Brain CTA: Loss of enhancement of the proximal terminal segment of the right vertebral artery with distal recanalization. CT brain: No acute there is remote ischemic injury of the left capsular and right thalamus. Encephalomalacia and gliosis. Previous investigations: 2D echocardiogram [May 2024] EF 55 to 60%. Mild TR, AR, MR. Assessment and plan: -Severe cephalgia and more localized to the left temporal area. Now present for 6 days. Some blurry vision of the left eye. Differential does include giant cell arteritis. Patient has a CRP that is less than 0.5 which is rather sensitive.'s of GCA rather unlikely. But given the presentation would not completely rule out the diagnosis. Patient will need a biopsy of the temporal artery. Will give 1 dose of IV steroids. Urgent consultation to neurology Dr. MART- -Persistent atrial fibrillation with prior cardioversion And amiodarone. Pradaxa. Toprol-XL -Chronic hypoxic respiratory failure Patient does use 1 to 2 L oxygen at home more as needed. -Coronary artery disease with prior history of stent Lipitor. Pradaxa Toprol-XL -GERD Tums when necessary -Hyperlipidemia Lipitor -Essential hypertension Amlodipine. Toprol-XL -BPH, with bladder outflow obstruction Flomax -Obstructive sleep apnea does not use CPAP -Early Parkinson disorder with tremors Mirapex, primidone -Mild cognitive impairment Namenda -Irritable bowel syndrome -Bipolar depression Zoloft, -Full code Naproxen will be started for anti-inflammatory effect. Has been getting Dilaudid with not much help that is being discontinued. Discussed with the patient and son, and the on the phone. Past Medical History Past Medical History: Atrial Fibrillation, Coronary Artery Disease (CAD), Chest Pain / Angina, Heart Failure, Dementia, GERD/Reflux, Hyperlipidemia, Hypertension, Memory Impairment, Myocardial Infarction ([place]), Neurologic Disorder, Pneumonia, Prostate Disorder, Renal Disease, Skin Disorder, Sleep Apnea/CPAP/BIPAP Additional Past Medical History / Comment(s): early parkinson's with essential tremors, "lewy body dementia"-short term memory less, R nephrolithiasis with surgery, EDITH with no CPAP, Irritable Bowel Syndrome diarrhea off and on, pneumonia/bronchitis, BPH, blood in stool-EGD/colonoscopy were normal, past hiatal hernia(sx), past falls., hx acute kidney failure; SOB with activity Last Myocardial Infarction Date:: 06/09/13 History of Any Multi-Drug Resistant Organisms: None Reported Past Surgical History: Back Surgery, Heart Catheterization, Heart Ca theterization With Stent, Hernia Repair Additional Past Surgical History / Comment(s): 05/2013 stent to LAD and then a cardiac cath which showed stent patent, Recent R kidney stone removal, 03/19/15 Laparoscopic Elizabeth fundlaplication. SKIN GRAFTS CHEST & BACK FROM BASSETT AT 13 YRS OLD., COLONOSCOPY. EGD, L lazy eye surgery as toddler. c3 c4 fusion, c4 c5 fusion. Heart cath with Stent x2 RCA Dr. Hernandez 12/27/2024 Past Anesthesia/Blood Transfusion Reactions: No Reported Reaction Additional Past Anesthesia/Blood Transfusion Reaction / Comment(s): Pt received blood in 1967 without reaction. Date of Last Stent Placement:: 12/27/2024 Past Psychological History: Bipolar, Depression Smoking Status: Never smoker Past Alcohol Use History: None Reported Past Drug Use History: None Reported - Past Family History Mother Family Medical History: Liver Disease Additional Family Medical History / Comment(s): Mother was an alcoholic. She of cirrhosis of the liver at age 60yrs. Father Family Medical History: Cancer, Coronary Artery Disease (CAD), Myocardial Infarction ([place]) Additional Family Medical History / Comment(s): SKIN CA. Father of a [place] at age 65 yrs. Brother(s) Family Medical History: Cancer Additional Family Medical History / Comment(s): LEUKEMIA, LYMPH NODE CA AND MULTIPLE MYELOMA. Medications and Allergies Home Medications Medication Instructions Recorded Confirmed Type Memantine [Namenda] 10 mg PO BID 02/17/20 04/23/25 History Pramipexole Di-HCl [Mirapex] 1.5 mg PO HS 02/17/20 04/23/25 History Pregabalin [Lyrica] 100 mg PO HS 03/10/21 04/23/25 History Sertraline [Zoloft] 200 mg PO DAILY 08/18/21 04/23/25 History Primidone [Mysoline] 150 mg PO DAILY 02/17/24 04/23/25 History Tamsulosin [Flomax] 0.8 mg PO DAILY 05/19/24 04/23/25 History Atorvastatin [Lipitor] 80 mg PO HS 11/04/24 04/23/25 History Metoprolol Succinate [Toprol XL] 50 mg PO DAILY 11/04/24 04/23/25 History Nitroglycerin Sl Tabs [Nitrostat] 0.4 mg SL Q5M PRN 11/04/24 04/23/25 History Dabigatran [Pradaxa] 150 mg PO BID #60 cap 11/05/24 04/23/25 Rx Amiodarone [Cordarone] 100 mg PO DAILY 12/25/24 04/23/25 History Clopidogrel [Plavix] 75 mg PO DAILY 04/23/25 04/23/25 History Furosemide [Lasix] 40 mg PO DAILY 04/23/25 04/23/25 History Losartan Potassium 100 mg PO DAILY 04/23/25 04/23/25 History Pregabalin [Lyrica] 100 mg PO DAILY PRN 04/23/25 04/23/25 History amLODIPine [Norvasc] 2.5 mg PO DAILY 04/23/25 04/23/25 History Allergies Allergy/AdvReac Type Severity Reaction Status Date / Time No Known Allergies Allergy Verified 04/23/25 09:24 Physical Exam Vitals: Vital Signs Temp Pulse Resp BP Pulse Ox 04/23/25 07:27 98.1 F 63 14 186/97 93 L 04/23/25 05:35 58 L 18 159/96 96 04/23/25 05:17 98.4 F 59 L 18 183/119 97 04/23/25 02:00 58 L 16 159/93 96 04/23/25 01:46 98.1 F 60 16 165/92 95 04/23/25 01:00 124/108 04/23/25 00:29 58 L 20 179/108 94 L 04/22/25 23:39 62 20 169/94 94 L 04/22/25 22:46 98.2 F 68 22 195/100 94 L 04/22/25 20:40 98.5 F 64 18 187/92 95 Intake and Output 04/22/25 04/23/25 04/23/25 22:59 06:59 14:59 Other: Weight 104.326 kg Results CBC & Chem 7: 04/22/25 21:46 04/22/25 21:46 Labs: Abnormal Lab Results - Last 24 Hours (Table) 04/22/25 04/22/25 Range/Units 21:46 21:46 RBC 4.17 L (4.40-5.60) 10*6/uL Hgb 12.7 L (13.0-17.0) g/dL Hct 38.1 L (39.6-50.0) % MPV 9.2 L (9.5-12.2) fL Eosinophils # 0.03 L (0.04-0.35) 10*3/uL Potassium 3.4 L (3.5-5.1) mmol/L Glucose 120 H (74-99) mg/dL Calcium 8.0 L (8.4-10.2) mg/dL
[2025-04-23] MEDS: NAPROXEN 250 MG TAB PO SCH (18:31)
[2025-04-23] MEDS: PREGABALIN 100 MG CAP PO SCH (22:04)
[2025-04-23] MEDS: ATORVASTATIN 80 MG TAB PO SCH (22:04)
[2025-04-23] MEDS: PRAMIPEXOLE 0.5 MG TAB PO SCH (22:47)
[2025-04-23] MEDS: diazePAM 5 MG TAB PO STA (22:47)
[2025-04-23] MEDS: ACETAMINOPHEN TAB 325 MG TAB PO PRN (22:47)
[2025-04-24 08:50] LABS: Glucose 151 mg/dL (74-99); Sodium 136 mmol/L (137-145)
[2025-04-24 08:51] LABS: African American GFR (CKD) >90 (>60 ml/min/1.73 sqM); Anion Gap 7 mmol/L; Blood Urea Nitrogen 19 mg/dL (9-20); Calcium 9.2 mg/dL (8.4-10.2); Carbon Dioxide 29 mmol/L (22-30); Chloride 100 mmol/L (98-107); Non-African American GFR(CKD) >90 (>60 ml/min/1.73 sqM); Potassium 3.6 mmol/L (3.5-5.1)
[2025-04-24] MEDS: HYDROcodone/APAP 5-325MG 1 EACH TAB PO PRN (09:18)
[2025-04-24] MEDS: SODIUM HYPOCHLORITE 0.25% 480 ML BOT MISCELLANE SCH (10:43)
--- NOTE | 2025-04-24 11:47 | P.PN ---
Subjective Progress Note Date: 04/24/25 Principal diagnosis: Headache Patient seen and examined today as a follow-up. He continues to complain of headache. States the naproxen is not improving his pain. Reports still having blurred vision out of his left eye. Sed rate was elevated at 46. He was started on prednisone 60 mg daily. Patient denies any other focal deficit. He does state that he feels like there is a tingling burning sensation along his left side of his head. He cannot recall if he has had the shingles vaccine or not in the past. Objective - Vital Signs Vital signs: Vital Signs Temp 98.0 F 04/24/25 03:25 Pulse 54 L 04/24/25 03:25 Resp 18 04/24/25 03:25 BP 168/81 04/24/25 03:25 Pulse Ox 94 L 04/24/25 03:25 FiO2 Intake & Output 04/23/25 04/24/25 04/24/25 18:59 06:59 18:59 Intake Total 10 Balance 10 Weight 98.9 kg Intake: IV 10 0.9 10 Other: Voiding Method Toilet Urinal # Voids 3 1 - Exam General appearance: The patient is alert, oriented, appears in no acute distress. HET: Head is normocephalic and atraumatic. Pupils are equal and reactive. Patient has tenderness to palpation along left temporal and forehead. Neck: Supple. Abdomen: Soft, nondistended. Extremities: Normal skin color and turgor. Neurological: No focal deficits. Strength and sensation are grossly intact. - Labs CBC & Chem 7: 04/22/25 21:46 04/24/25 08:03 Labs: Abnormal Lab Results - Last 24 Hours (Table) 04/23/25 04/24/25 Range/Units 10:12 08:03 ESR 46 H (0-20) mm/Hr Sodium 136 L (137-145) mmol/L Glucose 151 H (74-99) mg/dL Assessment and Plan Assessment: 1. Right vertebral artery stenosis 2. Headache 3. Blurred vision 4. Elevated sed rate 5. Coronary artery disease status post multiple cardiac stents 6. Hyperlipidemia 7. Hypertension 8. Dementia Plan: 1. Possible temporal artery biopsy tomorrow, tentatively scheduled awaiting OR availability. This can also be done as an outpatient if needed 2. Patient was started on prednisone 60 mg daily per neurology 3. MRI ordered per neurology, pending 4. Consider possible shingles/herpes simplex virus as patient is describing pain as a burning/tingling sensation. Will defer to medical team/neurology. 5. Continue with pain management. [place] ordered. Rest of pain management per primary medical team. 6. Hold Plavix for possible temporal artery biopsy 7. There is no indication for any vascular surgical intervention for right vertebral artery occlusion 8. Continue with workup and recommendations from neurology Thank you for this consultation, we will continue to follow. The impression and plan of care has been dictated as directed. Dr. Lee I performed a history and examination of this patient, discussed the same with the dictator. I agree with the dictator's note ,documented as a scribe. Any additional findings or plans will be noted.
--- NOTE | 2025-04-24 14:41 | P.PN ---
Subjective Progress Note Date: 04/24/25 I am following up with the patient and he feels about the same even with p.o. steroids that was started yesterday. He continues to have mild blurry vision over the left eye. Denies any worsening of his symptoms. He states he is having pain with a burning sensation over the left side of his head. Objective - Vital Signs Vital signs: Vital Signs Temp 97.7 F 04/24/25 08:00 Pulse 54 L 04/24/25 08:00 Resp 17 04/24/25 08:00 BP 151/83 04/24/25 08:00 Pulse Ox 95 04/24/25 08:00 FiO2 Intake & Output 04/23/25 04/24/25 04/24/25 18:59 06:59 18:59 Intake Total 10 Balance 10 Weight 98.9 kg Intake: IV 10 0.9 10 Other: Voiding Method Toilet Urinal # Voids 3 1 - Exam GENERAL: The patient is lying in bed and is mild acute distress. HENT: Tender to touch over the left temporal region. NEUROLOGICAL: Higher mental function: The patient is awake, alert, oriented to self, place and time. Patient is following commands. No aphasia and no neglect. Cranial nerves: The pupils are round, equal and reactive to light and accom modation. Visual el are full to confrontation throughout. Extraocular movement is intact no nystagmus is noted. Facial sensation is normal to touch throughout. The facial strength is normal throughout. Hearing is normal bilaterally to hand rub. Tongue is midline and moved [id number] without any difficulty. No dysarthria is noted. Shoulder shrug is normal bilaterally. Motor: The strength is 5 over 5 throughout. Normal tone and bulk. Cerebellum: Normal finger to nose bilaterally. Sensation: Sensation is normal to touch throughout. Reflexes (right/left): 2+ throughout. Plantars are mute bilaterally. Some of the workup during this hospital visit consisted of: Patient is afebrile wbc within normal limits ESR 46 I reviewed the rest of the lab workup CT of the head is reported as no evidence of acute intracranial pathology. I personally reviewed the CT and agree with the report CT angiography of the head is reported as there is a loss of enhancement of the proximal terminus segment of the right vertebral artery with distal recanalization. Recommend MRI of the brain for further evaluation - Labs CBC & Chem 7: 04/22/25 21:46 04/24/25 08:03 Labs: Abnormal Lab Results - Last 24 Hours (Table) 04/23/25 04/24/25 Range/Units 10:12 08:03 ESR 46 H (0-20) mm/Hr Sodium 136 L (137-145) mmol/L Glucose 151 H (74-99) mg/dL Assessment and Plan Assessment: This is a 70-year-old gentleman with new onset severe headache and its predominantly over the left temporal and he has been having headaches since this past with some blurry vision of the left eye. ESR is 46 Left side of the headache with some blurred vision as well as feels there is a burning sensation over the left head today unknown exact etiology rule out temporal arteritis but the ESR is not significantly elevated versus shingles--on steroids 60 mg daily on 04/23/2025 and so far no improvement in symptoms History of coronary artery disease and had 7 stents History of neuropathy History of hypertension Chronic back pain Plan: Continue prednisone 60 mg daily. Recommend strict glucose control and will defer that management to the primary team as well as GI prophylaxis. Pending biopsy of left temporal artery and possibly scheduled tomorrow. Pending MRI of the brain. Patient was started on Lyrica 100 mg twice a day by the vascular surgery team. Will defer the rest of the medical management to primary other specialist The plan discussed with the patient and primary team. Time with Patient: Less than 30
--- NOTE | 2025-04-24 18:43 | P.PN ---
Progress Note - Text Progress Note Date: 04/24/25 Chief Complaint: Left-sided severe headache Very pleasant 70-year-old patient of Dr. Gutierrez. Chronic medical conditions include some cognitive impairment, GERD, hyperlipidemia, hypertension, early Parkinson's versus essential tremor, , obstructive sleep apnea does not use CPAP, irritable bowel syndrome, BPH hiatal hernia. coronary artery disease with stent. Paroxysmal atrial fibrillation. Has had cardioversion. He was in the ER this morning. Since last that is 6 days ago patient with severe headache on the left f temporal side. Does radiate to the top of the head. He had some blurry vision to the left eye. Feels generalized weakness. No focal weakness. No nausea vomiting feels tired. Patient did go to [facility] where he had a CT scan that was negative. Patient received Dilaudid here. Still pain is present. Photophobia. No neck stiffness. Patient is accompanied by the son at the bedside. April 24: Patient still having pain on the left temporal area. That extends over to the scalp on the right side too. Very slight discomfort of the eye. No injection of the conjunctiva. I was informed by Dr. Pulido from vascular that that no surgical slots available through Monday. Also got a message through the nurse that Dr. Arevalo will see the patient as an outpatient. Patient remains on prednisone. Patient's ER came back slightly elevated. But CRP was negative. Which is more sensitive for GCA.. MRI pending. Oral intake fair Active Medications Acetaminophen (Acetaminophen Tab 325 Mg Tab) 650 mg PO Q6HR PRN PRN Reason: Mild Pain or Fever > 100.5 Last Admin: 04/24/25 17:48 Dose: 650 mg Hydrocodone Bitart/Acetaminophen (Hydrocodone/Apap 5-325mg 1 Each Tab) 1 each PO Q4HR PRN PRN Reason: Pain Last Admin: 04/24/25 14:50 Dose: 1 each Amiodarone HCl (Amiodarone 100 Mg Tab) 100 mg PO DAILY [facility] Last Admin: 04/24/25 09:46 Dose: 100 mg Amlodipine Besylate (Amlodipine 2.5 Mg Tab) 2.5 mg PO DAILY [facility] Last Admin: 04/24/25 09:03 Dose: 2.5 mg Atorvastatin Calcium (Atorvastatin 80 Mg Tab) 80 mg PO HS [facility] Last Admin: 04/23/25 22:04 Dose: 80 mg Furosemide (Furosemide 40 Mg Tab) 40 mg PO DAILY [facility] Last Admin: 04/24/25 09:02 Dose: 40 mg Losartan Potassium (Losartan 50 Mg Tab) 100 mg PO DAILY [facility] Last Admin: 04/24/25 09:02 Dose: 100 mg Memantine (Memantine 10 Mg Tab) 10 mg PO BID [facility] Last Admin: 04/24/25 09:02 Dose: 10 mg Metoprolol Succinate (Metoprolol Succinate (Er) 50 Mg Tab.Er.24h) 50 mg PO DAILY [facility] Last Admin: 04/24/25 09:28 Dose: Not Given Naloxone HCl (Naloxone 0.4 Mg/Ml 1 Ml Vial) 0.2 mg IV Q2M PRN PRN Reason: Opioid Reversal Naproxen (Naproxen 250 Mg Tab) 250 mg PO TID [facility] Last Admin: 04/24/25 14:49 Dose: 250 mg Ondansetron HCl (Ondansetron 4 Mg/2 Ml Vial) 4 mg IVP Q8HR PRN PRN Reason: Nausea And Vomiting Last Admin: 04/23/25 07:42 Dose: 4 mg Pramipexole Dihydrochloride (Pramipexole 0.5 Mg Tab) 1.5 mg PO HS [facility] Last Admin: 04/23/25 22:47 Dose: 1.5 mg Prednisone (Prednisone 20 Mg Tab) 60 mg PO DAILY [facility] Last Admin: 04/24/25 09:02 Dose: 60 mg Pregabalin (Pregabalin 100 Mg Cap) 100 mg PO BID [facility] Primidone (Primidone 50 Mg Tab) 150 mg PO DAILY [facility] Last Admin: 04/24/25 09:03 Dose: 150 mg Sertraline HCl (Sertraline 100 Mg Tab) 200 mg PO DAILY [facility] Last Admin: 04/24/25 09:03 Dose: 200 mg Tamsulosin HCl (Tamsulosin 0.4 Mg Cap.Er.24h) 0.8 mg PO DAILY [facility] Last Admin: 04/24/25 09:03 Dose: 0.8 mg Social history: lives with no smoking. Stopped drinking alcohol in 2004. Prior to that used to drink every day On examination: VITAL SIGNS: 98.2, 62, 20, 140 x 78, 93% room air GENERAL APPEARANCE: BMI 29.5,, resting in bed HEENT: Normal external appearance of nose and ear. Oral cavity normal. Some tenderness in the left f temporal area. No obvious rash EYES: Pupils equal. Conjunctiva normal. NECK: JVD not raised. Mass not palpable. RESPIRATORY: Respiratory effort increased, diminished breath sounds, CARDIOVASCULAR: First second sound normal, no edema. ABDOMEN: Soft. Liver and spleen not palpable. No tenderness. No mass palpable. PSYCHIATRY: Alert and oriented x3. Mood and affect anxious NEUROLOGICAL: Cranial nerves grossly intact per sensation grossly intact. Power sensation grossly intact INVESTIGATIONS, reviewed in the clinical context: darlin 3: White count 6.9 hemoglobin 12 platelet 185 sodium 138 potassium 3.4 creatinine 0.85 CRP less than 0.5 TSH 3.5 Brain CTA: Loss of enhancement of the proximal terminal segment of the right vertebral artery with distal recanalization. CT brain: No acute there is remote ischemic injury of the left capsular and right thalamus. Encephalomalacia and gliosis. Previous investigations: 2D echocardiogram [May 2024] EF 55 to 60%. Mild TR, AR, MR. Assessment and plan: -Severe cephalgia and more localized to the left temporal area. Now present for 6 days. Some blurry vision of the left eye. Differential does include giant cell arteritis. Patient has a CRP that is less than 0.5 which is rather sensitive.'s of GCA rather unlikely. But given the presentation would not completely rule out the diagnosis. Patient will need a biopsy of the temporal artery. Prednisone 60 mg a day. Being followed by Dr. MART from neurology. Vascular unable to do temporal biopsy because of scheduling issues. Dr. Carlson from ophthalmology will see the patient outpatient -Persistent atrial fibrillation with prior cardioversion And amiodarone. Pradaxa. Toprol-XL -Chronic hypoxic respiratory failure Patient does use 1 to 2 L oxygen at home more as needed. -Coronary artery disease with prior history of stent Lipitor. Pradaxa Toprol-XL -GERD Tums when necessary -Hyperlipidemia Lipitor -Essential hypertension Amlodipine. Toprol-XL -BPH, with bladder outflow obstruction Flomax -Obstructive sleep apnea does not use CPAP -Early Parkinson disorder with tremors Mirapex, primidone -Mild cognitive impairment Namenda -Irritable bowel syndrome -Bipolar depression Zoloft, -Full code Discussed with the patient. Await MRI Past Medical History Past Medical History: Atrial Fibrillation, Coronary Artery Disease (CAD), Chest Pain / Angina, Heart Failure, Dementia, GERD/Reflux, Hyperlipidemia, Hypertension, Memory Impairment, Myocardial Infarction ([place]), Neurologic Disorder, Pneumonia, Prostate Disorder, Renal Disease, Skin Disorder, Sleep Apnea/CPAP/BIPAP Additional Past Medical History / Comment(s): early parkinson's with essential tremors, "lewy body dementia"-short term memory less, R nephrolithiasis with surgery, EDITH with no CPAP, Irritable Bowel Syndrome diarrhea off and on, pneumonia/bronchitis, BPH, blood in stool-EGD/colonoscopy were normal, past hiatal hernia(sx), past falls., hx acute kidney failure; SOB with activity Last Myocardial Infarction Date:: 06/09/13 History of Any Multi-Drug Resistant Organisms: None Reported Past Surgical History: Back Surgery, Heart Catheterization, Heart Catheterization With Stent, Hernia Repair Additional Past Surgical History / Comment(s): 05/2013 stent to LAD and then a cardiac cath which showed stent patent, Recent R kidney stone removal, 03/19/15 Laparoscopic Elizabeth fundlaplication. SKIN GRAFTS CHEST & BACK FROM BASSETT AT 13 YRS OLD., COLONOSCOPY. EGD, L lazy eye surgery as toddler. c3 c4 fusion, c4 c5 fusion. Heart cath with Stent x2 RCA Dr. Hernandez 12/27/2024 Past Anesthesia/Blood Transfusion Reactions: No Reported Reaction Additional Past Anesthesia/Blood Transfusion Reaction / Comment(s): Pt received blood in 1967 without reaction. Date of Last Stent Placement:: 12/27/2024 Past Psychological History: Bipolar, Depression Smoking Status: Never smoker Past Alcohol Use History: None Reported Past Drug Use History: None Reported
[2025-04-24] MEDS: PREGABALIN 100 MG CAP PO SCH (20:02)
[2025-04-24 23:09] VITALS: TEMP 97.9
--- NOTE | 2025-04-25 09:39 | P.PN ---
Subjective Progress Note Date: 04/25/25 Principal diagnosis: Headache Patient is seen and examined today as a follow-up. States he does not have much improvement in his pain. On still describes it as a burning, prickly feeling across to his forehead top of head and around his temporal region and face. Patient now appears to have interrupted rash on the left side of his forehead and left scalp as well as face. States that the Bethany has helped his pain some at least better than the Naprosyn. Lyrica was also increased to twice a day. Surgery has been postponed to outpatient next week. Objective - Vital Signs Vital signs: Vital Signs Temp 97.9 F 04/24/25 20:00 Pulse 58 L 04/25/25 03:55 Resp 18 04/25/25 03:55 BP 169/86 04/25/25 03:55 Pulse Ox 91 L 04/25/25 03:55 FiO2 Intake & Output 04/24/25 04/25/25 04/25/25 18:59 06:59 18:59 Intake Total 225 Balance 225 Weight 98.3 kg Intake: Oral 225 Other: Voiding Method Toilet Urinal # Voids 2 1 - Exam General appearance: The patient is alert, oriented, appears in no acute distress. HET: Head is normocephalic and atraumatic. Pupils are equal and reactive. Left eye sclera red. Red raised rash over left side of forehead, top of scalp, below and around left eye. Neck: Supple. Abdomen: Soft, nondistended. Extremities: Normal skin color and turgor. Neurological: No focal deficits. Strength and sensation are grossly intact. - Labs CBC & Chem 7: 04/22/25 21:46 04/24/25 08:03 Assessment and Plan Assessment: 1. Right vertebral artery stenosis 2. Headache 3. Blurred vision 4. Rash left side forehead, top of scalp, around eye 5. Elevated sed rate 6. Coronary artery disease status post multiple cardiac stents 7. Hyperlipidemia 8. Hypertension 9. Dementia Plan: Need to consider possible herpetic neuralgia, secondary to patient describing pain as a burning prickling sensation, also involving the eye. Patient now has erupted rash on left side of forehead scalp and around eye. Defer further workup and treatment to primary medical physician and neurology. Patient brain MRI is tentatively scheduled for today. Temporal artery biopsy rescheduled as o utpatient for next week, however it is unlikely we will perform it unless strongly urged by neurology ongoing this was discussed with the patient. Lyrica was increased to twice a day, can consider increasing or change to gabapentin with higher dosing. Will defer further management to primary medical team and neurology. May resume Plavix. There is no indication for any vascular surgical intervention for the right vertebral artery occlusion. Thank you for this consultation. Vascular surgery will sign off at this time. The impression and plan of care has been dictated as directed. Dr.Cuello Max performed a history and examination of this patient, discussed the same with the dictator. I agree with the dictator's note ,documented as a scribe. Any additional findings or plans will be noted.
[2025-04-25] MEDS: CLOPIDOGREL 75 MG TAB PO SCH (11:31)
[2025-04-25] MEDS: ACYCLOVIR 800 MG TAB PO SCH (12:25)
--- NOTE | 2025-04-25 12:30 | P.PN ---
Progress Note - Text Progress Note Date: 04/25/25 Was notified that patient was seen by Dr. Summers with neurology, believes patient likely has shingles. They plan on discontinuing prednisone and starting patient on acyclovir. Patient notified that no need for temporal artery biopsy as an outpatient. Vascular surgery will sign off at this time. The impression and plan of care has been dictated as directed. Dr. Corrine Hernández I performed a history and examination of this patient, discussed the same with the dictator. I agree with the dictator's note ,documented as a scribe. Any additional findings or plans will be noted.
[2025-04-25 13:30] VITALS: RESP 16
--- NOTE | 2025-04-25 15:15 | P.PN ---
Subjective Progress Note Date: 04/25/25 I am following up with the patient and patient feels his headache is improving. He is having more relevant rash that is visible on the left side of the scalp and his left sclera is erythematous. Vascular surgery team feels this is more shingles. They do do not feel that the biopsy is needed since it is likely shingles but wanted my opinion. Objective - Vital Signs Vital signs: Vital Signs Temp 97.9 F 04/24/25 20:00 Pulse 56 L 04/25/25 12:00 Resp 16 04/25/25 12:00 BP 148/79 04/25/25 12:00 Pulse Ox 95 04/25/25 12:00 FiO2 Intake & Output 04/24/25 04/25/25 04/25/25 18:59 06:59 18:59 Intake Total 225 240 Balance 225 240 Weight 98.3 kg Intake: Oral 225 240 Other: Voiding Method Toilet Toilet Urinal Urinal # Voids 2 1 - Exam GENERAL: The patient is lying in bed and is mild acute distress. HENT: Erythematous rash over the left scalp with spot that is visible on the left scalp as well erythema of left eye NEUROLOGICAL: Higher mental function: The patient is awake, alert, oriented to self, place and time. Patient is following commands. No aphasia and no neglect. Cranial nerves: The pupils are round, equal and reactive to light and accommodation. Visual el are full to confrontation throughout. Extraocular movement is intact no nystagmus is noted. Facial sensation is normal to touch throughout. The facial strength is normal throughout. Hearing is normal bilaterally to hand rub. Tongue is midline and moved [id number] without any difficulty. No dysarthria is noted. Shoulder shrug is normal bilaterally. Motor: The strength is 5 over 5 throughout. Normal tone and bulk. Cerebellum: Normal finger to nose bilaterally. Sensation: Sensation is normal to touch throughout. Some of the workup during this hospital visit consisted of: Patient is afebrile wbc within normal limits ESR 46 I reviewed the rest of the lab workup CT of the head is reported as no evidence of acute intracranial pathology. I personally reviewed the CT and agree with the report CT angiography of the head is reported as there is a loss of enhancement of the proximal terminus segment of the right vertebral artery with distal recanalization. Recommend MRI of the brain for further evaluation - Labs CBC & Chem 7: 04/22/25 21:46 04/24/25 08:03 Assessment and Plan Assessment: This is a 70-year-old gentleman with new onset severe headache and its predominantly over the left temporal and he has been having headaches since this past with some blurry vision of the left eye. ESR is 46. During this hospital visit patient started developing erythematous with lesion over the left scalp and erythema over the left eye Seems more likely shingles especially with the scalp rash and erythema over the left eye. Less likely vasculitis such as giant cell arteritis since the ESR is not significantly elevated as well CPR is normal. Left side of the headache with some blurred vision due to above History of coronary artery disease and had 7 stents History of neuropathy History of hypertension Chronic back pain Plan: Discontinue with the prednisone Pending MRI of the brain From a neurologic perspective temporal artery biopsy is not needed. Recommend the patient to follow-up with a neurologist and metals analyst as an outpatient within 2 to 3 weeks Patient is on pregabalin 100 mg twice daily and can consider going up to 250 mg twice daily. Patient was notified that he will have pain and he will likely need pain management if has severe pain Will defer the rest of the medical management to primary other specialist The plan discussed with the patient, his son was at bedside and primary team. If MRI of the brain is unremarkable and the patient is cleared from a neurology perspective. Time with Patient: Less than 30
--- NOTE | 2025-04-25 16:09 | MR ---
EXAMINATION TYPE: MR brain wo con DATE OF EXAM: 04/25/2025 2:55 PM COMPARISON: 04/22/2025. CLINICAL INDICATION: Male, 70 years old with history of headache with some blurred vision; PHH, heada marcial with some blurred vision TECHNIQUE: Multi planar, multi sequence imaging was performed through the brain including: T1, T2, In version recovery, Diffusion weighted imaging, and gradient echo imaging. No gadolinium was given. FINDINGS: The merino-white junctions, ventricular system, basal cisterns appear unremarkable. Remote right basa l ganglia lacunar injury. No injury to the left frontal lobe. Scattered foci of high T2 signal intens ity are seen within the periventricular white matter. Midline structures show no abnormality. Diffusi on-weighted imaging shows no evidence of restricted diffusion. The susceptibility weighted images do not reveal any evidence for micro-hemorrhage. The bone marrow signal is within normal limits. Paranasal sinuses and mastoid air cells: Mild scattered paranasal sinus disease. Visualized orbits: Orbital contents are intact. IMPRESSION: 1. No evidence of intracranial mass or acute/subacute infarct. 2. Nonspecific white matter changes, likely secondary to small vessel ischemic disease. 3. Remote right basal ganglia and left frontal lobe injuries. [facility], Workstation: [facility], 04/25/2025 4:06 PM
[2025-04-25 17:36] VITALS: BP 144/84; PULSE 84
--- NOTE | 2025-04-26 20:05 | P.DS ---
Providers Date of admission: 04/23/25 02:03 Expected date of discharge: 04/25/25 Attending physician: Pierce Chakraborty Consults: 04/23/25 01:58 Consult Physician Urgent Consulting Provider: Jakob Mart Consult Reason/Comments: Vertebral artery stenosis Do you want consulting provider notified?: Yes, Notify in am 04/23/25 12:27 Consult Physician Urgent Consulting Provider: Jakob Mart Consult Reason/Comments: severe headache Do you want consulting provider notified?: Yes 04/23/25 16:27 Consult Physician Routine Consulting Provider: Maria Teresa Arevalo Consult Reason/Comments: left eye blurriness, possible GCA Do you want consulting provider notified?: Yes Primary care physician: [facility] Course: Chief Complaint: Left-sided severe headache Very pleasant 70-year-old patient of Dr. Gutierrez. Chronic medical conditions include some cognitive impairment, GERD, hyperlipidemia, hypertension, early Parkinson's versus essential tremor, , obstructive sleep apnea does not use CPAP, irritable bowel syndrome, BPH hiatal hernia. coronary artery disease with stent. Paroxysmal atrial fibrillation. Has had cardioversion. He was in the ER this morning. Since last that is 6 days ago patient with severe headache on the left f temporal side. Does radiate to the top of the head. He had some blurry vision to the left eye. Feels generalized weakness. No focal weakness. No nausea vomiting feels tired. Patient did go to [facility] where he had a CT scan that was negative. Patient received Dilaudid here. Still pain is present. Photophobia. No neck stiffness. Patient is accompanied by the son at the bedside. April 24: Patient still having pain on the left temporal area. That extends over to the scalp on the right side too. Very slight discomfort of the eye. No injection of the conjunctiva. I was informed by Dr. Pulido from vascular that that no surgical slots available through Monday. Also got a message through the nurse that Dr. Arevalo will see the patient as an outpatient. Patient remains on prednisone. Patient's ER came back slightly elevated. But CRP was negative. Which is more sensitive for GCA.. MRI pending. Oral intake fair April 25: Patient has developed a rash in the area of V1/V2. Given the significant pain it is now felt to be herpes zoster. Started on acyclovir. Discussed with Dr. MART from neurology. Steroids to be discontinued. Discussed with patient. Patient to complete a course of acyclovir. Also a Lyrica for the pain. Patient follow-up with neurology and ophthalmology outpatient. Patient has no eye conjunctiva injection. Some discomfort but no significant pain in the eye itself. Discussion and discharge planning more than 35 minutes Social history: lives with no smoking. Stopped drinking alcohol in 2004. Prior to that used to drink every day On examination: VITAL SIGNS: 97.9, 84, 16, 1 4484, 95% room air GENERAL APPEARANCE: BMI 29.5,, resting in bed HEENT: Normal external appearance of nose and ear. Oral cavity normal. Papular rash in the distribution of V1/V2. No vesicles EYES: Pupils equal. Conjunctiva normal. NECK: JVD not raised. Mass not palpable. RESPIRATORY: Respiratory effort increased, diminished breath sounds, CARDIOVASCULAR: First second sound normal, no edema. ABDOMEN: Soft. Liver and spleen not palpable. No tenderness. No mass palpable. PSYCHIATRY: Alert and oriented x3. Mood and affect anxious NEUROLOGICAL: Cranial nerves grossly intact per sensation grossly intact. Power sensation grossly intact INVESTIGATIONS, reviewed in the clinical context: April 24: Potassium 3.6 creatinine 0.71 darlin 3: White count 6.9 hemoglobin 12 platelet 185 sodium 138 potassium 3.4 creatinine 0.85 CRP less than 0.5 TSH 3.5 Brain CTA: Loss of enhancement of the proximal terminal segment of the right vertebral artery with distal recanalization. CT brain: No acute there is remote ischemic injury of the left capsular and right thalamus. Encephalomalacia and gliosis. Previous investigations: 2D echocardiogram [May 2024] EF 55 to 60%. Mild TR, AR, MR. Assessment and plan: -Acute herpes zoster in the dermatome of V1 V2. Presenting in severe pain. Rash developed prior to discharge. Initially was felt to be possible giant cell arteritis. Was on steroids. Discontinued. Placed on acyclovir - Severe cephalgia from herpes zoster. Lyrica -Persistent atrial fibrillation with prior cardioversion And amiodarone. Pradaxa. Toprol-XL -Chronic hypoxic respiratory failure Patient does use 1 to 2 L oxygen at home more as needed. -Coronary artery disease with prior history of stent Lipitor. Pradaxa Toprol-XL -GERD Tums when necessary -Hyperlipidemia Lipitor -Essential hypertension Amlodipine. Toprol-XL -BPH, with bladder outflow obstruction Flomax -Obstructive sleep apnea does not use CPAP -Early Parkinson disorder with tremors Mirapex, primidone -Mild cognitive impairment Namenda -Irritable bowel syndrome -Bipolar depression Zoloft, -Full code Disposition: Home Past Medical History Past Medical History: Atrial Fibrillation, Coronary Artery Disease (CAD), Chest Pain / Angina, Heart Failure, Dementia, GERD/Reflux, Hyperlipidemia, Hypertension, Memory Impairment, Myocardial Infarction ([place]), Neurologic Disorder, Pneumonia, Prostate Disorder, Renal Disease, Skin Disorder, Sleep Apnea/CPAP/BIPAP Additional Past Medical History / Comment(s): early parkinson's with essential tremors, "lewy body dementia"-short term memory less, R nephrolithiasis with surgery, EDITH with no CPAP, Irritable Bowel Syndrome diarrhea off and on, pneumonia/bronchitis, BPH, blood in stool-EGD/colonoscopy were normal, past hiatal hernia(sx), past falls., hx acute kidney failure; SOB with activity Last Myocardial Infarction Date:: 06/09/13 History of Any Multi-Drug Resistant Organisms: None Reported Past Surgical History: Back Surgery, Heart Catheterization, Heart Catheterization With Stent, Hernia Repair Additional Past Surgical History / Comment(s): 05/2013 stent to LAD and then a cardiac cath which showed stent patent, Recent R kidney stone removal, 03/19/15 Laparoscopic Elizabeth fundlaplication. SKIN GRAFTS CHEST & BACK FROM [place] AT 13 YRS OLD., COLONOSCOPY. EGD, L lazy eye surgery as toddler. c3 c4 fusion, c4 c5 fusion. Heart cath with Stent x2 RCA Dr. Hernandez 12/27/2024 Past Anesthesia/Blood Transfusion Reactions: No Reported Reaction Additional Past Anesthesia/Blood Transfusion Reaction / Comment(s): Pt received blood in 1967 without reaction. Date of Last Stent Placement:: 12/27/2024 Past Psychological History: Bipolar, Depression Smoking Status: Never smoker Past Alcohol Use History: None Reported Past Drug Use History: None Reported Plan - Discharge Summary Discharge Rx Participant: Yes New Discharge Prescriptions: New Acyclovir [Zovirax] 800 mg PO 5XD #35 tab Continue Memantine [Namenda] 10 mg PO BID Pramipexole Di-HCl [Mirapex] 1.5 mg PO HS Sertraline [Zoloft] 200 mg PO DAILY Primidone [Mysoline] 150 mg PO DAILY Tamsulosin [Flomax] 0.8 mg PO DAILY amLODIPine [Norvasc] 2.5 mg PO DAILY Losartan Potassium 100 mg PO DAILY Clopidogrel [Plavix] 75 mg PO DAILY Nitroglycerin Sl Tabs [Nitrostat] 0.4 mg SL Q5M PRN PRN Reason: Chest Pain Metoprolol Succinate [Toprol XL] 50 mg PO DAILY Atorvastatin [Lipitor] 80 mg PO HS Dabigatran [Pradaxa] 150 mg PO BID #60 cap Amiodarone [Cordarone] 100 mg PO DAILY Furosemide [Lasix] 40 mg PO DAILY Changed Pregabalin [Lyrica] 100 mg PO BID #60 cap Discontinued Pregabalin [Lyrica] 100 mg PO DAILY PRN PRN Reason: Pain Discharge Medication List Memantine [Namenda] 10 mg PO BID 02/17/20 [History] Pramipexole Di-HCl [Mirapex] 1.5 mg PO HS 02/17/20 [History] Sertraline [Zoloft] 200 mg PO DAILY 08/18/21 [History] Primidone [Mysoline] 150 mg PO DAILY 02/17/24 [History] Tamsulosin [Flomax] 0.8 mg PO DAILY 05/19/24 [History] Atorvastatin [Lipitor] 80 mg PO HS 11/04/24 [History] Metoprolol Succinate [Toprol XL] 50 mg PO DAILY 11/04/24 [History] Nitroglycerin Sl Tabs [Nitrostat] 0.4 mg SL Q5M PRN 11/04/24 [History] Dabigatran [Pradaxa] 150 mg PO BID #60 cap 11/05/24 [Rx] Amiodarone [Cordarone] 100 mg PO DAILY 12/25/24 [History] Clopidogrel [Plavix] 75 mg PO DAILY 04/23/25 [History] Furosemide [Lasix] 40 mg PO DAILY 04/23/25 [History] Losartan Potassium 100 mg PO DAILY 04/23/25 [History] amLODIPine [Norvasc] 2.5 mg PO DAILY 04/23/25 [History] Acyclovir [Zovirax] 800 mg PO 5XD #35 tab 04/25/25 [Rx] Pregabalin [Lyrica] 100 mg PO BID #60 cap 04/25/25 [Rx] Follow up Appointment(s)/Referral(s): Román Gutierrez DO [Primary Care Provider] - 1-2 days Maria Teresa Arevalo MD [STAFF PHYSICIAN] - 1-2 Days Jakob Ruggiero MD [STAFF PHYSICIAN] - 1 Week Discharge Disposition: HOME WITH HOME HEALTH SERVICES
== END 2025-04-25 17:06 | disposition home health service (06) ==
LOC: EC 20:39 → 3SCARD 04-23 02:03
PROVIDERS: ADMIT Hospitalist; ATTEND Hospitalist
DX: B02.9 Zoster without complications (principal); I65.01 Occlusion and stenosis of right vertebral artery; I48.19 Other persistent atrial fibrillation; J96.11 Chronic respiratory failure with hypoxia; I25.10 Atherosclerotic heart disease of native coronary artery without angina pectoris; K21.9 Gastro-esophageal reflux disease without esophagitis; I25.2 Old myocardial infarction; I11.0 Hypertensive heart disease with heart failure; I50.9 Heart failure, unspecified; G20.A1 Parkinson's disease without dyskinesia, without mention of fluctuations; G25.0 Essential tremor; G31.83 Neurocognitive disorder with Lewy bodies; F02.83 Dementia in other diseases classified elsewhere, unspecified severity, with mood disturbance; F31.30 Bipolar disorder, current episode depressed, mild or moderate severity, unspecified; E78.5 Hyperlipidemia, unspecified; G47.33 Obstructive sleep apnea (adult) (pediatric); G89.29 Other chronic pain; K58.9 Irritable bowel syndrome, unspecified; N40.1 Benign prostatic hyperplasia with lower urinary tract symptoms; N32.0 Bladder-neck obstruction; K44.9 Diaphragmatic hernia without obstruction or gangrene; Z79.01 Long term (current) use of anticoagulants; Z79.02 Long term (current) use of antithrombotics/antiplatelets; Z79.82 Long term (current) use of aspirin; Z79.899 Other long term (current) drug therapy; Z95.5 Presence of coronary angioplasty implant and graft
CPT/HCPCS: 96376; 96375 ×2; 96374; 99285; 36415; 80053; 80048; 85652; 84443; 85025; 85610; 85730; 86140; 70496; 70450; 70551; G0378 ×3; J2270; J2405; J1171; J7512 ×3; Q9967; J2919

== ENCOUNTER 2025-04-26 20:56 | Emergency (ER) | payer MEDICARE ==
[2025-04-26 21:05] VITALS: TEMP 99.2
--- NOTE | 2025-04-26 21:39 | ED ---
General Adult HPI - General Chief complaint: Eye Problems Stated complaint: fever swollen eye-shingles Time Seen by Provider: 04/26/25 21:09 Source: patient Mode of arrival: ambulatory Limitations: no limitations - History of Present Illness Initial comments: Dictation was produced using [employer] dictation software. please excuse any grammatical, word or spelling errors. Chief Complaint: 70-year-old male with left eye symptoms History of Present Illness: Patient 70-year-old male was recently admitted to the emergency department for left eye issues. He was diagnosed with herpes zoster of the face. Patient was instructed that should his eye acutely worsen he should return to the emergency department. Since being discharged today states that his eye became swollen to the point became swollen shut. States that on Monday has an appointment ophthalmology The ROS documented in this emergency department record has been reviewed and confirmed by me. Those systems with pertinent positive or negative responses have been documented in the HPI. All other systems are other negative and/or noncontributory. - Related Data Home Medications Medication Instructions Recorded Confirmed Memantine [Namenda] 10 mg PO BID 02/17/20 04/23/25 Pramipexole Di-HCl [Mirapex] 1.5 mg PO HS 02/17/20 04/23/25 Sertraline [Zoloft] 200 mg PO DAILY 08/18/21 04/23/25 Primidone [Mysoline] 150 mg PO DAILY 02/17/24 04/23/25 Tamsulosin [Flomax] 0.8 mg PO DAILY 05/19/24 04/23/25 Atorvastatin [Lipitor] 80 mg PO HS 11/04/24 04/23/25 Metoprolol Succinate [Toprol XL] 50 mg PO DAILY 11/04/24 04/23/25 Nitroglycerin Sl Tabs [Nitrostat] 0.4 mg SL Q5M PRN 11/04/24 04/23/25 Amiodarone [Cordarone] 100 mg PO DAILY 12/25/24 04/23/25 Clopidogrel [Plavix] 75 mg PO DAILY 04/23/25 04/23/25 Furosemide [Lasix] 40 mg PO DAILY 04/23/25 04/23/25 Losartan Potassium 100 mg PO DAILY 04/23/25 04/23/25 amLODIPine [Norvasc] 2.5 mg PO DAILY 04/23/25 04/23/25 Previous Rx's Medication Instructions Recorded Dabigatran [Pradaxa] 150 mg PO BID #60 cap 11/05/24 Acyclovir [Zovirax] 800 mg PO 5XD #35 tab 04/25/25 Pregabalin [Lyrica] 100 mg PO BID #60 cap 04/25/25 Allergies Allergy/AdvReac Type Severity Reaction Status Date / Time No Known Allergies Allergy Verified 04/26/25 21:04 Review of Systems ROS Statement: Those systems with pertinent positive or pertinent negative responses have been documented in the HPI. ROS Other: All systems not noted in ROS Statement are negative. Past Medical History Past Medical History: Atrial Fibrillation, Coronary Artery Disease (CAD), Chest Pain / Angina, Heart Failure, Dementia, GERD/Reflux, Hyperlipidemia, Hypertension, Memory Impairment, Myocardial Infarction (AK), Neurologic Diso rder, Pneumonia, Prostate Disorder, Renal Disease, Skin Disorder, Sleep Apnea/CPAP/BIPAP Additional Past Medical History / Comment(s): early parkinson's with essential tremors, "lewy body dementia"-short term memory less, R nephrolithiasis with surgery, EDITH with no CPAP, Irritable Bowel Syndrome diarrhea off and on, pneumonia/bronchitis, BPH, blood in stool-EGD/colonoscopy were normal, past hiatal hernia(sx), past falls., hx acute kidney failure; SOB with activity Last Myocardial Infarction Date:: 06/09/13 History of Any Multi-Drug Resistant Organisms: None Reported Past Surgical History: Back Surgery, Heart Catheterization, Heart Catheterization With Stent, Hernia Repair Additional Past Surgical History / Comment(s): 05/2013 stent to LAD and then a cardiac cath which showed stent patent, Recent R kidney stone removal, 03/19/15 Laparoscopic Elizabeth fundlaplication. SKIN GRAFTS CHEST & BACK FROM BASSETT AT 13 YRS OLD., COLONOSCOPY. EGD, L lazy eye surgery as toddler. c3 c4 fusion, c4 c5 fusion. Heart cath with Stent x2 RCA Dr. Hernandez 12/27/2024 Past Anesthesia/Blood Transfusion Reactions: No Reported Reaction Additional Past Anesthesia/Blood Transfusion Reaction / Comment(s): Pt received blood in 1967 without reaction. Date of Last Stent Placement:: 12/27/2024 Past Psychological History: Bipolar, Depression Smoking Status: Never smoker Past Alcohol Use History: None Reported Past Drug Use History: None Reported - Past Family History Mother Family Medical History: Liver Disease Additional Family Medical History / Comment(s): Mother was an alcoholic. She of cirrhosis of the liver at age 60yrs. Father Family Medical History: Cancer, Coronary Artery Disease (CAD), Myocardial Infarction (AK) Additional Family Medical History / Comment(s): SKIN CA. Father of a AK at age 65 yrs. Brother(s) Family Medical History: Cancer Additional Family Medical History / Comment(s): LEUKEMIA, LYMPH NODE CA AND MULTIPLE MYELOMA. General Exam - General Exam Comments Initial Comments: PHYSICAL EXAM: General Impression: Alert and oriented x3, not in acute distress HEENT: Left eye chemosis, conjunctivitis and swelling of the left eyelids, extra-ocular movements intact, pupils equal and reactive to light bilaterally, mucous membranes moist. Cardiovascular: Heart regular rate and rhythm Chest: Able to complete full sentences, no retractions, no tachypnea Abdomen: abdomen soft, non-tender, non-distended, no organomegaly Musculoskeletal: Pulses present and equal in all extremities, no peripheral edema Motor: no focal deficits noted Neurological: CN II-XII grossly intact, no focal motor or sensory deficits noted Skin: Intact with no visualized rashes Psych: Normal affect and mood Limitations: no limitations Course Vital Signs 04/26/25 04/26/25 21:01 21:44 Temperature 99.2 F Pulse Rate 87 71 Respiratory 18 20 Rate Blood Pressure 143/84 153/101 O2 Sat by Pulse 94 L 90 L Oximetry - Reevaluation(s) Reevaluation #1: 04/26/25 21:[address] Chakraborty states that he would recommend patient be transferred to higher level of care were there is ophthalmology coverage inpatient. He did specifically recommend [facility]. Discussed these recommendations by Dr. Chakraborty with the patient who requested transfer to closest hospital for convenience Reevaluation #2: 04/26/25 22:19 Case discussed in detail with Dr. Campbell, ophthalmology at [facility]. Dr. Campbell did not feel that patient clinical presentation did not meet criteria for ER transfer. Case was discussed in detail including clinical presentation, physical examination and recent hospital stay. Recommended patient be discharged with prednisone acetate drops, ketorolac eyedrops and erythromycin ointment and along with oral p.o. analgesics. Medical Decision Making - Medical Decision Making Was pt. sent in by a medical professional or institution (, PA, [employer]CTOR, urgent care, hospital, or [place] health care facility...) When possible be specific @ -No Did you speak to anyone other than the patient for history (EMS, parent, family, police, friend...)? What history was obtained from this source @ -No Did you review nursing and triage notes (agree or disagree)? Why? @ -I reviewed and agree with nursing and triage notes Were old charts reviewed (outside hosp., previous admission, EMS record, old EKG, old radiological studies, urgent care reports/EKG's, [place] health care facility records)? Report findings @ -Documentation from previous admission was reviewed including neurology and discharge summary notes Differential Diagnosis (chest pain, altered mental status, abdominal pain women, abdominal pain men, vaginal bleeding, musculoskeletal, weakness, fever, dyspnea, syncope, headache, dizziness, GI bleed, back pain, seizure, CVA, palpatations, mental health)? @ -Not applicable EKG interpreted by me (3pts min.). @ -None done X-rays interpreted by me (1pt min.). @ -None done CT interpreted by me (1pt min.). @ -None done U/S interpreted by me (1pt. min.). @ -None done What testing was considered but not performed or refused? (CT, X-rays, U/S, labs)? Why? @ -None What meds were considered but not given or refused? Why? @ -None Was smoking cessation discussed for >3mins.? @ -No Were there social determinants of health that impacted care today? How? (Homelessness, low income, unemployed, alcoholism, drug addiction, transportation, low edu. Level, literacy, decrease access to med. care, penitentiary, rehab)? @ -No Was there de-escalation of care discussed even if they declined (Discuss DNR or withdrawal of care, Hospice)? DNR status @ -No What co-morbidities impacted this encounter? (DM, HTN, Smoking, COPD, CAD, Cancer, CVA, ARF, Chemo, Hep., AIDS, mental health diagnosis, sleep apnea, morbid obesity)? @ -None Was patient admitted / discharged? Hospital course, mention meds given and route, prescriptions, significant lab abnormalities, going to OR and other pertinent info. @ -70-year-old male discharged earlier today for herpes zoster ophthalmicus presents to the ER for worsening eye symptoms. We do not have ophthalmology coverage and admitting doctor requested transfer to hospital that contains ophthalmology. Did speak with Moisés Butcher. Spoke with insole and heel stiffener as described above. Patient will be prescribed eyedrops analgesics. He does already have a ophthalmology appointment on Monday. Did you discuss the management of the patient with other professionals (professionals i.e. , PA, [employer]CTOR, lab, RT, psych nurse, social media designer, physics technical officer, teacher, corporate ethics officer, manager of case management)? Give summary @ -See above Was critical care preformed (if so, how long)? @ -No Undiagnosed new problem with uncertain prognosis? @ -No Drug Therapy requiring intensive monitoring for toxicity (Heparin, Nitro, Insulin, Cardizem)? @ -No Were any procedures done? @ -No Diagnosis/symptom? Acute, or Chronic, or Acute on Chronic? Uncomplicated (without systemic symptoms) or Complicated (systemic symptoms)? @ -Herpes zoster opthalmicus Side effects of treatment? @ -No Exacerbation, Progression, or Severe Exacerbation? @ -No Poses a threat to life or bodily function? How? (Chest pain, USA, AK, pneumonia, PE, COPD, DKA, ARF, appy, cholecystitis, CVA, Diverticulitis, Homicidal, Suicidal, threat to staff... and all critical care pts) @ -yes Disposition Clinical Impression: Herpes zoster ophthalmicus Disposition: HOME SELF-CARE Condition: Fair Instructions (If sedation given, give patient instructions): Shingles (ED) Additional Instructions: Follow-up with ophthalmology on Monday as initially planned. You are prescribed 2 eyedrops and eye ointment. You are to use both eyedrops 4 times daily. Erythromycin ointment you can use at night. With the ketorolac eyedrops it initially will cause some burning sensation that should only last seconds. Is patient prescribed a controlled substance at d/c from ED?: No Referrals: Román Gutierrez DO [Primary Care Provider] - 1-2 days Time of Disposition: 22:33
[2025-04-26 21:45] VITALS: BP 153/101; PULSE 71; RESP 20
[2025-04-26] MEDS: prednisoLONE ACETATE 1% OPHTH DROPS 5 ML BTL LEFT EYE STA (22:40)
[2025-04-26] MEDS: ACET/COD 300 MG/30 MG STARTER PACK 6 TAB BTL PO STA (22:40)
[2025-04-26] MEDS: KETOROLAC 0.5% OPHTH DROPS 5 ML BTL LEFT EYE STA (22:40)
[2025-04-26] MEDS: ERYTHROMYCIN 5 MG/GM OPHTH OINT 3.5 GM TUBE LEFT EYE STA (22:41)
== END 2025-04-26 22:57 | disposition home or self-care (01) ==
LOC: EC 20:56
DX: B02.30 Zoster ocular disease, unspecified (principal)
CPT/HCPCS: 99283

== ENCOUNTER 2025-05-02 20:44 | Emergency (ER) | payer MEDICARE ==
[2025-05-02 20:53] VITALS: TEMP 99.2
--- NOTE | 2025-05-02 21:07 | ED ---
Chest Pain HPI - General Chief Complaint: Chest Pain Stated Complaint: Chest pain, shingles Time Seen by Provider: 05/02/25 21:04 Source: EMS Mode of arrival: EMS - History of Present Illness Initial Comments: This patient is a 70-year-old man who arrives here by ambulance to have evaluation for a number of symptoms. The patient states that he was just released from the hospital where he had been admitted for headache and subsequently developed herpes zoster outbreak to the left first trigeminal nerve area. The patient states that the pain was flaring tonight and that he also then subsequently noticed heart palpitations and some left-sided chest pain. He did not have any associated symptoms. The patient called EMS who transported him here. In addition he was given aspirin, nitroglycerin and ondansetron. MD Complaint: chest pain Onset/Timin -: hour(s) Onset: during rest Pain Location: left chest Pain Radiation: none Severity: mild Quality: dull Consistency: constant Improves With: nothing Worsens With: nothing Anginal Symptoms: nausea Treatments Prior to Arrival: aspirin, nitroglycerin, other - Related Data Home Medications Medication Instructions Recorded Confirmed Memantine [Namenda] 10 mg PO BID 02/17/20 05/05/25 Pramipexole Di-HCl [Mirapex] 1.5 mg PO HS 02/17/20 05/05/25 Primidone [Mysoline] 150 mg PO DAILY 02/17/24 05/05/25 Tamsulosin [Flomax] 0.8 mg PO DAILY 05/19/24 05/05/25 Atorvastatin [Lipitor] 80 mg PO HS 11/04/24 05/05/25 Metoprolol Succinate [Toprol XL] 50 mg PO DAILY 11/04/24 05/05/25 Nitroglycerin Sl Tabs [Nitrostat] 0.4 mg SL Q5M PRN 11/04/24 05/05/25 Amiodarone [Cordarone] 100 mg PO DAILY 12/25/24 05/05/25 Clopidogrel [Plavix] 75 mg PO DAILY 04/23/25 05/05/25 Losartan Potassium 100 mg PO DAILY 04/23/25 05/05/25 amLODIPine [Norvasc] 2.5 mg PO DAILY 04/23/25 05/05/25 Cephalexin [Keflex] 500 mg PO Q12HR 05/05/25 05/05/25 Moxifloxacin HCl [Moxifloxacin 1 drop LEFT EYE QID 05/05/25 05/05/25 0.5%] valACYclovir HCL [Valtrex] 1,000 mg PO TID 05/05/25 05/05/25 Previous Rx's Medication Instructions Recorded Dabigatran [Pradaxa] 150 mg PO BID #60 cap 11/05/24 oxyCODONE HCL/ACETAMINOPHEN 1 tab PO Q4HR PRN 3 Days #18 tab 05/04/25 [Percocet 10-325 mg] Pregabalin [Lyrica] 100 mg PO TID #60 cap 05/07/25 QUEtiapine [SEROquel] 50 mg PO HS #30 tab 05/07/25 Sertraline [Zoloft] 250 mg PO DAILY #90 tab 05/07/25 Allergies Allergy/AdvReac Type Severity Reaction Status Date / Time No Known Allergies Allergy Verified 05/11/25 08:01 Review of Systems ROS Statement: Those systems with pertinent positive or pertinent negative responses have been documented in the HPI. ROS Other: All systems not noted in ROS Statement are negative. Constitutional: Denies: fever, chills Eyes: Denies: eye pain, vision change Respiratory: Denies: cough, dyspnea Cardiovascular: Reports: chest pain, palpitations Gastrointestinal: Reports: nausea. Denies: abdominal pain, vomiting Genitourinary: Denies: dysuria, hematuria Musculoskeletal: Denies: back pain Skin: Reports: rash Neurological: Reports: headache. Denies: weakness, numbness, confusion Psychiatric: Denies: anxiety EKG Findings - EKG Results: EKG: interpreted by ERMD, sinus rhythm (Rate 71 bpm), normal QRS, normal ST/T - Blocks, [place], Hypertrophy, ST Abn: QRS axis and voltage: left axis deviation (-30 to -90) (Borderline) Past Medical History Past Medical History: Atrial Fibrillation, Coronary Artery Disease (CAD), Chest Pain / Angina, Heart Failure, Dementia, GERD/Reflux, Hyperlipidemia, Hypertension, Memory Impairment, Myocardial Infarction (PA), Neurologic Disorder, Pneumonia, Prostate Disorder, Renal Disease, Skin Disorder, Sleep Apnea/CPAP/BIPAP Additional Past Medical History / Comment(s): early parkinson's with essential tremors, "lewy body dementia"-short term memory less, R nephrolithiasis with surgery, EDITH with no CPAP, Irritable Bowel Syndrome diarrhea off and on, pneumonia/bronchitis, BPH, blood in stool-EGD/colonoscopy were normal, past hiatal hernia(sx), past falls., hx acute kidney failure; SOB with activity Last Myocardial Infarction Date:: 06/09/13 History of Any Multi-Drug Resistant Organisms: None Reported Past Surgical History: Back Surgery, Heart Catheterization, Heart Catheterization With Stent, Hernia Repair Additional Past Surgical History / Comment(s): 05/2013 stent to LAD and then a cardiac cath which showed stent patent, Recent R kidney stone removal, 03/19/15 Laparoscopic Elizabeth fundlaplication. SKIN GRAFTS CHEST & BACK FROM BASSETT AT 13 YRS OLD., COLONOSCOPY. EGD, L lazy eye surgery as toddler. c3 c4 fusion, c4 c5 fusion. Heart cath with Stent x2 RCA Dr. Hernandez 12/27/2024 Past Anesthesia/Blood Transfusion Reactions: No Reported Reaction Additional Past Anesthesia/Blood Transfusion Reaction / Comment(s): Pt received blood in 1967 without reaction. Date of Last Stent Placement:: 12/27/2024 Past Psychological History: Bipolar, Depression Smoking Status: Never smoker Past Alcohol Use History: None Reported Past Drug Use History: None Reported - Past Family History Mother Family Medical History: Liver Disease Additional Family Medical History / Comment(s): Mother was an alcoholic. She of cirrhosis of the liver at age 60yrs. Father Family Medical History: Cancer, Coronary Artery Disease (CAD), Myocardial Infarction (PA) Additional Family Medical History / Comment(s): SKIN CA. Father of a PA at age 65 yrs. Brother(s) Family Medical History: Cancer Additional Family Medical History / Comment(s): LEUKEMIA, LYMPH NODE CA AND MULTIPLE MYELOMA. General Exam General appearance: alert, in no apparent distress Head exam: Present: atraumatic, normocephalic Eye exam: Present: normal appearance. Absent: scleral icterus, conjunctival injection ENT exam: Present: normal oropharynx Neck exam: Present: normal inspection, full ROM. Absent: tenderness Respiratory exam: Present: normal lung sounds bilaterally. Absent: respiratory distress, wheezes, rales, rhonchi, stridor, accessory muscle use Cardiovascular Exam: Present: regular rate, normal rhythm, normal heart sounds. Absent: systolic murmur, diastolic murmur, rubs, gallop GI/Abdominal exam: Present: soft. Absent: distended, tenderness, guarding, rebound, rigid, mass Extremities exam: Present: normal inspection, normal capillary refill. Absent: pedal edema, calf tenderness Back exam: Present: normal inspection. Absent: CVA tenderness (R), CVA tenderness (L) Neurological exam: Present: alert Skin exam: Present: warm, dry, rash Course Vital Signs 05/02/25 05/03/25 05/03/25 20:49 01:14 04:53 Temperature 99.2 F Pulse Rate 72 64 68 Respiratory 18 20 18 Rate Blood Pressure 120/85 146/95 128/74 O2 Sat by Pulse 91 L 91 L 93 L Oximetry Chest Pain MDM - MDM The patient had chest x-ray that I interpreted as negative for acute infiltrate, pneumothorax, congestive heart failure. The patient does have prescription ophthalmic drops from Dr. Goodwin at home. He does not recall what he is taking but states that he is due to take those when he gets home. I discussed with him that he must follow-up with Dr. Goodwin closely. If there is any problem with that he should return to the hospital. Patient is given additional analgesic to take. Was pt. sent in by a medical professional or institution (, PA, [employer], urgent care, hospital, or longterm...) When possible be specific @ -[No] Did you speak to anyone other than the patient for history (EMS, parent, family, police, friend...)? What history was obtained from this source @ -[No] Did you review nursing and triage notes (agree or disagree)? Why? @ -[I reviewed and agree with nursing and triage notes] Were old charts reviewed (outside hosp., previous admission, EMS record, old EKG, old radiological studies, urgent care reports/EKG's, longterm records)? Report findings @ -[Yes, old charts were reviewed] Differential Diagnosis (chest pain, altered mental status, abdominal pain women, abdominal pain men, vaginal bleeding, weakness, fever, dyspnea, syncope, headache, dizziness, GI bleed, back pain, seizure, CVA, palpatations, mental health, musculoskeletal)? @ -Differential Chest Pain: Stable Angina, Unstable Angina, STEMI, NSTEMI Aortic Dissection, Pneumothorax, Musculoskeletal, Esophageal Spasm GERD, Cholecystitis, Pancreatitis, Zoster, this is not meant to be an all-inclusive list. EKG interpreted by me (3pts min.). @ -[I interpreted as above] X-rays interpreted by me (1pt min.). @ -[I interpreted as above CT interpreted by me (1pt min.). @ -[None done] U/S interpreted by me (1pt. min.). @ -[None done] What testing was considered but not performed or refused? (CT, X-rays, U/S, labs)? Why? @ -[None] What meds were considered but not given or refused? Why? @ -[None] Did you discuss the management of the patient with other professionals (professionals i.e. , PA, [employer], lab, RT, psych nurse, manager social services, animal cop, teacher, classifications officer cc/cm, caser)? Give summary @ -[No] Was smoking cessation discussed for >3mins.? @ -[No] Was critical care preformed (if so, how long)? @ -[No] Were there social determinants of health that impacted care today? How? (Homelessness, low income, unemployed, alcoholism, drug addiction, transportation, low edu. Level, literacy, decrease access to med. care, residential, rehab)? @ -[No] Was there de-escalation of care discussed even if they declined (Discuss DNR or withdrawal of care, Hospice)? DNR status @ -[No] What co-morbidities impacted this encounter? (DM, HTN, Smoking, COPD, CAD, Cancer, CVA, ARF, Chemo, Hep., AIDS, mental health diagnosis, sleep apnea, morbid obesity)? @ -[Current herpes zoster Was patient admitted / discharged? Hospital course, mention meds given and route, prescriptions, significant lab abnormalities, going to OR and other pertinent info. @ -[Patient is 70-year-old man here to have mainly treatment for pain related to zoster, but also chest pain. The patient's chest pain workup is benign. The patient does have a large corneal lesion and I did stress that he must have close follow-up with ophthalmology and continue to use the medication prescribed. Patient is feeling better on reevaluation and does want to go home. Discussed the appropriate follow-up and return parameters. Undiagnosed new problem with uncertain prognosis? @ -[No] Drug Therapy requiring intensive monitoring for toxicity (Heparin, Nitro, Insulin, Cardizem)? @ -[No] Were any procedures done? @ -[No] Diagnosis/symptom? @ -[Flare of pain related herpes zoster Zoster ophthalmicus Chest pain Acute, or Chronic, or Acute on Chronic? @ -[Acute Uncomplicated (without systemic symptoms) or Complicated (systemic symptoms)? @ -[default] Side effects of treatment? @ -[No] Exacerbation, Progression, or Severe Exacerbation? @ -[No] Poses a threat to life or bodily function? How? (Chest pain, USA, PA, pneumonia, PE, COPD, DKA, ARF, appy, cholecystitis, CVA, Diverticulitis, Homicidal, Suicidal, threat to staff... and all critical care pts) @ -[Yes there is risk to vision based on the zoster ophthalmicus and patient requires close follow-up All treatments are based on ideal body weight as in ED triage Disposition Clinical Impression: Chest pain, Zoster Disposition: HOME SELF-CARE Condition: Good Instructions (If sedation given, give patient instructions): Chest Pain (ED) Additional Instructions: As we discussed, follow-up with Dr. Goodwin as you were instructed, return if there is any change in your symptoms. Is patient prescribed a controlled substance at d/c from ED?: Yes When asked, does pt state using other controlled substances?: No If prescribed controlled substance>3 days was MAPS reviewed?: Prescribed <3 Days If opioid is for acute pain is fill amount 7 days or less?: Yes If Rx opioid, was Start Talking consent form obtained?: Yes Referrals: Román Gutierrez DO [Primary Care Provider] - 1-2 days
[2025-05-02] MEDS: ONDANSETRON 4 MG/2 ML VIAL IVP STA (21:27)
[2025-05-02] MEDS: MORPHINE SULFATE 4 MG/ML SYRINGE IV STA (21:27)
[2025-05-02] MEDS: ASPIRIN 81 MG PO STA (21:27)
--- NOTE | 2025-05-02 22:01 | XR ---
EXAMINATION TYPE: XR chest 1V portable DATE OF EXAM: 05/02/2025 9:34 PM COMPARISON: Chest radiographs from 12/29/2024 CLINICAL INDICATION: Male, 70 years old with history of chest pain; [facility] TECHNIQUE: XR chest 1V portable Frontal view of the chest. FINDINGS: Lungs/Pleura: There is no evidence of pleural effusion, focal consolidation, or pneumothorax. Pulmonary vascularity: Unremarkable. Heart/mediastinum: Cardiomediastinal silhouette is unremarkable. Atherosclerotic calcifications are seen in the aorta. Musculoskeletal: No acute osseous pathology. Other findings: None IMPRESSION: No acute cardiopulmonary disease/process. [facility], , 05/02/2025 9:59 PM
[2025-05-02 22:23] LABS: Basophils # (A) 0.06 10*3/uL (0.00-0.10); Basophils % (A) 0.7 %; Eosinophils # (A) 0.16 10*3/uL (0.04-0.35); Eosinophils % (A) 1.9 %; HCT 34.7 % (39.6-50.0); HGB 11.7 g/dL (13.0-17.0); Lymphocytes # (A) 1.71 10*3/uL (0.90-5.00); Lymphocytes % (A) 20.6 %; MCH 30.9 pg (27.0-32.0); MCHC 33.7 g/dL (32.0-37.0); MCV 91.6 fL (80.0-97.0); Mean Platelet Volume 10.3 fL (9.5-12.2); Monocytes # (A) 0.84 10*3/uL (0.20-1.00); Monocytes % (A) 10.1 %; Neutrophils # (A) 5.49 10*3/uL (1.80-7.70); Neutrophils % (A) 66.3 %; Platelet Count 172 10*3/uL (140-440); RBC 3.79 10*6/uL (4.40-5.60); RDW 14.4 % (11.5-14.5); WBC 8.29 10*3/uL (4.50-10.00)
[2025-05-02 22:30] LABS: ALT 39 U/L (4-49); AST 26 U/L (17-59); African American GFR (CKD) >90 (>60 ml/min/1.73 sqM); Albumin 3.3 g/dL (3.5-5.0); Alkaline Phosphatase 65 U/L (38-126); Anion Gap 10 mmol/L; Blood Urea Nitrogen 16 mg/dL (9-20); Calcium 8.6 mg/dL (8.4-10.2); Carbon Dioxide 29 mmol/L (22-30); Chloride 100 mmol/L (98-107); Glucose 98 mg/dL (74-99); Magnesium 2.2 mg/dL (1.6-2.3); Non-African American GFR(CKD) >90 (>60 ml/min/1.73 sqM); Sodium 139 mmol/L (137-145); Total Bilirubin 0.6 mg/dL (0.2-1.3); Total Protein 6.1 g/dL (6.3-8.2)
[2025-05-02 22:44] LABS: Partial Thromboplastin Time 22.9 sec (22.0-30.0); Prothrombin Time 11.4 sec (10.0-12.5)
[2025-05-03] MEDS: MORPHINE SULFATE 4 MG/ML SYRINGE IV STA (02:04)
[2025-05-03] MEDS: FLUORESCEIN STRIPS 1 MG STRIP LEFT EYE ONE (02:30)
[2025-05-03 04:54] VITALS: BP 128/74; PULSE 68; RESP 18
== END 2025-05-03 04:54 | disposition home or self-care (01) ==
LOC: EC 20:44
DX: B02.9 Zoster without complications (principal); R07.9 Chest pain, unspecified
CPT/HCPCS: 36415 ×2; 93005; 80053; 83735; 84484 ×2; 85025; 85610; 85730; 71045; 99285; 96374; 96375; 96376; J2270 ×2; J2405

== ENCOUNTER 2025-05-04 07:58 | Emergency (ER) | payer MEDICARE ==
[2025-05-04 08:04] VITALS: BP 124/80; PULSE 75; RESP 20; TEMP 98.3
[2025-05-04] MEDS: HYDROmorphone 1 MG/ML 1 ML SYRINGE IM STA (09:46)
--- NOTE | 2025-05-04 10:55 | ED ---
General Adult HPI - General Chief complaint: Recheck/Abnormal Lab/Rx Stated complaint: Body Pain Time Seen by Provider: 05/04/25 08:05 Source: patient Mode of arrival: ambulatory Limitations: no limitations - History of Present Illness Initial comments: 70-year-old male who presents to the emergency department reporting left eye pain. Patient has been seen multiple times in the emergency department as well as hospitalized for the same complaint. Patient has shingles located in the V1 distribution. He was hospitalized for this complaint. He is taking antivirals and antibiotic ointment. He did see his eye doctor on Monday and has another appointment scheduled tomorrow. Patient states that the pain medications that he is on at home are not helping. Patient is prescribed Bad Axe. Patient reports to immense pain in his face. States he has been compliant with his medications. Denies any worsening visual disturbance. No fevers. Denies headaches. No other alleviating, precipitating or modifying factors - Related Data Home Medications Medication Instructions Recorded Confirmed Memantine [Namenda] 10 mg PO BID 02/17/20 05/05/25 Pramipexole Di-HCl [Mirapex] 1.5 mg PO HS 02/17/20 05/05/25 Sertraline [Zoloft] 200 mg PO DAILY 08/18/21 05/05/25 Primidone [Mysoline] 150 mg PO DAILY 02/17/24 05/05/25 Tamsulosin [Flomax] 0.8 mg PO DAILY 05/19/24 05/05/25 Atorvastatin [Lipitor] 80 mg PO HS 11/04/24 05/05/25 Metoprolol Succinate [Toprol XL] 50 mg PO DAILY 11/04/24 05/05/25 Nitroglycerin Sl Tabs [Nitrostat] 0.4 mg SL Q5M PRN 11/04/24 05/05/25 Amiodarone [Cordarone] 100 mg PO DAILY 12/25/24 05/05/25 Clopidogrel [Plavix] 75 mg PO DAILY 04/23/25 05/05/25 Furosemide [Lasix] 40 mg PO DAILY 04/23/25 05/05/25 Losartan Potassium 100 mg PO DAILY 04/23/25 05/05/25 amLODIPine [Norvasc] 2.5 mg PO DAILY 04/23/25 05/05/25 Cephalexin [Keflex] 500 mg PO Q12HR 05/05/25 05/05/25 Gabapentin [Neurontin] 200 mg PO BID 05/05/25 05/05/25 Moxifloxacin HCl [Moxifloxacin 1 drop LEFT EYE QID 05/05/25 05/05/25 0.5%] valACYclovir HCL [Valtrex] 1,000 mg PO TID 05/05/25 05/05/25 Previous Rx's Medication Instructions Recorded Dabigatran [Pradaxa] 150 mg PO BID #60 cap 11/05/24 Pregabalin [Lyrica] 100 mg PO BID #60 cap 04/25/25 oxyCODONE HCL/ACETAMINOPHEN 1 tab PO Q4HR PRN 3 Days #18 tab 05/04/25 [Percocet 10-325 mg] Allergies Allergy/AdvReac Type Severity Reaction Status Date / Time No Known Allergies Allergy Verified 05/05/25 15:15 Review of Systems ROS Statement: Those systems with pertinent positive or pertinent negative responses have been documented in the HPI. ROS Other: All systems not noted in ROS Statement are negative. Past Medical History Past Medical History: Atrial Fibrillation, Coronary Artery Disease (CAD), Chest Pain / Angina, Heart Failure, Dementia, GERD/Reflux, Hyperlipidemia, Hypertension, Memory Impairment, Myocardial Infarction (MS), Neurologic Disorder, Pneumonia, Prostate Disorder, Renal Disease, Skin Disorder, Sleep Apnea/CPAP/BIPAP Additional Past Medical History / Comment(s): early parkinson's with essential tremors, "lewy body dementia"-short term memory less, R nephrolithiasis with surgery, EDITH with no CPAP, Irritable Bowel Syndrome diarrhea off and on, pneumonia/bronchitis, BPH, blood in stool-EGD/colonoscopy were normal, past hiatal hernia(sx), past falls., hx acute kidney failure; SOB with activity Last Myocardial Infarction Date:: 06/09/13 History of Any Multi-Drug Resistant Organisms: None Reported Past Surgical History: Back Surgery, Heart Catheterization, Heart Catheterization With Stent, Hernia Repair Additional Past Surgical History / Comment(s): 05/2013 stent to LAD and then a cardiac cath which showed stent patent, Recent R kidney stone removal, 03/19/15 Laparoscopic Elizabeth fundlaplication. SKIN GRAFTS CHEST & BACK FROM BASSETT AT 13 YRS OLD., COLONOSCOPY. EGD, L lazy eye surgery as toddler. c3 c4 fusion, c4 c5 fusion. Heart cath with Stent x2 RCA Dr. Hernandez 12/27/2024 Past Anesthesia/Blood Transfusion Reactions: No Reported Reaction Additional Past Anesthesia/Blood Transfusion Reaction / Comment(s): Pt received blood in 1967 without reaction. Date of Last Stent Placement:: 12/27/2024 Past Psychological History: Bipolar, Depression Smoking Status: Never smoker Past Alcohol Use History: None Reported Past Drug Use History: None Reported - Past Family History Mother Family Medical History: Liver Disease Additional Family Medical History / Comment(s): Mother was an alcoholic. She of cirrhosis of the liver at age 60yrs. Father Family Medical History: Cancer, Coronary Artery Disease (CAD), Myocardial Infarction (MS) Additional Family Medical History / Comment(s): SKIN CA. Father of a MS at age 65 yrs. Brother(s) Family Medical History: Cancer Additional Family Medical History / Comment(s): LEUKEMIA, LYMPH NODE CA AND MULTIPLE MYELOMA. General Exam Limitations: no limitations General appearance: alert, anxious Head exam: Present: atraumatic, other (Rash over the V1 distribution on the left forehead) Eye exam: Present: normal appearance, PERRL, EOMI. Absent: scleral icterus, conjunctival injection, periorbital swelling ENT exam: Present: normal exam, mucous membranes moist Neck exam: Present: normal inspection. Absent: tenderness, meningismus, lymphadenopathy Respiratory exam: Present: normal lung sounds bilaterally. Absent: respiratory distress, wheezes, rales, rhonchi, stridor Cardiovascular Exam: Present: regular rate, normal rhythm, normal heart sounds. Absent: systolic murmur, diastolic murmur, rubs, gallop, clicks GI/Abdominal exam: Present: soft, normal bowel sounds. Absent: distended, tenderness, guarding, rebound, rigid Extremities exam: Present: normal inspection, full ROM, normal capillary refill. Absent: tenderness, pedal edema, joint swelling, calf tenderness Back exam: Present: normal inspection Neurological exam: Present: alert, oriented X3, CN II-XII intact Psychiatric exam: Present: normal affect, normal mood Skin exam: Present: warm, dry, intact, normal color. Absent: rash Course Vital Signs 05/04/25 08:01 Temperature 98.3 F Pulse Rate 75 Respiratory 20 Rate Blood Pressure 124/80 O2 Sat by Pulse 99 Oximetry Medical Decision Making - Medical Decision Making Was pt. sent in by a medical professional or institution ([facility], [facility], urgent care, hospital, or fdc...) When possible be specific @ -No Did you speak to anyone other than the patient for history (EMS, parent, family, police, friend...)? What history was obtained from this source @ -I spoke with the for history Did you review nursing and triage notes (agree or disagree)? Why? @ -I reviewed and agree with nursing and triage notes Were old charts reviewed (outside hosp., previous admission, EMS record, old EKG, old radiological studies, urgent care reports/EKG's, fdc records)? Report findings @ -Summary on the patient as patient was just hospitalized for the same complaint Differential Diagnosis (chest pain, altered mental status, abdominal pain women, abdominal pain men, vaginal bleeding, weakness, fever, dyspnea, syncope, headache, dizziness, GI bleed, back pain, seizure, CVA, palpatations, mental health, musculoskeletal)? @ -Herpes ophthalmicus, impetigo, glaucoma EKG interpreted by me (3pts min.). @ -Not done X-rays interpreted by me (1pt min.). @ -None done CT interpreted by me (1pt min.). @ -None done U/S interpreted by me (1pt. min.). @ -None done What testing was considered but not performed or refused? (CT, X-rays, U/S, labs)? Why? @ -None What meds were considered but not given or refused? Why? @ -None Did you discuss the management of the patient with other professionals (professionals i.e. [facility] Alvarado, [facility], lab, RT, psych nurse, social insurance administrator, video effects editor, teacher, global safety officer, case supervisor)? Give summary @ -Spoke with Dr. Chakraborty who presents to the emergency department to evaluate the patient Was smoking cessation discussed for >3mins.? @ -No Was critical care preformed (if so, how long)? @ -No Were there social determinants of health that impacted care today? How? (Homelessness, low income, unemployed, alcoholism, drug addiction, transportation, low edu. Level, literacy, decrease access to med. care, [place] [facility], rehab)? @ -No Was there de-escalation of care discussed even if they declined (Discuss DNR or withdrawal of care, Hospice)? DNR status @ -No What co-morbidities impacted this encounter? (DM, HTN, Smoking, COPD, CAD, Cancer, CVA, ARF, Chemo, Hep., AIDS, mental health diagnosis, sleep apnea, morbid obesity)? @ -None Was patient admitted / discharged? Hospital course, mention meds given and route, prescriptions, significant lab abnormalities, going to OR and other pertinent info. @ -Upon arrival patient seen and evaluated in room 23. Thorough history and physical exam was performed. I did review the patient's chart. He has been on several different medications which keeps changing as he is going between different providers. Most recent medications were provided by lead etl developer for which he does have an appointment tomorrow. Patient is requesting IV Dilaudid as he states this is the only thing that helps his pain. Patient was given an IM injection. I spoke with Dr. Chakraborty in regards to the symptoms. He does come to the emergency department and evaluates the patient. States that he does not want to hospitalize the patient for IV Dilaudid alone. Recommends increasing pain medications and having the patient follow-up with his eye doctor tomorrow. Patient is given referral to pain management. His Bad Axe will be escalated to Percocet. Instructed to discontinue the Bad Axe. Continue all other medications that were started by the eye doctor. See them tomorrow and return for any new or worsening symptoms Undiagnosed new problem with uncertain prognosis? @ -No Drug Therapy requiring intensive monitoring for toxicity (Heparin, Nitro, Insulin, Cardizem)? @ -No Were any procedures done? @ -No Diagnosis/symptom? @ -Acute left eye pain, herpes ophthalmicus Acute, or Chronic, or Acute on Chronic? @ -Acute Uncomplicated (without systemic symptoms) or Complicated (systemic symptoms)? @ -Complicated Side effects of treatment? @ -Sedation Exacerbation, Progression, or Severe Exacerbation? @ -No Poses a threat to life or bodily function? How? (Chest pain, USA, MS, pneumonia, PE, COPD, DKA, ARF, appy, cholecystitis, CVA, Diverticulitis, Homicidal, Suicidal, threat to staff... and all critical care pts) @ -No Disposition Clinical Impression: Herpes zoster ophthalmicus Disposition: HOME SELF-CARE Condition: Stable Instructions (If sedation given, give patient instructions): Shingles (ED) Additional Instructions: Stop taking the Bad Axe. Try and escalate to the Percocets to see if these help your pain. Only take them as needed for pain. Follow-up with the eye doctor tomorrow. Continue all other prescriptions besides the Bad Axe. Call the pain management doctor tomorrow to see if they can do something more for your pain Prescriptions: oxyCODONE HCL/ACETAMINOPHEN [Percocet 10-325 mg] 1 tab PO Q4HR PRN 3 Days #18 tab PRN Reason: Pain Is patient prescribed a controlled substance at d/c from ED?: Yes When asked, does pt state using other controlled substances?: No If prescribed controlled substance>3 days was MAPS reviewed?: Prescribed <3 Days If opioid is for acute pain is fill amount 7 days or less?: Yes If Rx opioid, was Start Talking consent form obtained?: Yes Referrals: Dannie Mccurdy, BRYN [REFERRING] - 1-2 days Román Gutierrez DO [Primary Care Provider] - 1-2 days Nick Estrella MD [STAFF PHYSICIAN] - 1-2 days Time of Disposition: 11:00
== END 2025-05-04 11:15 | disposition home or self-care (01) ==
LOC: EC 07:58
DX: B02.30 Zoster ocular disease, unspecified (principal)
CPT/HCPCS: 99283; 96372; J1171

== ENCOUNTER 2025-05-05 12:12 | Observation (INO) | payer MEDICARE ==
--- NOTE | 2025-05-05 12:49 | ED ---
General Adult HPI - General Chief complaint: Syncope Stated complaint: abnormal labs Time Seen by Provider: 05/05/25 12:15 Source: patient, EMS, RN notes reviewed Mode of arrival: EMS Limitations: no limitations - History of Present Illness Initial comments: Patient is a 70-year-old male present to the emergency department with concerns with syncopal episode. Patient states he was talking and believes he passed out. Patient denies injury. Patient unclear how long it lasted for. No history of similar symptoms previously. Patient does have pain left forehead from shingles. Patient did see his eye doctor earlier today and was given medication. - Related Data Home Medications Medication Instructions Recorded Confirmed Memantine [Namenda] 10 mg PO BID 02/17/20 05/05/25 Pramipexole Di-HCl [Mirapex] 1.5 mg PO HS 02/17/20 05/05/25 Sertraline [Zoloft] 200 mg PO DAILY 08/18/21 05/05/25 Primidone [Mysoline] 150 mg PO DAILY 02/17/24 05/05/25 Tamsulosin [Flomax] 0.8 mg PO DAILY 05/19/24 05/05/25 Atorvastatin [Lipitor] 80 mg PO HS 11/04/24 05/05/25 Metoprolol Succinate [Toprol XL] 50 mg PO DAILY 11/04/24 05/05/25 Nitroglycerin Sl Tabs [Nitrostat] 0.4 mg SL Q5M PRN 11/04/24 05/05/25 Amiodarone [Cordarone] 100 mg PO DAILY 12/25/24 05/05/25 Clopidogrel [Plavix] 75 mg PO DAILY 04/23/25 05/05/25 Furosemide [Lasix] 40 mg PO DAILY 04/23/25 05/05/25 Losartan Potassium 100 mg PO DAILY 04/23/25 05/05/25 amLODIPine [Norvasc] 2.5 mg PO DAILY 04/23/25 05/05/25 Cephalexin [Keflex] 500 mg PO Q12HR 05/05/25 05/05/25 Gabapentin [Neurontin] 200 mg PO BID 05/05/25 05/05/25 Moxifloxacin HCl [Moxifloxacin 1 drop LEFT EYE QID 05/05/25 05/05/25 0.5%] valACYclovir HCL [Valtrex] 1,000 mg PO TID 05/05/25 05/05/25 Previous Rx's Medication Instructions Recorded Dabigatran [Pradaxa] 150 mg PO BID #60 cap 11/05/24 Pregabalin [Lyrica] 100 mg PO BID #60 cap 04/25/25 oxyCODONE HCL/ACETAMINOPHEN 1 tab PO Q4HR PRN 3 Days #18 tab 05/04/25 [Percocet 10-325 mg] Allergies Allergy/AdvReac Type Severity Reaction Status Date / Time No Known Allergies Allergy Verified 05/05/25 15:15 Review of Systems ROS Statement: Those systems with pertinent positive or pertinent negative responses have been documented in the HPI. ROS Other: All systems not noted in ROS Statement are negative. Constitutional: Denies: fever Eyes: Reports: as per HPI Respiratory: Denies: dyspnea Cardiovascular: Denies: chest pain Gastrointestinal: Denies: abdominal pain Skin: Reports: rash Past Medical History Past Medical History: Atrial Fibrillation, Coronary Artery Disease (CAD), Chest Pain / Angina, Heart Failure, Dementia, GERD/Reflux, Hyperlipidemia, Hypertension, Memory Impairment, Myocardial Infarction ([place]), Neurologic Disorder, Pneumonia, Prostate Disorder, Renal Disease, Skin Disorder, Sleep Apnea/CPAP/BIPAP Additional Past Medical History / Comment(s): early parkinson's with essential tremors, "lewy body dementia"-short term memory less, R nephrolithiasis with surgery, EDITH with no CPAP, Irritable Bowel Syndrome diarrhea off and on, pneum onia/bronchitis, BPH, blood in stool-EGD/colonoscopy were normal, past hiatal hernia(sx), past falls., hx acute kidney failure; SOB with activity Last Myocardial Infarction Date:: 06/09/13 History of Any Multi-Drug Resistant Organisms: None Reported Past Surgical History: Back Surgery, Heart Catheterization, Heart Catheteriz ation With Stent, Hernia Repair Additional Past Surgical History / Comment(s): 05/2013 stent to LAD and then a cardiac cath which showed stent patent, Recent R kidney stone removal, 03/19/15 Laparoscopic Elizabeth fundlaplication. SKIN GRAFTS CHEST & BACK FROM BASSETT AT 13 YRS OLD., COLONOSCOPY. EGD, L lazy eye surgery as toddler. c3 c4 fusion, c4 c5 fusion. Heart cath with Stent x2 RCA Dr. Hernandez 12/27/2024 Past Anesthesia/Blood Transfusion Reactions: No Reported Reaction Additional Past Anesthesia/Blood Transfusion Reaction / Comment(s): Pt received blood in 1967 without reaction. Date of Last Stent Placement:: 12/27/2024 Past Psychological History: Bipolar, Depression Smoking Status: Never smoker Past Alcohol Use History: None Reported Past Drug Use History: None Reported - Past Family History Mother Family Medical History: Liver Disease Additional Family Medical History / Comment(s): Mother was an alcoholic. She of cirrhosis of the liver at age 60yrs. Father Family Medical History: Cancer, Coronary Artery Disease (CAD), Myocardial Infarction ([place]) Additional Family Medical History / Comment(s): SKIN CA. Father of a AL at age 65 yrs. Brother(s) Family Medical History: Cancer Additional Family Medical History / Comment(s): LEUKEMIA, LYMPH NODE CA AND MULTIPLE MYELOMA. General Exam Limitations: no limitations General appearance: alert, in no apparent distress Head exam: Present: atraumatic Eye exam: Present: conjunctival injection (Left-sided) ENT exam: Present: normal oropharynx Neck exam: Present: normal inspection Respiratory exam: Present: normal lung sounds bilaterally Cardiovascular Exam: Present: regular rate, normal rhythm GI/Abdominal exam: Present: soft. Absent: tenderness Extremities exam: Present: normal inspection Neurological exam: Present: alert, oriented X3, CN II-XII intact. Absent: motor sensory deficit Expanded Neurological exam: Present: protecting the airway Patient oriented to: Present: person, place, time Speech: Present: fluid speech Cranial nerves: EOM's Intact: Normal, Facial Sensation: Normal Sensory exam: Upper Extremity Light Touch: Normal, Lower Extremity Light Touch: Normal Motor strength exam: RUE: 5, LUE: 5, RLE: 5, LLE: 5 Eye Response: (4) open spontaneously Motor Response: (6) obeys commands Verbal Response: (5) oriented Psychiatric exam: Present: normal affect, normal mood Skin exam: Present: rash (Left forehead erythematous base with appearance of he aling/crusted lesions) Course Vital Signs 05/05/25 05/05/25 05/05/25 12:15 12:36 13:00 Temperature 97.9 F Pulse Rate 61 57 L 56 L Respiratory 16 18 18 Rate Blood Pressure 85/59 102/81 94/66 O2 Sat by Pulse 88 L 96 97 Oximetry 05/05/25 14:15 Temperature Pulse Rate 57 L Respiratory 18 Rate Blood Pressure 104/64 O2 Sat by Pulse 94 L Oximetry EKG Findings - EKG Results: EKG: interpreted by ERMD (Left axis.), sinus rhythm, normal QRS, normal ST/T EKG shows: bradycardia Medical Decision Making - Medical Decision Making Was pt. sent in by a medical professional or institution (, PA, MARKETING STRATEGY MANAGER, urgent care, hospital, or custodial...) When possible be specific @ -No Did you speak to anyone other than the patient for history (EMS, parent, family, police, friend...)? What history was obtained from this source @ -No Did you review nursing and triage notes (agree or disagree)? Why? @ -I reviewed and agree with nursing and triage notes Were old charts reviewed (outside hosp., previous admission, EMS record, old EKG, old radiological studies, urgent care reports/EKG's, custodial records)? Report findings @ -Previous admission reviewed Differential Diagnosis (chest pain, altered mental status, abdominal pain women, abdominal pain men, vaginal bleeding, weakness, fever, dyspnea, syncope, headache, dizziness, GI bleed, back pain, seizure, CVA, palpatations, mental health, musculoskeletal)? @ -Differential Syncope: Valvular disease, hypertrophic cardiomyopathy, pulmonary embolism, tamponade, tachycardia, bradycardia, AL, hypovolemia, hemorrhage, dissection, anemia, intracranial hemorrhage, seizure, hypoglycemia, carbon monoxide poisoning, this is not meant to be an all-inclusive list. EKG interpreted by me (3pts min.). @ -As above X-rays interpreted by me (1pt min.). @ -Chest x-ray does not reveal acute abnormality CT interpreted by me (1pt min.). @ -CT scan of the brain without acute abnormality U/S interpreted by me (1pt. min.). @ -None done What testing was considered but not performed or refused? (CT, X-rays, U/S, labs)? Why? @ -None What meds were considered but not given or refused? Why? @ -None Did you discuss the management of the patient with other professionals (professionals i.e. , ANDREA, MARKETING STRATEGY MANAGER, lab, RT, psych nurse, social problems specialist, chemical laboratory assistant, teacher, procurement officer, disease case manager)? Give summary @ -Case was discussed with Dr. Chakraborty who is familiar with this patient and will admit covering Dr. Watkins for us Was smoking cessation discussed for >3mins.? @ -No Was critical care preformed (if so, how long)? @ -No Were there social determinants of health that impacted care today? How? (Homelessness, low income, unemployed, alcoholism, drug addiction, transportation, low edu. Level, literacy, decrease access to med. care, care home, rehab)? @ -No Was there de-escalation of care discussed even if they declined (Discuss DNR or withdrawal of care, Hospice)? DNR status @ -No What co-morbidities impacted this encounter? (DM, HTN, Smoking, COPD, CAD, Cancer, CVA, ARF, Chemo, Hep., AIDS, mental health diagnosis, sleep apnea, morbid obesity)? @ -Recent stroke. Was patient admitted / discharged? Hospital course, mention meds given and route, prescriptions, significant lab abnormalities, going to OR and other per tinent info. @ -Patient presents with syncopal episode. Initial evaluation unremarkable. Patient will be admitted with neuro consult. Admission orders written. Patient reevaluated and updated Undiagnosed new problem with uncertain prognosis? @ -No Drug Therapy requiring intensive monitoring for toxicity (Heparin, Nitro, Insulin, Cardizem)? @ -No Were any procedures done? @ -No Diagnosis/symptom? @ -Syncope Acute, or Chronic, or Acute on Chronic? @ -Acute Uncomplicated (without systemic symptoms) or Complicated (systemic symptoms)? @ -Default Side effects of treatment? @ -No Exacerbation, Progression, or Severe Exacerbation? @ -No Poses a threat to life or bodily function? How? (Chest pain, USA, AL, pneumonia, PE, COPD, DKA, ARF, appy, cholecystitis, CVA, Diverticulitis, Homicidal, Suicidal, threat to staff... and all critical care pts) @ -No - Lab Data Result diagrams: 05/05/25 12:54 05/05/25 12:54 Lab Results 05/05/25 05/05/25 05/05/25 Range/Units 12:54 12:54 12:54 WBC 7.36 (4.50-10.00) 10*3/uL RBC 3.62 L (4.40-5.60) 10*6/uL Hgb 11.2 L (13.0-17.0) g/dL Hct 34.0 L (39.6-50.0) % MCV 93.9 (80.0-97.0) fL MCH 30.9 (27.0-32.0) pg MCHC 32.9 (32.0-37.0) g/dL Plt Count 197 (140-440) 10*3/uL MPV 9.6 (9.5-12.2) fL Immature Gran % (Auto) 0.4 % Neutrophils % 71.2 % Lymphocytes % 14.4 % Monocytes % 11.1 % Eosinophils % 2.2 % Basophils % 0.7 % Immature Gran # 0.03 (0.00-0.04) 10*3/uL Neutrophils # 5.24 (1.80-7.70) 10*3/uL Lymphocytes # 1.06 (0.90-5.00) 10*3/uL Monocytes # 0.82 (0.20-1.00) 10*3/uL Eosinophils # 0.16 (0.04-0.35) 10*3/uL Basophils # 0.05 (0.00-0.10) 10*3/uL PT 15.4 H (10.0-12.5) sec INR 1.5 H (<1.2) APTT 45.0 H (22.0-30.0) sec D-Dimer 0.45 (<0.60) mg/L FEU Sodium 139 (137-145) mmol/L Potassium 3.5 (3.5-5.1) mmol/L Chloride 109 H (98-107) mmol/L Carbon Dioxide 21 L (22-30) mmol/L Anion Gap 9 mmol/L BUN 27 H (9-20) mg/dL Creatinine 1.49 H (0.66-1.25) mg/dL Est GFR (CKD-EPI)AfAm 55 (>60 ml/min/1.73 sqM) Est GFR (CKD-EPI)NonAf 47 (>60 ml/min/1.73 sqM) Glucose 113 H (74-99) mg/dL Calcium 7.9 L (8.4-10.2) mg/dL Magnesium 2.3 (1.6-2.3) mg/dL Total Bilirubin 0.7 (0.2-1.3) mg/dL AST 43 (17-59) U/L ALT 30 (4-49) U/L Alkaline Phosphatase 66 (38-126) U/L Troponin I (0.000-0.034) ng/mL Total Protein 5.8 L (6.3-8.2) g/dL Albumin 3.1 L (3.5-5.0) g/dL 05/05/25 Range/Units 12:54 WBC (4.50-10.00) 10*3/uL RBC (4.40-5.60) 10*6/uL Hgb (13.0-17.0) g/dL Hct (39.6-50.0) % MCV (80.0-97.0) fL MCH (27.0-32.0) pg MCHC (32.0-37.0) g/dL Plt Count (140-440) 10*3/uL MPV (9.5-12.2) fL Immature Gran % (Auto) % Neutrophils % % Lymphocytes % % Monocytes % % Eosinophils % % Basophils % % Immature Gran # (0.00-0.04) 10*3/uL Neutrophils # (1.80-7.70) 10*3/uL Lymphocytes # (0.90-5.00) 10*3/uL Monocytes # (0.20-1.00) 10*3/uL Eosinophils # (0.04-0.35) 10*3/uL Basophils # (0.00-0.10) 10*3/uL PT (10.0-12.5) sec INR (<1.2) APTT (22.0-30.0) sec D-Dimer (<0.60) mg/L FEU Sodium (137-145) mmol/L Potassium (3.5-5.1) mmol/L Chloride (98-107) mmol/L Carbon Dioxide (22-30) mmol/L Anion Gap mmol/L BUN (9-20) mg/dL Creatinine (0.66-1.25) mg/dL Est GFR (CKD-EPI)AfAm (>60 ml/min/1.73 sqM) Est GFR (CKD-EPI)NonAf (>60 ml/min/1.73 sqM) Glucose (74-99) mg/dL Calcium (8.4-10.2) mg/dL Magnesium (1.6-2.3) mg/dL Total Bilirubin (0.2-1.3) mg/dL AST (17-59) U/L ALT (4-49) U/L Alkaline Phosphatase (38-126) U/L Troponin I 0.022 (0.000-0.034) ng/mL Total Protein (6.3-8.2) g/dL Albumin (3.5-5.0) g/dL Disposition Clinical Impression: Syncope Disposition: ADMITTED IP TO THIS HOSP Is patient prescribed a controlled substance at d/c from ED?: No Referrals: Román Gutierrez DO [Primary Care Provider] - 1-2 days Time of Disposition: 15:25
[2025-05-05 13:00] LABS: Basophils # (A) 0.05 10*3/uL (0.00-0.10); Basophils % (A) 0.7 %; Eosinophils # (A) 0.16 10*3/uL (0.04-0.35); Eosinophils % (A) 2.2 %; HGB 11.2 g/dL (13.0-17.0); Lymphocytes # (A) 1.06 10*3/uL (0.90-5.00); Lymphocytes % (A) 14.4 %; MCH 30.9 pg (27.0-32.0); MCHC 32.9 g/dL (32.0-37.0); MCV 93.9 fL (80.0-97.0); Mean Platelet Volume 9.6 fL (9.5-12.2); Monocytes # (A) 0.82 10*3/uL (0.20-1.00); Monocytes % (A) 11.1 %; Neutrophils # (A) 5.24 10*3/uL (1.80-7.70); Neutrophils % (A) 71.2 %; Platelet Count 197 10*3/uL (140-440); RBC 3.62 10*6/uL (4.40-5.60); RDW 14.4 % (11.5-14.5); WBC 7.36 10*3/uL (4.50-10.00)
[2025-05-05 13:11] LABS: ALT 30 U/L (4-49); African American GFR (CKD) 55 (>60 ml/min/1.73 sqM); Albumin 3.1 g/dL (3.5-5.0); Anion Gap 9 mmol/L; Blood Urea Nitrogen 27 mg/dL (9-20); Calcium 7.9 mg/dL (8.4-10.2); Carbon Dioxide 21 mmol/L (22-30); Chloride 109 mmol/L (98-107); Glucose 113 mg/dL (74-99); Non-African American GFR(CKD) 47 (>60 ml/min/1.73 sqM); Sodium 139 mmol/L (137-145); Total Bilirubin 0.7 mg/dL (0.2-1.3); Total Protein 5.8 g/dL (6.3-8.2)
[2025-05-05 13:16] LABS: INR 1.5 (<1.2); Prothrombin Time 15.4 sec (10.0-12.5)
[2025-05-05 13:30] LABS: AST 43 U/L (17-59); Alkaline Phosphatase 66 U/L (38-126); Magnesium 2.3 mg/dL (1.6-2.3); Potassium 3.5 mmol/L (3.5-5.1)
--- NOTE | 2025-05-05 13:52 | XR ---
EXAMINATION TYPE: XR chest 2V DATE OF EXAM: 05/05/2025 1:24 PM COMPARISON: Chest radiograph from 3days prior. CLINICAL INDICATION: Male, 70 years old with history of syncope; [facility] TECHNIQUE: XR chest 2V Frontal and lateral views of the chest. FINDINGS: Lungs/Pleura: There is no evidence of pleural effusion, focal consolidation, or pneumothorax. Pulmonary vascularity: Unremarkable. Heart/mediastinum: Cardiomediastinal silhouette is unremarkable. Musculoskeletal: No acute osseous pathology. IMPRESSION: No acute cardiopulmonary disease/process. [facility], Workstation: [facility], 05/05/2025 1:50 PM
--- NOTE | 2025-05-05 14:12 | CT ---
EXAMINATION TYPE: CT brain wo con DATE OF EXAM: 05/05/2025 COMPARISON: 04/22/2025 CLINICAL INDICATION: Male, 70 years old with history of syncope; PHH, AMS CT DLP: 1153.4 mGycm Automated exposure control for dose reduction was used. Findings: The ventricles, basal cisterns and sulci over the convexities are within normal limits and there is n o mass effect or shift of midline structures. There is mild decreased density in the periventricular white matter consistent with mild chronic isch emic white matter demyelination. There is a remote lacunar infarct in the right thalamus and in the left cortical spinal tracts. There is no acute intra or extra-axial hemorrhage. The posterior fossa including the brainstem, fourth ventricle and cerebellar pontine angles appear no rmal. Intraorbital contents appear normal and symmetric. Visualized paranasal sinuses and mastoid air cells are well aerated. The calvarium is intact. IMPRESSION: 1. No acute bleed or mass effect. 2. No interval change compared to the prior study. 3. 2 remote lacunar infarcts as described above. Mild chronic ischemic white matter demyelination. [facility], , 05/05/2025 2:10 PM
[2025-05-05] MEDS: HYDROcodone/APAP 7.5-325MG 1 EACH TAB PO ONE (14:30)
[2025-05-05] MEDS ORDERED: HYDROmorphone 1 MG/ML 1 ML SYRINGE IVP PRN (15:26)
[2025-05-05] MEDS ORDERED: traMADol 50 MG TAB PO PRN (15:26)
[2025-05-05] MEDS ORDERED: HYDROmorphone 0.5 MG/0.5 ML SYRINGE IVP PRN (15:26)
[2025-05-05] MEDS ORDERED: NALOXONE 0.4 MG/ML 1 ML VIAL IV PRN (15:26)
[2025-05-05] MEDS ORDERED: oxyCODONE-APAP 10-325MG 1 EACH TAB PO PRN (15:29)
[2025-05-05] MEDS: valACYclovir HCL 1,000 MG TABLET PO SCH (16:57)
--- NOTE | 2025-05-05 17:28 | P.CNNES ---
History of Present Illness Consult date: 05/05/25 Requesting physician: Miller Carrillo Reason for Consult: syncope History of Present Illness: This is a 70 year-old gentleman with recent shingles who presents to the emergency department because of passing out episode. Patient is at bedside who helps with the history. It seems that the patient was at his physician's office and patient felt he was about to pass out and then his eyes rolled back and he briefly passed out and lasted for 5 seconds. According to the patient did not have any jerking of any extremities. Also patient denies any urinary or bowel incontinence or tongue bite. Denies any warning sign. Patient did not fall because he was supported by others. Patient does not have any history of seizures. Going to the recently he has been having multiple fall episodes but again no jerking of any extremities no seizures. He has a history of Lewy body dementia as well as essential tremor. On presentation his blood pressure was very low. According to the he is on so many medication. Patient has a history of coronary artery disease status post stent and he had 7 stents according to the as well as congestive heart failure. He is having severe pain over the face because of the shingles and he is following up with multiple providers. He is also following up with communications officer, neurologist and is getting pain medication. Patient did not have any head injuries. Some of the work-up during this hospital visit consisted of: On initial presentation blood pressure 85/59 with pulse oxygen 88% at room air. Gucose is 113,, sodium 139, calcium is 7.9 I reviewed the lab work-up. CT head: No acute bleed or mass effect. No interval change compared to prior study. I personally reviewed CT head and agree there is no acute process. Past Medical History Past Medical History: Atrial Fibrillation, Coronary Artery Disease (CAD), Chest Pain / Angina, Heart Failure, Dementia, GERD/Reflux, Hyperlipidemia, Hypertension, Memory Impairment, Myocardial Infarction ([place]), Neurologic Disorder, Pneumonia, Prostate Disorder, Renal Disease, Skin Disorder, Sleep Apnea/CPAP/BIPAP Additional Past Medical History / Comment(s): early parkinson's with essential tremors, "lewy body dementia"-short term memory less, R nephrolithiasis with surgery, EDITH with no CPAP, Irritable Bowel Syndrome diarrhea off and on, pneumonia/bronchitis, BPH, blood in stool-EGD/colonoscopy were normal, past hiatal hernia(sx), past falls., hx acute kidney failure; SOB with activity Last Myocardial Infarction Date:: 06/09/13 History of Any Multi-Drug Resistant Organisms: None Reported Past Surgical History: Back Surgery, Heart Catheterization, Heart Catheterizati on With Stent, Hernia Repair Additional Past Surgical History / Comment(s): 05/2013 stent to LAD and then a cardiac cath which showed stent patent, Recent R kidney stone removal, 03/19/15 Laparoscopic Elizabeth fundlaplication. SKIN GRAFTS CHEST & BACK FROM BASSETT AT 13 YRS OLD., COLONOSCOPY. EGD, L lazy eye surgery as toddler. c3 c4 fusion, c4 c5 fusion. Heart cath with Stent x2 RCA Dr. Hernandez 12/27/2024 Past Anesthesia/Blood Transfusion Reactions: No Reported Reaction Additional Past Anesthesia/Blood Transfusion Reaction / Comment(s): Pt received blood in 1967 without reaction. Date of Last Stent Placement:: 12/27/2024 Past Psychological History: Bipolar, Depression Smoking Status: Never smoker Past Alcohol Use History: None Reported Past Drug Use History: None Reported - Past Family History Mother Family Medical History: Liver Disease Additional Family Medical History / Comment(s): Mother was an alcoholic. She of cirrhosis of the liver at age 60yrs. Father Family Medical History: Cancer, Coronary Artery Disease (CAD), Myocardial Infarction (MN) Additional Family Medical History / Comment(s): SKIN CA. Father of a [place] at age 65 yrs. Brother(s) Family Medical History: Cancer Additional Family Medical History / Comment(s): LEUKEMIA, LYMPH NODE CA AND MULTIPLE MYELOMA. Medications and Allergies Home Medications Medication Instructions Recorded Confirmed Type Memantine [Namenda] 10 mg PO BID 02/17/20 05/05/25 History Pramipexole Di-HCl [Mirapex] 1.5 mg PO HS 02/17/20 05/05/25 History Sertraline [Zoloft] 200 mg PO DAILY 08/18/21 05/05/25 History Primidone [Mysoline] 150 mg PO DAILY 02/17/24 05/05/25 History Tamsulosin [Flomax] 0.8 mg PO DAILY 05/19/24 05/05/25 History Atorvastatin [Lipitor] 80 mg PO HS 11/04/24 05/05/25 History Metoprolol Succinate [Toprol XL] 50 mg PO DAILY 11/04/24 05/05/25 History Nitroglycerin Sl Tabs [Nitrostat] 0.4 mg SL Q5M PRN 11/04/24 05/05/25 History Dabigatran [Pradaxa] 150 mg PO BID #60 cap 11/05/24 05/05/25 Rx Amiodarone [Cordarone] 100 mg PO DAILY 12/25/24 05/05/25 History Clopidogrel [Plavix] 75 mg PO DAILY 04/23/25 05/05/25 History Furosemide [Lasix] 40 mg PO DAILY 04/23/25 05/05/25 History Losartan Potassium 100 mg PO DAILY 04/23/25 05/05/25 History amLODIPine [Norvasc] 2.5 mg PO DAILY 04/23/25 05/05/25 History Pregabalin [Lyrica] 100 mg PO BID #60 cap 04/25/25 05/05/25 Rx oxyCODONE HCL/ACETAMINOPHEN 1 tab PO Q4HR PRN 3 Days #18 tab 05/04/25 05/05/25 Rx [Percocet 10-325 mg] Cephalexin [Keflex] 500 mg PO Q12HR 05/05/25 05/05/25 History Gabapentin [Neurontin] 200 mg PO BID 05/05/25 05/05/25 History Moxifloxacin HCl [Moxifloxacin 1 drop LEFT EYE QID 05/05/25 05/05/25 History 0.5%] valACYclovir HCL [Valtrex] 1,000 mg PO TID 05/05/25 05/05/25 History Allergies Allergy/AdvReac Type Severity Reaction Status Date / Time No Known Allergies Allergy Verified 05/05/25 15:15 Physical Examination - Vital Signs Vital Signs: Vital Signs Temp Pulse Resp BP Pulse Ox 05/05/25 16:00 56 L 20 97/75 94 L 05/05/25 15:00 56 L 18 98/69 93 L 05/05/25 14:15 57 L 18 104/64 94 L 05/05/25 13:00 56 L 18 94/66 97 05/05/25 12:36 97.9 F 57 L 18 102/81 96 05/05/25 12:15 61 16 85/59 88 L Intake and Output 05/05/25 05/05/2505/05/25 06:59 14:59 22:59 Other: Weight 54.431 kg GENERAL: The patient is lying in bed and is mild to moderate acute distress. HENT: Shingle rash over the left side of face. NEUROLOGICAL: Alert oriented to self place and time. Does follow simple commands. No aphasia No facial weakness. No dysarthria. All extremities above gravity Results - Laboratory Findings CBC and BMP: 05/05/25 12:54 05/05/25 12:54 Abnormal Lab Findings: Abnormal Labs 05/05/25 05/05/25 05/05/25 12:54 12:54 12:54 RBC 3.62 L Hgb 11.2 L Hct 34.0 L PT 15.4 H INR 1.5 H APTT 45.0 H Chloride 109 H Carbon Dioxide 21 L BUN 27 H Creatinine 1.49 H Glucose 113 H Calcium 7.9 L Total Protein 5.8 L Albumin 3.1 L Assessment and Plan Assessment: This is a 70-year-old gentleman who presents emergency department because of syncopal spell and lasted for 5 seconds. His initial blood pressure was 85/59. Brief Syncopal spell likely due to hypotension CT of the head is unremarkable for acute process. Does not appear like a seizure. If his hypotension is related due to cardiac especially with the significant cardiac issue versus ne urological especially with Lewy body dementia causing autonomic dysfunction versus medication induced. Recurrent falls recently and unsure exact cause: Possible same as above. Shingles over the left face History of essential tremor Underlying history of Lewy body dementia history of obstructive sleep apnea Underlying mild memory impairment History of atrial fibrillation History of coronary artery disease status post stent Polypharmacy Plan: I ordered a routine EEG and seizure is unlikely Recommend orthostatic vitals. If the patient continues to have hypotensive e pisodes or positive orthostatic will defer the management to primary team Consider cardiology consultation for syncope especially with significant cardiac issues. Will defer the rest of the medical management to primary and other specialist Upon discharge, recommend the patient to follow-up with his outpatient neurologist, Dr. Kaur within 2-3 weeks. The plan is discussed with patient and his . Thank you for the consultation Time with Patient: Greater than 30
[2025-05-05] MEDS: HYDROcodone/APAP 5-325MG 1 EACH TAB PO PRN (18:29)
[2025-05-05] MEDS: MOXIFLOXACIN HCL 0.5% DROPS 3 ML BTL LEFT EYE SCH (18:30)
[2025-05-05] MEDS: GABAPENTIN 100 MG CAP PO SCH (20:47)
[2025-05-05] MEDS: ATORVASTATIN 80 MG TAB PO SCH (20:47)
[2025-05-05] MEDS ORDERED: MEMANTINE 10 MG TAB PO SCH (21:00)
--- NOTE | 2025-05-05 21:09 | P.HPIM ---
History of Present Illness H&P Date: 05/05/25 Chief Complaint: Hypotension Very pleasant 70-year-old patient of Dr. Gutierrez. Chronic medical conditions include some cognitive impairment, GERD, hyperlipidemia, hypertension, early Parkinson's versus essential tremor, , obstructive sleep apnea does not use CPAP, irritable bowel syndrome, BPH hiatal hernia. coronary artery disease with stent. Paroxysmal atrial fibrillation. Has had cardioversion. Patient was admitted to the hospital April 23 through April 26. Had presented with severe headache on the left side. Finally patient developed a rash was diagnosed with herpes zoster. Was discharged on acyclovir. Because of severe headache was given Lyrica. There was no eye involvement. Patient was to follow-up appointment with the eye doctor. Since then patient had 3 more visits to the ER on April 26, May 02, May 04. On the first visit to the ER the pain was more severe and I was more swollen. ER had called Moisés Butcher and Gregory Nolan and both declined. Patient then saw this week the eye doctor. Patient continued to have significant pain. Patient's pain has been bothering him so much that he was getting a bit confused at home per the . Also following. Found to be hypotensive. With increased appetite. Patient also has been scratching with some breakdown of skin on the scalp. Patient is accompanied by his in the ER. Patient is due to see the pain specialist. Patient himself is somewhat delirious. Will answer some questions. Review of systems: GEN.: Tired EYES: Left eyelid swollen HEENT: Rash in the left frontal area NECK: None RESPIRATORY: Bit of a congested cough CARDIOVASCULAR: GASTROINTESTINAL: Decreased appetite GENITOURINARY: None MUSCULOSKELETAL: Joint pains LYMPHATICS: None HEMATOLOGICAL: None PSYCHIATRY: Reported confused at home NEUROLOGICAL: No focal weakness Social history: lives with no smoking. Stopped drinking alcohol in 2004. Prior to that used to drink every day On examination: VITAL SIGNS: 97.9, 67, 18, 99 x 47, 95% room GENERAL APPEARANCE: Laying in bed, tired sleepy HEENT: Normal external appearance of nose and ear. Oral cavity normal. Papular rash in the distribution of V1/V2. Some breakdown of skin. From scratching EYES: Left eye covered with a gauze NECK: JVD not raised. Mass not palpable. RESPIRATORY: Respiratory effort increased, diminished breath sounds, CARDIOVASCULAR: First second sound normal, no edema. ABDOMEN: Soft. Liver and spleen not palpable. No tenderness. No mass palpable. PSYCHIATRY: Sleepy will answer some questions. A bit confused NEUROLOGICAL: Rash in the V1 V2 area of 7th nerve LYMPHATICS: No lymph nodes were palpable neck and axilla INVESTIGATIONS, reviewed in the clinical context: May 05: White count 7.3 hemoglobin 11.2 platelets 197 sodium 139 potassium 3.5 BUN 27 creatinine 1.49 EKG tracing personally reviewed by me-normal sinus rhythm Chest x-ray film personally reviewed by me-no obvious abnormality CT brain without contrast: Unremarkable Recent Brain CTA: Loss of enhancement of the proximal terminal segment of the right vertebral artery with distal recanalization. CT brain: No acute there is remote ischemic injury of the left capsular and right thalamus. Encephalomalacia and gliosis. Previous investigations: 2D echocardiogram [May 2024] EF 55 to 60%. Mild TR, AR, MR. Assessment and plan: -Acute herpes zoster in the dermatome of V1 V2. Presenting in severe pain. Rash manifest about April 25. Symptoms started a week prior to that Started on acyclovir from April 26. - Acute delirium combination of pain medications decreased appetite and pain -Postherpetic severe cephalgia from herpes zoster. Lyrica. Damian Consult pain management Dr. Estrella -Persistent atrial fibrillation with prior cardioversion amiodarone. Pradaxa. Toprol-XL -Chronic hypoxic respiratory failure Patient does use 1 to 2 L oxygen at home more as needed. - Possible secondary left eye infection. Patient seen by cash posting representative outpatient today. Follow instructions by the office. -Coronary artery disease with prior history of stent Lipitor. Pradaxa Toprol-XL -GERD Tums when necessary -Hyperlipidemia Lipitor -Essential hypertension, currently hypotensive like room decreased oral intake Hold amlodipine and Cozaar. Continue Toprol-XL -BPH, with bladder outflow obstruction Flomax -Obstructive sleep apnea does not use CPAP -Early Parkinson disorder with tremors Mirapex, primidone -Mild cognitive impairment Namenda -Irritable bowel syndrome -Bipolar depression Zoloft, -Full code Care was discussed detail with the at the bedside. Given the complexity and severity of patient's condition expect the patient to be in the hospital at least for 2 overnights. Given hypotension. Acute delirium. Past Medical History Past Medical History: Atrial Fibrillation, Coronary Artery Disease (CAD), Chest Pain / Angina, Heart Failure, Dementia, GERD/Reflux, Hyperlipidemia, Hypertension, Memory Impairment, Myocardial Infarction ([place]), Neurologic Disorder, Pneumonia, Prostate Disorder, Renal Disease, Skin Disorder, Sleep Apnea/CPAP/BIPAP Additional Past Medical History / Comment(s): early parkinson's with essential tremors, "lewy body dementia"-short term memory less, R nephrolithiasis with surgery, EDITH with no CPAP, Irritable Bowel Syndrome diarrhea off and on, pneumonia/bronchitis, BPH, blood in stool-EGD/colonoscopy were normal, past h iatal hernia(sx), past falls., hx acute kidney failure; SOB with activity Last Myocardial Infarction Date:: 06/09/13 History of Any Multi-Drug Resistant Organisms: None Reported Past Surgical History: Back Surgery, Heart Catheterization, Heart Catheterization With Stent, Hernia Repair Additional Past Surgical History / Comment(s): 05/2013 stent to LAD and then a cardiac cath which showed stent patent, Recent R kidney stone removal, 03/19/15 Laparoscopic Elizabeth fundlaplication. SKIN GRAFTS CHEST & BACK FROM BASSETT AT 13 YRS OLD., COLONOSCOPY. EGD, L [facility] eye surgery as toddler. c3 c4 fusion, c4 c5 fusion. Heart cath with Stent x2 RCA Dr. Hernandez 12/27/2024 Past Anesthesia/Blood Transfusion Reactions: No Reported Reaction Additional Past Anesthesia/Blood Transfusion Reaction / Comment(s): Pt received blood in 1967 without reaction. Date of Last Stent Placement:: 12/27/2024 Past Psychological History: Bipolar, Depression Smoking Status: Never smoker Past Alcohol Use History: None Reported Past Drug Use History: None Reported - Past Family History Mother Family Medical History: Liver Disease Additional Family Medical History / Comment(s): Mother was an alcoholic. She of cirrhosis of the liver at age 60yrs. Father Family Medical History: Cancer, Coronary Artery Disease (CAD), Myocardial Infarction ([place]) Additional Family Medical History / Comment(s): SKIN CA. Father of a [place] at age 65 yrs. Brother(s) Family Medical History: Cancer Additional Family Medical History / Comment(s): LEUKEMIA, LYMPH NODE CA AND M ULTIPLE MYELOMA. Medications and Allergies Home Medications Medication Instructions Recorded Confirmed Type Memantine [Namenda] 10 mg PO BID 02/17/20 05/05/25 History Pramipexole Di-HCl [Mirapex] 1.5 mg PO HS 02/17/20 05/05/25 History Sertraline [Zoloft] 200 mg PO DAILY 08/18/21 05/05/25 History Primidone [Mysoline] 150 mg PO DAILY 02/17/24 05/05/25 History Tamsulosin [Flomax] 0.8 mg PO DAILY 05/19/24 05/05/25 History Atorvastatin [Lipitor] 80 mg PO HS 11/04/24 05/05/25 History Metoprolol Succinate [Toprol XL] 50 mg PO DAILY 11/04/24 05/05/25 History Nitroglycerin Sl Tabs [Nitrostat] 0.4 mg SL Q5M PRN 11/04/24 05/05/25 History Dabigatran [Pradaxa] 150 mg PO BID #60 cap 11/05/24 05/05/25 Rx Amiodarone [Cordarone] 100 mg PO DAILY 12/25/24 05/05/25 History Clopidogrel [Plavix] 75 mg PO DAILY 04/23/25 05/05/25 History Furosemide [Lasix] 40 mg PO DAILY 04/23/25 05/05/25 History Losartan Potassium 100 mg PO DAILY 04/23/25 05/05/25 History amLODIPine [Norvasc] 2.5 mg PO DAILY 04/23/25 05/05/25 History Pregabalin [Lyrica] 100 mg PO BID #60 cap 04/25/25 05/05/25 Rx oxyCODONE HCL/ACETAMINOPHEN 1 tab PO Q4HR PRN 3 Days #18 tab 05/04/25 05/05/25 Rx [Percocet 10-325 mg] Cephalexin [Keflex] 500 mg PO Q12HR 05/05/25 05/05/25 History Gabapentin [Neurontin] 200 mg PO BID 05/05/25 05/05/25 History Moxifloxacin HCl [Moxifloxacin 1 drop LEFT EYE QID 05/05/25 05/05/25 History 0.5%] valACYclovir HCL [Valtrex] 1,000 mg PO TID 05/05/25 05/05/25 History Allergies Allergy/AdvReac Type Severity Reaction Status Date / Time No Known Allergies Allergy Verified 05/05/25 15:15 Physical Exam Vitals: Vital Signs Temp Pulse Resp BP Pulse Ox 05/05/25 18:00 59 L 18 99/47 95 05/05/25 16:00 56 L 20 97/75 94 L 05/05/25 15:00 56 L 18 98/69 93 L 05/05/25 14:15 57 L 18 104/64 94 L 05/05/25 13:00 56 L 18 94/66 97 05/05/25 12:36 97.9 F 57 L 18 102/81 96 05/05/25 12:15 61 16 85/59 88 L Intake and Output 05/05/25 05/05/25 05/05/25 06:59 14:59 22:59 Other: Weight 54.431 kg Results CBC & Chem 7: 05/05/25 12:54 05/05/25 12:54 Labs: Abnormal Lab Results - Last 24 Hours (Table) 05/05/25 05/05/25 05/05/25 Range/Units 12:54 12:54 12:54 RBC 3.62 L (4.40-5.60) 10*6/uL Hgb 11.2 L (13.0-17.0) g/dL Hct 34.0 L (39.6-50.0) % PT 15.4 H (10.0-12.5) sec INR 1.5 H (<1.2) APTT 45.0 H (22.0-30.0) sec Chloride 109 H (98-107) mmol/L Carbon Dioxide 21 L (22-30) mmol/L BUN 27 H (9-20) mg/dL Creatinine 1.49 H (0.66-1.25) mg/dL Glucose 113 H (74-99) mg/dL Calcium 7.9 L (8.4-10.2) mg/dL Total Protein 5.8 L (6.3-8.2) g/dL Albumin 3.1 L (3.5-5.0) g/dL
[2025-05-05] MEDS: PREGABALIN 100 MG CAP PO SCH (22:20)
[2025-05-05] MEDS: PRAMIPEXOLE 1 MG TAB PO SCH (22:20)
[2025-05-05] MEDS: LACTATED RINGERS 1,000 ML IV SCH (22:20)
[2025-05-06 08:02] LABS: Basophils # (A) 0.04 X 10*3/uL (0.00-0.10); Basophils % (A) 0.5 %; Eosinophils # (A) 0.22 X 10*3/uL (0.04-0.35); HCT 36.5 % (39.6-50.0); HGB 11.5 g/dL (13.0-17.0); Lymphocytes # (A) 1.27 X 10*3/uL (0.90-5.00); Lymphocytes % (A) 17.3 %; MCH 29.7 pg (27.0-32.0); MCHC 31.5 g/dL (32.0-37.0); MCV 94.3 FL (80.0-97.0); Monocytes # (A) 0.73 X 10*3/uL (0.20-1.00); NRBC Per 100 WBC 0 X 10*3/uL (0.00-0.01); Neutrophils # (A) 5.05 X 10*3/uL (1.80-7.70); Neutrophils % (A) 68.9 %; Platelet Count 227 X 10*3/uL (140-440); RBC 3.87 X 10*6/uL (4.40-5.60); RDW 14.6 % (11.5-14.5); WBC 7.33 X 10*3/uL (4.50-10.00)
[2025-05-06 08:45] LABS: BUN/Creat Ratio 20.45 Ratio (12.00-20.00); Blood Urea Nitrogen 22.5 mg/dL (9.0-27.0); Glucose 106 mg/dL (70-110)
[2025-05-06 08:46] LABS: ALT 30 U/L (10-49); AST 20 U/L (14-35); Albumin 3.5 g/dL (3.8-4.9); Alkaline Phosphatase 65 U/L (41-126); Calcium 8.2 mg/dL (8.7-10.3); Carbon Dioxide 26.2 mmol/L (21.6-31.8); Chloride 108 mmol/L (96-109); Globulin 2.5 g/dL (1.6-3.3); Potassium 4.1 mmol/L (3.5-5.5); Sodium 145 mmol/L (135-145); Total Bilirubin 0.3 mg/dL (0.3-1.2)
[2025-05-06] MEDS: TAMSULOSIN 0.4 MG CAP.ER.24H PO SCH (08:50)
[2025-05-06] MEDS: METOPROLOL SUCCINATE (ER) 50 MG TAB.ER.24H PO SCH (08:50)
[2025-05-06] MEDS: CLOPIDOGREL 75 MG TAB PO SCH (08:50)
[2025-05-06] MEDS ORDERED: FUROSEMIDE 40 MG TAB PO SCH (09:00)
[2025-05-06] MEDS ORDERED: amLODIPine 2.5 MG TAB PO SCH (09:00)
[2025-05-06] MEDS ORDERED: LOSARTAN 50 MG TAB PO SCH (09:00)
[2025-05-06] MEDS: DABIGATRAN 150 MG CAP PO SCH (09:03)
[2025-05-06] MEDS: PRIMIDONE 50 MG TAB PO SCH (09:03)
[2025-05-06] MEDS: SERTRALINE 100 MG TAB PO SCH (09:03)
[2025-05-06] MEDS: AMIODARONE 100 MG TAB PO SCH (09:04)
--- NOTE | 2025-05-06 10:35 | P.PAINCN ---
History of Present Illness - History of Present Illness This is a 70-year-old male with multiple comorbid conditions. Pain service has been consulted for pain control for acute herpes zoster. Patient has got active vesicles ruptured vesicles in left forehead and top of the head. Patient relates this is going on for about 3 weeks. Describes the pain as continuous burning aching in character. Intensity up to 8/10. No particular activity makes his pain worse or better. Patient also complains of decreased vision in his left eye. Past Medical History Past Medical History: Atrial Fibrillation, Coronary Artery Disease (CAD), Chest Pain / Angina, Heart Failure, Dementia, GERD/Reflux, Hyperlipidemia, Hypertension, Memory Impairment, Myocardial Infarction ([place]), Neurologic Disorder, Pneumonia, Prostate Disorder, Renal Disease, Skin Disorder, Sleep Apnea/CPAP/BIPAP Additional Past Medical History / Comment(s): early parkinson's with essential tremors, "lewy body dementia"-short term memory less, R nephrolithiasis with surgery, EDITH with no CPAP, Irritable Bowel Syndrome diarrhea off and on, pneumonia/bronchitis, BPH, blood in stool-EGD/colonoscopy were normal, past hiatal hernia(sx), past falls., hx acute kidney failure; SOB with activity Last Myocardial Infarction Date:: 06/09/13 History of Any Multi-Drug Resistant Organisms: None Reported Past Surgical History: Back Surgery, Heart Catheterization, Heart Catheterization With Stent, Hernia Repair Additional Past Surgical History / Comment(s): 05/2013 stent to LAD and then a cardiac cath which showed stent patent, Recent R kidney stone removal, 03/19/15 Laparoscopic Elizabeth fundlaplication. SKIN GRAFTS CHEST & BACK FROM BASSETT AT 13 YRS OLD., COLONOSCOPY. EGD, L [facility] eye surgery as toddler. c3 c4 fusion, c4 c5 fusion. Heart cath with Stent x2 RCA Dr. Hernandez 12/27/2024 Past Anesthesia/Blood Transfusion Reactions: No Reported Reaction Additional Past Anesthesia/Blood Transfusion Reaction / Comm: Pt received blood in 1967 without reaction. Date of Last Stent Placement:: 12/27/2024 Past Psychological History: Bipolar, Depression Additional Psychological History / Comment(s): Pt lives with his . He has depression but states medication for this is working. He is normally independent. Smoking Status: Never smoker Past Alcohol Use History: None Reported Additional Past Alcohol Use History / Comment(s): Pt quit drinking alcohol in 2004(drank almost on daily basis) Past Drug Use History: None Reported - Past Family History Mother Family Medical History: Liver Disease Additional Family Medical History / Comment(s): Mother was an alcoholic. She of cirrhosis of the liver at age 60yrs. Father Family Medical History: Cancer, Coronary Artery Disease (CAD), Myocardial Infarction ([place]) Additional Family Medical History / Comment(s): SKIN CA. Father of a [place] at age 65 yrs. Brother(s) Family Medical History: Cancer Additional Family Medical History / Comment(s): LEUKEMIA, LYMPH NODE CA AND MULTIPLE MYELOMA. Medications and Allergies Home Medications Medication Instructions Recorded Confirmed Type Memantine [Namenda] 10 mg PO BID 02/17/20 05/05/25 History Pramipexole Di-HCl [Mirapex] 1.5 mg PO HS 02/17/20 05/05/25 History Sertraline [Zoloft] 200 mg PO DAILY 08/18/21 05/05/25 History Primidone [Mysoline] 150 mg PO DAILY 02/17/24 05/05/25 History Tamsulosin [Flomax] 0.8 mg PO DAILY 05/19/24 05/05/25 History Atorvastatin [Lipitor] 80 mg PO HS 11/04/24 05/05/25 History Metoprolol Succinate [Toprol XL] 50 mg PO DAILY 11/04/24 05/05/25 History Nitroglycerin Sl Tabs [Nitrostat] 0.4 mg SL Q5M PRN 11/04/24 05/05/25 History Dabigatran [Pradaxa] 150 mg PO BID #60 cap 11/05/24 05/05/25 Rx Amiodarone [Cordarone] 100 mg PO DAILY 12/25/24 05/05/25 History Clopidogrel [Plavix] 75 mg PO DAILY 04/23/25 05/05/25 History Furosemide [Lasix] 40 mg PO DAILY 04/23/25 05/05/25 History Losartan Potassium 100 mg PO DAILY 04/23/25 05/05/25 History amLODIPine [Norvasc] 2.5 mg PO DAILY 04/23/25 05/05/25 History Pregabalin [Lyrica] 100 mg PO BID #60 cap 04/25/25 05/05/25 Rx oxyCODONE HCL/ACETAMINOPHEN 1 tab PO Q4HR PRN 3 Days #18 tab 05/04/25 05/05/25 Rx [Percocet 10-325 mg] Cephalexin [Keflex] 500 mg PO Q12HR 05/05/25 05/05/25 History Gabapentin [Neurontin] 200 mg PO BID 05/05/25 05/05/25 History Moxifloxacin HCl [Moxifloxacin 1 drop LEFT EYE QID 05/05/25 05/05/25 History 0.5%] valACYclovir HCL [Valtrex] 1,000 mg PO TID 05/05/25 05/05/25 History Allergies Allergy/AdvReac Type Severity Reaction Status Date / Time No Known Allergies Allergy Verified 05/05/25 15:15 Physical Exam Vitals: Vital Signs Temp Pulse Pulse Pulse Pulse Pulse Resp 05/06/25 07:00 98.8 F 58 L 16 05/06/25 01:24 97.6 F 61 17 05/05/25 22:17 68 67 58 L 05/05/25 20:51 67 18 05/05/25 18:00 59 L 18 05/05/25 16:00 56 L 20 05/05/25 15:00 56 L 18 05/05/25 14:15 57 L 18 05/05/25 13:00 56 L 18 05/05/25 12:36 97.9 F 57 L 18 05/05/25 12:15 61 16 BP BP BP BP BP Pulse Ox 05/06/25 07:00 148/76 94 L 05/06/25 01:24 156/87 94 L 05/05/25 22:17 151/78 104/69 156/89 96 05/05/25 20:51 117/74 94 L 05/05/25 18:00 99/47 95 05/05/25 16:00 97/75 94 L 05/05/25 15:00 98/69 93 L 05/05/25 14:15 104/64 94 L 05/05/25 13:00 94/66 97 05/05/25 12:36 102/81 96 05/05/25 12:15 85/59 88 L Intake and Output 05/05/25 05/06/25 05/06/25 22:59 06:59 14:59 Output Total 200 800 Balance -200 -800 Output: Urine 200 800 Other: Voiding Method External Catheter External Catheter # Voids 0 Weight 54.431 kg Limited physical examination. Acute herpes zoster with vesicles and ruptured vesicles. Involves V1 of the trigeminal nerve, supraorbital orbital nerve, occipital nerve on the left side. With possible involvement of left eye. Results CBC & Chem 7: 05/06/25 05:14 05/06/25 05:14 Labs: Abnormal Lab Results - Last 24 Hours (Table) 05/05/25 05/05/25 05/05/25 Range/Units 12:54 12:54 12:54 RBC 3.62 L (4.40-5.60) 10*6/uL Hgb 11.2 L (13.0-17.0) g/dL Hct 34.0 L (39.6-50.0) % MCHC (32.0-37.0) g/dL RDW (11.5-14.5) % PT 15.4 H (10.0-12.5) sec INR 1.5 H (<1.2) APTT 45.0 H (22.0-30.0) sec Chloride 109 H (98-107) mmol/L Carbon Dioxide 21 L (22-30) mmol/L BUN 27 H (9-20) mg/dL Creatinine 1.49 H (0.66-1.25) mg/dL BUN/Creatinine Ratio (12.00-20.00) Ratio Glucose 113 H (74-99) mg/dL Calcium 7.9 L (8.4-10.2) mg/dL Total Protein 5.8 L (6.3-8.2) g/dL Albumin 3.1 L (3.5-5.0) g/dL Albumin/Globulin Ratio (1.60-3.17) Ratio 05/06/25 05/06/25 Range/Units 05:14 05:14 RBC 3.87 L (4.40-5.60) 10*6/uL Hgb 11.5 L (13.0-17.0) g/dL Hct 36.5 L (39.6-50.0) % MCHC 31.5 L (32.0-37.0) g/dL RDW 14.6 H (11.5-14.5) % PT (10.0-12.5) sec INR (<1.2) APTT (22.0-30.0) sec Chloride (98-107) mmol/L Carbon Dioxide (22-30) mmol/L BUN (9-20) mg/dL Creatinine (0.66-1.25) mg/dL BUN/Creatinine Ratio 20.45 H (12.00-20.00) Ratio Glucose (74-99) mg/dL Calcium 8.2 L (8.4-10.2) mg/dL Total Protein 6.0 L (6.3-8.2) g/dL Albumin 3.5 L (3.5-5.0) g/dL Albumin/Globulin Ratio 1.40 L (1.60-3.17) Ratio Assessment and Plan Assessment: Acute Antonio zoster involving left-sided V1 branch of trigeminal nerve, supraorbital nerve, occipital nerve with involvement of left eye. Plan: Patient is already on antiviral medication. On multiple pain medications and significant comorbid conditions including coronary artery disease and recent stent. May consider followings. 1. Add Cymbalta 60 mg p.o. twice a day. May gradually increase the dose if needed. 2. Discontinue Zoloft(both Zoloft and Cymbalta are serotonin reuptake inhibitors.) 3. Increase Lyrica 100 mg 3 times a day. Dose needs to be reduced if renal function deteriorates. 4. Discontinue gabapentin. 5. Apply Lidoderm patch in nonopen wound areas, if possible. PQRS Measure Charge Sheet - Pain Location Left Head Non-Pharmacological Interventions: Distraction, Inactivity, Position/Reposition Pharmacological Interventions: PRN Medication PQRS Narrative: Smoking Status Never smoker Blood Pressure [Left Arm] 148/76 Blood Pressure [Right Arm 104/69 Standing] Blood Pressure [Right Arm 151/78 Sitting] Blood Pressure [Right Arm 156/87 Supine] Blood Pressure 117/74 Pain Intensity [Left Head] 10 Pain Intensity 8 Pain Scale Used Numeric (1 - 10) Scale Used Numeric (1 - 10) Home Medications: Ambulatory Orders Memantine [Namenda] 10 mg PO BID 02/17/20 Pramipexole Di-HCl [Mirapex] 1.5 mg PO HS 02/17/20 Sertraline [Zoloft] 200 mg PO DAILY 08/18/21 Primidone [Mysoline] 150 mg PO DAILY 02/17/24 Tamsulosin [Flomax] 0.8 mg PO DAILY 05/19/24 Atorvastatin [Lipitor] 80 mg PO HS 11/04/24 Metoprolol Succinate [Toprol XL] 50 mg PO DAILY 11/04/24 Nitroglycerin Sl Tabs [Nitrostat] 0.4 mg SL Q5M PRN 11/04/24 Dabigatran [Pradaxa] 150 mg PO BID #60 cap 11/05/24 Amiodarone [Cordarone] 100 mg PO DAILY 12/25/24 Clopidogrel [Plavix] 75 mg PO DAILY 04/23/25 Furosemide [Lasix] 40 mg PO DAILY 04/23/25 Losartan Potassium 100 mg PO DAILY 04/23/25 amLODIPine [Norvasc] 2.5 mg PO DAILY 04/23/25 Pregabalin [Lyrica] 100 mg PO BID #60 cap 04/25/25 oxyCODONE HCL/ACETAMINOPHEN [Percocet 10-325 mg] 1 tab PO Q4HR PRN 3 Days #18 tab 05/04/25 Cephalexin [Keflex] 500 mg PO Q12HR 05/05/25 Gabapentin [Neurontin] 200 mg PO BID 05/05/25 Moxifloxacin HCl [Moxifloxacin 0.5%] 1 drop LEFT EYE QID 05/05/25 valACYclovir HCL [Valtrex] 1,000 mg PO TID 05/05/25
--- NOTE | 2025-05-06 11:18 | P.CN ---
Psychiatric Consult - . Consult date: 05/06/25 Consult:: 05/06/25 10:53 IDENTIFYING DATA: This patient is a 70-year-old male, he is , lives in a house with his , he has 3 kids REASON FOR REFERRAL: Psychiatry was consulted for "uncontrolled anxiety" HISTORY OF PRESENT ILLNESS: The patient presented to the hospital initially on 05/05 for a supposed syncopal episode. Patient apparently was restless, stated that he had a history of anxiety and bipolar disorder. Patient is currently being treated for open wounds and shingles. Patient's nurse states that patient has been fidgety and restless, picking at his wounds on his head. Patient was seen lying in bed today agreeable to speak to bond underwriter. He did appear to be fairly restless during conversation, he was closing his eyes at times and picking at his scabs on his hand. He is claiming that "there is a lot of things going on" and states that he has been feeling more anxious lately, was rambling at times. Mildly irritated during conversation. He is endorsing a chronic history of depression. He did know his name and age and the hospital values him. He did not maintain a state. He was complaining of pain and has had recovering himself. Denies any paranoia, claims that his sleep has been poor appetite has been fair. At this time patient denies any current suicidal or homical ideations, intent or plan. Patient denies any auditory, visual hallucinations and denies any paranoia or delusions. Patients admits to using no recreational drugs PAST PSYCHIATRIC HISTORY: Patient has a a history of bipolar disorder, anxiety. Patient is currently on Zoloft 200 mg daily for mood/anxiety. Patient denies any previous psychiatric hospitalizations. Patient denies any psychiatric outpatient follow-up. Patient denies any history of suicide attempts in the past. PAST MEDICAL HISTORY:Past Medical History: Atrial Fibrillation, Coronary Artery Disease (CAD), Chest Pain / Angina, Heart Failure, Dementia, GERD/Reflux, Hyperlipidemia, Hypertension, Memory Impairment, Myocardial Infarction ([place]), Neurologic Disorder, Pneumonia, Prostate Disorder, Renal Disease, Skin Disorder, Sleep Apnea/CPAP/BIPAP Additional Past Medical History / Comment(s): early parkinson's with essential tremors, "lewy body dementia"-short term memory less, R nephrolithiasis with surgery, EDITH with no CPAP, Irritable Bowel Syndrome diarrhea off and on, pneumonia/bronchitis, BPH, blood in stool-EGD/colonoscopy were normal, past hiatal hernia(sx), past falls., hx acute kidney failure; SOB with activity Last Myocardial Infarction Date:: 06/09/13 History of Any Multi-Drug Resistant Organisms: None Reported Past Surgical History: Back Surgery, Heart Catheterization, Heart Catheterization With Stent, Hernia Repair Additional Past Surgical History / Comment(s): 05/2013 stent to LAD and then a cardiac cath which showed stent patent, Recent R kidney stone removal, 03/19/15 Laparoscopic Elizabeth fundlaplication. SKIN GRAFTS CHEST & BACK FROM BASSETT AT 13 YRS OLD., COLONOSCOPY. EGD, L lazy eye surgery as toddler. c3 c4 fusion, c4 c5 fusion. Heart cath with Stent x2 RCA Dr. Hernandez 12/27/2024 Past Anesthesia/Blood Transfusion Reactions: No Reported Reaction Additional Past Anesthesia/Blood Transfusion Reaction / Comment(s): Pt received blood in 1967 without reaction. Date of Last Stent Placement:: 12/27/2024 Past Psychological History: Bipolar, Depression Smoking Status: Never smoker Past Alcohol Use History: None Reported Past Drug Use History: None Reported ALLERGIES: as per EMR. CHEMICAL DEPENDENCY HISTORY: as per HPI. FAMILY PSYCHIATRIC/SUBSTANCE USE HISTORY: Claims that his grandson committed suicide in the past. SOCIAL HISTORY: Patient was born and raised in [facility]. Claims that he completed up to 10th grade in school. 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 Denies any legal history. Claims that he is currently and lives with his in a house, they have 3 kids. MENTAL STATUS EXAM: General Appearance: Patient appears to be mildly overweight, bald, several scabs and open wounds on his forehead. Stated age is alert, pleasant, and attempts to be cooperative. Patient appears to have fair hygiene and grooming wearing hospital gown with poor eye contact. Behavior: Patient is fairly anxious lying in bed without any agitated behavior. For concentration Speech: Patient's speech is fluent and nonpressured. Rambling at times Mood/Affect: Patient reports their mood is depressed and endorsing anxiety, affect is congruent Suicidality/Homicidality: Patient denies having any suicidal or homicidal ideation intent or plan. Perceptions: Patient denies any visual hallucinations and denies any auditory hallucinations Though content/process: There is no evidence of any delusional thought content and thought process is linear and goal-directed. Rambling at times. Memory and concentration: AOX3, grossly intact for the purposes of this session. Can spell "WORLD" backwards Judgment and insight: fair IMPRESSIONS: Anxiety disorder unspecified Rule out delirium History of depressive disorder, rule out bipolar depression PLAN: -At this time patient DOES NOT meet criteria for inpatient psychiatric admission. -Delirium precautions recommended with patient including - avoiding use of narcotics and ORGANIZATIONAL PSYCHOLOGIST sedatives, limit anticholinergic medications when possible, frequent re-orientation, minimize use of restraints, open window shades during the day and close them at night -Would recommend the following medication changes/additions: Increase Zoloft to 250 mg daily for mood/anxiety. Will give 1 dose of Seroquel 50 mg now for severe anxiety, scheduled 50 mg nightly for mood stabilization/severe anxiety/insomnia. -new car make ready worker to provide patient with outpatient mental health/psychiatry resources for appropriate follow up upon discharge -Communicated plan to patient's nurse -Will continue to follow along as needed. -Please contact with any questions. 05/06/25 11:11
[2025-05-06] MEDS: QUEtiapine 50 MG TAB PO STA (12:41)
[2025-05-06] MEDS: SERTRALINE 50 MG TAB PO STA (12:42)
[2025-05-06 12:52] VITALS: BMI 15.4
--- NOTE | 2025-05-06 12:58 | P.CRDCN ---
History of Present Illness History of present illness: HISTORY OF PRESENT ILLNESS: This is a 70-year-old male with a past medical history significant for coronary artery disease with previous stenting, paroxysmal atrial fibrillation, sinus ta chycardia, hypertension, hyperlipidemia, congestive heart failure, and carotid stenosis. Patient follows in the office with Dr. Hernandez. We have been asked to see the patient in consultation for hypotension. Patient examined at the bedside. Patient is a poor historian. He is hard to understand and rambling at the time of examination. Patient states he was driving in the car with his family when he started to feel nauseous. He states he did not pass out when we first asked him. Then, he changed his story and states he has passed out multiple times. He states his head his hurting this morning. He reports mild SOB and mild chest pressure. Patient was found to be hypotensive when he first came to the ER with a BP in the 80s. DIAGNOSTICS: - EKG reveals sinus bradycardia with no signs of acute ischemia. - Chest xray negative for acute process. - Laboratory data: WBC 7.33. Hemoglobin 11.5. Platelet count 227. INR 1.5. D-dimer 0.45. Sodium 139. Potassium 3.5. BUN 27. Creatinine 1.49. Magnesium 2.3. Troponin negative x 3. - Current home cardiac medications include Lipitor 80 mg at night, amlodipine 2.5 mg daily, metoprolol succinate 50 mg daily, losartan 100 mg daily, Lasix 40 mg daily, Pradaxa 150 mg twice a day, Plavix 75 mg daily, amiodarone 100 mg daily. - Most recent echocardiogram obtained in May 2024 revealed ejection fraction 55 to 60%, mild aortic regurgitation, mild tricuspid regurgitation, mild mitral regurgitation - Cardiac catheterization history: December 2024 revealing stenting of distal and proximal RCA REVIEW OF SYSTEMS: At the time of my exam: CONSTITUTIONAL: Denies fever or chills. HEENT: Denies blurred vision, vision changes, or eye pain. Denies hemoptysis CARDIOVASCULAR: Denies chest pain. Denies orthopnea. Denies PND. Denies palpitations RESPIRATORY: Denies shortness of breath. GASTROINTESTINAL: Denies abdominal pain. Denies nausea or vomiting. HEMATOLOGIC: Denies bleeding disorders. GENITOURINARY: Denies any blood in urine. SKIN: Denies pruitis. Denies rash. PHYSICAL EXAM: VITAL SIGNS: Reviewed. GENERAL: Well-developed in no acute distress. HEENT: Head is normocephalic. Pupils are equal, round. Sclerae anicteric. Mucous membranes of the mouth are moist. Neck supple. No JVD or thyromegaly LUNGS: Respirations even and unlabored. Lungs essentially clear to auscultation bilaterally. HEART: Regular rate and rhythm. S1 and S2 heard. ABDOMEN: Soft. Nondistended. Nontender. EXTREMITIES: Normal range of motion. No clubbing or cyanosis. Peripheral pulses intact. No lower extremity edema NEUROLOGIC: Awake and alert. Oriented x 3. ASSESSMENT: Questionable syncope Hypotension on admission, improved Acute kidney injury Shingles of left face Coronary artery disease with previous stenting Paroxysmal atrial fibrillation, on Pradaxa outpatient History of sinus tachycardia Hypertension Hyperlipidemia Congestive heart failure with preserved EF, currently euvolemic History of carotid stenosis PLAN: Obtain 2D echo to assess cardiac structure and function Resume home cardiac medications Continue to monitor blood pressure Continue telemetry monitoring Further recommendations pending patient course Nurse practitioner note has been reviewed by physician. Signing provider agrees with the documented findings, assessment, and plan of care documented by PATHOLOGY TRANSCRIPTIONIST as a scribe. Past Medical History Past Medical History: Atrial Fibrillation, Coronary Artery Disease (CAD), Chest Pain / Angina, Heart Failure, Dementia, GERD/Reflux, Hyperlipidemia, Hypertension, Memory Impairment, Myocardial Infarction ([place]), Neurologic Disorder, Pneumonia, Prostate Disorder, Renal Disease, Skin Disorder, Sleep Apnea/CPAP/BIPAP Additional Past Medical History / Comment(s): early parkinson's with essential tremors, "lewy body dementia"-short term memory less, R nephrolithiasis with surgery, EDITH with no CPAP, Irritable Bowel Syndrome diarrhea off and on, pneumonia/bronchitis, BPH, blood in stool-EGD/colonoscopy were normal, past hiatal hernia(sx), past falls., hx acute kidney failure; SOB with activity Last Myocardial Infarction Date:: 06/09/13 History of Any Multi-Drug Resistant Organisms: None Reported Past Surgical History: Back Surgery, Heart Catheterization, Heart Catheterization With Stent, Hernia Repair Additional Past Surgical History / Comment(s): 05/2013 stent to LAD and then a cardiac cath which showed stent patent, Recent R kidney stone removal, 03/19/15 Laparoscopic Elizabeth fundlaplication. SKIN GRAFTS CHEST & BACK FROM BASSETT AT 13 YRS OLD., COLONOSCOPY. EGD, L lazy eye surgery as toddler. c3 c4 fusion, c4 c5 fusion. Heart cath with Stent x2 RCA Dr. Hernandez 12/27/2024 Past Anesthesia/Blood Transfusion Reactions: No Reported Reaction Additional Past Anesthesia/Blood Transfusion Reaction / Comment(s): Pt received blood in 1967 without reaction. Date of Last Stent Placement:: 12/27/2024 Past Psychological History: Bipolar, Depression Additional Psychological History / Comment(s): Pt lives with his . He has depression but states medication for this is working. He is normally independent. Smoking Status: Never smoker Past Alcohol Use History: None Reported Additional Past Alcohol Use History / Comment(s): Pt quit drinking alcohol in 2004(drank almost on daily basis) Past Drug Use History: None Reported - Past Family History Mother Family Medical History: Liver Disease Additional Family Medical History / Comment(s): Mother was an alcoholic. She of cirrhosis of the liver at age 60yrs. Father Family Medical History: Cancer, Coronary Artery Disease (CAD), Myocardial Infarction ([place]) Additional Family Medical History / Comment(s): SKIN CA. Father of a [place] at age 65 yrs. Brother(s) Family Medical History: Cancer Additional Family Medical History / Comment(s): LEUKEMIA, LYMPH NODE CA AND MULTIPLE MYELOMA. Medications and Allergies Home Medications Medication Instructions Recorded Confirmed Type Memantine [Namenda] 10 mg PO BID 02/17/20 05/05/25 History Pramipexole Di-HCl [Mirapex] 1.5 mg PO HS 02/17/20 05/05/25 History Sertraline [Zoloft] 200 mg PO DAILY 08/18/21 05/05/25 History Primidone [Mysoline] 150 mg PO DAILY 02/17/24 05/05/25 History Tamsulosin [Flomax] 0.8 mg PO DAILY 05/19/24 05/05/25 History Atorvastatin [Lipitor] 80 mg PO HS 11/04/24 05/05/25 History Metoprolol Succinate [Toprol XL] 50 mg PO DAILY 11/04/24 05/05/25 History Nitroglycerin Sl Tabs [Nitrostat] 0.4 mg SL Q5M PRN 11/04/24 05/05/25 History Dabigatran [Pradaxa] 150 mg PO BID #60 cap 11/05/24 05/05/25 Rx Amiodarone [Cordarone] 100 mg PO DAILY 12/25/24 05/05/25 History Clopidogrel [Plavix] 75 mg PO DAILY 04/23/25 05/05/25 History Furosemide [Lasix] 40 mg PO DAILY 04/23/25 05/05/25 History Losartan Potassium 100 mg PO DAILY 04/23/25 05/05/25 History amLODIPine [Norvasc] 2.5 mg PO DAILY 04/23/25 05/05/25 History Pregabalin [Lyrica] 100 mg PO BID #60 cap 04/25/25 05/05/25 Rx oxyCODONE HCL/ACETAMINOPHEN 1 tab PO Q4HR PRN 3 Days #18 tab 05/04/25 05/05/25 Rx [Percocet 10-325 mg] Cephalexin [Keflex] 500 mg PO Q12HR 05/05/25 05/05/25 History Gabapentin [Neurontin] 200 mg PO BID 05/05/25 05/05/25 History Moxifloxacin HCl [Moxifloxacin 1 drop LEFT EYE QID 05/05/25 05/05/25 History 0.5%] valACYclovir HCL [Valtrex] 1,000 mg PO TID 05/05/25 05/05/25 History Allergies Allergy/AdvReac Type Severity Reaction Status Date / Time No Known Allergies Allergy Verified 05/05/25 15:15 Physical Exam Vitals: Vital Signs Temp Pulse Pulse Pulse Pulse Pulse Resp 05/06/25 07:00 98.8 F 58 L 16 05/06/25 01:24 97.6 F 61 17 05/05/25 22:17 68 67 58 L 05/05/25 20:51 67 18 05/05/25 18:00 59 L 18 05/05/25 16:00 56 L 20 05/05/25 15:00 56 L 18 05/05/25 14:15 57 L 18 05/05/25 13:00 56 L 18 05/05/25 12:36 97.9 F 57 L 18 05/05/25 12:15 61 16 BP BP BP BP BP Pulse Ox 05/06/25 07:00 148/76 94 L 05/06/25 01:24 156/87 94 L 05/05/25 22:17 151/78 104/69 156/89 96 05/05/25 20:51 117/74 94 L 05/05/25 18:00 99/47 95 05/05/25 16:00 97/75 94 L 05/05/25 15:00 98/69 93 L 05/05/25 14:15 104/64 94 L 05/05/25 13:00 94/66 97 05/05/25 12:36 102/81 96 05/05/25 12:15 85/59 88 L Intake and Output 05/05/25 05/06/25 05/06/25 22:59 06:59 14:59 Output Total 200 Balance -200 Output: Urine 200 Other: Voiding Method External Catheter External Catheter # Voids 0 Weight 54.431 kg Results 05/06/25 05:14 05/06/25 05:14 Cardiac Enzymes 05/05/25 05/05/25 05/05/25 Range/Units 12:54 12:54 15:46 AST 43 (17-59) U/L Troponin I 0.022 0.016 (0.000-0.034) ng/mL 05/05/25 Range/Units 18:51 AST (17-59) U/L Troponin I 0.016 (0.000-0.034) ng/mL Coagulation 05/05/25 Range/Units 12:54 PT 15.4 H (10.0-12.5) sec APTT 45.0 H (22.0-30.0) sec CBC 05/05/25 05/06/25 Range/Units 12:54 05:14 WBC 7.36 7.33 (4.50-10.00) 10*3/uL RBC 3.62 L 3.87 L (4.40-5.60) 10*6/uL Hgb 11.2 L 11.5 L (13.0-17.0) g/dL Hct 34.0 L 36.5 L (39.6-50.0) % Plt Count 197 227 (140-440) 10*3/uL Comprehensive Metabolic Panel 05/05/25 Range/Units 12:54 Sodium 139 (137-145) mmol/L Potassium 3.5 (3.5-5.1) mmol/L Chloride 109 H (98-107) mmol/L Carbon Dioxide 21 L (22-30) mmol/L BUN 27 H (9-20) mg/dL Creatinine 1.49 H (0.66-1.25) mg/dL Glucose 113 H (74-99) mg/dL Calcium 7.9 L (8.4-10.2) mg/dL AST 43 (17-59) U/L ALT 30 (4-49) U/L Alkaline Phosphatase 66 (38-126) U/L Total Protein 5.8 L (6.3-8.2) g/dL Albumin 3.1 L (3.5-5.0) g/dL Current Medications Generic Name Dose Route Start Last Admin Trade Name Freq PRN Reason Stop Dose Admin Hydrocodone Bitart/Acetaminophen 1 each 05/05/25 15:26 05/06/25 03:26 Hydrocodone/Apap 5-325mg 1 Each Tab PO 1 each Q4HR PRN Administration Moderate Pain (Scale 4 to 6) Amiodarone HCl 100 mg 05/06/25 09:00 Amiodarone 100 Mg Tab PO DAILY [facility] Atorvastatin Calcium 80 mg 05/05/25 21:00 05/05/25 20:47 Atorvastatin 80 Mg Tab PO 80 mg HS [facility] Administration Clopidogrel Bisulfate 75 mg 05/06/25 09:00 Clopidogrel 75 Mg Tab PO DAILY [facility] Hydromorphone HCl 0.5 mg 05/05/25 15:26 Hydromorphone 0.5 Mg/0.5 Ml Syringe IVP 05/06/25 09:00 Q3HR PRN Moderate Pain (Scale 4 to 6) Lactated Ringer's 1,000 mls @ 125 mls/hr 05/05/25 21:15 05/06/25 05:21 Lactated Ringers IV Not Given .Q8H [facility] Metoprolol Succinate 50 mg 05/06/25 09:00 Metoprolol Succinate (Er) 50 Mg Tab.Er.24h PO DAILY [facility] Moxifloxacin HCl 1 drops 05/05/25 18:00 05/05/25 22:21 Moxifloxacin Hcl 0.5% Drops 3 Ml Btl LEFT EYE 1 drops QID [facility] Administration Naloxone HCl 0.2 mg 05/05/25 15:26 Naloxone 0.4 Mg/Ml 1 Ml Vial IV Q2M PRN Opioid Reversal Oxycodone/Acetaminophen 1 each 05/05/25 15:29 Oxycodone-Apap 10-325mg 1 Each Tab PO Q4HR PRN Pain Pramipexole Dihydrochloride 1.5 mg 05/05/25 21:00 05/05/25 22:20 Pramipexole 1 Mg Tab PO 1.5 mg HS [facility] Administration Pregabalin 100 mg 05/05/25 21:00 05/05/25 22:20 Pregabalin 100 Mg Cap PO 100 mg BID [facility] Administration Primidone 150 mg 05/06/25 09:00 Primidone 50 Mg Tab PO DAILY [facility] Sertraline HCl 200 mg 05/06/25 09:00 Sertraline 100 Mg Tab PO DAILY [facility] Tamsulosin HCl 0.8 mg 05/06/25 09:00 Tamsulosin 0.4 Mg Cap.Er.24h PO DAILY [facility] Tramadol HCl 50 mg 05/05/25 15:26 Tramadol 50 Mg Tab PO Q6H PRN Moderate Pain (Scale 4 to 6) Valacyclovir HCl 1,000 mg 05/05/25 16:00 05/05/25 22:20 Valacyclovir Hcl 1,000 Mg Tablet PO 05/10/25 22:01 1,000 mg TID [facility] Administration Protocol Intake and Output 05/05/25 05/06/25 05/06/25 22:59 06:59 14:59 Output Total 200 Balance -200 Output: Urine 200 Other: Voiding Method External Catheter External Catheter # Voids 0 Weight 54.431 kg 05/06/25 05:14 05/05/25 12:54
--- NOTE | 2025-05-06 16:21 | P.PN ---
Progress Note - Text Progress Note Date: 05/06/25 Chief Complaint: Hypotension Very pleasant 70-year-old patient of Dr. Gutierrez. Chronic medical conditions include some cognitive impairment, GERD, hyperlipidemia, hypertension, early Parkinson's versus essential tremor, , obstructive sleep apnea does not use CPAP, irritable bowel syndrome, BPH hiatal hernia. coronary artery disease with stent. Paroxysmal atrial fibrillation. Has had cardioversion. Patient was admitted to the hospital April 23 through April 26. Had presented with severe headache on the left side. Finally patient developed a rash was diagnosed with herpes zoster. Was discharged on acyclovir. Because of severe headache was given Lyrica. There was no eye involvement. Patient was to follow-up appointment with the eye doctor. Since then patient had 3 more visits to the ER on April 26, May 02, May 04. On the first visit to the ER the pain was more severe and I was more swollen. ER had called Moisés Butcher and Gregory Nolan and both declined. Patient then saw this week the eye doctor. Patient continued to have significant pain. Patient's pain has been bothering him so much that he was getting a bit confused at home per the . Also following. Found to be hypotensive. With increased appetite. Patient also has been scratching with some breakdown of skin on the scalp. Patient is accompanied by his in the ER. Patient is due to see the pain specialist. Patient himself is somewhat delirious. Will answer some questions. May 06: Patient received IV fluids. Creatinine much better. Did eat much better. Able to hold a conversation much better. Delirium improved was seen by psychiatry. His increase of Zoloft 2 to 50 mg a day. Neurontin was discontinued. Seen by pain management team. Lyrica to be increased to 3 times a day. Will use topical bacitracin on the scalp areas where patient scratched himself. Active Medications Hydrocodone Bitart/Acetaminophen (Hydrocodone/Apap 5-325mg 1 Each Tab) 1 each PO Q4HR PRN PRN Reason: Moderate Pain (Scale 4 to 6) Last Admin: 05/06/25 12:42 Dose: 1 each Amiodarone HCl (Amiodarone 100 Mg Tab) 100 mg PO DAILY [facility] Last Admin: 05/06/25 09:04 Dose: Not Given Atorvastatin Calcium (Atorvastatin 80 Mg Tab) 80 mg PO HS [facility] Last Admin: 05/05/25 20:47 Dose: 80 mg Bacitracin (Bacitracin Oint 1 Each Packet) 1 each TOPICAL TID [facility]; Protocol Clopidogrel Bisulfate (Clopidogrel 75 Mg Tab) 75 mg PO DAILY [facility] Last Admin: 05/06/25 08:50 Dose: 75 mg Dabigatran (Dabigatran 150 Mg Cap) 150 mg PO BID [facility]; Protocol Last Admin: 05/06/25 09:03 Dose: 150 mg Lactated Ringer's (Lactated Ringers) 500 mls @ 75 mls/hr IV .Q6H40M [facility] Metoprolol Succinate (Metoprolol Succinate (Er) 50 Mg Tab.Er.24h) 50 mg PO DAILY [facility] Last Admin: 05/06/25 08:50 Dose: 50 mg Moxifloxacin HCl (Moxifloxacin Hcl 0.5% Drops 3 Ml Btl) 1 drops LEFT EYE QID [facility] Last Admin: 05/06/25 15:27 Dose: 1 drops Naloxone HCl (Naloxone 0.4 Mg/Ml 1 Ml Vial) 0.2 mg IV Q2M PRN PRN Reason: Opioid Reversal Oxycodone/Acetaminophen (Oxycodone-Apap 10-325mg 1 Each Tab) 1 each PO Q4HR PRN PRN Reason: Pain Pramipexole Dihydrochloride (Pramipexole 1 Mg Tab) 1.5 mg PO [facility] Last Admin: 05/05/25 22:20 Dose: 1.5 mg Pregabalin (Pregabalin 100 Mg Cap) 100 mg PO TID [facility] Primidone (Primidone 50 Mg Tab) 150 mg PO DAILY [facility] Last Admin: 05/06/25 09:03 Dose: 150 mg Quetiapine Fumarate (Quetiapine 50 Mg Tab) 50 mg PO [facility] Sertraline HCl (Sertraline 100 Mg Tab) 250 mg PO DAILY [facility] Tamsulosin HCl (Tamsulosin 0.4 Mg Cap.Er.24h) 0.8 mg PO DAILY [facility] Last Admin: 05/06/25 08:50 Dose: 0.8 mg Tramadol HCl (Tramadol 50 Mg Tab) 50 mg PO Q6H PRN PRN Reason: Moderate Pain (Scale 4 to 6) Valacyclovir HCl (Valacyclovir Hcl 1,000 Mg Tablet) 1,000 mg PO TID [facility]; Protocol Stop: 05/10/25 22:01 Last Admin: 05/06/25 15:26 Dose: 1,000 mg Social history: lives with no smoking. Stopped drinking alcohol in 2004. Prior to that used to drink every day On examination: VITAL SIGNS: 98.1, 65, 816, 1 3580, 92% room GENERAL APPEARANCE: Laying in bed, more awake today. HEENT: Normal external appearance of nose and ear. Oral cavity normal. Papular rash in the distribution of V1/V2. Some breakdown of skin. From scratching EYES: Left eye covered with a gauze NECK: JVD not raised. Mass not palpable. RESPIRATORY: Respiratory effort increased, diminished breath sounds, CARDIOVASCULAR: First second sound normal, no edema. ABDOMEN: Soft. Liver and spleen not palpable. No tenderness. No mass palpable. PSYCHIATRY: Answering questions appropriately. d NEUROLOGICAL: Vesicles are broken down. In the V1 V2 area of 7th nerve INVESTIGATIONS, reviewed in the clinical context: May 06: White count 7.3 hemoglobin 11.5 platelet 227 potassium 4.1 creatinine 1.1 May 05: White count 7.3 hemoglobin 11.2 platelets 197 sodium 139 potassium 3.5 BUN 27 creatinine 1.49 EKG tracing personally reviewed by me-normal sinus rhythm Chest x-ray film personally reviewed by me-no obvious abnormality CT brain without contrast: Unremarkable Recent Brain CTA: Loss of enhancement of the proximal terminal segment of the right vertebral artery with distal recanalization. CT brain: No acute there is remote ischemic injury of the left capsular and right thalamus. Encephalomalacia and gliosis. Previous investigations: 2D echocardiogram [May 2024] EF 55 to 60%. Mild TR, AR, MR. Assessment and plan: -Acute herpes zoster in the dermatome of V1 V2. Presenting in severe pain. Rash manifest about April 25. Symptoms started around April 18 Started on acyclovir from April 26. 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 [place] as needed Patient seen by pain management team Dr. wolfe-increase Lyrica to 100 g 3 times daily - Traumatic cellulitis of the scalp from patient scratching Bacitracin cream 3 times daily -Persistent atrial fibrillation with prior cardioversion amiodarone. Pradaxa. Toprol-XL -Chronic hypoxic respiratory failure Patient does use 1 to 2 L oxygen at home more as needed. - Possible secondary left eye infection. Patient seen by career education teacher outpatient today. Follow instructions by the office. -Coronary artery disease with prior history of stent Lipitor. Pradaxa Toprol-XL -GERD Tums when necessary -Hyperlipidemia Lipitor -Essential hypertension, initially hypotensive. Now better Hold amlodipine Continue Toprol-XL. Resume home dose of Cozaar 100 mg from tomorrow -BPH, with bladder outflow obstruction Flomax -Obstructive sleep apnea does not use CPAP -Early Parkinson disorder with tremors Mirapex, primidone -Mild cognitive impairment Namenda - Anxiety disorder unspecified Seen by psychiatry Dr. Frederick Zoloft increased to 250 mg a day -Irritable bowel syndrome -Bipolar depression Zoloft, -Full code Resume home dose of Cozaar. Increase dose of Lyrica. Add topical bacitracin. Patient unable to get EEG. Clinically better. Cut back IV fluids to 75 cc an hour. Zoloft increased Past Medical History Past Medical History: Atrial Fibrillation, Coronary Artery Disease (CAD), Chest Pain / Angina, Heart Failure, Dementia, GERD/Reflux, Hyperlipidemia, Hypertension, Memory Impairment, Myocardial Infarction (HI), Neurologic Disorder, Pneumonia, Prostate Disorder, Renal Disease, Skin Disorder, Sleep Apnea/CPAP/BIPAP Additional Past Medical History / Comment(s): early parkinson's with essential tremors, "lewy body dementia"-short term memory less, R nephrolithiasis with surgery, EDITH with no CPAP, Irritable Bowel Syndrome diarrhea off and on, pneumonia/bronchitis, BPH, blood in stool-EGD/colonoscopy were normal, past hiatal hernia(sx), past falls., hx acute kidney failure; SOB with activity Last Myocardial Infarction Date:: 06/09/13 History of Any Multi-Drug Resistant Organisms: None Reported Past Surgical History: Back Surgery, Heart Catheterization, Heart Catheterization With Stent, Hernia Repair Additional Past Surgical History / Comment(s): 05/2013 stent to LAD and then a cardiac cath which showed stent patent, Recent R kidney stone removal, 03/19/15 Laparoscopic Elizabeth fundlaplication. SKIN GRAFTS CHEST & BACK FROM BASSETT AT 13 YRS OLD., COLONOSCOPY. EGD, L lazy eye surgery as toddler. c3 c4 fusion, c4 c5 fusion. Heart cath with Stent x2 RCA Dr. Hrenandez 12/27/2024 Past Anesthesia/Blood Transfusion Reactions: No Reported Reaction Additional Past Anesthesia/Blood Transfusion Reaction / Comment(s): Pt received blood in 1967 without reaction. Date of Last Stent Placement:: 12/27/2024 Past Psychological History: Bipolar, Depression Smoking Status: Never smoker Past Alcohol Use History: None Reported Past Drug Use History: None Reported
--- NOTE | 2025-05-06 16:42 | P.PN ---
Subjective Progress Note Date: 05/06/25 I am following up with the patient and according to the patient nurse the patient is having episodes of confusion on and off and he was unsteady walking. He continues to be scratching his face around his the shingles region. Per the technology sales specialist unable to obtain the EEG because of the shingles on the face Objective - Vital Signs Vital signs: Vital Signs Temp 98.1 F 05/06/25 13:56 Pulse 65 05/06/25 13:56 Resp 16 05/06/25 13:56 BP 135/80 05/06/25 13:56 Pulse Ox 92 L 05/06/25 13:56 FiO2 Intake & Output 05/05/25 05/06/25 05/06/25 18:59 06:59 18:59 Intake Total 118 Output Total 200 800 Balance -200 -682 Weight 54.431 kg 54.431 kg 54.431 kg Intake: Oral 118 Output: Urine 200 800 Other: Voiding Method External Catheter # Voids 0 1 - Exam GENERAL: The patient is lying in bed and is mild to moderate acute distress. HENT: Shingle rash over the left side of face. NEUROLOGICAL: Alert oriented to self place and time. Does follow simple commands. No aphasia No facial weakness. No dysarthria. All extremities raises above gravity Some of the work-up during this hospital visit consisted of: Orthostatic vital is supine as blood pressure 156/89 with a heart rate of 58, sitting is 151/78 with a heart rate of 68 and standing is 104/69 with a heart rate of 67. On initial presentation blood pressure 85/59 with pulse oxygen 88% at room air. Gucose is 113,, sodium 139, calcium is 7.9 I reviewed the lab work-up. CT head: No acute bleed or mass effect. No interval change compared to prior study. I personally reviewed CT head and agree there is no acute process. - Labs CBC & Chem 7: 05/06/25 05:14 05/06/25 05:14 Labs: Abnormal Lab Results - Last 24 Hours (Table) 05/06/25 05/06/25 Range/Units 05:14 05:14 RBC 3.87 L (4.40-5.60) X 10*6/uL Hgb 11.5 L (13.0-17.0) g/dL Hct 36.5 L (39.6-50.0) % MCHC 31.5 L (32.0-37.0) g/dL RDW 14.6 H (11.5-14.5) % BUN/Creatinine Ratio 20.45 H (12.00-20.00) Ratio Calcium 8.2 L (8.7-10.3) mg/dL Total Protein 6.0 L (6.2-8.2) g/dL Albumin 3.5 L (3.8-4.9) g/dL Albumin/Globulin Ratio 1.40 L (1.60-3.17) Ratio Assessment and Plan Assessment: This is a 70-year-old gentleman who presents emergency department because of syncopal spell and lasted for 5 seconds. His initial blood pressure was 85/59. Brief Syncopal spell likely due to hypotension CT of the head is unremarkable for acute process. Also had positive orthostatic hypotension and unsure if accurate. Does not appear like a seizure. If his hypotension is related due to cardiac especially with the significant cardiac issue versus neurological especially with Lewy body dementia causing autonomic dysfunction versus medication induced. Recurrent falls recently and unsure exact cause: Possible same as above. Likely delirium due to above Shingles over the left face History of essential tremor Underlying history of Lewy body dementia history of obstructive sleep apnea Underlying mild memory impairment History of atrial fibrillation History of coronary artery disease status post stent Polypharmacy Plan: technology sales specialist was unable to perform EEG since he has rash on face. Recommend repeat orthostatic vitals.If the patient continues to have hypotensive episodes or positive orthostatic will defer the management to primary team Cardiology is consulted. Pain specialist is consulted. I consulted I.D. team for shingles and consulted anesthesiology team for lumbar puncture to rule any encephalitis which I feel unlikely. consultation for syncope especially with significant cardiac issues. Will defer the rest of the medical management to primary and other specialist Upon discharge, recommend the patient to follow-up with his outpatient neurologist, Dr. Kaur within 2-3 weeks. The plan is discussed with primary team. Time with Patient: Less than 30
[2025-05-06] MEDS: LACTATED RINGERS 500 ML IV SCH (17:23)
[2025-05-06] MEDS: BACITRACIN OINT 1 EACH PACKET TOPICAL SCH (18:01)
[2025-05-06] MEDS: PREGABALIN 100 MG CAP PO SCH (18:01)
[2025-05-06] MEDS: QUEtiapine 50 MG TAB PO SCH (22:03)
--- NOTE | 2025-05-06 22:51 | P.CONS ---
History of Present Illness - Reason for Consult Consult date: 05/06/25 Shingles with confusion question of encephalitis Requesting physician: Jakob Summers - Chief Complaint Weakness passed out x 1 day - History of Present Illness Patient is a 70-year-old male with multiple comorbidities Atrial Fibrillation, Coronary Artery Disease (CAD), Chest Pain / Angina, Heart Failure, Dementia, GERD/Reflux, Hyperlipidemia, Hypertension, Memory Impairment, Myocardial Infarction (OK), Neurologic Disorder, Pneumonia, Prostate Disorder, Renal Disease, Skin Disorder, Sleep Apnea/CPAP/BIPAP, and recently diagnosed with left ophthalmic herpes zoster for the patient was in the hospital from April through and subsequently was discharged on acyclovir patient was at the physician office with the patient did have syncopal episode as he felt very weak and lightheaded for the patient has been brought back to the hospital yesterday morning patient denies having any fever any chills has been complaining of pain mostly to the left side of the forehead area with the patient did have some superficial ulceration from scratching but denies having any new lesion, patient denies having any painful movement of the eyeball patient know that he is at [facility] denies any photophobia nausea vomiting no abdominal pain or any diarrhea patient on presentation to the hospital has been afebrile had no fever have been called subsequently patient was not tachycardic or hypoxic not requiring any supplemental oxygen patient did have a white count of 7.33 creatinine is 1.1 did have elevated BUN and creatinine no admission liver isms abnormal did have a CT of the brain that was negative for any bleed chest x-ray no acute cardiopulmonary process patient is currently being treated with Lyrica acyclovir infectious disease was consulted today concerning for shingles with confusion rule out encephalitis although the patient was not confused the time my evaluation he was fully awake alert oriented x 3 Review of Systems Positive point and negatives has been mentioned in the HPI, complete review of systems was performed and all other systems are negative Past Medical History Past Medical History: Atrial Fibrillation, Coronary Artery Disease (CAD), Chest Pain / Angina, Heart Failure, Dementia, GERD/Reflux, Hyperlipidemia, Hypertension, Memory Impairment, Myocardial Infarction (OK), Neurologic Disorder, Pneumonia, Prostate Disorder, Renal Disease, Skin Disorder, Sleep Apnea/CPAP/BIPAP Additional Past Medical History / Comment(s): early parkinson's with essential tremors, "lewy body dementia"-short term memory less, R nephrolithiasis with surgery, EDITH with no CPAP, Irritable Bowel Syndrome diarrhea off and on, pneumonia/bronchitis, BPH, blood in stool-EGD/colonoscopy were normal, past hiatal hernia(sx), past falls., hx acute kidney failure; SOB with activity Last Myocardial Infarction Date:: 06/09/13 History of Any Multi-Drug Resistant Organisms: None Reported Past Surgical History: Back Surgery, Heart Catheterization, Heart Catheterization With Stent, Hernia Repair Additional Past Surgical History / Comment(s): 05/2013 stent to LAD and then a cardiac cath which showed stent patent, Recent R kidney stone removal, 03/19/15 Laparoscopic Elizabeth fundlaplication. SKIN GRAFTS CHEST & BACK FROM B[place]ETT AT 13 YRS OLD., COLONOSCOPY. EGD, L lazy eye surgery as toddler. c3 c4 fusion, c4 c5 fusion. Heart cath with Stent x2 RCA Dr. Hernandez 12/27/2024 Past Anesthesia/Blood Transfusion Reactions: No Reported Reaction Additional Past Anesthesia/Blood Transfusion Reaction / Comm: Pt received blood in 1967 without reaction. Date of Last Stent Placement:: 12/27/2024 Past Psychological History: Bipolar, Depression Additional Psychological History / Comment(s): Pt lives with his . He has depression but states medication for this is working. He is normally independent. Smoking Status: Never smoker Past Alcohol Use History: None Reported Additional Past Alcohol Use History / Comment(s): Pt quit drinking alcohol in 2004(drank almost on daily basis) Past Drug Use History: None Reported - Past Family History Mother Family Medical History: Liver Disease Additional Family Medical History / Comment(s): Mother was an alcoholic. She of cirrhosis of the liver at age 60yrs. Father Family Medical History: Cancer, Coronary Artery Disease (CAD), Myocardial Infarction (OK) Additional Family Medical History / Comment(s): SKIN CA. Father of a [place] at age 65 yrs. Brother(s) Family Medical History: Cancer Additional Family Medical History / Comment(s): LEUKEMIA, LYMPH NODE CA AND MULTIPLE MYELOMA. Medications and Allergies Home Medications Medication Instructions Recorded Confirmed Type Memantine [Namenda] 10 mg PO BID 02/17/20 05/05/25 History Pramipexole Di-HCl [Mirapex] 1.5 mg PO HS 02/17/20 05/05/25 History Sertraline [Zoloft] 200 mg PO DAILY 08/18/21 05/05/25 History Primidone [Mysoline] 150 mg PO DAILY 02/17/24 05/05/25 History Tamsulosin [Flomax] 0.8 mg PO DAILY 05/19/24 05/05/25 History Atorvastatin [Lipitor] 80 mg PO HS 11/04/24 05/05/25 History Metoprolol Succinate [Toprol XL] 50 mg PO DAILY 11/04/24 05/05/25 History Nitroglycerin Sl Tabs [Nitrostat] 0.4 mg SL Q5M PRN 11/04/24 05/05/25 History Dabigatran [Pradaxa] 150 mg PO BID #60 cap 11/05/24 05/05/25 Rx Amiodarone [Cordarone] 100 mg PO DAILY 12/25/24 05/05/25 History Clopidogrel [Plavix] 75 mg PO DAILY 04/23/25 05/05/25 History Furosemide [Lasix] 40 mg PO DAILY 04/23/25 05/05/25 History Losartan Potassium 100 mg PO DAILY 04/23/25 05/05/25 History amLODIPine [Norvasc] 2.5 mg PO DAILY 04/23/25 05/05/25 History Pregabalin [Lyrica] 100 mg PO BID #60 cap 04/25/25 05/05/25 Rx oxyCODONE HCL/ACETAMINOPHEN 1 tab PO Q4HR PRN 3 Days #18 tab 05/04/25 05/05/25 Rx [Percocet 10-325 mg] Cephalexin [Keflex] 500 mg PO Q12HR 05/05/25 05/05/25 History Gabapentin [Neurontin] 200 mg PO BID 05/05/25 05/05/25 History Moxifloxacin HCl [Moxifloxacin 1 drop LEFT EYE QID 05/05/25 05/05/25 History 0.5%] valACYclovir HCL [Valtrex] 1,000 mg PO TID 05/05/25 05/05/25 History Allergies Allergy/AdvReac Type Severity Reaction Status Date / Time No Known Allergies Allergy Verified 05/05/25 15:15 Physical Exam Vitals: Vital Signs Temp Pulse Pulse Pulse Pulse Pulse Resp 05/06/25 13:56 98.1 F 65 16 05/06/25 07:00 98.8 F 58 L 16 05/06/25 01:24 97.6 F 61 17 05/05/25 22:17 68 67 58 L 05/05/25 20:51 67 18 05/05/25 18:00 59 L 18 BP BP BP BP BP Pulse Ox 05/06/25 13:56 135/80 92 L 05/06/25 07:00 148/76 94 L 05/06/25 01:24 156/87 94 L 05/05/25 22:17 151/78 104/69 156/89 96 05/05/25 20:51 117/74 94 L 05/05/25 18:00 99/47 95 Intake and Output 05/06/25 05/06/25 05/06/25 06:59 14:59 22:59 Intake Total 118 Output Total 200 800 Balance -200 -682 Intake: Oral 118 Output: Urine 200 800 Other: Voiding Method External Catheter # Voids 1 Weight 54.431 kg GENERAL DESCRIPTION: Elderly male lying in bed, no distress. No tachypnea or accessory muscle of respiration use. HEENT: Shows Pallor , no scleral icterus. Oral mucous membrane is dry. NECK: Trachea central, no thyromegaly. LUNGS: Unlabored breathing. Clear to auscultation anteriorly. No wheeze or crackle. HEART: S1, S2, regular rate and rhythm. No loud murmur ABDOMEN: Soft, no tenderness , guarding or rigidity, no organomegaly EXTREMITIES: Patient did have a superficial ulceration to the left side of the scalp area but no vesicles were noticed SKIN: No rash, no masses palpable. NEUROLOGICAL: The patient is awake, alert, oriented x3, mood and affect normal. Results CBC & Chem 7: 05/06/25 05:14 05/06/25 05:14 Labs: Abnormal Lab Results - Last 24 Hours (Table) 05/06/25 05/06/25 Range/Units 05:14 05:14 RBC 3.87 L (4.40-5.60) X 10*6/uL Hgb 11.5 L (13.0-17.0) g/dL Hct 36.5 L (39.6-50.0) % MCHC 31.5 L (32.0-37.0) g/dL RDW 14.6 H (11.5-14.5) % BUN/Creatinine Ratio 20.45 H (12.00-20.00) Ratio Calcium 8.2 L (8.7-10.3) mg/dL Total Protein 6.0 L (6.2-8.2) g/dL Albumin 3.5 L (3.8-4.9) g/dL Albumin/Globulin Ratio 1.40 L (1.60-3.17) Ratio Assessment and Plan (1) Scalp ulceration Current Visit: Yes Status: Acute Code(s): L98.499 - NON-PRESSURE CHRONIC ULCER OF SKIN OF SITES W UNSP SEVERITY SNOMED Code(s): 78608453 (2) Postherpetic neuralgia Current Visit: Yes Status: Acute Code(s): B02.29 - OTHER POSTHERPETIC NERVOUS SYSTEM INVOLVEMENT SNOMED Code(s): 6657886 Plan: 1patient presented to hospital with syncopal episode in this patient who recently has been diagnosed and treated for shingles involving the left ophthalmic division patient currently do have some ulceration to the scalp area likely from scratching itching with minimal erythema with a question of possible secondary cellulitis less likely but not excluded, patient is currently awake alert oriented x 3 no confusion noticed on my evaluation, not running any fever not behaving as encephalitis patient has received adequate antiviral therapy and sometimes acyclovir/Valtrex can cause some confusion as well especially when he was admitted to hospital and was prerenal at that time 2-we will recommend to discontinue acyclovir 3-will monitor closely if any changes in mental status or clinical admission may consider LP at that time 4-add cefazolin for possible cellulitis and see clinical response Question concern answered We will follow on clinical condition and cultures to further adjust medication if needed Thank you for this consultation we will follow the patient along with you Dictation was produced using [employer] dictation software. please excuse any grammatical, word or spelling errors. Time with Patient: Greater than 30
[2025-05-07] MEDS: ceFAZolin 2 GM in DEXTROSE 5% IN WATER 50 ML IVPB SCH (00:45)
[2025-05-07] MEDS: SERTRALINE 100 MG TAB PO SCH (08:40)
[2025-05-07] MEDS: LOSARTAN 50 MG TAB PO SCH (08:41)
--- NOTE | 2025-05-07 11:00 | P.PN ---
Subjective HISTORY OF PRESENT ILLNESS: This is a 70-year-old male with a past medical history significant for coronary artery disease with previous stenting, paroxysmal atrial fibrillation, sinus tachycardia, hypertension, hyperlipidemia, congestive heart failure, and carotid stenosis. Patient follows in the office with Dr. Hernandez. We have been asked to see the patient in consultation for hypotension. Patient examined at the bedside. Patient is a poor historian. He is hard to understand and rambling at the time of examination. Patient states he was driving in the car with his family when he started to feel nauseous. He states he did not pass out when we first asked him. Then, he changed his story and states he has passed out multiple times. He stat es his head his hurting this morning. He reports mild SOB and mild chest pressure. Patient was found to be hypotensive when he first came to the ER with a BP in the 80s. DIAGNOSTICS: - EKG reveals sinus bradycardia with no signs of acute ischemia. - Chest xray negative for acute process. - Laboratory data: WBC 7.33. Hemoglobin 11.5. Platelet count 227. INR 1.5. D-dimer 0.45. Sodium 139. Potassium 3.5. BUN 27. Creatinine 1.49. Magnesium 2.3. Troponin negative x 3. - Current home cardiac medications include Lipitor 80 mg at night, amlodipine 2.5 mg daily, metoprolol succinate 50 mg daily, losartan 100 mg daily, Lasix 40 mg daily, Pradaxa 150 mg twice a day, Plavix 75 mg daily, amiodarone 100 mg daily. - Most recent echocardiogram obtained in May 2024 revealed ejection fraction 55 to 60%, mild aortic regurgitation, mild tricuspid regurgitation, mild mitral regurgitation - Cardiac catheterization history: December 2024 revealing stenting of distal and proximal RCA 05/07/2025 Patient examined this morning at bedside. Patient currently denies chest pain or pressure. He denies shortness of breath. He reports that he is having continued pain in his head. He is currently maintained on IV fluids. Creatinine today improved to 1.1. PHYSICAL EXAM: VITAL SIGNS: Reviewed. GENERAL: Well-developed in no acute distress. HEENT: Head is normocephalic. Pupils are equal, round. Sclerae anicteric. Mucous membranes of the mouth are moist. Neck supple. No JVD or thyromegaly LUNGS: Respirations even and unlabored. Lungs essentially clear to auscultation bilaterally. HEART: Regular rate and rhythm. S1 and S2 heard. ABDOMEN: Soft. Nondistended. Nontender. EXTREMITIES: Normal range of motion. No clubbing or cyanosis. Peripheral pulses intact. No lower extremity edema NEUROLOGIC: Awake and alert. Oriented x 3. ASSESSMENT: Questionable syncope Hypotension on admission, improved Acute kidney injury Shingles of left face Coronary artery disease with previous stenting Paroxysmal atrial fibrillation, on Pradaxa outpatient History of sinus tachycardia Hypertension Hyperlipidemia Congestive heart failure with preserved EF, currently euvolemic History of carotid stenosis PLAN: 2D echo ordered. Await results. Discontinue IV fluids Continue current cardiac medications Continue to monitor blood pressure Continue telemetry monitoring Patient may be discharged from a cardiac standpoint pending echo results Further recommendations pending patient course Nurse practitioner note has been reviewed by physician. Signing provider agrees with the documented findings, assessment, and plan of care documented by TEST PREPARATION TUTOR as a scribe. Objective - Vital Signs Vital signs: Vital Signs Temp 97.8 F 05/07/25 08:29 Pulse 64 05/07/25 08:29 Resp 16 05/07/25 08:29 BP 174/94 05/07/25 08:29 Pulse Ox 94 L 05/07/25 08:29 FiO2 Intake & Output 05/06/25 05/07/25 05/07/25 18:59 06:59 18:59 Intake Total 118 318 Output Total 800 500 Balance -682 -500 318 Weight 54.431 kg Intake: Oral 118 318 Output: Urine 800 500 Other: Voiding Method Urinal # Voids 1 1 - Labs CBC & Chem 7: 05/06/25 05:14 05/06/25 05:14
[2025-05-07 15:08] VITALS: BP 145/88; PULSE 60; RESP 14; TEMP 98
--- NOTE | 2025-05-07 15:33 | P.PN ---
Subjective Progress Note Date: 05/07/25 I am following-up with the patient and per the nurse his mentation is improving. Patient continues to have pain over the left side of face and picking on face. Pain team is consulted for pain management. Yesterday, I spoke with the primary team and it was felt his confusion was due to pain medication so therefore notified primary team no need for lumbar puncture. Patient denies of any vomiting, focal weakness. Objective - Vital Signs Vital signs: Vital Signs Temp 98.0 F 05/07/25 15:07 Pulse 60 05/07/25 15:07 Resp 14 05/07/25 15:07 BP 145/88 05/07/25 15:07 Pulse Ox 94 L 05/07/25 15:07 FiO2 Intake & Output 05/06/25 05/07/25 05/07/25 18:59 06:59 18:59 Intake Total 118 436 Output Total 800 500 Balance -682 -500 436 Weight 54.431 kg Intake: Oral 118 436 Output: Urine 800 500 Other: Voiding Method Urinal Urinal # Voids 1 1 - Exam GENERAL: The patient is lying in bed and is moderate acute distress. HENT: Shingle rash over the left side of face. NEUROLOGICAL: Alert oriented to self place. Is able to name current state and identify objects. Does follow simple commands. No aphasia No facial weakness. No dysarthria. Motor: Lifting all extremities raises above gravity equally. Some of the work-up during this hospital visit consisted of: Orthostatic vital is supine as blood pressure 156/89 with a heart rate of 58, sitting is 151/78 with a heart rate of 68 and standing is 104/69 with a heart rate of 67. On initial presentation blood pressure 85/59 with pulse oxygen 88% at room air. Gucose is 113,, sodium 139, calcium is 7.9 I reviewed the lab work-up. CT head: No acute bleed or mass effect. No interval change compared to prior study. I personally reviewed CT head and agree there is no acute process. - Labs CBC & Chem 7: 05/06/25 05:14 05/06/25 05:14 Assessment and Plan Assessment: This is a 70-year-old gentleman who presents emergency department because of syncopal spell and lasted for 5 seconds. His initial blood pressure was 85/59. Brief Syncopal spell likely due to hypotension CT of the head is unremarkable for acute process. Also had positive orthostatic hypotension and unsure if accurate. Does not appear like a seizure. If his hypotension is related due to cardiac especially with the significant cardiac issue versus neurological especially with Lewy body dementia causing autonomic dysfunction versus medication induced. Recurrent falls recently and unsure exact cause: Possible same as above. Likely delirium due to above His episode of confusion is likely due to pain medication---currently back to baseline. This does not appear encephalitis. wbc is normal and is afebrile. Shingles over the left face Post-herpetic neuralgia History of essential tremor Underlying history of Lewy body dementia history of obstructive sleep apnea Underlying mild memory impairment History of atrial fibrillation History of coronary artery disease status post stent Polypharmacy Plan: semiconductor technician was unable to perform EEG since he has rash on face. Recommend repeat orthostatic vitals.If the patient continues to have hypotensive episodes or positive orthostatic will defer the management to primary team Cardiology is consulted. Pain specialist is consulted for pain management. I spoke with primary team and it was felt confusion due to pain medication and today is responding appropriately. No need for Lumbar puncture. Will defer the rest of the medical management to primary and other specialist Upon discharge, recommend the patient to follow-up with his outpatient neurologist, Dr. Kaur within 2-3 weeks. The plan is discussed with primary team and his nurse. Time with Patient: Less than 30
--- NOTE | 2025-05-07 19:01 | P.DS ---
Providers Date of admission: 05/05/25 15:29 Expected date of discharge: 05/07/25 Attending physician: Pierce Chakraborty Consults: 05/05/25 15:26 Consult Physician Routine Consulting Provider: Jakob Summers Consult Reason/Comments: syncope Do you want consulting provider notified?: Yes 05/05/25 18:40 Consult Physician Routine Consulting Provider: Rod Gibbons Consult Reason/Comments: hypotension Do you want consulting provider notified?: Yes 05/05/25 18:42 Consult Physician Routine Consulting Provider: Nick Estrella Consult Reason/Comments: pain management Do you want consulting provider notified?: Yes 05/06/25 10:20 Consult Physician Routine Consulting Provider: Dalila Carrillo Consult Reason/Comments: uncontrolled anxiety Do you want consulting provider notified?: Yes Primary care physician: Román Gutierrez [facility] Course: Chief Complaint: Hypotension Very pleasant 70-year-old patient of Dr. Gutierrez. Chronic medical conditions include some cognitive impairment, GERD, hyperlipidemia, hypertension, early Parkinson's versus essential tremor, , obstructive sleep apnea does not use CPAP, irritable bowel syndrome, BPH hiatal hernia. coronary artery disease with stent. Paroxysmal atrial fibrillation. Has had cardioversion. Patient was admitted to the hospital April 23 through April 26. Had presented with severe headache on the left side. Finally patient developed a rash was diagnosed with herpes zoster. Was discharged on acyclovir. Because of severe headache was given Lyrica. There was no eye involvement. Patient was to follow-up appointment with the eye doctor. Since then patient had 3 more visits to the ER on April 26, May 02, May 04. On the first visit to the ER the pain was more severe and I was more swollen. ER had called Moisés Butcher and Gregory Nolan and both declined. Patient then saw this week the eye doctor. Patient continued to have significant pain. Patient's pain has been bothering him so much that he was getting a bit confused at home per the . Also following. Found to be hypotensive. With increased appetite. Patient also has been scratching with some breakdown of skin on the scalp. Patient is accompanied by his in the ER. Patient is due to see the pain specialist. Patient himself is somewhat delirious. Will answer some questions. May 06: Patient received IV fluids. Creatinine much better. Did eat much better. Able to hold a conversation much better. Delirium improved was seen by psychiatry. His increase of Zoloft 2 to 50 mg a day. Neurontin was disco ntinued. Seen by pain management team. Lyrica to be increased to 3 times a day. Will use topical bacitracin on the scalp areas where patient scratched himself. May 07: Patient doing much better. Able to hold a full conversation. Still some pain present. Spoke to the at length. Patient to avoid taking [place]. Only to take it when there is a severe flareup. Otherwise avoid the same. New medications per psychiatry prescribed. Increased dose of Lyrica given. Also spoke to social service liaison. She is already spoken to the . Declined rehab. Patient will be going home. Patient to follow-up with his eye doctor. Also discussed with Dr. Munoz yesterday evening and today about canceling the consultation for ID.. It was felt by both of further clinically not indicated. As patient is significantly improved. From delirium. Discussion and discharge planning more than 35 minutes Social history: lives with no smoking. Stopped drinking alcohol in 2004. Prior to that used to drink every day On examination: VITAL SIGNS: 98, 60, 14, 1 4588, 94% room air GENERAL APPEARANCE: Laying in bed, lying in bed HEENT: Normal external appearance of nose and ear. Oral cavity normal. Papular rash in the distribution of V1/V2. Some breakdown of skin. From scratching EYES: Left eye covered with a gauze NECK: JVD not raised. Mass not palpable. RESPIRATORY: Respiratory effort increased, diminished breath sounds, CARDIOVASCULAR: First second sound normal, no edema. ABDOMEN: Soft. Liver and spleen not palpable. No tenderness. No mass palpable. PSYCHIATRY: Able to hold a regular conversation. Does some time gets uncomfortable with pain NEUROLOGICAL: Vesicles are broken down. In the V1 V2 area of 7th nerve INVESTIGATIONS, reviewed in the clinical context: May 06: White count 7.3 hemoglobin 11.5 platelet 227 potassium 4.1 creatinine 1.1 May 05: White count 7.3 hemoglobin 11.2 platelets 197 sodium 139 potassium 3.5 BUN 27 creatinine 1.49 EKG tracing personally reviewed by me-normal sinus rhythm Chest x-ray film personally reviewed by me-no obvious abnormality CT brain without contrast: Unremarkable Recent Brain CTA: Loss of enhancement of the proximal terminal segment of the right vertebral artery with distal recanalization. CT brain: No acute there is remote ischemic injury of the left capsular and right thalamus. Encephalomalacia and gliosis. Previous investigations: 2D echocardiogram [May 2024] EF 55 to 60%. Mild TR, AR, MR. Assessment and plan: -Acute herpes zoster in the dermatome of V1 V2. Presenting in severe pain. Rash manifest about April 25. Symptoms started around April 18: Much better Started on acyclovir from April 26-complete 10 days. - Acute delirium combination of pain medications, decreased appetite and pain and from narcotic: Resolved -Postherpetic severe cephalgia from herpes zoster.. [place] very sparingly Patient seen by pain management team Dr. wolfe-increase Lyrica to 100 g 3 times daily - Traumatic cellulitis of the scalp from patient scratching Bacitracin cream 3 times daily. Keflex -Persistent atrial fibrillation with prior cardioversion amiodarone. Pradaxa. Toprol-XL -Chronic hypoxic respiratory failure Patient does use 1 to 2 L oxygen at home more as needed. - Possible secondary left eye infection. Patient seen by tower erector helper outpatient today. Follow instructions by the office. -Coronary artery disease with prior history of stent Lipitor. Pradaxa Toprol-XL -GERD Tums when necessary -Hyperlipidemia Lipitor -Essential hypertension, initially hypotensive. Now better Amlodipine Toprol-XL Cozaar to continue -BPH, with bladder outflow obstruction Flomax -Obstructive sleep apnea does not use CPAP -Early Parkinson disorder with tremors Mirapex, primidone -Mild cognitive impairment Namenda - Anxiety disorder unspecified Seen by psychiatry Dr. Frederick Zoloft increased to 250 mg a day. Seroquel 50 mg nightly also added -Irritable bowel syndrome -Bipolar depression Zoloft, -Full code Disposition: Home Past Medical History Past Medical History: Atrial Fibrillation, Coronary Artery Disease (CAD), Chest Pain / Angina, Heart Failure, Dementia, GERD/Reflux, Hyperlipidemia, Hypertension, Memory Impairment, Myocardial Infarction (NH), Neurologic Disorder, Pneumonia, Prostate Disorder, Renal Disease, Skin Disorder, Sleep Apnea/CPAP/BIPAP Additional Past Medical History / Comment(s): early parkinson's with essential tremors, "lewy body dementia"-short term memory less, R nephrolithiasis with surgery, EDITH with no CPAP, Irritable Bowel Syndrome diarrhea off and on, pneumonia/bronchitis, BPH, blood in stool-EGD/colonoscopy were normal, past hiatal hernia(sx), past falls., hx acute kidney failure; SOB with activity Last Myocardial Infarction Date:: 06/09/13 History of Any Multi-Drug Resistant Organisms: None Reported Past Surgical History: Back Surgery, Heart Catheterization, Heart Catheterization With Stent, Hernia Repair Additional Past Surgical History / Comment(s): 05/2013 stent to LAD and then a cardiac cath which showed stent patent, Recent R kidney stone removal, 03/19/15 Laparoscopic Elizabeth fundlaplication. SKIN GRAFTS CHEST & BACK FROM [place] AT 13 YRS OLD., COLONOSCOPY. EGD, L lazy eye surgery as toddler. c3 c4 fusion, c4 c5 fusion. Heart cath with Stent x2 RCA Dr. Hernandez 12/27/2024 Past Anesthesia/Blood Transfusion Reactions: No Reported Reaction Additional Past Anesthesia/Blood Transfusion Reaction / Comment(s): Pt received blood in 1967 without reaction. Date of Last Stent Placement:: 12/27/2024 Past Psychological History: Bipolar, Depression Smoking Status: Never smoker Past Alcohol Use History: None Reported Past Drug Use History: None Reported Plan - Discharge Summary Discharge Rx Participant: No New Discharge Prescriptions: New QUEtiapine [SEROquel] 50 mg PO HS #30 tab Sertraline [Zoloft] 250 mg PO DAILY #90 tab Continue Memantine [Namenda] 10 mg PO BID Pramipexole Di-HCl [Mirapex] 1.5 mg PO HS Primidone [Mysoline] 150 mg PO DAILY Tamsulosin [Flomax] 0.8 mg PO DAILY amLODIPine [Norvasc] 2.5 mg PO DAILY Losartan Potassium 100 mg PO DAILY Clopidogrel [Plavix] 75 mg PO DAILY valACYclovir HCL [Valtrex] 1,000 mg PO TID Nitroglycerin Sl Tabs [Nitrostat] 0.4 mg SL Q5M PRN PRN Reason: Chest Pain Metoprolol Succinate [Toprol XL] 50 mg PO DAILY Atorvastatin [Lipitor] 80 mg PO HS Dabigatran [Pradaxa] 150 mg PO BID #60 cap Amiodarone [Cordarone] 100 mg PO DAILY oxyCODONE HCL/ACETAMINOPHEN [Percocet 10-325 mg] 1 tab PO Q4HR PRN 3 Days #18 tab PRN Reason: Pain Cephalexin [Keflex] 500 mg PO Q12HR Moxifloxacin HCl [Moxifloxacin 0.5%] 1 drop LEFT EYE QID Changed Pregabalin [Lyrica] 100 mg PO TID #60 cap Discontinued Sertraline [Zoloft] 200 mg PO DAILY Gabapentin [Neurontin] 200 mg PO BID Furosemide [Lasix] 40 mg PO DAILY Discharge Medication List Memantine [Namenda] 10 mg PO BID 02/17/20 [History] Pramipexole Di-HCl [Mirapex] 1.5 mg PO HS 02/17/20 [History] Primidone [Mysoline] 150 mg PO DAILY 02/17/24 [History] Tamsulosin [Flomax] 0.8 mg PO DAILY 05/19/24 [History] Atorvastatin [Lipitor] 80 mg PO HS 11/04/24 [History] Metoprolol Succinate [Toprol XL] 50 mg PO DAILY 11/04/24 [History] Nitroglycerin Sl Tabs [Nitrostat] 0.4 mg SL Q5M PRN 11/04/24 [History] Dabigatran [Pradaxa] 150 mg PO BID #60 cap 11/05/24 [Rx] Amiodarone [Cordarone] 100 mg PO DAILY 12/25/24 [History] Clopidogrel [Plavix] 75 mg PO DAILY 04/23/25 [History] Losartan Potassium 100 mg PO DAILY 04/23/25 [History] amLODIPine [Norvasc] 2.5 mg PO DAILY 04/23/25 [History] oxyCODONE HCL/ACETAMINOPHEN [Percocet 10-325 mg] 1 tab PO Q4HR PRN 3 Days #18 tab 05/04/25 [Rx] Cephalexin [Keflex] 500 mg PO Q12HR 05/05/25 [History] Moxifloxacin HCl [Moxifloxacin 0.5%] 1 drop LEFT EYE QID 05/05/25 [History] valACYclovir HCL [Valtrex] 1,000 mg PO TID 05/05/25 [History] Pregabalin [Lyrica] 100 mg PO TID #60 cap 05/07/25 [Rx] QUEtiapine [SEROquel] 50 mg PO HS #30 tab 05/07/25 [Rx] Sertraline [Zoloft] 250 mg PO DAILY #90 tab 05/07/25 [Rx] Follow up Appointment(s)/Referral(s): Román Gutierrez DO [Primary Care Provider] - 1-2 days Patient Instructions/Handouts: Shingles (DC), Syncope (DC) Discharge Disposition: HOME SELF-CARE
== END 2025-05-07 18:27 | disposition home or self-care (01) ==
LOC: EC 12:12 → 6NMEDSUR 15:29
PROVIDERS: ADMIT Hospitalist; ATTEND Hospitalist
DX: B02.30 Zoster ocular disease, unspecified (principal); B02.29 Other postherpetic nervous system involvement; R55 Syncope and collapse; L98.499 Non-pressure chronic ulcer of skin of other sites with unspecified severity; I48.19 Other persistent atrial fibrillation; I25.10 Atherosclerotic heart disease of native coronary artery without angina pectoris; I11.0 Hypertensive heart disease with heart failure; I50.30 Unspecified diastolic (congestive) heart failure; K21.9 Gastro-esophageal reflux disease without esophagitis; E78.5 Hyperlipidemia, unspecified; G20.A1 Parkinson's disease without dyskinesia, without mention of fluctuations; F02.84 Dementia in other diseases classified elsewhere, unspecified severity, with anxiety; G47.33 Obstructive sleep apnea (adult) (pediatric); N40.0 Benign prostatic hyperplasia without lower urinary tract symptoms; F31.9 Bipolar disorder, unspecified; G31.83 Neurocognitive disorder with Lewy bodies; N17.0 Acute kidney failure with tubular necrosis; J96.11 Chronic respiratory failure with hypoxia; K58.9 Irritable bowel syndrome, unspecified; R29.6 Repeated falls; L03.811 Cellulitis of head [any part, except face]; I25.2 Old myocardial infarction; Z95.5 Presence of coronary angioplasty implant and graft; Z79.01 Long term (current) use of anticoagulants; Z79.02 Long term (current) use of antithrombotics/antiplatelets; Z79.899 Other long term (current) drug therapy
CPT/HCPCS: 96365; 96366; 99285; 36415; 93005; 85379; 80188; 80053 ×2; 83735; 84484; 85025 ×2; 85610; 85730; 71046; 70450; G0378 ×3; J0690

== ENCOUNTER 2025-05-11 07:47 | Emergency (ER) | payer MEDICARE ==
[2025-05-11 08:01] VITALS: TEMP 98.7
--- NOTE | 2025-05-11 08:16 | ED ---
General Adult HPI - General Chief complaint: Neuro Symptoms/Deficit Stated complaint: Facial paralysis,Shingles+ Time Seen by Provider: 05/11/25 08:00 Source: patient, family, RN notes reviewed, old records reviewed Mode of arrival: wheelchair - History of Present Illness Initial comments: This is a 70-year-old male who presents to the emergency department with shingles on left side of his face and according to the patient's family into his eye for which he is being treated by an plant protection officer. Patient comes in today because last night when he went to bed he has been twitching on the right side of his face and when he woke up this morning the twitching continued occasi onally but he was unable to speak. There was continued facial droop on the left side but his inability to speak continues. Patient has had no weakness of any extremities no numbness of any extremities patient has no other complaints at this time. The family member did give him Percocet in the morning after he could not speak because he was complaining of pain and she normally does not do that. - Related Data Home Medications Medication Instructions Recorded Confirmed Memantine [Namenda] 10 mg PO BID 02/17/20 05/05/25 Pramipexole Di-HCl [Mirapex] 1.5 mg PO HS 02/17/20 05/05/25 Primidone [Mysoline] 150 mg PO DAILY 02/17/24 05/05/25 Tamsulosin [Flomax] 0.8 mg PO DAILY 05/19/24 05/05/25 Atorvastatin [Lipitor] 80 mg PO HS 11/04/24 05/05/25 Metoprolol Succinate [Toprol XL] 50 mg PO DAILY 11/04/24 05/05/25 Nitroglycerin Sl Tabs [Nitrostat] 0.4 mg SL Q5M PRN 11/04/24 05/05/25 Amiodarone [Cordarone] 100 mg PO DAILY 12/25/24 05/05/25 Clopidogrel [Plavix] 75 mg PO DAILY 04/23/25 05/05/25 Losartan Potassium 100 mg PO DAILY 04/23/25 05/05/25 amLODIPine [Norvasc] 2.5 mg PO DAILY 04/23/25 05/05/25 Cephalexin [Keflex] 500 mg PO Q12HR 05/05/25 05/05/25 Moxifloxacin HCl [Moxifloxacin 1 drop LEFT EYE QID 05/05/25 05/05/25 0.5%] valACYclovir HCL [Valtrex] 1,000 mg PO TID 05/05/25 05/05/25 Previous Rx's Medication Instructions Recorded Dabigatran [Pradaxa] 150 mg PO BID #60 cap 11/05/24 oxyCODONE HCL/ACETAMINOPHEN 1 tab PO Q4HR PRN 3 Days #18 tab 05/04/25 [Percocet 10-325 mg] Pregabalin [Lyrica] 100 mg PO TID #60 cap 05/07/25 QUEtiapine [SEROquel] 50 mg PO HS #30 tab 05/07/25 Sertraline [Zoloft] 250 mg PO DAILY #90 tab 05/07/25 Allergies Allergy/AdvReac Type Severity Reaction Status Date / Time No Known Allergies Allergy Verified 05/11/25 08:01 Review of Systems ROS Statement: Those systems with pertinent positive or pertinent negative responses have been documented in the HPI. ROS Other: All systems not noted in ROS Statement are negative. Past Medical History Past Medical History: Atrial Fibrillation, Coronary Artery Disease (CAD), Chest Pain / Angina, Heart Failure, Dementia, GERD/Reflux, Hyperlipidemia, Hypertension, Memory Impairment, Myocardial Infarction (MS), Neurologic Disorder, Pneumonia, Prostate Disorder, Renal Disease, Skin Disorder, Sleep Apnea/CPAP/BIPAP Additional Past Medical History / Comment(s): early parkinson's with essential tremors, "lewy body dementia"-short term memory less, R nephrolithiasis with surgery, EDITH with no CPAP, Irritable Bowel Syndrome diarrhea off and on, pneumonia/bronchitis, BPH, blood in stool-EGD/colonoscopy were normal, past hiatal hernia(sx), past falls., hx acute kidney failure; SOB with activity Last Myocardial Infarction Date:: 06/09/13 History of Any Multi-Drug Resistant Organisms: None Reported Past Surgical History: Back Surgery, Heart Catheterization, Heart Catheterization With Stent, Hernia Repair Additional Past Surgical History / Comment(s): 05/2013 stent to LAD and then a cardiac cath which showed stent patent, Recent R kidney stone removal, 03/19/15 Laparoscopic Elizabeth fundlaplication. SKIN GRAFTS CHEST & BACK FROM [place] AT 13 YRS OLD., COLONOSCOPY. EGD, L lazy eye surgery as toddler. c3 c4 fusion, c4 c5 fusion. Heart cath with Stent x2 RCA Dr. Hernandez 12/27/2024 Past Anesthesia/Blood Transfusion Reactions: No Reported Reaction Additional Past Anesthesia/Blood Transfusion Reaction / Comment(s): Pt received blood in 1967 without reaction. Date of Last Stent Placement:: 12/27/2024 Past Psychological History: Bipolar, Depression Smoking Status: Never smoker Past Alcohol Use History: None Reported Past Drug Use History: None Reported - Past Family History Mother Family Medical History: Liver Disease Additional Family Medical History / Comment(s): Mother was an alcoholic. She of cirrhosis of the liver at age 60yrs. Father Family Medical History: Cancer, Coronary Artery Disease (CAD), Myocardial Infarction (MS) Additional Family Medical History / Comment(s): SKIN CA. Father of a MS at age 65 yrs. Brother(s) Family Medical History: Cancer Additional Family Medical History / Comment(s): LEUKEMIA, LYMPH NODE CA AND MULTIPLE MYELOMA. General Exam - General Exam Comments Initial Comments: GENERAL: Patient is well-developed and well-nourished. Patient is nontoxic and well- hydrated and is in mild distress. ENT: Neck is soft and supple. No significant lymphadenopathy is noted. Oropharynx is clear. Moist mucous membranes. Neck has full range of motion without eliciting any pain. EYES: Patient's conjunctiva is injected. Patient's left cornea has a lesion on it which she states he is being treated for PULMONARY: Unlabored respirations. Good breath sounds bilaterally. No audible rales rhonchi or wheezing was noted. CARDIOVASCULAR: There is a regular rate and rhythm without any murmurs gallops or rubs. ABDOMEN: Soft and nontender with normal bowel sounds. SKIN: Patient has excoriations on his scalp and on his face on the left side. NEUROLOGIC: Patient is alert and oriented x3. Patient cannot open up the left eye fully. Patient appears to have some facial droop of the left mouth. Patient is unable to form any words when asking questions. MUSCULOSKELETAL: Normal extremities with adequate strength and full range of motion. LYMPHATICS: No significant lymphadenopathy is noted PSYCHIATRIC: Normal psychiatric evaluation. Course Vital Signs 05/11/25 05/11/25 07:55 08:42 Temperature 98.7 F Pulse Rate 75 64 Respiratory 22 18 Rate Blood Pressure 121/80 133/81 O2 Sat by Pulse 92 L 91 L Oximetry Medical Decision Making - Medical Decision Making EKG is interpreted by myself her EKG shows a sinus rhythm at 64 bpm SD of 192 QRS is 120 QT interval is 452 QTc is 462. Patient's EKG shows no ST segment elevation or depression Was pt. sent in by a medical professional or institution ([facility], [facility], urgent care, hospital, or penitentiary...) When possible be specific @ -No Did you speak to anyone other than the patient for history (EMS, parent, family, police, friend...)? What history was obtained from this source @ -No Did you review nursing and triage notes (agree or disagree)? Why? @ -I reviewed and agree with nursing and triage notes Were old charts reviewed (outside hosp., previous admission, EMS record, old EKG, old radiological studies, urgent care reports/EKG's, penitentiary records)? Report findings @ -No old charts were reviewed Differential Diagnosis? @ -Differential CVA Ischemic stroke, hemorrhagic stroke, brain tumor, atypical migraine, Wernicke's encephalopathy, seizure, multiple sclerosis, meningitis, encephalitis, hypoglycemia, Guillain-Valero, electrolytes disturbance, myasthenia gravis.... This is not meant to be an all-inclusive list EKG interpreted by me (3pts min.). @ -As above X-rays interpreted by me (1pt min.). @ -None done CT interpreted by me (1pt min.). @ -CT of the brain shows a left-sided subdural with chronic and acute components there is a 3 mm shift U/S interpreted by me (1pt. min.). @ -None done What testing was considered but not performed or refused? (CT, X-rays, U/S, labs)? Why? @ -None What meds were considered but not given or refused? Why? @ -None Did you discuss the management of the patient with other professionals (professionals i.e. [facility], [facility], lab, RT, psych nurse, social work associate, bending roll operator, teacher, deportation officer, case picker)? Give summary @ -I spoke with Dr. Zavaleta and he wanted the patient transferred to [facility]. I spoke with the ER doc at [facility] and they accepted the transfer Was smoking cessation discussed for >3mins.? @ -No Was critical care preformed (if so, how long)? @ -35 minutes Were there social determinants of health that impacted care today? How? (Homelessness, low income, unemployed, alcoholism, drug addiction, transportation, low edu. Level, literacy, decrease access to med. care, [place], rehab)? @ -No Was there de-escalation of care discussed even if they declined (Discuss DNR or withdrawal of care, Hospice)? DNR status @ -No What co-morbidities impacted this encounter? (DM, HTN, Smoking, COPD, CAD, Cancer, CVA, ARF, Chemo, Hep., AIDS, mental health diagnosis, sleep apnea, morbid obesity)? @ -None Was patient admitted / discharged? Hospital course, mention meds given and route, prescriptions, significant lab abnormalities, going to OR and other pertinent info. @ -Patient had a acute subdural on the left and patient received Praxbind to reverse Pradaxa. Patient will be transferred to [facility] Undiagnosed new problem with uncertain prognosis? @ -No Drug Therapy requiring intensive monitoring for toxicity (Heparin, Nitro, Insulin, Cardizem)? @ -No Were any procedures done? @ -No Diagnosis/symptom? @ -Acute subdural Acute, or Chronic, or Acute on Chronic? @ -Acute Uncomplicated (without systemic symptoms) or Complicated (systemic symptoms)? @ -Complicated Side effects of treatment? @ -No Exacerbation, Progression, or Severe Exacerbation? @ -No Poses a threat to life or bodily function? How? (Chest pain, USA, MS, pneumonia, PE, COPD, DKA, ARF, appy, cholecystitis, CVA, Diverticulitis, Homicidal, Suicidal, threat to staff... and all critical care pts) @ -Yes this can continue to bleed because a shift and herniation and possible - Lab Data Result diagrams: 05/11/25 08:38 05/11/25 08:38 Lab Results 05/11/25 05/11/25 05/11/25 Range/Units 08:38 08:38 08:38 WBC 5.62 (4.50-10.00) 10*3/uL RBC 4.11 L (4.40-5.60) 10*6/uL Hgb 12.3 L (13.0-17.0) g/dL Hct 37.4 L (39.6-50.0) % MCV 91.0 (80.0-97.0) fL MCH 29.9 (27.0-32.0) pg MCHC 32.9 (32.0-37.0) g/dL Plt Count 244 (140-440) 10*3/uL MPV 9.2 L (9.5-12.2) fL Immature Gran % (Auto) 0 % Neutrophils % 66.7 % Lymphocytes % 18.5 % Monocytes % 12.5 % Eosinophils % 1.4 % Basophils % 0.9 % Immature Gran # 0.00 (0.00-0.04) 10*3/uL Neutrophils # 3.75 (1.80-7.70) 10*3/uL Lymphocytes # 1.04 (0.90-5.00) 10*3/uL Monocytes # 0.70 (0.20-1.00) 10*3/uL Eosinophils # 0.08 (0.04-0.35) 10*3/uL Basophils # 0.05 (0.00-0.10) 10*3/uL PT 13.8 H (10.0-12.5) sec INR 1.3 H (<1.2) APTT 36.0 H (22.0-30.0) sec Sodium 140 (137-145) mmol/L Potassium 3.4 L (3.5-5.1) mmol/L Chloride 104 (98-107) mmol/L Carbon Dioxide 26 (22-30) mmol/L Anion Gap 10 mmol/L BUN 17 (9-20) mg/dL Creatinine 0.76 (0.66-1.25) mg/dL Est GFR (CKD-EPI)AfAm >90 (>60 ml/min/1.73 sqM) Est GFR (CKD-EPI)NonAf >90 (>60 ml/min/1.73 sqM) Glucose 119 H (74-99) mg/dL Calcium 8.8 (8.4-10.2) mg/dL Total Bilirubin 0.7 (0.2-1.3) mg/dL AST 25 (17-59) U/L ALT 27 (4-49) U/L Alkaline Phosphatase 68 (38-126) U/L Creatine Kinase 33 L (55-170) U/L Total Protein 6.6 (6.3-8.2) g/dL Albumin 3.8 (3.5-5.0) g/dL Disposition Clinical Impression: Acute subdural hematoma Disposition: OTHER INSTITUTION NOT DEFINED Referrals: Román Gutirerez DO [Primary Care Provider] - 1-2 days Time of Disposition: 08:59 - Out of Hospital Transfer - Req. Specs Out of Hospital Transfer - Requested Specifics: Other Emergency Center ([facility])
[2025-05-11 08:36] LABS: Basophils # (A) 0.05 10*3/uL (0.00-0.10); Basophils % (A) 0.9 %; Eosinophils # (A) 0.08 10*3/uL (0.04-0.35); Eosinophils % (A) 1.4 %; HCT 37.4 % (39.6-50.0); HGB 12.3 g/dL (13.0-17.0); Lymphocytes # (A) 1.04 10*3/uL (0.90-5.00); Lymphocytes % (A) 18.5 %; MCH 29.9 pg (27.0-32.0); MCHC 32.9 g/dL (32.0-37.0); Mean Platelet Volume 9.2 fL (9.5-12.2); Monocytes % (A) 12.5 %; Neutrophils # (A) 3.75 10*3/uL (1.80-7.70); Neutrophils % (A) 66.7 %; Platelet Count 244 10*3/uL (140-440); RBC 4.11 10*6/uL (4.40-5.60); RDW 14.3 % (11.5-14.5); WBC 5.62 10*3/uL (4.50-10.00)
--- NOTE | 2025-05-11 08:42 | CT ---
Head CT without contrast HISTORY: Code stroke. COMPARISON: 05/05/2025. TECHNIQUE: Multiple axial images are obtained from the skull base to vertex without IV contrast mater ial. FINDINGS: The ventricles, basal cisterns and sulci over convexities are within normal limits. There has been interval development of a mixed acute and chronic subdural hematoma along the left inn er convexity resulting in a 3 - 4 mm shift of midline structures to the right. The width of the subdu ral hematoma is approximately 7 to 8 mm. There is no intraparenchymal hemorrhage. The posterior fossa including the brainstem, fourth ventricle and cerebellopontine angles appear lonny sly normal. Intraorbital contents appear normal and symmetric. There are moderate chronic inflammatory changes in the left maxillary sinus. The calvarium is intact. IMPRESSION: Interval development of a mixed acute and chronic subdural hematoma along the left inner convexity wi th 3 - 4 mm shift of midline structures to the right. The ER physician Dr. Carbajal was notified of this important finding immediately following interpretation on 05/11/2025 at 8:38 AM [facility], Workstation: [facility], 05/11/2025 8:40 AM
[2025-05-11] MEDS: IDARUCIZUMAB 2.5 GM in EMPTY BAG 1 BAG IV SCH (08:43)
--- NOTE | 2025-05-11 08:44 | XR ---
Chest, 2 view. CLINICAL INDICATION: Male, 70 years old with history of altered mental status COMPARISON: 05/05/2025 TECHNIQUE: PA and lateral views the chest are obtained. FINDINGS: The lungs are clear and there is no consolidative or interstitial opacity. There is no pleural effusion or pneumothorax. The heart, pulmonary vasculature, mediastinum and dalia appear normal. The osseous structures are intact. IMPRESSION: No significant abnormality seen. No acute cardiopulmonary disease. [facility], , 05/11/2025 8:41 AM
[2025-05-11 08:46] LABS: INR 1.3 (<1.2); Prothrombin Time 13.8 sec (10.0-12.5)
[2025-05-11] MEDS: SODIUM CHLORIDE 0.9% 500 ML 500 ML IV STA (08:51)
[2025-05-11 08:52] LABS: ALT 27 U/L (4-49); AST 25 U/L (17-59); African American GFR (CKD) >90 (>60 ml/min/1.73 sqM); Albumin 3.8 g/dL (3.5-5.0); Alkaline Phosphatase 68 U/L (38-126); Anion Gap 10 mmol/L; Blood Urea Nitrogen 17 mg/dL (9-20); Calcium 8.8 mg/dL (8.4-10.2); Carbon Dioxide 26 mmol/L (22-30); Chloride 104 mmol/L (98-107); Creatine Kinase 33 U/L (55-170); Glucose 119 mg/dL (74-99); Non-African American GFR(CKD) >90 (>60 ml/min/1.73 sqM); Potassium 3.4 mmol/L (3.5-5.1); Sodium 140 mmol/L (137-145); Total Bilirubin 0.7 mg/dL (0.2-1.3); Total Protein 6.6 g/dL (6.3-8.2)
[2025-05-11 09:23] VITALS: BP 138/89; PULSE 82; RESP 17
== END 2025-05-11 09:23 | disposition other institution (70) ==
LOC: EC 07:47
DX: S06.5XAA Traumatic subdural hemorrhage with loss of consciousness status unknown, initial encounter (principal); X58.XXXA Exposure to other specified factors, initial encounter
CPT/HCPCS: 36415; 93005; 80053; 82550; 84484; 85025; 85610; 85730; 71046; 70450; 99291; 96374; C9399